=== PATIENT | female | born 1965 | race Caucasian/White ===

== ENCOUNTER 2021-06-28 13:21 | Emergency (ER) | payer OTHER, MEDICARE, MEDICAID, SELFPAY ==
[2021-06-28] VITALS (9 sets, daily range): BP systolic 107–141; BP diastolic 53–85; PULSE 65–89; RESP 18–28; TEMP 36.1; O2SAT 92–98; BMI 44.2
--- NOTE | 2021-06-28 13:36 | ED_ITS ---
HPI - Fall General Chief Complaint: Fall Stated Complaint: Fall Rt. knee & ankle pain Time Seen by Provider: 06/28/21 13:26 Source: patient and EMS Mode of arrival: EMS History of Present Illness HPI Narrative: Patient is a 56-year-old female who was brought in by EMS for injuries that she sustained to her right ankle and right knee and right hip and left elbow and left wrist. Injuries occurred prior to arrival where she was walking inside. She states she slipped on the steps and fell. She did not hit her head. She arrived not in a cervical collar not on a backboard but did not describe any back pain or neck pain. No headache. No loss of consciousness. She did have a air cast placed on her right leg and left arm. She did receive fentanyl IM prior to arrival. Related Data Allergies Allergy/AdvReac Type Severity Reaction Status Date / Time acetaminophen [From [facility]] Allergy Verified 06/28/21 13:33 codeine Allergy Verified 06/28/21 13:34 erythromycin base Allergy Verified 06/28/21 13:34 pamabrom [From [facility]] Allergy Verified 06/28/21 13:33 Review of Systems Constitutional Constitutional: Denies frequent falls and Denies headache(s) ENT Ears, Nose, Mouth, and Throat: Denies vertigo, Denies dizziness and Denies headache(s) Cardiovascular Cardiovascular: Denies chest pain and Denies dyspnea Respiratory Respiratory: Denies dyspnea Gastrointestinal Gastrointestinal: Denies abdominal pain Musculoskeletal Musculoskeletal: Reports system reviewed and no additional complaints, except as documented and Reports as per HPI Integumentary/Breasts Skin/Breast: Reports system reviewed and no additional complaints, except as documented Neurologic Neurologic: Denies confusion, Denies vertigo, Denies dizziness, Denies frequent falls and Denies headache(s) Psychiatric Psychiatric: Denies confusion Hematologic/Lymphatic On Anticoagulants: No Patient History Social History (Updated 06/28/21 @ 14:34 by Mynor Montano DO) lives independently: Yes Exam Initial Vital Signs Initial Vital Signs: Vital Signs Temperature 97.0 F L 06/28/21 13:20 Pulse Rate 79 06/28/21 13:20 Respiratory Rate 22 06/28/21 13:20 Blood Pressure 127/64 06/28/21 13:20 Pulse Oximetry 96 06/28/21 13:20 Const General: cooperative and healthy appearing [facility] Head: normal to inspection and normocephalic Resp Effort & Inspection: normal respiratory effort Auscultation: clear to auscultation bilaterally Cardio Rate: regular rate Rhythm: regular rhythm Pulses: radial pulses present on the left and dorsalis pedis present on the right GI Inspection: normal to inspection and non-distended Back/Spine/Pelvis Cervical Spine: No cervical spinal tenderness Skin General: no rashes or lesions noted Neuro General: patient alert, patient awake and patient oriented x3 Extrem Other: Left lower extremities unremarkable. Right upper extremity is unremarkable. Has tenderness to palpation around the left elbow and also the left wrist. Her left shoulder is unremarkable. Her right lower extremity is tender in the ankle knee and thigh and hip. Psych Appearance: grossly normal and well kempt Scores GCS Simon coma scale eye opening: Spontaneous Simon coma scale verbal response: Orientated Redbird coma scale motor response: Obey commands Redbird coma scale total score: 15 Nexus Score for C-Spine Focal Neurologic deficit present: No Midline spinal tenderness present: No Altered level of conciousness present: No Intoxication present: No Distracting Injury Present: No Nexus Criteria for C-spine: 0 Course Orders Ordered: ED Orders 06/28/21 13:50 XR ankle RT min 3V Stat XR elbow LT min 3V Stat XR hip w pel if done RT 2V Stat XR knee RT 1to2V Stat XR wrist LT min 3V Stat Discontinued Medications Hydromorphone HCl (Hydromorphone 1 Mg Inj) 1 mg IV NOW ONE Stop: 06/28/21 13:51 Last Admin: 06/28/21 14:12 Dose: 1 mg Documented by: NELSY Vital Signs Vital signs: Vital Signs - 8 hr 06/28/21 13:20 06/28/21 13:58 06/28/21 14:00 Temperature 97.0 F L Pulse Rate 79 75 88 Respiratory Rate 22 Blood Pressure 127/64 137/71 Pulse Oximetry 96 94 94 06/28/21 14:30 06/28/21 15:00 06/28/21 15:01 Temperature Pulse Rate 72 65 89 Respiratory Rate 18 18 Blood Pressure 133/63 141/85 H Pulse Oximetry 98 94 94 06/28/21 15:30 06/28/21 15:31 06/28/21 16:00 Temperature Pulse Rate 69 71 68 Respiratory Rate 28 H 26 H 20 Blood Pressure 107/53 L 107/53 L Pulse Oximetry 93 92 92 MDM - Fall Imaging Data Wrist x-ray: Radiologist's Impression: [address] [address] XRay Report Signed Patient: Bernarda Chong MR#: [id number] : 1965 Acct:[id number] Age/Sex: 56 / F Date of Service: 06/28/21 Loc: ED Accession Number: [id number] ?? Procedure: XR wrist LT min 3V Ordering Provider: Mynor Montano D.O. PROCEDURE:? XR WRIST LT MIN 3V ? INDICATIONS: pain after fall ? TECHNIQUE:? 3 views of the wrist were acquired.? ? COMPARISON:? None. ? FINDINGS:? ? Bones:? No acute fractures or dislocations.? No suspicious bony lesions.? Severe degenerative changes of the 1st carpometacarpal joint. ? Soft tissues:? No suspicious soft tissue calcifications.? ? IMPRESSION:? No acute osseous abnormality.? If clinical suspicion and/or symptoms persist, additional imaging with repeat plain films, or advanced imaging (e.g. CT, MRI) may be helpful for further assessment. ? ? Dictated by: Juan R Tee M.D. on 06/28/2021 at 14:57 ? ? Approved by: uJan R Tee M.D. on 06/28/2021 at 15:01 Knee x-ray: Radiologist's Impression: [address] [address] XRay Report Signed Patient: Bernarda Chong MR#: [id number] : 1965 Acct:[id number] Age/Sex: 56 / F Date of Service: 06/28/21 Loc: ED Accession Number: [id number] ?? Procedure: XR knee RT 1to2V Ordering Provider: Mynor Montano D.O. PROCEDURE:? XR KNEE RT 1TO2V ? INDICATIONS:? pain after fall ? TECHNIQUE:? 2 views of the knee were acquired.? ? COMPARISON:? None. ? FINDINGS:? ? Bones:? 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 Hardware appears intact.? No acute osseous abnormality. ? Soft tissues:? No joint effusion.? No suspicious soft tissue calcifications.? Medial varicose veins are noted. ? IMPRESSION:? 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 No acute osseous abnormality.? If clinical suspicion and/or symptoms persist, additional imaging with repeat plain films, or advanced imaging (e.g. CT, MRI) may be helpful for further assessment. ? ? Dictated by: Juan R Tee M.D. on 06/28/2021 at 15:03 ? ? Approved by: Juan R Tee M.D. on 06/28/2021 at 15:03? Ankle x-ray: Radiologist's Impression: [place] [address] XRay Report Signed Patient: Bernarda Chong MR#: [id number] : 1965 Acct:[id number] Age/Sex: 56 / F Date of Service: 06/28/21 Loc: ED Accession Number: [id number] ?? Procedure: XR ankle RT min 3V Ordering Provider: Mynor Montano D.O. PROCEDURE:? XR ANKLE RT MIN 3V ? INDICATIONS:? pain after fall ? TECHNIQUE:? 3 views of the ankle were acquired.? ? COMPARISON:? None. ? FINDINGS:? ? Bones:? No acute fractures or dislocations.? Ankle mortise is normally aligned.? No suspicious bony lesions.? Right knee arthroplasty is partially imaged.? Small posterior calcaneal enthesophyte. ? Soft tissues:? No suspicious soft tissue calcifications. ? ? IMPRESSION:? No acute osseous abnormality.? If clinical suspicion and/or symptoms persist, additional imaging with repeat plain films, or advanced imaging (e.g. CT, MRI) may be helpful for further assessment. ? ? Dictated by: Juan R Tee M.D. on 06/28/2021 at 15:04 ? ? Approved by: Juan R Tee M.D. on 06/28/2021 at 15:05 X-ray hip: Radiologist's Impression: [address] [address] XRay Report Signed Patient: Bernarda Chong MR#: [id number] : 1965 Acct:[id number] Age/Sex: 56 / F Date of Service: 06/28/21 Loc: ED Accession Number: [id number] ?? Procedure: XR hip w pel if done RT 2V Ordering Provider: Mynor Montano D.O. PROCEDURE:? XR HIP W PEL IF DONE RT 2V ? INDICATIONS:? pain after fall ? TECHNIQUE:? AP pelvis with lateral view of the right hip.? ? COMPARISON:? None. ? FINDINGS:? ? Bones:? No acute fractures or dislocations.? Pelvic ring appears intact.? No suspicious bony lesions.? Degenerative changes are noted in the spine. ? Soft tissues:? The visualized bowel gas pattern is normal.? No suspicious soft tissue calcifications.? Surgical clip is seen projecting over the pelvis. ? ? IMPRESSION:? No acute osseous abnormality.? If clinical suspicion and/or symptoms persist, additional imaging with repeat plain films, or advanced imaging (e.g. CT, MRI) may be helpful for further assessment. ? ? Dictated by: Juan R Tee M.D. on 06/28/2021 at 15:09 ? ? Approved by: Juan R Tee M.D. on 06/28/2021 at 15:10?? Elbow x-ray: Radiologist's Impression: [place] [address] XRay Report Signed Patient: Bernarda Chong MR#: [id number] : 1965 Acct:[id number] Age/Sex: 56 / F Date of Service: 06/28/21 Loc: ED Accession Number: [id number] ?? Procedure: XR elbow LT min 3V Ordering Provider: Mynor Montano D.O. PROCEDURE:? XR ELBOW LT MIN 3V ? INDICATIONS:? pain after fall ? TECHNIQUE:? 3 views of the elbow were acquired.? ? COMPARISON:? None. ? FINDINGS:? ? Bones:? No acute fractures or dislocations.? No suspicious bony lesions.? ? Soft tissues:? No elbow joint effusion.? No suspicious soft tissue calcifications.? ? ? IMPRESSION:? No acute osseous abnormality.? If clinical suspicion and/or symptoms persist, additional imaging with repeat plain films, or advanced imaging (e.g. CT, MRI) may be helpful for further assessment. ? ? Dictated by: Juan R Tee M.D. on 06/28/2021 at 15:05 ? ? Approved by: Juan R Tee M.D. on 06/28/2021 at 15:08 MDM Narrative Medical decision making narrative: No fractures noted on any of the x-rays. She did not hit her head. No neck pain. This did appear to be a mechanical fall per her report. Patient can take Tylenol ibuprofen for discomfort. Hold on further workup for now. Patient was given return precautions follow-up instructions. She expressed understanding and agreement. Discharge Plan Departure Patient Disposition: Home Clinical Impression: Arm pain, left, Pain in right leg Instructions: How to Prevent Falls Activity Restrictions/Additional Instructions: There were no fractures noted on the x-rays. You can walk-in use your left arm as tolerated. You can take Tylenol/ibuprofen for any discomfort. Continue the rest of your medications as directed. Contact your primary doctor for a follow- up. Referrals: Kristen Lopez MD [Family Provider] -
--- NOTE | 2021-06-28 13:50 | DI.RAD.S_ITS ---
PROCEDURE: XR ANKLE RT MIN 3V INDICATIONS: pain after fall TECHNIQUE: 3 views of the ankle were acquired. COMPARISON: None. FINDINGS: Bones: No acute fractures or dislocations. Ankle mortise is normally aligned. No suspicious bony lesions. Right knee arthroplasty is partially imaged. Small posterior calcaneal enthesophyte. Soft tissues: No suspicious soft tissue calcifications. IMPRESSION: No acute osseous abnormality. If clinical suspicion and/or symptoms persist, additional imaging with repeat plain films, or advanced imaging (e.g. CT, MRI) may be helpful for further assessment. Dictated by: Juan R Tee M.D. on 06/28/2021 at 15:04 Approved by: Juan R Tee M.D. on 06/28/2021 at 15:05
--- NOTE | 2021-06-28 13:50 | DI.RAD.S_ITS ---
PROCEDURE: XR HIP W PEL IF DONE RT 2V INDICATIONS: pain after fall TECHNIQUE: AP pelvis with lateral view of the right hip. COMPARISON: None. FINDINGS: Bones: No acute fractures or dislocations. Pelvic ring appears intact. No suspicious bony lesions. Degenerative changes are noted in the spine. Soft tissues: The visualized bowel gas pattern is normal. No suspicious soft tissue calcifications. Surgical clip is seen projecting over the pelvis. IMPRESSION: No acute osseous abnormality. If clinical suspicion and/or symptoms persist, additional imaging with repeat plain films, or advanced imaging (e.g. CT, MRI) may be helpful for further assessment. Dictated by: Juan R Tee M.D. on 06/28/2021 at 15:09 Approved by: Juan R Tee M.D. on 06/28/2021 at 15:10
--- NOTE | 2021-06-28 13:50 | DI.RAD.S_ITS ---
PROCEDURE: XR ELBOW LT MIN 3V INDICATIONS: pain after fall TECHNIQUE: 3 views of the elbow were acquired. COMPARISON: None. FINDINGS: Bones: No acute fractures or dislocations. No suspicious bony lesions. Soft tissues: No elbow joint effusion. No suspicious soft tissue calcifications. IMPRESSION: No acute osseous abnormality. If clinical suspicion and/or symptoms persist, additional imaging with repeat plain films, or advanced imaging (e.g. CT, MRI) may be helpful for further assessment. Dictated by: Juan R Tee M.D. on 06/28/2021 at 15:05 Approved by: Juan R Tee M.D. on 06/28/2021 at 15:08
--- NOTE | 2021-06-28 13:50 | DI.RAD.S_ITS ---
PROCEDURE: XR KNEE RT 1TO2V INDICATIONS: pain after fall TECHNIQUE: 2 views of the knee were acquired. COMPARISON: None. FINDINGS: Bones: Postsurgical changes are seen from a total knee arthroplasty. Hardware appears intact. No acute osseous abnormality. Soft tissues: No joint effusion. No suspicious soft tissue calcifications. Medial varicose veins are noted. 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 No acute osseous abnormality. If clinical suspicion and/or symptoms persist, additional imaging with repeat plain films, or advanced imaging (e.g. CT, MRI) may be helpful for further assessment. Dictated by: Juan R Tee M.D. on 06/28/2021 at 15:03 Approved by: Juan R Tee M.D. on 06/28/2021 at 15:03
--- NOTE | 2021-06-28 13:50 | DI.RAD.S_ITS ---
PROCEDURE: XR WRIST LT MIN 3V INDICATIONS: pain after fall TECHNIQUE: 3 views of the wrist were acquired. COMPARISON: None. FINDINGS: Bones: No acute fractures or dislocations. No suspicious bony lesions. Severe degenerative changes of the 1st carpometacarpal joint. Soft tissues: No suspicious soft tissue calcifications. IMPRESSION: No acute osseous abnormality. If clinical suspicion and/or symptoms persist, additional imaging with repeat plain films, or advanced imaging (e.g. CT, MRI) may be helpful for further assessment. Dictated by: Juan R Tee M.D. on 06/28/2021 at 14:57 Approved by: Juan R Tee M.D. on 06/28/2021 at 15:01
[2021-06-28] MEDS: HYDROMORPHONE 1 MG INJ IV (14:12)
== END 2021-06-28 16:01 | disposition home or self-care (01) ==
PROVIDERS: Emergency Provider Emergency Medicine; Family Provider Internal Medicine; PCP Physician Assistant Medical
DX: M25.571 Pain in right ankle and joints of right foot (principal); M25.561 Pain in right knee; M25.551 Pain in right hip; M25.522 Pain in left elbow; M25.532 Pain in left wrist; W10.9XXA Fall (on) (from) unspecified stairs and steps, initial encounter
CPT/HCPCS: 73080; 73110; 73502; 73560; 73610; 96374; 99283; 99284; J1170

== ENCOUNTER 2022-07-16 11:44 | Inpatient (IN) | payer MEDICARE, MEDICAID, SELFPAY ==
[2022-07-16] VITALS (37 sets, daily range): BP systolic 109–149; BP diastolic 48–78; PULSE 30–89; RESP 8–39; TEMP 32–36.8; O2SAT 78–95; BMI 74.4
--- NOTE | 2022-07-16 12:10 | ED_ITS ---
HPI - General Adult General Chief complaint: Shortness of Breath/Dyspnea Stated complaint: Sob, congestive heart failure per pt Time Seen by Provider: 07/16/22 12:04 Source: patient Mode of arrival: Family Vehicle Limitations: no limitations History of Present Illness HPI narrative: Patient is a 57-year-old female. She states she is a history of COPD. Is on home oxygen but only occasionally. Also reports a history of heart failure. [facility] after spending approximately 5 days in the hospital for what sounds like a COPD exacerbation/CHF. I am not 100% convinced this. We have called to request records however what the patient states was that she was receiving nebulizer treatments and was also on ?water restriction. She states that she was not getting any better. There was a conflict with the providers so she decided to leave Against Medical Advice. She came to this emergency department. Here she describes shortness of breath and chest discomfort. No abdominal pain. Generally just does not feel very well. No abdominal pain. No lower extremity swelling. Patient was hypoxic upon arrival. Apparently when she was discharged from the hospital her oxygen saturations were in the 70s. Related Data Allergies Allergy/AdvReac Type Severity Reaction Status Date / Time acetaminophen [From Midol] Allergy Verified 06/28/21 13:33 codeine Allergy Verified 06/28/21 13:34 erythromycin base Allergy Verified 06/28/21 13:34 pamabrom [From Midol] Allergy Verified 06/28/21 13:33 Review of Systems Review of Systems ROS Unobtainable: All systems reviewed & are unremarkable except as noted in HPI and below Patient History Medical History COPD (chronic obstructive pulmonary disease) Social History lives independently: Yes Smoking Status: Current every day smoker Exam Initial Vital Signs Initial Vital Signs: Vital Signs Temperature 98.1 F 07/16/22 11:50 Pulse Rate 73 07/16/22 11:50 Respiratory Rate 24 07/16/22 11:50 Blood Pressure 124/67 07/16/22 11:50 Pulse Oximetry 78 L 07/16/22 11:50 Oxygen Delivery Method Room Air 07/16/22 11:50 Const General: cooperative and ill appearing [facility] Head: normal to inspection and normocephalic Resp Effort & Inspection: labored, respiratory distress and tachypneic Auscultation: rhonchi and wheezes Cardio Rate: regular rate Rhythm: regular rhythm GI Inspection: normal to inspection and non-distended Skin General: no rashes or lesions noted Neuro General: patient alert, patient awake and moves all extremities Extrem General: No edema Psych Appearance: disheveled Course Orders Ordered: ED Orders 07/16/22 12:06 Complete Blood Count AUTO DIFF Stat Comprehensive Metabolic Panel Stat Lactate (Lactic Acid) Stat Lipase Stat NT-proBNP (BNP-Adult 18+) Stat Procalcitonin Stat Troponin & CK Cardiac Panel Stat 07/16/22 12:11 XR chest 1V Stat EKG-12 Lead Stat 07/16/22 13:05 EC echo doppler complete Stat 07/16/22 13:06 Respiratory Panel (Film Array) Stat 07/16/22 13:53 Consult to Cardio/Pulmonary Rehabilitation Routine Consult to Discharge Planning Routine Consult to Occupational Therapy Evaluate & Treat Consult to Physical Therapy Evaluate & Treat Education, smoking cessation ONGOING RT Consult Eval and Treat Now 07/17/22 05:00 Basic Metabolic Panel DAILY Complete Blood Count AUTO DIFF DAILY Magnesium DAILY 07/18/22 05:00 Basic Metabolic Panel DAILY Complete Blood Count AUTO DIFF DAILY 07/19/22 05:00 Basic Metabolic Panel DAILY Complete Blood Count AUTO DIFF DAILY Acetazolamide (Acetazolamide 250 Mg Tablet) 250 mg PO BID [facility] Last Admin: 07/16/22 15:19 Dose: Not Given Documented By: LAURIE Albuterol (Albuterol 2.5 Mg/3 Ml Neb (Adult)) 2.5 mg INH [id number] PRN PRN Reason: Shortness Of Breath Albuterol/Ipratropium (Albuterol/Ipratropium 3 Ml Ampul) 3 ml INH [id number] [facility] Last Admin: 07/16/22 15:05 Dose: 3 ml Documented By: BARBARA Budesonide (Budesonide 0.5 Mg/2 Ml Neb) 0.5 mg INH RTBID [facility] Dextrose (Dextrose 50 % In Water 25 Gm/50 Ml Syringe) 25 gm IV PRN PRN PRN Reason: Hypoglycemia Doxycycline Hyclate (Doxycycline Hyclate 100 Mg Tablet) 100 mg PO BID [facility] Enoxaparin Sodium (Enoxaparin 40 Mg/0.4 Ml Syringe) 40 mg SUBCUT BID [facility] Furosemide (Furosemide 40 Mg/4 Ml Vial) 40 mg IV Q12HR [facility] Insulin Human Lispro (Insulin Lispro 100 Unit/Ml 3ml Vial) 0 unit SUBCUT ACHS [facility]; Protocol Methylprednisolone (Methylprednisolone 125 Mg/2 Ml Vial) 80 mg IV Q12H [facility] Last Admin: 07/16/22 14:47 Dose: Not Given Documented By: LAURIE Naloxone HCl (Naloxone 0.4 Mg/Ml Vial) 0.2 mg IV Q2MIN PRN PRN Reason: Opiate Reversal Discontinued Medications Albuterol/Ipratropium (Albuterol/Ipratropium 3 Ml Ampul) 3 ml INH NOW ONE Stop: 07/16/22 12:11 Last Admin: 07/16/22 12:18 Dose: 3 ml Documented By: BARBARA(2) Albuterol/Ipratropium (Albuterol/Ipratropium 3 Ml Ampul) 3 ml INH [id number] [facility] Doxycycline Hyclate 100 mg/ (Sodium Chloride) 100 mls @ 100 mls/hr IV NOW ONE Stop: 07/16/22 12:56 Last Admin: 07/16/22 14:18 Dose: Not Given Documented By: GLORIA Methylprednisolone (Methylprednisolone 125 Mg/2 Ml Vial) 125 mg IV NOW ONE Stop: 07/16/22 12:35 Last Admin: 07/16/22 12:43 Dose: 125 mg Documented By: NR Vital Signs Vital signs: Vital Signs - 8 hr 07/16/22 11:50 07/16/22 12:18 07/16/22 12:00 Temperature 98.1 F Pulse Rate 73 89 73 Respiratory Rate 24 30 H Blood Pressure 124/67 Pulse Oximetry 78 L 89 L Oxygen Delivery Method Room Air Nasal Cannula Oxygen Flow Rate 4 Fraction of Inspired Oxygen 36 07/16/22 12:30 07/16/22 12:33 07/16/22 12:33 Temperature Pulse Rate 61 61 Respiratory Rate 38 H Blood Pressure 138/60 Pulse Oximetry 91 89 L Oxygen Delivery Method Oxygen Flow Rate Fraction of Inspired Oxygen 07/16/22 13:00 Temperature Pulse Rate 71 Respiratory Rate Blood Pressure Pulse Oximetry 90 L Oxygen Delivery Method Nasal Cannula Oxygen Flow Rate 5 Fraction of Inspired Oxygen Medical Decision Making Lab Data Lab results reviewed: Yes I reviewed the patient's lab results. 07/16/22 12:06 07/16/22 12:06 Labs: Lab Results 07/16/22 07/16/22 07/16/22 Range/Units 01:38 12:06 12:06 WBC 20.6 H (4.5-11.0) X10^3/uL RBC 5.11 (4.0-5.2) X10^6/uL Hgb 15.8 (12.0-16.0) g/dL Hct 48.5 H (36-46) % MCV 94.8 (80-100) fL MCH 30.9 (26-34) PG MCHC 32.6 (30-36) % RDW 14.0 (11.6-14.8) % Plt Count 320 (150-400) X10^3/uL Neut % (Auto) 87.9 H (50-75) % Lymph % (Auto) 5.0 L (25-40) % Riley % (Auto) 7.0 (3-14) % Eos % (Auto) 0.0 L (2-4) % Baso % (Auto) 0.1 (0-2) % Neut # (Auto) 47858 H (9551-7587) /uL Lymph # (Auto) 1000 L (2807-0884) /uL Riley # (Auto) 1400 H (0-900) /uL Eos # (Auto) 0 (0-450) /uL Baso # (Auto) 0 (0-100) /uL ABG pH 7.45 (7.35-7.45) ABG pCO2 69.4 H* (35-45) mmHg ABG pO2 50 L (80-100) mmHg ABG HCO3 48 H (23-27) mmol/L ABG Total CO2 50 H (23-27) mmol/L ABG O2 Saturation 84 L* (95-100) % ABG Base Excess 24.0 H (-2-3) mmol/L FiO2 40 Sodium 136 L (137-145) mmol/L Potassium 4.1 (3.4-5.1) mmol/L Chloride 90 L (98-107) mmol/L Carbon Dioxide 38 H (22-32) mmol/L BUN 41 H (7-17) mg/dL Creatinine 0.80 (0.52-1.04) mg/dL Estimated GFR > 60 (>60) mL/min BUN/Creatinine Ratio 51.3 H (6-22) Glucose 248 H (70-100) mg/dL Lactate (0.7-2.1) mmol/L Calcium 9.5 (8.4-10.2) mg/dL Total Bilirubin 0.7 (0.2-1.3) mg/dL AST 31 (14-36) IU/L ALT 74 H (<35) IU/L Alkaline Phosphatase 83 (38-126) U/L Total Creatine Kinase 36 (30-135) U/L CK-MB (CK-2) TNP CK-MB (CK-2) Rel Index TNP Troponin I < 0.012 (0.01-0.034) ng/mL NT-Pro-B Natriuret Pep 2860 H (<125) pg/mL Total Protein 7.0 (6.3-8.2) g/dL Albumin 3.8 (3.5-5.0) g/dL Globulin 3.2 (1.7-4.1) g/dL Albumin/Globulin Ratio 1.2 (1.0-2.8) Lipase 43 (23-300) U/L Procalcitonin 0.06 (<0.5) ng/mL Chlamy pneumoniae PCR (Not Detect) Adenovirus (PCR) (Not Detect) B. pertussis DNA (PCR) (Not Detecte) B.parapertussis DNA PCR (Not Detecte) Coronavirus OC43 (PCR) (Not Detect) Coronavirus HKU1 (PCR) (Not Detect) Coronavirus 229E (PCR) (Not Detect) SARS-CoV-2 (PCR) (Not Detecte) Coronavirus NL63 (PCR) (Not Detect) Human Metapneumovir PCR (Not Detect) Influenza Type A (PCR) (Not Detect) Influenza Type B (PCR) (Not Detect) M. pneumoniae (PCR) (Not Detect) Parainfluenza 1 (PCR) (Not Detect) Parainfluenza 2 (PCR) (Not Detect) Parainfluenza 3 (PCR) (Not Detect) Parainfluenza 4 (PCR) (Not Detect) RSV (PCR) (Not Detect) Entero/Rhino (PCR) (Not Detect) 07/16/22 07/16/22 Range/Units 12:06 13:06 WBC (4.5-11.0) X10^3/uL RBC (4.0-5.2) X10^6/uL Hgb (12.0-16.0) g/dL Hct (36-46) % MCV (80-100) fL MCH (26-34) PG MCHC (30-36) % RDW (11.6-14.8) % Plt Count (150-400) X10^3/uL Neut % (Auto) (50-75) % Lymph % (Auto) (25-40) % Riley % (Auto) (3-14) % Eos % (Auto) (2-4) % Baso % (Auto) (0-2) % Neut # (Auto) (7527-3286) /uL Lymph # (Auto) (0006-6103) /uL Riley # (Auto) (0-900) /uL Eos # (Auto) (0-450) /uL Baso # (Auto) (0-100) /uL ABG pH (7.35-7.45) ABG pCO2 (35-45) mmHg ABG pO2 (80-100) mmHg ABG HCO3 (23-27) mmol/L ABG Total CO2 (23-27) mmol/L ABG O2 Saturation (95-100) % ABG Base Excess (-2-3) mmol/L FiO2 Sodium (137-145) mmol/L Potassium (3.4-5.1) mmol/L Chloride (98-107) mmol/L Carbon Dioxide (22-32) mmol/L BUN (7-17) mg/dL Creatinine (0.52-1.04) mg/dL Estimated GFR (>60) mL/min BUN/Creatinine Ratio (6-22) Glucose (70-100) mg/dL Lactate 2.2 H (0.7-2.1) mmol/L Calcium (8.4-10.2) mg/dL Total Bilirubin (0.2-1.3) mg/dL AST (14-36) IU/L ALT (<35) IU/L Alkaline Phosphatase (38-126) U/L Total Creatine Kinase (30-135) U/L CK-MB (CK-2) CK-MB (CK-2) Rel Index Troponin I (0.01-0.034) ng/mL NT-Pro-B Natriuret Pep (<125) pg/mL Total Protein (6.3-8.2) g/dL Albumin (3.5-5.0) g/dL Globulin (1.7-4.1) g/dL Albumin/Globulin Ratio (1.0-2.8) Lipase (23-300) U/L Procalcitonin (<0.5) ng/mL Chlamy pneumoniae PCR Not detected (Not Detect) Adenovirus (PCR) Not detected (Not Detect) B. pertussis DNA (PCR) Not detected (Not Detecte) B.parapertussis DNA PCR Not detected (Not Detecte) Coronavirus OC43 (PCR) Not detected (Not Detect) Coronavirus HKU1 (PCR) Not detected (Not Detect) Coronavirus 229E (PCR) Not detected (Not Detect) SARS-CoV-2 (PCR) Not detected (Not Detecte) Coronavirus NL63 (PCR) Not detected (Not Detect) Human Metapneumovir PCR Detected H (Not Detect) Influenza Type A (PCR) Not detected (Not Detect) Influenza Type B (PCR) Not detected (Not Detect) M. pneumoniae (PCR) Not detected (Not Detect) Parainfluenza 1 (PCR) Not detected (Not Detect) Parainfluenza 2 (PCR) Not detected (Not Detect) Parainfluenza 3 (PCR) Not detected (Not Detect) Parainfluenza 4 (PCR) Not detected (Not Detect) RSV (PCR) Not detected (Not Detect) Entero/Rhino (PCR) Not detected (Not Detect) Imaging Data Chest x-ray: Radiologist's Impression: PROCEDURE:? XR CHEST 1V ? INDICATIONS:? SOB ? TECHNIQUE:? One view of the chest was acquired.? ? COMPARISON:? None. ? FINDINGS:? ? Surgical changes and devices:? Left chest wall pacer is seen with an intact lead. ? Lungs and pleura:? Lungs are clear.? No pleural effusions or pneumothorax.? Diff use pulmonary vascular congestion bilaterally. ? Mediastinum:? Mediastinal contours appear normal.? Heart size is enlarged.? ? Bones and chest wall:? No suspicious bony lesions.? Overlying soft tissues appear unremarkable.? ? IMPRESSION:? Cardiomegaly with pulmonary vascular congestion. ECG Data Attestation: I personally reviewed and interpreted this ECG as follows: Interpretation: Sinus rhythm Ventricular rate is 66 Left bundle branch block No ST T wave changes MDM Narrative Medical decision making narrative: Patient arrived hypoxic and in respiratory distress. Attempted to obtain records initially from the hospital where she left Against Medical Advice. Unsure whether not she was being treated for pneumonia, COPD, CHF were all of the above. Patient was placed on oxygen. I did discuss the case with Dr. Mcnair with Internal Medicine for admission who has access to the EMR of the facility where the patient was just discharged. She was able to look up the patient's record. It appears that she was admitted for both COPD and CHF. Given her presentation today patient does require admission to the hospital. She is hypoxic. Patient stated that she is willing to be admitted to the hospital. Medicine will admit for further evaluation and treatment. Discharge Plan Departure Patient Disposition: Admitted As Inpatient Clinical Impression: Acute exacerbation of chronic obstructive airways disease, Congestive heart f ailure, Hypoxia Admit Date/Time: 07/16/22 13:14 Admit Provider: Jadyn Mcnair
--- NOTE | 2022-07-16 12:11 | DI.RAD.S_ITS ---
PROCEDURE: XR CHEST 1V INDICATIONS: SOB TECHNIQUE: One view of the chest was acquired. COMPARISON: None. FINDINGS: Surgical changes and devices: Left chest wall pacer is seen with an intact lead. Lungs and pleura: Lungs are clear. No pleural effusions or pneumothorax. Diffuse pulmonary vascular congestion bilaterally. Mediastinum: Mediastinal contours appear normal. Heart size is enlarged. Bones and chest wall: No suspicious bony lesions. Overlying soft tissues appear unremarkable. IMPRESSION: Cardiomegaly with pulmonary vascular congestion. Dictated by: Agustin Foster M.D. on 07/16/2022 at 11:50 Approved by: Agustin Foster M.D. on 07/16/2022 at 11:50
[2022-07-16] MEDS: ALBUTEROL/IPRATROPIUM 3 ML AMPUL INH ×4 (12:18→22:15)
[2022-07-16 12:20] LABS: Add Manual Diff / Slide Review NO; Basophils Absolute Auto 0 /uL (0-100); Basophils Percent Auto 0.1 % (0-2); Eosinophils Absolute Auto 0 /uL (0-450); Hematocrit 48.5 % (36-46); Hemoglobin 15.8 g/dL (12.0-16.0); Lymphocytes Absolute Auto 1000 /uL (1100-4500); Mean Corpuscular HGB Conc 32.6 % (30-36); Mean Corpuscular Hemoglobin 30.9 PG (26-34); Mean Corpuscular Volume 94.8 fL (80-100); Monocytes Absolute Auto 1400 /uL (0-900); Neutrophils Absolute Auto 18100 /uL (1500-7000); Neutrophils Percent Auto 87.9 % (50-75); Platelet Count 320 X10^3/uL (150-400); Red Blood Cell Count 5.11 X10^6/uL (4.0-5.2); White Blood Cell Count 20.6 X10^3/uL (4.5-11.0)
--- NOTE | 2022-07-16 12:21 | PC.NURSE ---
Pt was at [facility], admitted as patient and left AMA because she felt like they were not listening to her, they would not give her anything to drink and they were giving her medications that would make her feel worse. they said she had bronchitis. has hx of COPD, CHF and states her lungs are filling with fluid she is struggling to breathe.
[2022-07-16 12:25] LABS: Lactate (Lactic Acid) 2.2 mmol/L (0.7-2.1)
[2022-07-16 12:26] LABS: Alanine Aminotransferase 74 IU/L (<35); Albumin 3.8 g/dL (3.5-5.0); Albumin Globulin Ratio 1.2 (1.0-2.8); Alkaline Phosphatase 83 U/L (38-126); Aspartate Aminotransferase 31 IU/L (14-36); BUN Creatinine Ratio 51.3 (6-22); Bilirubin Total 0.7 mg/dL (0.2-1.3); Blood Urea Nitrogen 41 mg/dL (7-17); Calcium 9.5 mg/dL (8.4-10.2); Chloride 90 mmol/L (98-107); Creatine Kinase 36 U/L (30-135); Estimated Glomerular Filt Rate > 60 mL/min (>60); Globulin 3.2 g/dL (1.7-4.1); Glucose 248 mg/dL (70-100); Lipase 43 U/L (23-300); Potassium 4.1 mmol/L (3.4-5.1); Sodium 136 mmol/L (137-145)
[2022-07-16 12:33] LABS: HEMOLYSIS 43 (0-50)
[2022-07-16 12:34] LABS: Carbon Dioxide 38 mmol/L (22-32)
[2022-07-16 12:38] LABS: NT-proBNP (BNP-Adult 18+) 2860 pg/mL (<125); Troponin I < 0.012 ng/mL (0.01-0.034)
[2022-07-16 12:42] LABS: Procalcitonin 0.06 ng/mL (<0.5)
[2022-07-16] MEDS: methylPREDNISolone 125 MG/2 ML VIAL IV (12:43)
--- NOTE | 2022-07-16 13:09 | PM.HP.1 ---
History of Present Illness History of Present Illness Chief complaint: Sob, congestive heart failure per pt Narrative: 57-year-old female with COPD, chronic hypoxic respiratory failure (prescribed 2-3 L of oxygen continuously), chronic systolic congestive heart failure, coronary artery disease with her 1st [place] at age 29 previous cardiac arrest status post pacemaker/AICD placement, diabetes mellitus type 2 on oral antidiabetic agents, class 3 obesity, who presented after leaving Against Medical Advice from [facility] today after a 5 day hospitalization. Patient was admitted to [facility] on July 11, 2022. She presented complaining of a 1 day history of severe shortness of breath. She reported using 2-3 L of oxygen continuously but her granddaughter reported over the month prior she had been increasing it to 4 L due to her shortness of breath. She was given steroids and found to have a combination of both congestive heart failure and COPD exacerbation. She was hypoxic in the emergency department and required supplemental O2. She was admitted with acute on chronic hypoxic respiratory failure felt to be secondary to acute on chronic systolic CHF and COPD exacerbation. She was placed on IV diuretics, fluid restriction of 2000 cc, IV Solu-Medrol, and her usual home medications. She did test positive for human metapneumovirus which was felt to be the etiology of her COPD exacerbation. On July 14, she was able to be weaned from 4 L of oxygen to 3 L of oxygen. However, patient was having her granddaughter bring in potato chips and extra fluids due to complaining of thirst well on the fluid restricted diet. This morning, patient requested to leave Against Medical Advice. She was noted to take her oxygen off and have sats down to 70% room air. She ultimately had her granddaughter take her from [facility] and brought her to [facility] Emergency Department. Her primary care provider referred her to hospice in June of this year. She had an informational visit with hospice but reported she continued to want aggressive interventions for her disease processes. With regard to her coronary artery disease, she reportedly has had multiple MIs as noted with the 1st 1 occurring at age 29. On arrival to the emergency department, patient was noted to be hypoxic at 78% in room air. She came up to 89% on 4 L. Respiratory rate increased over her time in the emergency department to a max of 38. She did require titration to 5 L via nasal cannula due to continuing low oxygen saturations. Labs revealed a white blood cell count of 20.6 (it was 16 at [facility] today), hemoglobin 15.8, hematocrit 40.5, platelets 320. Chemistry revealed a sodium of 136, potassium 4.1, chloride 90, bicarb 38, BUN 41, creatinine 0.8, glucose 248. Initial lactate was 2.2. ALT was elevated at 74. BNP was 2860. Troponin was less than 0.012. Again human metapneumovirus was positive. All other viral respiratory studies were negative. Chest x-ray revealed cardiomegaly with pulmonary vascular congestion. Due to worsening anemia and patient complaints of severe shortness of breath, an ABG was performed. PH was 7.45, pCO2 69, PO2 50, bicarb 48, O2 sat 84% on 40% FiO2. Due to her persistent respiratory distress and overall fatigue, BiPAP was placed upon transfer from the emergency department to the ICU. RT notes since BiPAP has been placed, her respiratory status is improved. She is presently on FiO2 of 35%. She does answer questions with a brief shake her head yes or no. She does outer head yes that she is feeling better with the BiPAP. She also reiterates her full code status. Patient History Medical History COPD (chronic obstructive pulmonary disease) Comment: Past medical history: Chronic hypoxic respiratory failure, prescribed home O2 at 2 L at rest, 3 L with activity Chronic systolic congestive heart failure ejection fraction not known History of cardiac arrest, status post pacemaker/AICD placement Atrial fibrillation on chronic anticoagulation with Eliquis Hypertension Hyperlipidemia Coronary artery disease with prior OH Alcohol dependence in remission History of longstanding tobacco abuse Diabetes mellitus type 2 Obesity with BMI of 74 CKD 3 Chronic pain syndrome Family & Social History Social History: lives independently Yes Safety & Behavioral: Feels Safe in Current Yes Environment Been Physically Hurt or No Threatened By a Person Tobacco & Substance use: Smoking Status Current every day smoker Substance Use Type does not use Comment: Family history: Mother has Alzheimer's disease, hyperlipidemia, and hypertension Father from cancer Social history: Patient quit smoking in 2020. Prior to that she had smoked 1 and half packs per day for nearly 50 years History of alcohol dependence in remission Meds Home Medications and Allergies Allergies Allergy/AdvReac Type Severity Reaction Status Date / Time acetaminophen [From [facility]] Allergy Verified 06/28/21 13:33 codeine Allergy Verified 06/28/21 13:34 erythromycin base Allergy Verified 06/28/21 13:34 pamabrom [From [facility]] Allergy Verified 06/28/21 13:33 Review of Systems Review of Systems Narrative: Unable to obtain review of systems secondary to patient's respiratory status Exam Vital Signs (past 8 hours): - 07/16/22 11:50 07/16/22 12:18 07/16/22 12:00 Temperature 98.1 F Pulse Rate 73 89 73 Respiratory Rate 24 30 H Blood Pressure 124/67 Pulse Oximetry 78 L 89 L Oxygen Delivery Method Room Air Nasal Cannula Oxygen Flow Rate 4 Fraction of Inspired Oxygen 36 07/16/22 12:30 07/16/22 12:33 07/16/22 12:33 Temperature Pulse Rate 61 61 Respiratory Rate 38 H Blood Pressure 138/60 Pulse Oximetry 91 89 L Oxygen Delivery Method Oxygen Flow Rate Fraction of Inspired Oxygen Fraction of Inspired Oxygen 36 SaO2/FiO2 Ratio 247 Oxygen Delivery Method Nasal Cannula Oxygen Flow Rate 4 Narrative Exam Narrative: GEN: Acutely and chronically ill-appearing middle-aged female, drowsy but responsive, appears to be oriented to self and situation, no acute distress HEENT: Normocephalic, face symmetric, pupils equal round reactive to light, extraocular movements intact, sclerae anicteric, conjunctiva clear, oropharyngeal exam can not be performed secondary to having BiPAP in place NECK: Supple, no lymphadenopathy, can not palpate any thyroid nodularity, carotid arteries can not be heard over the BiPAP and respiratory noises CHEST: Respiratory excursions symmetric, clear to auscultation bilaterally CV: Regular rate and rhythm, no murmurs, rubs, gallops, PMI can not be palpated ABD: Firm, obese, nontender, nondistended, bowel sounds present in all 4 quadrants, body habitus limits exam EXTR: Warm, well perfused, no clubbing/cyanosis/edema SKIN: Warm and dry, without rash NEURO: Drowsy, follows simple commands, ears grossly intact PSYCH: Mood, affect, judgment, and insight can not be assessed Objective Labs 07/16/22 12:06 07/16/22 12:06 Labs: Laboratory Results - last 24 hr 07/16/22 07/16/22 07/16/22 12:06 12:06 12:06 WBC 20.6 H RBC 5.11 Hgb 15.8 Hct 48.5 H MCV 94.8 MCH 30.9 MCHC 32.6 RDW 14.0 Plt Count 320 Neut % (Auto) 87.9 H Lymph % (Auto) 5.0 L Toole % (Auto) 7.0 Eos % (Auto) 0.0 L Baso % (Auto) 0.1 Neut # (Auto) 41256 H Lymph # (Auto) 1000 L Toole # (Auto) 1400 H Eos # (Auto) 0 Baso # (Auto) 0 Sodium 136 L Potassium 4.1 Chloride 90 L Carbon Dioxide 38 H BUN 41 H Creatinine 0.80 Estimated GFR > 60 BUN/Creatinine Ratio 51.3 H Glucose 248 H Lactate 2.2 H Calcium 9.5 Total Bilirubin 0.7 AST 31 ALT 74 H Alkaline Phosphatase 83 Total Creatine Kinase 36 CK-MB (CK-2) TNP CK-MB (CK-2) Rel Index TNP Troponin I < 0.012 NT-Pro-B Natriuret Pep 2860 H Total Protein 7.0 Albumin 3.8 Globulin 3.2 Albumin/Globulin Ratio 1.2 Lipase 43 Procalcitonin 0.06 Assessment & Plan Assessment & Plan narrative: 1. Acute on chronic hypoxic and hypercarbic respiratory failure Patient presents after leaving outside hospital Against Medical Advice after a 5 day hospital stay. While there, she received diuresis, fluid restriction, IV steroids, and respiratory treatments. Upon arriving to our emergency department, she was hypoxic with room air saturations of 70%, tachypneic, and noting severe respiratory distress. Chest x-ray reveals evidence of congestive heart failure. Exam also indicates a component of COPD exacerbation. Will restart furosemide 40 mg IV b.i.d.. Will also place on Solu-Medrol 80 mg IV q.12. She does have significant hypercarbia thus will also add Diamox. We will continue BiPAP for relief of her severe respiratory distress. Fortunately, she appears reasonably well compensated by her ABG. 2. Acute on chronic systolic congestive heart failure exacerbation Congestive heart failure noted on chest x-ray as well as on previous imaging done at the outside hospital. No echocardiogram available in records to denote the severity of her congestive heart failure. Will obtain an echocardiogram. Continue diuresis as noted above with IV Lasix and Diamox. She does have significant azotemia with a BUN of 41 today. This appears to be consistent with labs at the outside hospital. We will continue close monitoring. There is also report of CKD 3, but here her creatinine is normal at 0.8. We will monitor her renal function closely. Ashraf catheter will be placed. 3. COPD exacerbation, likely secondary to metapneumovirus infection Continue her outpatient respiratory medications. As noted, continue IV Solu-Medrol 80 mg q.12. Will start budesonide as well. Duo nebs 4 times daily scheduled 4. Metapneumovirus infection She tested positive both at the outside hospital and on today's labs. She is afebrile. She does have a leukocytosis but this is likely steroid induced rather than related to an infection as she was afebrile and not complaining of URI symptoms for the duration of her hospitalization at the outside hospital. 5. Coronary artery disease with prior OH Troponin here is negative. Await medication reconciliation. 6. History of cardiac arrest, status post pacemaker/AICD placement Per outside records, she reports receiving a shock a couple of times a year. I am uncertain when she last had her device interrogated. 7. Atrial fibrillation on chronic anticoagulation with Eliquis No RVR at this time. Regular on exam. Await medication reconciliation to confirm that she is indeed taking Eliquis at this time. 8. Diabetes mellitus type 2 On oral medications only per report. A1c at the outside facility was reported to be 8%. Will place on fingersticks and sliding scale. 9. Class 3 obesity with BMI of 42.2 Her obesity puts her at significant risk of morbidity and mortality. Would greatly benefit from weight reduction. 10. Reported CKD stage 3 As noted, outside documentation shows history of CKD 3. However here her GFR and creatinine are normal. Will monitor. 11. Chronic pain syndrome uncertain if she takes chronic opioid medication at baseline. She is not presently complaining of any pain. Would avoid opioids for now given her BiPAP dependence, as I suspect she also has a component of obesity hypoventilation syndrome. 12. Hypertension Blood pressures are normotensive here. Await medication reconciliation to confirm meds. 13. Hyperlipidemia Await medication reconciliation to confirm meds. Code status Full Prophylaxis Appears to be on Eliquis chronically. Await medication reconciliation Disposition Admit to ICU with eICU consult. I personally spoke with Dr. Baltazar. Time Spent With Patient Critical Care time: I spent a total of [] minutes of critical care time on this patient's care today; this time is exclusive of procedural time.
[2022-07-16 13:53] LABS: pH ABG 7.45 (7.35-7.45)
[2022-07-16 13:54] LABS: HCO3 ABG 48 mmol/L (23-27); PCO2 ABG 69.4 mmHg (35-45); PO2 ABG 50 mmHg (80-100); TCO2 ABG 50 mmol/L (23-27)
[2022-07-16 13:55] LABS: Fractionated Inspired Oxygen 40; Oxygen Saturation ABG 84 % (95-100)
[2022-07-16 14:03] LABS: Adenovirus Not Detected (Not Detect); B. parapertussis Not Detected (Not Detecte); Bordetella pertussis Not Detected (Not Detecte); Chlamydophila pneumoniae Not Detected (Not Detect); Coronavirus 229E Not Detected (Not Detect); Coronavirus HKU1 Not Detected (Not Detect); Coronavirus NL 63 Not Detected (Not Detect); Coronavirus OC43 Not Detected (Not Detect); Human Metapneumovirus Detected (Not Detect); Human Rhinovirus/Enterovirus Not Detected (Not Detect); Influenza A Not Detected (Not Detect); Influenza B Not Detected (Not Detect); Mycoplasma pneumoniae Not Detected (Not Detect); Parainfluenza Virus 1 Not Detected (Not Detect); Parainfluenza Virus 2 Not Detected (Not Detect); Parainfluenza Virus 3 Not Detected (Not Detect); Parainfluenza Virus 4 Not Detected (Not Detect); Respiratory Syncytial Virus Not Detected (Not Detect); SARS- CoV-2 Not Detected (Not Detecte)
[2022-07-16 14:16] LABS: Reflexed Lactate in 2 Hours Y
[2022-07-16 16:14] LABS: Lactate 2HR (Lactic Acid Rflx) 2.2 mmol/L (0.7-2.1)
[2022-07-16] MEDS: INSULIN LISPRO 100 UNIT/ML 3ML VIAL SUBCUT ×2 (17:08→22:02)
--- NOTE | 2022-07-16 17:20 | P.TELICUCN_ITS ---
History of Present Illness Consult details IF CAMERA ACTIVATED, patient seen via real-time interactive audiovisual communication: Camera activated Chief complaint: Sob, congestive heart failure per pt Consent obtained for tele-shipping specialist care: Yes Patient Location: ICU Provider location (State): [place] Other participants/roles: Dr. Mcnair, RN Narrative: 57-year-old female with COPD, chronic hypoxic respiratory failure (prescribed 2- 3 L of oxygen continuously), chronic systolic congestive heart failure, coronary artery disease with her 1st [place] at age 29 previous cardiac arrest status post pacemaker/AICD placement, diabetes mellitus type 2 on oral antidiabetic agents, class 3 obesity, admitted tohe ICU for furhter management of acute hypoxemic resp fialure which likely multifactorial from AECOPD, CHF exacerbation + human metapneumovirus. Pt was recently hospitalized and signed out AMA, however due to worsneing SOB she presented [facility], and required bipapa due worsneign hypoxemia. She has end stage COPD at baseline and in on 2-3l NC, but her requirements have increased lately. phenotype of her COPD is unknown due ot lack of CT imaging. On ym eval this afternoon ,she was somnolescent but synchrnous on bipap with adequate TV. ABG with hypercapnea which likely her ba seline, but she is not acidotic. XR chest with pulmonary vascular congestion, additionaly her left hemidiaphragm is elevated - however the film is very rotated. [facility] Medical History COPD (chronic obstructive pulmonary disease) Social History lives independently: Yes Smoking Status: Current every day smoker Current Medications Current Medications Medications: Visit Medications (administered) Generic Name Dose Route Start Last Admin Trade Name Freq PRN Reason Stop Dose Admin Acetazolamide 250 mg 07/16/22 14:15 07/16/22 15:19 Acetazolamide 250 Mg Tablet PO Not Given BID BRANDON Albuterol/Ipratropium 3 ml 07/16/22 15:00 07/16/22 15:05 Albuterol/Ipratropium 3 Ml Ampul INH 3 ml [id number] BRANDON Administration Insulin Human Lispro 0 unit 07/16/22 16:45 07/16/22 17:08 Insulin Lispro 100 Unit/Ml 3ml Vial SUBCUT 3 unit ACHS [facility] Administration Protocol Methylprednisolone 80 mg 07/16/22 13:53 07/16/22 14:47 Methylprednisolone 125 Mg/2 Ml Vial IV Not Given Q12H [facility] Review of Systems Review of Systems Narrative: unable to obtain Exam Vital Signs (past 8 hours): - 07/16/22 11:50 07/16/22 12:18 07/16/22 12:00 Temperature 98.1 F Pulse Rate 73 89 73 Respiratory Rate 24 30 H Blood Pressure 124/67 Pulse Oximetry 78 L 89 L Oxygen Delivery Method Room Air Nasal Cannula Oxygen Flow Rate 4 Fraction of Inspired Oxygen 36 07/16/22 12:30 07/16/22 12:33 07/16/22 12:33 Temperature Pulse Rate 61 61 Respiratory Rate 38 H Blood Pressure 138/60 Pulse Oximetry 91 89 L Oxygen Delivery Method Oxygen Flow Rate Fraction of Inspired Oxygen 07/16/22 13:00 07/16/22 14:18 07/16/22 13:30 Temperature Pulse Rate 71 Respiratory Rate Blood Pressure 129/60 120/54 L Pulse Oximetry 90 L Oxygen Delivery Method Nasal Cannula Oxygen Flow Rate 5 Fraction of Inspired Oxygen 35 07/16/22 13:30 07/16/22 14:00 07/16/22 14:19 Temperature Pulse Rate 30 L 59 L Respiratory Rate Blood Pressure 129/60 Pulse Oximetry 88 L 86 L Oxygen Delivery Method Nasal Cannula Oxygen Flow Rate 5 Fraction of Inspired Oxygen 07/16/22 14:19 07/16/22 14:30 07/16/22 15:05 Temperature Pulse Rate 60 60 Respiratory Rate Blood Pressure Pulse Oximetry 89 L 90 L Oxygen Delivery Method Oxygen Flow Rate Fraction of Inspired Oxygen 35 07/16/22 13:41 07/16/22 16:36 07/16/22 17:13 Temperature 97.5 F L Pulse Rate 60 66 Respiratory Rate 33 H 30 H Blood Pressure 112/56 L Pulse Oximetry 90 L 93 Oxygen Delivery Method BiPAP High Flow Nasal Cannula Oxygen Flow Rate 4 Fraction of Inspired Oxygen Fraction of Inspired Oxygen 35 SaO2/FiO2 Ratio 247 Oxygen Delivery Method High Flow Nasal Cannula Oxygen Flow Rate 4 Narrative Exam Narrative: surrogate for full exam is primary team Objective Labs 07/16/22 12:06 07/16/22 12:06 Labs: Laboratory Results - last 24 hr 07/16/22 07/16/22 07/16/22 01:38 12:06 12:06 WBC 20.6 H RBC 5.11 Hgb 15.8 Hct 48.5 H MCV 94.8 MCH 30.9 MCHC 32.6 RDW 14.0 Plt Count 320 Neut % (Auto) 87.9 H Lymph % (Auto) 5.0 L [place] % (Auto) 7.0 Eos % (Auto) 0.0 L Baso % (Auto) 0.1 Neut # (Auto) 89641 H Lymph # (Auto) 1000 L [place] # (Auto) 1400 H Eos # (Auto) 0 Baso # (Auto) 0 ABG pH 7.45 ABG pCO2 69.4 H* ABG pO2 50 L ABG HCO3 48 H ABG Total CO2 50 H ABG O2 Saturation 84 L* ABG Base Excess 24.0 H FiO2 40 Sodium 136 L Potassium 4.1 Chloride 90 L Carbon Dioxide 38 H BUN 41 H Creatinine 0.80 Estimated GFR > 60 BUN/Creatinine Ratio 51.3 H Glucose 248 H Lactate Calcium 9.5 Total Bilirubin 0.7 AST 31 ALT 74 H Alkaline Phosphatase 83 Total Creatine Kinase 36 CK-MB (CK-2) TNP CK-MB (CK-2) Rel Index TNP Troponin I < 0.012 NT-Pro-B Natriuret Pep 2860 H Total Protein 7.0 Albumin 3.8 Globulin 3.2 Albumin/Globulin Ratio 1.2 Lipase 43 Procalcitonin 0.06 Chlamy pneumoniae PCR Adenovirus (PCR) B. pertussis DNA (PCR) B.parapertussis DNA PCR Coronavirus OC43 (PCR) Coronavirus HKU1 (PCR) Coronavirus 229E (PCR) SARS-CoV-2 (PCR) Coronavirus NL63 (PCR) Human Metapneumovir PCR Influenza Type A (PCR) Influenza Type B (PCR) M. pneumoniae (PCR) Parainfluenza 1 (PCR) Parainfluenza 2 (PCR) Parainfluenza 3 (PCR) Parainfluenza 4 (PCR) RSV (PCR) Entero/Rhino (PCR) 07/16/22 07/16/22 07/16/22 12:06 13:06 13:30 WBC RBC Hgb Hct MCV MCH MCHC RDW Plt Count Neut % (Auto) Lymph % (Auto) [place] % (Auto) Eos % (Auto) Baso % (Auto) Neut # (Auto) Lymph # (Auto) [place] # (Auto) Eos # (Auto) Baso # (Auto) ABG pH ABG pCO2 ABG pO2 ABG HCO3 ABG Total CO2 ABG O2 Saturation ABG Base Excess FiO2 Sodium Potassium Chloride Carbon Dioxide BUN Creatinine Estimated GFR BUN/Creatinine Ratio Glucose Lactate 2.2 H 2.2 H Calcium Total Bilirubin AST ALT Alkaline Phosphatase Total Creatine Kinase CK-MB (CK-2) CK-MB (CK-2) Rel Index Troponin I NT-Pro-B Natriuret Pep Total Protein Albumin Globulin Albumin/Globulin Ratio Lipase Procalcitonin Chlamy pneumoniae PCR Not detected Adenovirus (PCR) Not detected B. pertussis DNA (PCR) Not detected B.parapertussis DNA PCR Not detected Coronavirus OC43 (PCR) Not detected Coronavirus HKU1 (PCR) Not detected Coronavirus 229E (PCR) Not detected SARS-CoV-2 (PCR) Not detected Coronavirus NL63 (PCR) Not detected Human Metapneumovir PCR Detected H Influenza Type A (PCR) Not detected Influenza Type B (PCR) Not detected M. pneumoniae (PCR) Not detected Parainfluenza 1 (PCR) Not detected Parainfluenza 2 (PCR) Not detected Parainfluenza 3 (PCR) Not detected Parainfluenza 4 (PCR) Not detected RSV (PCR) Not detected Entero/Rhino (PCR) Not detected Assessment & Plan Assessment and plan (1) Acute exacerbation of chronic obstructive airways disease: Status: Acute (2) Acute hypoxemic respiratory failure: Status: Acute (3) Acute metabolic encephalopathy: Status: Acute (4) CHF exacerbation: Status: Acute (5) Human metapneumovirus (hMPV) pneumonia: Status: Acute Assessment & Plan narrative: continue bipap for now if her respiratory function worsens oer GCS drops < 8, she will nee to be intubated trend ABG TTE map at goal NPO while on bipap trend bmp and montor UO goal negative balance empric abx - though I do think her eleavted wbc is also due to steroids from previous hospitalizaiton dvt ppx repeat XR chest f/u d esantiago cx duonebs steroid taper consider CT chest when imrpoved palliative care consult Time Spent With Patient Critical Care time: I spent a total of 35[] minutes of critical care time on this patient's care today; this time is exclusive of procedural time.
--- NOTE | 2022-07-16 17:27 | PC.NURSE ---
patient tolerated bipap from admission to roughly 1715. switched to 4L high-flow NC while eating.
[2022-07-16 18:58] LABS: MRSA (Nasal) PCR Not Detected (Not Detect)
[2022-07-16] MEDS: BUDESONIDE 0.5 MG/2 ML NEB INH (20:08)
[2022-07-16] MEDS: ALBUTEROL 2.5 MG/3 ML NEB (ADULT) INH (20:08)
[2022-07-16] MEDS: diphenhydrAMINE 25 MG TABLET 50 MG PO (20:14)
[2022-07-16] MEDS: ONDANSETRON 4 MG/2 ML INJ IV (20:14)
--- NOTE | 2022-07-16 20:38 | PM.ICURNDS ---
- :: This patient was seen via real time interactive two-way audiovisual telecommunication. Rakeleitradha seems to be improving, currently off bipap on NC and is not hypoxemic. will aim for a net negative balance, and contineu bipap overnight, cont nebs prn abd steroid taper.
[2022-07-16] MEDS: acetaZOLAMIDE 250 MG TABLET PO (21:22)
[2022-07-16] MEDS: DOXYCYCLINE HYCLATE 100 MG TABLET PO (21:22)
[2022-07-16 21:49] LABS: Glucose 502 mg/dL (70-100)
--- NOTE | 2022-07-16 21:58 | PC.NURSE ---
accucheck done with result of > 500, test repeated twice and lab work drawn. Agustín informed and awaiting lab results. Lab results 502 and Agustín notified. Sliding scale changed to medium dose and awaiting pharmacy approval.
[2022-07-16] MEDS: INSULIN REGULAR 100 UNIT/ML 3 ML VIAL SUBCUT (22:15)
[2022-07-16] MEDS: FUROSEMIDE 40 MG/4 ML VIAL IV (23:52)
[2022-07-17] VITALS (55 sets, daily range): BP systolic 96–168; BP diastolic 52–99; PULSE 59–81; RESP 14–47; TEMP 32–36.8; O2SAT 89–97
[2022-07-17] MEDS: methylPREDNISolone 125 MG/2 ML VIAL 80 MG IV ×2 (01:54→14:47)
[2022-07-17] MEDS: OXYCODONE IR 5 MG TABLET PO ×5 (01:59→21:02)
[2022-07-17] MEDS: ACETAMINOPHEN 325 MG TABLET 650 MG PO ×2 (02:00→21:03)
[2022-07-17 05:20] LABS: Add Manual Diff / Slide Review NO; Basophils Absolute Auto 0 /uL (0-100); Basophils Percent Auto 0.1 % (0-2); Eosinophils Absolute Auto 0 /uL (0-450); Hematocrit 46.5 % (36-46); Hemoglobin 15.2 g/dL (12.0-16.0); Lymphocytes Absolute Auto 600 /uL (1100-4500); Lymphocytes Percent Auto 3.7 % (25-40); Mean Corpuscular HGB Conc 32.7 % (30-36); Mean Corpuscular Hemoglobin 30.9 PG (26-34); Mean Corpuscular Volume 94.5 fL (80-100); Monocytes Absolute Auto 800 /uL (0-900); Monocytes Percent Auto 4.6 % (3-14); Neutrophils Absolute Auto 15700 /uL (1500-7000); Neutrophils Percent Auto 91.6 % (50-75); Platelet Count 264 X10^3/uL (150-400); Red Blood Cell Count 4.92 X10^6/uL (4.0-5.2); Red Cell Distribution Width 13.9 % (11.6-14.8); White Blood Cell Count 17.1 X10^3/uL (4.5-11.0)
[2022-07-17 05:30] LABS: BUN Creatinine Ratio 33.1 (6-22); Blood Urea Nitrogen 42 mg/dL (7-17); Calcium 8.7 mg/dL (8.4-10.2); Chloride 90 mmol/L (98-107); Estimated Glomerular Filt Rate 49 mL/min (>60); Glucose 290 mg/dL (70-100); HEMOLYSIS < 15 (0-50); Magnesium 2.3 mg/dL (1.6-2.3); Potassium 4.2 mmol/L (3.4-5.1); Sodium 137 mmol/L (137-145)
--- NOTE | 2022-07-17 05:32 | DI.ECHO.S_ITS ---
Interpretation Summary The ejection fraction is estimated to be 25-30%. There is moderate to severe global hypokinesis of the left ventricle. Severe hypokinesisi of the inferior wall and posterolateral wall. There is a catheter/pacemaker lead seen in the right atrium. There is mild mitral regurgitation. There is a trace or physiologic amount of tricuspid regurgitation. Procedure: A two-dimensional transthoracic echocardiogram with color flow and Doppler was performed. The study quality was technically difficult. Comparison is made with the echocardiogram of 01/21/2020. EKG artifact throughout exam. The heart rate ranged between 50-80 bpm during the study. Left Ventricle: The left ventricle is moderately dilated. There is mild concentric left ventricular hypertrophy. The ejection fraction is estimated to be 25-30%. There is moderate to severe global hypokinesis of the left ventricle. Right Ventricle: The right ventricle is normal size. There is a pacemaker lead in the right ventricle. Right ventricular systolic function is mildly reduced. Atria: The left atrial size is normal. Right atrial size is normal. There is a catheter/pacemaker lead seen in the right atrium. There is no Doppler evidence for an interatrial shunt. Mitral Valve: The mitral valve is normal in structure and function. There is mild mitral regurgitation. Aortic Valve: The aortic valve opens well. There is no aortic valve stenosis. No aortic regurgitation is present. Tricuspid Valve: The tricuspid valve is normal in structure and function. There is a trace or physiologic amount of tricuspid regurgitation. Pulmonary artery pressures cannot be estimated because of the lack of a measurable TR jet velocity. Pulmonic Valve: The pulmonic valve is not well visualized. There is no pulmonic valvular regurgitation. Great Vessels: The aortic root is normal size. The dimensions of the ascending aorta are normal. The IVC is of normal diameter and collapses greater than 50% with a sniff. This suggests a low right atrial pressure of 3 mm Hg. Pericardium/ Pleura There is no pericardial effusion. There is no pleural effusion. MMode/2D Measurements & Calculations LVIDd: 6.5 cm LVOT diam: 2.2 cm LVIDs: 5.5 cm Ao root diam: 2.9 cm FS: 15.9 % asc Aorta Diam: 3.4 cm EPSS: 2.2 cm Ao Arch Diam (Prox Trans): 3.0 cm IVSd: 1.1 cm LVPWd: 0.87 cm LV conner. diameter/BSA (cm/m^2): 3.1 LV sys. diameter/BSA (cm/m^2): 2.6 LA A2 area: 20.8 cm2 RA long axis: 5.6 cm LA A4 area: 21.1 cm2 RA area: 19.3 cm2 LA length (vol): 5.5 cm RA vol: 56.8 ml LA vol: 68.4 ml RA : 27.2 ml/m2 LA vol index: 32.8 ml/m2 IVC diam: 1.2 cm RVD1 (basal): 3.6 cm RVD2 (mid): 2.9 cm TAPSE: 1.6 cm Doppler Measurements & Calculations Ao V2 max: 166.3 cm/sec LVOT Max Vijay: 74.7 cm/sec Ao V2 mean: 128.3 cm/sec LV V1 max P.2 mmHg Ao max P.1 mmHg LV V1 VTI: 17.3 cm Ao mean P.0 mmHg SHELLI(I,D): 1.8 cm2 Ao V2 VTI: 37.1 cm SHELLI(V,D): 1.7 cm2 sev ratio: 0.47 SHELLI indexed to BSA (cm^2/m^2): 0.86 MV E max vijay: 74.7 cm/sec PA V2 max: 109.6 cm/sec MV A max vijay: 49.9 cm/sec PA V2 mean: 76.5 cm/sec MV E/A: 1.5 PA mean P.5 mmHg Med Peak E' Vijay: 3.8 cm/sec E/E' med: 19.5 Lat Peak E' Vijay: 7.2 cm/sec E/E' lat: 10.4 E/e' average: 15.0 MV dec time: 0.24 sec SV(LVOT): 66.8 ml Reading Physician:09:48 AM
[2022-07-17 05:37] LABS: Carbon Dioxide 39 mmol/L (22-32)
[2022-07-17] MEDS: ALBUTEROL/IPRATROPIUM 3 ML AMPUL INH ×5 (05:52→23:27)
--- NOTE | 2022-07-17 09:00 | P.PN_ITS ---
Subjective Subjective Interval history: Patient needed bipap briefly this morning but now off. Able to downgrade from ICU status. Echo pending. Exam Vital Signs (past 8 hours): - 07/17/22 01:01 07/17/22 01:01 07/17/22 01:25 Temperature Pulse Rate 60 60 Respiratory Rate 20 35 H Blood Pressure 120/57 L Pulse Oximetry 97 92 Oxygen Delivery Method Oxygen Flow Rate 4 4 4 07/17/22 01:30 07/17/22 01:30 07/17/22 02:01 Temperature Pulse Rate 60 60 Respiratory Rate 31 H 26 H Blood Pressure 142/72 H Pulse Oximetry 93 96 Oxygen Delivery Method Oxygen Flow Rate 4 4 4 07/17/22 02:01 07/17/22 02:13 07/17/22 02:31 Temperature Pulse Rate 60 62 Respiratory Rate 25 H 26 H Blood Pressure 132/58 L Pulse Oximetry 95 95 Oxygen Delivery Method Oxygen Flow Rate 4 4 4 07/17/22 02:31 07/17/22 03:00 07/17/22 03:00 Temperature Pulse Rate 60 Respiratory Rate 31 H Blood Pressure 121/77 125/60 Pulse Oximetry 90 L Oxygen Delivery Method Oxygen Flow Rate 4 4 4 07/17/22 03:05 07/17/22 04:00 07/17/22 03:30 Temperature Pulse Rate 60 60 Respiratory Rate 28 H 25 H Blood Pressure Pulse Oximetry 95 95 Oxygen Delivery Method High Flow Nasal Cannula Oxygen Flow Rate 4 4 07/17/22 03:30 07/17/22 04:00 07/17/22 04:00 Temperature 97.0 F L Pulse Rate 60 Respiratory Rate 24 Blood Pressure 136/63 145/67 H Pulse Oximetry 95 Oxygen Delivery Method Oxygen Flow Rate 4 4 4 07/17/22 04:28 07/17/22 04:30 07/17/22 04:30 Temperature Pulse Rate 60 60 Respiratory Rate 30 H 27 H Blood Pressure 151/66 H Pulse Oximetry 94 94 Oxygen Delivery Method Oxygen Flow Rate 4 4 4 07/17/22 05:01 07/17/22 05:01 07/17/22 05:03 Temperature Pulse Rate 60 60 Respiratory Rate 24 28 H Blood Pressure 135/62 Pulse Oximetry 96 96 Oxygen Delivery Method Oxygen Flow Rate 4 4 4 07/17/22 05:31 07/17/22 05:31 07/17/22 06:01 Temperature Pulse Rate 60 Respiratory Rate 26 H Blood Pressure 132/60 133/60 Pulse Oximetry 95 Oxygen Delivery Method Oxygen Flow Rate 4 4 4 07/17/22 06:01 07/17/22 06:31 07/17/22 06:31 Temperature Pulse Rate 60 60 Respiratory Rate 33 H 26 H Blood Pressure 123/56 L Pulse Oximetry 90 L 92 Oxygen Delivery Method Oxygen Flow Rate 4 4 4 07/17/22 06:54 07/17/22 07:00 07/17/22 07:00 Temperature Pulse Rate 60 60 Respiratory Rate 34 H 32 H Blood Pressure 110/54 L Pulse Oximetry 94 92 Oxygen Delivery Method Oxygen Flow Rate 4 07/17/22 07:30 07/17/22 07:31 07/17/22 07:31 Temperature Pulse Rate 60 60 Respiratory Rate 22 24 Blood Pressure 103/62 Pulse Oximetry 93 92 Oxygen Delivery Method Oxygen Flow Rate 07/17/22 08:00 07/17/22 08:01 07/17/22 08:01 Temperature 97.7 F Pulse Rate 60 60 Respiratory Rate 22 24 Blood Pressure 122/57 L Pulse Oximetry 92 92 Oxygen Delivery Method Oxygen Flow Rate 07/17/22 08:30 07/17/22 08:31 07/17/22 08:31 Temperature Pulse Rate 68 61 Respiratory Rate 26 H 27 H Blood Pressure 128/56 L Pulse Oximetry 90 L 91 Oxygen Delivery Method Oxygen Flow Rate Fraction of Inspired Oxygen 36 SaO2/FiO2 Ratio 250 Oxygen Delivery Method High Flow Nasal Cannula Oxygen Flow Rate 4 Narrative Exam Narrative: GEN: Acutely and chronically ill-appearing middle-aged female, drowsy but responsive, appears to be oriented to self and situation, no acute distress HEENT: Normocephalic, face symmetric, pupils equal round reactive to light, ex traocular movements intact, sclerae anicteric, conjunctiva clear, oropharyngeal exam can not be performed secondary to having BiPAP in place NECK: Supple, no lymphadenopathy, can not palpate any thyroid nodularity, carotid arteries can not be heard over the BiPAP and respiratory noises CHEST: Respiratory excursions symmetric, diffuse wheezes and coarse breath sounds CV: Regular rate and rhythm, no murmurs, rubs, gallops, PMI can not be palpated ABD: Firm, obese, nontender, nondistended, bowel sounds present in all 4 quadrants, body habitus limits exam EXTR: Warm, well perfused, no clubbing/cyanosis/edema SKIN: Warm and dry, without rash NEURO: Drowsy, follows simple commands, ears grossly intact PSYCH: Mood, affect, judgment, and insight can not be assessed Objective Labs 07/17/22 04:39 07/17/22 04:39 Labs: Laboratory Results - last 24 hr 07/16/22 07/16/22 07/16/22 01:38 12:06 12:06 WBC 20.6 H RBC 5.11 Hgb 15.8 Hct 48.5 H MCV 94.8 MCH 30.9 MCHC 32.6 RDW 14.0 Plt Count 320 Neut % (Auto) 87.9 H Lymph % (Auto) 5.0 L [place] % (Auto) 7.0 Eos % (Auto) 0.0 L Baso % (Auto) 0.1 Neut # (Auto) 01704 H Lymph # (Auto) 1000 L [place] # (Auto) 1400 H Eos # (Auto) 0 Baso # (Auto) 0 ABG pH 7.45 ABG pCO2 69.4 H* ABG pO2 50 L ABG HCO3 48 H ABG Total CO2 50 H ABG O2 Saturation 84 L* ABG Base Excess 24.0 H FiO2 40 Sodium 136 L Potassium 4.1 Chloride 90 L Carbon Dioxide 38 H BUN 41 H Creatinine 0.80 Estimated GFR > 60 BUN/Creatinine Ratio 51.3 H Glucose 248 H Lactate Calcium 9.5 Magnesium Total Bilirubin 0.7 AST 31 ALT 74 H Alkaline Phosphatase 83 Total Creatine Kinase 36 CK-MB (CK-2) TNP CK-MB (CK-2) Rel Index TNP Troponin I < 0.012 NT-Pro-B Natriuret Pep 2860 H Total Protein 7.0 Albumin 3.8 Globulin 3.2 Albumin/Globulin Ratio 1.2 Lipase 43 Procalcitonin 0.06 Nasal Screen MRSA (PCR) Chlamy pneumoniae PCR Adenovirus (PCR) B. pertussis DNA (PCR) B.parapertussis DNA PCR Coronavirus OC43 (PCR) Coronavirus HKU1 (PCR) Coronavirus 229E (PCR) SARS-CoV-2 (PCR) Coronavirus NL63 (PCR) Human Metapneumovir PCR Influenza Type A (PCR) Influenza Type B (PCR) M. pneumoniae (PCR) Parainfluenza 1 (PCR) Parainfluenza 2 (PCR) Parainfluenza 3 (PCR) Parainfluenza 4 (PCR) RSV (PCR) Entero/Rhino (PCR) 07/16/22 07/16/22 07/16/22 12:06 13:06 13:30 WBC RBC Hgb Hct MCV MCH MCHC RDW Plt Count Neut % (Auto) Lymph % (Auto) [place] % (Auto) Eos % (Auto) Baso % (Auto) Neut # (Auto) Lymph # (Auto) [place] # (Auto) Eos # (Auto) Baso # (Auto) ABG pH ABG pCO2 ABG pO2 ABG HCO3 ABG Total CO2 ABG O2 Saturation ABG Base Excess FiO2 Sodium Potassium Chloride Carbon Dioxide BUN Creatinine Estimated GFR BUN/Creatinine Ratio Glucose Lactate 2.2 H 2.2 H Calcium Magnesium Total Bilirubin AST ALT Alkaline Phosphatase Total Creatine Kinase CK-MB (CK-2) CK-MB (CK-2) Rel Index Troponin I NT-Pro-B Natriuret Pep Total Protein Albumin Globulin Albumin/Globulin Ratio Lipase Procalcitonin Nasal Screen MRSA (PCR) Chlamy pneumoniae PCR Not detected Adenovirus (PCR) Not detected B. pertussis DNA (PCR) Not detected B.parapertussis DNA PCR Not detected Coronavirus OC43 (PCR) Not detected Coronavirus HKU1 (PCR) Not detected Coronavirus 229E (PCR) Not detected SARS-CoV-2 (PCR) Not detected Coronavirus NL63 (PCR) Not detected Human Metapneumovir PCR Detected H Influenza Type A (PCR) Not detected Influenza Type B (PCR) Not detected M. pneumoniae (PCR) Not detected Parainfluenza 1 (PCR) Not detected Parainfluenza 2 (PCR) Not detected Parainfluenza 3 (PCR) Not detected Parainfluenza 4 (PCR) Not detected RSV (PCR) Not detected Entero/Rhino (PCR) Not detected 07/16/22 07/16/22 07/17/22 17:25 21:32 04:39 WBC 17.1 H RBC 4.92 Hgb 15.2 Hct 46.5 H MCV 94.5 MCH 30.9 MCHC 32.7 RDW 13.9 Plt Count 264 Neut % (Auto) 91.6 H Lymph % (Auto) 3.7 L [place] % (Auto) 4.6 Eos % (Auto) 0.0 L Baso % (Auto) 0.1 Neut # (Auto) 58424 H Lymph # (Auto) 600 L [place] # (Auto) 800 Eos # (Auto) 0 Baso # (Auto) 0 ABG pH ABG pCO2 ABG pO2 ABG HCO3 ABG Total CO2 ABG O2 Saturation ABG Base Excess FiO2 Sodium Potassium Chloride Carbon Dioxide BUN Creatinine Estimated GFR BUN/Creatinine Ratio Glucose 502 H* D Lactate Calcium Magnesium Total Bilirubin AST ALT Alkaline Phosphatase Total Creatine Kinase CK-MB (CK-2) CK-MB (CK-2) Rel Index Troponin I NT-Pro-B Natriuret Pep Total Protein Albumin Globulin Albumin/Globulin Ratio Lipase Procalcitonin Nasal Screen MRSA (PCR) Not detected Chlamy pneumoniae PCR Adenovirus (PCR) B. pertussis DNA (PCR) B.parapertussis DNA PCR Coronavirus OC43 (PCR) Coronavirus HKU1 (PCR) Coronavirus 229E (PCR) SARS-CoV-2 (PCR) Coronavirus NL63 (PCR) Human Metapneumovir PCR Influenza Type A (PCR) Influenza Type B (PCR) M. pneumoniae (PCR) Parainfluenza 1 (PCR) Parainfluenza 2 (PCR) Parainfluenza 3 (PCR) Parainfluenza 4 (PCR) RSV (PCR) Entero/Rhino (PCR) 07/17/22 04:39 WBC RBC Hgb Hct MCV MCH MCHC RDW Plt Count Neut % (Auto) Lymph % (Auto) [place] % (Auto) Eos % (Auto) Baso % (Auto) Neut # (Auto) Lymph # (Auto) [place] # (Auto) Eos # (Auto) Baso # (Auto) ABG pH ABG pCO2 ABG pO2 ABG HCO3 ABG Total CO2 ABG O2 Saturation ABG Base Excess FiO2 Sodium 137 Potassium 4.2 Chloride 90 L Carbon Dioxide 39 H BUN 42 H Creatinine 1.27 H Estimated GFR 49 L BUN/Creatinine Ratio 33.1 H Glucose 290 H D Lactate Calcium 8.7 Magnesium 2.3 Total Bilirubin AST ALT Alkaline Phosphatase Total Creatine Kinase CK-MB (CK-2) CK-MB (CK-2) Rel Index Troponin I NT-Pro-B Natriuret Pep Total Protein Albumin Globulin Albumin/Globulin Ratio Lipase Procalcitonin Nasal Screen MRSA (PCR) Chlamy pneumoniae PCR Adenovirus (PCR) B. pertussis DNA (PCR) B.parapertussis DNA PCR Coronavirus OC43 (PCR) Coronavirus HKU1 (PCR) Coronavirus 229E (PCR) SARS-CoV-2 (PCR) Coronavirus NL63 (PCR) Human Metapneumovir PCR Influenza Type A (PCR) Influenza Type B (PCR) M. pneumoniae (PCR) Parainfluenza 1 (PCR) Parainfluenza 2 (PCR) Parainfluenza 3 (PCR) Parainfluenza 4 (PCR) RSV (PCR) Entero/Rhino (PCR) [facility] Medical History COPD (chronic obstructive pulmonary disease) Social History household members: spouse lives independently: Yes Smoking Status: Current every day smoker Assessment & Plan Assessment & Plan narrative: 1. Acute on chronic hypoxic and hypercarbic respiratory failure, improving Patient presents after leaving outside hospital Against Medical Advice after a 5 day hospital stay. While there, she received diuresis, fluid restriction, IV steroids, and respiratory treatments. Upon arriving to our emergency department, she was hypoxic with room air saturations of 70%, tachypneic, and noting severe respiratory distress. Chest x-ray reveals evidence of congestive heart failure. Exam also indicates a component of COPD exacerbation likely exacerbated by metapneumovirus. Received furosemide 40 mg IV b.i.d. and Solu- Medrol 80 mg IV q.12. Initially required bipap but now on 3L NC. Lasix and diamox stopped on 06/19 due to uptrending Cr. 2. Acute on chronic systolic congestive heart failure exacerbation Congestive heart failure noted on chest x-ray as well as on previous imaging done at the outside hospital. No echocardiogram available in records to denote the severity of her congestive heart failure. Will obtain an echocardiogram. Diuresed to euvolemia. F/u echo read and hold more lasix for now. Restarted home metoprolol and aldactone. 3. COPD exacerbation, likely secondary to metapneumovirus infection Continue her outpatient respiratory medications. As noted, continue IV Solu- Medrol 80 mg q.12. Will start budesonide as well. Duo nebs 4 times daily scheduled 4. Metapneumovirus infection She tested positive both at the outside hospital and on today's labs. She is af ebrile. She does have a leukocytosis but this is likely steroid induced rather than related to an infection as she was afebrile and not complaining of URI symptoms for the duration of her hospitalization at the outside hospital. 5. Coronary artery disease with prior [place] Troponin here is negative. On eliquis. 6. History of cardiac arrest, status post pacemaker/AICD placement Per outside records, she reports receiving a shock a couple of times a year. I am uncertain when she last had her device interrogated. 7. Atrial fibrillation on chronic anticoagulation with Eliquis No RVR at this time. Regular on exam. Restarted home amio and eliquis. 8. Diabetes mellitus type 2 On oral medications only per report. A1c at the outside facility was reported to be 8%. Will place on fingersticks and sliding scale. Added lantus 25 units daily due to elevated sugars. 9. Class 3 obesity with BMI of 42.2 Her obesity puts her at significant risk of morbidity and mortality. Would greatly benefit from weight reduction. 10. Reported CKD stage 3 As noted, outside documentation shows history of CKD 3. However here her GFR and creatinine are normal. Will monitor. 11. Chronic pain syndrome uncertain if she takes chronic opioid medication at baseline. She is not presently complaining of any pain. Would avoid opioids for now given her BiPAP dependence, as I suspect she also has a component of obesity hypoventilation syndrome. 12. Hypertension Blood pressures are normotensive here. Holding home lisinopril due to uptrending Cr. 13. Hyperlipidemia Not on statin. Code status Full Prophylaxis Eliquis Disposition Downgraded from ICU 07/17. Likely 2-3 more days. Time Spent With Patient Critical Care time: I spent a total of [] minutes of critical care time on this patient's care today; this time is exclusive of procedural time.
[2022-07-17] MEDS: ENOXAPARIN 40 MG/0.4 ML SYRINGE SUBCUT (09:21)
[2022-07-17] MEDS: DOXYCYCLINE HYCLATE 100 MG TABLET PO ×2 (09:21→21:03)
[2022-07-17] MEDS: INSULIN GLARGINE 100 UNIT/ML 3ML PEN 25 UNIT SUBCUT (09:22)
--- NOTE | 2022-07-17 10:09 | PM.PN.EICU ---
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 Has since been on 4 L NC with sats between 88-94%. Has diuresed >1 L Cr bump this am Med rec in process: eliquis and amiodarone to be restarted Current Medications Current Medications Medications: Home Medications albuterol sulfate 90 mcg/actuation aerosol inhaler (Ventolin HFA) 2 puff inhalation QID PRN Shortness Of Breath 07/17/22 [History Confirmed 07/17/22] amiodarone 200 mg tablet 100 mg PO DAILY 07/17/22 [History Confirmed 07/17/22] apixaban 5 mg tablet (Eliquis) 5 mg PO BID 07/17/22 [History Confirmed 07/17/22] budesonide 90 mcg/actuation breath activated powder inhaler 2 inh inhalation BID 07/17/22 [History Confirmed 07/17/22] furosemide 40 mg tablet 40 mg PO BID 07/17/22 [History Confirmed 07/17/22] hydrocodone 5 mg-acetaminophen 325 mg tablet 1 tab PO Q6H PRN Pain (Scale Score 4-6) 07/17/22 [History Confirmed 07/17/22] lisinopril 5 mg tablet 5 mg PO DAILY 07/17/22 [History Confirmed 07/17/22] metoprolol succinate 100 mg tablet,extended release 24 hr 100 mg PO BID 07/17/22 [History Confirmed 07/17/22] montelukast 10 mg tablet 10 mg PO DAILY 07/17/22 [History Confirmed 07/17/22] prednisone 5 mg tablet 5 mg PO DAILY 07/17/22 [History Confirmed 07/17/22] spironolactone 25 mg tablet 25 mg PO DAILY 07/17/22 [History Confirmed 07/17/22] Visit Medications (administered) Generic Name Dose Route Start Last Admin Trade Name Freq PRN Reason Stop Dose Admin Acetaminophen 650 mg 07/17/22 01:53 07/17/22 02:00 Acetaminophen 325 Mg Tablet PO 650 mg Q6H PRN Administration Fever/Mild Pain (1-3) Albuterol 2.5 mg 07/16/22 14:57 07/16/22 20:08 Albuterol 2.5 Mg/3 Ml Neb (Adult) INH 2.5 mg [id number] PRN Administration Shortness Of Breath Albuterol/Ipratropium 3 ml 07/16/22 15:00 07/17/22 05:52 Albuterol/Ipratropium 3 Ml Ampul INH 3 ml [id number] BRANDON Administration Budesonide 0.5 mg 07/16/22 20:00 07/16/22 20:08 Budesonide 0.5 Mg/2 Ml Neb INH 0.5 mg RTBID BRANDON Administration Diphenhydramine HCl 50 mg 07/16/22 20:03 07/16/22 20:14 Diphenhydramine 25 Mg Tablet PO 50 mg Q6HR PRN Administration Itching Doxycycline Hyclate 100 mg 07/16/22 21:00 07/17/22 09:21 Doxycycline Hyclate 100 Mg Tablet PO 100 mg BID BRANDON Administration Enoxaparin Sodium 40 mg 07/17/22 09:00 07/17/22 09:21 Enoxaparin 40 Mg/0.4 Ml Syringe SUBCUT 40 mg BID BRANDON Administration Insulin Glargine 25 unit 07/17/22 09:15 07/17/22 09:22 Insulin Glargine 100 Unit/Ml 3ml Pen SUBCUT 25 unit DAILY BRANDON Administration Methylprednisolone 80 mg 07/16/22 13:53 07/17/22 01:54 Methylprednisolone 125 Mg/2 Ml Vial IV 80 mg Q12H BRANDON Administration Ondansetron HCl 4 mg 07/16/22 20:03 07/16/22 20:14 Ondansetron 4 Mg/2 Ml Inj IV 4 mg Q4HR PRN Administration Nausea And Vomiting Oxycodone HCl 5 mg 07/17/22 01:53 07/17/22 06:14 Oxycodone Ir 5 Mg Tablet PO 5 mg Q4HR PRN Administration Pain, Moderate (4-10) Objective Labs 07/17/22 04:39 07/17/22 04:39 Labs: Laboratory Results - last 24 hr 07/16/22 07/16/22 07/16/22 01:38 12:06 12:06 WBC 20.6 H RBC 5.11 Hgb 15.8 Hct 48.5 H MCV 94.8 MCH 30.9 MCHC 32.6 RDW 14.0 Plt Count 320 Neut % (Auto) 87.9 H Lymph % (Auto) 5.0 L [place] % (Auto) 7.0 Eos % (Auto) 0.0 L Baso % (Auto) 0.1 Neut # (Auto) 19139 H Lymph # (Auto) 1000 L [place] # (Auto) 1400 H Eos # (Auto) 0 Baso # (Auto) 0 ABG pH 7.45 ABG pCO2 69.4 H* ABG pO2 50 L ABG HCO3 48 H ABG Total CO2 50 H ABG O2 Saturation 84 L* ABG Base Excess 24.0 H FiO2 40 Sodium 136 L Potassium 4.1 Chloride 90 L Carbon Dioxide 38 H BUN 41 H Creatinine 0.80 Estimated GFR > 60 BUN/Creatinine Ratio 51.3 H Glucose 248 H Lactate Calcium 9.5 Magnesium Total Bilirubin 0.7 AST 31 ALT 74 H Alkaline Phosphatase 83 Total Creatine Kinase 36 CK-MB (CK-2) TNP CK-MB (CK-2) Rel Index TNP Troponin I < 0.012 NT-Pro-B Natriuret Pep 2860 H Total Protein 7.0 Albumin 3.8 Globulin 3.2 Albumin/Globulin Ratio 1.2 Lipase 43 Procalcitonin 0.06 Nasal Screen MRSA (PCR) Chlamy pneumoniae PCR Adenovirus (PCR) B. pertussis DNA (PCR) B.parapertussis DNA PCR Coronavirus OC43 (PCR) Coronavirus HKU1 (PCR) Coronavirus 229E (PCR) SARS-CoV-2 (PCR) Coronavirus NL63 (PCR) Human Metapneumovir PCR Influenza Type A (PCR) Influenza Type B (PCR) M. pneumoniae (PCR) Parainfluenza 1 (PCR) Parainfluenza 2 (PCR) Parainfluenza 3 (PCR) Parainfluenza 4 (PCR) RSV (PCR) Entero/Rhino (PCR) 07/16/22 07/16/22 07/16/22 12:06 13:06 13:30 WBC RBC Hgb Hct MCV MCH MCHC RDW Plt Count Neut % (Auto) Lymph % (Auto) [place] % (Auto) Eos % (Auto) Baso % (Auto) Neut # (Auto) Lymph # (Auto) [place] # (Auto) Eos # (Auto) Baso # (Auto) ABG pH ABG pCO2 ABG pO2 ABG HCO3 ABG Total CO2 ABG O2 Saturation ABG Base Excess FiO2 Sodium Potassium Chloride Carbon Dioxide BUN Creatinine Estimated GFR BUN/Creatinine Ratio Glucose Lactate 2.2 H 2.2 H Calcium Magnesium Total Bilirubin AST ALT Alkaline Phosphatase Total Creatine Kinase CK-MB (CK-2) CK-MB (CK-2) Rel Index Troponin I NT-Pro-B Natriuret Pep Total Protein Albumin Globulin Albumin/Globulin Ratio Lipase Procalcitonin Nasal Screen MRSA (PCR) Chlamy pneumoniae PCR Not detected Adenovirus (PCR) Not detected B. pertussis DNA (PCR) Not detected B.parapertussis DNA PCR Not detected Coronavirus OC43 (PCR) Not detected Coronavirus HKU1 (PCR) Not detected Coronavirus 229E (PCR) Not detected SARS-CoV-2 (PCR) Not detected Coronavirus NL63 (PCR) Not detected Human Metapneumovir PCR Detected H Influenza Type A (PCR) Not detected Influenza Type B (PCR) Not detected M. pneumoniae (PCR) Not detected Parainfluenza 1 (PCR) Not detected Parainfluenza 2 (PCR) Not detected Parainfluenza 3 (PCR) Not detected Parainfluenza 4 (PCR) Not detected RSV (PCR) Not detected Entero/Rhino (PCR) Not detected 07/16/22 07/16/22 07/17/22 17:25 21:32 04:39 WBC 17.1 H RBC 4.92 Hgb 15.2 Hct 46.5 H MCV 94.5 MCH 30.9 MCHC 32.7 RDW 13.9 Plt Count 264 Neut % (Auto) 91.6 H Lymph % (Auto) 3.7 L [place] % (Auto) 4.6 Eos % (Auto) 0.0 L Baso % (Auto) 0.1 Neut # (Auto) 62494 H Lymph # (Auto) 600 L [place] # (Auto) 800 Eos # (Auto) 0 Baso # (Auto) 0 ABG pH ABG pCO2 ABG pO2 ABG HCO3 ABG Total CO2 ABG O2 Saturation ABG Base Excess FiO2 Sodium Potassium Chloride Carbon Dioxide BUN Creatinine Estimated GFR BUN/Creatinine Ratio Glucose 502 H* D Lactate Calcium Magnesium Total Bilirubin AST ALT Alkaline Phosphatase Total Creatine Kinase CK-MB (CK-2) CK-MB (CK-2) Rel Index Troponin I NT-Pro-B Natriuret Pep Total Protein Albumin Globulin Albumin/Globulin Ratio Lipase Procalcitonin Nasal Screen MRSA (PCR) Not detected Chlamy pneumoniae PCR Adenovirus (PCR) B. pertussis DNA (PCR) B.parapertussis DNA PCR Coronavirus OC43 (PCR) Coronavirus HKU1 (PCR) Coronavirus 229E (PCR) SARS-CoV-2 (PCR) Coronavirus NL63 (PCR) Human Metapneumovir PCR Influenza Type A (PCR) Influenza Type B (PCR) M. pneumoniae (PCR) Parainfluenza 1 (PCR) Parainfluenza 2 (PCR) Parainfluenza 3 (PCR) Parainfluenza 4 (PCR) RSV (PCR) Entero/Rhino (PCR) 07/17/22 04:39 WBC RBC Hgb Hct MCV MCH MCHC RDW Plt Count Neut % (Auto) Lymph % (Auto) [place] % (Auto) Eos % (Auto) Baso % (Auto) Neut # (Auto) Lymph # (Auto) [place] # (Auto) Eos # (Auto) Baso # (Auto) ABG pH ABG pCO2 ABG pO2 ABG HCO3 ABG Total CO2 ABG O2 Saturation ABG Base Excess FiO2 Sodium 137 Potassium 4.2 Chloride 90 L Carbon Dioxide 39 H BUN 42 H Creatinine 1.27 H Estimated GFR 49 L BUN/Creatinine Ratio 33.1 H Glucose 290 H D Lactate Calcium 8.7 Magnesium 2.3 Total Bilirubin AST ALT Alkaline Phosphatase Total Creatine Kinase CK-MB (CK-2) CK-MB (CK-2) Rel Index Troponin I NT-Pro-B Natriuret Pep Total Protein Albumin Globulin Albumin/Globulin Ratio Lipase Procalcitonin Nasal Screen MRSA (PCR) Chlamy pneumoniae PCR Adenovirus (PCR) B. pertussis DNA (PCR) B.parapertussis DNA PCR Coronavirus OC43 (PCR) Coronavirus HKU1 (PCR) Coronavirus 229E (PCR) SARS-CoV-2 (PCR) Coronavirus NL63 (PCR) Human Metapneumovir PCR Influenza Type A (PCR) Influenza Type B (PCR) M. pneumoniae (PCR) Parainfluenza 1 (PCR) Parainfluenza 2 (PCR) Parainfluenza 3 (PCR) Parainfluenza 4 (PCR) RSV (PCR) Entero/Rhino (PCR) Exam Vital Signs (past 8 hours): - 07/17/22 02:13 07/17/22 02:31 07/17/22 02:31 Temperature Pulse Rate 60 62 Respiratory Rate 25 H 26 H Blood Pressure 121/77 Pulse Oximetry 95 95 Oxygen Delivery Method Oxygen Flow Rate 4 4 4 07/17/22 03:00 07/17/22 03:00 07/17/22 03:05 Temperature Pulse Rate 60 60 Respiratory Rate 31 H 28 H Blood Pressure 125/60 Pulse Oximetry 90 L 95 Oxygen Delivery Method Oxygen Flow Rate 4 4 4 07/17/22 04:00 07/17/22 03:30 07/17/22 03:30 Temperature Pulse Rate 60 Respiratory Rate 25 H Blood Pressure 136/63 Pulse Oximetry 95 Oxygen Delivery Method High Flow Nasal Cannula Oxygen Flow Rate 4 4 07/17/22 04:00 07/17/22 04:00 07/17/22 04:28 Temperature 97.0 F L Pulse Rate 60 60 Respiratory Rate 24 30 H Blood Pressure 145/67 H Pulse Oximetry 95 94 Oxygen Delivery Method Oxygen Flow Rate 4 4 4 07/17/22 04:30 07/17/22 04:30 07/17/22 05:01 Temperature Pulse Rate 60 60 Respiratory Rate 27 H 24 Blood Pressure 151/66 H Pulse Oximetry 94 96 Oxygen Delivery Method Oxygen Flow Rate 4 4 4 07/17/22 05:01 07/17/22 05:03 07/17/22 05:31 Temperature Pulse Rate 60 60 Respiratory Rate 28 H 26 H Blood Pressure 135/62 Pulse Oximetry 96 95 Oxygen Delivery Method Oxygen Flow Rate 4 4 4 07/17/22 05:31 07/17/22 06:01 07/17/22 06:01 Temperature Pulse Rate 60 Respiratory Rate 33 H Blood Pressure 132/60 133/60 Pulse Oximetry 90 L Oxygen Delivery Method Oxygen Flow Rate 4 4 4 07/17/22 06:31 07/17/22 06:31 07/17/22 06:54 Temperature Pulse Rate 60 60 Respiratory Rate 26 H 34 H Blood Pressure 123/56 L Pulse Oximetry 92 94 Oxygen Delivery Method Oxygen Flow Rate 4 4 4 07/17/22 07:00 07/17/22 07:00 07/17/22 07:30 Temperature Pulse Rate 60 60 Respiratory Rate 32 H 22 Blood Pressure 110/54 L Pulse Oximetry 92 93 Oxygen Delivery Method Oxygen Flow Rate 07/17/22 07:31 07/17/22 07:31 07/17/22 08:00 Temperature 97.7 F Pulse Rate 60 60 Respiratory Rate 24 22 Blood Pressure 103/62 Pulse Oximetry 92 92 Oxygen Delivery Method Oxygen Flow Rate 07/17/22 08:01 07/17/22 08:01 07/17/22 08:30 Temperature Pulse Rate 60 68 Respiratory Rate 24 26 H Blood Pressure 122/57 L Pulse Oximetry 92 90 L Oxygen Delivery Method Oxygen Flow Rate 07/17/22 08:31 07/17/22 08:31 07/17/22 09:00 Temperature Pulse Rate 61 64 Respiratory Rate 27 H 31 H Blood Pressure 128/56 L Pulse Oximetry 91 90 L Oxygen Delivery Method Oxygen Flow Rate 07/17/22 09:01 07/17/22 09:01 07/17/22 09:30 Temperature Pulse Rate 61 64 Respiratory Rate 32 H 33 H Blood Pressure 119/53 L Pulse Oximetry 90 L 90 L Oxygen Delivery Method Oxygen Flow Rate 07/17/22 09:31 07/17/22 09:31 Temperature Pulse Rate 68 Respiratory Rate 33 H Blood Pressure 96/53 L Pulse Oximetry 90 L Oxygen Delivery Method Oxygen Flow Rate Fraction of Inspired Oxygen 36 SaO2/FiO2 Ratio 250 Oxygen Delivery Method High Flow Nasal Cannula Oxygen Flow Rate 4 Narrative Exam Narrative: No acute distress Wearing NC Resp Effort & Inspection: normal respiratory effort Neuro General: patient alert and patient oriented x3 Assessment & Plan Assessment and plan (1) Human metapneumovirus (hMPV) pneumonia: Status: Acute (2) CHF exacerbation: Status: Acute (3) Acute metabolic encephalopathy: Status: Acute Plan: mental status improved (4) Acute hypoxemic respiratory failure: Status: Acute (5) Acute exacerbation of chronic obstructive airways disease: Status: Acute Assessment & Plan narrative: Acute respiratory failure, hypoxemia resolving: likely multifactorial, + human metapneumovirus PNA, plus CHF, underlying COPD Has been weaned off of bipap, on 4 L NC with last sat 95%. Home O2 requirement is 2-3 L O2 Cr elevated this am after diuresis. Would aim for even fluid balance today Echo pending Continue doxycycline, steroid taper, nebs Continue home medications for htn/chf Restarted home eliquis/amiodarone Can likely downgrade from ICU today Time Spent With Patient Critical Care time: I spent a total of [33] minutes of critical care time on this patient's care today; this time is exclusive of procedural time.
--- NOTE | 2022-07-17 11:45 | OT.IPNOTE ---
Per nursing pt on BiPap and to hold for therapy eval at this time.
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
[2022-07-17] MEDS: INSULIN LISPRO 100 UNIT/ML 3ML VIAL SUBCUT ×3 (12:45→21:03)
[2022-07-17] MEDS: AMIODARONE 200 MG TABLET 100 MG PO (12:45)
[2022-07-17] MEDS: SPIRONOLACTONE 25 MG TABLET PO (12:46)
[2022-07-17] MEDS: MONTELUKAST 10 MG TABLET PO (12:46)
--- NOTE | 2022-07-17 14:10 | PT-IP ANOTE ---
Discussed pt with nursing who advised to hold PT evaluation today due to respiratory status. Will follow up for appropriateness of therapy intervention.
[2022-07-17] MEDS: ONDANSETRON 4 MG/2 ML INJ IV (17:38)
[2022-07-17] MEDS: BUDESONIDE 0.5 MG/2 ML NEB INH (19:16)
[2022-07-17] MEDS: APIXABAN 5 MG TABLET PO (21:02)
[2022-07-17] MEDS: METOPROLOL ER 50 MG TABLET 100 MG PO (21:02)
--- NOTE | 2022-07-17 21:55 | PC.NURSE ---
Patient medicated for pain with 2100 medications awaiting results. Pain slowly improving, only hurting now when coughing.
[2022-07-18] VITALS (12 sets, daily range): BP systolic 104–129; BP diastolic 44–67; PULSE 56–69; RESP 18–24; TEMP 35.9–37; O2SAT 93–97
--- NOTE | 2022-07-18 00:01 | PC.NURSE ---
Patient moved to acute care stable remains on 4L high flow nasal cannula at present time. No respiratory distress noted.
[2022-07-18] MEDS: methylPREDNISolone 125 MG/2 ML VIAL 80 MG IV (01:26)
[2022-07-18] MEDS: ALBUTEROL 2.5 MG/3 ML NEB (ADULT) INH (02:41)
[2022-07-18] MEDS: OXYCODONE IR 5 MG TABLET PO ×2 (03:14→09:06)
[2022-07-18] MEDS: ACETAMINOPHEN 325 MG TABLET 650 MG PO (03:14)
[2022-07-18 06:18] LABS: Basophils Absolute Auto 100 /uL (0-100); Basophils Percent Auto 0.3 % (0-2); Eosinophils Absolute Auto 0 /uL (0-450); Hematocrit 47.3 % (36-46); Hemoglobin 15.6 g/dL (12.0-16.0); Lymphocytes Absolute Auto 500 /uL (1100-4500); Mean Corpuscular Hemoglobin 30.9 PG (26-34); Mean Corpuscular Volume 93.7 fL (80-100); Monocytes Absolute Auto 400 /uL (0-900); Monocytes Percent Auto 2.1 % (3-14); Neutrophils Absolute Auto 17600 /uL (1500-7000); Neutrophils Percent Auto 94.6 % (50-75); Platelet Count 244 X10^3/uL (150-400); Red Blood Cell Count 5.05 X10^6/uL (4.0-5.2); Red Cell Distribution Width 13.8 % (11.6-14.8); White Blood Cell Count 18.6 X10^3/uL (4.5-11.0)
[2022-07-18 06:24] LABS: Add Manual Diff / Slide Review SLIDE REVIEW; BUN Creatinine Ratio 34.2 (6-22); Blood Urea Nitrogen 39 mg/dL (7-17); Calcium 8.9 mg/dL (8.4-10.2); Carbon Dioxide 39 mmol/L (22-32); Chloride 92 mmol/L (98-107); Estimated Glomerular Filt Rate 55 mL/min (>60); Glucose 214 mg/dL (70-100); HEMOLYSIS < 15 (0-50); Potassium 4.8 mmol/L (3.4-5.1); Sodium 133 mmol/L (137-145)
[2022-07-18 06:50] LABS: RBC Morphology Normal Morphology
--- NOTE | 2022-07-18 07:52 | CM.DPC ---
DCP Cont: Received a voice mail from [facility], that patient is currently not on KARTIK. Patient would have to re apply with [facility]. P: DCP to continue to follow. Can bring this up with patient and see if she would like another application sent. Notes indicate that patient does not want senior living, but [facility] has been ordered. Mila Medel RN/Gas Turbine Mechanic
--- NOTE | 2022-07-18 08:06 | P.PN_ITS ---
Subjective Subjective Interval history: Patient's breathing somewhat better, but had a coughing fit this morning which scared her. She is now on 3L NC which is her baseline. Exam Vital Signs (past 8 hours): - 07/18/22 00:35 07/18/22 02:41 07/18/22 03:40 Temperature 98.6 F 97.0 F L Pulse Rate 56 L 60 64 Respiratory Rate 18 24 18 Blood Pressure 123/51 L 118/67 Pulse Oximetry 96 95 93 Oxygen Delivery Method Nasal Cannula Oxygen Flow Rate 4 4 Fraction of Inspired Oxygen 36 Fraction of Inspired Oxygen 36 SaO2/FiO2 Ratio 263 Oxygen Delivery Method Nasal Cannula Oxygen Flow Rate 4 Narrative Exam Narrative: GEN: Acutely and chronically ill-appearing middle-aged female, drowsy but responsive, appears to be oriented to self and situation, no acute distress HEENT: Normocephalic, face symmetric, pupils equal round reactive to light, extraocular movements intact, sclerae anicteric, conjunctiva clear, oropharyngeal exam can not be performed secondary to having BiPAP in place NECK: Supple, no lymphadenopathy, can not palpate any thyroid nodularity, carotid arteries can not be heard over the BiPAP and respiratory noises CHEST: Respiratory excursions symmetric, diffuse wheezes and coarse breath sounds CV: Regular rate and rhythm, no murmurs, rubs, gallops, PMI can not be palpated ABD: Firm, obese, nontender, nondistended, bowel sounds present in all 4 quadrants, body habitus limits exam EXTR: Warm, well perfused, no clubbing/cyanosis/edema SKIN: Warm and dry, without rash NEURO: Drowsy, follows simple commands, ears grossly intact PSYCH: Mood, affect, judgment, and insight can not be assessed Objective Labs 07/18/22 06:00 07/18/22 06:00 Labs: Laboratory Results - last 24 hr 07/18/22 07/18/22 06:00 06:00 WBC 18.6 H RBC 5.05 Hgb 15.6 Hct 47.3 H MCV 93.7 MCH 30.9 MCHC 33.0 RDW 13.8 Plt Count 244 Neut % (Auto) 94.6 H Lymph % (Auto) 3.0 L [place] % (Auto) 2.1 L Eos % (Auto) 0.0 L Baso % (Auto) 0.3 Neut # (Auto) 64453 H Lymph # (Auto) 500 L [place] # (Auto) 400 Eos # (Auto) 0 Baso # (Auto) 100 RBC Morphology Normal morphology Sodium 133 L Potassium 4.8 Chloride 92 L Carbon Dioxide 39 H BUN 39 H Creatinine 1.14 H Estimated GFR 55 L BUN/Creatinine Ratio 34.2 H Glucose 214 H Calcium 8.9 PFSH Medical History COPD (chronic obstructive pulmonary disease) Social History household members: spouse lives independently: Yes Smoking Status: Current every day smoker Assessment & Plan Assessment & Plan narrative: 1. Acute on chronic hypoxic and hypercarbic respiratory failure, improving Patient presents after leaving outside hospital Against Medical Advice after a 5 day hospital stay. While there, she received diuresis, fluid restriction, IV steroids, and respiratory treatments. Upon arriving to our emergency department, she was hypoxic with room air saturations of 70%, tachypneic, and noting severe respiratory distress. Chest x-ray reveals evidence of congestive heart failure. Exam also indicates a component of COPD exacerbation likely exacerbated by metapneumovirus. Received furosemide 40 mg IV b.i.d. and Solu- Medrol 80 mg IV q.12. Initially required bipap but now on 3L NC. Lasix and diamox stopped on 06/19 due to uptrending Cr. 2. Acute on chronic systolic congestive heart failure exacerbation Congestive heart failure noted on chest x-ray as well as on previous imaging done at the outside hospital. No echocardiogram available in records to denote the severity of her congestive heart failure. Will obtain an echocardiogram. Diuresed to euvolemia. Echo 07/17 with EF 25-30% withi severe global hypokinesis of LV and inferior, posterolateral wall. Restarted home metoprolol and aldactone. 3. COPD exacerbation, likely secondary to metapneumovirus infection Continue her outpatient respiratory medications. Received IV Solu-Medrol 80 mg q.12. Will start budesonide with Duo nebs 4 times daily scheduled. Now on po prednisone 40mg daily to finish 5 days. 4. Metapneumovirus infection She tested positive both at the outside hospital and on admission here. She is afebrile. She does have a leukocytosis but this is likely steroid induced rather than related to an infection as she was afebrile and not complaining of URI symptoms for the duration of her hospitalization at the outside hospital. Continue supportive care. Mucinex and tessalon perles ordered. 5. Coronary artery disease with prior [place] Troponin here is negative. On eliquis. 6. History of cardiac arrest, status post pacemaker/AICD placement Per outside records, she reports receiving a shock a couple of times a year. I am uncertain when she last had her device interrogated. 7. Atrial fibrillation on chronic anticoagulation with Eliquis No RVR at this time. Regular on exam. Restarted home amio and eliquis. 8. Diabetes mellitus type 2 On oral medications only per report. A1c at the outside facility was reported to be 8%. Will place on fingersticks and sliding scale. Added lantus 30 units daily due to elevated sugars. 9. Class 3 obesity with BMI of 42.2 Her obesity puts her at significant risk of morbidity and mortality. Would greatly benefit from weight reduction. 10. Reported CKD stage 3 As noted, outside documentation shows history of CKD 3. However here her GFR and creatinine are normal. Will monitor. 11. Chronic pain syndrome uncertain if she takes chronic opioid medication at baseline. She is not presently complaining of any pain. Would avoid opioids for now given her BiPAP dependence, as I suspect she also has a component of obesity hypoventilation syndrome. 12. Hypertension Blood pressures are normotensive here. Holding home lisinopril due to uptrending Cr. 13. Hyperlipidemia Not on statin. Code status Full Prophylaxis Eliquis Disposition Likely home with in 2-3 more days. Time Spent With Patient Critical Care time: I spent a total of [] minutes of critical care time on this patient's care today; this time is exclusive of procedural time.
--- NOTE | 2022-07-18 08:46 | PT-IP ANOTE ---
Pt vomiting this morning and not ready for physical therapy evaluation. Will check back later.
[2022-07-18] MEDS: predniSONE 20 MG TABLET 40 MG PO (09:07)
[2022-07-18] MEDS: MONTELUKAST 10 MG TABLET PO (09:07)
[2022-07-18] MEDS: AMIODARONE 200 MG TABLET 100 MG PO (09:07)
[2022-07-18] MEDS: ONDANSETRON 4 MG/2 ML INJ IV ×3 (09:07→20:40)
[2022-07-18] MEDS: DOXYCYCLINE HYCLATE 100 MG TABLET PO (09:07)
[2022-07-18] MEDS: SPIRONOLACTONE 25 MG TABLET PO (09:07)
[2022-07-18] MEDS: guaiFENesin ER 600 MG TAB PO ×2 (09:08→20:44)
[2022-07-18] MEDS: APIXABAN 5 MG TABLET PO ×2 (09:08→20:43)
[2022-07-18] MEDS: METOPROLOL ER 50 MG TABLET 100 MG PO ×2 (09:08→20:46)
[2022-07-18] MEDS: INSULIN GLARGINE 100 UNIT/ML 3ML PEN 30 UNIT SUBCUT (09:11)
[2022-07-18] MEDS: INSULIN LISPRO 100 UNIT/ML 3ML VIAL SUBCUT ×4 (09:13→21:32)
[2022-07-18] MEDS: ALBUTEROL/IPRATROPIUM 3 ML AMPUL INH ×4 (09:16→19:31)
[2022-07-18] MEDS: BUDESONIDE 0.5 MG/2 ML NEB INH ×2 (09:16→19:31)
[2022-07-18] MEDS: SODIUM CHLORIDE 0.9% FLUSH 10 ML IV ×2 (09:16→13:58)
--- NOTE | 2022-07-18 11:38 | OT.IPNOTE ---
Pt just completed RT and having coughing fits but agreed to try OT eval after lunch as wanting to shower. To check on pt after lunch.
[2022-07-18] MEDS: BENZONATATE 100 MG CAPSULE PO (12:50)
--- NOTE | 2022-07-18 14:02 | OT.IP.EVAL ---
Current Diagnoses Metabolic encephalopathy (07/16/22) Heart failure, unspecified (07/16/22) Human metapneumovirus pneumonia (07/16/22) Chronic obstructive pulmonary disease with (acute) exacerbation (07/16/22) Acute respiratory failure with hypoxia (07/16/22) Acute and chronic respiratory failure with hypoxia (07/16/22) Past Medical History (Last Reviewed 07/16/22 @ 12:31 by Mynor Montano DO) COPD (chronic obstructive pulmonary disease) Occupational Therapy Inpatient Evaluation/Re-Eval M1 PT/OT-IP Prior Functional Status Start: 07/17/22 08:56 Freq: NEEDED Status: Active Protocol: Document 07/18/22 12:57 [facility] (Rec: 07/18/22 16:27 [facility] [id number]) Medical Review Prior Functional Status Mobility and Gait Pt uses a cane or mainly holds onto surfaces in the RV. Pt uses a 4ww outside. Activities of Daily Living and IADL's Pt able to do most of her ADL' s and has her daughter present for showering needs. Social History Household Members spouse Living Arrangements RV Number of Stairs To Enter/Railing? Pt has 4 broken steps and left rail to go up and 3 steps with shower on right side and left side toilet cabinet to hold to in order to get to the bedroom. Pt has one step to the kitchen. Home Environment Standard Height Toilet,Walk in Shower Home Equipment Four Wheel Walker,Straight Cane,Shower Seat without Backrest,Hand Held Shower Additional Social History Comment suction grab bar M2 OT-IP Current Condition Start: 07/18/22 16:02 Freq: Status: Active Protocol: Document 07/18/22 12:57 [facility] (Rec: 07/18/22 16:27 [facility] [id number]) Occupational Therapy Current Condition Current Condition Evaluation Date 07/18/22 Treatment Diagnosis Human Metapneumovirus, COPD exacerbation Diagnosis Onset Date 07/16/22 M3 OT- IP Subjective and Pain Start: 07/18/22 16:02 Freq: Status: Active Protocol: Document 07/18/22 12:57 [facility] (Rec: 07/18/22 16:27 [facility] [id number]) OT- Subjective Occupational Therapy Visit Type Type Initial Evaluation Visit Start Time 12:57 Visit Stop Time 14:02 Total Visit Minutes 65 Occupational Therapy Visit Comments Patient Comments Pt agreed to get up. Pt very tearful and hospitalist was in for part of the session. Patient/Caregiver Goals To go home. OT Pain Assessment Pain When Pain Assessed At Rest Pain Present Pain Present Pain Reported M4 OT- IP ADL's Start: 07/18/22 16:02 Freq: Status: Active Protocol: Document 07/18/22 12:57 [facility] (Rec: 07/18/22 16:27 [facility] [id number]) OT [id number] Comments OT Self-Feeding Comments Not at meal time, pt able to drink independently for water bottle. OT ADL-Grooming Comments OT Grooming Comments Pt able to wash her face after set-up. OT ADL-Oral Care General Eval Oral Care Ability Independent OT ADL-Dressing General Eval Lower Body Dressing Ability Independent Comments OT Dressing Comments Pt able to long sit up in the bed independently to olivia/doff her socks. OT ADL-Toileting Comments OT Toileting Comments pt not having to go but able to get up and down form the toilet with SBA. OT ADL-Bathing Comments OT Bathing Comments Pt too tired to shower at this time. M5 OT- IP IADL's Start: 07/18/22 16:02 Freq: Status: Active Protocol: Document 07/18/22 12:57 [facility] (Rec: 07/18/22 16:27 [facility] [id number]) OT-Instrumental Activities of Daily Living Deficits IADL Deficits Identified Deficits Home Safety Awareness Awareness of Need for Assistance at Home Good Awareness Ability to Problem Solve Emergency Able to Problem Solve Situations Medication Management Medication Management Comments Pt's states her grand daughter fruit picker machine operator her meds. Money Management Money Management Caregiver Provides Assistance Meal Preparation Meal Preparation Caregiver Provides Assist Garment Form Assembler Garment Form Assembler Caregiver Provides Assist M6 OT- IP Functional Cognition Start: 07/18/22 16:02 Freq: Status: Active Protocol: Document 07/18/22 12:57 [facility] (Rec: 07/18/22 16:27 [facility] [id number]) Cognitive Factors Limiting Selfcare Function Cognitive Ability Level of Alertness Alert Patient Orientation Name,Place,Situation Attention Span Ability Capable of Focused Attention, Capable of Sustained Attention Ability to Follow Commands Able to Follow Multi-Step Commands Cognitive Comments Cognitive Assessment Comments Pt able to follow commands for ADL and mobility needs and appears at baseline for cognitive needs. Pt's grand daughter assist wit medications and bills. OT- Vision and Hearing OT- Hearing Assessment OT- Hearing Assessment WFL OT- Vision Assessment Vision Assessment Comments Pt states can not afford glasses but able to read the clock appropriately. M7 OT- IP Mobility and Balance Start: 07/18/22 16:02 Freq: Status: Active Protocol: Document 07/18/22 12:57 [facility] (Rec: 07/18/22 16:27 [facility] [id number]) OT- Bed Mobility Assessment Rolling Level of Assistance Independent Supine to Sit Supine to Sit Assist Independent Sit to Supine Sit to Supine Assist Independent Scooting Scooting to Edge of Bed Independent OT-Transfer Assessment Sit to and From Stand Sit to and from Stand Standby Assistance Transfers Transfer Ability Standby Assistance Technique Transfer Destination Bed,Toilet Transfer Technique Stand Step Pivot Devices Transfer Assistive Devices Gait Belt,Front Wheeled Walker Comments Mobility Comments O2 on 3l and dropped to 86% after waling to the bathroom with FWW and able to quickly recover after 30 seconds to 93 %. OT- Balance Assessment Sitting Balance and Reactions Static Sitting Balance Ability Normal Dynamic Sitting Balance Ability Normal Standing Balance and Reactions Static Standing Balance Ability Good Dynamic Standing Balance Ability Good Comments Other Balance Tests/Deviations/Treatment Pt able to safely manage O2 : line while up walking with the FWW. M8 OT- IP Objective Assessments Start: 07/18/22 16:02 Freq: Status: Active Protocol: Document 07/18/22 12:57 [facility] (Rec: 07/18/22 16:27 [facility] [id number]) OT Gross Range of Motion Upper Extremity Range of Motion ROM Impairments Decreased at end ROM. OT Strength Comments Strength Comments From elbow to distal 4/5. OT- Coordination Assessment Upper Extremity Finger to Nose Test Within Functional Limits OT-Muscle Tone Assessment Muscle Tone WNL Yes M9 OT- IP Assessment and Plan Start: 07/18/22 16:02 Freq: Status: Active Protocol: Document 07/18/22 12:57 [facility] (Rec: 07/18/22 16:27 [facility] [id number]) OT Summary Assessment and Plan Potential Rehabilitation Potential Good Analytic Complexity at Evaluation Moderate Summary OT Impairments Pain,Balance,Functional Mobility,Bathing,Activity Tolerance Progress Towards Goals Progressing Toward Goals Assessment Summary Pt MOD complexity and main barrier are pain and decreased activity tolerance. Pt when medically stable to go home with assist. Goals Grooming Goal Independent Dressing Goal Independent Toileting Goal Independent Toilet Transfer Goal Standby Assistance Shower Transfer Goal Standby Assistance Patient/Caregiver Education Goal Demonstrate Energy Conservation and Pacing Days to Meet Goals 2 Frequency of Treatment Frequency Of Treatment Once a Day Treatment Plan OT Treatment Plan ADL Training,Functional Mobility,Patient/Family Education,Discharge Planning Other Treatment Recommendations and Next shower Treatment Focus Discharge Recommendations OT Discharge Recommendations Home with Assistance, home health Home Equipment Needs shower chair Transportation Needs at Discharge Private Vehicle
--- NOTE | 2022-07-18 14:02 | OT.IP.EVAL ---
Current Diagnoses Metabolic encephalopathy (07/16/22) Heart failure, unspecified (07/16/22) Human metapneumovirus pneumonia (07/16/22) Chronic obstructive pulmonary disease with (acute) exacerbation (07/16/22) Acute respiratory failure with hypoxia (07/16/22) Acute and chronic respiratory failure with hypoxia (07/16/22) Past Medical History (Last Reviewed 07/16/22 @ 12:31 by Mynor Montano DO) COPD (chronic obstructive pulmonary disease) Occupational Therapy Inpatient Evaluation/Re-Eval M1 PT/OT-IP Prior Functional Status Start: 07/17/22 08:56 Freq: NEEDED Status: Active Protocol: Document 07/18/22 16:20 [facility] (Rec: 07/18/22 16:46 [facility] [id number]) Medical Review Prior Functional Status Medical History Reviewed Yes Diet/Fluid Consistency Regular Communication WNL Mobility and Gait Independent in her RV without device or uses cane, sometimes she holds to furniture/jay, uses 4WW outside the home she uses 3 LPM oxygen at home Activities of Daily Living and IADL's Independent, Granddaughter present for showering Social History Household Members spouse Living Arrangements House Number of Floors (Floors) One Floor Number of Stairs To Enter/Railing? 5 steps to enter with rail, 2- 3 steps to bathroom, one step into living room Home Environment Standard Height Toilet,Walk in Shower Home Equipment Four Wheel Walker,Straight Cane Additional Social History Comment she reports her Spouse does not help much home oxygen at 3 LPM Pt's grand daughter comes to assist for the showers, get medications, shopping and IADL needs as needed. Pt's grand daughter in [place] and grand daughter's friend now helping the pt as needed. M2 OT-IP Current Condition Start: 07/18/22 16:02 Freq: Status: Active Protocol: Document 07/18/22 12:57 [facility] (Rec: 07/18/22 16:27 [facility] [id number]) Occupational Therapy Current Condition Current Condition Evaluation Date 07/18/22 Treatment Diagnosis Human Metapneumovirus, COPD exacerbation Diagnosis Onset Date 07/16/22 M3 OT- IP Subjective and Pain Start: 07/18/22 16:02 Freq: Status: Active Protocol: Document 07/18/22 12:57 [facility] (Rec: 07/18/22 16:27 [facility] [id number]) OT- Subjective Occupational Therapy Visit Type Type Initial Evaluation Visit Start Time 12:57 Visit Stop Time 14:02 Total Visit Minutes 65 Occupational Therapy Visit Comments Patient Comments Pt agreed to get up. Pt very tearful and hospitalist was in for part of the session. Patient/Caregiver Goals To go home. OT Pain Assessment Pain When Pain Assessed At Rest Pain Present Pain Present Pain Reported M4 OT- IP ADL's Start: 07/18/22 16:02 Freq: Status: Active Protocol: Document 07/18/22 12:57 [facility] (Rec: 07/18/22 16:27 [facility] [id number]) OT [id number] Comments OT Self-Feeding Comments Not at meal time, pt able to drink independently for water bottle. OT ADL-Grooming Comments OT Grooming Comments Pt able to wash her face after set-up. OT ADL-Oral Care General Eval Oral Care Ability Independent OT ADL-Dressing General Eval Lower Body Dressing Ability Independent Comments OT Dressing Comments Pt able to long sit up in the bed independently to olivia/doff her socks. OT ADL-Toileting Comments OT Toileting Comments pt not having to go but able to get up and down from the toilet with SBA. OT ADL-Bathing Comments OT Bathing Comments Pt too tired to shower at this time and has assist for showers due to her SOB. M5 OT- IP IADL's Start: 07/18/22 16:02 Freq: Status: Active Protocol: Document 07/18/22 12:57 [facility] (Rec: 07/18/22 16:27 [facility] [id number]) OT-Instrumental Activities of Daily Living Deficits IADL Deficits Identified Deficits Home Safety Awareness Awareness of Need for Assistance at Home Good Awareness Ability to Problem Solve Emergency Able to Problem Solve Situations Medication Management Medication Management Comments Pt's states her grand daughter pickle maker her meds. Money Management Money Management Caregiver Provides Assistance Meal Preparation Meal Preparation Caregiver Provides Assist Cotton Picker Cotton Picker Caregiver Provides Assist M6 OT- IP Functional Cognition Start: 07/18/22 16:02 Freq: Status: Active Protocol: Document 07/18/22 12:57 [facility] (Rec: 07/18/22 16:27 [facility] [id number]) Cognitive Factors Limiting Selfcare Function Cognitive Ability Level of Alertness Alert Patient Orientation Name,Place,Situation Attention Span Ability Capable of Focused Attention, Capable of Sustained Attention Ability to Follow Commands Able to Follow Multi-Step Commands Cognitive Comments Cognitive Assessment Comments Pt able to follow commands for ADL and mobility needs and appears at baseline for cognitive needs. Pt's grand daughter assist wit medications and bills. OT- Vision and Hearing OT- Hearing Assessment OT- Hearing Assessment WFL OT- Vision Assessment Vision Assessment Comments Pt states can not afford glasses but able to read the clock appropriately. M7 OT- IP Mobility and Balance Start: 07/18/22 16:02 Freq: Status: Active Protocol: Document 07/18/22 12:57 [facility] (Rec: 07/18/22 16:27 [facility] [id number]) OT- Bed Mobility Assessment Rolling Level of Assistance Independent Supine to Sit Supine to Sit Assist Independent Sit to Supine Sit to Supine Assist Independent Scooting Scooting to Edge of Bed Independent OT-Transfer Assessment Sit to and From Stand Sit to and from Stand Standby Assistance Transfers Transfer Ability Standby Assistance Technique Transfer Destination Bed,Toilet Transfer Technique Stand Step Pivot Devices Transfer Assistive Devices Gait Belt,Front Wheeled Walker Comments Mobility Comments O2 on 3l and dropped to 86% after walking to the bathroom with FWW and able to quickly recover after 30 seconds to 93 %. OT- Balance Assessment Sitting Balance and Reactions Static Sitting Balance Ability Normal Dynamic Sitting Balance Ability Normal Standing Balance and Reactions Static Standing Balance Ability Good Dynamic Standing Balance Ability Good Comments Other Balance Tests/Deviations/Treatment Pt able to safely manage O2 : line while up walking with the FWW. M8 OT- IP Objective Assessments Start: 07/18/22 16:02 Freq: Status: Active Protocol: Document 07/18/22 12:57 [facility] (Rec: 07/18/22 16:27 [facility] [id number]) OT Gross Range of Motion Upper Extremity Range of Motion ROM Impairments Decreased at end ROM. OT Strength Comments Strength Comments From elbow to distal 4/5. OT- Coordination Assessment Upper Extremity Finger to Nose Test Within Functional Limits OT-Muscle Tone Assessment Muscle Tone WNL Yes M9 OT- IP Assessment and Plan Start: 07/18/22 16:02 Freq: Status: Active Protocol: Document 07/18/22 12:57 [facility] (Rec: 07/18/22 16:27 [facility] [id number]) OT Summary Assessment and Plan Potential Rehabilitation Potential Good Analytic Complexity at Evaluation Moderate Summary OT Impairments Pain,Balance,Functional Mobility,Bathing,Activity Tolerance Progress Towards Goals Progressing Toward Goals Assessment Summary Pt MOD complexity and main barrier are pain and decreased activity tolerance. Pt when medically stable to go home with assist. Goals Grooming Goal Independent Dressing Goal Independent Toileting Goal Independent Toilet Transfer Goal Standby Assistance Shower Transfer Goal Standby Assistance Patient/Caregiver Education Goal Demonstrate Energy Conservation and Pacing Days to Meet Goals 2 Frequency of Treatment Frequency Of Treatment Once a Day Treatment Plan OT Treatment Plan ADL Training,Functional Mobility,Patient/Family Education,Discharge Planning Other Treatment Recommendations and Next Standing ADl endurance Treatment Focus Discharge Recommendations OT Discharge Recommendations Home with Assistance Home Equipment Needs shower chair Transportation Needs at Discharge Private Vehicle
--- NOTE | 2022-07-18 14:02 | OT.IP.EVAL ---
Current Diagnoses Metabolic encephalopathy (07/16/22) Heart failure, unspecified (07/16/22) Human metapneumovirus pneumonia (07/16/22) Chronic obstructive pulmonary disease with (acute) exacerbation (07/16/22) Acute respiratory failure with hypoxia (07/16/22) Acute and chronic respiratory failure with hypoxia (07/16/22) Past Medical History (Last Reviewed 07/16/22 @ 12:31 by Mynor Montano DO) COPD (chronic obstructive pulmonary disease) Occupational Therapy Inpatient Evaluation/Re-Eval M1 PT/OT-IP Prior Functional Status Start: 07/17/22 08:56 Freq: NEEDED Status: Active Protocol: Document 07/18/22 12:57 [facility] (Rec: 07/18/22 16:27 [facility] [id number]) Medical Review Prior Functional Status Mobility and Gait Pt uses a cane or mainly holds onto surfaces in the RV. Pt uses a 4ww outside. Activities of Daily Living and IADL's Pt able to do most of her ADL' s and has her daughter present for showering needs. Social History Household Members spouse Living Arrangements RV Number of Stairs To Enter/Railing? Pt has 4 broken steps and left rail to go up and 3 steps with shower on right side and left side toilet cabinet to hold to in order to get to the bedroom. Pt has one step to the kitchen. Home Environment Standard Height Toilet,Walk in Shower Home Equipment Four Wheel Walker,Straight Cane,Shower Seat without Backrest,Hand Held Shower Additional Social History Comment suction grab bar M2 OT-IP Current Condition Start: 07/18/22 16:02 Freq: Status: Active Protocol: Document 07/18/22 12:57 [facility] (Rec: 07/18/22 16:27 [facility] [id number]) Occupational Therapy Current Condition Current Condition Evaluation Date 07/18/22 Treatment Diagnosis Human Metapneumovirus, COPD exacerbation Diagnosis Onset Date 07/16/22 M3 OT- IP Subjective and Pain Start: 07/18/22 16:02 Freq: Status: Active Protocol: Document 07/18/22 12:57 [facility] (Rec: 07/18/22 16:27 [facility] [id number]) OT- Subjective Occupational Therapy Visit Type Type Initial Evaluation Visit Start Time 12:57 Visit Stop Time 14:02 Total Visit Minutes 65 Occupational Therapy Visit Comments Patient Comments Pt agreed to get up. Pt very tearful and hospitalist was in for part of the session. Patient/Caregiver Goals To go home. OT Pain Assessment Pain When Pain Assessed At Rest Pain Present Pain Present Pain Reported M4 OT- IP ADL's Start: 07/18/22 16:02 Freq: Status: Active Protocol: Document 07/18/22 12:57 [facility] (Rec: 07/18/22 16:27 [facility] [id number]) OT UNL-Dmvj-Gzsoplf Comments OT Self-Feeding Comments Not at meal time, pt able to drink independently for water bottle. OT ADL-Grooming Comments OT Grooming Comments Pt able to wash her face after set-up. OT ADL-Oral Care General Eval Oral Care Ability Independent OT ADL-Dressing General Eval Lower Body Dressing Ability Independent Comments OT Dressing Comments Pt able to long sit up in the bed independently to olivia/doff her socks. OT ADL-Toileting Comments OT Toileting Comments pt not having to go but able to get up and down from the toilet with SBA. OT ADL-Bathing Comments OT Bathing Comments Pt too tired to shower at this time. M5 OT- IP IADL's Start: 07/18/22 16:02 Freq: Status: Active Protocol: Document 07/18/22 12:57 [facility] (Rec: 07/18/22 16:27 [facility] [id number]) OT-Instrumental Activities of Daily Living Deficits IADL Deficits Identified Deficits Home Safety Awareness Awareness of Need for Assistance at Home Good Awareness Ability to Problem Solve Emergency Able to Problem Solve Situations Medication Management Medication Management Comments Pt's states her grand daughter chicken picker her meds. Money Management Money Management Caregiver Provides Assistance Meal Preparation Meal Preparation Caregiver Provides Assist Forest Ecologist Forest Ecologist Caregiver Provides Assist M6 OT- IP Functional Cognition Start: 07/18/22 16:02 Freq: Status: Active Protocol: Document 07/18/22 12:57 [facility] (Rec: 07/18/22 16:27 [facility] [id number]) Cognitive Factors Limiting Selfcare Function Cognitive Ability Level of Alertness Alert Patient Orientation Name,Place,Situation Attention Span Ability Capable of Focused Attention, Capable of Sustained Attention Ability to Follow Commands Able to Follow Multi-Step Commands Cognitive Comments Cognitive Assessment Comments Pt able to follow commands for ADL and mobility needs and appears at baseline for cognitive needs. Pt's grand daughter assist with medications and bills. OT- Vision and Hearing OT- Hearing Assessment OT- Hearing Assessment WFL OT- Vision Assessment Vision Assessment Comments Pt states can not afford glasses but able to read the clock appropriately. M7 OT- IP Mobility and Balance Start: 07/18/22 16:02 Freq: Status: Active Protocol: Document 07/18/22 12:57 [facility] (Rec: 07/18/22 16:27 [facility] [id number]) OT- Bed Mobility Assessment Rolling Level of Assistance Independent Supine to Sit Supine to Sit Assist Independent Sit to Supine Sit to Supine Assist Independent Scooting Scooting to Edge of Bed Independent OT-Transfer Assessment Sit to and From Stand Sit to and from Stand Standby Assistance Transfers Transfer Ability Standby Assistance Technique Transfer Destination Bed,Toilet Transfer Technique Stand Step Pivot Devices Transfer Assistive Devices Gait Belt,Front Wheeled Walker Comments Mobility Comments O2 on 3l and dropped to 86% after walking to the bathroom with FWW and able to quickly recover after 30 seconds to 93 %. OT- Balance Assessment Sitting Balance and Reactions Static Sitting Balance Ability Normal Dynamic Sitting Balance Ability Normal Standing Balance and Reactions Static Standing Balance Ability Good Dynamic Standing Balance Ability Good Comments Other Balance Tests/Deviations/Treatment Pt able to safely manage O2 : line while up walking with the FWW. M8 OT- IP Objective Assessments Start: 07/18/22 16:02 Freq: Status: Active Protocol: Document 07/18/22 12:57 [facility] (Rec: 07/18/22 16:27 [facility] [id number]) OT Gross Range of Motion Upper Extremity Range of Motion ROM Impairments Decreased at end ROM. OT Strength Comments Strength Comments From elbow to distal 4/5. OT- Coordination Assessment Upper Extremity Finger to Nose Test Within Functional Limits OT-Muscle Tone Assessment Muscle Tone WNL Yes M9 OT- IP Assessment and Plan Start: 07/18/22 16:02 Freq: Status: Active Protocol: Document 07/18/22 12:57 [facility] (Rec: 07/18/22 16:27 [facility] [id number]) OT Summary Assessment and Plan Potential Rehabilitation Potential Good Analytic Complexity at Evaluation Moderate Summary OT Impairments Pain,Balance,Functional Mobility,Bathing,Activity Tolerance Progress Towards Goals Progressing Toward Goals Assessment Summary Pt MOD complexity and main barrier are pain and decreased activity tolerance. Pt when medically stable to go home with assist. Goals Grooming Goal Independent Dressing Goal Independent Toileting Goal Independent Toilet Transfer Goal Standby Assistance Shower Transfer Goal Standby Assistance Patient/Caregiver Education Goal Demonstrate Energy Conservation and Pacing Days to Meet Goals 2 Frequency of Treatment Frequency Of Treatment Once a Day Treatment Plan OT Treatment Plan ADL Training,Functional Mobility,Patient/Family Education,Discharge Planning Other Treatment Recommendations and Next shower Treatment Focus Discharge Recommendations OT Discharge Recommendations Home with Assistance Home Equipment Needs shower chair Transportation Needs at Discharge Private Vehicle
--- NOTE | 2022-07-18 16:20 | PT.IIE ---
Current Diagnoses Metabolic encephalopathy (07/16/22) Heart failure, unspecified (07/16/22) Human metapneumovirus pneumonia (07/16/22) Chronic obstructive pulmonary disease with (acute) exacerbation (07/16/22) Acute respiratory failure with hypoxia (07/16/22) Acute and chronic respiratory failure with hypoxia (07/16/22) Medical History (Last Reviewed 07/16/22 @ 12:31 by Mynor Montano DO) COPD (chronic obstructive pulmonary disease) Physical Therapy Inpatient Evaluation/Re-Eval M1 PT/OT-IP Prior Functional Status Start: 07/17/22 08:56 Freq: NEEDED Status: Active Protocol: Document 07/18/22 16:20 DLM (Rec: 07/18/22 16:46 DLM [id number]) Medical Review Prior Functional Status Medical History Reviewed Yes Diet/Fluid Consistency Regular Communication WNL Mobility and Gait Independent in her RV without device or uses cane, sometimes she holds to furniture/jay, uses 4WW outside the home she uses 3 LPM oxygen at home Activities of Daily Living and IADL's Independent, Granddaughter present for showering Social History Household Members spouse Living Arrangements House Number of Floors (Floors) One Floor Number of Stairs To Enter/Railing? 5 steps to enter with rail, 2- 3 steps to bathroom, one step into living room Home Environment Standard Height Toilet,Walk in Shower Home Equipment Four Wheel Walker,Straight Cane Additional Social History Comment she reports her Spouse does not help much home oxygen at 3 LPM M2 PT-IP Current Condition Start: 07/17/22 08:56 Freq: NEEDED Status: Active Protocol: Document 07/18/22 16:20 DLM (Rec: 07/18/22 16:46 DLM [id number]) Physical Therapy Current Condition Current Condition Evaluation Date 07/18/22 Treatment Diagnosis metapnumovirus, impaired gait Onset Date 07/16/22 M3 PT-IP Subjective Start: 07/17/22 08:56 Freq: NEEDED Status: Active Protocol: Document 07/18/22 16:20 DLM (Rec: 07/18/22 16:46 DLM [id number]) Subjective Physical Therapy Visit Type Type Initial Evaluation Visit Start Time 15:20 Visit Stop Time 16:20 Total Visit Minutes 60 Number of SECURITY DIRECTOR Visits 0 Physical Therapy Visit Comments Patient Comments She wants to be able to go home but understands she is not ready yet. Patient Goals Discharge home Therapy Pain Assessment Pain When Pain Assessed After Treatment Pain Present Pain Present Pain Reported Location Generalized Intensity 7 Scale Used Numeric (0 - 10) Description Aching,Tender M4 PT-IP Mobility and Gait Start: 07/17/22 08:56 Freq: NEEDED Status: Active Protocol: Document 07/18/22 16:20 DLM (Rec: 07/18/22 16:46 DLM [id number]) PT-Bed Mobility Assessment Rolling Level of Assist Independent Supine to Sit Supine to Sit Independent Sit to Supine Sit to Supine Independent Scooting Scooting to Edge of Bed Independent Scooting Up and Down in Bed Independent PT-Transfer Assessment Sit to and From Stand Sit to and from Stand Independent,Use of Upper Extremities Equipment Transfer Assistive Device None Transfers Transfer Destination Chair Transfer Technique Stand Step Pivot Transfer Ability Level of Assist Standby Assistance,Use of Upper Extremities Comments Mobility Comments mild unsteadiness taking steps during transfer without UE support but no loss of balance observed Gait Assessment Gait Gait Assistance Required: Standby Assistance Distance (Feet) 20 Assistive Devices Assistive Device Front Wheeled Walker Factors Limiting Gait Function Factors Limiting Gait Function Decreased Activity Tolerance, Respiratory Distress Comments Gait Comments she demonstrates safe use of FWW for gait, using 4 LPM oxygen, pt declined use of gait belt Stair Climbing Assessment Evaluation Level of Assist On Stairs Standby Assistance Devices Stair Climbing Assistive Devices Left Railing,Right Railing Technique/Endurance Stair Climbing Direction Ascend and Descend Stair Climbing Technique Step to Step Number of Steps Climbed 3 Query Text: Stair Climbing Set # Repetitions (reps) 2 Comments Stair Climbing Comments seated rest to manage respiratory status between stair trials, pt using 4 LPM of oxygen PT-Balance Assessment Sitting Balance and Reactions Static Sitting Balance Ability Normal Dynamic Sitting Balance Ability Normal Standing Balance and Reactions Static Standing Balance Ability Good Dynamic Standing Balance Ability Good Device Used FWW M5 PT-IP Objective Assessments Start: 07/17/22 08:56 Freq: NEEDED Status: Active Protocol: Document 07/18/22 16:20 DLM (Rec: 07/18/22 16:46 DLM [id number]) Orientation Orientation/Cognition Level of Alertness Alert Orientation Name,Age,Birthday,Month,Date, Year,Day of Week,Place, Situation Language Function Ability No Deficits Noted Safety Awareness Understands Safety Issues Memory Description No Deficits Noted Comments cooperative and following instructions Gross Range of Motion Upper Extremity ROM Assessment Within Functional Limits Lower Extremity ROM Assessment Within Functional Limits Strength Upper Extremity Strength Assessment Within Functional Limits Lower Extremity Strength Assessment Within Functional Limits Coordination Assessment Gross Coordination Gross Coordination WNL Sensation Assessment Sensation Gross Sensation Right LE Impaired,Left LE Impaired Light Touch Impaired Sensation Description Numbness,Tingling Comments Sensation Comments bilateral feet numbness, tingling to touch Muscle Tone Muscle Tone WNL Yes M6 PT-IP Treatment Start: 07/17/22 08:56 Freq: NEEDED Status: Active Protocol: Document 07/18/22 16:20 DLM (Rec: 07/18/22 16:46 DLM [id number]) Physical Therapy Treatment Education Education Provided Safety M7 PT-IP Assessment and Plan Start: 07/17/22 08:56 Freq: NEEDED Status: Active Protocol: Document 07/18/22 16:20 DLM (Rec: 07/18/22 16:46 DLM [id number]) PT Summary Assessment and Plan Potential Rehabilitation Potential Good Status of Condition at Evaluation Evolving Summary Impairments Pain,Balance,Sensation,Gait, Activity Tolerance Assessment Summary Bernarda is alert and resting in bed. She is motivated to discharge home when medically ready. She is eager to do training on the stairs today to get ready to discharge home . She demonstrates safe gait with the FWW but has decreased activity tolerance. She was able to go up/down steps but fatigues quickly. Pt using 3-4 LPM oxygen during this treatment with O2 sats 90% or greater. She used seated rest breaks to manage her shortness of breath with good recovery. She has an intermittent cough . Will plan for discharge home from the hospital with home health PT. Will work to increase her activity tolerance while she is hospitalized. Goals Transfer Goal Independent Gait Goal Independent,Front Wheel Walker Gait Distance 50 feet Other Goals up/down 5 steps SBA with rails Days to Meet Goals 3 Frequency of Treatment Frequency Of Treatment Once a Day Treatment Plan Physical Therapy Treatment Plan Transfer Training,Gait Training,Therapeutic Exercise, Discharge Planning Precautions Other Precautions oxygen use 3-4 LPM Recommendations To Nursing Amount of Assist Needed Standby Assistance Discharge Recommendations PT Discharge Recommendations Home with Assistance,Home Health Transportation Needs at Discharge Private Vehicle
--- NOTE | 2022-07-18 20:51 | PC.NURSE ---
Fan on high speed facing forehead
[2022-07-19] VITALS (13 sets, daily range): BP systolic 98–129; BP diastolic 47–75; PULSE 57–64; RESP 16–24; TEMP 35.8–36.6; O2SAT 90–93
[2022-07-19] MEDS: ALBUTEROL/IPRATROPIUM 3 ML AMPUL INH ×6 (00:14→22:23)
[2022-07-19] MEDS: OXYCODONE IR 5 MG TABLET PO ×4 (00:25→20:59)
[2022-07-19] MEDS: ACETAMINOPHEN 325 MG TABLET 650 MG PO ×2 (00:25→17:39)
[2022-07-19] MEDS: BENZONATATE 100 MG CAPSULE PO ×2 (00:26→17:39)
[2022-07-19 06:35] LABS: Hemoglobin 15.5 g/dL (12.0-16.0); Mean Corpuscular HGB Conc 32.2 % (30-36); Mean Corpuscular Hemoglobin 30.4 PG (26-34); Mean Corpuscular Volume 94.2 fL (80-100); Platelet Count 258 X10^3/uL (150-400); Red Blood Cell Count 5.09 X10^6/uL (4.0-5.2); Red Cell Distribution Width 13.6 % (11.6-14.8); White Blood Cell Count 16.8 X10^3/uL (4.5-11.0)
[2022-07-19 06:36] LABS: Add Manual Diff / Slide Review YES
[2022-07-19 06:54] LABS: BUN Creatinine Ratio 36.4 (6-22); Blood Urea Nitrogen 39 mg/dL (7-17); Calcium 9.1 mg/dL (8.4-10.2); Carbon Dioxide 36 mmol/L (22-32); Chloride 97 mmol/L (98-107); Estimated Glomerular Filt Rate 60 mL/min (>60); Glucose 77 mg/dL (70-100); HEMOLYSIS 18 (0-50); Potassium 4.8 mmol/L (3.4-5.1); Sodium 135 mmol/L (137-145)
[2022-07-19 07:15] LABS: Neutrophils Absolute Manual 12600 /uL (3000-5900); RBC Morphology Normal Morphology; Total Cells Counted 100
[2022-07-19] MEDS: guaiFENesin ER 600 MG TAB PO ×2 (08:33→20:52)
[2022-07-19] MEDS: METOPROLOL ER 50 MG TABLET 100 MG PO (08:33)
[2022-07-19] MEDS: predniSONE 20 MG TABLET 40 MG PO (08:34)
[2022-07-19] MEDS: SPIRONOLACTONE 25 MG TABLET PO (08:34)
[2022-07-19] MEDS: APIXABAN 5 MG TABLET PO ×2 (08:34→20:52)
[2022-07-19] MEDS: AMIODARONE 200 MG TABLET 100 MG PO (08:34)
[2022-07-19] MEDS: MONTELUKAST 10 MG TABLET PO (08:34)
[2022-07-19] MEDS: SODIUM CHLORIDE 0.9% FLUSH 10 ML IV ×3 (08:35→21:59)
[2022-07-19] MEDS: BUDESONIDE 0.5 MG/2 ML NEB INH ×2 (08:49→19:13)
--- NOTE | 2022-07-19 13:53 | CM.DPC ---
DCP Cont: Discussed patient during team rounds. Patient could possibly go home today, patient continues to state that she is not feeling well. [facility] has been ordered for patient. She resides in [place] with spouse, Scottie. She is on home oxygen at her baseline. She is [employer]/Medicaid, does not have [employer] benefits currently. P: DCP to continue to follow. Plan is home with [facility], face face is completed, will just need orders and DC Summary upon discharge. Mila Medel RN/Sales And Service Representative
--- NOTE | 2022-07-19 14:07 | P.PN_ITS ---
Subjective Subjective Date Patient Seen: 07/19/22 Interval history: Patient does note some improvement in the cough and breathing. States there is a lot of thick white or creamy phlegm. She is presently on 3 L NC. Exam Vital Signs (past 8 hours): - 07/19/22 08:33 07/19/22 07:00 07/19/22 08:50 Temperature 97.9 F Pulse Rate 62 60 Respiratory Rate 16 20 Blood Pressure 101/57 L 101/57 L Pulse Oximetry 91 92 Oxygen Delivery Method High Flow Nasal Cannula Oxygen Flow Rate 3 07/19/22 11:46 07/19/22 13:52 Temperature Pulse Rate 61 63 Respiratory Rate 18 18 Blood Pressure Pulse Oximetry 92 93 Oxygen Delivery Method High Flow Nasal Cannula High Flow Nasal Cannula Oxygen Flow Rate 3 Fraction of Inspired Oxygen 36 SaO2/FiO2 Ratio 263 Oxygen Delivery Method High Flow Nasal Cannula Oxygen Flow Rate 3 Narrative Exam Narrative: General: Alert and cooperative Lungs: Diffuse inspiratory and expiratory wheeze Extremities: No edema Neuro: Affect somewhat anxious, speech normal Objective Labs 07/19/22 06:17 07/19/22 06:17 Labs: Laboratory Results - last 24 hr 07/19/22 07/19/22 06:17 06:17 WBC 16.8 H RBC 5.09 Hgb 15.5 Hct 48.0 H MCV 94.2 MCH 30.4 MCHC 32.2 RDW 13.6 Plt Count 258 Neut % (Auto) Not Reportable Lymph % (Auto) Not Reportable [place] % (Auto) Not Reportable Eos % (Auto) Not Reportable Baso % (Auto) Not Reportable Lymph # (Auto) Not Reportable [place] # (Auto) Not Reportable Baso # (Auto) Not Reportable Total Counted 100 Seg Neutrophils % 75.0 H Lymphocytes % (Manual) 5.0 L Atypical Lymphs % 17.0 H Monocytes % (Manual) 3.0 Neutrophils # (Manual) 92130 H RBC Morphology Normal morphology Sodium 135 L Potassium 4.8 Chloride 97 L Carbon Dioxide 36 H BUN 39 H Creatinine 1.07 H Estimated GFR 60 BUN/Creatinine Ratio 36.4 H Glucose 77 D Calcium 9.1 PFSH Medical History COPD (chronic obstructive pulmonary disease) Social History household members: spouse lives independently: Yes Smoking Status: Current every day smoker Assessment & Plan Assessment & Plan narrative: 1. Acute on chronic hypoxic and hypercarbic respiratory failure, improving Patient presents after leaving outside hospital Against Medical Advice after a 5 day hospital stay.? While there, she received diuresis, fluid restriction, IV steroids, and respiratory treatments.? Upon arriving to our emergency department, she was hypoxic with room air saturations of 70%, tachypneic, and noting severe respiratory distress.? Chest x-ray reveals evidence of congestive heart failure.? Exam also indicates a component of COPD exacerbation likely exacerbated by metapneumovirus.? Received furosemide 40 mg IV b.i.d. and Solu- Medrol 80 mg IV q.12.? Initially required bipap but now on 3L NC. Lasix and diamox stopped on 06/19 due to uptrending Cr. -continue oral prednisone 40 mg daily started on 07/18 through 07/22, continue nebs with RT, continue guaifenesin -patient with improving course, back on baseline O2 requirements and hopefully can discharge home tomorrow, 2. Acute on chronic systolic congestive heart failure exacerbation Congestive heart failure noted on chest x-ray as well as on previous imaging done at the outside hospital.? No echocardiogram available in records to denote the severity of her congestive heart failure.? Will obtain an echocardiogram.? Diuresed to euvolemia. Echo 07/17 with EF 25-30% withi severe global hypokinesis of LV and inferior, posterolateral wall. Restarted home metoprolol and aldactone. 3. COPD exacerbation, likely secondary to metapneumovirus infection Continue her outpatient respiratory medications. Received IV Solu-Medrol 80 mg q.12.? Will start budesonide with Duo nebs 4 times daily scheduled. Now on po prednisone 40mg daily to finish 5 days. 4. Metapneumovirus infection She tested positive both at the outside hospital and on admission here.? She is afebrile.? She does have a leukocytosis but this is likely steroid induced rather than related to an infection as she was afebrile and not complaining of URI symptoms for the duration of her hospitalization at the outside hospital. Continue supportive care. Mucinex and tessalon perles ordered. 5. Coronary artery disease with prior CO Troponin here is negative. On eliquis. 6. History of cardiac arrest, status post pacemaker/AICD placement Per outside records, she reports receiving a shock a couple of times a year.? I am uncertain when she last had her device interrogated. 7. Atrial fibrillation on chronic anticoagulation with Eliquis No RVR at this time.? Regular on exam.? Restarted home amio and eliquis. 8. Diabetes mellitus type 2 On oral medications only per report.? A1c at the outside facility was reported to be 8%.? Will place on fingersticks and sliding scale. Added lantus 30 units daily due to elevated sugars. 9. Class 3 obesity with BMI of 42.2 Her obesity puts her at significant risk of morbidity and mortality.? Would greatly benefit from weight reduction. 10. Reported CKD stage 3 As noted, outside documentation shows history of CKD 3.? However here her GFR and creatinine are normal.? Will monitor. 11. Chronic pain syndrome uncertain if she takes chronic opioid medication at baseline.? She is not pr esently complaining of any pain.? Would avoid opioids for now given her BiPAP dependence, as I suspect she also has a component of obesity hypoventilation syndrome. 12. Hypertension Blood pressures are normotensive here.? Holding home lisinopril due to uptrending Cr. 13. Hyperlipidemia Not on statin. Time Spent With Patient Critical Care time: I spent a total of [] minutes of critical care time on this patient's care tod ay; this time is exclusive of procedural time.
--- NOTE | 2022-07-19 14:11 | PT-IP ANOTE ---
PT attempted to see pt at 14:10 this afternoon, respiratory leaving room. Pt is upset currently and refused to have PT at this time. Will try to attempt to see later in afternoon.
--- NOTE | 2022-07-19 15:05 | OT.IPNOTE ---
Pt's friend wanting to take her home today and clarified with the hospitalist that she will go home tomorrow. Pt's friend wanting pt to have a shower prior to going home. Pt has assist for showers at home and not a OT goal as pt gets too tired and has to have assist for all showering needs. NO charge. Nursing aware that pt would like to shower.
--- NOTE | 2022-07-19 15:20 | PT.IPTN ---
Current Diagnoses Metabolic encephalopathy (07/16/22) Heart failure, unspecified (07/16/22) Human metapneumovirus pneumonia (07/16/22) Chronic obstructive pulmonary disease with (acute) exacerbation (07/16/22) Acute respiratory failure with hypoxia (07/16/22) Acute and chronic respiratory failure with hypoxia (07/16/22) Physical Therapy Treatment Note M2 PT-IP Current Condition Start: 07/17/22 08:56 Freq: NEEDED Status: Active Protocol: Document 07/18/22 16:20 DLM (Rec: 07/18/22 16:46 DLM [id number]) Physical Therapy Current Condition Current Condition Evaluation Date 07/18/22 Treatment Diagnosis metapnumovirus, impaired gait Onset Date 07/16/22 M3 PT-IP Subjective Start: 07/17/22 08:56 Freq: NEEDED Status: Active Protocol: Document 07/19/22 15:35 TS (Rec: 07/19/22 16:06 TS [id number]) Subjective Physical Therapy Visit Type Type Treatment Note Visit Start Time 15:20 Visit Stop Time 15:29 Total Visit Minutes 9 Physical Therapy Visit Comments Patient Comments Pt found in bed, RN and MOLD CLAMPER in room discussing care, pt requesting shower. Patient Goals Discharge home. M4 PT-IP Mobility and Gait Start: 07/17/22 08:56 Freq: NEEDED Status: Active Protocol: Document 07/19/22 15:35 TS (Rec: 07/19/22 16:06 TS [id number]) PT-Bed Mobility Assessment Scooting Scooting to Edge of Bed Independent Scooting Up and Down in Bed Independent PT-Transfer Assessment Sit to and From Stand Sit to and from Stand Independent,Use of Upper Extremities Comments Mobility Comments Pt found in bed discussing care with RN and MOLD CLAMPER, taken off O2 for mobility per nursing approval. She scooted to EOB wth BUE support Ind and maintained good sitting balance on EOB. She performed sit to stand Ind with UE's on FWW. She ambulated to bathroom SBA for shower w/FWW, WBOS, no signs of buckling or loss of balance. She sat on shower chair Ind with use of BUE for eccentric control. Pt was left in bathroom with MOLD CLAMPER for shower. Gait Assessment Gait Gait Assistance Required: Standby Assistance Distance (Feet) 8 Assistive Devices Assistive Device Front Wheeled Walker Comments Gait Comments She continues to demonstrate safe use of FWW. She ambulates with a WBOS, step to gait and no signs of buckling of LE's. PT-Balance Assessment Sitting Balance and Reactions Static Sitting Balance Ability Normal Dynamic Sitting Balance Ability Normal Standing Balance and Reactions Static Standing Balance Ability Good Dynamic Standing Balance Ability Good Device Used FWW M5 PT-IP Objective Assessments Start: 07/17/22 08:56 Freq: NEEDED Status: Active Protocol: Document 07/18/22 16:20 DLM (Rec: 07/18/22 16:46 DLM [id number]) Orientation Orientation/Cognition Level of Alertness Alert Orientation Name,Age,Birthday,Month,Date, Year,Day of Week,Place, Situation Language Function Ability No Deficits Noted Safety Awareness Understands Safety Issues Memory Description No Deficits Noted Comments cooperative and following instructions Gross Range of Motion Upper Extremity ROM Assessment Within Functional Limits Lower Extremity ROM Assessment Within Functional Limits Strength Upper Extremity Strength Assessment Within Functional Limits Lower Extremity Strength Assessment Within Functional Limits Coordination Assessment Gross Coordination Gross Coordination WNL Sensation Assessment Sensation Gross Sensation Right LE Impaired,Left LE Impaired Light Touch Impaired Sensation Description Numbness,Tingling Comments Sensation Comments bilateral feet numbness, tingling to touch Muscle Tone Muscle Tone WNL Yes M6 PT-IP Treatment Start: 07/17/22 08:56 Freq: NEEDED Status: Active Protocol: Document 07/19/22 15:35 TS (Rec: 07/19/22 16:06 TS [id number]) Physical Therapy Treatment Education Education Provided Safety M7 PT-IP Assessment and Plan Start: 07/17/22 08:56 Freq: NEEDED Status: Active Protocol: Document 07/19/22 15:35 TS (Rec: 07/19/22 16:06 TS [id number]) PT Summary Assessment and Plan Potential Rehabilitation Potential Good Status of Condition at Evaluation Evolving Summary Impairments Pain,Balance,Sensation,Gait, Activity Tolerance Assessment Summary Bernarda continues to move independently scooting EOB and performing sit to stands. She ambulated SBA w/FWW demonstrating good management of FWW and safety awareness. PT is still recommending return to home with HHPT. Would like to see her increase her ambulation distance before discharge. Goals Transfer Goal Independent Gait Goal Independent,Front Wheel Walker Gait Distance 50 feet Other Goals up/down 5 steps SBA with rails Days to Meet Goals 3 Frequency of Treatment Frequency Of Treatment Once a Day Treatment Plan Physical Therapy Treatment Plan Transfer Training,Gait Training,Therapeutic Exercise, Discharge Planning Other Recommendations and Next Treatment Increase gait, balance testing Focus , continue stair training. Precautions Other Precautions Taken off O2 this session. Recommendations To Nursing Amount of Assist Needed Standby Assistance Discharge Recommendations PT Discharge Recommendations Home with Assistance,Home Health Transportation Needs at Discharge Private Vehicle
[2022-07-19] MEDS: ALBUTEROL 2.5 MG/3 ML NEB (ADULT) INH (16:52)
[2022-07-19] MEDS: INSULIN LISPRO 100 UNIT/ML 3ML VIAL SUBCUT ×2 (17:34→20:46)
[2022-07-19] MEDS: ONDANSETRON 4 MG/2 ML INJ IV (21:59)
[2022-07-20] VITALS: O2SAT 91
[2022-07-20 04:00] VITALS: BP 118/55; PULSE 60; RESP 24; TEMP 36.5; O2SAT 93
[2022-07-20] MEDS: OXYCODONE IR 5 MG TABLET PO (06:17)
[2022-07-20 08:00] VITALS: O2SAT 94
[2022-07-20] MEDS: BUDESONIDE 0.5 MG/2 ML NEB INH (08:25)
[2022-07-20 08:26] VITALS: PULSE 59; RESP 16; O2SAT 95
[2022-07-20] MEDS: ALBUTEROL/IPRATROPIUM 3 ML AMPUL INH (08:26)
[2022-07-20 08:36] VITALS: BP 118/59; PULSE 61; RESP 18; TEMP 36.1; O2SAT 96
[2022-07-20] MEDS: APIXABAN 5 MG TABLET PO (09:22)
[2022-07-20] MEDS: SPIRONOLACTONE 25 MG TABLET PO (09:22)
[2022-07-20] MEDS: predniSONE 20 MG TABLET 40 MG PO (09:22)
[2022-07-20] MEDS: guaiFENesin ER 600 MG TAB PO (09:23)
[2022-07-20] MEDS: MONTELUKAST 10 MG TABLET PO (09:23)
[2022-07-20 09:24] VITALS: BP 118/59
[2022-07-20] MEDS: SODIUM CHLORIDE 0.9% FLUSH 10 ML IV (09:40)
--- NOTE | 2022-07-20 10:25 | PT-IP ANOTE ---
Attempted to see pt at 10:25 AM, pt refused PT stating she has no further needs and would like to conserve energy for her d/c home.
--- NOTE | 2022-07-20 11:07 | PM.DS.1 ---
History of Present Illness History of Present Illness Chief complaint: Sob, congestive heart failure per pt Narrative: 57-year-old female with COPD, chronic hypoxic respiratory failure (prescribed 2-3 L of oxygen continuously), chronic systolic congestive heart failure, coronary artery disease with her 1st MS at age 29 previous cardiac arrest status post pacemaker/AICD placement, diabetes mellitus type 2 on oral antidiabetic agents, class 3 obesity, who presented after leaving Against Medical Advice from [facility] today after a 5 day hospitalization. Patient was admitted to [facility] on July 11, 2022. She presented complaining of a 1 day history of severe shortness of breath. She reported using 2-3 L of oxygen continuously but her granddaughter reported over the month prior she had been increasing it to 4 L due to her shortness of breath. She was given steroids and found to have a combination of both congestive heart failure and COPD exacerbation. She was hypoxic in the emergency department and required supplemental O2. She was admitted with acute on chronic hypoxic respiratory failure felt to be secondary to acute on chronic systolic CHF and COPD exacerbation. She was placed on IV diuretics, fluid restriction of 2000 cc, IV Solu-Medrol, and her usual home medications. She did test positive for human metapneumovirus which was felt to be the etiology of her COPD exacerbation. On July 14, she was able to be weaned from 4 L of oxygen to 3 L of oxygen. However, patient was having her granddaughter bring in potato chips and extra fluids due to complaining of thirst well on the fluid restricted diet. This morning, patient requested to leave Against Medical Advice. She was noted to take her oxygen off and have sats down to 70% room air. She ultimately had her granddaughter take her from [facility] and brought her to [facility] Emergency Department. Her primary care provider referred her to hospice in June of this year. She had an informational visit with hospice but reported she continued to want aggressive interventions for her disease processes. With regard to her coronary artery disease, she reportedly has had multiple MIs as noted with the 1st 1 occurring at age 29. On arrival to the emergency department, patient was noted to be hypoxic at 78% in room air. She came up to 89% on 4 L. Respiratory rate increased over her time in the emergency department to a max of 38. She did require titration to 5 L via nasal cannula due to continuing low oxygen saturations. Labs revealed a white blood cell count of 20.6 (it was 16 at [facility] today), hemoglobin 15.8, hematocrit 40.5, platelets 320. Chemistry revealed a sodium of 136, potassium 4.1, chloride 90, bicarb 38, BUN 41, creatinine 0.8, glucose 248. Initial lactate was 2.2. ALT was elevated at 74. BNP was 2860. Troponin was less than 0.012. Again human metapneumovirus was positive. All other viral respiratory studies were negative. Chest x-ray revealed cardiomegaly with pulmonary vascular congestion. Due to worsening anemia and patient complaints of severe shortness of breath, an ABG was performed. PH was 7.45, pCO2 69, PO2 50, bicarb 48, O2 sat 84% on 40% FiO2. Due to her persistent respiratory distress and overall fatigue, BiPAP was placed upon transfer from the emergency department to the ICU. RT notes since BiPAP has been placed, her respiratory status is improved. She is presently on FiO2 of 35%. She does answer questions with a brief shake her head yes or no. She does outer head yes that she is feeling better with the BiPAP. She also reiterates her full code status. Discharge Providers Provider Date of admission: 07/16/22 13:14 Discharge Date: 07/20/22 Primary care physician: Jolene Steen PA-C Consults: 07/16/22 13:53 Consult to Cardio/Pulmonary Rehabilitation Routine Comment: Physician Instructions: Evaluate and treat Consult to Discharge Planning Routine Comment: Consult to Occupational Therapy Evaluate & Treat Comment: Physician Instructions: Evaluate and treat Consult to Physical Therapy Evaluate & Treat Comment: Physician Instructions: Evaluate and Treat 07/16/22 13:59 Consult to Tele-drying frame operator Routine Comment: Consulting Provider: [employer] Reason for consultation: Dietary Services Director services 07/16/22 14:03 Consult to Tele-drying frame operator Routine Comment: Consulting Provider: [employer] Reason for consultation: Dietary Services Director services Discharge provider: Jai Thornton MD Summary Hospital Course Discharge Diagnosis: Acute on chronic hypoxic hypercarbic respiratory failure, present on admission and improved Acute on chronic systolic congestive heart failure, present on admission and improved. COPD exacerbation, present on admission and improved. Metapneumovirus infection, present on admission and improved. Coronary artery disease, present on admission and stable. Atrial Fibrillation, present on admission and stable. Class 3 obesity, present on admission and active Chronic kidney disease 3, present on admission and stable. Essential hypertension, present on admission and stable Hospital Course: The patient presented to the hospital with acute respiratory failure. In November she was found to have evidence of pulmonary edema and was diuresed. Echo reveals an EF of 25-30% with severe global hypokinesis. She also was treated for COPD exacerbation given her reactive. She was able to wean off from oxygen without difficulty, initially she did require BiPAP. The patient is on home oxygen at 3 L which is her baseline and the amount of oxygen she was on the day of discharge. The patient had no evidence of an acute coronary syndrome while in the hospital. She felt close to her baseline on the day of discharge was picked up by a family member. She was given a loaner oxygen tank to get home to her regular set up. Status at Discharge Cognitive/behavioral status at discharge: oriented Functional status at discharge: independent ambulation Overall status at discharge: patient is back to baseline Time Spent with Patient Time spent: Greater than 30 minutes Exam Vital Signs (past 8 hours): - 07/20/22 04:00 07/20/22 04:00 07/20/22 08:26 Temperature 97.7 F Pulse Rate 60 59 L Respiratory Rate 24 16 Blood Pressure 118/55 L Pulse Oximetry 93 93 95 Oxygen Delivery Method High Flow Nasal Cannula High Flow Nasal Cannula Oxygen Flow Rate 3 3 3 07/20/22 08:36 07/20/22 09:24 07/20/22 08:00 Temperature 97.0 F L Pulse Rate 61 Respiratory Rate 18 Blood Pressure 118/59 L 118/59 L Pulse Oximetry 96 94 Oxygen Delivery Method Nasal Cannula Oxygen Flow Rate 3 3 Fraction of Inspired Oxygen 32 SaO2/FiO2 Ratio 290 Oxygen Delivery Method High Flow Nasal Cannula Oxygen Flow Rate 3 Narrative Exam Narrative: General: Alert and cooperative MS speech and judgment are normal. Lungs: Lungs are mostly clear with normal rate and effort. Heart is irregular and tachycardic. Extremities: No edema Neuro: Affect somewhat anxious, speech normal Objective Imaging Echo: My impression: Not personally read. Radiologist's impression: LVEF of 55-30% with severe global hypokinesis. Chest x-ray: My impression: Cardiomegaly and pulmonary edema. Radiologist's impression: Cardiomegaly and pulmonary Edema. Labs 07/19/22 06:17 07/19/22 06:17 [facility] Medical History COPD (chronic obstructive pulmonary disease) Social History household members: spouse lives independently: Yes Smoking Status: Current every day smoker Discharge Assessment & Plan Assessment and Plan Assessment: 1. Acute on chronic hypoxic and hypercarbic respiratory failure, improving Patient presents after leaving outside hospital Against Medical Advice after a 5 day hospital stay.? While there, she received diuresis, fluid restriction, IV steroids, and respiratory treatments.? Upon arriving to our emergency department, she was hypoxic with room air saturations of 70%, tachypneic, and noting severe respiratory distress.? Chest x-ray reveals evidence of congestive heart failure.? Exam also indicates a component of COPD exacerbation likely exacerbated by metapneumovirus.? Received furosemide 40 mg IV b.i.d. and Solu-Medrol 80 mg IV q.12.? Initially required bipap but now on 3L NC. Lasix and diamox stopped on 06/19 due to uptrending Cr. -continue oral prednisone 40 mg daily started on 07/18 through 07/22, continue nebs with RT, continue guaifenesin -patient had oxygen baseline and feels well enough to go home on July 20. 2. Acute on chronic systolic congestive heart failure exacerbation, present on admission and improved. Congestive heart failure noted on chest x-ray as well as on previous imaging done at the outside hospital.? No echocardiogram available in records to denote the severity of her congestive heart failure.? Will obtain an echocardiogram.? Diuresed to euvolemia. Echo 07/17 with EF 25-30% withi severe global hypokinesis of LV and inferior, posterolateral wall. Restarted home metoprolol and aldactone. 3. COPD exacerbation, likely secondary to metapneumovirus infection. Present on admission and improved. Continue her outpatient respiratory medications. Received IV Solu-Medrol 80 mg q.12.? Will start budesonide with Duo nebs 4 times daily scheduled. Now on po prednisone 40mg daily to finish 5 days. 4. Metapneumovirus infection. Present on admission and improved. She tested positive both at the outside hospital and on admission here.? She is afebrile.? She does have a leukocytosis but this is likely steroid induced rather than related to an infection as she was afebrile and not complaining of URI symptoms for the duration of her hospitalization at the outside hospital. Continue supportive care. Mucinex and tessalon perles ordered. 5. Coronary artery disease with prior MS, present on admission and stable. Troponin here is negative. On eliquis. 6. History of cardiac arrest, status post pacemaker/AICD placement. Present on admission and stable. Per outside records, she reports receiving a shock a couple of times a year.? I am uncertain when she last had her device interrogated. 7. Atrial fibrillation on chronic anticoagulation with Eliquis. Present on admission and stable. No RVR at this time.? Regular on exam.? Restarted home amio and eliquis. 8. Diabetes mellitus type 2. Present on admission and stable. On oral medications only per report.? A1c at the outside facility was reported to be 8%.? Will place on fingersticks and sliding scale. Added lantus 30 units daily due to elevated sugars. 9. Class 3 obesity with BMI of 42.2. Present on admission and stable. Her obesity puts her at significant risk of morbidity and mortality.? Would greatly benefit from weight reduction. 10. Reported CKD stage 3, present on admission and stable. As noted, outside documentation shows history of CKD 3.? However here her GFR and creatinine are normal.? Will monitor. 11. Chronic pain syndrome, present on admission and stable. uncertain if she takes chronic opioid medication at baseline.? She is not presently complaining of any pain.? Would avoid opioids for now given her BiPAP dependence, as I suspect she also has a component of obesity hypoventilation syndrome. 12. Hypertension, present on admission and stable. Blood pressures are normotensive here.? Holding home lisinopril due to uptrending Cr. We will resume upon discharge. 13. Hyperlipidemia, present on admission and stable. Not on statin. Discharge Plan Discharge Plan Patient Disposition: Home Health Service Transfer to: [facility] Discharge orders & Medications Prescriptions: New prednisone 20 mg Tablet 40 mg PO DAILY Qty: 3 0RF oxycodone 5 mg Tablet 5 mg PO Q4HR PRN (Reason: pain) Qty: 20 0RF glipizide [Glucotrol XL] 5 mg tablet extended release 24hr 5 mg PO DAILY Qty: 30 3RF Continued furosemide 40 mg tablet 40 mg PO BID Patient Comments: TAKE 1 TABLET BY MOUTH TWICE DAILY amiodarone 200 mg tablet 100 mg PO DAILY Patient Comments: TAKE 1/2 (ONE-HALF) TABLET BY MOUTH ONCE DAILY hydrocodone-acetaminophen 5-325 mg tablet 1 tab PO Q6H PRN (Reason: Pain (Scale Score 4-6)) Patient Comments: TAKE 1 TABLET BY MOUTH EVERY 6 HOURS NEEDED FOR PAIN metoprolol succinate 100 mg Tablet Extended Release 24 Hr 100 mg PO BID spironolactone 25 mg tablet 25 mg PO DAILY Patient Comments: TAKE 1 TABLET BY MOUTH ONCE DAILY montelukast 10 mg Tablet 10 mg PO DAILY lisinopril 5 mg tablet 5 mg PO DAILY Patient Comments: TAKE 1 TABLET BY MOUTH ONCE DAILY albuterol sulfate [Ventolin HFA] 90 mcg/actuation HFA aerosol inhaler 2 puff INHALATION QID PRN (Reason: Shortness Of Breath) Patient Comments: INHALE 2 PUFFS BY MOUTH 4 TIMES DAILY NEEDED Eliquis 5 mg tablet 5 mg PO BID Patient Comments: TAKE 1 TABLET BY MOUTH TWICE DAILY budesonide 90 mcg/actuation Aerosol Powdr Breath Activated 2 inh INHALATION BID prednisone 5 mg tablet 5 mg PO DAILY Qty: 3 0RF Medication counseling provided by Pharmacist: No Follow up/Referrals: Jolene Steen PA-C [Primary Care Provider] - Diet/Activity/Treatments Diet: Carb-consistent/Diabetic Activity: As tolerated. Skin/Wound/Dressing Care Report to your healthcare provider any signs of infection, such as:: chills, fever, night sweats and increased pain Visit Report/Discharge Packet Instructions: DI for Prescription Opioid Use Stand Alone Forms: Congestive Heart Failure, Patient Portal/API Discharge Data Primary Care Provider: Jolene Steen
== END 2022-07-20 11:52 | disposition home health service (06) | DRG 291 ==
LOC: ED 13:14 → AC 13:15 → ICU 14:08 → AC 07-18 00:35
PROVIDERS: Admitting Provider Family Medicine; Emergency Provider Emergency Medicine; Family Provider Internal Medicine; PCP Physician Assistant Medical; Referring Provider Emergency Medicine; Visit Provider Family Medicine
DX: I13.0 Hypertensive heart and chronic kidney disease with heart failure and stage 1 through stage 4 chronic kidney disease, or unspecified chronic kidney disease (principal); I50.23 Acute on chronic systolic (congestive) heart failure; J96.21 Acute and chronic respiratory failure with hypoxia; J96.22 Acute and chronic respiratory failure with hypercapnia; J12.3 Human metapneumovirus pneumonia; J44.0 Chronic obstructive pulmonary disease with (acute) lower respiratory infection; Z68.41 Body mass index [BMI] 40.0-44.9, adult; N18.30 Chronic kidney disease, stage 3 unspecified; J22 Unspecified acute lower respiratory infection; F17.200 Nicotine dependence, unspecified, uncomplicated; I48.91 Unspecified atrial fibrillation; E11.22 Type 2 diabetes mellitus with diabetic chronic kidney disease; E66.01 Morbid (severe) obesity due to excess calories; G89.4 Chronic pain syndrome; I25.10 Atherosclerotic heart disease of native coronary artery without angina pectoris; Z99.81 Dependence on supplemental oxygen; Z20.822 Contact with and (suspected) exposure to COVID-19; Z79.01 Long term (current) use of anticoagulants; Z95.0 Presence of cardiac pacemaker; Z79.84 Long term (current) use of oral hypoglycemic drugs
CPT/HCPCS: 36415; 36600; 71045; 80048; 80053; 82550; 82805; 82947; 82962; 83605; 83690; 83735; 83880; 84145; 84484; 85007; 85025; 87633; 87797; 93005; 93010; 93306; 94640; 94660; 94760; 94762; 96374; 97116; 97162; 97166; 97530; 99285; 99291; J1650; J1815; J1940; J2405; J2930; J7613

== ENCOUNTER 2022-08-29 16:28 | Inpatient (IN) | payer MEDICARE, MEDICAID, SELFPAY ==
[2022-07-16 13:41] VITALS: BMI 74.4
[2022-07-17 10:41] VITALS: PULSE 61; RESP 24; O2SAT 94
[2022-08-29] VITALS (66 sets, daily range): BP systolic 71–191; BP diastolic 42–108; PULSE 44–96; RESP 24–41; TEMP 36.6; O2SAT 82–100; BMI 41.0
--- NOTE | 2022-08-29 16:36 | DI.RAD.S_ITS ---
PROCEDURE: XR CHEST 1V INDICATIONS: SOB TECHNIQUE: One view of the chest was acquired. COMPARISON: [facility], CR, XR CHEST 1V, 07/16/2022, 12:09. FINDINGS: Surgical changes and devices: Dual lead left-sided transvenous pacemaker. Monitoring wires. Lungs and pleura: Low lung volumes with hazy interstitial thickening bilaterally. No focal consolidations or effusions. Mediastinum: Mild cardiomegaly and indistinct central vessels. Normal aortic contour. Bones and chest wall: No suspicious bony lesions. Overlying soft tissues appear unremarkable. IMPRESSION: 1. Findings suggest central vascular and mild interstitial congestion. Correlate with BNP. 2. Interstitial thickening can also be seen in viral pneumonitis. 3. Stable cardiomegaly. Dictated by: Azalea Coleman M.D. on 08/29/2022 at 17:01 Approved by: Azalea Coleman M.D. on 08/29/2022 at 17:03
--- NOTE | 2022-08-29 16:39 | ED_ITS ---
HPI - General Adult General Chief complaint: Shortness of Breath/Dyspnea Stated complaint: SOB sunday/ [place] Time Seen by Provider: 08/29/22 16:31 History of Present Illness HPI narrative: 57-year-old female daily smoker with history of COPD on home oxygen at 3 L presents by EMS with worsening shortness of breath over the past 3-4 days. She denies any runny nose, sore throat and has had a harsh wet sounding cough she states for many years and it is no different than normal. She becomes more short of breath with exertion and lying flat and admits that she is been using her oxygen more often than normal. She denies nausea, vomiting or diarrhea. She is had no recent travel, change in medications, doses or diet. Related Data Home Medications Medication Instructions Recorded Confirmed albuterol sulfate 90 mcg/actuation 2 puff inhalation QID PRN 07/17/22 08/29/22 aerosol inhaler (Ventolin HFA) Shortness Of Breath amiodarone 200 mg tablet 100 mg PO DAILY 07/17/22 08/29/22 apixaban 5 mg tablet (Eliquis) 5 mg PO BID 07/17/22 08/29/22 furosemide 40 mg tablet 80 mg PO DAILY 07/17/22 08/29/22 lisinopril 5 mg tablet 5 mg PO DAILY 07/17/22 08/29/22 spironolactone 25 mg tablet 25 mg PO DAILY 07/17/22 08/29/22 albuterol sulfate 90 mcg/actuation 2 inh inhalation Q4H PRN Shortness 08/29/22 08/29/22 breath activated powder inhaler Of Breath (ProAir RespiClick) dextromethorphan-guaifenesin 30 1 tab PO BEDTIME 08/29/22 08/29/22 mg-600 mg tablet extended [id number] hr (Mucinex DM) methocarbamol 500 mg tablet 500 mg PO TID PRN Muscle Spasm 08/29/22 08/29/22 metoprolol succinate 25 mg 25 mg PO BID 08/29/22 08/29/22 tablet,extended release 24 hr multivitamin 1 tab PO DAILY 08/29/22 08/29/22 promethazine 25 mg tablet 25 mg PO Q6H PRN Nausea 08/29/22 08/29/22 Previous Rx's Medication Instructions Recorded glipizide 5 mg tablet, extended 5 mg PO DAILY #30 tabs 07/20/22 release 24 hr (Glucotrol XL) oxycodone 5 mg tablet 5 mg PO Q4HR PRN pain #20 tabs 07/20/22 Allergies Allergy/AdvReac Type Severity Reaction Status Date / Time bee pollen Allergy Severe Anaphylaxis Verified 07/20/22 10:43 Fish Containing Products Allergy Severe Anaphylaxis Verified 07/19/22 13:29 shellfish derived Allergy Severe Anaphylaxis Verified 07/20/22 10:43 acetaminophen [From Midol] Allergy Verified 06/28/21 13:33 codeine Allergy Verified 06/28/21 13:34 erythromycin base Allergy Verified 06/28/21 13:34 iodine Allergy Rash Verified 07/19/22 13:32 latex Allergy Rash Verified 07/19/22 13:29 pamabrom [From Midol] Allergy Verified 06/28/21 13:33 doxycycline AdvReac Vomiting Verified 07/20/22 10:43 Review of Systems Review of Systems Narrative: GENERAL: see HPI. HEENT: Denies sinus pain, ear pain, sore throat, difficulty swallowing, dizziness. RESPIRATORY: see HPI CARDIOVASCULAR: see HPI GASTROINTESTINAL: Denies nausea, vomiting, abdominal pain, diarrhea, constipation, melena. : Denies dysuria, frequency, incontinence, hematuria, urinary retention. MUSCULOSKELETAL: denies weakness, joint pain, or bony pain SKIN: Denies rash, skin lesions, or other NEUROLOGIC: Denies weakness, headache, numbness, change in speech, confusion, seizures, incoordination. PSYCHIATRIC: No concerning psychosocial issues. 12 point review of systems is negative except for those stated above Patient History Medical History COPD (chronic obstructive pulmonary disease) Social History household members: spouse lives independently: Yes Smoking Status: Current every day smoker alcohol intake: former Smoking Status: Current every day smoker Substance Use Type: does not use Exam Narrative Exam Narrative: GENERAL: [57] year old patient appears stated age. Well-developed patient, in mild distress. HEAD: Atraumatic. Normocephalic. EYES: Pupils equal round and reactive. Extraocular motions intact. No scleral icterus. No injection or drainage. ENT: Nose without bleeding, purulent drainage. Throat without erythema, tonsillar hypertrophy or exudate. Airway patent. NECK: Trachea midline. Non tender CARDIOVASCULAR: Irregular rhythm RESPIRATORY: prolonged expiratory phase with decreased breath sounds throughout, perhaps faint crackles in bilateral bases GASTROINTESTINAL: Abdomen soft, non-tender, nondistended. EXTREMITIES: No edema or joint tenderness. BACK: Nontender without deformity or crepitance. No flank tenderness. NEURO: AOx3. SKIN: No rash or erythema of visible areas Initial Vital Signs Initial Vital Signs: Vital Signs Pulse Rate 44 L 08/29/22 16:39 Pulse Oximetry 98 08/29/22 16:39 Course Orders Ordered: Acetaminophen (Acetaminophen 325 Mg Tablet) 650 mg PO Q6H PRN PRN Reason: Fever/Mild Pain (1-3) Albuterol (Albuterol 2.5 Mg/3 Ml Neb (Adult)) 2.5 mg INH [id number] PRN PRN Reason: Shortness Of Breath Last Admin: 08/30/22 01:55 Dose: 2.5 mg Documented By: RICHARD Albuterol/Ipratropium (Albuterol/Ipratropium 3 Ml Ampul) 3 ml INH [id number] [facility] Last Admin: 08/29/22 23:00 Dose: Not Given Documented By: RICHARD Amiodarone HCl (Amiodarone 200 Mg Tablet) 100 mg PO DAILY [facility] Apixaban (Apixaban 5 Mg Tablet) 5 mg PO BID [facility] Last Admin: 08/29/22 22:36 Dose: 5 mg Documented By: AM Budesonide (Budesonide 0.5 Mg/2 Ml Neb) 0.5 mg INH RTBID BR[place]ON Dextrose (Dextrose 50 % In Water 25 Gm/50 Ml Syringe) 25 gm IV PRN PRN PRN Reason: Hypoglycemia Furosemide (Furosemide 40 Mg/4 Ml Vial) 40 mg IV Q12HR [facility] Last Admin: 08/30/22 00:54 Dose: 40 mg Documented By: AM Azithromycin 500 mg/ Dextrose 250 mls @ 250 mls/hr IV Q24H [facility] Last Admin: 08/29/22 22:36 Dose: 250 mls/hr Documented By: AM Influenza Virus Vaccine (Influenza Vaccine Qiv 0.5 Ml Syringe) 0.5 ml IM .ONCE ONE Stop: 08/30/22 09:01 Insulin Glargine (Insulin Glargine 100 Unit/Ml 3ml Pen) 10 unit SUBCUT BEDTIME [facility] Last Admin: 08/29/22 22:44 Dose: 10 unit Documented By: AM Co-signed By: TRACI Insulin Human Lispro (Insulin Lispro 100 Unit/Ml 3ml Vial) 0 unit SUBCUT [facility]; Protocol Last Admin: 08/29/22 22:39 Dose: 7 unit Documented By: AM Co-signed By: TRACI Lisinopril (Lisinopril 5 Mg Tablet) 5 mg PO DAILY [facility] Metoprolol Succinate (Metoprolol Er 50 Mg Tablet) 25 mg PO BID [facility] Last Admin: 08/29/22 22:37 Dose: 25 mg Documented By: AM Montelukast Sodium (Montelukast 10 Mg Tablet) 10 mg PO DAILY [facility] Naloxone HCl (Naloxone 0.4 Mg/Ml Vial) 0.2 mg IV Q2MIN PRN PRN Reason: Opiate Reversal Ondansetron HCl (Ondansetron 4 Mg/2 Ml Inj) 4 mg IV Q8HR PRN PRN Reason: Nausea And Vomiting Prednisone (Prednisone 20 Mg Tablet) 40 mg PO DAILY [facility] Discontinued Medications Furosemide (Furosemide 40 Mg/4 Ml Vial) 40 mg IV NOW ONE Stop: 08/29/22 18:43 Last Admin: 08/29/22 18:55 Dose: 40 mg Documented By: GLORIA Methylprednisolone (Methylprednisolone 125 Mg/2 Ml Vial) 125 mg IV NOW ONE Stop: 08/29/22 16:36 Last Admin: 08/29/22 18:22 Dose: 125 mg Documented By: PILI Metoprolol Succinate (Metoprolol Er 50 Mg Tablet) 100 mg PO BID [facility] Last Admin: 08/29/22 23:03 Dose: Not Given Documented By: AM Consultations Consultation #1: discussed with Dr. Burkett. Recommends diuresis, admission here at [facility]. NO need for transfer Vital Signs Vital signs: Vital Signs - 8 hr 08/29/22 16:50 08/29/22 16:39 08/29/22 16:42 Pulse Rate 80 44 L 80 Respiratory Rate 28 H 28 H Blood Pressure 93/54 L Pulse Oximetry 99 98 98 Oxygen Delivery Method Nasal Cannula Oxygen Flow Rate 3 08/29/22 16:42 08/29/22 16:45 08/29/22 16:45 Pulse Rate 80 Respiratory Rate 27 H Blood Pressure 76/42 L 93/54 L Pulse Oximetry 96 Oxygen Delivery Method Oxygen Flow Rate 08/29/22 17:00 08/29/22 17:01 08/29/22 17:01 Pulse Rate 83 80 Respiratory Rate 29 H 33 H Blood Pressure 112/54 L Pulse Oximetry 93 94 Oxygen Delivery Method Oxygen Flow Rate 08/29/22 17:06 08/29/22 17:06 08/29/22 17:10 Pulse Rate 82 82 Respiratory Rate 28 H 29 H Blood Pressure 115/58 L Pulse Oximetry 93 96 Oxygen Delivery Method Oxygen Flow Rate 08/29/22 17:10 08/29/22 17:15 08/29/22 17:15 Pulse Rate 96 H Respiratory Rate 29 H Blood Pressure 110/53 L 96/54 L Pulse Oximetry 96 Oxygen Delivery Method Oxygen Flow Rate 08/29/22 17:21 08/29/22 17:21 08/29/22 17:26 Pulse Rate 86 Respiratory Rate 26 H Blood Pressure 100/49 L 104/52 L Pulse Oximetry 96 Oxygen Delivery Method Oxygen Flow Rate 08/29/22 17:26 08/29/22 17:30 08/29/22 17:30 Pulse Rate 81 78 Respiratory Rate 33 H 35 H Blood Pressure 104/48 L Pulse Oximetry 98 98 Oxygen Delivery Method Oxygen Flow Rate 08/29/22 17:36 08/29/22 17:36 08/29/22 17:38 Pulse Rate 81 80 Respiratory Rate 35 H 29 H Blood Pressure 72/43 L Pulse Oximetry 97 96 Oxygen Delivery Method Oxygen Flow Rate 08/29/22 17:38 08/29/22 17:40 08/29/22 17:40 Pulse Rate 84 Respiratory Rate 36 H Blood Pressure 83/51 L 71/46 L Pulse Oximetry 96 Oxygen Delivery Method Oxygen Flow Rate 08/29/22 17:42 08/29/22 17:42 08/29/22 17:45 Pulse Rate 93 H 82 Respiratory Rate 35 H 33 H Blood Pressure 72/43 L Pulse Oximetry 97 97 Oxygen Delivery Method Nasal Cannula Oxygen Flow Rate 08/29/22 17:46 08/29/22 17:46 08/29/22 17:48 Pulse Rate 86 Respiratory Rate 28 H Blood Pressure 102/71 150/71 H Pulse Oximetry 82 L Oxygen Delivery Method Oxygen Flow Rate 08/29/22 17:48 08/29/22 17:50 08/29/22 17:50 Pulse Rate 94 H 82 Respiratory Rate 24 29 H Blood Pressure 130/60 Pulse Oximetry 100 97 Oxygen Delivery Method Oxygen Flow Rate 08/29/22 17:55 08/29/22 17:55 08/29/22 18:00 Pulse Rate 84 Respiratory Rate 25 H Blood Pressure 109/53 L 116/66 Pulse Oximetry 94 Oxygen Delivery Method Oxygen Flow Rate 08/29/22 18:00 08/29/22 18:05 08/29/22 18:06 Pulse Rate 79 77 78 Respiratory Rate 29 H 35 H 39 H Blood Pressure Pulse Oximetry 96 98 Oxygen Delivery Method Oxygen Flow Rate 08/29/22 18:06 08/29/22 18:10 08/29/22 18:10 Pulse Rate 78 Respiratory Rate 41 H Blood Pressure 132/62 141/61 H Pulse Oximetry 95 Oxygen Delivery Method Oxygen Flow Rate 08/29/22 18:15 08/29/22 18:15 08/29/22 18:20 Pulse Rate 84 Respiratory Rate 30 H Blood Pressure 126/60 132/74 Pulse Oximetry 94 Oxygen Delivery Method Oxygen Flow Rate 08/29/22 18:20 08/29/22 18:25 08/29/22 18:26 Pulse Rate 82 73 Respiratory Rate 32 H 31 H Blood Pressure 165/108 H Pulse Oximetry 98 97 Oxygen Delivery Method Oxygen Flow Rate 08/29/22 18:26 08/29/22 18:30 08/29/22 18:30 Pulse Rate 85 83 Respiratory Rate 29 H 25 H Blood Pressure 158/85 H Pulse Oximetry 99 98 Oxygen Delivery Method Oxygen Flow Rate 08/29/22 18:35 08/29/22 18:35 08/29/22 18:40 Pulse Rate 79 Respiratory Rate 25 H Blood Pressure 140/67 137/70 Pulse Oximetry 98 Oxygen Delivery Method Oxygen Flow Rate 08/29/22 18:40 08/29/22 18:45 08/29/22 18:46 Pulse Rate 86 80 83 Respiratory Rate 24 28 H 36 H Blood Pressure Pulse Oximetry 99 98 95 Oxygen Delivery Method Oxygen Flow Rate 08/29/22 18:46 08/29/22 18:50 08/29/22 18:50 Pulse Rate 74 Respiratory Rate 25 H Blood Pressure 137/78 143/76 H Pulse Oximetry 99 Oxygen Delivery Method Oxygen Flow Rate 08/29/22 18:55 08/29/22 18:55 08/29/22 19:00 Pulse Rate 83 75 Respiratory Rate 40 H 24 Blood Pressure 137/68 Pulse Oximetry 97 97 Oxygen Delivery Method Oxygen Flow Rate 08/29/22 19:01 08/29/22 19:01 08/29/22 19:05 Pulse Rate 80 Respiratory Rate 26 H Blood Pressure 125/59 L 132/54 L Pulse Oximetry 98 Oxygen Delivery Method Oxygen Flow Rate 08/29/22 19:05 Pulse Rate 93 H Respiratory Rate 28 H Blood Pressure Pulse Oximetry 97 Oxygen Delivery Method Oxygen Flow Rate Medical Decision Making Lab Data 08/30/22 04:51 08/30/22 04:51 Labs: Lab Results 08/29/22 08/29/22 08/29/22 Range/Units 17:10 17:16 17:16 WBC 10.2 (4.5-11.0) X10^3/uL RBC 4.48 (4.0-5.2) X10^6/uL Hgb 14.5 (12.0-16.0) g/dL Hct 42.1 (36-46) % MCV 93.9 (80-100) fL MCH 32.5 (26-34) PG MCHC 34.6 (30-36) % RDW 14.8 (11.6-14.8) % Plt Count 232 (150-400) X10^3/uL Neut % (Auto) 62.0 (50-75) % Lymph % (Auto) 26.3 (25-40) % [place] % (Auto) 9.6 (3-14) % Eos % (Auto) 1.1 L (2-4) % Baso % (Auto) 1.0 (0-2) % Neut # (Auto) 6300 (7694-6755) /uL Lymph # (Auto) 2700 (4335-6950) /uL [place] # (Auto) 1000 H (0-900) /uL Eos # (Auto) 100 (0-450) /uL Baso # (Auto) 100 (0-100) /uL PT 15.5 H (10.1-12.7) SECONDS INR 1.3 (0.9-1.3) APTT 35 (26-36) SECONDS ABG pH 7.42 (7.35-7.45) ABG pCO2 46.9 H (35-45) mmHg ABG pO2 70 L (80-100) mmHg ABG HCO3 31 H (23-27) mmol/L ABG Total CO2 32 H (23-27) mmol/L ABG O2 Saturation 94 L (95-100) % ABG Base Excess 6.0 H (-2-3) mmol/L FiO2 32 Sodium (137-145) mmol/L Potassium (3.4-5.1) mmol/L Chloride (98-107) mmol/L Carbon Dioxide (22-32) mmol/L BUN (7-17) mg/dL Creatinine (0.52-1.04) mg/dL Estimated GFR (>60) mL/min BUN/Creatinine Ratio (6-22) Glucose (70-100) mg/dL Lactate (0.7-2.1) mmol/L Calcium (8.4-10.2) mg/dL Magnesium (1.6-2.3) mg/dL Total Bilirubin (0.2-1.3) mg/dL AST (14-36) IU/L ALT (<35) IU/L Alkaline Phosphatase (38-126) U/L Total Creatine Kinase (30-135) U/L CK-MB (CK-2) CK-MB (CK-2) Rel Index Troponin I (0.01-0.034) ng/mL NT-Pro-B Natriuret Pep (<125) pg/mL Total Protein (6.3-8.2) g/dL Albumin (3.5-5.0) g/dL Globulin (1.7-4.1) g/dL Albumin/Globulin Ratio (1.0-2.8) Lipase (23-300) U/L Procalcitonin (<0.5) ng/mL Chlamy pneumoniae PCR (Not Detect) Adenovirus (PCR) (Not Detect) B. pertussis DNA (PCR) (Not Detecte) B.parapertussis DNA PCR (Not Detecte) Coronavirus OC43 (PCR) (Not Detect) Coronavirus HKU1 (PCR) (Not Detect) Coronavirus 229E (PCR) (Not Detect) SARS-CoV-2 (PCR) (Not Detecte) Coronavirus NL63 (PCR) (Not Detect) Human Metapneumovir PCR (Not Detect) Influenza Type A (PCR) (Not Detect) Influenza Type B (PCR) (Not Detect) M. pneumoniae (PCR) (Not Detect) Parainfluenza 1 (PCR) (Not Detect) Parainfluenza 2 (PCR) (Not Detect) Parainfluenza 3 (PCR) (Not Detect) Parainfluenza 4 (PCR) (Not Detect) RSV (PCR) (Not Detect) Entero/Rhino (PCR) (Not Detect) 08/29/22 08/29/22 08/29/22 Range/Units 17:16 17:16 18:35 WBC (4.5-11.0) X10^3/uL RBC (4.0-5.2) X10^6/uL Hgb (12.0-16.0) g/dL Hct (36-46) % MCV (80-100) fL MCH (26-34) PG MCHC (30-36) % RDW (11.6-14.8) % Plt Count (150-400) X10^3/uL Neut % (Auto) (50-75) % Lymph % (Auto) (25-40) % [place] % (Auto) (3-14) % Eos % (Auto) (2-4) % Baso % (Auto) (0-2) % Neut # (Auto) (6316-1884) /uL Lymph # (Auto) (7480-6397) /uL [place] # (Auto) (0-900) /uL Eos # (Auto) (0-450) /uL Baso # (Auto) (0-100) /uL PT (10.1-12.7) SECONDS INR (0.9-1.3) APTT (26-36) SECONDS ABG pH (7.35-7.45) ABG pCO2 (35-45) mmHg ABG pO2 (80-100) mmHg ABG HCO3 (23-27) mmol/L ABG Total CO2 (23-27) mmol/L ABG O2 Saturation (95-100) % ABG Base Excess (-2-3) mmol/L FiO2 Sodium 140 (137-145) mmol/L Potassium 3.4 (3.4-5.1) mmol/L Chloride 100 (98-107) mmol/L Carbon Dioxide 35 H (22-32) mmol/L BUN 26 H (7-17) mg/dL Creatinine 1.29 H (0.52-1.04) mg/dL Estimated GFR 48 L (>60) mL/min BUN/Creatinine Ratio 20.2 (6-22) Glucose 89 (70-100) mg/dL Lactate 1.0 (0.7-2.1) mmol/L Calcium 9.0 (8.4-10.2) mg/dL Magnesium 1.9 (1.6-2.3) mg/dL Total Bilirubin 0.5 (0.2-1.3) mg/dL AST 20 (14-36) IU/L ALT 19 (<35) IU/L Alkaline Phosphatase 81 (38-126) U/L Total Creatine Kinase < 20 L (30-135) U/L CK-MB (CK-2) TNP CK-MB (CK-2) Rel Index TNP Troponin I 0.013 (0.01-0.034) ng/mL NT-Pro-B Natriuret Pep 1250 H (<125) pg/mL Total Protein 6.7 (6.3-8.2) g/dL Albumin 3.8 (3.5-5.0) g/dL Globulin 2.9 (1.7-4.1) g/dL Albumin/Globulin Ratio 1.3 (1.0-2.8) Lipase 80 (23-300) U/L Procalcitonin 0.06 (<0.5) ng/mL Chlamy pneumoniae PCR Not detected (Not Detect) Adenovirus (PCR) Not detected (Not Detect) B. pertussis DNA (PCR) Not detected (Not Detecte) B.parapertussis DNA PCR Not detected (Not Detecte) Coronavirus OC43 (PCR) Not detected (Not Detect) Coronavirus HKU1 (PCR) Not detected (Not Detect) Coronavirus 229E (PCR) Not detected (Not Detect) SARS-CoV-2 (PCR) Not detected (Not Detecte) Coronavirus NL63 (PCR) Not detected (Not Detect) Human Metapneumovir PCR Not detected (Not Detect) Influenza Type A (PCR) Not detected (Not Detect) Influenza Type B (PCR) Not detected (Not Detect) M. pneumoniae (PCR) Not detected (Not Detect) Parainfluenza 1 (PCR) Not detected (Not Detect) Parainfluenza 2 (PCR) Not detected (Not Detect) Parainfluenza 3 (PCR) Not detected (Not Detect) Parainfluenza 4 (PCR) Not detected (Not Detect) RSV (PCR) Not detected (Not Detect) Entero/Rhino (PCR) Not detected (Not Detect) Imaging Data Chest x-ray: Radiologist's Impression: IMPRESSION:? ? 1. Findings suggest central vascular and mild interstitial congestion.? Correlate with BNP. ? 2. Interstitial thickening can also be seen in viral pneumonitis. ? 3. Stable cardiomegaly.? ? ? Dictated by: Azalea Coleman M.D. on 08/29/2022 at 17:01 ? ? Approved by: Azalea Coleman M.D. on 08/29/2022 at 17:03 ? MDM Narrative Medical decision making narrative: Patient with increased work of breathing over the past few days, increased oxygen demand including flow rate and duration of use. Multiple diagnoses considered, infectious process, cardiac etiology, pacemaker dysfunction etc.. Pacemaker was interrogated without any events noted. Consultation with cardiology (Dr. Burkett) see details above. Patient requires hospitalization for further treatment and stabilization of condition, including echocardiogram. Discussed with both hospitalists (Dr. Chirinos and Leatha) who are happy to accept patient on their service. Patient understands and agrees with diagnosis and plan Discharge Plan Departure Patient Disposition: Admitted as Observation Clinical Impression: Acute CHF Admit Date/Time: 08/29/22 19:22 Admit Provider: Den Zhang
[2022-08-29 17:24] LABS: Add Manual Diff / Slide Review NO; Basophils Absolute Auto 100 /uL (0-100); Eosinophils Absolute Auto 100 /uL (0-450); Eosinophils Percent Auto 1.1 % (2-4); Hematocrit 42.1 % (36-46); Hemoglobin 14.5 g/dL (12.0-16.0); Lymphocytes Absolute Auto 2700 /uL (1100-4500); Lymphocytes Percent Auto 26.3 % (25-40); Mean Corpuscular HGB Conc 34.6 % (30-36); Mean Corpuscular Hemoglobin 32.5 PG (26-34); Mean Corpuscular Volume 93.9 fL (80-100); Monocytes Absolute Auto 1000 /uL (0-900); Monocytes Percent Auto 9.6 % (3-14); Neutrophils Absolute Auto 6300 /uL (1500-7000); Platelet Count 232 X10^3/uL (150-400); Red Blood Cell Count 4.48 X10^6/uL (4.0-5.2); Red Cell Distribution Width 14.8 % (11.6-14.8); White Blood Cell Count 10.2 X10^3/uL (4.5-11.0)
[2022-08-29 17:35] LABS: INR 1.3 (0.9-1.3); Prothrombin Time 15.5 SECONDS (10.1-12.7)
[2022-08-29 17:37] LABS: pH ABG 7.42 (7.35-7.45)
[2022-08-29 17:38] LABS: Fractionated Inspired Oxygen 32; HCO3 ABG 31 mmol/L (23-27); Oxygen Saturation ABG 94 % (95-100); PCO2 ABG 46.9 mmHg (35-45); PO2 ABG 70 mmHg (80-100); TCO2 ABG 32 mmol/L (23-27)
[2022-08-29 17:40] LABS: Alanine Aminotransferase 19 IU/L (<35); Albumin 3.8 g/dL (3.5-5.0); Albumin Globulin Ratio 1.3 (1.0-2.8); Alkaline Phosphatase 81 U/L (38-126); Aspartate Aminotransferase 20 IU/L (14-36); BUN Creatinine Ratio 20.2 (6-22); Bilirubin Total 0.5 mg/dL (0.2-1.3); Blood Urea Nitrogen 26 mg/dL (7-17); Carbon Dioxide 35 mmol/L (22-32); Chloride 100 mmol/L (98-107); Creatine Kinase < 20 U/L (30-135); Estimated Glomerular Filt Rate 48 mL/min (>60); Globulin 2.9 g/dL (1.7-4.1); Glucose 89 mg/dL (70-100); HEMOLYSIS < 15 (0-50); Lipase 80 U/L (23-300); Magnesium 1.9 mg/dL (1.6-2.3); Potassium 3.4 mmol/L (3.4-5.1); Sodium 140 mmol/L (137-145); Total Protein 6.7 g/dL (6.3-8.2)
[2022-08-29 17:51] LABS: NT-proBNP (BNP-Adult 18+) 1250 pg/mL (<125); Troponin I 0.013 ng/mL (0.01-0.034)
[2022-08-29 17:56] LABS: Procalcitonin 0.06 ng/mL (<0.5)
[2022-08-29] MEDS: methylPREDNISolone 125 MG/2 ML VIAL IV (18:22)
[2022-08-29] MEDS: FUROSEMIDE 40 MG/4 ML VIAL IV (18:55)
--- NOTE | 2022-08-29 19:48 | PM.HP.1 ---
History of Present Illness History of Present Illness Date Patient Seen: 08/29/22 Time Patient Seen: 20:00 Chief complaint: SOB tano/ Colt Narrative: ?Ms. Chong is a 57W with PMH COPD on 3L oxygen, smoker, CHFrEF, CAD s/p stents, s/p ppm/aicd, Type 2 DM, afib who presents to the hospital with shortness of breath. She has noted a chronic cough. It is not worse than her usual. She brings up clear phlegm. She has noted no chest pain. She thinks her weight has gone up, but she has no scale to measure this. She has difficulty with exertion and lying flat which worsen her shortness of breath. She is using her oxygen more frequently. She is not urinating very much. She was admitted to the hospital last month with a similar presentation and ordered for diuresis and for treatment of COPD, and she had ECHO with EF 25-30%. She has a history of poor adherence to CHF diet. She has been referred to hospice in the past by her PCP, but has remained full code. In the ED workup was done, vitals notable for afebrlie, heart rate in the 70s-80s, respiratory rate in 20s-30s, blood pressure 70-100s/40s-50s. Sats in the 90s on 3L. Labs reviewed by me and notable for WBC 10.2, hgb 14.5, plts 232. Na 140, k 3.4, creatinine 1.29. INR 1.3. ABG pH 7.42, pCO2 46.9. Lactate 1.0. Trop 0.013. BNP 1250. Procal 0.06. Chest xray reviewed by me and showed cardiomegaly and interstitial congestion. She was ordered for lasix and steroids and nebulizers and admitte for further treatment. [facility] Medical History COPD (chronic obstructive pulmonary disease) Social History household members: spouse lives independently: Yes Smoking Status: Current every day smoker alcohol intake: former Meds Home Medications and Allergies Home Medications Medication Instructions Recorded Confirmed Type albuterol sulfate 90 mcg/actuation 2 puff inhalation QID PRN 07/17/22 08/29/22 History aerosol inhaler (Ventolin HFA) Shortness Of Breath amiodarone 200 mg tablet 100 mg PO DAILY 07/17/22 08/29/22 History apixaban 5 mg tablet (Eliquis) 5 mg PO BID 07/17/22 08/29/22 History furosemide 40 mg tablet 80 mg PO DAILY 07/17/22 08/29/22 History lisinopril 5 mg tablet 5 mg PO DAILY 07/17/22 08/29/22 History spironolactone 25 mg tablet 25 mg PO DAILY 07/17/22 08/29/22 History glipizide 5 mg tablet, extended 5 mg PO DAILY #30 tabs 07/20/22 08/29/22 Rx release 24 hr (Glucotrol XL) oxycodone 5 mg tablet 5 mg PO Q4HR PRN pain #20 tabs 07/20/22 08/29/22 Rx albuterol sulfate 90 mcg/actuation 2 inh inhalation Q4H PRN Shortness 08/29/22 08/29/22 History breath activated powder inhaler Of Breath (ProAir RespiClick) dextromethorphan-guaifenesin 30 1 tab PO BEDTIME 08/29/22 08/29/22 History mg-600 mg tablet extended hr (Mucinex DM) methocarbamol 500 mg tablet 500 mg PO TID PRN Muscle Spasm 08/29/22 08/29/22 History metoprolol succinate 25 mg 25 mg PO BID 08/29/22 08/29/22 History tablet,extended release 24 hr multivitamin 1 tab PO DAILY 08/29/22 08/29/22 History promethazine 25 mg tablet 25 mg PO Q6H PRN Nausea 08/29/22 08/29/22 History Allergies Allergy/AdvReac Type Severity Reaction Status Date / Time bee pollen Allergy Severe Anaphylaxis Verified 07/20/22 10:43 Fish Containing Products Allergy Severe Anaphylaxis Verified 07/19/22 13:29 shellfish derived Allergy Severe Anaphylaxis Verified 07/20/22 10:43 acetaminophen [From Midol] Allergy Verified 06/28/21 13:33 codeine Allergy Verified 06/28/21 13:34 erythromycin base Allergy Verified 06/28/21 13:34 iodine Allergy Rash Verified 07/19/22 13:32 latex Allergy Rash Verified 07/19/22 13:29 pamabrom [From Midol] Allergy Verified 06/28/21 13:33 doxycycline AdvReac Vomiting Verified 07/20/22 10:43 Review of Systems Review of Systems Narrative: 14 systems reviewed and negative aside from what is noted in HPI Exam Vital Signs (past 8 hours): - 08/29/22 16:50 08/29/22 16:39 08/29/22 16:42 Pulse Rate 80 44 L 80 Respiratory Rate 28 H 28 H Blood Pressure 93/54 L Pulse Oximetry 99 98 98 Oxygen Delivery Method Nasal Cannula Oxygen Flow Rate 3 08/29/22 16:42 08/29/22 16:45 08/29/22 16:45 Pulse Rate 80 Respiratory Rate 27 H Blood Pressure 76/42 L 93/54 L Pulse Oximetry 96 Oxygen Delivery Method Oxygen Flow Rate 08/29/22 17:00 08/29/22 17:01 08/29/22 17:01 Pulse Rate 83 80 Respiratory Rate 29 H 33 H Blood Pressure 112/54 L Pulse Oximetry 93 94 Oxygen Delivery Method Oxygen Flow Rate 08/29/22 17:06 08/29/22 17:06 08/29/22 17:10 Pulse Rate 82 82 Respiratory Rate 28 H 29 H Blood Pressure 115/58 L Pulse Oximetry 93 96 Oxygen Delivery Method Oxygen Flow Rate 08/29/22 17:10 08/29/22 17:15 08/29/22 17:15 Pulse Rate 96 H Respiratory Rate 29 H Blood Pressure 110/53 L 96/54 L Pulse Oximetry 96 Oxygen Delivery Method Oxygen Flow Rate 08/29/22 17:21 08/29/22 17:21 08/29/22 17:26 Pulse Rate 86 Respiratory Rate 26 H Blood Pressure 100/49 L 104/52 L Pulse Oximetry 96 Oxygen Delivery Method Oxygen Flow Rate 08/29/22 17:26 08/29/22 17:30 08/29/22 17:30 Pulse Rate 81 78 Respiratory Rate 33 H 35 H Blood Pressure 104/48 L Pulse Oximetry 98 98 Oxygen Delivery Method Oxygen Flow Rate 08/29/22 17:36 08/29/22 17:36 08/29/22 17:38 Pulse Rate 81 80 Respiratory Rate 35 H 29 H Blood Pressure 72/43 L Pulse Oximetry 97 96 Oxygen Delivery Method Oxygen Flow Rate 08/29/22 17:38 08/29/22 17:40 08/29/22 17:40 Pulse Rate 84 Respiratory Rate 36 H Blood Pressure 83/51 L 71/46 L Pulse Oximetry 96 Oxygen Delivery Method Oxygen Flow Rate 08/29/22 17:42 08/29/22 17:42 08/29/22 17:45 Pulse Rate 93 H 82 Respiratory Rate 35 H 33 H Blood Pressure 72/43 L Pulse Oximetry 97 97 Oxygen Delivery Method Nasal Cannula Oxygen Flow Rate 08/29/22 17:46 08/29/22 17:46 08/29/22 17:48 Pulse Rate 86 Respiratory Rate 28 H Blood Pressure 102/71 150/71 H Pulse Oximetry 82 L Oxygen Delivery Method Oxygen Flow Rate 08/29/22 17:48 08/29/22 17:50 08/29/22 17:50 Pulse Rate 94 H 82 Respiratory Rate 24 29 H Blood Pressure 130/60 Pulse Oximetry 100 97 Oxygen Delivery Method Oxygen Flow Rate 08/29/22 17:55 08/29/22 17:55 08/29/22 18:00 Pulse Rate 84 Respiratory Rate 25 H Blood Pressure 109/53 L 116/66 Pulse Oximetry 94 Oxygen Delivery Method Oxygen Flow Rate 08/29/22 18:00 08/29/22 18:05 08/29/22 18:06 Pulse Rate 79 77 78 Respiratory Rate 29 H 35 H 39 H Blood Pressure Pulse Oximetry 96 98 Oxygen Delivery Method Oxygen Flow Rate 08/29/22 18:06 08/29/22 18:10 08/29/22 18:10 Pulse Rate 78 Respiratory Rate 41 H Blood Pressure 132/62 141/61 H Pulse Oximetry 95 Oxygen Delivery Method Oxygen Flow Rate 08/29/22 18:15 08/29/22 18:15 08/29/22 18:20 Pulse Rate 84 Respiratory Rate 30 H Blood Pressure 126/60 132/74 Pulse Oximetry 94 Oxygen Delivery Method Oxygen Flow Rate 08/29/22 18:20 08/29/22 18:25 08/29/22 18:26 Pulse Rate 82 73 Respiratory Rate 32 H 31 H Blood Pressure 165/108 H Pulse Oximetry 98 97 Oxygen Delivery Method Oxygen Flow Rate 08/29/22 18:26 08/29/22 18:30 08/29/22 18:30 Pulse Rate 85 83 Respiratory Rate 29 H 25 H Blood Pressure 158/85 H Pulse Oximetry 99 98 Oxygen Delivery Method Oxygen Flow Rate 08/29/22 18:35 08/29/22 18:35 08/29/22 18:40 Pulse Rate 79 Respiratory Rate 25 H Blood Pressure 140/67 137/70 Pulse Oximetry 98 Oxygen Delivery Method Oxygen Flow Rate 08/29/22 18:40 08/29/22 18:45 08/29/22 18:46 Pulse Rate 86 80 83 Respiratory Rate 24 28 H 36 H Blood Pressure Pulse Oximetry 99 98 95 Oxygen Delivery Method Oxygen Flow Rate 08/29/22 18:46 08/29/22 18:50 08/29/22 18:50 Pulse Rate 74 Respiratory Rate 25 H Blood Pressure 137/78 143/76 H Pulse Oximetry 99 Oxygen Delivery Method Oxygen Flow Rate 08/29/22 18:55 08/29/22 18:55 08/29/22 19:00 Pulse Rate 83 75 Respiratory Rate 40 H 24 Blood Pressure 137/68 Pulse Oximetry 97 97 Oxygen Delivery Method Oxygen Flow Rate 08/29/22 19:01 08/29/22 19:01 08/29/22 19:05 Pulse Rate 80 Respiratory Rate 26 H Blood Pressure 125/59 L 132/54 L Pulse Oximetry 98 Oxygen Delivery Method Oxygen Flow Rate 08/29/22 19:05 Pulse Rate 93 H Respiratory Rate 28 H Blood Pressure Pulse Oximetry 97 Oxygen Delivery Method Oxygen Flow Rate Oxygen Delivery Method Nasal Cannula Oxygen Flow Rate 3 Narrative Exam Narrative: GEN: in respiratory distress HEENT: moist mucous membranes, PERRL NECK: trachea midline, no JVD PULM: decreased air sound bilaterally, with bilateral crackles CV: irregular, no murmurs ABD: soft, nontender, nondistended, no organomegaly, normal bowel sounds EXT: warm and well perfused with no edema NEURO: awake, alert, oriented, no focal deficits Objective Labs 08/29/22 17:16 08/29/22 17:16 Labs: Laboratory Results - last 24 hr 08/29/22 08/29/22 08/29/22 17:10 17:16 17:16 WBC 10.2 RBC 4.48 Hgb 14.5 Hct 42.1 MCV 93.9 MCH 32.5 MCHC 34.6 RDW 14.8 Plt Count 232 Neut % (Auto) 62.0 Lymph % (Auto) 26.3 Major % (Auto) 9.6 Eos % (Auto) 1.1 L Baso % (Auto) 1.0 Neut # (Auto) 6300 Lymph # (Auto) 2700 Major # (Auto) 1000 H Eos # (Auto) 100 Baso # (Auto) 100 PT 15.5 H INR 1.3 APTT 23 L ABG pH 7.42 ABG pCO2 46.9 H ABG pO2 70 L ABG HCO3 31 H ABG Total CO2 32 H ABG O2 Saturation 94 L ABG Base Excess 6.0 H FiO2 32 Sodium Potassium Chloride Carbon Dioxide BUN Creatinine Estimated GFR BUN/Creatinine Ratio Glucose Lactate Calcium Magnesium Total Bilirubin AST ALT Alkaline Phosphatase Total Creatine Kinase CK-MB (CK-2) CK-MB (CK-2) Rel Index Troponin I NT-Pro-B Natriuret Pep Total Protein Albumin Globulin Albumin/Globulin Ratio Lipase Procalcitonin 08/29/22 08/29/22 17:16 17:16 WBC RBC Hgb Hct MCV MCH MCHC RDW Plt Count Neut % (Auto) Lymph % (Auto) Major % (Auto) Eos % (Auto) Baso % (Auto) Neut # (Auto) Lymph # (Auto) Major # (Auto) Eos # (Auto) Baso # (Auto) PT INR APTT ABG pH ABG pCO2 ABG pO2 ABG HCO3 ABG Total CO2 ABG O2 Saturation ABG Base Excess FiO2 Sodium 140 Potassium 3.4 Chloride 100 Carbon Dioxide 35 H BUN 26 H Creatinine 1.29 H Estimated GFR 48 L BUN/Creatinine Ratio 20.2 Glucose 89 Lactate 1.0 Calcium 9.0 Magnesium 1.9 Total Bilirubin 0.5 AST 20 ALT 19 Alkaline Phosphatase 81 Total Creatine Kinase < 20 L CK-MB (CK-2) TNP CK-MB (CK-2) Rel Index TNP Troponin I 0.013 NT-Pro-B Natriuret Pep 1250 H Total Protein 6.7 Albumin 3.8 Globulin 2.9 Albumin/Globulin Ratio 1.3 Lipase 80 Procalcitonin 0.06 Assessment & Plan Assessment & Plan narrative: 1. Acute on chronic respiratory failure secondary to: ---acute on chronic CHFrEF ---possible acute COPD exacerbation -patient has history of dietary nonadherence -symptoms are more consistent with acute CHF exacerbation with elevated BNP, fluid evidence on chest xray -ordered for IV lasix, low salt diet -continue metoprolol, lisinopril -for now hold spironolactone -echo done just one month ago showing severe global hypokinesis and EF 25-30%, no indication to repeat echo for now -for copd exacerbation will order steroids, azithromycin, and nebs 2. CAD s/p stents s/p ppm/aicd -continue lisinopril, eliquis, metoprolol 3. Chronic atrial fibrillation -continue eliquis, metoprolol, and amiodarone 4. CKD stage 2 -creatinine 1.29, near baseline -trend daily 5. Morbid obesity -BMI 41, will affect illness healing 6. Type 2 Diabetes -hold oral medications -ordered insulin sliding scale -start lantus as she is hyperglycemic likely secondary to steroids I have discussed plan and obtained history from the patient. I have discussed plan of care with ED physician and bedside nurse. I have reviewed labs, chest xray. CODE: Full Proxy: Scottie Lemonsfrederick,
[2022-08-29 19:49] LABS: Adenovirus Not Detected (Not Detect); B. parapertussis Not Detected (Not Detecte); Bordetella pertussis Not Detected (Not Detecte); Chlamydophila pneumoniae Not Detected (Not Detect); Coronavirus 229E Not Detected (Not Detect); Coronavirus HKU1 Not Detected (Not Detect); Coronavirus NL 63 Not Detected (Not Detect); Coronavirus OC43 Not Detected (Not Detect); Human Metapneumovirus Not Detected (Not Detect); Human Rhinovirus/Enterovirus Not Detected (Not Detect); Influenza A Not Detected (Not Detect); Influenza B Not Detected (Not Detect); Mycoplasma pneumoniae Not Detected (Not Detect); Parainfluenza Virus 1 Not Detected (Not Detect); Parainfluenza Virus 2 Not Detected (Not Detect); Parainfluenza Virus 3 Not Detected (Not Detect); Parainfluenza Virus 4 Not Detected (Not Detect); Respiratory Syncytial Virus Not Detected (Not Detect); SARS- CoV-2 Not Detected (Not Detecte)
[2022-08-29 20:09] LABS: PTT Partial Thromboplastin Tim 35 SECONDS (26-36)
[2022-08-29 20:12] LABS: Appearance Urine UA CLEAR; Bilirubin Urine UA NEGATIVE (NEGATIVE); Color Urine UA YELLOW; Glucose Urine UA NEGATIVE (Negative); Ketones Urine UA NEGATIVE (NEGATIVE); Leukocyte Esterase Urine UA NEGATIVE (NEGATIVE); Nitrite Urine UA NEGATIVE (Negative); Occult Blood Urine UA NEGATIVE (Negative); Protein Urine UA NEGATIVE (Negative); Urobilinogen Urine UA 0.2 E.U./dL (0.2)
[2022-08-29 20:46] LABS: Bacteria Urine Occasional (0-1); Culture Indicated Urine Cult Not Indicated; RBC Urine None Seen (0-5/HPF); Squamous Epithelial Cell Urine 0-1 /HPF (0-5/HPF); WBC Urine None Seen (0-5/HPF)
--- NOTE | 2022-08-29 21:10 | DI.ECHO.S_ITS ---
[facility] +---------+ [facility] +---------+ : : [address] : : : : [id number] : : : : Phone: [phone]+ Echocardiogram Report + + :Name: JOYA JOHNSON Study Date: 08/30/2022 Height: 64 in : :[facility] ReadingLocation: Weight: 239 lb : : Gender: Female BSA: 2.1 m2 : :: 1965 Age: 57 yrs BP: 111/57 mmHg: :Reason For Study: CHF EXACERBATION : :Ordering Physician: : :LORENA LAZCANO Performed By: Candie Myers : :Referring: LORENA LAZCANO : + + Interpretation Summary The ejection fraction is estimated to be 25-30%. There has been no significant change since the previous exam. Procedure: The study quality was technically limited. The study quality was technically adequate. Comparison is made with the echocardiogram of 07/17/2022. The patient had occasional PVCs during the exam. The heart rate ranged between 69-92 bpm during the study. Left Ventricle: The left ventricle is moderately dilated. Left ventricular wall thickness is at the upper limits of normal. The ejection fraction is estimated to be 25-30%. There has been no significant change since the previous exam. Right Ventricle: There is a pacemaker lead in the right ventricle. Atria: The left atrium is borderline dilated. There is a catheter/pacemaker lead seen in the right atrium. Right atrial size is normal. Pericardium/ Pleura There is no pericardial effusion. There is no pleural effusion. MMode/2D Measurements & Calculations LVIDd: 6.5 cm LA A2 area: 20.6 cm2 LVIDs: 5.5 cm LA A4 area: 21.1 cm2 FS: 14.4 % LA length (vol): 5.0 cm EPSS: 2.1 cm LA vol: 73.6 ml IVSd: 0.85 cm LA vol index: 34.9 ml/m2 LVPWd: 0.93 cm LV conner. diameter/BSA (cm/m^2): 3.1 LV sys. diameter/BSA (cm/m^2): 2.6 RA long axis: 4.5 cm RA area: 15.2 cm2 RA vol: 43.6 ml RA : 20.7 ml/m2 Reading Physician:01:28 PM
[2022-08-29] MEDS: AZITHROMYCIN 500 MG in DEXTROSE 5% IN WATER 250 ML 250 MG IV (22:36)
[2022-08-29] MEDS: APIXABAN 5 MG TABLET PO (22:36)
[2022-08-29] MEDS: METOPROLOL ER 50 MG TABLET 25 MG PO (22:37)
[2022-08-29] MEDS: INSULIN LISPRO 100 UNIT/ML 3ML VIAL SUBCUT (22:39)
[2022-08-29] MEDS: INSULIN GLARGINE 100 UNIT/ML 3ML PEN 10 UNIT SUBCUT (22:44)
[2022-08-30] VITALS (17 sets, daily range): BP systolic 111–125; BP diastolic 57–80; PULSE 52–80; RESP 16–24; TEMP 36–37.1; O2SAT 88–97
[2022-08-30] MEDS: FUROSEMIDE 40 MG/4 ML VIAL IV (00:54)
[2022-08-30] MEDS: ALBUTEROL 2.5 MG/3 ML NEB (ADULT) INH (01:55)
[2022-08-30 05:18] LABS: Add Manual Diff / Slide Review NO; Basophils Absolute Auto 0 /uL (0-100); Basophils Percent Auto 0.3 % (0-2); Eosinophils Absolute Auto 0 /uL (0-450); Hematocrit 42.8 % (36-46); Hemoglobin 14.5 g/dL (12.0-16.0); Lymphocytes Absolute Auto 500 /uL (1100-4500); Lymphocytes Percent Auto 6.3 % (25-40); Mean Corpuscular HGB Conc 33.8 % (30-36); Mean Corpuscular Hemoglobin 31.9 PG (26-34); Mean Corpuscular Volume 94.3 fL (80-100); Monocytes Absolute Auto 100 /uL (0-900); Monocytes Percent Auto 1.4 % (3-14); Neutrophils Absolute Auto 7900 /uL (1500-7000); Platelet Count 219 X10^3/uL (150-400); Red Blood Cell Count 4.54 X10^6/uL (4.0-5.2); Red Cell Distribution Width 14.5 % (11.6-14.8); White Blood Cell Count 8.6 X10^3/uL (4.5-11.0)
[2022-08-30 05:29] LABS: BUN Creatinine Ratio 22.6 (6-22); Blood Urea Nitrogen 28 mg/dL (7-17); Calcium 8.7 mg/dL (8.4-10.2); Carbon Dioxide 28 mmol/L (22-32); Chloride 98 mmol/L (98-107); Estimated Glomerular Filt Rate 50 mL/min (>60); Glucose 284 mg/dL (70-100); HEMOLYSIS < 15 (0-50); Magnesium 1.8 mg/dL (1.6-2.3); Potassium 3.6 mmol/L (3.4-5.1); Sodium 136 mmol/L (137-145)
[2022-08-30] MEDS: ALBUTEROL/IPRATROPIUM 3 ML AMPUL INH ×5 (07:11→22:57)
[2022-08-30] MEDS: BUDESONIDE 0.5 MG/2 ML NEB INH ×2 (07:11→19:20)
[2022-08-30] MEDS: AMIODARONE 200 MG TABLET 100 MG PO (08:18)
[2022-08-30] MEDS: APIXABAN 5 MG TABLET PO ×2 (08:20→21:12)
[2022-08-30] MEDS: MONTELUKAST 10 MG TABLET PO (08:20)
[2022-08-30] MEDS: predniSONE 20 MG TABLET 40 MG PO (08:21)
[2022-08-30] MEDS: METOPROLOL ER 50 MG TABLET 25 MG PO ×2 (08:21→21:12)
[2022-08-30] MEDS: INFLUENZA VACCINE QIV 0.5 ML SYRINGE IM (08:36)
[2022-08-30] MEDS: INSULIN LISPRO 100 UNIT/ML 3ML VIAL SUBCUT ×4 (08:41→21:27)
--- NOTE | 2022-08-30 09:43 | PC.NURSE ---
Addendum entered by Alexa Hayes R.N. 08/30/22 11:36: Soft BP, and c/o dizziness. provider aware. will give 1600 dose of lasix instead per orders. Addendum entered by Alexa Hayes R.N. 08/30/22 09:44: educated patient regarding low Na diet, pt strongly feels she needs to be on general diet. Original Note: changed diet to general diet. patient very upset when she gets her low Na diet and asked for lots of salt.
--- NOTE | 2022-08-30 10:16 | P.PN_ITS ---
Subjective Subjective Interval history: Patient says she is having alot of neck pain. Lungs still feel very tight and wheezy. BP soft today. Exam Vital Signs (past 8 hours): - 08/30/22 04:00 08/30/22 06:16 08/30/22 07:13 Temperature 96.8 F L Pulse Rate 52 L 78 Respiratory Rate 24 Blood Pressure 111/57 L 119/61 Pulse Oximetry 94 93 Oxygen Delivery Method Oximask Oxygen Flow Rate 3 3 08/30/22 07:58 Temperature 98 F Pulse Rate 80 Respiratory Rate 19 Blood Pressure 112/74 Pulse Oximetry 93 Oxygen Delivery Method Oxygen Flow Rate 3 Fraction of Inspired Oxygen 32 SaO2/FiO2 Ratio 290 Oxygen Delivery Method Oximask Oxygen Flow Rate 3 Narrative Exam Narrative: GEN: in mild resp distress HEENT: moist mucous membranes, PERRL NECK: trachea midline, no JVD PULM: diffuse wheezes CV: irregular, no murmurs ABD: soft, nontender, nondistended, no organomegaly, normal bowel sounds EXT: warm and well perfused with no edema NEURO: awake, alert, oriented, no focal deficits Objective Labs 08/30/22 04:51 08/30/22 04:51 Labs: Laboratory Results - last 24 hr 08/29/22 08/29/22 08/29/22 17:10 17:16 17:16 WBC 10.2 RBC 4.48 Hgb 14.5 Hct 42.1 MCV 93.9 MCH 32.5 MCHC 34.6 RDW 14.8 Plt Count 232 Neut % (Auto) 62.0 Lymph % (Auto) 26.3 [place] % (Auto) 9.6 Eos % (Auto) 1.1 L Baso % (Auto) 1.0 Neut # (Auto) 6300 Lymph # (Auto) 2700 [place] # (Auto) 1000 H Eos # (Auto) 100 Baso # (Auto) 100 PT 15.5 H INR 1.3 APTT 35 ABG pH 7.42 ABG pCO2 46.9 H ABG pO2 70 L ABG HCO3 31 H ABG Total CO2 32 H ABG O2 Saturation 94 L ABG Base Excess 6.0 H FiO2 32 Sodium Potassium Chloride Carbon Dioxide BUN Creatinine Estimated GFR BUN/Creatinine Ratio Glucose Lactate Calcium Magnesium Total Bilirubin AST ALT Alkaline Phosphatase Total Creatine Kinase CK-MB (CK-2) CK-MB (CK-2) Rel Index Troponin I NT-Pro-B Natriuret Pep Total Protein Albumin Globulin Albumin/Globulin Ratio Lipase Procalcitonin Urine Color Urine Appearance Urine pH Ur Specific Clements Urine Protein Urine Glucose (UA) Urine Ketones Urine Occult Blood Urine Nitrate Urine Bilirubin Urine Urobilinogen Ur Leukocyte Esterase Urine RBC Urine WBC Ur Squamous Epith Cells Urine Bacteria Ur Culture Indicated? Chlamy pneumoniae PCR Adenovirus (PCR) B. pertussis DNA (PCR) B.parapertussis DNA PCR Coronavirus OC43 (PCR) Coronavirus HKU1 (PCR) Coronavirus 229E (PCR) SARS-CoV-2 (PCR) Coronavirus NL63 (PCR) Human Metapneumovir PCR Influenza Type A (PCR) Influenza Type B (PCR) M. pneumoniae (PCR) Parainfluenza 1 (PCR) Parainfluenza 2 (PCR) Parainfluenza 3 (PCR) Parainfluenza 4 (PCR) RSV (PCR) Entero/Rhino (PCR) 08/29/22 08/29/22 08/29/22 17:16 17:16 18:35 WBC RBC Hgb Hct MCV MCH MCHC RDW Plt Count Neut % (Auto) Lymph % (Auto) [place] % (Auto) Eos % (Auto) Baso % (Auto) Neut # (Auto) Lymph # (Auto) [place] # (Auto) Eos # (Auto) Baso # (Auto) PT INR APTT ABG pH ABG pCO2 ABG pO2 ABG HCO3 ABG Total CO2 ABG O2 Saturation ABG Base Excess FiO2 Sodium 140 Potassium 3.4 Chloride 100 Carbon Dioxide 35 H BUN 26 H Creatinine 1.29 H Estimated GFR 48 L BUN/Creatinine Ratio 20.2 Glucose 89 Lactate 1.0 Calcium 9.0 Magnesium 1.9 Total Bilirubin 0.5 AST 20 ALT 19 Alkaline Phosphatase 81 Total Creatine Kinase < 20 L CK-MB (CK-2) TNP CK-MB (CK-2) Rel Index TNP Troponin I 0.013 NT-Pro-B Natriuret Pep 1250 H Total Protein 6.7 Albumin 3.8 Globulin 2.9 Albumin/Globulin Ratio 1.3 Lipase 80 Procalcitonin 0.06 Urine Color Urine Appearance Urine pH Ur Specific Clements Urine Protein Urine Glucose (UA) Urine Ketones Urine Occult Blood Urine Nitrate Urine Bilirubin Urine Urobilinogen Ur Leukocyte Esterase Urine RBC Urine WBC Ur Squamous Epith Cells Urine Bacteria Ur Culture Indicated? Chlamy pneumoniae PCR Not detected Adenovirus (PCR) Not detected B. pertussis DNA (PCR) Not detected B.parapertussis DNA PCR Not detected Coronavirus OC43 (PCR) Not detected Coronavirus HKU1 (PCR) Not detected Coronavirus 229E (PCR) Not detected SARS-CoV-2 (PCR) Not detected Coronavirus NL63 (PCR) Not detected Human Metapneumovir PCR Not detected Influenza Type A (PCR) Not detected Influenza Type B (PCR) Not detected M. pneumoniae (PCR) Not detected Parainfluenza 1 (PCR) Not detected Parainfluenza 2 (PCR) Not detected Parainfluenza 3 (PCR) Not detected Parainfluenza 4 (PCR) Not detected RSV (PCR) Not detected Entero/Rhino (PCR) Not detected 08/29/22 08/30/22 08/30/22 19:33 04:51 04:51 WBC 8.6 RBC 4.54 Hgb 14.5 Hct 42.8 MCV 94.3 MCH 31.9 MCHC 33.8 RDW 14.5 Plt Count 219 Neut % (Auto) 92.0 H D Lymph % (Auto) 6.[address] [place] % (Auto) 1.4 L Eos % (Auto) 0.0 L Baso % (Auto) 0.3 Neut # (Auto) 7900 H Lymph # (Auto) [address] # (Auto) 100 Eos # (Auto) 0 Baso # (Auto) 0 PT INR APTT ABG pH ABG pCO2 ABG pO2 ABG HCO3 ABG Total CO2 ABG O2 Saturation ABG Base Excess FiO2 Sodium 136 L Potassium 3.6 Chloride 98 Carbon Dioxide 28 BUN 28 H Creatinine 1.24 H Estimated GFR 50 L BUN/Creatinine Ratio 22.6 H Glucose 284 H D Lactate Calcium 8.7 Magnesium 1.8 Total Bilirubin AST ALT Alkaline Phosphatase Total Creatine Kinase CK-MB (CK-2) CK-MB (CK-2) Rel Index Troponin I NT-Pro-B Natriuret Pep Total Protein Albumin Globulin Albumin/Globulin Ratio Lipase Procalcitonin Urine Color Yellow Urine Appearance Clear Urine pH 6.0 Ur Specific Clements 1.010 Urine Protein Negative Urine Glucose (UA) Negative Urine Ketones Negative Urine Occult Blood Negative Urine Nitrate Negative Urine Bilirubin Negative Urine Urobilinogen 0.2 Ur Leukocyte Esterase Negative Urine RBC None seen Urine WBC None seen Ur Squamous Epith Cells 0-1 /hpf Urine Bacteria Occasional (0-1) Ur Culture Indicated? Cult not indicated Chlamy pneumoniae PCR Adenovirus (PCR) B. pertussis DNA (PCR) B.parapertussis DNA PCR Coronavirus OC43 (PCR) Coronavirus HKU1 (PCR) Coronavirus 229E (PCR) SARS-CoV-2 (PCR) Coronavirus NL63 (PCR) Human Metapneumovir PCR Influenza Type A (PCR) Influenza Type B (PCR) M. pneumoniae (PCR) Parainfluenza 1 (PCR) Parainfluenza 2 (PCR) Parainfluenza 3 (PCR) Parainfluenza 4 (PCR) RSV (PCR) Entero/Rhino (PCR) PFSH Medical History COPD (chronic obstructive pulmonary disease) Social History household members: spouse lives independently: Yes Smoking Status: Current every day smoker alcohol intake: former Assessment & Plan Assessment & Plan narrative: 1. Acute on chronic respiratory failure secondary to: ---acute on chronic CHFrEF ---acute COPD exacerbation -patient has history of dietary nonadherence -symptoms are more consistent with acute CHF exacerbation with elevated BNP, fluid evidence on chest xray -ordered for IV lasix, s/p -1.5L and BP soft -continue metoprolol and lisinopril -for now hold spironolactone -echo done just one month ago showing severe global hypokinesis and EF 25-30%, repeat limited on 08/30 unchanged -for copd exacerbation will order steroids, azithromycin, and nebs -changed po prednisone to IV solumedrol due to persistent wheezes 2. CAD s/p stents s/p ppm/aicd -continue eliquis, lisinopril, metoprolol 3. Chronic atrial fibrillation -continue eliquis, metoprolol, and amiodarone 4. CKD stage 2 -creatinine 1.29 on admission, near baseline -trend daily 5. Morbid obesity -BMI 41, will affect illness healing 6. Type 2 Diabetes -hold oral medications -ordered high dose insulin sliding scale -start lantus as she is hyperglycemic likely secondary to steroids 7. Neck pain -patient says she has pinched nerves in her neck causing severe pain -oxy PRN CODE: Full Proxy: Scottie Lemonsfrederick, Dispo: Home in 2-3 days pending improvement in oxygenation. Quality VTE Deep Vein Thrombosis/Pulmonary Embolism Present on Admission: No
[2022-08-30] MEDS: methylPREDNISolone 125 MG/2 ML VIAL 80 MG IV (14:59)
[2022-08-30] MEDS: ACETAMINOPHEN 325 MG TABLET 650 MG PO (17:56)
[2022-08-30] MEDS: OXYCODONE IR 5 MG TABLET PO (17:59)
[2022-08-30] MEDS: INSULIN GLARGINE 100 UNIT/ML 3ML PEN 15 UNIT SUBCUT (21:29)
[2022-08-31] VITALS (14 sets, daily range): BP systolic 114–135; BP diastolic 42–58; PULSE 61–82; RESP 17–22; TEMP 35.9–36.4; O2SAT 93–97
[2022-08-31] MEDS: methylPREDNISolone 125 MG/2 ML VIAL 80 MG IV ×2 (02:28→14:44)
[2022-08-31] MEDS: OXYCODONE IR 5 MG TABLET PO ×4 (02:43→21:26)
[2022-08-31] MEDS: ACETAMINOPHEN 325 MG TABLET 650 MG PO ×2 (02:43→13:52)
[2022-08-31] MEDS: BUDESONIDE 0.5 MG/2 ML NEB INH ×2 (07:25→19:09)
[2022-08-31] MEDS: ALBUTEROL/IPRATROPIUM 3 ML AMPUL INH ×5 (07:25→22:42)
[2022-08-31] MEDS: MONTELUKAST 10 MG TABLET PO (08:26)
[2022-08-31] MEDS: APIXABAN 5 MG TABLET PO ×2 (08:26→21:26)
[2022-08-31] MEDS: AMIODARONE 200 MG TABLET 100 MG PO (08:30)
[2022-08-31] MEDS: INSULIN LISPRO 100 UNIT/ML 3ML VIAL SUBCUT ×4 (09:10→21:22)
[2022-08-31] MEDS: METOPROLOL ER 50 MG TABLET 25 MG PO ×2 (09:10→21:29)
[2022-08-31] MEDS: FUROSEMIDE 40 MG/4 ML VIAL IV (10:37)
--- NOTE | 2022-08-31 12:22 | CM.DANOTE ---
Initial DCP Assessment Note Pt is a 57 yo female, states she lives alone in her trailer in [place], arrives with SOB and admitted OBS for management of acute on chronic resp failure and other co-morbidities PCP: Jolene Steen Payer: [facility] According to Dr Chirinos, patient may be ready for discharge today Met w/patient to review DCP; patient says she lives alone in her trailer, her ex spouse (still legally ?) visits daily. Patient says they are friends and that she feels a responsibility to look after her spouse Patient relies on her grand daughter Kris to help with transportation and assist w/errands, grocery shopping and some light house keeping. Patient and Kris are looking into she becoming patient's KARTIK caregiver. Patient is expecting a call from [facility] once she returns home Patient plans to return home upon discharge and requests referral to [facility] as she has had them in the past and benefited Placed call to Angelia at [facility], discussed referral and faxed completed and signed F2F w/demo sheet, HH order and H+P Plan: Anticipate discharge home w/family, [facility] (RN slots available next week) and close outpatient follow up GEORGE Tilley Discharge Planning/Care Management CM Discharge Assessment Start: 08/31/22 12:18 Freq: Status: Active Protocol: Document 08/31/22 12:18 TRACIE (Rec: 08/31/22 12:22 TRACIE [id number]) Discharge Planning Assessment 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 No Advance Directives on File No History Provided By Patient,Medical Record Prior Living Arrangements RV Type of transporation used prior to Relies on Others admit Independent with ADL's Yes: Poor activity tolerance Is patient alert and oriented? Yes Needs Assistance With Meal Prep,Home Chores / Shopping Patient/Family Preference Home with Home Health Comment Hx [facility], patient requests again Barriers to Discharge No Comment Home w/HH expected upon discharge. Family or friends to transport home Discharge Plan Home with Home Health Transportation Arrangement Likely spouse or family to provide transport Referrals Initiated Home Health Additional Comment Pt wants HH at d/c Medicare Choice List Provided No SNF/HH Preference Patient requests [facility] upon discharge
--- NOTE | 2022-08-31 14:06 | PM.PN.1 ---
Subjective Subjective Interval history: Patient says her breathing is still poor. She doesn't feel very well. Now on her baseline 3L O2. Exam Vital Signs (past 8 hours): - 08/31/22 07:25 08/31/22 08:00 08/31/22 08:26 Temperature 96.8 F L Pulse Rate 64 65 Respiratory Rate 18 20 Blood Pressure 126/58 L Pulse Oximetry 94 94 Oxygen Delivery Method Oximask Nasal Cannula Oxygen Flow Rate 3 3 Fraction of Inspired Oxygen 32 08/31/22 08:26 08/31/22 10:46 08/31/22 11:09 Temperature Pulse Rate 64 82 Respiratory Rate 18 20 Blood Pressure 128/54 L Pulse Oximetry 94 94 93 Oxygen Delivery Method Oximask Oximask Oxygen Flow Rate 3 3 Fraction of Inspired Oxygen 32 08/31/22 12:00 Temperature 96.7 F L Pulse Rate 63 Respiratory Rate 17 Blood Pressure 125/54 L Pulse Oximetry 93 Oxygen Delivery Method Oxygen Flow Rate 3 Fraction of Inspired Oxygen Fraction of Inspired Oxygen 32 SaO2/FiO2 Ratio 290 Oxygen Delivery Method Oximask Oxygen Flow Rate 3 Narrative Exam Narrative: GEN: NAD HEENT: moist mucous membranes, PERRL NECK: trachea midline, no JVD PULM: diffuse wheezes have improved today CV: irregular, no murmurs ABD: soft, nontender, nondistended, no organomegaly, normal bowel sounds EXT: warm and well perfused with no edema NEURO: awake, alert, oriented, no focal deficits Objective Labs 08/30/22 04:51 08/30/22 04:51 PFSH Medical History COPD (chronic obstructive pulmonary disease) Social History household members: spouse lives independently: Yes Smoking Status: Current every day smoker alcohol intake: former Assessment & Plan Assessment & Plan narrative: 1. Acute on chronic respiratory failure now improving secondary to: ---acute on chronic CHFrEF ---acute COPD exacerbation -patient has history of dietary nonadherence -symptoms are more consistent with acute CHF exacerbation with elevated BNP, fluid evidence on chest xray -ordered for IV lasix, s/p -2.5L since admission -continue metoprolol and lisinopril -for now hold spironolactone -echo done just one month ago showing severe global hypokinesis and EF 25-30%, repeat limited on 08/30 unchanged -for copd exacerbation will order steroids, azithromycin, and nebs -changed po prednisone to IV solumedrol due to persistent wheezes -now back on baseline 3L O2 and wheezes improving 2. CAD s/p stents s/p ppm/aicd -continue eliquis, lisinopril, metoprolol 3. Chronic atrial fibrillation -continue eliquis, metoprolol, and amiodarone 4. CKD stage 2 -creatinine 1.29 on admission, near baseline -trend daily 5. Morbid obesity -BMI 41, will affect illness healing 6. Type 2 Diabetes -hold oral medications -ordered high dose insulin sliding scale -start lantus as she is hyperglycemic likely secondary to steroids 7. Neck pain -patient says she has pinched nerves in her neck causing severe pain -oxy PRN CODE: Full Proxy: Scottie Chong, Dispo: Home in 1-2 days pending improvement in oxygenation. Quality VTE Deep Vein Thrombosis/Pulmonary Embolism Present on Admission: No
[2022-08-31] MEDS: INSULIN GLARGINE 100 UNIT/ML 3ML PEN 15 UNIT SUBCUT (21:20)
[2022-09-01] VITALS: BP 121/48; PULSE 61; RESP 16; TEMP 36.3; O2SAT 93
[2022-09-01] MEDS: methylPREDNISolone 125 MG/2 ML VIAL 80 MG IV (02:03)
[2022-09-01] MEDS: OXYCODONE IR 5 MG TABLET PO ×2 (02:06→09:20)
[2022-09-01 04:00] VITALS: BP 131/53; PULSE 64; RESP 18; TEMP 36.4; O2SAT 92
[2022-09-01] MEDS: ALBUTEROL/IPRATROPIUM 3 ML AMPUL INH (07:45)
[2022-09-01 07:46] VITALS: PULSE 60; RESP 22; O2SAT 94
[2022-09-01] MEDS: BUDESONIDE 0.5 MG/2 ML NEB INH (07:51)
[2022-09-01 07:53] VITALS: PULSE 68; RESP 24; O2SAT 96
[2022-09-01 08:00] VITALS: O2SAT 94
[2022-09-01 08:04] VITALS: BP 125/63; PULSE 80; RESP 16; TEMP 36.8; O2SAT 96
[2022-09-01] MEDS: INSULIN LISPRO 100 UNIT/ML 3ML VIAL SUBCUT (08:44)
[2022-09-01] MEDS: METOPROLOL ER 50 MG TABLET 25 MG PO (09:10)
[2022-09-01] MEDS: lisinopriL 5 MG TABLET PO (09:10)
[2022-09-01] MEDS: APIXABAN 5 MG TABLET PO (09:10)
[2022-09-01] MEDS: AMIODARONE 200 MG TABLET 100 MG PO (09:11)
[2022-09-01] MEDS: ACETAMINOPHEN 325 MG TABLET 650 MG PO (09:23)
--- NOTE | 2022-09-01 10:53 | PC.NURSE ---
Pt is dressed and ready for discharge home with Friend. IV has been removed. Went over d/c instructions with Pt discussed d/c meds, time of last dose, reviewed stroke education, chf guidelines sheet, reminded Pt to pace herself and rest as needed. Pt to follow up with her PCP. Pt denies further questions and will be taken out via w/c by [facility] to POV with Friend and all belongings.
--- NOTE | 2022-09-01 13:46 | PC.NURSE ---
Discharge: Pt feels ready to d/c to home. She has home O2 already. Understands how to use it. Dr. Chirinos here and gave d/c instructions. Reviewed d/c packet with Bekah BONILLA. Questions answered. Pt d/c to home via auto with family. Voiced no concerns.
--- NOTE | 2022-09-01 19:05 | P.DS_ITS ---
History of Present Illness History of Present Illness Date Patient Seen: 08/29/22 Time Patient Seen: 20:00 Chief complaint: SOB tano/ [place] Narrative: ?Ms. Chong is a 57W with PMH COPD on 3L oxygen, smoker, CHFrEF, CAD s/p stents, s/p ppm/aicd, Type 2 DM, afib who presents to the hospital with shortness of breath. She has noted a chronic cough. It is not worse than her usual. She brings up clear phlegm. She has noted no chest pain. She thinks her weight has g one up, but she has no scale to measure this. She has difficulty with exertion and lying flat which worsen her shortness of breath. She is using her oxygen more frequently. She is not urinating very much. She was admitted to the hospital last month with a similar presentation and ordered for diuresis and for treatment of COPD, and she had ECHO with EF 25-30%. She has a history of poor adherence to CHF diet. She has been referred to hospice in the past by her PCP, but has remained full code. In the ED workup was done, vitals notable for afebrlie, heart rate in the 70s- 80s, respiratory rate in 20s-30s, blood pressure 70-100s/40s-50s. Sats in the 90s on 3L. Labs reviewed by me and notable for WBC 10.2, hgb 14.5, plts 232. Na 140, k 3.4, creatinine 1.29. INR 1.3. ABG pH 7.42, pCO2 46.9. Lactate 1.0. Trop 0.013. BNP 1250. Procal 0.06. Chest xray reviewed by me and showed cardiomegaly and interstitial congestion. She was ordered for lasix and steroids and nebulizers and admitte for further treatment. Discharge Providers Provider Date of admission: 08/29/22 19:22 Discharge Date: 09/01/22 Primary care physician: Jolene Steen PA-C Consults: 08/29/22 21:02 Consult to Dietitian, Adult Routine Comment: Reason For Exam: weight loss >50# in a month 08/31/22 13:13 Consult to Home Health Routine Comment: Reason For Exam: Home health upon discharge Discharge provider: Miguel Chirinos DO Summary Hospital Course Discharge Diagnosis: 1. Acute on chronic respiratory failure now improving secondary to: ---acute on chronic CHFrEF ---acute COPD exacerbation -patient has history of dietary nonadherence -symptoms are more consistent with acute CHF exacerbation with elevated BNP, fluid evidence on chest xray -ordered for IV lasix, s/p -2.5L since admission -continue metoprolol and lisinopril -for now hold spironolactone -echo done just one month ago showing severe global hypokinesis and EF 25-30%, repeat limited on 08/30 unchanged -for copd exacerbation will order steroids, azithromycin, and nebs -changed po prednisone to IV solumedrol due to persistent wheezes -now back on baseline 3L O2 and wheezes improving -discharged on 40mg prednisone x3 more days 2. CAD s/p stents s/p ppm/aicd -continue eliquis, lisinopril, metoprolol 3. Chronic atrial fibrillation -continue eliquis, metoprolol, and amiodarone 4. CKD stage 2 -creatinine 1.29 on admission, near baseline -trend daily 5. Morbid obesity -BMI 41, will affect illness healing 6. Type 2 Diabetes -hold oral medications -ordered high dose insulin sliding scale -start lantus as she is hyperglycemic likely secondary to steroids 7. Neck pain -patient says she has pinched nerves in her neck causing severe pain -oxy PRN Hospital Course: Admitted for worsening SOB and wheezing. CXR showed interstitial edema so started on IV lasix. Repeat echo showed no changes from prior. Given IV steroids for wheezing which improved. Able to wean back to baseline 3L O2. Discharged home on po prednisone and home po lasix. Time Spent with Patient Time spent: Greater than 30 minutes Exam Vital Signs (past 8 hours): Fraction of Inspired Oxygen 32 SaO2/FiO2 Ratio 290 Oxygen Delivery Method Nasal Cannula Oxygen Flow Rate 3 Narrative Exam Narrative: GEN: NAD HEENT: moist mucous membranes, PERRL NECK: trachea midline, no JVD PULM: diffuse wheezes have improved today CV: irregular, no murmurs ABD: soft, nontender, nondistended, no organomegaly, normal bowel sounds EXT: warm and well perfused with no edema NEURO: awake, alert, oriented, no focal deficits Objective Labs 08/30/22 04:51 08/30/22 04:51 [facility] Medical History COPD (chronic obstructive pulmonary disease) Social History household members: spouse lives independently: Yes Smoking Status: Current every day smoker alcohol intake: former Discharge Plan Discharge Plan Patient Disposition: Home Health Service Provider Discharge Comment: You were admitted to the hospital for worsening shortness of breath. We gave you high dose lasix to get water off and steroids and your breathing improved. You will now finish a few days of steroids at home. Discharge orders & Medications Prescriptions: New prednisone 20 mg tablet 40 mg PO DAILY 3 Days Qty: 6 0RF Continued furosemide 40 mg tablet 80 mg PO DAILY Patient Comments: TAKE 1 TABLET BY MOUTH TWICE DAILY amiodarone 200 mg tablet 100 mg PO DAILY Patient Comments: TAKE 1/2 (ONE-HALF) TABLET BY MOUTH ONCE DAILY spironolactone 25 mg tablet 25 mg PO DAILY Patient Comments: TAKE 1 TABLET BY MOUTH ONCE DAILY lisinopril 5 mg tablet 5 mg PO DAILY Patient Comments: TAKE 1 TABLET BY MOUTH ONCE DAILY albuterol sulfate [Ventolin HFA] 90 mcg/actuation HFA aerosol inhaler 2 puff INHALATION QID PRN (Reason: Shortness Of Breath) Patient Comments: INHALE 2 PUFFS BY MOUTH 4 TIMES DAILY NEEDED Eliquis 5 mg tablet 5 mg PO BID Patient Comments: TAKE 1 TABLET BY MOUTH TWICE DAILY oxycodone 5 mg Tablet 5 mg PO Q4HR PRN (Reason: pain) Qty: 20 0RF glipizide [Glucotrol XL] 5 mg tablet extended release 24hr 5 mg PO DAILY Qty: 30 3RF metoprolol succinate 25 mg tablet extended release 24 hr 25 mg PO BID Patient Comments: TAKE 1 TABLET BY MOUTH TWICE DAILY FOR BLOOD PRESSURE ProAir RespiClick 90 mcg/actuation aerosol powdr breath activated 2 inh INHALATION Q4H PRN (Reason: Shortness Of Breath) Patient Comments: INHALE 2 PUFFS BY MOUTH EVERY 4 TO 6 HOURS NEEDED promethazine 25 mg tablet 25 mg PO Q6H PRN (Reason: Nausea) Patient Comments: TAKE 1 TABLET BY MOUTH EVERY 6 HOURS multivitamin Tablet 1 tab PO DAILY Mucinex DM 30-600 mg Tablet Extended Release 12 Hr 1 tab PO BEDTIME methocarbamol 500 mg tablet 500 mg PO TID PRN (Reason: Muscle Spasm) Patient Comments: TAKE 1 TABLET BY MOUTH THREE TIMES DAILY NEEDED FOR MUSCLE SPASM Follow up/Referrals: Jolene Steen PA-C [Primary Care Provider] - 2 Weeks (*Appt on September With at 10:00am. Please check-in at 09:45am. [phone]. ) Visit Report/Discharge Packet Instructions: DI for Heart Failure, DI for Pneumonia -- Adult, How to Prevent Falls, DI for Encephalopathy Stand Alone Forms: Congestive Heart Failure, Patient Portal/API, Stroke Signs & Symptoms Discharge Data Primary Care Provider: Jolene Steen Discharges patient from system. Discharge Date/Time: 09/01/22 11:00 Quality VTE Deep Vein Thrombosis/Pulmonary Embolism Present on Admission: No
--- NOTE | 2022-09-02 14:14 | CM.DPNOTE ---
DC Note Late Entry Discharge home 09.01.22, cleared by therapies for this plan. Patient agreeable to home health and requests [facility] Full referral with completed and signed F2F, HH order, demo sheet, H+P faxed to [facility]. DC Summary signed by Dr Chirinos today and so faxed today 09.02.22. 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
== END 2022-09-01 11:00 | disposition home health service (06) | DRG 291 ==
LOC: ED 18:45 → AC 08-30 07:21
PROVIDERS: Admitting Provider Internal Medicine; Emergency Provider Emergency Medicine; Family Provider Internal Medicine; PCP Physician Assistant Medical; Visit Provider Internal Medicine
DX: I50.23 Acute on chronic systolic (congestive) heart failure (principal); J96.21 Acute and chronic respiratory failure with hypoxia; Z68.41 Body mass index [BMI] 40.0-44.9, adult; I48.20 Chronic atrial fibrillation, unspecified; J44.1 Chronic obstructive pulmonary disease with (acute) exacerbation; E66.01 Morbid (severe) obesity due to excess calories; I25.10 Atherosclerotic heart disease of native coronary artery without angina pectoris; E11.22 Type 2 diabetes mellitus with diabetic chronic kidney disease; N18.2 Chronic kidney disease, stage 2 (mild); E11.65 Type 2 diabetes mellitus with hyperglycemia; M54.2 Cervicalgia; T38.0X5A Adverse effect of glucocorticoids and synthetic analogues, initial encounter; F17.200 Nicotine dependence, unspecified, uncomplicated; Z95.810 Presence of automatic (implantable) cardiac defibrillator; Z99.81 Dependence on supplemental oxygen; Z79.01 Long term (current) use of anticoagulants; Z20.822 Contact with and (suspected) exposure to COVID-19; Z95.5 Presence of coronary angioplasty implant and graft; Z79.84 Long term (current) use of oral hypoglycemic drugs; Z23 Encounter for immunization
CPT/HCPCS: 36415; 36600; 71045; 80048; 80053; 81001; 82550; 82805; 82962; 83605; 83690; 83735; 83880; 84145; 84484; 85025; 85610; 85730; 87633; 90471; 90656; 93307; 94640; 94760; 96374; 96375; 99285; J1815; J1940; J2930; J7613; Q2038

== ENCOUNTER 2022-11-07 09:27 | Inpatient (IN) | payer MEDICARE, MEDICAID, SELFPAY ==
[2022-07-17 10:41] VITALS: PULSE 61; RESP 24; O2SAT 94
[2022-08-29 20:52] VITALS: BMI 41.0
[2022-11-07] VITALS (42 sets, daily range): BP systolic 93–130; BP diastolic 42–86; PULSE 62–86; RESP 14–40; TEMP 35.6–37.7; O2SAT 90–97; BMI 40.0
--- NOTE | 2022-11-07 09:40 | DI.RAD.S_ITS ---
PROCEDURE: XR CHEST 1V INDICATIONS: Shortness of breath TECHNIQUE: One view of the chest was acquired. COMPARISON: [facility], , XR CHEST 1V, 08/29/2022, 16:42. FINDINGS: Surgical changes and devices: Left chest wall pacer. Lungs and pleura: Hazy interstitial thickening bilaterally similar to the prior study. No focal consolidation or mass. No pneumothorax or pleural effusion. Mediastinum: Mediastinal contours appear normal. Heart size is normal. Bones and chest wall: No suspicious bony lesions. Overlying soft tissues appear unremarkable. IMPRESSION: 1. Cardiomegaly with mild pulmonary vascular congestion. 2. Similar appearance compared to 08/29/2022, may be chronic. Dictated by: Agustin Foster M.D. on 11/07/2022 at 9:40 Approved by: Agustin Foster M.D. on 11/07/2022 at 9:42
[2022-11-07] MEDS: ALBUTEROL/IPRATROPIUM 3 ML AMPUL INH ×2 (09:49→18:30)
[2022-11-07] MEDS: methylPREDNISolone 125 MG/2 ML VIAL IV (10:02)
[2022-11-07 10:04] LABS: Add Manual Diff / Slide Review NO; Basophils Absolute Auto 100 /uL (0-100); Basophils Percent Auto 0.7 % (0-2); Eosinophils Absolute Auto 300 /uL (0-450); Eosinophils Percent Auto 3.8 % (2-4); Hematocrit 46.2 % (36-46); Hemoglobin 15.6 g/dL (12.0-16.0); Lymphocytes Absolute Auto 1900 /uL (1100-4500); Lymphocytes Percent Auto 24.3 % (25-40); Mean Corpuscular HGB Conc 33.8 % (30-36); Mean Corpuscular Hemoglobin 32.2 PG (26-34); Mean Corpuscular Volume 95.3 fL (80-100); Monocytes Absolute Auto 700 /uL (0-900); Monocytes Percent Auto 9.6 % (3-14); Neutrophils Absolute Auto 4700 /uL (1500-7000); Neutrophils Percent Auto 61.6 % (50-75); Platelet Count 221 X10^3/uL (150-400); Red Blood Cell Count 4.85 X10^6/uL (4.0-5.2); Red Cell Distribution Width 13.5 % (11.6-14.8); White Blood Cell Count 7.7 X10^3/uL (4.5-11.0)
--- NOTE | 2022-11-07 10:04 | ED_ITS ---
HPI - SOB/Dyspnea General Chief Complaint: Shortness of Breath/Dyspnea Stated Complaint: hard time breathing Time Seen by Provider: 11/07/22 09:37 Source: patient Mode of arrival: Ambulatory Limitations: no limitations History of Present Illness HPI Narrative: 57-year-old female daily smoker with history of diabetes, COPD on 3L home O2 (usually in low 90s), CHF presents with increased work of breathing for the past week or so. She is had cough and sputum production. She denies any obvious fever, but does have chills. She is more short of breath with exertion and more short of breath when lying flat. She states that this is because she becomes increasingly short of breath. She states she can normally move all through her house when on her 3 L of oxygen but for the past few days she can barely make it from her bed to the bathroom. She denies runny nose, sore throat. She denies any abdominal pain, constipation or urinary complaints. She denies any change in her medications. She denies any dietary change. She denies exposure to obviously ill persons Related Data Home Medications Medication Instructions Recorded Confirmed albuterol sulfate 90 mcg/actuation 2 puff inhalation QID PRN 07/17/22 08/29/22 aerosol inhaler (Ventolin HFA) Shortness Of Breath amiodarone 200 mg tablet 100 mg PO DAILY 07/17/22 08/29/22 apixaban 5 mg tablet (Eliquis) 5 mg PO BID 07/17/22 08/29/22 furosemide 40 mg tablet 80 mg PO DAILY 07/17/22 08/29/22 lisinopril 5 mg tablet 5 mg PO DAILY 07/17/22 08/29/22 spironolactone 25 mg tablet 25 mg PO DAILY 07/17/22 08/29/22 albuterol sulfate 90 mcg/actuation 2 inh inhalation Q4H PRN Shortness 08/29/22 08/29/22 breath activated powder inhaler Of Breath (ProAir RespiClick) dextromethorphan-guaifenesin 30 1 tab PO BEDTIME 08/29/22 08/29/22 mg-600 mg tablet extended [id number] hr (Mucinex DM) methocarbamol 500 mg tablet 500 mg PO TID PRN Muscle Spasm 08/29/22 08/29/22 metoprolol succinate 25 mg 25 mg PO BID 08/29/22 08/29/22 tablet,extended release 24 hr multivitamin 1 tab PO DAILY 08/29/22 08/29/22 promethazine 25 mg tablet 25 mg PO Q6H PRN Nausea 08/29/22 08/29/22 Previous Rx's Medication Instructions Recorded glipizide 5 mg tablet, extended 5 mg PO DAILY #30 tabs 07/20/22 release 24 hr (Glucotrol XL) oxycodone 5 mg tablet 5 mg PO Q4HR PRN pain #20 tabs 07/20/22 Allergies Allergy/AdvReac Type Severity Reaction Status Date / Time bee pollen Allergy Severe Anaphylaxis Verified 11/07/22 09:35 Fish Containing Products Allergy Severe Anaphylaxis Verified 11/07/22 09:35 shellfish derived Allergy Severe Anaphylaxis Verified 11/07/22 09:35 acetaminophen [From Midol] Allergy Verified 11/07/22 09:35 codeine Allergy Verified 11/07/22 09:35 erythromycin base Allergy Verified 11/07/22 09:35 iodine Allergy Rash Verified 11/07/22 09:35 latex Allergy Rash Verified 11/07/22 09:35 pamabrom [From Midol] Allergy Verified 11/07/22 09:35 doxycycline AdvReac Vomiting Verified 11/07/22 09:35 Review of Systems Review of Systems Narrative: GENERAL: See HPI HEENT: See HPI RESPIRATORY: See HPI CARDIOVASCULAR: See HPI GASTROINTESTINAL: Denies nausea, vomiting, abdominal pain, diarrhea, constipation, melena. : Denies dysuria, frequency, incontinence, hematuria, urinary retention. MUSCULOSKELETAL: denies weakness, joint pain, or bony pain SKIN: Denies rash, skin lesions, or other NEUROLOGIC: Denies weakness, headache, numbness, change in speech, confusion, seizures, incoordination. PSYCHIATRIC: No concerning psychosocial issues. 12 point review of systems is negative except for those stated above Patient History Medical History (Updated 11/07/22 @ 16:30 by Milo Jarrell DO) CAD (coronary artery disease) Congestive heart failure COPD (chronic obstructive pulmonary disease) Surgical History (Updated 11/07/22 @ 15:48 by Armin Echols DO) AICD (automatic cardioverter/defibrillator) present H/O heart artery stent Social History household members: spouse lives independently: Yes Smoking Status: Current every day smoker alcohol intake: former Smoking Status: Current every day smoker tobacco type: cigarettes alcohol intake frequency: holidays/special occasions only Substance Use Type: marijuana Exam Narrative Exam Narrative: GENERAL: [57] year old patient appears stated age. Well-developed patient, in m oderate distress. HEAD: Atraumatic. Normocephalic. EYES: Pupils equal round and reactive. Extraocular motions intact. No scleral icterus. No injection or drainage. ENT: Nose without bleeding, purulent drainage. Throat without erythema, tonsillar hypertrophy or exudate. Airway patent. NECK: Trachea midline. Non tender CARDIOVASCULAR: Regular rate and rhythm without murmurs, gallops, or rubs. RESPIRATORY: Some increased work of breathing, decreased lung sounds throughout with bibasilar crackles, satting mid 90s on 4 L, with tachypnea, use of accessory muscles. GASTROINTESTINAL: Abdomen soft, non-tender, nondistended. EXTREMITIES: No edema or joint tenderness. BACK: Nontender without deformity or crepitance. No flank tenderness. NEURO: AOx3. SKIN: No rash or erythema of visible areas Initial Vital Signs Initial Vital Signs: Vital Signs Temperature 99.9 F H 11/07/22 09:30 Pulse Rate 80 11/07/22 09:30 Respiratory Rate 40 H 11/07/22 09:30 Blood Pressure 125/79 11/07/22 09:30 Pulse Oximetry 90 L 11/07/22 09:30 Oxygen Delivery Method Room Air 11/07/22 09:30 Course Orders Ordered: ED Orders 11/07/22 09:33 Respiratory Panel (Film Array) Stat 11/07/22 09:40 XR chest 1V Stat 11/07/22 09:52 BNP [NT-proBNP (BNP-Adult 18+)] Stat Complete Blood Count AUTO DIFF Stat Comprehensive Metabolic Panel Stat Lactate (Lactic Acid) Stat Procalcitonin Stat Prothrombin Time INR Stat Troponin & CK Cardiac Panel Stat 11/07/22 10:30 Blood Culture Stat 11/07/22 12:34 CT chest wo con Stat Naloxone HCl (Naloxone 0.4 Mg/Ml Vial) 0.2 mg IV Q2MIN PRN PRN Reason: Opiate Reversal Ondansetron HCl (Ondansetron 4 Mg/2 Ml Inj) 4 mg IV Q8HR PRN PRN Reason: Nausea And Vomiting Discontinued Medications Albuterol/Ipratropium (Albuterol/Ipratropium 3 Ml Ampul) 3 ml INH NOW ONE Stop: 11/07/22 09:47 Last Admin: 11/07/22 09:49 Dose: 3 ml Documented By: FAUSTINA Furosemide (Furosemide 40 Mg/4 Ml Vial) 40 mg IV NOW ONE Stop: 11/07/22 10:37 Last Admin: 11/07/22 11:05 Dose: 40 mg Documented By: AT Ceftriaxone Sodium 2,000 mg/ (Sodium Chloride) 100 mls @ 200 mls/hr IV NOW ONE Stop: 11/07/22 10:23 Last Infusion: 11/07/22 12:59 Dose: 0 mls/hr Documented By: Admin: 11/07/22 11:05 Dose: 200 mls/hr Documented By: AT Methylprednisolone (Methylprednisolone 125 Mg/2 Ml Vial) 125 mg IV NOW ONE Stop: 11/07/22 09:42 Last Admin: 11/07/22 10:02 Dose: 125 mg Documented By: NR Reevaluation(s) Reevaluation #1: Minimal change after DuoNeb Vital Signs Vital signs: Vital Signs - 8 hr 11/07/22 09:30 11/07/22 09:49 11/07/22 09:42 Temperature 99.9 F H Pulse Rate 80 80 82 Respiratory Rate 40 H 26 H Blood Pressure 125/79 Pulse Oximetry 90 L 91 94 Oxygen Delivery Method Room Air Venturi Mask Simple Mask Oxygen Flow Rate 3 3 Fraction of Inspired Oxygen 32 11/07/22 09:43 11/07/22 09:43 11/07/22 09:50 Temperature Pulse Rate 83 Respiratory Rate 40 H Blood Pressure 94/50 L 102/57 L Pulse Oximetry 92 Oxygen Delivery Method Simple Mask Oxygen Flow Rate 3 Fraction of Inspired Oxygen 11/07/22 09:50 11/07/22 10:00 11/07/22 10:00 Temperature Pulse Rate 76 75 Respiratory Rate 30 H 29 H Blood Pressure 93/53 L Pulse Oximetry 91 94 Oxygen Delivery Method Simple Mask Oximask Oxygen Flow Rate 3 3 Fraction of Inspired Oxygen 11/07/22 10:10 11/07/22 10:10 11/07/22 10:20 Temperature Pulse Rate 78 73 Respiratory Rate 26 H 30 H Blood Pressure 100/45 L Pulse Oximetry 94 95 Oxygen Delivery Method Oxygen Flow Rate Fraction of Inspired Oxygen 11/07/22 10:30 11/07/22 10:31 11/07/22 10:31 Temperature Pulse Rate 71 74 Respiratory Rate 29 H 30 H Blood Pressure 98/55 L Pulse Oximetry 96 97 Oxygen Delivery Method Oximask Oxygen Flow Rate 3 Fraction of Inspired Oxygen 11/07/22 10:40 11/07/22 10:40 11/07/22 10:50 Temperature Pulse Rate 77 74 Respiratory Rate 28 H 33 H Blood Pressure 94/51 L Pulse Oximetry 93 92 Oxygen Delivery Method Oxygen Flow Rate Fraction of Inspired Oxygen 11/07/22 10:51 11/07/22 10:51 11/07/22 11:00 Temperature Pulse Rate 78 Respiratory Rate 32 H Blood Pressure 114/55 L 116/56 L Pulse Oximetry 93 Oxygen Delivery Method Oxygen Flow Rate Fraction of Inspired Oxygen 11/07/22 11:00 11/07/22 11:10 11/07/22 11:10 Temperature Pulse Rate 74 75 Respiratory Rate 33 H 30 H Blood Pressure 102/53 L Pulse Oximetry 94 93 Oxygen Delivery Method Oximask Oxygen Flow Rate 3 Fraction of Inspired Oxygen 11/07/22 11:20 11/07/22 11:20 11/07/22 11:30 Temperature Pulse Rate 73 77 Respiratory Rate 37 H 34 H Blood Pressure 108/49 L Pulse Oximetry 91 92 Oxygen Delivery Method Oximask Oxygen Flow Rate 3 Fraction of Inspired Oxygen 11/07/22 11:31 11/07/22 11:31 11/07/22 11:40 Temperature Pulse Rate 83 Respiratory Rate 36 H Blood Pressure 130/86 120/70 Pulse Oximetry 92 Oxygen Delivery Method Oxygen Flow Rate Fraction of Inspired Oxygen 11/07/22 11:40 11/07/22 11:50 11/07/22 11:51 Temperature Pulse Rate 82 74 79 Respiratory Rate 14 33 H 37 H Blood Pressure Pulse Oximetry 92 91 91 Oxygen Delivery Method Oxygen Flow Rate Fraction of Inspired Oxygen 11/07/22 11:51 11/07/22 12:00 11/07/22 12:00 Temperature Pulse Rate 69 Respiratory Rate 35 H Blood Pressure 102/56 L 103/59 L Pulse Oximetry 92 Oxygen Delivery Method Oximask Oxygen Flow Rate 3 Fraction of Inspired Oxygen 11/07/22 12:10 11/07/22 12:10 11/07/22 12:20 Temperature Pulse Rate 68 64 Respiratory Rate 34 H 33 H Blood Pressure 107/53 L Pulse Oximetry 93 94 Oxygen Delivery Method Oxygen Flow Rate Fraction of Inspired Oxygen 11/07/22 12:21 11/07/22 12:21 11/07/22 12:30 Temperature Pulse Rate 66 Respiratory Rate 29 H Blood Pressure 120/59 L 108/56 L Pulse Oximetry 94 Oxygen Delivery Method Oxygen Flow Rate Fraction of Inspired Oxygen 11/07/22 12:30 11/07/22 12:40 11/07/22 12:40 Temperature Pulse Rate 62 62 Respiratory Rate 24 24 Blood Pressure 112/56 L Pulse Oximetry 95 95 Oxygen Delivery Method Oximask Venturi Mask Oxygen Flow Rate 3 3 Fraction of Inspired Oxygen 11/07/22 12:50 11/07/22 12:50 11/07/22 13:06 Temperature Pulse Rate 65 68 Respiratory Rate 26 H 26 H Blood Pressure 114/58 L Pulse Oximetry 92 92 Oxygen Delivery Method Oxygen Flow Rate Fraction of Inspired Oxygen 11/07/22 13:35 11/07/22 13:40 11/07/22 13:40 Temperature Pulse Rate 70 Respiratory Rate 26 H Blood Pressure 112/58 L 107/55 L Pulse Oximetry 93 Oxygen Delivery Method Oxygen Flow Rate Fraction of Inspired Oxygen 11/07/22 13:50 11/07/22 13:50 11/07/22 14:00 Temperature Pulse Rate 69 Respiratory Rate 33 H Blood Pressure 99/50 L 93/52 L Pulse Oximetry 93 Oxygen Delivery Method Oxygen Flow Rate Fraction of Inspired Oxygen 11/07/22 14:00 11/07/22 14:10 11/07/22 14:10 Temperature Pulse Rate 67 68 Respiratory Rate 33 H 32 H Blood Pressure 108/53 L Pulse Oximetry 92 93 Oxygen Delivery Method Oxygen Flow Rate Fraction of Inspired Oxygen 11/07/22 14:20 11/07/22 14:20 Temperature Pulse Rate 69 Respiratory Rate 33 H Blood Pressure 115/59 L Pulse Oximetry 94 Oxygen Delivery Method Oxygen Flow Rate Fraction of Inspired Oxygen MDM - SOB/Dyspnea Lab Data 11/07/22 09:52 11/07/22 09:52 Labs: Lab Results 11/07/22 11/07/22 11/07/22 Range/Units 09:33 09:52 09:52 WBC 7.7 (4.5-11.0) X10^3/uL RBC 4.85 (4.0-5.2) X10^6/uL Hgb 15.6 (12.0-16.0) g/dL Hct 46.2 H (36-46) % MCV 95.3 (80-100) fL MCH 32.2 (26-34) PG MCHC 33.8 (30-36) % RDW 13.5 (11.6-14.8) % Plt Count 221 (150-400) X10^3/uL Neut % (Auto) 61.6 (50-75) % Lymph % (Auto) 24.3 L (25-40) % [place] % (Auto) 9.6 (3-14) % Eos % (Auto) 3.8 (2-4) % Baso % (Auto) 0.7 (0-2) % Neut # (Auto) 4700 (0508-9033) /uL Lymph # (Auto) 1900 (3138-1425) /uL [place] # (Auto) 700 (0-900) /uL Eos # (Auto) 300 (0-450) /uL Baso # (Auto) 100 (0-100) /uL PT 16.3 H (10.1-12.7) SECONDS INR 1.4 H (0.9-1.3) Sodium (137-145) mmol/L Potassium (3.4-5.1) mmol/L Chloride (98-107) mmol/L Carbon Dioxide (22-32) mmol/L BUN (7-17) mg/dL Creatinine (0.52-1.04) mg/dL Estimated GFR (>60) mL/min BUN/Creatinine Ratio (6-22) Glucose (70-100) mg/dL Lactate (0.7-2.1) mmol/L Calcium (8.4-10.2) mg/dL Total Bilirubin (0.2-1.3) mg/dL AST (14-36) IU/L ALT (<35) IU/L Alkaline Phosphatase (38-126) U/L Total Creatine Kinase (30-135) U/L Troponin I (0.01-0.034) ng/mL NT-Pro-B Natriuret Pep (<125) pg/mL Total Protein (6.3-8.2) g/dL Albumin (3.5-5.0) g/dL Globulin (1.7-4.1) g/dL Albumin/Globulin Ratio (1.0-2.8) Procalcitonin (<0.5) ng/mL Chlamy pneumoniae PCR Not detected (Not Detect) Adenovirus (PCR) Not detected (Not Detect) B. pertussis DNA (PCR) Not detected (Not Detecte) B.parapertussis DNA PCR Not detected (Not Detecte) Coronavirus OC43 (PCR) Not detected (Not Detect) Coronavirus HKU1 (PCR) Not detected (Not Detect) Coronavirus 229E (PCR) Not detected (Not Detect) SARS-CoV-2 (PCR) Not detected (Not Detecte) Coronavirus NL63 (PCR) Not detected (Not Detect) Human Metapneumovir PCR Not detected (Not Detect) Influenza Type A (PCR) Not detected (Not Detect) Influenza Type B (PCR) Not detected (Not Detect) M. pneumoniae (PCR) Not detected (Not Detect) Parainfluenza 1 (PCR) Not detected (Not Detect) Parainfluenza 2 (PCR) Not detected (Not Detect) Parainfluenza 3 (PCR) Not detected (Not Detect) Parainfluenza 4 (PCR) Detected H (Not Detect) RSV (PCR) Not detected (Not Detect) Entero/Rhino (PCR) Not detected (Not Detect) 11/07/22 11/07/22 11/07/22 Range/Units 09:52 09:52 09:52 WBC (4.5-11.0) X10^3/uL RBC (4.0-5.2) X10^6/uL Hgb (12.0-16.0) g/dL Hct (36-46) % MCV (80-100) fL MCH (26-34) PG MCHC (30-36) % RDW (11.6-14.8) % Plt Count (150-400) X10^3/uL Neut % (Auto) (50-75) % Lymph % (Auto) (25-40) % [place] % (Auto) (3-14) % Eos % (Auto) (2-4) % Baso % (Auto) (0-2) % Neut # (Auto) (3055-7466) /uL Lymph # (Auto) (2374-8639) /uL [place] # (Auto) (0-900) /uL Eos # (Auto) (0-450) /uL Baso # (Auto) (0-100) /uL PT (10.1-12.7) SECONDS INR (0.9-1.3) Sodium 138 (137-145) mmol/L Potassium 3.6 (3.4-5.1) mmol/L Chloride 98 (98-107) mmol/L Carbon Dioxide 30 (22-32) mmol/L BUN 14 (7-17) mg/dL Creatinine 0.84 (0.52-1.04) mg/dL Estimated GFR > 60 (>60) mL/min BUN/Creatinine Ratio 16.7 (6-22) Glucose 193 H (70-100) mg/dL Lactate 3.2 H (0.7-2.1) mmol/L Calcium 9.6 (8.4-10.2) mg/dL Total Bilirubin 0.5 (0.2-1.3) mg/dL AST 25 (14-36) IU/L ALT 24 (<35) IU/L Alkaline Phosphatase 92 (38-126) U/L Total Creatine Kinase 28 L (30-135) U/L Troponin I 0.017 (0.01-0.034) ng/mL NT-Pro-B Natriuret Pep 1420 H (<125) pg/mL Total Protein 7.5 (6.3-8.2) g/dL Albumin 4.1 (3.5-5.0) g/dL Globulin 3.4 (1.7-4.1) g/dL Albumin/Globulin Ratio 1.2 (1.0-2.8) Procalcitonin 0.12 (<0.5) ng/mL Chlamy pneumoniae PCR (Not Detect) Adenovirus (PCR) (Not Detect) B. pertussis DNA (PCR) (Not Detecte) B.parapertussis DNA PCR (Not Detecte) Coronavirus OC43 (PCR) (Not Detect) Coronavirus HKU1 (PCR) (Not Detect) Coronavirus 229E (PCR) (Not Detect) SARS-CoV-2 (PCR) (Not Detecte) Coronavirus NL63 (PCR) (Not Detect) Human Metapneumovir PCR (Not Detect) Influenza Type A (PCR) (Not Detect) Influenza Type B (PCR) (Not Detect) M. pneumoniae (PCR) (Not Detect) Parainfluenza 1 (PCR) (Not Detect) Parainfluenza 2 (PCR) (Not Detect) Parainfluenza 3 (PCR) (Not Detect) Parainfluenza 4 (PCR) (Not Detect) RSV (PCR) (Not Detect) Entero/Rhino (PCR) (Not Detect) 11/07/22 Range/Units 11:46 WBC (4.5-11.0) X10^3/uL RBC (4.0-5.2) X10^6/uL Hgb (12.0-16.0) g/dL Hct (36-46) % MCV (80-100) fL MCH (26-34) PG MCHC (30-36) % RDW (11.6-14.8) % Plt Count (150-400) X10^3/uL Neut % (Auto) (50-75) % Lymph % (Auto) (25-40) % [place] % (Auto) (3-14) % Eos % (Auto) (2-4) % Baso % (Auto) (0-2) % Neut # (Auto) (6943-2728) /uL Lymph # (Auto) (5929-0762) /uL [place] # (Auto) (0-900) /uL Eos # (Auto) (0-450) /uL Baso # (Auto) (0-100) /uL PT (10.1-12.7) SECONDS INR (0.9-1.3) Sodium (137-145) mmol/L Potassium (3.4-5.1) mmol/L Chloride (98-107) mmol/L Carbon Dioxide (22-32) mmol/L BUN (7-17) mg/dL Creatinine (0.52-1.04) mg/dL Estimated GFR (>60) mL/min BUN/Creatinine Ratio (6-22) Glucose (70-100) mg/dL Lactate 3.1 H (0.7-2.1) mmol/L Calcium (8.4-10.2) mg/dL Total Bilirubin (0.2-1.3) mg/dL AST (14-36) IU/L ALT (<35) IU/L Alkaline Phosphatase (38-126) U/L Total Creatine Kinase (30-135) U/L Troponin I (0.01-0.034) ng/mL NT-Pro-B Natriuret Pep (<125) pg/mL Total Protein (6.3-8.2) g/dL Albumin (3.5-5.0) g/dL Globulin (1.7-4.1) g/dL Albumin/Globulin Ratio (1.0-2.8) Procalcitonin (<0.5) ng/mL Chlamy pneumoniae PCR (Not Detect) Adenovirus (PCR) (Not Detect) B. pertussis DNA (PCR) (Not Detecte) B.parapertussis DNA PCR (Not Detecte) Coronavirus OC43 (PCR) (Not Detect) Coronavirus HKU1 (PCR) (Not Detect) Coronavirus 229E (PCR) (Not Detect) SARS-CoV-2 (PCR) (Not Detecte) Coronavirus NL63 (PCR) (Not Detect) Human Metapneumovir PCR (Not Detect) Influenza Type A (PCR) (Not Detect) Influenza Type B (PCR) (Not Detect) M. pneumoniae (PCR) (Not Detect) Parainfluenza 1 (PCR) (Not Detect) Parainfluenza 2 (PCR) (Not Detect) Parainfluenza 3 (PCR) (Not Detect) Parainfluenza 4 (PCR) (Not Detect) RSV (PCR) (Not Detect) Entero/Rhino (PCR) (Not Detect) MDM Narrative Medical decision making narrative: 57-year-old female with increased shortness of breath, decreased ability to ambulate while on her baseline oxygen, rapid drop in pulse ox. Respiratory panel noting parainfluenza. Imaging noting multifocal pneumonia. Lactate elevated. It is noted that she is been using her albuterol upwards of half a dozen if not more times per day compared to her baseline of every other day. She denies measured fever but has had chills. She is tachypneic and demonstrate s use of accessory muscles. Orthopnea, exertional dyspnea would suggest an element of CHF as well. Patient requires hospitalization for treatment and stabilization of her condition. Discussed with Dr. Echols hospitalist. He agrees to ring patient on his service. Discharge Plan Departure Patient Disposition: Admitted as Observation Clinical Impression: Acute dyspnea, Acute exacerbation of CHF (congestive heart failure), Parainfluenza, Acute exacerbation of chronic obstructive pulmonary disease Admit Date/Time: 11/07/22 15:25 Admit Provider: Armin Echols
[2022-11-07 10:08] LABS: INR 1.4 (0.9-1.3); Prothrombin Time 16.3 SECONDS (10.1-12.7)
[2022-11-07 10:13] LABS: Lactate (Lactic Acid) 3.2 mmol/L (0.7-2.1)
[2022-11-07 10:14] LABS: Alanine Aminotransferase 24 IU/L (<35); Albumin 4.1 g/dL (3.5-5.0); Albumin Globulin Ratio 1.2 (1.0-2.8); Alkaline Phosphatase 92 U/L (38-126); Aspartate Aminotransferase 25 IU/L (14-36); BUN Creatinine Ratio 16.7 (6-22); Bilirubin Total 0.5 mg/dL (0.2-1.3); Blood Urea Nitrogen 14 mg/dL (7-17); Calcium 9.6 mg/dL (8.4-10.2); Carbon Dioxide 30 mmol/L (22-32); Chloride 98 mmol/L (98-107); Creatine Kinase 28 U/L (30-135); Estimated Glomerular Filt Rate > 60 mL/min (>60); Globulin 3.4 g/dL (1.7-4.1); Glucose 193 mg/dL (70-100); HEMOLYSIS < 15 (0-50); Potassium 3.6 mmol/L (3.4-5.1); Sodium 138 mmol/L (137-145); Total Protein 7.5 g/dL (6.3-8.2)
[2022-11-07 10:26] LABS: NT-proBNP (BNP-Adult 18+) 1420 pg/mL (<125); Troponin I 0.017 ng/mL (0.01-0.034)
[2022-11-07 10:31] LABS: Procalcitonin 0.12 ng/mL (<0.5)
[2022-11-07 10:49] LABS: Adenovirus Not Detected (Not Detect); B. parapertussis Not Detected (Not Detecte); Bordetella pertussis Not Detected (Not Detecte); Chlamydophila pneumoniae Not Detected (Not Detect); Coronavirus 229E Not Detected (Not Detect); Coronavirus HKU1 Not Detected (Not Detect); Coronavirus NL 63 Not Detected (Not Detect); Coronavirus OC43 Not Detected (Not Detect); Human Metapneumovirus Not Detected (Not Detect); Human Rhinovirus/Enterovirus Not Detected (Not Detect); Influenza A Not Detected (Not Detect); Influenza B Not Detected (Not Detect); Mycoplasma pneumoniae Not Detected (Not Detect); Parainfluenza Virus 1 Not Detected (Not Detect); Parainfluenza Virus 2 Not Detected (Not Detect); Parainfluenza Virus 3 Not Detected (Not Detect); Parainfluenza Virus 4 Detected (Not Detect); Respiratory Syncytial Virus Not Detected (Not Detect); SARS- CoV-2 Not Detected (Not Detecte)
[2022-11-07] MEDS: FUROSEMIDE 40 MG/4 ML VIAL IV ×2 (11:05→17:30)
[2022-11-07] MEDS: cefTRIAXone 2,000 MG in SODIUM CHLORIDE 0.9% 100 ML 200 MG IV (11:05)
[2022-11-07 11:56] LABS: Reflexed Lactate in 2 Hours Y
[2022-11-07 12:11] LABS: Lactate 2HR (Lactic Acid Rflx) 3.1 mmol/L (0.7-2.1)
--- NOTE | 2022-11-07 12:34 | DI.CT.S_ITS ---
PROCEDURE: CT CHEST WO CON INDICATIONS: SOB, cough, CHF, resp failure TECHNIQUE: Noncontrast 5 mm thick sections acquired from the pulmonary apices to the posterior costophrenic angles. 1 mm lung window, 5 mm thick coronal and sagittal and 7 mm axial MIP reformats were then acquired. For radiation dose reduction, the following was used: automated exposure control, adjustment of mA and/or kV according to patient size. COMPARISON: [facility], CR, XR CHEST 1V, 11/07/2022, 9:54. FINDINGS: Image quality: Excellent. Lungs and pleura: Patchy reticular areas of airspace opacity in a tree-in-bud pattern are seen in the right middle lobe and right upper lobe. No focal consolidation or mass. No pneumothorax or pleural effusion. Mediastinum: Heart size is normal. No pericardial effusion. No mediastinal adenopathy by size criteria. Thoracic aorta and central pulmonary arteries are normal in size. Esophagus is normal in caliber. No hiatal hernia. Bones and chest wall: No suspicious bony lesions. No vertebral body compression fractures. No axillary or supraclavicular adenopathy by size criteria. Thyroid gland is normal . Abdomen: Visualized upper abdominal solid organs and bowel loops appear normal in the absence of contrast. IMPRESSION: Right middle lobe and right upper lobe reticular airspace opacities in a tree-in-bud pattern consistent with pneumonia, likely a atypical organism such as [id number]. Dictated by: Agustin Foster M.D. on 11/07/2022 at 13:18 Approved by: Agustin Foster M.D. on 11/07/2022 at 13:21
--- NOTE | 2022-11-07 15:47 | PM.HP.1 ---
History of Present Illness History of Present Illness Date Patient Seen: 11/07/22 Time Patient Seen: 15:47 Chief complaint: hard time breathing Narrative: 57-year-old female with COPD, chronic hypoxic respiratory failure (prescribed 2-3 L of oxygen continuously), chronic systolic congestive heart failure (EF 25%), coronary artery disease with her 1st VA at age 29 previous cardiac arrest status post pacemaker/AICD placement, diabetes mellitus type 2 on oral antidiabetic agents, class 3 obesity who left AMA from [facility] about 10 days ago after becoming frustrated with her care there (admitted for possible pneumonia but no further details known) who presents with worsening shortness of breath over the past few days. Patients states for the past few weeks she has been having increasing difficulties with orthopnea and at night has been gasping for air (PND). About three weeks ago she reportedly had a fracture in her R ankle as well that is being managed conservatively and she does take opiates at home for pain control, also for chronic neck pain. She reports inability to follow cardiac diet due to reported tony's ? disease though she is not on chronic steroid therapy and when the provider would not allow her to eat her usual diet in the hospital this is when she left [facility] most recently. She has no known sick contacts, and reports feeling chills but has no reported fever. Her cough has been productive of light green sputum, while normally she has none. She has had rhinorrhea the past couple of days as well. She has been wheezy and has increased inhaler and nebulizer use at home without success in control of her symptoms. She denies recent weight gain, but admits to LE edema, her appetite has been poor. In the emergency room, patient reportedly desaturated per the ER provider with minimal movement on her typical 3L of home O2, and she was tachypnic. She was given antibiotics, steroids, furosemide with improvement. By my evaluation she was saturating in the low 90s on 2L O2. She still complained of dyspnea with minimal movement. Respiratory panel was positive for parainfluenza 4. Procalcitonin was <0.25, probnp was 1420, troponin 0.017. WBC and remainder of CMP was unremarkable. She was admitted for further management of shortness of breath secondary to COPD exacerbation. [facility] Medical History CAD (coronary artery disease) Congestive heart failure COPD (chronic obstructive pulmonary disease) Surgical History AICD (automatic cardioverter/defibrillator) present H/O heart artery stent Social History household members: spouse lives independently: Yes Smoking Status: Current every day smoker alcohol intake: former Meds Home Medications and Allergies Home Medications Medication Instructions Recorded Confirmed Type albuterol sulfate 90 mcg/actuation 2 puff inhalation QID PRN 07/17/22 11/07/22 History aerosol inhaler (Ventolin HFA) Shortness Of Breath amiodarone 200 mg tablet 100 mg PO DAILY 07/17/22 11/07/22 History apixaban 5 mg tablet (Eliquis) 5 mg PO BID 07/17/22 11/07/22 History furosemide 40 mg tablet 80 mg PO DAILY 07/17/22 11/07/22 History lisinopril 5 mg tablet 5 mg PO DAILY 07/17/22 11/07/22 History spironolactone 25 mg tablet 25 mg PO DAILY 07/17/22 11/07/22 History glipizide 5 mg tablet, extended 5 mg PO DAILY #30 tabs 07/20/22 11/07/22 Rx release 24 hr (Glucotrol XL) oxycodone 5 mg tablet 5 mg PO Q4HR PRN pain #20 tabs 07/20/22 11/07/22 Rx albuterol sulfate 90 mcg/actuation 2 inh inhalation Q4H PRN Shortness 08/29/22 11/07/22 History breath activated powder inhaler Of Breath (ProAir RespiClick) dextromethorphan-guaifenesin 30 1 tab PO BEDTIME 08/29/22 11/07/22 History mg-600 mg tablet extended [id number] hr (Mucinex DM) methocarbamol 500 mg tablet 500 mg PO TID PRN Muscle Spasm 08/29/22 11/07/22 History metoprolol succinate 25 mg 25 mg PO BID 08/29/22 11/07/22 History tablet,extended release 24 hr multivitamin 1 tab PO DAILY 08/29/22 11/07/22 History promethazine 25 mg tablet 25 mg PO Q6H PRN Nausea 08/29/22 11/07/22 History fluticasone propionate 50 2 spray intranasal BID 11/07/22 11/07/22 History mcg/actuation nasal spray,suspension hydrocodone 5 mg-acetaminophen 325 1 tab PO Q6H PRN Pain (Scale Score 11/07/22 11/07/22 History mg tablet 1-3) ipratropium 20 mcg-albuterol 100 2 puff inhalation PRN PRN 11/07/22 11/07/22 History mcg/actuation mist for inhalation Shortness Of Breath (Combivent Respimat) Allergies Allergy/AdvReac Type Severity Reaction Status Date / Time bee pollen Allergy Severe Anaphylaxis Verified 11/07/22 09:35 Fish Containing Products Allergy Severe Anaphylaxis Verified 11/07/22 09:35 shellfish derived Allergy Severe Anaphylaxis Verified 11/07/22 09:35 acetaminophen [From Midol] Allergy Verified 11/07/22 09:35 codeine Allergy Verified 11/07/22 09:35 erythromycin base Allergy Verified 11/07/22 09:35 iodine Allergy Rash Verified 11/07/22 09:35 latex Allergy Rash Verified 11/07/22 09:35 pamabrom [From Midol] Allergy Verified 11/07/22 09:35 doxycycline AdvReac Vomiting Verified 11/07/22 09:35 Review of Systems Review of Systems Narrative: All other systems reviewed with the patient and are negative unless otherwise stated. Exam Vital Signs (past 8 hours): - 11/07/22 09:30 11/07/22 09:49 11/07/22 09:42 Temperature 99.9 F H Pulse Rate 80 80 82 Respiratory Rate 40 H 26 H Blood Pressure 125/79 Pulse Oximetry 90 L 91 94 Oxygen Delivery Method Room Air Venturi Mask Simple Mask Oxygen Flow Rate 3 3 Fraction of Inspired Oxygen 32 11/07/22 09:43 11/07/22 09:43 11/07/22 09:50 Temperature Pulse Rate 83 Respiratory Rate 40 H Blood Pressure 94/50 L 102/57 L Pulse Oximetry 92 Oxygen Delivery Method Simple Mask Oxygen Flow Rate 3 Fraction of Inspired Oxygen 11/07/22 09:50 11/07/22 10:00 11/07/22 10:00 Temperature Pulse Rate 76 75 Respiratory Rate 30 H 29 H Blood Pressure 93/53 L Pulse Oximetry 91 94 Oxygen Delivery Method Simple Mask Oximask Oxygen Flow Rate 3 3 Fraction of Inspired Oxygen 11/07/22 10:10 11/07/22 10:10 11/07/22 10:20 Temperature Pulse Rate 78 73 Respiratory Rate 26 H 30 H Blood Pressure 100/45 L Pulse Oximetry 94 95 Oxygen Delivery Method Oxygen Flow Rate Fraction of Inspired Oxygen 11/07/22 10:30 11/07/22 10:31 11/07/22 10:31 Temperature Pulse Rate 71 74 Respiratory Rate 29 H 30 H Blood Pressure 98/55 L Pulse Oximetry 96 97 Oxygen Delivery Method Oximask Oxygen Flow Rate 3 Fraction of Inspired Oxygen 11/07/22 10:40 11/07/22 10:40 11/07/22 10:50 Temperature Pulse Rate 77 74 Respiratory Rate 28 H 33 H Blood Pressure 94/51 L Pulse Oximetry 93 92 Oxygen Delivery Method Oxygen Flow Rate Fraction of Inspired Oxygen 11/07/22 10:51 11/07/22 10:51 11/07/22 11:00 Temperature Pulse Rate 78 Respiratory Rate 32 H Blood Pressure 114/55 L 116/56 L Pulse Oximetry 93 Oxygen Delivery Method Oxygen Flow Rate Fraction of Inspired Oxygen 11/07/22 11:00 11/07/22 11:10 11/07/22 11:10 Temperature Pulse Rate 74 75 Respiratory Rate 33 H 30 H Blood Pressure 102/53 L Pulse Oximetry 94 93 Oxygen Delivery Method Oximask Oxygen Flow Rate 3 Fraction of Inspired Oxygen 11/07/22 11:20 11/07/22 11:20 11/07/22 11:30 Temperature Pulse Rate 73 77 Respiratory Rate 37 H 34 H Blood Pressure 108/49 L Pulse Oximetry 91 92 Oxygen Delivery Method Oximask Oxygen Flow Rate 3 Fraction of Inspired Oxygen 11/07/22 11:31 11/07/22 11:31 11/07/22 11:40 Temperature Pulse Rate 83 Respiratory Rate 36 H Blood Pressure 130/86 120/70 Pulse Oximetry 92 Oxygen Delivery Method Oxygen Flow Rate Fraction of Inspired Oxygen 11/07/22 11:40 11/07/22 11:50 11/07/22 11:51 Temperature Pulse Rate 82 74 79 Respiratory Rate 14 33 H 37 H Blood Pressure Pulse Oximetry 92 91 91 Oxygen Delivery Method Oxygen Flow Rate Fraction of Inspired Oxygen 11/07/22 11:51 11/07/22 12:00 11/07/22 12:00 Temperature Pulse Rate 69 Respiratory Rate 35 H Blood Pressure 102/56 L 103/59 L Pulse Oximetry 92 Oxygen Delivery Method Oximask Oxygen Flow Rate 3 Fraction of Inspired Oxygen 11/07/22 12:10 11/07/22 12:10 11/07/22 12:20 Temperature Pulse Rate 68 64 Respiratory Rate 34 H 33 H Blood Pressure 107/53 L Pulse Oximetry 93 94 Oxygen Delivery Method Oxygen Flow Rate Fraction of Inspired Oxygen 11/07/22 12:21 11/07/22 12:21 11/07/22 12:30 Temperature Pulse Rate 66 Respiratory Rate 29 H Blood Pressure 120/59 L 108/56 L Pulse Oximetry 94 Oxygen Delivery Method Oxygen Flow Rate Fraction of Inspired Oxygen 11/07/22 12:30 11/07/22 12:40 11/07/22 12:40 Temperature Pulse Rate 62 62 Respiratory Rate 24 24 Blood Pressure 112/56 L Pulse Oximetry 95 95 Oxygen Delivery Method Oximask Venturi Mask Oxygen Flow Rate 3 3 Fraction of Inspired Oxygen 11/07/22 12:50 11/07/22 12:50 11/07/22 13:06 Temperature Pulse Rate 65 68 Respiratory Rate 26 H 26 H Blood Pressure 114/58 L Pulse Oximetry 92 92 Oxygen Delivery Method Oxygen Flow Rate Fraction of Inspired Oxygen 11/07/22 13:35 Temperature Pulse Rate Respiratory Rate Blood Pressure 112/58 L Pulse Oximetry Oxygen Delivery Method Oxygen Flow Rate Fraction of Inspired Oxygen Fraction of Inspired Oxygen 32 SaO2/FiO2 Ratio 284 Oxygen Delivery Method Venturi Mask Oxygen Flow Rate 3 Narrative Exam Narrative: GEN: no acute distress, well appearing sitting upright in hospital bed with full box of [place] at bedside. HEENT: moist mucous membranes, PERRL NECK: trachea midline, no JVD PULM: diffuse inspiratory and expriatory wheezing, with bilateral crackles CV: irregular, no murmurs ABD: soft, nontender, nondistended, no organomegaly, normal bowel sounds EXT: warm and well perfused with trace peripheral edema NEURO: awake, alert, oriented, no focal deficits Objective Labs 11/07/22 09:52 11/07/22 09:52 Labs: Laboratory Results - last 24 hr 11/07/22 11/07/22 11/07/22 09:33 09:52 09:52 WBC 7.7 RBC 4.85 Hgb 15.6 Hct 46.2 H MCV 95.3 MCH 32.2 MCHC 33.8 RDW 13.5 Plt Count 221 Neut % (Auto) 61.6 Lymph % (Auto) 24.3 L [place] % (Auto) 9.6 Eos % (Auto) 3.8 Baso % (Auto) 0.7 Neut # (Auto) 4700 Lymph # (Auto) 1900 [place] # (Auto) 700 Eos # (Auto) 300 Baso # (Auto) 100 PT 16.3 H INR 1.4 H Sodium Potassium Chloride Carbon Dioxide BUN Creatinine Estimated GFR BUN/Creatinine Ratio Glucose Lactate Calcium Total Bilirubin AST ALT Alkaline Phosphatase Total Creatine Kinase Troponin I NT-Pro-B Natriuret Pep Total Protein Albumin Globulin Albumin/Globulin Ratio Procalcitonin Chlamy pneumoniae PCR Not detected Adenovirus (PCR) Not detected B. pertussis DNA (PCR) Not detected B.parapertussis DNA PCR Not detected Coronavirus OC43 (PCR) Not detected Coronavirus HKU1 (PCR) Not detected Coronavirus 229E (PCR) Not detected SARS-CoV-2 (PCR) Not detected Coronavirus NL63 (PCR) Not detected Human Metapneumovir PCR Not detected Influenza Type A (PCR) Not detected Influenza Type B (PCR) Not detected M. pneumoniae (PCR) Not detected Parainfluenza 1 (PCR) Not detected Parainfluenza 2 (PCR) Not detected Parainfluenza 3 (PCR) Not detected Parainfluenza 4 (PCR) Detected H RSV (PCR) Not detected Entero/Rhino (PCR) Not detected 11/07/22 11/07/22 11/07/22 09:52 09:52 09:52 WBC RBC Hgb Hct MCV MCH MCHC RDW Plt Count Neut % (Auto) Lymph % (Auto) [place] % (Auto) Eos % (Auto) Baso % (Auto) Neut # (Auto) Lymph # (Auto) [place] # (Auto) Eos # (Auto) Baso # (Auto) PT INR Sodium 138 Potassium 3.6 Chloride 98 Carbon Dioxide 30 BUN 14 Creatinine 0.84 Estimated GFR > 60 BUN/Creatinine Ratio 16.7 Glucose 193 H Lactate 3.2 H Calcium 9.6 Total Bilirubin 0.5 AST 25 ALT 24 Alkaline Phosphatase 92 Total Creatine Kinase 28 L Troponin I 0.017 NT-Pro-B Natriuret Pep 1420 H Total Protein 7.5 Albumin 4.1 Globulin 3.4 Albumin/Globulin Ratio 1.2 Procalcitonin 0.12 Chlamy pneumoniae PCR Adenovirus (PCR) B. pertussis DNA (PCR) B.parapertussis DNA PCR Coronavirus OC43 (PCR) Coronavirus HKU1 (PCR) Coronavirus 229E (PCR) SARS-CoV-2 (PCR) Coronavirus NL63 (PCR) Human Metapneumovir PCR Influenza Type A (PCR) Influenza Type B (PCR) M. pneumoniae (PCR) Parainfluenza 1 (PCR) Parainfluenza 2 (PCR) Parainfluenza 3 (PCR) Parainfluenza 4 (PCR) RSV (PCR) Entero/Rhino (PCR) 11/07/22 11:46 WBC RBC Hgb Hct MCV MCH MCHC RDW Plt Count Neut % (Auto) Lymph % (Auto) [place] % (Auto) Eos % (Auto) Baso % (Auto) Neut # (Auto) Lymph # (Auto) [place] # (Auto) Eos # (Auto) Baso # (Auto) PT INR Sodium Potassium Chloride Carbon Dioxide BUN Creatinine Estimated GFR BUN/Creatinine Ratio Glucose Lactate 3.1 H Calcium Total Bilirubin AST ALT Alkaline Phosphatase Total Creatine Kinase Troponin I NT-Pro-B Natriuret Pep Total Protein Albumin Globulin Albumin/Globulin Ratio Procalcitonin Chlamy pneumoniae PCR Adenovirus (PCR) B. pertussis DNA (PCR) B.parapertussis DNA PCR Coronavirus OC43 (PCR) Coronavirus HKU1 (PCR) Coronavirus 229E (PCR) SARS-CoV-2 (PCR) Coronavirus NL63 (PCR) Human Metapneumovir PCR Influenza Type A (PCR) Influenza Type B (PCR) M. pneumoniae (PCR) Parainfluenza 1 (PCR) Parainfluenza 2 (PCR) Parainfluenza 3 (PCR) Parainfluenza 4 (PCR) RSV (PCR) Entero/Rhino (PCR) Assessment & Plan Assessment & Plan narrative: 1. COPD with exacerbation - exacerbation probably due to viral pneumonia - RT eval and treat, start nebulizer therapies and albuterol as needed - continue prednisone 40 mg for 5 day total course of steroids. 2. Parainfluenza pneumonia - symptomatic care will be provided. With negative procalcitonin, no leukocytosis will not treat for now with antibiotics. But should symptoms worsen may consider superimposed bacterial component. 3. Acute on chronic systolic heart failure - suspect in the setting of dietary issues for the patient ([employer] box at patient's bedside on admission). - consider dietary consult, though patient is resistant to this and has left AMA recently due to dietary discussions, may not be to the benefit of the patient at this time. 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 - rule out ACS with a 2nd troponin. Will order EKG. - CTA negative for PE - continue home lisinopril and metoprolol 4. Possible acute on chronic hypoxemic respiratory failure - patient desaturates on 3L on the ER, now on 2L at rest in her hospital bed. She is typically on 3L at home. Will see with above therapies if there is improvement. - CTA negative for PE. Did show tree and bud pattern consistent with possible viral pneumonia. 5. Coronary artery disease with prior [facility] Troponin here is negative. Will repeat given presentation to rule out an ACS component to her symptoms. 6. History of cardiac arrest, status post pacemaker/AICD placement Per outside records, she reports receiving a shock a couple of times a year.? I am uncertain when she last had her device interrogated. 7. Atrial fibrillation on chronic anticoagulation with Eliquis - continue eliquis 8. Diabetes mellitus type [address] fingersticks and sliding scale. 9. Class 3 obesity with BMI of 40 Her obesity puts her at significant risk of morbidity and mortality.? Would greatly benefit from weight reduction though she has lost weight recently. 10. Chronic pain syndrome continue home medications 12. Hypertension continue home medications 13. Hyperlipidemia Continue home medications 14. Recent ankle fracture - continue patient's brace when ambulating. No weight bearing restrictions are known at this time. 15. Elevated lactate, -suspect elevated due to hepatic congestion, do not suspect sepsis given patient's improvement thus far with interventions. Also possible elevation from her albuterol use recently. Code: Full surrogate is patient's daughter and granddaughter. DVT: on Apixaban Dispo: pending above evaluation and response to therapies, possible discharge home with home health tomorrow depending on patient's symptoms. I have utilized all available immediate resources to obtain, update, or review the patient's current medications. Additional history obtained via review of prior documentation and discussion with the ER provider. Discussed plan with patient. I have reviewed patient's imaging, doucmentation, and laboratory evaluations from this admission and previous encounters.
[2022-11-07] MEDS: ONDANSETRON 4 MG/2 ML INJ IV (17:30)
[2022-11-07 18:15] LABS: Lactate (Lactic Acid) 2.7 mmol/L (0.7-2.1)
[2022-11-07 18:16] LABS: Troponin I < 0.012 ng/mL (0.01-0.034)
[2022-11-07 20:08] LABS: Reflexed Lactate in 2 Hours Y
[2022-11-07] MEDS: BUDESONIDE 0.5 MG/2 ML NEB INH (20:10)
[2022-11-07] MEDS: ALBUTEROL 2.5 MG/3 ML NEB (ADULT) INH ×2 (20:10→22:41)
[2022-11-07 20:49] LABS: Lactate 2HR (Lactic Acid Rflx) 3.3 mmol/L (0.7-2.1)
[2022-11-07] MEDS: FLUTICASONE 120 SPRAY/16 GM SPRAY.SUSP NASAL (21:44)
[2022-11-07] MEDS: INSULIN LISPRO 100 UNIT/ML 3ML VIAL SUBCUT (21:52)
[2022-11-07] MEDS: LORazepam 2 MG/ML INJ 1 MG IV (22:50)
--- NOTE | 2022-11-07 22:51 | RT ---
At 2004 on 11/07/22, spoke to the pt at length regarding her increased WOB and dyspnea. Spoke to the pt regarding the possibility of HHFNC or BiPAP to help ease her WOB. Pt refused both interventions. Provider Alysha Randolph notified. Pt's RN Mohinder also aware. Will cont. to monitor the pt.
[2022-11-08] VITALS (16 sets, daily range): BP systolic 96–106; BP diastolic 45–55; PULSE 40–87; RESP 19–30; TEMP 35.9–36.2; O2SAT 93–97
[2022-11-08 05:38] LABS: Add Manual Diff / Slide Review NO; Basophils Absolute Auto 0 /uL (0-100); Basophils Percent Auto 0.3 % (0-2); Eosinophils Absolute Auto 0 /uL (0-450); Hematocrit 42.2 % (36-46); Hemoglobin 14.3 g/dL (12.0-16.0); Lymphocytes Absolute Auto 800 /uL (1100-4500); Lymphocytes Percent Auto 6.1 % (25-40); Mean Corpuscular HGB Conc 33.9 % (30-36); Mean Corpuscular Hemoglobin 31.8 PG (26-34); Mean Corpuscular Volume 93.8 fL (80-100); Monocytes Absolute Auto 500 /uL (0-900); Monocytes Percent Auto 3.7 % (3-14); Neutrophils Absolute Auto 11800 /uL (1500-7000); Neutrophils Percent Auto 89.9 % (50-75); Platelet Count 216 X10^3/uL (150-400); Red Cell Distribution Width 13.4 % (11.6-14.8); White Blood Cell Count 13.1 X10^3/uL (4.5-11.0)
[2022-11-08 05:48] LABS: Alanine Aminotransferase 23 IU/L (<35); Albumin 3.8 g/dL (3.5-5.0); Albumin Globulin Ratio 1.2 (1.0-2.8); Alkaline Phosphatase 84 U/L (38-126); Aspartate Aminotransferase 19 IU/L (14-36); BUN Creatinine Ratio 19.6 (6-22); Bilirubin Total 0.3 mg/dL (0.2-1.3); Blood Urea Nitrogen 28 mg/dL (7-17); Calcium 9.3 mg/dL (8.4-10.2); Carbon Dioxide 33 mmol/L (22-32); Chloride 95 mmol/L (98-107); Estimated Glomerular Filt Rate 42 mL/min (>60); Globulin 3.3 g/dL (1.7-4.1); Glucose 213 mg/dL (70-100); HEMOLYSIS < 15 (0-50); Magnesium 1.8 mg/dL (1.6-2.3); Potassium 3.9 mmol/L (3.4-5.1); Sodium 136 mmol/L (137-145); Total Protein 7.1 g/dL (6.3-8.2)
[2022-11-08] MEDS: ALBUTEROL/IPRATROPIUM 3 ML AMPUL INH ×4 (06:00→23:33)
[2022-11-08] MEDS: FUROSEMIDE 40 MG/4 ML VIAL IV (06:15)
[2022-11-08] MEDS: FLUTICASONE 120 SPRAY/16 GM SPRAY.SUSP NASAL ×2 (08:27→20:57)
[2022-11-08] MEDS: INSULIN LISPRO 100 UNIT/ML 3ML VIAL SUBCUT ×4 (08:31→20:58)
[2022-11-08] MEDS: MULTIVITAMIN 1 TABLET 1 TAB PO (08:34)
[2022-11-08] MEDS: AMIODARONE 200 MG TABLET 100 MG PO (08:41)
[2022-11-08] MEDS: APIXABAN 5 MG TABLET PO ×2 (08:42→20:57)
[2022-11-08] MEDS: BUDESONIDE 0.5 MG/2 ML NEB INH ×2 (09:14→19:15)
[2022-11-08] MEDS: LIDOCAINE PATCH 1 EACH ADH..PATCH TOP (09:41)
[2022-11-08] MEDS: HYDROCODONE/ACET 5/325 TABLET 1 TAB PO (11:44)
[2022-11-08] MEDS: methocarbamoL 500 MG TABLET PO (14:10)
--- NOTE | 2022-11-08 15:16 | P.PN_ITS ---
Subjective Subjective Interval history: Patient says her breathing is still poor. She doesn't feel very well with headache and neck pain. Her main focus seems to be on her neck pain. Exam Vital Signs (past 8 hours): - 11/08/22 07:56 11/08/22 08:31 11/08/22 09:18 Temperature 97.2 F L Pulse Rate 40 L 70 Respiratory Rate 20 Blood Pressure 106/51 L Pulse Oximetry 94 95 Oxygen Delivery Method Oximask Oxygen Flow Rate 5 11/08/22 09:30 11/08/22 13:31 Temperature Pulse Rate 40 L Respiratory Rate Blood Pressure 106/51 L Pulse Oximetry 95 Oxygen Delivery Method Nasal Cannula Oxygen Flow Rate 5 Fraction of Inspired Oxygen 32 SaO2/FiO2 Ratio 284 Oxygen Delivery Method Nasal Cannula Oxygen Flow Rate 5 Narrative Exam Narrative: GEN: no acute distress, well appearing sitting upright in hospital bed with full box of [place] at bedside. HEENT: moist mucous membranes, PERRL NECK: trachea midline, no JVD PULM: diffuse inspiratory and expriatory wheezing, with bilateral crackles CV: irregular, no murmurs ABD: soft, nontender, nondistended, no organomegaly, normal bowel sounds EXT: warm and well perfused with trace peripheral edema NEURO: awake, alert, oriented, no focal deficits Objective Labs 11/08/22 05:24 11/08/22 05:24 Labs: Laboratory Results - last 24 hr 11/07/22 11/07/22 11/07/22 17:45 17:45 20:20 WBC RBC Hgb Hct MCV MCH MCHC RDW Plt Count Neut % (Auto) Lymph % (Auto) [place] % (Auto) Eos % (Auto) Baso % (Auto) Neut # (Auto) Lymph # (Auto) [place] # (Auto) Eos # (Auto) Baso # (Auto) Sodium Potassium Chloride Carbon Dioxide BUN Creatinine Estimated GFR BUN/Creatinine Ratio Glucose Lactate 2.7 H 3.3 H Calcium Magnesium Total Bilirubin AST ALT Alkaline Phosphatase Troponin I < 0.012 Total Protein Albumin Globulin Albumin/Globulin Ratio 11/08/22 11/08/22 05:24 05:24 WBC 13.1 H D RBC 4.50 Hgb 14.3 Hct 42.2 MCV 93.8 MCH 31.8 MCHC 33.9 RDW 13.4 Plt Count 216 Neut % (Auto) 89.9 H D Lymph % (Auto) 6.1 L [place] % (Auto) 3.7 Eos % (Auto) 0.0 L Baso % (Auto) 0.3 Neut # (Auto) 55361 H Lymph # (Auto) 800 L [place] # (Auto) 500 Eos # (Auto) 0 Baso # (Auto) 0 Sodium 136 L Potassium 3.9 Chloride 95 L Carbon Dioxide 33 H BUN 28 H Creatinine 1.43 H Estimated GFR 42 L BUN/Creatinine Ratio 19.6 Glucose 213 H Lactate Calcium 9.3 Magnesium 1.8 Total Bilirubin 0.3 AST 19 ALT 23 Alkaline Phosphatase 84 Troponin I Total Protein 7.1 Albumin 3.8 Globulin 3.3 Albumin/Globulin Ratio 1.2 PFSH Medical History CAD (coronary artery disease) Congestive heart failure COPD (chronic obstructive pulmonary disease) Surgical History AICD (automatic cardioverter/defibrillator) present H/O heart artery stent Social History household members: spouse lives independently: Yes Smoking Status: Current every day smoker alcohol intake: former Assessment & Plan Assessment & Plan narrative: 1. COPD with exacerbation - exacerbation probably due to viral pneumonia - RT eval and treat, start nebulizer therapies and albuterol as needed - continue methylprednisolone IV BID for COPD exacerbation. 2. Parainfluenza pneumonia - symptomatic care will be provided. With negative procalcitonin, no leukocytosis will not treat for now with antibiotics. But should symptoms worsen or her symptoms linger may consider superimposed bacterial component. 3. chronic systolic heart failure, acute likely ruled out or overdiuresed. - Last TTE 08/27 with EF 25-30%, new echo will not currently change management lead unless troponin elevation on repeat. - CTA negative for PE - patient was presumed volume overloaded based on orthopnea, however developed ALISSA after 3 doses of 40 mg IV lasix. Lasix held for now, pending creatinine improvement. - continue home lisinopril and metoprolol 4. Possible acute on chronic hypoxemic respiratory failure - patient desaturates on 3L on the ER, She is typically on 3L at home. Will see with above therapies if there is improvement. Slight increase to 5L but significant waxing and waning over the day with oxygen needs. - CTA negative for PE. Did show tree and bud pattern consistent with possible viral pneumonia. 5. Coronary artery disease with prior [place] Troponin here is negative. Will repeat given presentation to rule out an ACS c omponent to her symptoms. 6. History of cardiac arrest, status post pacemaker/AICD placement Per outside records, she reports receiving a shock a couple of times a year.? I am uncertain when she last had her device interrogated. 7. Atrial fibrillation on chronic anticoagulation with Eliquis - continue eliquis 8. Diabetes mellitus type [address] fingersticks and sliding scale. 9. Class 3 obesity with BMI of 40 Her obesity puts her at significant risk of morbidity and mortality.? Would greatly benefit from weight reduction though she has lost weight recently. 10. Chronic pain syndrome continue home medications 12. Hypertension continue home medications 13. Hyperlipidemia Continue home medications 14. Recent ankle fracture - continue patient's brace when ambulating. No weight bearing restrictions are known at this time. 15. Elevated lactate, -suspect elevated due to hepatic congestion, do not suspect sepsis given patient's improvement thus far with interventions. Also possible elevation from her albuterol use recently. 16. ALISSA, not present on admission - suspect due to overdiuresis given presentation. will hold on furosemide until renal function improves. Code: Full surrogate is patient's daughter and granddaughter. DVT: on Apixaban Dispo: inaptient, probably discharge home in a couple of days time.
--- NOTE | 2022-11-08 15:23 | CM.DANOTE ---
Patient is a 57 yo female who was admitted on 11/07/22 for SOB. Pt has [facility] MCR for insurance and her PCP is Jolene Steen. EMR was reviewed. Per MD, pt with complex medically hx with her heart, lungs, and kidneys and admitted for COPD exacerbation, ALISSA, and possible CHF. PCP: Jolene Steen Payer: [facility] MCR Met w/patient to review DCP; patient says she lives alone in her 5th wheel in [place] and her ex spouse (still legally ) visits daily. Patient says they are friends and that she feels a responsibility to look after her spouse and they are supportive of each other but her SSI is deposited into a bank account that they still share and he still helps financially if she needs it as she lives mostly check to check. Patient relies on her grand daughter Kris to help with transportation and assist w/errands, grocery shopping and some light house keeping but Kris's vehicle is currently broken down and not working. Patient and Kris are looking into she becoming patient's KARTIK caregiver since her last admit in August 2022 this year but pt states she has been unable to complete the application and turn it in to see if she qualifies for KARTIK. Pt became tearful stating she has become progressively worse with her SOB and feels she has not been able to manage her ADLs but especially chores. Patient has a hx of [facility] but her insurance is now not accepted [facility] and they forwarded her referral to [facility] recently. SW called [facility] and confirmed pt is currently open with them and will just need Resume Orders at d/c. SW provided pt with the TSOA/KARTIK Medicaid application for [facility] to begin completed while admitted and SW can fax and call [facility] to follow up if pt completes. Pt appreciative and will begin working on the application. Plan: SW to follow closely for plan of return to home with Resume [facility] and will request [facility] have [facility] support pt with [facility]. GEORGE Mcclain Discharge Planning/Care Management CM Discharge Assessment Start: 11/08/22 15:19 Freq: Status: Active Protocol: Document 11/08/22 15:19 BF (Rec: 11/08/22 15:23 BF [id number]) Discharge Planning Assessment Assigned Biotechnologist Albertina, [employer] DPOA/Assigned Designee Name jrery Ponce Contact Information [phone] Advance Directives? No Advance Directives on File No History Provided By Patient,Medical Record Has Patient been admitted in last 30 No days? Comment Last admit in July 2022 and August 2022 Prior Living Arrangements RV Comment 5th wheel RV Household Members none Type of transporation used prior to Relies on Others admit Independent with ADL's No Is patient alert and oriented? Yes Needs Assistance With Meal Prep,Managing Medications ,Home Chores / Shopping Caregiver for Another No Community Services used prior to Physical Therapy,Home Health admission: Nurse Comment Open with [facility] Already Rented / Owned FWW / Walker,Cane Patient/Family Preference Home with Home Health Barriers to Discharge No Comment Home w/HH expected upon discharge. Family or friends to transport home Discharge Plan Home with Home Health Community Services Physical Therapy,Home Health Nurse Transportation Arrangement Likely spouse or family to provide transport Referrals Initiated Home Health Additional Comment Pt open with [facility] If patient plan is home with home health No: Resume HH, no F2F needed : Has signed face to face form been completed? Has Agency SNF been contacted Yes Whiteboard Updated in Patient Room with Yes name and ext. # of Biotechnologist Review Status In Process Please Provide Date Initial DC 11/08/22 Assessment Was Performed Next Review Type Continued Stay Review
[2022-11-08] MEDS: BUTALB/APAP/CAFFEINE 50/325/40 TABLET 1 EACH PO (18:22)
--- NOTE | 2022-11-08 18:47 | PC.NURSE ---
Addendum entered by Kristen Abernathy R.N. 11/08/22 18:53: notified patient up to BR and telemetry reading 13 beat run of vtach, she denies symptoms at this time and resolves after getting back to bed. Original Note: pt A&OX4. She c/o cluster headache and neck pain 6-9/10 pain today. DBP 40's and 50's antihypertensive medications held. HR 50's-80's upon sleeping HR 38-40's. She reports headache worse with ambulating and dizziness with ambulating. She is tearful at times and reports not much relief from PRN pain medications. notified and she is ordered fiorcet this evening. Noted wheezes on inspiration and expiration throughout and SOB at rest increased wtih activity. She maintained 02 sats 95-97 on 5 L oxymizer this shift. Continued monitoring.
[2022-11-08] MEDS: INSULIN GLARGINE 100 UNIT/ML 3ML PEN 10 UNIT SUBCUT (20:59)
[2022-11-08] MEDS: ONDANSETRON 4 MG/2 ML INJ IV (22:01)
[2022-11-08] MEDS: SODIUM CHLORIDE 0.9% FLUSH 10 ML IV (22:02)
[2022-11-09] VITALS (13 sets, daily range): BP systolic 109–131; BP diastolic 47–58; PULSE 40–79; RESP 20–26; TEMP 35.6–36.7; O2SAT 89–97
[2022-11-09] MEDS: HYDROCODONE/ACET 5/325 TABLET 1 TAB PO ×3 (00:24→23:20)
[2022-11-09 06:00] LABS: Add Manual Diff / Slide Review NO; Basophils Absolute Auto 100 /uL (0-100); Basophils Percent Auto 0.8 % (0-2); Eosinophils Absolute Auto 0 /uL (0-450); Hemoglobin 13.6 g/dL (12.0-16.0); Lymphocytes Absolute Auto 700 /uL (1100-4500); Lymphocytes Percent Auto 3.8 % (25-40); Mean Corpuscular HGB Conc 33.9 % (30-36); Mean Corpuscular Volume 94.2 fL (80-100); Monocytes Absolute Auto 400 /uL (0-900); Neutrophils Absolute Auto 17100 /uL (1500-7000); Neutrophils Percent Auto 93.4 % (50-75); Platelet Count 208 X10^3/uL (150-400); Red Blood Cell Count 4.25 X10^6/uL (4.0-5.2); White Blood Cell Count 18.3 X10^3/uL (4.5-11.0)
[2022-11-09 06:08] LABS: Alanine Aminotransferase 24 IU/L (<35); Albumin 3.7 g/dL (3.5-5.0); Albumin Globulin Ratio 1.2 (1.0-2.8); Alkaline Phosphatase 95 U/L (38-126); Aspartate Aminotransferase 26 IU/L (14-36); BUN Creatinine Ratio 36.1 (6-22); Bilirubin Total 0.4 mg/dL (0.2-1.3); Blood Urea Nitrogen 43 mg/dL (7-17); Carbon Dioxide 30 mmol/L (22-32); Chloride 91 mmol/L (98-107); Estimated Glomerular Filt Rate 53 mL/min (>60); Globulin 3.2 g/dL (1.7-4.1); Glucose 270 mg/dL (70-100); Magnesium 2.1 mg/dL (1.6-2.3); Sodium 128 mmol/L (137-145); Total Protein 6.9 g/dL (6.3-8.2)
[2022-11-09 06:15] LABS: HEMOLYSIS 66 (0-50)
[2022-11-09 06:16] LABS: Potassium 4.5 mmol/L (3.4-5.1)
[2022-11-09] MEDS: BUDESONIDE 0.5 MG/2 ML NEB INH ×2 (07:27→19:09)
[2022-11-09] MEDS: ALBUTEROL/IPRATROPIUM 3 ML AMPUL INH ×4 (07:27→19:09)
--- NOTE | 2022-11-09 07:44 | P.PN_ITS ---
Subjective Subjective Interval history: Patient complaining of headache, neck pain, and accessory muscle pain. She is still on 5L O2. Exam Vital Signs (past 8 hours): - 11/09/22 00:00 11/09/22 03:00 11/09/22 07:27 Temperature 96.6 F L 96.1 F L Pulse Rate 79 74 48 L Respiratory Rate 23 23 22 Blood Pressure 119/47 L 121/58 L Pulse Oximetry 97 92 96 Oxygen Delivery Method Oximask Oxygen Flow Rate 5 5 5 Fraction of Inspired Oxygen 40 Fraction of Inspired Oxygen 40 SaO2/FiO2 Ratio 240 Oxygen Delivery Method Oximask Oxygen Flow Rate 5 Narrative Exam Narrative: GEN: no acute distress, appears uncomfortable HEENT: moist mucous membranes, PERRL NECK: trachea midline, no JVD PULM: diffuse inspiratory and expiratory wheezing, with bilateral crackles CV: irregular, no murmurs ABD: soft, nontender, nondistended, no organomegaly, normal bowel sounds EXT: warm and well perfused with trace peripheral edema NEURO: awake, alert, oriented, no focal deficits Objective Labs 11/09/22 05:38 11/09/22 05:38 Labs: Laboratory Results - last 24 hr 11/09/22 11/09/22 05:38 05:38 WBC 18.3 H RBC 4.25 Hgb 13.6 Hct 40.0 MCV 94.2 MCH 32.0 MCHC 33.9 RDW 13.0 Plt Count 208 Neut % (Auto) 93.4 H Lymph % (Auto) 3.8 L [place] % (Auto) 2.0 L Eos % (Auto) 0.0 L Baso % (Auto) 0.8 Neut # (Auto) 36173 H Lymph # (Auto) 700 L [place] # (Auto) 400 Eos # (Auto) 0 Baso # (Auto) 100 Sodium 128 L Potassium 4.5 Chloride 91 L Carbon Dioxide 30 BUN 43 H Creatinine 1.19 H Estimated GFR 53 L BUN/Creatinine Ratio 36.1 H Glucose 270 H Calcium 9.0 Magnesium 2.1 Total Bilirubin 0.4 AST 26 ALT 24 Alkaline Phosphatase 95 Total Protein 6.9 Albumin 3.7 Globulin 3.2 Albumin/Globulin Ratio 1.2 PFSH Medical History CAD (coronary artery disease) Congestive heart failure COPD (chronic obstructive pulmonary disease) Surgical History AICD (automatic cardioverter/defibrillator) present H/O heart artery stent Social History household members: none lives independently: Yes Smoking Status: Current every day smoker alcohol intake: former Assessment & Plan Assessment & Plan narrative: 1. COPD with exacerbation - exacerbation probably due to viral pneumonia - RT eval and treat, start nebulizer therapies and albuterol as needed - continue methylprednisolone IV BID for COPD exacerbation. 2. Parainfluenza pneumonia with possible superimposed bacterial pneumonia - Resp PCR positive for parainflu - WBC increased during admission, which may be from IV steroids but cannot definitely rule out pneumonia given CT chest with R lobe tree-in-bud pattern - start rocephin and azithro 3. chronic systolic heart failure, acute likely ruled out or overdiuresed. - Last TTE 08/27 with EF 25-30%, new echo will not currently change coordinator unless troponin elevation on repeat. - CTA negative for PE - patient was presumed volume overloaded based on orthopnea, however developed ALISSA after 3 doses of 40 mg IV lasix. Lasix held for now, pending creatinine improvement. - continue home lisinopril and metoprolol 4. Acute on chronic hypoxemic respiratory failure - patient desaturates on 3L on the ER, She is typically on 3L at home. Will see with above therapies if there is improvement. Slight increase to 5L but significant waxing and waning over the day with oxygen needs. - CTA negative for PE. Did show tree and bud pattern consistent with possible pneumonia. - currently on 5L NC, wean as able 5. Coronary artery disease with prior [place] Troponin here is negative. Will repeat given presentation to rule out an ACS component to her symptoms. 6. History of cardiac arrest, status post pacemaker/AICD placement Per outside records, she reports receiving a shock a couple of times a year.? I am uncertain when she last had her device interrogated. 7. Atrial fibrillation on chronic anticoagulation with Eliquis - continue eliquis 8. Diabetes mellitus type 2 - lantus 25 units daily due to hyperglycemia with IV steroids - Will place on fingersticks and high dose sliding scale. 9. Class 3 obesity with BMI of 40 - Her obesity puts her at significant risk of morbidity and mortality.? Would greatly benefit from weight reduction though she has lost weight recently. 10. Chronic pain syndrome - continue home medications 12. Hypertension - continue home medications 13. Hyperlipidemia - Continue home medications 14. Recent ankle fracture - continue patient's brace when ambulating. No weight bearing restrictions are known at this time. 15. Elevated lactate -suspect elevated due to hepatic congestion, do not suspect sepsis given patient's improvement thus far with interventions. Also possible elevation from her albuterol use recently. 16. ALISSA, not present on admission, improving - suspect due to overdiuresis given presentation. will hold on furosemide until renal function improves. - Cr now downtrending 17. Hyponatremia, not present on admission - Na dropped to 128 from 138 with diuresis - start IVF Code: Full surrogate is patient's daughter and granddaughter. DVT prophylaxis: Apixaban Dispo: Home in 2-3 days.
[2022-11-09] MEDS: cefTRIAXone 1,000 MG in SODIUM CHLORIDE 0.9% 100 ML 200 MG IV (09:19)
[2022-11-09] MEDS: FLUTICASONE 120 SPRAY/16 GM SPRAY.SUSP NASAL ×2 (09:20→20:54)
[2022-11-09] MEDS: APIXABAN 5 MG TABLET PO ×2 (09:20→20:54)
[2022-11-09] MEDS: AMIODARONE 200 MG TABLET 100 MG PO (09:20)
[2022-11-09] MEDS: AZITHROMYCIN 250 MG TABLET 500 MG PO (09:21)
[2022-11-09] MEDS: LIDOCAINE PATCH 1 EACH ADH..PATCH TOP (09:21)
[2022-11-09] MEDS: SODIUM CHLORIDE 0.9% FLUSH 10 ML IV ×2 (09:22→21:18)
[2022-11-09] MEDS: MULTIVITAMIN 1 TABLET 1 TAB PO (09:22)
[2022-11-09] MEDS: INSULIN LISPRO 100 UNIT/ML 3ML VIAL SUBCUT ×4 (09:24→21:08)
[2022-11-09] MEDS: HYDROMORPHONE 0.5 MG INJ IV ×3 (09:30→17:52)
[2022-11-09] MEDS: CYCLOBENZAPRINE 10 MG TABLET PO (10:40)
--- NOTE | 2022-11-09 15:13 | CM.DPC ---
DCP Cont: Per MD, pt continues with a bad headache and need for increased oxygen and breathing tx and IV-Abx and steroids and not yet stable for d/c. SW met bedside briefly with pt and she confirms that she was able to complete the Medicaid application for KARTIK/TSOA and SW made a copy and faxed to [facility] along with the Expedited referral. Plan: SW to follow for pt progress to confirm safe d/c home with granddtr assist and any further identified discharge planning needs. GEORGE Mcclain
[2022-11-09] MEDS: SODIUM CHLORIDE 0.9% 1,000 ML 100 ML IV (16:04)
--- NOTE | 2022-11-09 18:13 | PC.NURSE ---
Pt A&Ox4. VSS, afebrile 02 remains stable on 5L oxymask. She has very little tolerance for activity walking to the BR, using FWW. She is tearful as she reports head pressure cluster headache pain and neck pain increase with ambulating to 9/10. She is medicated with PRN medication for complaints of pain and tightness. She reports pain improves to 7 or 8/10, she appears somewhat relaxed and is able to talk on the phone. She has a good appetite and drinking multiple pitchers of icewater this shift. IVF NS at 100ml/hr. Continous monitoring.
--- NOTE | 2022-11-09 20:01 | PC.NURSE ---
SPO2 when ambulating to the BR with 5 liters O2 dropped down to the 70-80's. After 1-2 minutes of rest her sat. up to the 93-95. Encouraged patient to use the BSC for tonight. Will cont. POC & monitor.
[2022-11-09] MEDS: METOPROLOL ER 25 MG TABLET PO (21:00)
[2022-11-09] MEDS: INSULIN GLARGINE 100 UNIT/ML 3ML PEN 25 UNIT SUBCUT (21:10)
[2022-11-09] MEDS: ALBUTEROL 2.5 MG/3 ML NEB (ADULT) INH (21:29)
[2022-11-10] VITALS (13 sets, daily range): BP systolic 110–127; BP diastolic 46–57; PULSE 60–72; RESP 20–28; TEMP 35.7–36.9; O2SAT 91–99
[2022-11-10] MEDS: ALBUTEROL 2.5 MG/3 ML NEB (ADULT) INH ×2 (04:23→09:25)
[2022-11-10 05:56] LABS: Add Manual Diff / Slide Review NO; Basophils Absolute Auto 0 /uL (0-100); Basophils Percent Auto 0.1 % (0-2); Eosinophils Absolute Auto 0 /uL (0-450); Hemoglobin 13.4 g/dL (12.0-16.0); Lymphocytes Absolute Auto 800 /uL (1100-4500); Lymphocytes Percent Auto 4.9 % (25-40); Mean Corpuscular HGB Conc 32.8 % (30-36); Mean Corpuscular Hemoglobin 31.3 PG (26-34); Mean Corpuscular Volume 95.6 fL (80-100); Monocytes Absolute Auto 400 /uL (0-900); Monocytes Percent Auto 2.6 % (3-14); Neutrophils Absolute Auto 15600 /uL (1500-7000); Neutrophils Percent Auto 92.4 % (50-75); Platelet Count 227 X10^3/uL (150-400); Red Blood Cell Count 4.29 X10^6/uL (4.0-5.2); Red Cell Distribution Width 13.7 % (11.6-14.8); White Blood Cell Count 16.9 X10^3/uL (4.5-11.0)
[2022-11-10 06:07] LABS: Alanine Aminotransferase 26 IU/L (<35); Albumin 3.9 g/dL (3.5-5.0); Albumin Globulin Ratio 1.3 (1.0-2.8); Alkaline Phosphatase 95 U/L (38-126); Aspartate Aminotransferase 22 IU/L (14-36); BUN Creatinine Ratio 38.9 (6-22); Bilirubin Total 0.2 mg/dL (0.2-1.3); Blood Urea Nitrogen 37 mg/dL (7-17); Calcium 9.4 mg/dL (8.4-10.2); Carbon Dioxide 32 mmol/L (22-32); Chloride 96 mmol/L (98-107); Estimated Glomerular Filt Rate > 60 mL/min (>60); Glucose 204 mg/dL (70-100); HEMOLYSIS < 15 (0-50); Potassium 5.1 mmol/L (3.4-5.1); Sodium 134 mmol/L (137-145); Total Protein 6.9 g/dL (6.3-8.2)
[2022-11-10] MEDS: HYDROCODONE/ACET 5/325 TABLET 1 TAB PO (06:33)
[2022-11-10] MEDS: INSULIN LISPRO 100 UNIT/ML 3ML VIAL SUBCUT ×4 (08:48→21:15)
[2022-11-10] MEDS: SODIUM CHLORIDE 0.9% FLUSH 10 ML IV ×2 (08:51→21:05)
[2022-11-10] MEDS: AZITHROMYCIN 250 MG TABLET 500 MG PO (08:51)
[2022-11-10] MEDS: cefTRIAXone 1,000 MG in SODIUM CHLORIDE 0.9% 100 ML 200 MG IV (08:54)
[2022-11-10] MEDS: APIXABAN 5 MG TABLET PO ×2 (08:55→21:01)
[2022-11-10] MEDS: FLUTICASONE 120 SPRAY/16 GM SPRAY.SUSP NASAL ×2 (08:55→21:02)
[2022-11-10] MEDS: AMIODARONE 200 MG TABLET 100 MG PO (08:55)
[2022-11-10] MEDS: MULTIVITAMIN 1 TABLET 1 TAB PO (08:55)
[2022-11-10] MEDS: LIDOCAINE PATCH 1 EACH ADH..PATCH TOP ×2 (08:56→09:34)
[2022-11-10] MEDS: HYDROMORPHONE 0.5 MG INJ IV (09:29)
[2022-11-10] MEDS: BUDESONIDE 0.5 MG/2 ML NEB INH ×2 (09:30→19:50)
[2022-11-10] MEDS: HYDROMORPHONE 1 MG INJ IV ×3 (11:41→20:59)
[2022-11-10] MEDS: INSULIN GLARGINE 100 UNIT/ML 3ML PEN 25 UNIT SUBCUT ×2 (11:44→21:02)
[2022-11-10] MEDS: ALBUTEROL/IPRATROPIUM 3 ML AMPUL INH ×2 (13:05→19:50)
--- NOTE | 2022-11-10 13:45 | PM.PN.1 ---
Subjective Subjective Interval history: Patient's neck pain and headaches continue. She says she has a h/o cluster headaches but this is the worst one in a while. Icing and lido patch helps some. Pain is so intense she wants to cry. Breathing is about the same. Exam Vital Signs (past 8 hours): - 11/10/22 07:45 11/10/22 09:21 11/10/22 09:25 Temperature 96.9 F L Pulse Rate 60 60 68 Respiratory Rate 20 24 Blood Pressure 110/50 L 110/50 L Pulse Oximetry 98 97 Oxygen Delivery Method Oximask Oxygen Flow Rate 5 5 11/10/22 09:33 11/10/22 11:27 11/10/22 13:05 Temperature 96.8 F L Pulse Rate 72 68 68 Respiratory Rate 22 20 20 Blood Pressure 110/46 L Pulse Oximetry 94 93 Oxygen Delivery Method Oximask Oxygen Flow Rate 5 4 Fraction of Inspired Oxygen 40 SaO2/FiO2 Ratio 232 Oxygen Delivery Method Oximask Oxygen Flow Rate 4 Narrative Exam Narrative: GEN: no acute distress, appears uncomfortable HEENT: moist mucous membranes, PERRL, neck muscles very hypertonic in suboccipital region extending to traps NECK: trachea midline, no JVD PULM: diffuse inspiratory and expiratory wheezing, with bilateral crackles CV: irregular, no murmurs ABD: soft, nontender, nondistended, no organomegaly, normal bowel sounds EXT: warm and well perfused with trace peripheral edema NEURO: awake, alert, oriented, no focal deficits Objective Labs 11/10/22 05:15 11/10/22 05:15 Labs: Laboratory Results - last 24 hr 11/10/22 11/10/22 05:15 05:15 WBC 16.9 H RBC 4.29 Hgb 13.4 Hct 41.0 MCV 95.6 MCH 31.3 MCHC 32.8 RDW 13.7 Plt Count 227 Neut % (Auto) 92.4 H Lymph % (Auto) 4.9 L [place] % (Auto) 2.6 L Eos % (Auto) 0.0 L Baso % (Auto) 0.1 Neut # (Auto) 70527 H Lymph # (Auto) 800 L [place] # (Auto) 400 Eos # (Auto) 0 Baso # (Auto) 0 Sodium 134 L Potassium 5.1 Chloride 96 L Carbon Dioxide 32 BUN 37 H Creatinine 0.95 Estimated GFR > 60 BUN/Creatinine Ratio 38.9 H Glucose 204 H Calcium 9.4 Total Bilirubin 0.2 AST 22 ALT 26 Alkaline Phosphatase 95 Total Protein 6.9 Albumin 3.9 Globulin 3.0 Albumin/Globulin Ratio 1.3 [facility] Medical History CAD (coronary artery disease) Congestive heart failure COPD (chronic obstructive pulmonary disease) Surgical History AICD (automatic cardioverter/defibrillator) present H/O heart artery stent Social History household members: none lives independently: Yes Smoking Status: Current every day smoker alcohol intake: former Assessment & Plan Assessment & Plan narrative: 1. COPD with exacerbation - exacerbation probably due to viral pneumonia - RT eval and treat, start nebulizer therapies and albuterol as needed - continue methylprednisolone IV BID for COPD exacerbation. 2. Parainfluenza pneumonia with possible superimposed bacterial pneumonia - Resp PCR positive for parainflu - WBC increased during admission, which may be from IV steroids but cannot definitely rule out pneumonia given CT chest with R lobe tree-in-bud pattern - start rocephin and azithro 3. chronic systolic heart failure, acute likely ruled out or overdiuresed. - Last TTE 08/27 with EF 25-30%, new echo will not currently change management consultant unless troponin elevation on repeat. - CTA negative for PE - patient was presumed volume overloaded based on orthopnea, however developed ALISSA after 3 doses of 40 mg IV lasix. Lasix held for now, pending creatinine improvement. - continue home lisinopril and metoprolol 4. Acute on chronic hypoxemic respiratory failure - patient desaturates on 3L on the ER, She is typically on 3L at home. Will see with above therapies if there is improvement. Slight increase to 5L but significant waxing and waning over the day with oxygen needs. - CTA negative for PE. Did show tree and bud pattern consistent with possible pneumonia. - currently on 5L NC, wean as able 5. Coronary artery disease with prior [place] Troponin here is negative. Will repeat given presentation to rule out an ACS component to her symptoms. 6. History of cardiac arrest, status post pacemaker/AICD placement Per outside records, she reports receiving a shock a couple of times a year.? I am uncertain when she last had her device interrogated. 7. Atrial fibrillation on chronic anticoagulation with Eliquis - continue eliquis 8. Diabetes mellitus type 2 - lantus 25 units BID due to hyperglycemia with IV steroids - Will place on fingersticks and high dose sliding scale. 9. Class 3 obesity with BMI of 40 - Her obesity puts her at significant risk of morbidity and mortality.? Would greatly benefit from weight reduction though she has lost weight recently. 10. Chronic pain syndrome - continue home medications 12. Hypertension - continue home medications 13. Hyperlipidemia - Continue home medications 14. Recent ankle fracture - continue patient's brace when ambulating. No weight bearing restrictions are known at this time. 15. Elevated lactate -suspect elevated due to hepatic congestion, do not suspect sepsis given patient's improvement thus far with interventions. Also possible elevation from her albuterol use recently. 16. ALISSA, not present on admission, resolved - suspect due to overdiuresis given presentation. will hold on furosemide until renal function improves. - Cr now normal with IVF 17. Hyponatremia, not present on admission. Improved. - Na dropped to 128 from 138 with diuresis - IVF improved Na to 134 - monitor 18. Cervicogenic headache - patient had spastic, hypertonic muscles on exam - performed bedside OMM with suboccipital release and muscle kneading with immediate improvement in pain - muscle relaxers and pain meds PRN Code: Full surrogate is patient's daughter and granddaughter. DVT prophylaxis: Apixaban Dispo: Home in 1-2 days.
--- NOTE | 2022-11-10 16:22 | CM.DPC ---
DCP Continued: LINE SERVICE TECHNICIAN reviewed EMR. From provider in rounds, likely d/c home tomorrow. Provider reported patient is currently on 5ltrs of 02 and her baseline is 2-3ltrs. LINE SERVICE TECHNICIAN entered room and introduced self and role. Patient was sitting up in phone and appeared A/Ox4. LINE SERVICE TECHNICIAN gave original KARTIK paperwork back to patient. Patient continues to be okay with [facility] d/c plan when medically stable. Plan: d/c home when medically stable with granddaughter to assist as well as the resumption of [facility], add LINE SERVICE TECHNICIAN for resources. CM team to continue to follow closely. GEORGE Porter
[2022-11-10] MEDS: METOPROLOL ER 25 MG TABLET PO (21:04)
[2022-11-10] MEDS: BENZOCAINE/MENTHOL 1 LOZ PKT 1 EACH PO (22:07)
[2022-11-10] MEDS: CYCLOBENZAPRINE 10 MG TABLET PO (22:21)
[2022-11-11] VITALS (15 sets, daily range): BP systolic 106–115; BP diastolic 47–78; PULSE 60–73; RESP 20–24; TEMP 35.8–36.2; O2SAT 92–96
[2022-11-11] MEDS: ONDANSETRON 4 MG/2 ML INJ IV ×2 (01:19→09:38)
[2022-11-11] MEDS: HYDROMORPHONE 1 MG INJ IV ×3 (01:19→17:11)
[2022-11-11] MEDS: SODIUM CHLORIDE 0.9% FLUSH 10 ML IV ×4 (01:20→21:06)
[2022-11-11] MEDS: methocarbamoL 500 MG TABLET PO (01:42)
[2022-11-11] MEDS: LORazepam 1 MG TABLET PO ×3 (02:24→18:36)
--- NOTE | 2022-11-11 03:54 | PC.NURSE ---
Addendum entered by Karissa Stockton R.N. 11/11/22 06:22: Now patient awake and O2 sat 93% so decreased oxygen back to 3.5L/min Original Note: Patient is alert and oriented although easily fatigued and anxious. Breath sounds coarse with both inspiratory and expiratory wheezing and rhonchi. Endorses cough but has been non productive. Complains of sore throat from coughing so obtained order for cepacol lozenge and was administered. Was on oxygen at 3.5L/min per oximask with sat of 93% but dropped down to 80% when getting up to bathroom. Is currently asleep (after having received ativan) with sat at 88% so titrated oxygen up to 7L/min with sat of 89%. HRR and telemetry reading at 2000 was SR w/BBB and at 0000 was a-paced. Did have an episode of nausea and was medicated with zofran at 0119 w/resolution. BT hypoactive and denies flatus; last BM was 7/4 but states she has sometimes gone 10 days without stool. Is voiding on toile and denies dysuria but does have some urgency so is wearing a brief. Is able to move by herself but is weak so requires walker with 1 assist when up to bathroom. Bilateral ankle puffiness. Complains of headache and neck pain and has been medicated with IV Dilaudid + Flexeril and Robaxin for pain but states her pain never gets better than a 7.5/10; has had ice pack to neck. Agustín GRAHAM, was contacted regarding patient's anxiety and continued pain and ativan order received and patient is currently asleep after receiving the ativan at 0224. Remains on droplet precautions because is + for parainfluenzae. Blood glucose levels remain high but had insulin dose adjustment today. Fall risk score is high but patient refuses to have alarm placed so verbalizes agreement to call and wait for assistance before attempting to get up. Is sleeping in recliner.
[2022-11-11 06:26] LABS: Add Manual Diff / Slide Review NO; Basophils Absolute Auto 0 /uL (0-100); Basophils Percent Auto 0.3 % (0-2); Eosinophils Absolute Auto 0 /uL (0-450); Hematocrit 41.4 % (36-46); Hemoglobin 13.9 g/dL (12.0-16.0); Lymphocytes Absolute Auto 600 /uL (1100-4500); Lymphocytes Percent Auto 4.3 % (25-40); Mean Corpuscular HGB Conc 33.5 % (30-36); Mean Corpuscular Hemoglobin 31.7 PG (26-34); Mean Corpuscular Volume 94.5 fL (80-100); Monocytes Absolute Auto 500 /uL (0-900); Monocytes Percent Auto 3.8 % (3-14); Neutrophils Absolute Auto 13100 /uL (1500-7000); Neutrophils Percent Auto 91.6 % (50-75); Platelet Count 227 X10^3/uL (150-400); Red Blood Cell Count 4.38 X10^6/uL (4.0-5.2); Red Cell Distribution Width 13.9 % (11.6-14.8); White Blood Cell Count 14.3 X10^3/uL (4.5-11.0)
[2022-11-11 06:27] LABS: Alanine Aminotransferase 33 IU/L (<35); Albumin 3.8 g/dL (3.5-5.0); Albumin Globulin Ratio 1.3 (1.0-2.8); Alkaline Phosphatase 95 U/L (38-126); Aspartate Aminotransferase 23 IU/L (14-36); BUN Creatinine Ratio 39.8 (6-22); Bilirubin Total 0.3 mg/dL (0.2-1.3); Blood Urea Nitrogen 37 mg/dL (7-17); Calcium 9.3 mg/dL (8.4-10.2); Carbon Dioxide 34 mmol/L (22-32); Chloride 97 mmol/L (98-107); Estimated Glomerular Filt Rate > 60 mL/min (>60); Globulin 2.9 g/dL (1.7-4.1); Glucose 227 mg/dL (70-100); HEMOLYSIS < 15 (0-50); Potassium 5.4 mmol/L (3.4-5.1); Sodium 134 mmol/L (137-145); Total Protein 6.7 g/dL (6.3-8.2)
[2022-11-11] MEDS: INSULIN LISPRO 100 UNIT/ML 3ML VIAL SUBCUT ×4 (08:27→21:01)
[2022-11-11] MEDS: INSULIN GLARGINE 100 UNIT/ML 3ML PEN 25 UNIT SUBCUT ×2 (08:28→20:59)
[2022-11-11] MEDS: cefTRIAXone 1,000 MG in SODIUM CHLORIDE 0.9% 100 ML 200 MG IV (08:29)
[2022-11-11] MEDS: SODIUM ZIRCONIUM CYCLOSILICATE 10 GM POWD.PACK PO (08:30)
[2022-11-11] MEDS: polyethylene glycoL 3350 17 GM POWD.PACK PO (08:30)
[2022-11-11] MEDS: AZITHROMYCIN 250 MG TABLET 500 MG PO (08:35)
[2022-11-11] MEDS: SENNOSIDES 8.6 MG TABLET PO ×2 (08:35→21:05)
[2022-11-11] MEDS: lisinopriL 5 MG TABLET PO (08:35)
[2022-11-11] MEDS: AMIODARONE 200 MG TABLET 100 MG PO (08:35)
[2022-11-11] MEDS: APIXABAN 5 MG TABLET PO ×2 (08:36→20:59)
[2022-11-11] MEDS: MULTIVITAMIN 1 TABLET 1 TAB PO (08:36)
[2022-11-11] MEDS: SPIRONOLACTONE 25 MG TABLET PO (08:36)
[2022-11-11] MEDS: OXYCODONE IR 5 MG TABLET PO (08:36)
[2022-11-11] MEDS: METOPROLOL ER 25 MG TABLET PO ×2 (08:36→21:05)
[2022-11-11] MEDS: FLUTICASONE 120 SPRAY/16 GM SPRAY.SUSP NASAL ×2 (08:43→20:59)
[2022-11-11] MEDS: ALBUTEROL/IPRATROPIUM 3 ML AMPUL INH ×3 (08:45→19:16)
[2022-11-11] MEDS: BUDESONIDE 0.5 MG/2 ML NEB INH ×2 (08:55→19:17)
--- NOTE | 2022-11-11 13:54 | P.PN_ITS ---
Subjective Subjective Interval history: Patient now down to her baseline 3L O2. She is still complaining of a headache and neck pain. Night nurses massaged her neck which helped some. Exam Vital Signs (past 8 hours): - 11/11/22 07:10 11/11/22 07:11 11/11/22 08:35 Temperature Pulse Rate 61 Respiratory Rate Blood Pressure 114/78 Pulse Oximetry 92 92 Oxygen Delivery Method Nasal Cannula Nasal Cannula Oxygen Flow Rate 5 5 11/11/22 08:36 11/11/22 07:50 11/11/22 08:45 Temperature 97.2 F L Pulse Rate 61 63 68 Respiratory Rate 22 22 Blood Pressure 114/78 114/78 Pulse Oximetry 94 96 Oxygen Delivery Method Oximask Oxygen Flow Rate 3.5 4 11/11/22 08:55 11/11/22 09:41 11/11/22 07:00 Temperature Pulse Rate 70 62 Respiratory Rate 20 Blood Pressure Pulse Oximetry Oxygen Delivery Method Nasal Cannula Oxygen Flow Rate 11/11/22 11:00 11/11/22 13:31 Temperature 96.7 F L Pulse Rate 73 60 Respiratory Rate 24 20 Blood Pressure 109/48 L Pulse Oximetry 96 94 Oxygen Delivery Method Oximask Oxygen Flow Rate 3.5 3.5 Fraction of Inspired Oxygen 40 SaO2/FiO2 Ratio 232 Oxygen Delivery Method Oximask Oxygen Flow Rate 3.5 Narrative Exam Narrative: GEN: no acute distress, appears uncomfortable HEENT: moist mucous membranes, PERRL NECK: trachea midline, no JVD PULM: diffuse inspiratory and expiratory wheezing, with bilateral crackles CV: irregular, no murmurs MSK: neck muscles very hypertonic in suboccipital region extending to traps ABD: soft, nontender, nondistended, no organomegaly, normal bowel sounds EXT: warm and well perfused with trace peripheral edema NEURO: awake, alert, oriented, no focal deficits Objective Labs 11/11/22 06:00 11/11/22 06:00 Labs: Laboratory Results - last 24 hr 11/11/22 11/11/22 06:00 06:00 WBC 14.3 H RBC 4.38 Hgb 13.9 Hct 41.4 MCV 94.5 MCH 31.7 MCHC 33.5 RDW 13.9 Plt Count 227 Neut % (Auto) 91.6 H Lymph % (Auto) 4.3 L Bacon % (Auto) 3.8 Eos % (Auto) 0.0 L Baso % (Auto) 0.3 Neut # (Auto) 38300 H Lymph # (Auto) 600 L Bacon # (Auto) 500 Eos # (Auto) 0 Baso # (Auto) 0 Sodium 134 L Potassium 5.4 H Chloride 97 L Carbon Dioxide 34 H BUN 37 H Creatinine 0.93 Estimated GFR > 60 BUN/Creatinine Ratio 39.8 H Glucose 227 H Calcium 9.3 Total Bilirubin 0.3 AST 23 ALT 33 Alkaline Phosphatase 95 Total Protein 6.7 Albumin 3.8 Globulin 2.9 Albumin/Globulin Ratio 1.3 PFSH Medical History CAD (coronary artery disease) Congestive heart failure COPD (chronic obstructive pulmonary disease) Surgical History AICD (automatic cardioverter/defibrillator) present H/O heart artery stent Social History household members: none lives independently: Yes Smoking Status: Current every day smoker alcohol intake: former Assessment & Plan Assessment & Plan narrative: 1. COPD with exacerbation, improving - exacerbation probably due to viral pneumonia - RT eval and treat, start nebulizer therapies and albuterol as needed - continue methylprednisolone IV BID for COPD exacerbation. 2. Parainfluenza pneumonia with possible superimposed bacterial pneumonia - Resp PCR positive for parainflu - WBC increased during admission, which may be from IV steroids but cannot definitely rule out pneumonia given CT chest with R lobe tree-in-bud pattern - start rocephin and azithro 3. chronic systolic heart failure, acute likely ruled out or overdiuresed. - Last TTE 08/27 with EF 25-30%, new echo will not currently change management specialist unless troponin elevation on repeat. - CTA negative for PE - patient was presumed volume overloaded based on orthopnea, however developed ALISSA after 3 doses of 40 mg IV lasix. Lasix held for now, pending creatinine improvement. - continue home lisinopril and metoprolol 4. Acute on chronic hypoxemic respiratory failure, acute now resolved - patient desaturates on 3L on the ER, She is typically on 3L at home. Will see with above therapies if there is improvement. Slight increase to 5L but significant waxing and waning over the day with oxygen needs. - CTA negative for PE. Did show tree and bud pattern consistent with possible pneumonia. - now back to baseline O2 at 3L 5. Coronary artery disease with prior [place] - Troponin here is negative. Will repeat given presentation to rule out an ACS component to her symptoms. 6. History of cardiac arrest, status post pacemaker/AICD placement - Per outside records, she reports receiving a shock a couple of times a year.? I am uncertain when she last had her device interrogated. 7. Atrial fibrillation on chronic anticoagulation with Eliquis - continue eliquis 8. Diabetes mellitus type 2 - lantus 25 units BID due to hyperglycemia with IV steroids - Will place on fingersticks and high dose sliding scale. 9. Class 3 obesity with BMI of 40 - Her obesity puts her at significant risk of morbidity and mortality.? Would greatly benefit from weight reduction though she has lost weight recently. 10. Chronic pain syndrome - continue home medications 12. Hypertension - continue home medications 13. Hyperlipidemia - Continue home medications 14. Recent ankle fracture - continue patient's brace when ambulating. No weight bearing restrictions are known at this time. 15. Elevated lactate -suspect elevated due to hepatic congestion, do not suspect sepsis given patient's improvement thus far with interventions. Also possible elevation from her albuterol use recently. 16. ALISSA, not present on admission, resolved - suspect due to overdiuresis given presentation. will hold on furosemide until renal function improves. - Cr now normal with IVF 17. Hyponatremia, not present on admission. Improved. - Na dropped to 128 from 138 with diuresis - IVF improved Na to 134 - monitor 18. Cervicogenic headache and severe neck pain - patient had spastic, hypertonic muscles on exam - performed bedside OMM with suboccipital release and muscle kneading with immediate improvement in pain - muscle relaxers and pain meds PRN - still not improving so will image with CT noncon head/cervical spine Code: Full surrogate is patient's daughter and granddaughter. DVT prophylaxis: Apixaban Dispo: Home in 1-2 days.
--- NOTE | 2022-11-11 14:09 | DI.CT.S_ITS ---
PROCEDURE: CT CERVICAL SPINE WO CON INDICATIONS: severe neck pain TECHNIQUE: Noncontrast 3 mm thick sections acquired from the skull base to the T4 level. Sagittal and coronal reformats were then constructed. For radiation dose reduction, the following was used: automated exposure control, adjustment of mA and/or kV according to patient size. COMPARISON: None. FINDINGS: Image quality: Excellent. Bones: No fractures or dislocations. Visualized superior ribs are intact. Multilevel degenerative changes. Degenerative disc disease. Soft tissues: Prevertebral soft tissues are normal in thickness. No paravertebral hematomas. No apical pneumothoraces. IMPRESSION: No acute abnormality of the neck. Dictated by: Agustin Foster M.D. on 11/11/2022 at 14:38 Approved by: Agustin Foster M.D. on 11/11/2022 at 14:39
--- NOTE | 2022-11-11 14:09 | DI.CT.S_ITS ---
PROCEDURE: CT HEAD/BRAIN WO CON INDICATIONS: severe headache TECHNIQUE: Noncontrast 4.5 mm thick angled axial sections acquired from the foramen magnum to the vertex, with coronal and sagittal reformats. For radiation dose reduction, the following was used: automated exposure control, adjustment of mA and/or kV according to patient size. COMPARISON: None. FINDINGS: Image quality: Excellent. CSF spaces: Basal cisterns are patent. No extra-axial fluid collections. Ventricles are normal in size and shape. Brain: No midline shift. No intracranial masses or hemorrhage. Sheldon-white matter interface is normal. Skull and face: Calvarium and visualized facial bones are intact, without suspicious lesions. Sinuses: Visualized sinuses and mastoids are clear. IMPRESSION: No acute intracranial abnormality. Dictated by: Agustin Foster M.D. on 11/11/2022 at 14:36 Approved by: Agustin Foster M.D. on 11/11/2022 at 14:37
[2022-11-11] MEDS: HYDROMORPHONE 0.5 MG INJ IV ×2 (14:29→18:36)
[2022-11-11] MEDS: CYCLOBENZAPRINE 10 MG TABLET PO (21:06)
--- NOTE | 2022-11-11 23:32 | PC.NURSE ---
Patient is alert and oriented; tearful at times. Breath sounds w/expiratory wheezes/rhonchi throughout and becomes SOB/dyspneic with exertion; on oxygen at 4L/min per oximask with sat of 92%. When asleep mouth breathes but sat at 93-94% so decreased oxygen back to 3L/min which is what she uses at home; is on continuous oximetry. HRR w/telemetry reading of a-paced. Denies nausea. BT present and had BM at shift change. Voiding frequently and has some urgency/stress incontinence. Due to SOB and weakness/fatigue, is using BSC tonight when up to void; also uses walker and needs 1 assist. Is able to move herself; sleeping in recliner at night. Bilateral LE non-pitting edema and noted to have cool/cyanotic toes tonight; blanchable. Agustín GRAHAM, was informed of toes cyanosis/cool temperature. Whenever asked patient states she is having 9/10 head/neck pain but is able to carry on conversation despite pain. Discussed with her the need to try to control pain with po pain meds to include muscle relaxants and she is agreeable to that. Discussed this with GLADYS and she stopped the IV pain medication and switched her to po pain meds. Was medicated with Flexeril with hs meds and has been mostly sleeping since. She does use ice packs for pain relief as well. CBG's continue to be elevated at least partially related to steroid use. Remains on droplet precautions due to parainfluenzae.
[2022-11-12] VITALS (12 sets, daily range): BP systolic 100–112; BP diastolic 41–63; PULSE 60–66; RESP 18–22; TEMP 35.9–36.2; O2SAT 90–94
[2022-11-12] MEDS: HYDROMORPHONE 2 MG TABLET PO ×3 (05:46→17:47)
--- NOTE | 2022-11-12 07:46 | P.PN_ITS ---
Subjective Subjective Date Patient Seen: 11/12/22 Time Patient Seen: 10:24 Interval history: She is seen today to follow-up her COPD, chronic neck pain and hypoxia. She has received several doses of Dilaudid and oxycodone already this morning. When I visit with her she is sound asleep, apparently sedated by the pain medicine but about 30 minutes later she tells the TELEGRAPH OFFICE TELEPHONE CLERK that she is having 9/10 neck pain and needs more pain medicine. She explains to me that she lives in a [address] in [place]. We will be stopping her telemetry today. She continues to wheeze heavily so the Solu-Medrol dose will be increased to 60 mg IV Q 8. Her white blood count is 14.3 platelets of 227. The sodium is 134 with a potassium of 5.4 and a glucose of 222. The creatinine is normal. She should be safe to have ibuprofen for a limited period in addition to the opioids. Exam Vital Signs (past 8 hours): - 11/12/22 00:30 11/12/22 00:30 11/12/22 04:30 Temperature 96.7 F L 97.0 F L Pulse Rate 60 60 Respiratory Rate 22 22 Blood Pressure 100/51 L 103/50 L Pulse Oximetry 94 91 Oxygen Flow Rate 3 3 3 Fraction of Inspired Oxygen 40 SaO2/FiO2 Ratio 232 Oxygen Delivery Method Oximask Oxygen Flow Rate 3 Narrative Exam Narrative: The patient is asleep but with some effort and examined Alejandro's she eventually wakes up and is fully oriented. No apparent distress. Heart is regular rate and rhythm without murmur Lungs have heavy wheezing bilaterally. Extremities have no ankle edema. Objective Labs 11/11/22 06:00 11/11/22 06:00 [facility] Medical History CAD (coronary artery disease) Congestive heart failure COPD (chronic obstructive pulmonary disease) Surgical History AICD (automatic cardioverter/defibrillator) present H/O heart artery stent Social History household members: none lives independently: Yes Smoking Status: Current every day smoker alcohol intake: former Assessment & Plan Assessment & Plan narrative: 1. COPD with exacerbation, improving ?- exacerbation probably due to viral pneumonia ?- RT eval and treat, start nebulizer therapies and albuterol as needed ?- continue methylprednisolone IV, increased on 11/12 up to 60 mg q.8 hours 2. Parainfluenza pneumonia with possible superimposed bacterial pneumonia ?- Resp PCR positive for parainflu ?- WBC increased during admission, which may be from IV steroids but cannot definitely rule out pneumonia given CT chest with R lobe tree-in-bud pattern ?-continue on rocephin and azithromycin 3. chronic systolic heart failure, acute likely ruled out or overdiuresed. 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 Lasix held for now. ?- continue home lisinopril and metoprolol 4. Acute on chronic hypoxemic respiratory failure, acute now resolved ?- patient desaturates on 3L on the ER, She is typically on 3L at home. Will see with above therapies if there is improvement. Slight increase to 5L but significant waxing and waning over the day with oxygen needs. ?- CTA negative for PE. Did show tree and bud pattern consistent with possible pneumonia. ?- now back to baseline O2 at 3L 5. Coronary artery disease with prior PR - Troponin was negative. 6. History of cardiac arrest, status post pacemaker/AICD placement - Per outside records, she reports receiving a shock a couple of times a year.? It is unclear when she last had her device interrogated. 7. Atrial fibrillation on chronic anticoagulation with Eliquis ?- continue eliquis 8. Diabetes mellitus type 2 - lantus 25 units BID due to hyperglycemia with IV steroids -continue high dose sliding scale. 9. Class 3 obesity with BMI of 40 - Her obesity puts her at significant risk of morbidity and mortality.? Would gr eatly benefit from weight reduction though she has lost weight recently. 10. Chronic pain syndrome - continue home medications 12. Hypertension - continue home medications 13. Hyperlipidemia - Continue home medications 14. Recent ankle fracture ?- continue patient's brace when ambulating. No weight bearing restrictions are known at this time. 15. Elevated lactate ?-suspect elevated due to hepatic congestion, do not suspect sepsis given patient's improvement thus far with interventions. Also possible elevation from her albuterol use recently. 16. ALISSA, not present on admission, resolved ?- suspect due to overdiuresis given presentation. Currently holding furosemide. ?- Cr now normal with IVF -cautious 2-3 day use of ibuprofen initiated on 11/12 17. Hyponatremia, not present on admission. Improved. ?- Na dropped to 128 from 138 with diuresis ?- IVF improved Na to 134 ?- monitor 18. Cervicogenic headache and severe neck pain ?- patient had spastic, hypertonic muscles on exam ?-received osteopathic manipulation. ?- muscle relaxers and pain meds PRN ?-no acute injury/infection on CT noncon head/cervical spine -2-3 day ibuprofen trial on 11/12 Code: Full surrogate is patient's daughter and granddaughter. DVT prophylaxis: Apixaban Dispo: Home in 1-2 days.
[2022-11-12] MEDS: INSULIN LISPRO 100 UNIT/ML 3ML VIAL SUBCUT ×4 (08:19→20:34)
[2022-11-12] MEDS: FLUTICASONE 120 SPRAY/16 GM SPRAY.SUSP NASAL ×2 (08:21→20:33)
[2022-11-12] MEDS: INSULIN GLARGINE 100 UNIT/ML 3ML PEN 25 UNIT SUBCUT ×2 (08:21→20:33)
[2022-11-12] MEDS: AMIODARONE 200 MG TABLET 100 MG PO (08:22)
[2022-11-12] MEDS: OXYCODONE IR 5 MG TABLET PO ×3 (08:24→17:02)
[2022-11-12] MEDS: LIDOCAINE PATCH 1 EACH ADH..PATCH TOP (08:24)
[2022-11-12] MEDS: METOPROLOL ER 25 MG TABLET PO (08:26)
[2022-11-12] MEDS: APIXABAN 5 MG TABLET PO ×2 (08:26→20:33)
[2022-11-12] MEDS: CYCLOBENZAPRINE 10 MG TABLET PO ×2 (08:29→17:03)
[2022-11-12] MEDS: SPIRONOLACTONE 25 MG TABLET PO (08:30)
[2022-11-12] MEDS: ACETAMINOPHEN 325 MG TABLET 650 MG PO ×3 (08:30→17:01)
[2022-11-12] MEDS: MULTIVITAMIN 1 TABLET 1 TAB PO (08:30)
[2022-11-12] MEDS: SENNOSIDES 8.6 MG TABLET PO ×2 (08:30→20:33)
[2022-11-12] MEDS: polyethylene glycoL 3350 17 GM POWD.PACK PO (08:32)
[2022-11-12] MEDS: SODIUM CHLORIDE 0.9% FLUSH 10 ML IV ×3 (08:34→20:35)
[2022-11-12] MEDS: cefTRIAXone 1,000 MG in SODIUM CHLORIDE 0.9% 100 ML 200 MG IV (08:35)
[2022-11-12] MEDS: ALBUTEROL/IPRATROPIUM 3 ML AMPUL INH ×3 (09:17→19:10)
[2022-11-12] MEDS: BUDESONIDE 0.5 MG/2 ML NEB INH ×2 (09:17→19:10)
[2022-11-12] MEDS: methocarbamoL 500 MG TABLET PO (10:48)
[2022-11-12] MEDS: IBUPROFEN 400 MG TABLET PO (10:48)
[2022-11-12] MEDS: LORazepam 1 MG TABLET PO ×2 (11:52→17:48)
--- NOTE | 2022-11-12 20:28 | PC.NURSE ---
2024: BP 95/40 and 99/49 HR 60 RR 22 90% 4L oximask. Pt states dizziness. freight caller hospitalist GLADYS Randolph made aware, discontinued dilaudid and hold metoprolol for tonight.
[2022-11-13] VITALS (12 sets, daily range): BP systolic 90–118; BP diastolic 38–56; PULSE 60–68; RESP 16–24; TEMP 35.4–36.8; O2SAT 92–98
[2022-11-13] MEDS: SODIUM CHLORIDE 0.9% 500 ML 1000 ML IV (00:32)
[2022-11-13] MEDS: SODIUM CHLORIDE 0.9% 1,000 ML 60 ML IV (01:55)
[2022-11-13] MEDS: IBUPROFEN 400 MG TABLET PO (06:14)
[2022-11-13] MEDS: ACETAMINOPHEN 325 MG TABLET 650 MG PO (06:15)
[2022-11-13 06:32] LABS: BUN Creatinine Ratio 41.8 (6-22); Blood Urea Nitrogen 38 mg/dL (7-17); Calcium 8.9 mg/dL (8.4-10.2); Carbon Dioxide 35 mmol/L (22-32); Chloride 97 mmol/L (98-107); Estimated Glomerular Filt Rate > 60 mL/min (>60); Glucose 310 mg/dL (70-100); HEMOLYSIS < 15 (0-50); Potassium 5.1 mmol/L (3.4-5.1); Sodium 134 mmol/L (137-145)
[2022-11-13 06:33] LABS: Add Manual Diff / Slide Review NO; Basophils Absolute Auto 0 /uL (0-100); Basophils Percent Auto 0.2 % (0-2); Eosinophils Absolute Auto 0 /uL (0-450); Hematocrit 42.5 % (36-46); Hemoglobin 14.3 g/dL (12.0-16.0); Lymphocytes Absolute Auto 600 /uL (1100-4500); Lymphocytes Percent Auto 4.1 % (25-40); Mean Corpuscular HGB Conc 33.6 % (30-36); Mean Corpuscular Hemoglobin 31.8 PG (26-34); Mean Corpuscular Volume 94.8 fL (80-100); Monocytes Absolute Auto 500 /uL (0-900); Monocytes Percent Auto 3.3 % (3-14); Neutrophils Absolute Auto 13500 /uL (1500-7000); Neutrophils Percent Auto 92.4 % (50-75); Platelet Count 245 X10^3/uL (150-400); Red Blood Cell Count 4.48 X10^6/uL (4.0-5.2); Red Cell Distribution Width 13.7 % (11.6-14.8); White Blood Cell Count 14.6 X10^3/uL (4.5-11.0)
[2022-11-13 06:38] LABS: Erythrocyte Sedimentation Rate 6 MM/HR (0-20)
[2022-11-13] MEDS: ALBUTEROL/IPRATROPIUM 3 ML AMPUL INH ×3 (07:17→19:20)
[2022-11-13] MEDS: BUDESONIDE 0.5 MG/2 ML NEB INH ×2 (07:17→19:20)
[2022-11-13] MEDS: OXYCODONE IR 5 MG TABLET PO ×2 (08:01→12:54)
[2022-11-13] MEDS: cefTRIAXone 1,000 MG in SODIUM CHLORIDE 0.9% 100 ML 200 MG IV (08:02)
[2022-11-13] MEDS: LIDOCAINE PATCH 1 EACH ADH..PATCH TOP (08:08)
[2022-11-13] MEDS: INSULIN GLARGINE 100 UNIT/ML 3ML PEN 25 UNIT SUBCUT ×2 (08:17→22:05)
[2022-11-13] MEDS: INSULIN LISPRO 100 UNIT/ML 3ML VIAL SUBCUT ×4 (08:17→22:06)
[2022-11-13] MEDS: FLUTICASONE 120 SPRAY/16 GM SPRAY.SUSP NASAL ×2 (08:31→22:05)
[2022-11-13] MEDS: SENNOSIDES 8.6 MG TABLET PO ×2 (08:38→22:05)
[2022-11-13] MEDS: APIXABAN 5 MG TABLET PO ×2 (08:38→22:05)
[2022-11-13] MEDS: MULTIVITAMIN 1 TABLET 1 TAB PO (08:38)
[2022-11-13] MEDS: METOPROLOL ER 25 MG TABLET PO (09:49)
[2022-11-13] MEDS: AMIODARONE 200 MG TABLET 100 MG PO (09:50)
[2022-11-13] MEDS: lisinopriL 5 MG TABLET PO (09:51)
[2022-11-13] MEDS: SODIUM CHLORIDE 0.9% FLUSH 10 ML IV ×2 (09:52→22:07)
[2022-11-13] MEDS: SPIRONOLACTONE 25 MG TABLET PO (09:52)
[2022-11-13] MEDS: ONDANSETRON 4 MG/2 ML INJ IV (12:54)
[2022-11-13] MEDS: CYCLOBENZAPRINE 10 MG TABLET PO (14:08)
--- NOTE | 2022-11-13 14:55 | P.PN_ITS ---
Subjective Subjective Date Patient Seen: 11/12/22 Time Patient Seen: 14:55 Interval history: She is seen today to follow-up her COPD, chronic neck pain and hypoxia. Her wheezing is finally starting to improve. She reports no improvement with oxycodone with regards to her neck pain. Neck pain feels like a muscle spasm. Overnight she was a bit hypotensive, IV pain medication was stopped, fluids started which can now be stopped. Exam Vital Signs (past 8 hours): - 11/13/22 07:20 11/13/22 08:09 11/13/22 09:49 Temperature 96.0 F L Pulse Rate 60 60 Respiratory Rate 20 Blood Pressure 118/48 L 117/54 L Pulse Oximetry 96 97 Oxygen Delivery Method Nasal Cannula Oxygen Flow Rate 3 3 Fraction of Inspired Oxygen 11/13/22 08:00 11/13/22 12:00 11/13/22 12:20 Temperature 97.2 F L Pulse Rate 62 65 Respiratory Rate 16 22 Blood Pressure 113/53 L Pulse Oximetry 98 96 Oxygen Delivery Method Simple Mask Nasal Cannula Oxygen Flow Rate 3 Fraction of Inspired Oxygen 32 Fraction of Inspired Oxygen 32 SaO2/FiO2 Ratio 300 Oxygen Delivery Method Nasal Cannula Oxygen Flow Rate 3 Narrative Exam Narrative: GEN: no acute distress, appears uncomfortable HEENT: moist mucous membranes, PERRL NECK: trachea midline, no JVD PULM: improved inspiratory and expiratory wheezing, now predominanttly on the R, with bilateral rhonchi CV: irregular, no murmurs MSK: neck muscles very hypertonic in suboccipital region extending to traps ABD: soft, nontender, nondistended, no organomegaly, normal bowel sounds EXT: warm and well perfused with trace peripheral edema NEURO: awake, alert, oriented, no focal deficits Objective Labs 11/13/22 05:50 11/13/22 05:50 Labs: Laboratory Results - last 24 hr 11/13/22 11/13/22 11/13/22 05:50 05:50 05:50 WBC 14.6 H RBC 4.48 Hgb 14.3 Hct 42.5 MCV 94.8 MCH 31.8 MCHC 33.6 RDW 13.7 Plt Count 245 Neut % (Auto) 92.4 H Lymph % (Auto) 4.1 L Kinney % (Auto) 3.3 Eos % (Auto) 0.0 L Baso % (Auto) 0.2 Neut # (Auto) 74679 H Lymph # (Auto) 600 L Kinney # (Auto) 500 Eos # (Auto) 0 Baso # (Auto) 0 ESR 6 Sodium 134 L Potassium 5.1 Chloride 97 L Carbon Dioxide 35 H BUN 38 H Creatinine 0.91 Estimated GFR > 60 BUN/Creatinine Ratio 41.8 H Glucose 310 H Calcium 8.9 PFSH Medical History CAD (coronary artery disease) Congestive heart failure COPD (chronic obstructive pulmonary disease) Surgical History AICD (automatic cardioverter/defibrillator) present H/O heart artery stent Social History household members: none lives independently: Yes Smoking Status: Current every day smoker alcohol intake: former Assessment & Plan Assessment & Plan narrative: 1. COPD with exacerbation, improving ?- exacerbation probably due to viral pneumonia ?- RT eval and treat, start nebulizer therapies and albuterol as needed ?- continue methylprednisolone IV, increased on 11/12 up to 60 mg q.8 hours. Can discontinue on prednisone once medically ready. 2. Parainfluenza pneumonia with possible superimposed bacterial pneumonia ?- Resp PCR positive for parainflu ?- WBC increased during admission, which may be from IV steroids but cannot definitely rule out pneumonia given CT chest with R lobe tree-in-bud pattern ?-continue on rocephin and azithromycin 3. chronic systolic heart failure, acute likely ruled out or overdiuresed. ?- Last TTE 08/27 with EF 25-30%, new echo will not currently microsoft exchange architect ?- CTA negative for PE ?- patient was presumed volume overloaded based on orthopnea, however developed ALISSA after 3 doses of 40 mg IV lasix. Lasix held for now. ?- continue home lisinopril and metoprolol 4. Acute on chronic hypoxemic respiratory failure, acute now resolved ?- patient desaturates on 3L on the ER, She is typically on 3L at home. Will see with above therapies if there is improvement. Slight increase to 5L but significant waxing and waning over the day with oxygen needs. ?- CTA negative for PE. Did show tree and bud pattern consistent with possible pneumonia. ?- now back to baseline O2 at 3L 5. Coronary artery disease with prior CT - Troponin was negative. 6. History of cardiac arrest, status post pacemaker/AICD placement - Per outside records, she reports receiving a shock a couple of times a year.? It is unclear when she last had her device interrogated. 7. Atrial fibrillation on chronic anticoagulation with Eliquis ?- continue eliquis 8. Diabetes mellitus type 2 - lantus 25 units BID due to hyperglycemia with IV steroids -continue high dose sliding scale. 9. Class 3 obesity with BMI of 40 - Her obesity puts her at significant risk of morbidity and mortality.? Would greatly benefit from weight reduction though she has lost weight recently. 10. Chronic pain syndrome - continue home medications 12. Hypertension - continue home medications 13. Hyperlipidemia - Continue home medications 14. Recent ankle fracture ?- continue patient's brace when ambulating. No weight bearing restrictions are known at this time. 15. Elevated lactate ?-suspect elevated due to hepatic congestion, do not suspect sepsis given patient's improvement thus far with interventions. Also possible elevation from her albuterol use recently. 16. ALISSA, not present on admission, resolved ?- suspect due to overdiuresis given presentation. Currently holding furosemide. ?- Cr now normal with IVF -cautious 2-3 day use of ibuprofen initiated on 11/12 17. Hyponatremia, not present on admission. Improved. ?- Na dropped to 128 from 138 with diuresis ?- IVF improved Na to 134 ?- monitor 18. Cervicogenic headache and severe neck pain ?- patient had spastic, hypertonic muscles on exam ?-received osteopathic manipulation. ?- muscle relaxers and pain meds PRN ?-no acute injury/infection on CT noncon head/cervical spine -2-3 day ibuprofen trial on 11/12 -trial pregabalin on 11/13 and discontinue oxycodone with PO dilaudid trial today to see if improvement. Code: Full surrogate is patient's daughter and granddaughter. DVT prophylaxis: Apixaban Dispo: Home in 1-2 days.
[2022-11-13] MEDS: PREGABALIN 50 MG CAPSULE PO (15:49)
[2022-11-13] MEDS: HYDROMORPHONE 2 MG TABLET PO ×2 (15:49→22:22)
[2022-11-14] VITALS (14 sets, daily range): BP systolic 101–123; BP diastolic 48–58; PULSE 60–66; RESP 16–22; TEMP 35.8–36.2; O2SAT 93–100
[2022-11-14] MEDS: HYDROMORPHONE 2 MG TABLET PO ×4 (04:35→19:25)
--- NOTE | 2022-11-14 05:53 | PC.NURSE ---
Late entry note 11/13 0600: Patient verbalized frustration with this RN, states that her inventory specialist and coach driver wants her on 3L NC 27/11 and you shouldn't have touched my oxygen This RN had previously turned down oxygen as patient was sating 99%. Pt tearful and visibly upset. This RN apologized, and offered for nursing home social worker to come speak with patient. Bertha RN spoke with patient.
[2022-11-14] MEDS: ALBUTEROL/IPRATROPIUM 3 ML AMPUL INH ×3 (06:16→19:45)
[2022-11-14] MEDS: BUDESONIDE 0.5 MG/2 ML NEB INH ×2 (08:37→19:45)
[2022-11-14] MEDS: FLUTICASONE 120 SPRAY/16 GM SPRAY.SUSP NASAL ×2 (08:46→21:33)
[2022-11-14] MEDS: lisinopriL 5 MG TABLET PO (08:46)
[2022-11-14] MEDS: SPIRONOLACTONE 25 MG TABLET PO (08:48)
[2022-11-14] MEDS: PREGABALIN 50 MG CAPSULE PO (08:48)
[2022-11-14] MEDS: SENNOSIDES 8.6 MG TABLET PO ×2 (08:48→21:37)
[2022-11-14] MEDS: APIXABAN 5 MG TABLET PO ×2 (08:48→21:33)
[2022-11-14] MEDS: AMIODARONE 200 MG TABLET 100 MG PO (08:48)
[2022-11-14] MEDS: MULTIVITAMIN 1 TABLET 1 TAB PO (08:48)
[2022-11-14] MEDS: METOPROLOL ER 25 MG TABLET PO ×2 (08:49→21:36)
[2022-11-14] MEDS: INSULIN LISPRO 100 UNIT/ML 3ML VIAL SUBCUT ×4 (08:50→21:36)
[2022-11-14] MEDS: LIDOCAINE PATCH 1 EACH ADH..PATCH TOP (08:50)
[2022-11-14] MEDS: INSULIN GLARGINE 100 UNIT/ML 3ML PEN 25 UNIT SUBCUT ×2 (08:52→21:33)
[2022-11-14] MEDS: SODIUM CHLORIDE 0.9% FLUSH 10 ML IV ×2 (10:08→21:37)
--- NOTE | 2022-11-14 13:24 | P.PN_ITS ---
Subjective Subjective Date Patient Seen: 11/12/22 Interval history: She is seen today to follow-up her COPD, chronic neck pain and hypoxia. Her wheezing is finally starting to improve. She now complains of straining her back in bed reaching. She is willing to work with therapies. Exam Vital Signs (past 8 hours): - 11/14/22 06:16 11/14/22 08:46 11/14/22 08:49 Temperature Pulse Rate 60 63 63 Respiratory Rate 22 Blood Pressure 123/58 L 123/58 L Pulse Oximetry 95 Oxygen Delivery Method Oximask Oxygen Flow Rate 3 11/14/22 08:43 11/14/22 08:00 11/14/22 11:48 Temperature 96.5 F L 96.4 F L Pulse Rate 64 63 64 Respiratory Rate 20 22 20 Blood Pressure 123/58 L 116/54 L Pulse Oximetry 96 94 93 Oxygen Delivery Method Oximask Oxygen Flow Rate 3 3 3 Fraction of Inspired Oxygen 32 SaO2/FiO2 Ratio 300 Oxygen Delivery Method Oximask Oxygen Flow Rate 3 Narrative Exam Narrative: GEN: no acute distress, appears uncomfortable HEENT: moist mucous membranes, PERRL NECK: trachea midline, no JVD PULM: improved inspiratory and expiratory wheezing, now predominanttly on the R, with bilateral rhonchi CV: irregular, no murmurs MSK: neck muscles very hypertonic in suboccipital region extending to traps ABD: soft, nontender, nondistended, no organomegaly, normal bowel sounds EXT: warm and well perfused with trace peripheral edema NEURO: awake, alert, oriented, no focal deficits Objective Labs 11/13/22 05:50 11/13/22 05:50 PFSH Medical History CAD (coronary artery disease) Congestive heart failure COPD (chronic obstructive pulmonary disease) Surgical History AICD (automatic cardioverter/defibrillator) present H/O heart artery stent Social History household members: none lives independently: Yes Smoking Status: Current every day smoker alcohol intake: former Assessment & Plan Assessment & Plan narrative: 1. COPD with exacerbation, improving ?- exacerbation probably due to viral pneumonia ?- RT eval and treat, start nebulizer therapies and albuterol as needed ?- continued methylprednisolone IV, increased on 11/12 up to 60 mg q.8 hours. Decrease to prednisone 60 mg PO tomorrow. 2. Parainfluenza pneumonia with possible superimposed bacterial pneumonia ?- Resp PCR positive for parainflu ?- WBC increased during admission, which may be from IV steroids but cannot definitely rule out pneumonia given CT chest with R lobe tree-in-bud pattern ?-continue on rocephin and azithromycin 3. chronic systolic heart failure, acute likely ruled out or overdiuresed. ?- Last TTE 08/27 with EF 25-30%, new echo will not currently change consultant ?- CTA negative for PE ?- patient was presumed volume overloaded based on orthopnea, however developed ALISSA after 3 doses of 40 mg IV lasix. Lasix held for now. Will resume with 20 mg PO furosemide tomorrow. ?- continue home lisinopril and metoprolol 4. Acute on chronic hypoxemic respiratory failure, acute now resolved ?- patient desaturated on 3L on the ER, She is typically on 3L at home. Now back to baseline. ?- CTA negative for PE. Did show tree and bud pattern consistent with possible pneumonia. 5. Coronary artery disease with prior HI - Troponin was negative. 6. History of cardiac arrest, status post pacemaker/AICD placement - Per outside records, she reports receiving a shock a couple of times a year.? It is unclear when she last had her device interrogated. 7. Atrial fibrillation on chronic anticoagulation with Eliquis ?- continue eliquis 8. Diabetes mellitus type 2 - lantus 25 units BID due to hyperglycemia with IV steroids -continue high dose sliding scale. 9. Class 3 obesity with BMI of 40 - Her obesity puts her at significant risk of morbidity and mortality.? Would greatly benefit from weight reduction though she has lost weight recently. 10. Chronic pain syndrome - continue home medications 12. Hypertension - continue home medications 13. Hyperlipidemia - Continue home medications 14. Recent ankle fracture ?- continue patient's brace when ambulating. No weight bearing restrictions are known at this time. 15. Elevated lactate ?-suspect elevated due to hepatic congestion, do not suspect sepsis given patie nt's improvement thus far with interventions. Also possible elevation from her albuterol use recently. 16. ALISSA, not present on admission, resolved ?- suspect due to overdiuresis given presentation. Currently holding furosemide. ?- Cr now normal with IVF -cautious 2-3 day use of ibuprofen initiated on 11/12 17. Hyponatremia, not present on admission. Improved. ?- Na dropped to 128 from 138 with diuresis ?- IVF improved Na to 134 ?- monitor 18. Cervicogenic headache and severe neck pain ?- patient had spastic, hypertonic muscles on exam ?-received osteopathic manipulation. ?- muscle relaxers and pain meds PRN ?-no acute injury/infection on CT noncon head/cervical spine -2-3 day ibuprofen trial on 11/12 -trial pregabalin on 11/13 and discontinue oxycodone with PO dilaudid trial to see if improvement. Code: Full surrogate is patient's daughter and granddaughter. DVT prophylaxis: Apixaban Dispo: Home in 1-2 days.
[2022-11-14] MEDS: ACETAMINOPHEN 325 MG TABLET 650 MG PO (14:49)
[2022-11-14] MEDS: methocarbamoL 500 MG TABLET PO (14:49)
[2022-11-14] MEDS: ALBUTEROL 2.5 MG/3 ML NEB (ADULT) INH (21:50)
[2022-11-15] VITALS (9 sets, daily range): BP systolic 94–112; BP diastolic 31–51; PULSE 60–66; RESP 16–20; TEMP 35.6–36.5; O2SAT 95–98
[2022-11-15] MEDS: LORazepam 1 MG TABLET PO (01:56)
[2022-11-15] MEDS: HYDROMORPHONE 2 MG TABLET PO ×2 (01:56→10:29)
[2022-11-15] MEDS: ACETAMINOPHEN 325 MG TABLET 650 MG PO ×2 (03:45→11:59)
[2022-11-15] MEDS: CYCLOBENZAPRINE 10 MG TABLET PO (03:45)
--- NOTE | 2022-11-15 03:57 | PC.NURSE ---
Patient is alert and oriented but anxious and crying at time of assessment. Breath sounds coarse on inspiration. Denies SOB at rest but reports SOB with exertion. Has moist sounding cough which she reports is productive of green/yellow sputum but none noted at time of assessment. Is currently on 3L/min of oxygen per oximask as per her home regimen. HRR. Complains of intermittent heartburn so contacted Agustín GRAHAM, and received order for Tums prn. Denies nausea. BT present and is passing flatus. Is voiding but states she has had some dysuria past couple days. Is able to move herself; declines lying in bed so is up in recliner. Gets up to the bathroom with walker and 1 assist. Is suppose to be wearing boot on right foot when up but does not have it with her so will check with PT when they are available in a.m. Complains of chronic head/neck pain and has been medicated with dilaudid, tylenol and flexeril as well as ativan for her anxiety; is alternating ice with heat for additional relief. States any activity, i.e coughing/walking, exacerbates her pain. States her usual level of pain at home is a 7-8/10. Fall risk assessment is high but refuses to use an alarm so has verbalized that she will not get out of chair without staff present with her. Remains on droplet precautions as was positive for parainfluenzae on admission.
[2022-11-15] MEDS: ALBUTEROL/IPRATROPIUM 3 ML AMPUL INH (07:41)
[2022-11-15] MEDS: BUDESONIDE 0.5 MG/2 ML NEB INH (07:41)
[2022-11-15] MEDS: predniSONE 20 MG TABLET 60 MG PO (09:07)
[2022-11-15] MEDS: MULTIVITAMIN 1 TABLET 1 TAB PO (09:07)
[2022-11-15] MEDS: lisinopriL 5 MG TABLET PO (09:07)
[2022-11-15] MEDS: SENNOSIDES 8.6 MG TABLET PO (09:07)
[2022-11-15] MEDS: PREGABALIN 50 MG CAPSULE PO (09:08)
[2022-11-15] MEDS: METOPROLOL ER 25 MG TABLET PO (09:08)
[2022-11-15] MEDS: AMIODARONE 200 MG TABLET 100 MG PO (09:08)
[2022-11-15] MEDS: APIXABAN 5 MG TABLET PO (09:08)
[2022-11-15] MEDS: FUROSEMIDE 20 MG TABLET PO (09:08)
[2022-11-15] MEDS: SPIRONOLACTONE 25 MG TABLET PO (09:08)
[2022-11-15] MEDS: SODIUM CHLORIDE 0.9% FLUSH 10 ML IV (09:09)
[2022-11-15] MEDS: LIDOCAINE PATCH 1 EACH ADH..PATCH TOP (09:09)
[2022-11-15] MEDS: INSULIN GLARGINE 100 UNIT/ML 3ML PEN 25 UNIT SUBCUT (09:14)
[2022-11-15] MEDS: FLUTICASONE 120 SPRAY/16 GM SPRAY.SUSP NASAL (09:15)
--- NOTE | 2022-11-15 11:24 | P.DS_ITS ---
History of Present Illness History of Present Illness Date Patient Seen: 11/15/22 Time Patient Seen: 11:24 Chief complaint: hard time breathing Narrative: 57-year-old female with COPD, chronic hypoxic respiratory failure (prescribed 2- 3 L of oxygen continuously), chronic systolic congestive heart failure (EF 25%), coronary artery disease with her 1st AK at age 29 previous cardiac arrest status post pacemaker/AICD placement, diabetes mellitus type 2 on oral antidiabetic agents, class 3 obesity who left [facility] about 10 days ago after becoming frustrated with her care there (admitted for possible pneumonia but no further details known) who presents with worsening shortness of breath over the past few days. Patients states for the past few weeks she has been having increasing difficulties with orthopnea and at night has been gasping for air (PND). About three weeks ago she reportedly had a fracture in her R ankle as well that is being managed conservatively and she does take opiates at home for pain control, also for chronic neck pain. She reports inability to follow cardiac diet due to reported tony's ? disease though she is not on chronic steroid therapy and when the provider would not allow her to eat her usual diet in the hospital this is when she left [facility] most recently. She has no known sick contacts, and reports feeling chills but has no reported fever. Her cough has been productive of light green sputum, while normally she has none. She has had rhinorrhea the past couple of days as well. She has been wheezy and has increased inhaler and nebulizer use at home without success in control of her symptoms. She denies recent weight gain, but admits to LE edema, her appetite has been poor. In the emergency room, patient reportedly desaturated per the ER provider with minimal movement on her typical 3L of home O2, and she was tachypnic. She was given antibiotics, steroids, furosemide with improvement. By my evaluation she was saturating in the low 90s on 2L O2. She still complained of dyspnea with mi nimal movement. Respiratory panel was positive for parainfluenza 4. Procalcitonin was <0.25, probnp was 1420, troponin 0.017. WBC and remainder of CMP was unremarkable. She was admitted for further management of shortness of breath secondary to COPD exacerbation. Discharge Providers Provider Date of admission: 11/07/22 15:25 Discharge Date: 11/15/22 Primary care physician: Jolene Steen PA-C Consults: 11/07/22 16:35 Consult to Dietitian, Adult Routine Comment: Reason For Exam: weight loss 11/14/22 13:25 Consult to Physical Therapy Evaluate & Treat Comment: Physician Instructions: Evaluate and Treat Discharge provider: Armin Echols DO Summary Hospital Course Discharge Diagnosis: 1. COPD with exacerbation, improving 2. Parainfluenza pneumonia with possible superimposed bacterial pneumonia 3. chronic systolic heart failure, acute likely ruled out or overdiuresed. 4. Acute on chronic hypoxemic respiratory failure, acute now resolved 5. Coronary artery disease with prior AK 6. History of cardiac arrest, status post pacemaker/AICD placement 7. Atrial fibrillation on chronic anticoagulation with Eliquis 8. Diabetes mellitus type 2 9. Class 3 obesity with BMI of 40 10. Chronic pain syndrome 12. Hypertension 13. Hyperlipidemia 14. Recent ankle fracture 15. Elevated lactate, resolved 16. ALISSA, not present on admission, resolved 17. Hyponatremia, not present on admission. Improved. 18. Cervicogenic headache and severe neck pain 19. Recent R ankle fracture. present prior to admission Hospital Course: This is a 57 year old female with PMH of COPD with chronic hypoxic respiratory failure who presented with shortness of breath and possible increased oxygen requirements that had improved by time she was admitted to the floor. She was initially admitted with concern for CHF exacerbation, COPD exacerbation in the setting of parainfluenza virus. She was started on steroids and diuresis. She developed an ALISSA with diuresis, so acute CHF was likely ruled out. She was already on beta majo and jade inhibition prior to admission which were continued. She was slow to improve. Steroids were increased to IV BID then TID, and she was started on antibiotics for possible superimposed bacterial component. A few days after those changes were made her wheezing started to improve and her breathing felt improved. Her stay was complicated by difficult to control musculoskeletal neck pain requiring multidisciplinary pain management. I do recommend outpatient consultation with pain management if no improvement with outpatient physical therapy. She was discharged with pain medications for her neck pain, steroids for COPD exacerbation, a decrease in her furosemide dosing based on dosing here at home, and oral antibiotics to complete treatment for her bacterial pneumonia. Time Spent with Patient Time spent: Greater than 30 minutes Exam Vital Signs (past 8 hours): - 11/15/22 04:44 11/15/22 04:44 11/15/22 07:43 Temperature 96.3 F L Pulse Rate 60 Respiratory Rate 20 Blood Pressure 112/51 L Pulse Oximetry 97 97 95 Oxygen Delivery Method Oximask Nasal Cannula Oxygen Flow Rate 3 3 3 11/15/22 08:17 11/15/22 08:00 11/15/22 09:07 Temperature 96.1 F L Pulse Rate 64 Respiratory Rate 16 Blood Pressure 94/36 L 100/31 L Pulse Oximetry 98 98 Oxygen Delivery Method Nasal Cannula Simple Mask Oxygen Flow Rate 3 3 11/15/22 09:08 Temperature Pulse Rate Respiratory Rate Blood Pressure 100/39 L Pulse Oximetry Oxygen Delivery Method Oxygen Flow Rate Fraction of Inspired Oxygen 32 SaO2/FiO2 Ratio 300 Oxygen Delivery Method Nasal Cannula,Simple Mask Oxygen Flow Rate 3 Narrative Exam Narrative: GEN: no acute distress, appears uncomfortable HEENT: moist mucous membranes, PERRL NECK: trachea midline, no JVD PULM: improved inspiratory and expiratory wheezing, now predominanttly on the R, with bilateral rhonchi CV: irregular, no murmurs MSK: neck muscles very hypertonic in suboccipital region extending to traps ABD: soft, nontender, nondistended, no organomegaly, normal bowel sounds EXT: warm and well perfused with trace peripheral edema NEURO: awake, alert, oriented, no focal deficits Objective Labs 11/13/22 05:50 11/13/22 05:50 PFSH Medical History CAD (coronary artery disease) Congestive heart failure COPD (chronic obstructive pulmonary disease) Surgical History AICD (automatic cardioverter/defibrillator) present H/O heart artery stent Social History household members: none lives independently: Yes Smoking Status: Current every day smoker alcohol intake: former Discharge Plan Discharge Plan Patient Disposition: Home Health Service Transfer to: [facility] Discharge orders & Medications Prescriptions: New prednisone 20 mg tablet See Rx Instructions .ROUTE .COMPLEX Qty: 18 0RF Rx Instructions: Take 60 mg for 3 days, 40 mg for 3 days, then 20 mg for 3 days then stop hydromorphone 2 mg Tablet 2 mg PO Q4HR PRN (Reason: Pain, Severe (7-10)) 7 Days Qty: 40 0RF amoxicillin-pot clavulanate 875-125 mg tablet 1 tab PO BID 4 Days Qty: 8 0RF Continued amiodarone 200 mg tablet 100 mg PO DAILY Patient Comments: TAKE 1/2 (ONE-HALF) TABLET BY MOUTH ONCE DAILY spironolactone 25 mg tablet 25 mg PO DAILY Patient Comments: TAKE 1 TABLET BY MOUTH ONCE DAILY lisinopril 5 mg tablet 5 mg PO DAILY Patient Comments: TAKE 1 TABLET BY MOUTH ONCE DAILY albuterol sulfate [Ventolin HFA] 90 mcg/actuation HFA aerosol inhaler 2 puff INHALATION QID PRN (Reason: Shortness Of Breath) Patient Comments: INHALE 2 PUFFS BY MOUTH 4 TIMES DAILY NEEDED Eliquis 5 mg tablet 5 mg PO BID Patient Comments: TAKE 1 TABLET BY MOUTH TWICE DAILY glipizide [Glucotrol XL] 5 mg tablet extended release 24hr 5 mg PO DAILY Qty: 30 3RF metoprolol succinate 25 mg tablet extended release 24 hr 25 mg PO BID Patient Comments: TAKE 1 TABLET BY MOUTH TWICE DAILY FOR BLOOD PRESSURE ProAir RespiClick 90 mcg/actuation aerosol powdr breath activated 2 inh INHALATION Q4H PRN (Reason: Shortness Of Breath) Patient Comments: INHALE 2 PUFFS BY MOUTH EVERY 4 TO 6 HOURS NEEDED promethazine 25 mg tablet 25 mg PO Q6H PRN (Reason: Nausea) Patient Comments: TAKE 1 TABLET BY MOUTH EVERY 6 HOURS multivitamin Tablet 1 tab PO DAILY Mucinex DM 30-600 mg Tablet Extended Release 12 Hr 1 tab PO BEDTIME methocarbamol 500 mg tablet 500 mg PO TID PRN (Reason: Muscle Spasm) Patient Comments: TAKE 1 TABLET BY MOUTH THREE TIMES DAILY NEEDED FOR MUSCLE SPASM hydrocodone-acetaminophen 5-325 mg tablet 1 tab PO Q6H PRN (Reason: Pain (Scale Score 1-3)) Patient Comments: TAKE 1 TABLET BY MOUTH EVERY 6 HOURS NEEDED FOR PAIN fluticasone propionate 50 mcg/actuation spray,suspension 2 spray INTRANASAL BID Combivent Respimat 20-100 mcg/actuation mist 2 puff INHALATION PRN PRN (Reason: Shortness Of Breath) Changed furosemide 40 mg tablet 40 mg PO DAILY Qty: 20 0RF Patient Comments: TAKE 1 TABLET BY MOUTH TWICE DAILY Discontinued oxycodone 5 mg Tablet 5 mg PO Q4HR PRN (Reason: pain) Qty: 20 0RF Follow up/Referrals: Jolene Steen PA-C [Primary Care Provider] - Visit Report/Discharge Packet Stand Alone Forms: Patient Portal/API, Stroke Signs & Symptoms Discharge Data Primary Care Provider: Jolene Steen Discharges patient from system. Discharge Date/Time: 11/15/22 13:55
--- NOTE | 2022-11-15 11:34 | CM.DPC ---
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 [facility] confirms they can transport pt home at 1400 outside ED entrance and RN and review scheduling coordinator aware. YESSI faxed d/c summary (still draft) and [facility] orders to [facility] to review. BF Original Note: DCP Home Planning: Per MD, pt likely medically stable to discharge home today. SW met bedside with pt who continues to have pain management issues from chronic pain and confirms that she is still waiting for referrals/scheduling to see the Pain Clinic and also Ortho as she has been dx with nerve pain. Pt remains fairly tearful and painful in her neck, shoulders, head. SW inquired if pt feels she can safely d/c back to her RV with [facility] and some granddtr assist or if she feels she needs SNF before discharge home. Pt confirms that she declines SNF at this time and really feels ready to just discharge home today. Pt is hopeful that her Medicaid LTC/Miguel A application is processed soon for additional support at home. Pt states her granddtr visited her bedside yesterday but used all her money on gas and pt provided granddtr with her last beatty to get gas money to get home and therefore pt has no money to pay for taxi and no family to provide transport. Pt's ex- does not have a vehicle and only uses a bicycle. Pt thinks she might have Medicaid transportation benefits. YESSI called Medicaid transportation and pt used to have transportation benefits but then switched from Medicaid to the dual Medicaid/Medicare plan and is QMB plan without transportation benefits. Pt is not safe for transport via bus due to her SOB with exertion and home oxygen and pain. YESSI confirmed with CM Director that pt would qualify for a taxi voucher with [employer] and signed the Taxi Voucher form and NELLY Wilson kindly getting a quote from [employer] for the cost and helping to coordinate a time with the RN. YESSI called [facility] and alerted them to the discharge home today and will fax the d/c summary along with orders. Plan: Patient to d/c home via Taxi Voucher with [employer] and [facility] and MIGUEL A application completed and faxed a few days ago for additional support at discharge. GEORGE Mcclain
--- NOTE | 2022-11-15 12:58 | PT-IP ANOTE ---
Per Dr. Echols, patient will d/c home today, no acute PT needed at this time.
[2022-11-15] MEDS: CALCIUM CARBONATE 500 MG TAB PO (13:31)
== END 2022-11-15 13:55 | disposition home health service (06) | DRG 193 ==
LOC: ED 10:50 → AC 15:45
PROVIDERS: Family Medicine; Admitting Provider Internal Medicine; Emergency Provider Emergency Medicine; Family Provider Internal Medicine; PCP Physician Assistant Medical; Visit Provider Internal Medicine
DX: J11.08 Influenza due to unidentified influenza virus with specified pneumonia (principal); J96.21 Acute and chronic respiratory failure with hypoxia; J44.1 Chronic obstructive pulmonary disease with (acute) exacerbation; Z68.41 Body mass index [BMI] 40.0-44.9, adult; E87.1 Hypo-osmolality and hyponatremia; N17.9 Acute kidney failure, unspecified; I50.22 Chronic systolic (congestive) heart failure; J16.8 Pneumonia due to other specified infectious organisms; F17.200 Nicotine dependence, unspecified, uncomplicated; I25.10 Atherosclerotic heart disease of native coronary artery without angina pectoris; I48.91 Unspecified atrial fibrillation; E11.9 Type 2 diabetes mellitus without complications; E66.01 Morbid (severe) obesity due to excess calories; G89.4 Chronic pain syndrome; E78.5 Hyperlipidemia, unspecified; I25.2 Old myocardial infarction; G44.86 Cervicogenic headache; M54.2 Cervicalgia; I11.0 Hypertensive heart disease with heart failure; Z79.84 Long term (current) use of oral hypoglycemic drugs; Z95.0 Presence of cardiac pacemaker; Z87.81 Personal history of (healed) traumatic fracture; Z86.74 Personal history of sudden cardiac arrest; Z79.01 Long term (current) use of anticoagulants; Z99.81 Dependence on supplemental oxygen
CPT/HCPCS: 36415; 70450; 71045; 71250; 72125; 80048; 80053; 82550; 82962; 83605; 83735; 83880; 84145; 84484; 85025; 85610; 85651; 87040; 87633; 93010; 94640; 94760; 94762; 96365; 96366; 96375; 99284; 99285; J0696; J1170; J1815; J1940; J2060; J2405; J2920; J2930; J7613

== ENCOUNTER 2023-08-01 11:09 | Inpatient (IN) | payer MEDICARE, MEDICAID, SELFPAY ==
[2022-07-17 10:41] VITALS: PULSE 61; RESP 24; O2SAT 94
[2022-11-07 16:25] VITALS: BMI 40.0
[2023-08-01] VITALS (69 sets, daily range): BP systolic 82–116; BP diastolic 40–72; PULSE 64–117; RESP 22–55; TEMP 36.4; O2SAT 88–98; BMI 42.5
--- NOTE | 2023-08-01 11:20 | DI.RAD.S_ITS ---
PROCEDURE: XR CHEST 1V INDICATIONS: Shortness of breath TECHNIQUE: One view of the chest was acquired. COMPARISON: [facility], CR, XR CHEST 1V, 11/07/2022, 9:54. FINDINGS: Surgical changes and devices: Left-sided pacer. Lungs and pleura: Mild patchy right perihilar and right basilar opacity. No pleural effusions or pneumothorax. Mediastinum: Mediastinal contours appear normal. Heart size is enlarged.. Bones and chest wall: No suspicious bony lesions. Overlying soft tissues appear unremarkable. IMPRESSION: 1. Cardiomegaly. 2. Right pneumonia. Continued plain film surveillance is recommended to ensure resolution, and to exclude underlying or central malignancy. Dictated by: Ralph Guzman M.D. on 08/01/2023 at 11:46 Approved by: Ralph Guzman M.D. on 08/01/2023 at 11:47
--- NOTE | 2023-08-01 11:23 | ED_ITS ---
HPI - SOB/Dyspnea General Chief Complaint: Shortness of Breath/Dyspnea Stated Complaint: coughing, green spetum, low O2 Time Seen by Provider: 08/01/23 11:17 History of Present Illness HPI Narrative: 58yoF with PMH COPD on 3L chronic O2, congestive heart failure presents by private vehicle for cough productive of green sputum and shortness of breath. Patient arrived tachypneic with obvious increased work of breathing in respiratory distress. Coarse breath sounds bilaterally. Related Data Home Medications Medication Instructions Recorded Confirmed albuterol sulfate 90 mcg/actuation 2 puff inhalation QID PRN 07/17/22 08/01/23 aerosol inhaler (Ventolin HFA) Shortness Of Breath amiodarone 200 mg tablet 100 mg PO DAILY 07/17/22 08/01/23 apixaban 5 mg tablet (Eliquis) 5 mg PO BID 07/17/22 08/01/23 albuterol sulfate 90 mcg/actuation 2 inh inhalation Q4H PRN Shortness 08/29/22 08/01/23 breath activated powder inhaler Of Breath (ProAir RespiClick) dextromethorphan-guaifenesin 30 1 tab PO BEDTIME 08/29/22 08/01/23 mg-600 mg tablet extended hr (Mucinex DM) methocarbamol 500 mg tablet 500 mg PO TID PRN Muscle Spasm 08/29/22 08/01/23 metoprolol succinate 25 mg 25 mg PO DAILY 08/29/22 08/01/23 tablet,extended release 24 hr multivitamin 1 tab PO DAILY 08/29/22 08/01/23 promethazine 25 mg tablet 25 mg PO Q6H PRN Nausea 08/29/22 08/01/23 fluticasone propionate 50 2 spray intranasal BID 11/07/22 08/01/23 mcg/actuation nasal spray,suspension hydrocodone 5 mg-acetaminophen 325 1 tab PO Q6H PRN Pain (Scale Score 11/07/22 08/01/23 mg tablet 1-3) albuterol sulfate 2.5 mg/3 mL 2.5 mg inhalation 4XD PRN wheezing 08/01/23 08/01/23 (0.083 %) solution for nebulization budesonide 0.5 mg/2 mL suspension 0.5 mg inhalation BID 08/01/23 08/01/23 for nebulization empagliflozin 10 mg tablet 10 mg PO DAILY 08/01/23 08/01/23 (Jardiance) furosemide 40 mg tablet 80 mg PO DAILY 08/01/23 08/01/23 mexiletine 150 mg capsule 150 mg PO BID 08/01/23 08/01/23 montelukast 10 mg tablet 10 mg PO BEDTIME 08/01/23 08/01/23 sacubitril 24 mg-valsartan 26 mg 1 tab PO BID 08/01/23 08/01/23 tablet (Entresto) Allergies Allergy/AdvReac Type Severity Reaction Status Date / Time bee pollen Allergy Severe Anaphylaxis Verified 08/01/23 11:23 Fish Containing Products Allergy Severe Anaphylaxis Verified 08/01/23 11:23 shellfish derived Allergy Severe Anaphylaxis Verified 08/01/23 11:23 codeine Allergy Verified 08/01/23 11:23 erythromycin base Allergy Verified 08/01/23 11:23 iodine Allergy Rash Verified 08/01/23 11:23 latex Allergy Rash Verified 08/01/23 11:23 pamabrom [From Midol] Allergy Verified 08/01/23 11:23 doxycycline AdvReac Vomiting Verified 08/01/23 11:23 Review of Systems Review of Systems Narrative: Negative except as noted above Patient History Medical History CAD (coronary artery disease) Congestive heart failure COPD (chronic obstructive pulmonary disease) Surgical History AICD (automatic cardioverter/defibrillator) present H/O heart artery stent Social History household members: none lives independently: Yes Smoking Status: Current every day smoker alcohol intake: never Smoking Status: Current every day smoker tobacco type: cigarettes alcohol intake frequency: holidays/special occasions only Substance Use Type: marijuana Exam Initial Vital Signs Initial Vital Signs: Vital Signs Temperature 97.5 F L 08/01/23 11:10 Pulse Rate 64 08/01/23 11:10 Respiratory Rate 54 H 08/01/23 11:10 Blood Pressure 104/72 08/01/23 11:10 Pulse Oximetry 93 08/01/23 11:10 Oxygen Delivery Method Room Air 08/01/23 11:10 Const: Awake, alert, ill-appearing, in moderate distress Cardiac: regular rate, regular rhythm RESP: Tachypnea, pursed lipped breathing, coarse breath sound bilaterally GI: Soft, nontender, nondistended, no rebound, no guarding MSK: Atraumatic, full range of motion, pulses equal Skin: Warm, Dry, intact, no rashes Neuro: AO x3, CN II-XII grossly intact, moves all extremities Course Orders Ordered: Acetaminophen (Acetaminophen 325 Mg Tablet) 650 mg PO Q6H PRN PRN Reason: Fever/Mild Pain (1-3) Hydrocodone Bitart/Acetaminophen (Hydrocodone/Acet 5/325 Tablet) 1 tab PO Q6H PRN PRN Reason: Pain (Scale Score 1-3) Last Admin: 08/02/23 09:41 Dose: 1 tab Documented By: Admin: 08/01/23 20:50 Dose: 1 tab Documented By: SINDY Albuterol (Albuterol 2.5 Mg/3 Ml Neb (Adult)) 2.5 mg INH [id number] PRN PRN Reason: Shortness Of Breath Last Admin: 08/01/23 19:31 Dose: 2.5 mg Documented By: RICHARD Albuterol/Ipratropium (Albuterol/Ipratropium 3 Ml Ampul) 3 ml INH [id number] [facility] Last Admin: 08/02/23 11:11 Dose: 3 ml Documented By: Admin: 08/02/23 06:24 Dose: 3 ml Documented By: Admin: 08/02/23 04:01 Dose: 3 ml Documented By: Admin: 08/01/23 23:40 Dose: 3 ml Documented By: Admin: 08/01/23 17:28 Dose: 3 ml Documented By: Admin: 08/01/23 13:42 Dose: 3 ml Documented By: TEA Amiodarone HCl (Amiodarone 200 Mg Tablet) 100 mg PO DAILY [facility] Last Admin: 08/02/23 08:07 Dose: 100 mg Documented By: DAX Apixaban (Apixaban 5 Mg Tablet) 5 mg PO BID [facility] Last Admin: 08/02/23 08:07 Dose: 5 mg Documented By: Admin: 08/01/23 20:47 Dose: 5 mg Documented By: SINDY Benzonatate (Benzonatate 100 Mg Capsule) 200 mg PO TID PRN PRN Reason: Cough Last Admin: 08/02/23 13:56 Dose: 200 mg Documented By: Admin: 08/02/23 07:51 Dose: 200 mg Documented By: DAX Budesonide (Budesonide 0.5 Mg/2 Ml Neb) 0.5 mg INH RTBID [facility] Last Admin: 08/02/23 06:24 Dose: 0.5 mg Documented By: Admin: 08/01/23 19:31 Dose: 0.5 mg Documented By: RICHARD Furosemide (Furosemide 40 Mg Tablet) 40 mg PO 0800,1700 [facility] Last Admin: 08/02/23 08:07 Dose: 40 mg Documented By: Admin: 08/01/23 17:14 Dose: 40 mg Documented By: COLT Guaifenesin (Guaifenesin Er 600 Mg Tab) 600 mg PO BID [facility] Guaifenesin/Codeine Phosphate (Codeine/Guaifenesin Liquid 5ml Udc) 10 ml PO Q6H PRN PRN Reason: Cough Last Admin: 08/02/23 10:45 Dose: 10 ml Documented By: DAX Ceftriaxone Sodium 1,000 mg/ (Sodium Chloride) 100 mls @ 200 mls/hr IV Q24H [facility] Last Infusion: 08/02/23 12:22 Dose: Infused Documented By: Admin: 08/02/23 11:50 Dose: 200 mls/hr Documented By: DAX Azithromycin 500 mg/ Dextrose 250 mls @ 250 mls/hr IV Q24H [facility] Last Infusion: 08/02/23 13:22 Dose: Infused Documented By: Admin: 08/02/23 12:21 Dose: 250 mls/hr Documented By: DAX Dextrose (D10w) 100 mls @ 1,200 mls/hr IV PRN PRN PRN Reason: Hypoglycemia Influenza Virus Vaccine (Influenza Vaccine Qiv 0.5 Ml Syringe) 0.5 ml IM .ONCE ONE Stop: 08/04/23 09:16 Insulin Human Lispro (Insulin Lispro 100 Unit/Ml 3ml Vial) 0 unit SUBCUT ACHS [facility]; Protocol Last Admin: 08/02/23 12:21 Dose: 1 unit Documented By: DAX Co-signed By: LAURIE Admin: 08/02/23 08:09 Dose: 1 unit Documented By: DAX Co-signed By: LAURIE Admin: 08/01/23 20:47 Dose: 2 unit Documented By: SINDY Co-signed By: Admin: 08/01/23 17:13 Dose: 5 unit Documented By: COLT Co-signed By: LAURIE Methocarbamol (Methocarbamol 500 Mg Tablet) 500 mg PO TID PRN PRN Reason: Muscle Spasm Metoprolol Succinate (Metoprolol Er 25 Mg Tablet) 25 mg PO DAILY [facility] Last Admin: 08/02/23 08:07 Dose: 25 mg Documented By: DAX Montelukast Sodium (Montelukast 10 Mg Tablet) 10 mg PO BEDTIME [facility] Last Admin: 08/01/23 20:47 Dose: 10 mg Documented By: SINDY Multivitamins (Multivitamin 1 Tablet) 1 tab PO DAILY [facility] Last Admin: 08/02/23 08:07 Dose: 1 tab Documented By: DAX Naloxone HCl (Naloxone 0.4 Mg/Ml Vial) 0.2 mg IV Q2MIN PRN PRN Reason: Opiate Reversal Nf - Mexiletine 150 (Mg Capsule) 150 mg PO BID [facility] Last Admin: 08/02/23 08:28 Dose: Not Given Documented By: Admin: 08/01/23 20:54 Dose: Not Given Documented By: SINDY Nf (Sacubitril- Valsartan [Entresto] 24-26 Mg Tablet) 1 tab PO BID [facility] Prednisone (Prednisone 20 Mg Tablet) 40 mg PO DAILY [facility] Last Admin: 08/02/23 08:08 Dose: 40 mg Documented By: DAX Discontinued Medications Hydrocodone Bitart/Acetaminophen (Hydrocodone/Acet 10/325 Tablet) 1 tab PO NOW ONE Stop: 08/02/23 01:06 Last Admin: 08/02/23 01:28 Dose: 1 tab Documented By: SINDY Albuterol/Ipratropium (Albuterol/Ipratropium 3 Ml Ampul) 3 ml INH NOW ONE Stop: 08/01/23 11:21 Last Admin: 08/01/23 13:22 Dose: Not Given Documented By: BERNICE Albuterol/Ipratropium (Albuterol/Ipratropium 3 Ml Ampul) 9 ml INH NOW ONE Stop: 08/01/23 11:24 Last Admin: 08/01/23 11:25 Dose: 9 ml Documented By: BARBARA Enoxaparin Sodium (Enoxaparin 40 Mg/0.4 Ml Syringe) 40 mg SUBCUT DAILY [facility] Last Admin: 08/02/23 08:07 Dose: 40 mg Documented By: DAX Ceftriaxone Sodium 2,000 mg/ (Sodium Chloride) 100 mls @ 200 mls/hr IV NOW ONE Stop: 08/01/23 11:23 Last Infusion: 08/01/23 13:05 Dose: Infused Documented By: Admin: 08/01/23 12:07 Dose: 200 mls/hr Documented By: BERNICE Azithromycin 500 mg/ Dextrose 250 mls @ 250 mls/hr IV NOW ONE Stop: 08/01/23 11:24 Last Admin: 08/01/23 13:05 Dose: 250 mls/hr Documented By: BERNICE Sodium Chloride (Normal Saline 0.9%) 1,000 mls @ 1,000 mls/hr IV BOLUS ONE Stop: 08/01/23 12:31 Last Infusion: 08/01/23 13:05 Dose: Infused Documented By: Admin: 08/01/23 12:08 Dose: 1,000 mls/hr Documented By: BERNICE Methylprednisolone (Methylprednisolone 125 Mg/2 Ml Vial) 125 mg IV NOW ONE Stop: 08/01/23 11:23 Last Admin: 08/01/23 12:07 Dose: 125 mg Documented By: BERNICE Potassium Chloride (Potassium Chloride 20 Meq Tab) 20 meq PO NOW ONE Stop: 08/02/23 12:31 Last Admin: 08/02/23 12:21 Dose: 20 meq Documented By: DAX Vital Signs Vital signs: Vital Signs - 8 hr 08/01/23 11:10 08/01/23 11:19 08/01/23 11:19 Temperature 97.5 F L Pulse Rate 64 84 Respiratory Rate 54 H 54 H Blood Pressure 104/72 102/59 L Pulse Oximetry 93 91 Oxygen Delivery Method Room Air Oxygen Flow Rate 08/01/23 11:20 08/01/23 11:22 08/01/23 11:22 Temperature Pulse Rate 83 80 Respiratory Rate Blood Pressure 101/47 L Pulse Oximetry 90 L 95 Oxygen Delivery Method Oxygen Flow Rate 08/01/23 11:25 08/01/23 11:25 08/01/23 11:30 Temperature Pulse Rate 79 82 80 Respiratory Rate 24 27 H 32 H Blood Pressure Pulse Oximetry 95 94 97 Oxygen Delivery Method Oximask Oxygen Flow Rate 3 08/01/23 11:32 08/01/23 11:32 08/01/23 11:35 Temperature Pulse Rate 80 83 Respiratory Rate 34 H 29 H Blood Pressure 101/53 L Pulse Oximetry 97 97 Oxygen Delivery Method Oxygen Flow Rate 08/01/23 11:39 08/01/23 11:39 08/01/23 11:40 Temperature Pulse Rate 81 80 Respiratory Rate 39 H 32 H Blood Pressure 99/49 L Pulse Oximetry 97 97 Oxygen Delivery Method Oxygen Flow Rate 08/01/23 11:45 08/01/23 11:45 08/01/23 11:50 Temperature Pulse Rate 82 80 Respiratory Rate 38 H 33 H Blood Pressure 86/47 L Pulse Oximetry 97 95 Oxygen Delivery Method Oxygen Flow Rate 08/01/23 11:50 08/01/23 11:55 08/01/23 11:55 Temperature Pulse Rate 80 Respiratory Rate 32 H Blood Pressure 98/54 L 99/48 L Pulse Oximetry 94 Oxygen Delivery Method Oxygen Flow Rate 08/01/23 12:00 08/01/23 12:00 08/01/23 12:05 Temperature Pulse Rate 82 79 Respiratory Rate 35 H 30 H Blood Pressure 96/50 L Pulse Oximetry 94 96 Oxygen Delivery Method Oxygen Flow Rate 08/01/23 12:05 08/01/23 12:10 08/01/23 12:11 Temperature Pulse Rate 82 Respiratory Rate 45 H Blood Pressure 94/48 L 97/44 L Pulse Oximetry 94 Oxygen Delivery Method Oxygen Flow Rate 08/01/23 12:11 08/01/23 12:15 08/01/23 12:16 Temperature Pulse Rate 82 69 Respiratory Rate 27 H 34 H Blood Pressure 95/51 L Pulse Oximetry 94 96 Oxygen Delivery Method Oxygen Flow Rate 08/01/23 12:16 08/01/23 12:20 08/01/23 12:21 Temperature Pulse Rate 76 79 Respiratory Rate 44 H 26 H Blood Pressure 100/49 L Pulse Oximetry 94 94 Oxygen Delivery Method Oxygen Flow Rate 08/01/23 12:21 08/01/23 12:25 08/01/23 12:25 Temperature Pulse Rate 80 82 Respiratory Rate 38 H 38 H Blood Pressure 103/46 L Pulse Oximetry 94 95 Oxygen Delivery Method Oxygen Flow Rate 08/01/23 12:30 08/01/23 12:30 08/01/23 12:35 Temperature Pulse Rate 82 Respiratory Rate 31 H Blood Pressure 95/50 L 97/41 L Pulse Oximetry 96 Oxygen Delivery Method Oxygen Flow Rate 08/01/23 12:35 08/01/23 12:40 08/01/23 12:44 Temperature Pulse Rate 79 77 76 Respiratory Rate 29 H 24 29 H Blood Pressure Pulse Oximetry 96 97 97 Oxygen Delivery Method Oxygen Flow Rate 08/01/23 12:44 08/01/23 12:45 08/01/23 12:45 Temperature Pulse Rate 77 Respiratory Rate 28 H Blood Pressure 87/48 L 100/50 L Pulse Oximetry 97 Oxygen Delivery Method Oxygen Flow Rate 08/01/23 12:50 08/01/23 12:51 08/01/23 12:51 Temperature Pulse Rate 77 78 Respiratory Rate 32 H 30 H Blood Pressure 112/48 L Pulse Oximetry 96 97 Oxygen Delivery Method Oxygen Flow Rate 08/01/23 12:55 08/01/23 13:00 08/01/23 13:05 Temperature Pulse Rate 76 80 76 Respiratory Rate 28 H 46 H 29 H Blood Pressure Pulse Oximetry 94 91 91 Oxygen Delivery Method Oxygen Flow Rate 08/01/23 13:05 08/01/23 13:10 08/01/23 13:10 Temperature Pulse Rate 75 Respiratory Rate 25 H Blood Pressure 92/44 L 96/46 L Pulse Oximetry 93 Oxygen Delivery Method Oxygen Flow Rate 08/01/23 13:15 08/01/23 13:20 08/01/23 13:21 Temperature Pulse Rate 68 84 Respiratory Rate 32 H 32 H Blood Pressure 82/41 L Pulse Oximetry 94 94 Oxygen Delivery Method Oxygen Flow Rate 08/01/23 13:21 08/01/23 13:25 08/01/23 13:30 Temperature Pulse Rate 85 78 85 Respiratory Rate 34 H 34 H 37 H Blood Pressure Pulse Oximetry 92 92 95 Oxygen Delivery Method Oxygen Flow Rate 08/01/23 13:35 08/01/23 13:40 08/01/23 13:41 Temperature Pulse Rate 84 81 79 Respiratory Rate 34 H 32 H 55 H Blood Pressure Pulse Oximetry 94 98 98 Oxygen Delivery Method Oxygen Flow Rate 08/01/23 13:41 08/01/23 13:43 08/01/23 13:45 Temperature Pulse Rate 78 Respiratory Rate 27 H Blood Pressure 92/53 L Pulse Oximetry 95 97 Oxygen Delivery Method Oximask Oxygen Flow Rate 3 08/01/23 13:50 08/01/23 13:51 08/01/23 13:51 Temperature Pulse Rate 78 79 Respiratory Rate 29 H 33 H Blood Pressure 95/44 L Pulse Oximetry 98 97 Oxygen Delivery Method Oxygen Flow Rate 08/01/23 13:55 08/01/23 14:00 08/01/23 14:01 Temperature Pulse Rate 79 76 75 Respiratory Rate 34 H 34 H 33 H Blood Pressure Pulse Oximetry 98 93 95 Oxygen Delivery Method Oxygen Flow Rate 08/01/23 14:01 Temperature Pulse Rate Respiratory Rate Blood Pressure 110/43 L Pulse Oximetry Oxygen Delivery Method Oxygen Flow Rate MDM - SOB/Dyspnea Differential Diagnosis Differential diagnosis: Likely acute exacerbation of chronic obstructive airways disease, congestive heart failure and community acquired pneumonia Lab Data 08/02/23 04:39 08/02/23 04:39 Labs: Lab Results 08/01/23 08/01/23 08/01/23 Range/Units 11:23 11:38 11:45 WBC 12.0 H (4.5-11.0) X10^3/uL RBC 4.81 (4.0-5.2) X10^6/uL Hgb 15.3 (12.0-16.0) g/dL Hct 46.1 H (36-46) % MCV 95.9 (80-100) fL MCH 31.7 (26-34) PG MCHC 33.1 (30-36) % RDW 13.3 (11.6-14.8) % Plt Count 235 (150-400) X10^3/uL Neut % (Auto) 77.7 H (50-75) % Lymph % (Auto) 9.3 L (25-40) % [place] % (Auto) 11.1 (3-14) % Eos % (Auto) 1.4 L (2-4) % Baso % (Auto) 0.5 (0-2) % Neut # (Auto) 9300 H (5202-2868) /uL Lymph # (Auto) 1100 (1146-1414) /uL [place] # (Auto) 1300 H (0-900) /uL Eos # (Auto) 200 (0-450) /uL Baso # (Auto) 100 (0-100) /uL PT 16.6 H (9.4-12.5) SECONDS INR 1.4 H (0.9-1.3) ABG Sample Site ABG pH 7.42 (7.35-7.45) ABG pCO2 42.3 (35-45) mmHg ABG pO2 75 L (80-100) mmHg ABG HCO3 28 H (23-27) mmol/L ABG Total CO2 29 H (23-27) mmol/L ABG O2 Saturation 95 (95-100) % ABG Base Excess 3.0 (-2-3) mmol/L FiO2 40 Sodium 138 (137-145) mmol/L Potassium 3.2 L (3.4-5.1) mmol/L Chloride 103 (98-107) mmol/L Carbon Dioxide 32 (22-32) mmol/L BUN 15 (7-17) mg/dL Creatinine 0.92 (0.52-1.04) mg/dL Estimated GFR > 60 (>60) mL/min BUN/Creatinine Ratio 16.3 (6-22) Glucose 116 H (80-110) mg/dL Lactate 1.2 (0.7-2.1) mmol/L Calcium 9.6 (8.4-10.2) mg/dL Total Bilirubin 0.6 (0.2-1.3) mg/dL AST 25 (14-36) IU/L ALT 18 (<35) IU/L Alkaline Phosphatase 111 (38-126) U/L Troponin I < 0.012 (0.01-0.034) ng/mL NT-Pro-B Natriuret Pep 1300 H (<125) pg/mL Total Protein 7.2 (6.3-8.2) g/dL Albumin 3.9 (3.5-5.0) g/dL Globulin 3.3 (1.7-4.1) g/dL Albumin/Globulin Ratio 1.2 (1.0-2.8) Chlamy pneumoniae PCR Not detected (Not Detect) Adenovirus (PCR) Not detected (Not Detect) B.parapertussis DNA PCR Not detected (Not Detecte) Coronavirus OC43 (PCR) Not detected (Not Detect) Coronavirus HKU1 (PCR) Not detected (Not Detect) Coronavirus 229E (PCR) Not detected (Not Detect) SARS-CoV-2 (PCR) Not detected (Not Detecte) Coronavirus NL63 (PCR) Not detected (Not Detect) Human Metapneumovir PCR Not detected (Not Detect) Influenza Type A (PCR) Not detected (Not Detect) Influenza Type B (PCR) Not detected (Not Detect) M. pneumoniae (PCR) Not detected (Not Detect) Parainfluenza 1 (PCR) Not detected (Not Detect) Parainfluenza 2 (PCR) Not detected (Not Detect) Parainfluenza 3 (PCR) Not detected (Not Detect) Parainfluenza 4 (PCR) Not detected (Not Detect) RSV (PCR) Not detected (Not Detect) Entero/Rhino (PCR) Detected H (Not Detect) Imaging Data Chest x-ray: Radiologist's Impression: PROCEDURE: XR CHEST 1V INDICATIONS: Shortness of breath TECHNIQUE: One view of the chest was acquired. COMPARISON: [facility], , XR CHEST 1V, 11/07/2022, 9:54. FINDINGS: Surgical changes and devices: Left-sided pacer. Lungs and pleura: Mild patchy right perihilar and right basilar opacity. No pleural effusions or pneumothorax. Mediastinum: Mediastinal contours appear normal. Heart size is enlarged.. Bones and chest wall: No suspicious bony lesions. Overlying soft tissues appear unremarkable. IMPRESSION: 1. Cardiomegaly. 2. Right pneumonia. Continued plain film surveillance is recommended to ensure resolution, and to exclude underlying or central malignancy. Dictated by: Ralph Guzman M.D. on 08/01/2023 at 11:46 Approved by: Ralph Guzman M.D. on 08/01/2023 at 11:47 MDM Narrative Medical decision making narrative: Acute on chronically ill-appearing patient with worsening work of breathing. She has obvious pursed lip breathing and coarse breath sounds bilaterally. She was saturating in the 90s on her usual 3 L nasal cannula, however her work of breathing is intense. Respiratory therapy paged out on arrival for assessment. Suspect component of COPD exacerbation. Multiple DuoNebs, steroids, IV antibiotics ordered for coverage. Laboratory work is reviewed, significant for leukocytosis with WBC count 11.9, hemoglobin 14.7, platelets 239. Sodium 138, potassium 3.2, creatinine 0.92, troponin undetectable, BNP 1300. Chest x-ray is significant for right-sided pneumonia. Patient breathing somewhat more comfortably after receiving nebulizers. PORT/PSI score elevated, plan to keep patient for IV antibiotics and further assessment. Prior to admission acceptance patient's blood pressure dropped. With her history of congestive heart failure and elevated BNP reluctant to add additional IV fluids. PICC team consulted for placement of IV line in case pressors are needed. Critical Care Time Critical Care Time Critical Care Time: Yes Total Critical Care Time: 41 Attestation: Acute hypoxemic respiratory failure requiring multiple nebulizers, frequent reassessments. Hypotension requiring PICC line placement for IV blood pressors Discharge Plan Departure Patient Disposition: Admitted As Inpatient Clinical Impression: Acute hypoxemic respiratory failure, Pneumonia Admit Date/Time: 08/01/23 14:02 Admit Provider: Armin Echols
[2023-08-01] MEDS: ALBUTEROL/IPRATROPIUM 3 ML AMPUL 9 ML INH (11:25)
[2023-08-01 12:01] LABS: Add Manual Diff / Slide Review NO; Basophils Absolute Auto 100 /uL (0-100); Basophils Percent Auto 0.5 % (0-2); Eosinophils Absolute Auto 200 /uL (0-450); Eosinophils Percent Auto 1.4 % (2-4); Hematocrit 46.1 % (36-46); Hemoglobin 15.3 g/dL (12.0-16.0); Lymphocytes Absolute Auto 1100 /uL (1100-4500); Lymphocytes Percent Auto 9.3 % (25-40); Mean Corpuscular HGB Conc 33.1 % (30-36); Mean Corpuscular Hemoglobin 31.7 PG (26-34); Mean Corpuscular Volume 95.9 fL (80-100); Monocytes Absolute Auto 1300 /uL (0-900); Monocytes Percent Auto 11.1 % (3-14); Neutrophils Absolute Auto 9300 /uL (1500-7000); Neutrophils Percent Auto 77.7 % (50-75); Platelet Count 235 X10^3/uL (150-400); Red Blood Cell Count 4.81 X10^6/uL (4.0-5.2); Red Cell Distribution Width 13.3 % (11.6-14.8)
[2023-08-01 12:07] LABS: INR 1.4 (0.9-1.3); Prothrombin Time 16.6 SECONDS (9.4-12.5)
[2023-08-01] MEDS: cefTRIAXone 2,000 MG in SODIUM CHLORIDE 0.9% 100 ML 200 MG IV (12:07)
[2023-08-01] MEDS: methylPREDNISolone 125 MG/2 ML VIAL IV (12:07)
[2023-08-01] MEDS: SODIUM CHLORIDE 0.9% 1,000 ML 1000 ML IV (12:08)
[2023-08-01 12:12] LABS: Alanine Aminotransferase 18 IU/L (<35); Albumin 3.9 g/dL (3.5-5.0); Albumin Globulin Ratio 1.2 (1.0-2.8); Alkaline Phosphatase 111 U/L (38-126); Aspartate Aminotransferase 25 IU/L (14-36); BUN Creatinine Ratio 16.3 (6-22); Bilirubin Total 0.6 mg/dL (0.2-1.3); Blood Urea Nitrogen 15 mg/dL (7-17); Calcium 9.6 mg/dL (8.4-10.2); Carbon Dioxide 32 mmol/L (22-32); Chloride 103 mmol/L (98-107); Estimated Glomerular Filt Rate > 60 mL/min (>60); Globulin 3.3 g/dL (1.7-4.1); Glucose 116 mg/dL (80-110); HEMOLYSIS < 15 (0-50); Potassium 3.2 mmol/L (3.4-5.1); Sodium 138 mmol/L (137-145); Total Protein 7.2 g/dL (6.3-8.2)
[2023-08-01 12:23] LABS: NT-proBNP (BNP-Adult 18+) 1300 pg/mL (<125); Troponin I < 0.012 ng/mL (0.01-0.034)
[2023-08-01 12:51] LABS: Lactate (Lactic Acid) 1.2 mmol/L (0.7-2.1)
[2023-08-01 12:55] LABS: Adenovirus Not Detected (Not Detect); B. parapertussis Not Detected (Not Detecte); Bordetella pertussis Not Detected (Not Detect); Chlamydophila pneumoniae Not Detected (Not Detect); Coronavirus 229E Not Detected (Not Detect); Coronavirus HKU1 Not Detected (Not Detect); Coronavirus NL 63 Not Detected (Not Detect); Coronavirus OC43 Not Detected (Not Detect); Human Metapneumovirus Not Detected (Not Detect); Human Rhinovirus/Enterovirus Detected (Not Detect); Influenza A Not Detected (Not Detect); Influenza B Not Detected (Not Detect); Mycoplasma pneumoniae Not Detected (Not Detect); Parainfluenza Virus 1 Not Detected (Not Detect); Parainfluenza Virus 2 Not Detected (Not Detect); Parainfluenza Virus 3 Not Detected (Not Detect); Parainfluenza Virus 4 Not Detected (Not Detect); Respiratory Syncytial Virus Not Detected (Not Detect); SARS- CoV-2 Not Detected (Not Detecte)
--- NOTE | 2023-08-01 12:55 | PC.NURSE ---
IV stopped upon complaint from pt that her arm is from the IV up to the shoulder is hurting. IV flushed and blood drawn back. new IV started below prior site and IV solution continued. left previous IV site intact to rest.
[2023-08-01] MEDS: AZITHROMYCIN 500 MG in DEXTROSE 5% IN WATER 250 ML 250 MG IV (13:05)
[2023-08-01] MEDS: ALBUTEROL/IPRATROPIUM 3 ML AMPUL INH ×3 (13:42→23:40)
[2023-08-01 13:48] LABS: PCO2 ABG 42.3 mmHg (35-45); pH ABG 7.42 (7.35-7.45)
[2023-08-01 13:49] LABS: Fractionated Inspired Oxygen 40; HCO3 ABG 28 mmol/L (23-27); Oxygen Saturation ABG 95 % (95-100); PO2 ABG 75 mmHg (80-100); TCO2 ABG 29 mmol/L (23-27)
--- NOTE | 2023-08-01 13:52 | PC.NURSE ---
provider updated frequently about patient's blood pressure. MAP right around 65. order for picc line placed after discussion about no more fluids.
--- NOTE | 2023-08-01 13:57 | DI.RAD.S_ITS ---
PROCEDURE: XR CHEST FOR PICC 1V INDICATIONS: line placement TECHNIQUE: One view of the chest was acquired. COMPARISON: [facility], , XR CHEST 1V, 08/01/2023, 11:27. . FINDINGS: Patient is rotated Surgical changes and devices: Right-sided catheter is present, tip of which projects over the region of the right brachiocephalic vein. Left-sided pacer is present. Lungs and pleura: Mild patchy bilateral perihilar and basilar reticulonodular pulmonary opacities No pleural effusions or pneumothorax. Mediastinum: Mediastinal contours appear normal. Heart size is enlarged. Bones and chest wall: No suspicious bony lesions. Overlying soft tissues appear unremarkable. IMPRESSION: 1. Limited evaluation secondary to rotation, which limits localization of the catheter, which projects over the region of the brachiocephalic vein. 2. Cardiomegaly. 3. Mild atypical pneumonia versus edema. Dictated by: Ralph Guzman M.D. on 08/01/2023 at 15:14 Approved by: Ralph Guzman M.D. on 08/01/2023 at 15:16
--- NOTE | 2023-08-01 16:26 | PM.HP.1 ---
History of Present Illness History of Present Illness Date Patient Seen: 08/01/23 Time Patient Seen: 13:30 Chief complaint: coughing, green spetum, low O2 Narrative: 57-year-old female with COPD, chronic hypoxic respiratory failure (prescribed 2-3 L of oxygen continuously), chronic systolic congestive heart failure (EF 25%), coronary artery disease with her 1st NC at age 29 previous cardiac arrest status post pacemaker/AICD placement, diabetes mellitus type 2 on oral antidiabetic agents, class 3 obesity who presents with shortness of breath for the past 4 days. Her grandson had a cold recently, denies any other sick contacts. She presented with wheezing, productive cough, shortness of breath. She is on her baseline 3L currently in the ER. She denies overt fever or chills. Blood pressure was a bit soft, PICC line was ordered by the ER as trend was looking as if she may need some pressure support medications. Admitted to the ICU for sepsis due to pneumonia with possible developing septic shock. [facility] Medical History CAD (coronary artery disease) Congestive heart failure COPD (chronic obstructive pulmonary disease) Surgical History AICD (automatic cardioverter/defibrillator) present H/O heart artery stent Social History household members: none lives independently: Yes Smoking Status: Current every day smoker alcohol intake: never Meds Home Medications and Allergies Home Medications Medication Instructions Recorded Confirmed Type albuterol sulfate 90 mcg/actuation 2 puff inhalation QID PRN 07/17/22 08/01/23 History aerosol inhaler (Ventolin HFA) Shortness Of Breath amiodarone 200 mg tablet 100 mg PO DAILY 07/17/22 08/01/23 History apixaban 5 mg tablet (Eliquis) 5 mg PO BID 07/17/22 08/01/23 History albuterol sulfate 90 mcg/actuation 2 inh inhalation Q4H PRN Shortness 08/29/22 08/01/23 History breath activated powder inhaler Of Breath (ProAir RespiClick) dextromethorphan-guaifenesin 30 1 tab PO BEDTIME 08/29/22 08/01/23 History mg-600 mg tablet extended [id number] hr (Mucinex DM) methocarbamol 500 mg tablet 500 mg PO TID PRN Muscle Spasm 08/29/22 08/01/23 History metoprolol succinate 25 mg 25 mg PO DAILY 08/29/22 08/01/23 History tablet,extended release 24 hr multivitamin 1 tab PO DAILY 08/29/22 08/01/23 History promethazine 25 mg tablet 25 mg PO Q6H PRN Nausea 08/29/22 08/01/23 History fluticasone propionate 50 2 spray intranasal BID 11/07/22 08/01/23 History mcg/actuation nasal spray,suspension hydrocodone 5 mg-acetaminophen 325 1 tab PO Q6H PRN Pain (Scale Score 11/07/22 08/01/23 History mg tablet 1-3) albuterol sulfate 2.5 mg/3 mL 2.5 mg inhalation 4XD PRN wheezing 08/01/23 08/01/23 History (0.083 %) solution for nebulization budesonide 0.5 mg/2 mL suspension 0.5 mg inhalation BID 08/01/23 08/01/23 History for nebulization empagliflozin 10 mg tablet 10 mg PO DAILY 08/01/23 08/01/23 History (Jardiance) furosemide 40 mg tablet 80 mg PO DAILY 08/01/23 08/01/23 History mexiletine 150 mg capsule 150 mg PO BID 08/01/23 08/01/23 History montelukast 10 mg tablet 10 mg PO BEDTIME 08/01/23 08/01/23 History sacubitril 24 mg-valsartan 26 mg 1 tab PO BID 08/01/23 08/01/23 History tablet (Entresto) Allergies Allergy/AdvReac Type Severity Reaction Status Date / Time bee pollen Allergy Severe Anaphylaxis Verified 08/01/23 11:23 Fish Containing Products Allergy Severe Anaphylaxis Verified 08/01/23 11:23 shellfish derived Allergy Severe Anaphylaxis Verified 08/01/23 11:23 codeine Allergy Verified 08/01/23 11:23 erythromycin base Allergy Verified 08/01/23 11:23 iodine Allergy Rash Verified 08/01/23 11:23 latex Allergy Rash Verified 08/01/23 11:23 pamabrom [From Midol] Allergy Verified 08/01/23 11:23 doxycycline AdvReac Vomiting Verified 08/01/23 11:23 Review of Systems Review of Systems Narrative: All other systems reviewed with the patient and are negative unless otherwise stated. Exam Vital Signs (past 8 hours): - 08/01/23 11:10 08/01/23 11:19 08/01/23 11:19 Temperature 97.5 F L Pulse Rate 64 84 Respiratory Rate 54 H 54 H Blood Pressure 104/72 102/59 L Pulse Oximetry 93 91 Oxygen Delivery Method Room Air Oxygen Flow Rate 08/01/23 11:20 08/01/23 11:22 08/01/23 11:22 Temperature Pulse Rate 83 80 Respiratory Rate Blood Pressure 101/47 L Pulse Oximetry 90 L 95 Oxygen Delivery Method Oxygen Flow Rate 08/01/23 11:25 08/01/23 11:25 08/01/23 11:30 Temperature Pulse Rate 79 82 80 Respiratory Rate 24 27 H 32 H Blood Pressure Pulse Oximetry 95 94 97 Oxygen Delivery Method Oximask Oxygen Flow Rate 3 08/01/23 11:32 08/01/23 11:32 08/01/23 11:35 Temperature Pulse Rate 80 83 Respiratory Rate 34 H 29 H Blood Pressure 101/53 L Pulse Oximetry 97 97 Oxygen Delivery Method Oxygen Flow Rate 08/01/23 11:39 08/01/23 11:39 08/01/23 11:40 Temperature Pulse Rate 81 80 Respiratory Rate 39 H 32 H Blood Pressure 99/49 L Pulse Oximetry 97 97 Oxygen Delivery Method Oxygen Flow Rate 08/01/23 11:45 08/01/23 11:45 08/01/23 11:50 Temperature Pulse Rate 82 80 Respiratory Rate 38 H 33 H Blood Pressure 86/47 L Pulse Oximetry 97 95 Oxygen Delivery Method Oxygen Flow Rate 08/01/23 11:50 08/01/23 11:55 08/01/23 11:55 Temperature Pulse Rate 80 Respiratory Rate 32 H Blood Pressure 98/54 L 99/48 L Pulse Oximetry 94 Oxygen Delivery Method Oxygen Flow Rate 08/01/23 12:00 08/01/23 12:00 08/01/23 12:05 Temperature Pulse Rate 82 79 Respiratory Rate 35 H 30 H Blood Pressure 96/50 L Pulse Oximetry 94 96 Oxygen Delivery Method Oxygen Flow Rate 08/01/23 12:05 08/01/23 12:10 08/01/23 12:11 Temperature Pulse Rate 82 Respiratory Rate 45 H Blood Pressure 94/48 L 97/44 L Pulse Oximetry 94 Oxygen Delivery Method Oxygen Flow Rate 08/01/23 12:11 08/01/23 12:15 08/01/23 12:16 Temperature Pulse Rate 82 69 Respiratory Rate 27 H 34 H Blood Pressure 95/51 L Pulse Oximetry 94 96 Oxygen Delivery Method Oxygen Flow Rate 08/01/23 12:16 08/01/23 12:20 08/01/23 12:21 Temperature Pulse Rate 76 79 Respiratory Rate 44 H 26 H Blood Pressure 100/49 L Pulse Oximetry 94 94 Oxygen Delivery Method Oxygen Flow Rate 08/01/23 12:21 08/01/23 12:25 08/01/23 12:25 Temperature Pulse Rate 80 82 Respiratory Rate 38 H 38 H Blood Pressure 103/46 L Pulse Oximetry 94 95 Oxygen Delivery Method Oxygen Flow Rate 08/01/23 12:30 08/01/23 12:30 08/01/23 12:35 Temperature Pulse Rate 82 Respiratory Rate 31 H Blood Pressure 95/50 L 97/41 L Pulse Oximetry 96 Oxygen Delivery Method Oxygen Flow Rate 08/01/23 12:35 08/01/23 12:40 08/01/23 12:44 Temperature Pulse Rate 79 77 76 Respiratory Rate 29 H 24 29 H Blood Pressure Pulse Oximetry 96 97 97 Oxygen Delivery Method Oxygen Flow Rate 08/01/23 12:44 08/01/23 12:45 08/01/23 12:45 Temperature Pulse Rate 77 Respiratory Rate 28 H Blood Pressure 87/48 L 100/50 L Pulse Oximetry 97 Oxygen Delivery Method Oxygen Flow Rate 08/01/23 12:50 08/01/23 12:51 08/01/23 12:51 Temperature Pulse Rate 77 78 Respiratory Rate 32 H 30 H Blood Pressure 112/48 L Pulse Oximetry 96 97 Oxygen Delivery Method Oxygen Flow Rate 08/01/23 12:55 08/01/23 13:00 08/01/23 13:05 Temperature Pulse Rate 76 80 76 Respiratory Rate 28 H 46 H 29 H Blood Pressure Pulse Oximetry 94 91 91 Oxygen Delivery Method Oxygen Flow Rate 08/01/23 13:05 08/01/23 13:10 08/01/23 13:10 Temperature Pulse Rate 75 Respiratory Rate 25 H Blood Pressure 92/44 L 96/46 L Pulse Oximetry 93 Oxygen Delivery Method Oxygen Flow Rate 08/01/23 13:15 08/01/23 13:20 08/01/23 13:21 Temperature Pulse Rate 68 84 Respiratory Rate 32 H 32 H Blood Pressure 82/41 L Pulse Oximetry 94 94 Oxygen Delivery Method Oxygen Flow Rate 08/01/23 13:21 08/01/23 13:25 08/01/23 13:30 Temperature Pulse Rate 85 78 85 Respiratory Rate 34 H 34 H 37 H Blood Pressure Pulse Oximetry 92 92 95 Oxygen Delivery Method Oxygen Flow Rate 08/01/23 13:35 08/01/23 13:40 08/01/23 13:41 Temperature Pulse Rate 84 81 79 Respiratory Rate 34 H 32 H 55 H Blood Pressure Pulse Oximetry 94 98 98 Oxygen Delivery Method Oxygen Flow Rate 08/01/23 13:41 08/01/23 13:43 08/01/23 13:45 Temperature Pulse Rate 78 Respiratory Rate 27 H Blood Pressure 92/53 L Pulse Oximetry 95 97 Oxygen Delivery Method Oximask Oxygen Flow Rate 3 08/01/23 13:50 08/01/23 13:51 08/01/23 13:51 Temperature Pulse Rate 78 79 Respiratory Rate 29 H 33 H Blood Pressure 95/44 L Pulse Oximetry 98 97 Oxygen Delivery Method Oxygen Flow Rate 08/01/23 13:55 08/01/23 14:00 08/01/23 14:01 Temperature Pulse Rate 79 76 75 Respiratory Rate 34 H 34 H 33 H Blood Pressure Pulse Oximetry 98 93 95 Oxygen Delivery Method Oxygen Flow Rate 08/01/23 14:01 08/01/23 14:05 08/01/23 14:10 Temperature Pulse Rate 80 80 Respiratory Rate 39 H 28 H Blood Pressure 110/43 L Pulse Oximetry 96 97 Oxygen Delivery Method Oxygen Flow Rate 08/01/23 14:11 08/01/23 14:11 08/01/23 14:15 Temperature Pulse Rate 80 81 Respiratory Rate 31 H 31 H Blood Pressure 91/40 L Pulse Oximetry 97 96 Oxygen Delivery Method Oxygen Flow Rate 08/01/23 14:20 08/01/23 14:21 08/01/23 14:21 Temperature Pulse Rate 69 72 Respiratory Rate 41 H 33 H Blood Pressure 83/42 L Pulse Oximetry 93 97 Oxygen Delivery Method Oxygen Flow Rate 08/01/23 14:31 08/01/23 14:34 08/01/23 14:34 Temperature Pulse Rate 75 79 Respiratory Rate 24 Blood Pressure 102/51 L Pulse Oximetry 95 Oxygen Delivery Method Oxygen Flow Rate 08/01/23 14:35 08/01/23 15:05 08/01/23 15:58 Temperature Pulse Rate 80 66 Respiratory Rate 28 H 28 H Blood Pressure 95/49 L Pulse Oximetry 95 94 Oxygen Delivery Method Oximask Oxygen Flow Rate 3 Oxygen Delivery Method Oximask Oxygen Flow Rate 3 Narrative Exam Narrative: GEN: sitting upright, audible wheezing on entering room, constant coughing to the point of dry heaving, slight tachypnea, appears uncomfortable. HEENT: moist mucous membranes, PERRL NECK: trachea midline, no JVD PULM: inspiratory and expiratory wheezing, with bilateral rhonchi at the bases. CV: irregular, no murmurs MSK: neck muscles very hypertonic in suboccipital region extending to traps ABD: soft, nontender, nondistended, no organomegaly, normal bowel sounds EXT: warm and well perfused with trace peripheral edema NEURO: awake, alert, oriented, no focal deficits Objective Labs 08/01/23 11:45 08/01/23 11:45 Labs: Laboratory Results - last 24 hr 08/01/23 08/01/23 08/01/23 11:23 11:38 11:45 WBC 12.0 H RBC 4.81 Hgb 15.3 Hct 46.1 H MCV 95.9 MCH 31.7 MCHC 33.1 RDW 13.3 Plt Count 235 Neut % (Auto) 77.7 H Lymph % (Auto) 9.3 L [place] % (Auto) 11.1 Eos % (Auto) 1.4 L Baso % (Auto) 0.5 Neut # (Auto) 9300 H Lymph # (Auto) 1100 [place] # (Auto) 1300 H Eos # (Auto) 200 Baso # (Auto) 100 PT 16.6 H INR 1.4 H ABG Sample Site ABG pH 7.42 ABG pCO2 42.3 ABG pO2 75 L ABG HCO3 28 H ABG Total CO2 29 H ABG O2 Saturation 95 ABG Base Excess 3.0 FiO2 40 Sodium 138 Potassium 3.2 L Chloride 103 Carbon Dioxide 32 BUN 15 Creatinine 0.92 Estimated GFR > 60 BUN/Creatinine Ratio 16.3 Glucose 116 H Lactate 1.2 Calcium 9.6 Total Bilirubin 0.6 AST 25 ALT 18 Alkaline Phosphatase 111 Troponin I < 0.012 NT-Pro-B Natriuret Pep 1300 H Total Protein 7.2 Albumin 3.9 Globulin 3.3 Albumin/Globulin Ratio 1.2 Chlamy pneumoniae PCR Not detected Adenovirus (PCR) Not detected B.parapertussis DNA PCR Not detected Coronavirus OC43 (PCR) Not detected Coronavirus HKU1 (PCR) Not detected Coronavirus 229E (PCR) Not detected SARS-CoV-2 (PCR) Not detected Coronavirus NL63 (PCR) Not detected Human Metapneumovir PCR Not detected Influenza Type A (PCR) Not detected Influenza Type B (PCR) Not detected M. pneumoniae (PCR) Not detected Parainfluenza 1 (PCR) Not detected Parainfluenza 2 (PCR) Not detected Parainfluenza 3 (PCR) Not detected Parainfluenza 4 (PCR) Not detected RSV (PCR) Not detected Entero/Rhino (PCR) Detected H Assessment & Plan Assessment & Plan narrative: 1. COPD with exacerbation ?- exacerbation probably due to rhinovirus with possible superimposed bacterial PNA ?- RT eval and treat, start nebulizer therapies and albuterol as needed ?- continue prednisone 40 mg daily 2. Rhinovirus infection with possible superimposed bacterial pneumonia and sepsis with acute on chronic respiratory failure with hypoxia and hypercapnea, and hypotension ?- Resp PCR positive for rhinovirus ?- WBC elevated, may be indicative of a bacterial pneumonia. - SOFA score of 4 with hypotension, PF ratio based on arterial blood gas is 218 but does have some chronic hypoxia due to COPD. - continue ceftriaxone and azithromycin for presumed bacterial PNA. - monitor blood pressure, keep in ICU for now in case shock develops over the coming hours. If pressors are needed, will consult tele-machinist brake. 3. chronic systolic heart failure, acute likely ruled out or overdiuresed. 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 ?- will hold home entresto for now with hypotension 4. Acute on chronic hypoxemic respiratory failure, acute now resolved ?- She is typically on 3L at home. At baseline O2 use but not symptom lane. ?- CTA negative for PE. Did show tree and bud pattern consistent with possible pneumonia. 5. Coronary artery disease with prior NC - Troponin was unremarkable. 6. History of cardiac arrest, status post pacemaker/AICD placement 7. Atrial fibrillation on chronic anticoagulation with Eliquis ?- continue eliquis 8. Diabetes mellitus type 2 -continue high dose sliding scale. -not on home lantus, previous needed lantus with steroids will monitor. 9. Class 3 obesity with BMI of 40 - Her obesity puts her at significant risk of morbidity and mortality.? Would greatly benefit from weight reduction though she has lost weight recently. 10. Chronic pain syndrome - continue home medications 12. Hypertension - continue home medications 13. Hyperlipidemia - Continue home medications Code: Full surrogate is patient's daughter and granddaughter. DVT prophylaxis: Apixaban Dispo: Admit ICU, inpatient. I spent 45 minutes providing critical care management this patient. This excludes time spent in performing separately billed procedures. Scores SOFA PaO2/FIO2: < 220 mmHg Platelets: >= 150 Bilirubin: < 1.2 mg/dL Hypotension: MAP < 70 mmHg Simon Coma Scale: 15 Renal: < 1.2 mg/dL SOFA Score: 4
[2023-08-01 16:31] LABS: MRSA (Nasal) PCR Not Detected (Not Detect)
[2023-08-01 17:02] LABS: Appearance Urine UA CLEAR; Bilirubin Urine UA NEGATIVE (NEGATIVE); Color Urine UA YELLOW; Glucose Urine UA 3+ g/dL (Negative); Ketones Urine UA NEGATIVE (NEGATIVE); Leukocyte Esterase Urine UA NEGATIVE (NEGATIVE); Nitrite Urine UA NEGATIVE (Negative); Occult Blood Urine UA NEGATIVE (Negative); Protein Urine UA NEGATIVE (Negative); Specific Gravity Urine UA <=1.005 (1.000-1.035); Urobilinogen Urine UA 0.2 E.U./dL (0.2)
[2023-08-01 17:12] LABS: Bacteria Urine None Seen; Culture Indicated Urine Cult Not Indicated; RBC Urine None Seen (0-5/HPF); Squamous Epithelial Cell Urine None Seen (0-5/HPF); Urine Volume 10mL (spun); WBC Urine None Seen (0-5/HPF)
[2023-08-01] MEDS: INSULIN LISPRO 100 UNIT/ML 3ML VIAL SUBCUT ×2 (17:13→20:47)
[2023-08-01] MEDS: FUROSEMIDE 40 MG TABLET PO (17:14)
--- NOTE | 2023-08-01 17:36 | PC.NURSE ---
Admit Note Patient arrived to room 231 from the ER at 1445, able to stand and pivot transfer to the bed. Alert and oriented x3. On 3L oxymask which is her home dose of oxygen. On tele V paced in the 60s. BP stable since arrival, see VS trends. Denies pain. RR in the 20-30s, appears labored, especially with exertion although pt reports breathing has overall improved since arrival to ER. Oriented to call light/tv/bed controls, call light within reach. Purse and cell phone at bedside. Own home oxygen in room along with shoes/clothing.
[2023-08-01] MEDS: ALBUTEROL 2.5 MG/3 ML NEB (ADULT) INH (19:31)
[2023-08-01] MEDS: BUDESONIDE 0.5 MG/2 ML NEB INH (19:31)
[2023-08-01] MEDS: APIXABAN 5 MG TABLET PO (20:47)
[2023-08-01] MEDS: MONTELUKAST 10 MG TABLET PO (20:47)
[2023-08-01] MEDS: HYDROCODONE/ACET 5/325 TABLET 1 TAB PO (20:50)
[2023-08-02] VITALS (269 sets, daily range): BP systolic 113–150; BP diastolic 53–68; PULSE 60–173; RESP 18–62; TEMP 35.8–36.6; O2SAT 84–99
[2023-08-02] MEDS: HYDROCODONE/ACET 10/325 TABLET 1 TAB PO (01:28)
[2023-08-02] MEDS: ALBUTEROL/IPRATROPIUM 3 ML AMPUL INH ×6 (04:01→22:53)
[2023-08-02 04:53] LABS: Add Manual Diff / Slide Review NO; Basophils Absolute Auto 0 /uL (0-100); Basophils Percent Auto 0.4 % (0-2); Eosinophils Absolute Auto 0 /uL (0-450); Hematocrit 43.5 % (36-46); Hemoglobin 14.7 g/dL (12.0-16.0); Lymphocytes Absolute Auto 900 /uL (1100-4500); Lymphocytes Percent Auto 7.8 % (25-40); Mean Corpuscular HGB Conc 33.7 % (30-36); Mean Corpuscular Hemoglobin 32.3 PG (26-34); Mean Corpuscular Volume 95.7 fL (80-100); Monocytes Absolute Auto 500 /uL (0-900); Monocytes Percent Auto 4.3 % (3-14); Neutrophils Absolute Auto 10400 /uL (1500-7000); Neutrophils Percent Auto 87.5 % (50-75); Platelet Count 239 X10^3/uL (150-400); Red Blood Cell Count 4.55 X10^6/uL (4.0-5.2); Red Cell Distribution Width 13.3 % (11.6-14.8); White Blood Cell Count 11.9 X10^3/uL (4.5-11.0)
[2023-08-02 06:02] LABS: Alanine Aminotransferase 18 IU/L (<35); Albumin 3.6 g/dL (3.5-5.0); Albumin Globulin Ratio 1.2 (1.0-2.8); Alkaline Phosphatase 104 U/L (38-126); Aspartate Aminotransferase 25 IU/L (14-36); BUN Creatinine Ratio 20.2 (6-22); Bilirubin Total 0.4 mg/dL (0.2-1.3); Blood Urea Nitrogen 21 mg/dL (7-17); Calcium 9.4 mg/dL (8.4-10.2); Carbon Dioxide 32 mmol/L (22-32); Chloride 104 mmol/L (98-107); Estimated Glomerular Filt Rate > 60 mL/min (>60); Globulin 3.1 g/dL (1.7-4.1); Glucose 154 mg/dL (80-110); HEMOLYSIS 16 (0-50); Magnesium 2.2 mg/dL (1.6-2.3); Potassium 3.5 mmol/L (3.4-5.1); Sodium 140 mmol/L (137-145); Total Protein 6.7 g/dL (6.3-8.2)
[2023-08-02] MEDS: BUDESONIDE 0.5 MG/2 ML NEB INH ×2 (06:24→19:41)
[2023-08-02] MEDS: BENZONATATE 100 MG CAPSULE 200 MG PO ×3 (07:51→20:25)
[2023-08-02] MEDS: ENOXAPARIN 40 MG/0.4 ML SYRINGE SUBCUT (08:07)
[2023-08-02] MEDS: FUROSEMIDE 40 MG TABLET PO ×2 (08:07→16:30)
[2023-08-02] MEDS: METOPROLOL ER 25 MG TABLET PO (08:07)
[2023-08-02] MEDS: MULTIVITAMIN 1 TABLET 1 TAB PO (08:07)
[2023-08-02] MEDS: APIXABAN 5 MG TABLET PO ×2 (08:07→20:17)
[2023-08-02] MEDS: AMIODARONE 200 MG TABLET 100 MG PO (08:07)
[2023-08-02] MEDS: predniSONE 20 MG TABLET 40 MG PO (08:08)
[2023-08-02] MEDS: INSULIN LISPRO 100 UNIT/ML 3ML VIAL SUBCUT ×4 (08:09→20:22)
[2023-08-02] MEDS: HYDROCODONE/ACET 5/325 TABLET 1 TAB PO (09:41)
[2023-08-02] MEDS: CODEINE/GUAIFENESIN LIQUID 5ML UDC 10 ML PO ×3 (10:45→21:53)
[2023-08-02] MEDS: cefTRIAXone 1,000 MG in SODIUM CHLORIDE 0.9% 100 ML 200 MG IV (11:50)
[2023-08-02] MEDS: POTASSIUM CHLORIDE 20 MEQ TAB PO (12:21)
[2023-08-02] MEDS: AZITHROMYCIN 500 MG in DEXTROSE 5% IN WATER 250 ML 250 MG IV (12:21)
--- NOTE | 2023-08-02 13:53 | PM.PN.1 ---
Subjective Subjective Interval history: Continues to have subjective dyspnea, severe cough. No fever or chills. Exam Vital Signs (past 8 hours): - 08/02/23 05:55 08/02/23 06:00 08/02/23 06:05 Temperature Pulse Rate 80 84 80 Respiratory Rate 29 H 34 H 28 H Blood Pressure Pulse Oximetry 93 90 L 89 L Oxygen Delivery Method Oxygen Flow Rate 08/02/23 06:10 08/02/23 06:15 08/02/23 06:20 Temperature Pulse Rate 104 H 70 77 Respiratory Rate 28 H 28 H 30 H Blood Pressure Pulse Oximetry 89 L 90 L 92 Oxygen Delivery Method Oxygen Flow Rate 08/02/23 06:24 08/02/23 06:25 08/02/23 06:30 Temperature Pulse Rate 77 81 73 Respiratory Rate 20 27 H 28 H Blood Pressure Pulse Oximetry 90 L 91 93 Oxygen Delivery Method Oximask Oxygen Flow Rate 3 08/02/23 06:35 08/02/23 06:40 08/02/23 06:45 Temperature Pulse Rate 83 96 H 99 H Respiratory Rate 27 H 47 H 53 H Blood Pressure Pulse Oximetry 90 L 86 L 91 Oxygen Delivery Method Oxygen Flow Rate 08/02/23 06:50 08/02/23 06:55 08/02/23 07:00 Temperature Pulse Rate 100 H 91 H 86 Respiratory Rate 62 H 50 H 33 H Blood Pressure Pulse Oximetry 90 L 91 90 L Oxygen Delivery Method Oxygen Flow Rate 08/02/23 07:00 08/02/23 07:05 08/02/23 07:10 Temperature Pulse Rate 88 91 H Respiratory Rate 42 H 34 H Blood Pressure Pulse Oximetry 87 L 91 Oxygen Delivery Method Oximask Oxygen Flow Rate 08/02/23 07:15 08/02/23 07:20 08/02/23 07:25 Temperature Pulse Rate 87 87 82 Respiratory Rate 46 H 42 H 33 H Blood Pressure Pulse Oximetry 91 92 91 Oxygen Delivery Method Oxygen Flow Rate 08/02/23 07:30 08/02/23 07:33 08/02/23 07:33 Temperature Pulse Rate 73 72 Respiratory Rate 28 H 31 H Blood Pressure 125/56 L Pulse Oximetry 92 89 L Oxygen Delivery Method Oxygen Flow Rate 08/02/23 07:35 08/02/23 07:40 08/02/23 07:45 Temperature Pulse Rate 76 81 84 Respiratory Rate 37 H 33 H 37 H Blood Pressure Pulse Oximetry 89 L 86 L 89 L Oxygen Delivery Method Oxygen Flow Rate 08/02/23 07:50 08/02/23 07:55 08/02/23 08:00 Temperature Pulse Rate 82 80 71 Respiratory Rate 37 H 35 H 36 H Blood Pressure Pulse Oximetry 89 L 89 L 90 L Oxygen Delivery Method Oxygen Flow Rate 08/02/23 08:05 08/02/23 08:07 08/02/23 08:10 Temperature Pulse Rate 84 83 81 Respiratory Rate 35 H 36 H Blood Pressure 125/56 L Pulse Oximetry 86 L 92 Oxygen Delivery Method Oxygen Flow Rate 08/02/23 08:15 08/02/23 08:20 08/02/23 08:25 Temperature 97.2 F L Pulse Rate 71 83 90 Respiratory Rate 30 H 49 H 36 H Blood Pressure 125/56 L Pulse Oximetry 92 92 88 L Oxygen Delivery Method Oxygen Flow Rate 3 08/02/23 08:30 08/02/23 08:35 08/02/23 08:40 Temperature Pulse Rate 94 H 85 77 Respiratory Rate 56 H 32 H 32 H Blood Pressure Pulse Oximetry 89 L 90 L 91 Oxygen Delivery Method Oxygen Flow Rate 08/02/23 08:45 08/02/23 08:50 08/02/23 08:55 Temperature Pulse Rate 76 73 70 Respiratory Rate 30 H 29 H 37 H Blood Pressure Pulse Oximetry 91 91 91 Oxygen Delivery Method Oxygen Flow Rate 08/02/23 09:00 08/02/23 09:04 08/02/23 09:05 Temperature Pulse Rate 76 81 78 Respiratory Rate 32 H 40 H Blood Pressure Pulse Oximetry 91 93 Oxygen Delivery Method Oxygen Flow Rate 08/02/23 09:10 08/02/23 09:15 08/02/23 09:20 Temperature Pulse Rate 73 72 88 Respiratory Rate 33 H 31 H 40 H Blood Pressure Pulse Oximetry 93 94 92 Oxygen Delivery Method Oxygen Flow Rate 08/02/23 09:25 08/02/23 09:30 08/02/23 09:35 Temperature Pulse Rate 77 71 74 Respiratory Rate 44 H 34 H 38 H Blood Pressure Pulse Oximetry 94 94 91 Oxygen Delivery Method Oxygen Flow Rate 08/02/23 09:40 08/02/23 09:45 08/02/23 09:50 Temperature Pulse Rate 73 79 77 Respiratory Rate 39 H 37 H 27 H Blood Pressure Pulse Oximetry 93 91 88 L Oxygen Delivery Method Oxygen Flow Rate 08/02/23 09:55 08/02/23 10:00 08/02/23 10:05 Temperature Pulse Rate 81 77 72 Respiratory Rate 41 H 29 H 30 H Blood Pressure Pulse Oximetry 88 L 92 91 Oxygen Delivery Method Oxygen Flow Rate 08/02/23 10:10 08/02/23 10:15 08/02/23 10:20 Temperature Pulse Rate 70 74 87 Respiratory Rate 29 H 34 H 42 H Blood Pressure Pulse Oximetry 92 94 93 Oxygen Delivery Method Oxygen Flow Rate 08/02/23 10:25 08/02/23 10:30 08/02/23 10:35 Temperature Pulse Rate 78 80 69 Respiratory Rate 36 H 35 H 41 H Blood Pressure Pulse Oximetry 95 94 93 Oxygen Delivery Method Oxygen Flow Rate 08/02/23 10:40 08/02/23 10:45 08/02/23 10:50 Temperature Pulse Rate 79 69 79 Respiratory Rate 32 H 42 H 33 H Blood Pressure Pulse Oximetry 93 92 91 Oxygen Delivery Method Oxygen Flow Rate 08/02/23 10:55 08/02/23 11:00 08/02/23 11:05 Temperature Pulse Rate 81 78 81 Respiratory Rate 42 H 34 H 38 H Blood Pressure Pulse Oximetry 93 91 90 L Oxygen Delivery Method Oxygen Flow Rate 08/02/23 11:10 08/02/23 11:12 08/02/23 11:15 Temperature Pulse Rate 68 89 79 Respiratory Rate 28 H 28 H 32 H Blood Pressure Pulse Oximetry 92 91 93 Oxygen Delivery Method Oximask Oxygen Flow Rate 08/02/23 11:20 08/02/23 11:25 08/02/23 11:29 Temperature Pulse Rate 73 77 79 Respiratory Rate 25 H 27 H 29 H Blood Pressure Pulse Oximetry 94 89 L 90 L Oxygen Delivery Method Oxygen Flow Rate 08/02/23 11:29 08/02/23 11:30 08/02/23 11:35 Temperature Pulse Rate 89 123 H Respiratory Rate 39 H 47 H Blood Pressure 119/60 Pulse Oximetry 90 L 87 L Oxygen Delivery Method Oxygen Flow Rate 08/02/23 11:40 08/02/23 11:45 08/02/23 11:50 Temperature Pulse Rate 86 77 99 H Respiratory Rate 35 H 31 H 41 H Blood Pressure Pulse Oximetry 91 92 86 L Oxygen Delivery Method Oxygen Flow Rate 08/02/23 11:55 08/02/23 12:00 Temperature Pulse Rate 80 82 Respiratory Rate 35 H 47 H Blood Pressure 119/60 Pulse Oximetry 91 93 Oxygen Delivery Method Oxygen Flow Rate Oxygen Delivery Method Oximask Oxygen Flow Rate 3 Narrative Exam Narrative: GEN: sitting upright, improved wheezing but present, constant coughing, appears uncomfortable. HEENT: moist mucous membranes, PERRL NECK: trachea midline, no JVD PULM: inspiratory and expiratory wheezing, with bilateral rhonchi at the bases. CV: irregular, no murmurs MSK: neck muscles very hypertonic in suboccipital region extending to traps ABD: soft, nontender, nondistended, no organomegaly, normal bowel sounds EXT: warm and well perfused with trace peripheral edema NEURO: awake, alert, oriented, no focal deficits Objective Labs 08/02/23 04:39 08/02/23 04:39 Labs: Laboratory Results - last 24 hr 08/01/23 08/01/23 08/02/23 14:43 15:50 04:39 WBC 11.9 H RBC 4.55 Hgb 14.7 Hct 43.5 MCV 95.7 MCH 32.3 MCHC 33.7 RDW 13.3 Plt Count 239 Neut % (Auto) 87.5 H Lymph % (Auto) 7.8 L [place] % (Auto) 4.3 Eos % (Auto) 0.0 L Baso % (Auto) 0.4 Neut # (Auto) 98086 H Lymph # (Auto) 900 L [place] # (Auto) 500 Eos # (Auto) 0 Baso # (Auto) 0 Sodium 140 Potassium 3.5 Chloride 104 Carbon Dioxide 32 BUN 21 H Creatinine 1.04 Estimated GFR > 60 BUN/Creatinine Ratio 20.2 Glucose 154 H Calcium 9.4 Magnesium 2.2 Total Bilirubin 0.4 AST 25 ALT 18 Alkaline Phosphatase 104 Total Protein 6.7 Albumin 3.6 Globulin 3.1 Albumin/Globulin Ratio 1.2 Urine Color Yellow Urine Appearance Clear Urine pH 6.0 Ur Specific [place] <=1.005 Urine Protein Negative Urine Glucose (UA) 3+ H Urine Ketones Negative Urine Occult Blood Negative Urine Nitrate Negative Urine Bilirubin Negative Urine Urobilinogen 0.2 Ur Leukocyte Esterase Negative Urine RBC None seen Urine WBC None seen Ur Squamous Epith Cells None seen Urine Bacteria None seen Ur Culture Indicated? Cult not indicated Vol Urine Centrifuged 10ml (spun) Nasal Screen MRSA (PCR) Not detected [facility] Medical History CAD (coronary artery disease) Congestive heart failure COPD (chronic obstructive pulmonary disease) Surgical History AICD (automatic cardioverter/defibrillator) present H/O heart artery stent Social History household members: none lives independently: Yes Smoking Status: Current every day smoker alcohol intake: never Assessment & Plan Assessment & Plan narrative: 1. COPD with exacerbation ?- exacerbation probably due to rhinovirus with possible superimposed bacterial PNA ?- RT eval and treat, start nebulizer therapies and albuterol as needed ?- continue prednisone 40 mg daily, may need to convert to IV steroids if no significant improvement today with cough syrups, supportive meds. 2. Rhinovirus infection with possible superimposed bacterial pneumonia and sepsis with acute on chronic respiratory failure with hypoxia and hypercapnea, and hypotension ?- Resp PCR positive for rhinovirus ?- WBC elevated, may be indicative of a bacterial pneumonia. - SOFA score of 4 with hypotension, PF ratio based on arterial blood gas is 218 but does have some chronic hypoxia due to COPD. - continue ceftriaxone and azithromycin for presumed bacterial PNA. - monitor blood pressure, keep in ICU for now in case shock develops over the coming hours. If pressors are needed, will consult tele-manager telemarketing. 3. chronic systolic heart failure, acute likely ruled out or overdiuresed. ?- Last TTE 08/27 with EF 25-30%, new echo will not currently change number operator ?- resume home furosemide as patient was over diuresed last admission with a few doses of IV furosemide. ?- will hold home entresto for now with hypotension 4. Acute on chronic hypoxemic respiratory failure, acute now resolved ?- She is typically on 3L at home. At baseline O2 use but not symptom lane. ?- CTA negative for PE. Did show tree and bud pattern consistent with possible pneumonia. 5. Coronary artery disease with prior PR - Troponin was unremarkable. 6. History of cardiac arrest, status post pacemaker/AICD placement 7. Atrial fibrillation on chronic anticoagulation with Eliquis ?- continue eliquis 8. Diabetes mellitus type 2 -continue high dose sliding scale. -not on home lantus, previous needed lantus with steroids will monitor. 9. Class 3 obesity with BMI of 40 - Her obesity puts her at significant risk of morbidity and mortality.? Would greatly benefit from weight reduction though she has lost weight recently. 10. Chronic pain syndrome - continue home medications 12. Hypertension - continue home medications 13. Hyperlipidemia - Continue home medications Code: Full surrogate is patient's daughter and granddaughter. DVT prophylaxis: Apixaban Dispo: Downgrade to floor care, improved BP. Likely discharge home, maybe in 2-3 days based on current symptoms.
--- NOTE | 2023-08-02 14:10 | CM.DANOTE ---
Initial DCP Assessment Visit Note Reviewed EMR and team rounds for status updates. Met with pt at bedside only briefly due to her going into an acute respiratory distress fit, RN was present and intervening with medications. Pt lives modified-independently in her own home with spouse. Spouse will be available to transport her once she is medically cleared for d/c home, will likely need to resume Home Health services for continued recovery and conditioning. Payor: [facility] PCP: Jolene Steen Pt is a 58 year-old F with a PMH of COPD, CHF, on 3LO2 at baseline. She presents to the ED last evening with worsening cough, shortness of breath, and green sputum. She was tachypneic and in respiratory distress upon ED arrival, spouse was present at bedside. Chest x-ray was consistent with mild atypical pneumonia, symptoms also secondary to COPD/CHF, exacerbation and confirmed Rhinovirus infection. PICC line was placed and pt was started on IV ABO's, nebulizer treatments, steroids, and O2. Breathing reportedly improved after nebulizer treatments. Pt continues to have intense respiratory issues today, has a difficult time talking without going into extreme coughing fits. She was able to express to this APARTMENT HOUSE MANAGER that she was very worried about her food stamp benefits, and that she had received a letter from [facility] earlier this month stating if she didn't contact them by the end of this month that her benefits would be stopped. This APARTMENT HOUSE MANAGER called [facility] and left a detailed message for her financial worker to return call to discuss pt's hospitalization status and request for an extension. Pt was set-up with [facility] at time of d/c from her last admission, APARTMENT HOUSE MANAGER will notify them and assist with new orders to resume services once pt is more medically stable and d/c date is clarified. DCP will continue to follow and assist with evolving DCP support/needs/resources. Discharge Planning/Care Management CM Discharge Assessment Start: 08/02/23 14:06 Freq: Status: Active Protocol: Document 08/02/23 14:06 DPL (Rec: 08/02/23 14:10 DPL [id number]) Discharge Planning Assessment Assigned Market Development Executive GEORGE Tellez Advance Directives? No Advance Directives on File No History Provided By Patient,Medical Record Has Patient been admitted in last 30 No days? Prior Living Arrangements House Household Members none Type of transporation used prior to Relies on Others admit Independent with ADL's No: modified independent with spouse assistance Is patient alert and oriented? Yes: Pt is in respiratory distress but alert/oriented. Needs Assistance With Home Chores / Shopping Caregiver for Another No Community Services used prior to Oxygen Therapy admission: Comment Pt is on 3LO2 at baseline at home. DME Already Rented / Owned Oxygen Patient/Family Preference Home with Home Health Comment Home w/HH expected upon discharge. Family or friends to transport home Discharge Plan Home with Home Health Transportation Arrangement Likely spouse or family to provide transport Referrals Initiated Home Health Additional Comment Pt open with [facility] If patient plan is home with home health No: Resume HH : Has signed face to face form been completed? Medicare choice list reviewed on patient electronic tablet with SNF/HH Preference [facility], already established. Whiteboard Updated in Patient Room with Yes name and ext. # of Market Development Executive Review Status In Process Please Provide Date Initial DC 08/02/23 Assessment Was Performed
[2023-08-02] MEDS: PROMETHAZINE 25 MG TABLET PO (17:40)
--- NOTE | 2023-08-02 18:13 | PC.NURSE ---
pt continues to have a persistent, aggressive cough; she is receiving both tessalon perles and guaifenesin and codeine cough syrup, which help somewhat; she had 1 episode of emesis and was given po phenergan per request; her granddaughter brought her home meds and they were sent to pharmacy
[2023-08-02] MEDS: MONTELUKAST 10 MG TABLET PO (20:17)
[2023-08-02] MEDS: MEXILETINE 150 MG 150 EACH PO (20:17)
[2023-08-02] MEDS: SACUBITRIL VALSARTAN 1 EACH PO (20:17)
[2023-08-02] MEDS: guaiFENesin ER 600 MG TAB PO (20:18)
[2023-08-03] VITALS (205 sets, daily range): BP systolic 103–141; BP diastolic 57–62; PULSE 60–123; RESP 18–48; TEMP 36.1–36.4; O2SAT 82–99
[2023-08-03] MEDS: ALBUTEROL/IPRATROPIUM 3 ML AMPUL INH ×6 (03:07→23:28)
[2023-08-03] MEDS: CODEINE/GUAIFENESIN LIQUID 5ML UDC 10 ML PO ×2 (04:08→19:37)
[2023-08-03] MEDS: HYDROCODONE/ACET 5/325 TABLET 1 TAB PO (04:09)
[2023-08-03 04:22] LABS: Add Manual Diff / Slide Review NO; Basophils Absolute Auto 100 /uL (0-100); Basophils Percent Auto 0.6 % (0-2); Eosinophils Absolute Auto 0 /uL (0-450); Eosinophils Percent Auto 0.3 % (2-4); Hematocrit 41.9 % (36-46); Hemoglobin 13.7 g/dL (12.0-16.0); Lymphocytes Absolute Auto 1900 /uL (1100-4500); Lymphocytes Percent Auto 13.3 % (25-40); Mean Corpuscular HGB Conc 32.7 % (30-36); Mean Corpuscular Hemoglobin 31.5 PG (26-34); Mean Corpuscular Volume 96.3 fL (80-100); Monocytes Absolute Auto 1700 /uL (0-900); Monocytes Percent Auto 12.1 % (3-14); Neutrophils Absolute Auto 10500 /uL (1500-7000); Neutrophils Percent Auto 73.7 % (50-75); Platelet Count 245 X10^3/uL (150-400); Red Blood Cell Count 4.35 X10^6/uL (4.0-5.2); Red Cell Distribution Width 13.4 % (11.6-14.8); White Blood Cell Count 14.3 X10^3/uL (4.5-11.0)
[2023-08-03 04:28] LABS: Alanine Aminotransferase 18 IU/L (<35); Albumin 3.2 g/dL (3.5-5.0); Albumin Globulin Ratio 1.1 (1.0-2.8); Alkaline Phosphatase 96 U/L (38-126); Aspartate Aminotransferase 29 IU/L (14-36); BUN Creatinine Ratio 24.4 (6-22); Bilirubin Total 0.3 mg/dL (0.2-1.3); Blood Urea Nitrogen 30 mg/dL (7-17); Calcium 8.9 mg/dL (8.4-10.2); Carbon Dioxide 33 mmol/L (22-32); Chloride 105 mmol/L (98-107); Estimated Glomerular Filt Rate 50 mL/min (>60); Globulin 2.9 g/dL (1.7-4.1); Glucose 137 mg/dL (80-110); HEMOLYSIS < 15 (0-50); Magnesium 2.3 mg/dL (1.6-2.3); Potassium 3.6 mmol/L (3.4-5.1); Sodium 140 mmol/L (137-145); Total Protein 6.1 g/dL (6.3-8.2)
[2023-08-03] MEDS: methocarbamoL 500 MG TABLET PO (05:11)
[2023-08-03] MEDS: BENZONATATE 100 MG CAPSULE 200 MG PO ×2 (05:11→19:38)
[2023-08-03] MEDS: BUDESONIDE 0.5 MG/2 ML NEB INH ×2 (05:25→18:14)
[2023-08-03] MEDS: ALBUTEROL 2.5 MG/3 ML NEB (ADULT) INH (05:25)
[2023-08-03] MEDS: FUROSEMIDE 40 MG TABLET PO ×2 (08:10→17:20)
[2023-08-03] MEDS: MULTIVITAMIN 1 TABLET 1 TAB PO (08:10)
[2023-08-03] MEDS: AMIODARONE 200 MG TABLET 100 MG PO (08:10)
[2023-08-03] MEDS: guaiFENesin ER 600 MG TAB PO ×2 (08:11→20:55)
[2023-08-03] MEDS: predniSONE 20 MG TABLET 40 MG PO (08:11)
[2023-08-03] MEDS: METOPROLOL ER 25 MG TABLET PO (08:11)
[2023-08-03] MEDS: APIXABAN 5 MG TABLET PO ×2 (08:11→20:55)
[2023-08-03] MEDS: MEXILETINE 150 MG 150 EACH PO ×2 (08:12→20:56)
[2023-08-03] MEDS: SACUBITRIL VALSARTAN 1 EACH PO ×2 (08:12→20:56)
[2023-08-03] MEDS: HYDROCODONE/ACET 5/325 TABLET 2 TAB PO ×2 (10:43→19:38)
[2023-08-03] MEDS: diazePAM 5 MG TABLET PO ×2 (10:44→23:53)
[2023-08-03] MEDS: INSULIN LISPRO 100 UNIT/ML 3ML VIAL SUBCUT ×3 (12:02→20:58)
[2023-08-03] MEDS: cefTRIAXone 1,000 MG in SODIUM CHLORIDE 0.9% 100 ML 200 MG IV (12:02)
[2023-08-03] MEDS: AZITHROMYCIN 500 MG in DEXTROSE 5% IN WATER 250 ML 250 MG IV (13:50)
--- NOTE | 2023-08-03 15:09 | CM.DPC ---
DCP Cont. Reviewed EMR and team rounds for status updates. Pt is beginning to improve. Per Hospitalist, she will likely need a few more days before she will be ready for d/c. No anticipated home d/c needs identified at this time, may need Home Health, cont. to monitor for final recs.
--- NOTE | 2023-08-03 16:04 | P.PN_ITS ---
Subjective Subjective Interval history: Continues to have subjective dyspnea, severe cough. No fever or chills. Exam Vital Signs (past 8 hours): - 08/03/23 08:05 08/03/23 08:10 08/03/23 08:11 Pulse Rate 69 70 68 Respiratory Rate 29 H 28 H Blood Pressure 112/57 L Pulse Oximetry 90 L 91 Oxygen Delivery Method Oxygen Flow Rate 08/03/23 08:15 08/03/23 08:20 08/03/23 08:25 Pulse Rate 86 119 H 92 H Respiratory Rate 32 H 33 H 31 H Blood Pressure 112/57 L Pulse Oximetry 95 86 L 87 L Oxygen Delivery Method Oxygen Flow Rate 3 08/03/23 08:30 08/03/23 08:35 08/03/23 08:40 Pulse Rate 80 83 74 Respiratory Rate 32 H 29 H 24 Blood Pressure Pulse Oximetry 93 91 90 L Oxygen Delivery Method Oxygen Flow Rate 08/03/23 08:45 08/03/23 08:50 08/03/23 08:55 Pulse Rate 73 72 67 Respiratory Rate 25 H 32 H 40 H Blood Pressure Pulse Oximetry 95 90 L 94 Oxygen Delivery Method Oxygen Flow Rate 08/03/23 09:00 08/03/23 09:05 08/03/23 09:10 Pulse Rate 66 61 62 Respiratory Rate 28 H 27 H 33 H Blood Pressure Pulse Oximetry 91 92 92 Oxygen Delivery Method Oxygen Flow Rate 08/03/23 09:15 08/03/23 09:20 08/03/23 09:25 Pulse Rate 69 69 79 Respiratory Rate 36 H 44 H 30 H Blood Pressure Pulse Oximetry 92 92 87 L Oxygen Delivery Method Oxygen Flow Rate 08/03/23 09:30 08/03/23 09:35 08/03/23 09:40 Pulse Rate 68 61 61 Respiratory Rate 28 H 28 H 37 H Blood Pressure Pulse Oximetry 91 92 91 Oxygen Delivery Method Oxygen Flow Rate 08/03/23 09:45 08/03/23 09:50 08/03/23 09:55 Pulse Rate 62 65 62 Respiratory Rate 30 H 42 H 31 H Blood Pressure Pulse Oximetry 92 91 90 L Oxygen Delivery Method Oxygen Flow Rate 08/03/23 10:00 08/03/23 10:05 08/03/23 10:10 Pulse Rate 63 70 64 Respiratory Rate 32 H 45 H 32 H Blood Pressure Pulse Oximetry 90 L 89 L 90 L Oxygen Delivery Method Oxygen Flow Rate 08/03/23 10:15 08/03/23 10:20 08/03/23 10:25 Pulse Rate 72 70 66 Respiratory Rate 37 H 36 H 36 H Blood Pressure Pulse Oximetry 91 89 L 89 L Oxygen Delivery Method Oxygen Flow Rate 08/03/23 10:30 08/03/23 10:35 08/03/23 10:40 Pulse Rate 67 84 82 Respiratory Rate 42 H 36 H 33 H Blood Pressure Pulse Oximetry 89 L 93 91 Oxygen Delivery Method Oxygen Flow Rate 08/03/23 10:45 08/03/23 10:50 08/03/23 10:55 Pulse Rate 62 66 65 Respiratory Rate 30 H 39 H 36 H Blood Pressure Pulse Oximetry 88 L 90 L 88 L Oxygen Delivery Method Oxygen Flow Rate 08/03/23 11:00 08/03/23 11:05 08/03/23 11:08 Pulse Rate 61 60 62 Respiratory Rate 46 H 38 H 24 Blood Pressure Pulse Oximetry 89 L 84 L 90 L Oxygen Delivery Method Oximask Oxygen Flow Rate 3 08/03/23 11:10 08/03/23 11:15 08/03/23 11:20 Pulse Rate 67 69 69 Respiratory Rate 35 H 45 H 41 H Blood Pressure Pulse Oximetry 86 L 85 L 86 L Oxygen Delivery Method Oxygen Flow Rate 08/03/23 11:25 08/03/23 11:30 08/03/23 11:35 Pulse Rate 68 64 69 Respiratory Rate 37 H 23 35 H Blood Pressure Pulse Oximetry 86 L 85 L 88 L Oxygen Delivery Method Oxygen Flow Rate 08/03/23 11:40 08/03/23 11:45 08/03/23 11:50 Pulse Rate 64 66 68 Respiratory Rate 35 H 37 H 40 H Blood Pressure Pulse Oximetry 86 L 89 L 90 L Oxygen Delivery Method Oxygen Flow Rate 08/03/23 11:55 08/03/23 11:57 08/03/23 11:57 Pulse Rate 109 H 67 Respiratory Rate 36 H 34 H Blood Pressure 121/57 L 121/57 L Pulse Oximetry 91 93 Oxygen Delivery Method Oxygen Flow Rate 3 08/03/23 12:00 08/03/23 12:05 08/03/23 15:02 Pulse Rate 71 64 98 H Respiratory Rate 34 H 31 H 20 Blood Pressure Pulse Oximetry 91 90 L 90 L Oxygen Delivery Method Oximask Oxygen Flow Rate 3 Oxygen Delivery Method Oximask Oxygen Flow Rate 3 Narrative Exam Narrative: GEN: sitting upright, improved wheezing but present, constant coughing, appears uncomfortable still but better. Anxious. HEENT: moist mucous membranes, PERRL NECK: trachea midline, no JVD PULM: inspiratory and expiratory wheezing, with bilateral rhonchi at the bases. CV: irregular, no murmurs MSK: neck muscles very hypertonic in suboccipital region extending to traps ABD: soft, nontender, nondistended, no organomegaly, normal bowel sounds EXT: warm and well perfused with trace peripheral edema NEURO: awake, alert, oriented, no focal deficits Objective Labs 08/03/23 04:00 08/03/23 04:00 Labs: Laboratory Results - last 24 hr 08/03/23 04:00 WBC 14.3 H RBC 4.35 Hgb 13.7 Hct 41.9 MCV 96.3 MCH 31.5 MCHC 32.7 RDW 13.4 Plt Count 245 Neut % (Auto) 73.7 Lymph % (Auto) 13.3 L [place] % (Auto) 12.1 Eos % (Auto) 0.3 L Baso % (Auto) 0.6 Neut # (Auto) 25371 H Lymph # (Auto) 1900 [place] # (Auto) 1700 H Eos # (Auto) 0 Baso # (Auto) 100 Sodium 140 Potassium 3.6 Chloride 105 Carbon Dioxide 33 H BUN 30 H Creatinine 1.23 H Estimated GFR 50 L BUN/Creatinine Ratio 24.4 H Glucose 137 H Calcium 8.9 Magnesium 2.3 Total Bilirubin 0.3 AST 29 ALT 18 Alkaline Phosphatase 96 Total Protein 6.1 L Albumin 3.2 L Globulin 2.9 Albumin/Globulin Ratio 1.1 PFSH Medical History CAD (coronary artery disease) Congestive heart failure COPD (chronic obstructive pulmonary disease) Surgical History AICD (automatic cardioverter/defibrillator) present H/O heart artery stent Social History household members: none lives independently: Yes Smoking Status: Current every day smoker alcohol intake: never Assessment & Plan Assessment & Plan narrative: 1. COPD with exacerbation ?- exacerbation probably due to rhinovirus with possible superimposed bacterial PNA ?- RT eval and treat, start nebulizer therapies and albuterol as needed ?- continued prednisone 40 mg daily but with minimal improvement changed to IV solumedrol BID 60 mg. 2. Rhinovirus infection with possible superimposed bacterial pneumonia and sepsis with acute on chronic respiratory failure with hypoxia and hypercapnea, and hypotension ?- Resp PCR positive for rhinovirus ?- WBC elevated, may be indicative of a bacterial pneumonia. - SOFA score of 4 with hypotension, PF ratio based on arterial blood gas is 218 but does have some chronic hypoxia due to COPD. - continue ceftriaxone and azithromycin for presumed bacterial PNA. - monitor blood pressure, kept in ICU in case shock but stabilized quickly. Now regular floor care. 3. chronic systolic heart failure, acute likely ruled out or overdiuresed. ?- Last TTE 08/27 with EF 25-30%, new echo will not currently exchange administrator ?- resume home furosemide as patient was over diuresed last admission with a few doses of IV furosemide. ?- will hold home entresto for now with hypotension 4. Acute on chronic hypoxemic respiratory failure, acute now resolved ?- She is typically on 3L at home. At baseline O2 use but not symptom lane. ?- CTA negative for PE. Did show tree and bud pattern consistent with possible pneumonia. - consider diuresis as well if no continued improvement with above measures as noted in problem 1. 5. Coronary artery disease with prior NH - Troponin was unremarkable. 6. History of cardiac arrest, status post pacemaker/AICD placement 7. Atrial fibrillation on chronic anticoagulation with Eliquis ?- continue eliquis 8. Diabetes mellitus type 2 -continue high dose sliding scale. -not on home lantus, previous needed lantus with steroids will monitor. 9. Class 3 obesity with BMI of 40 - Her obesity puts her at significant risk of morbidity and mortality.? Would greatly benefit from weight reduction though she has lost weight recently. 10. Chronic pain syndrome - continue home medications 12. Hypertension - continue home medications 13. Hyperlipidemia - Continue home medications Code: Full surrogate is patient's daughter and granddaughter. DVT prophylaxis: Apixaban Dispo: floor care, improved BP. Likely discharge home, maybe in 2-3 days based on current symptoms.
[2023-08-03] MEDS: SODIUM CHLORIDE 0.9% FLUSH 10 ML IV ×2 (20:56→23:53)
[2023-08-03] MEDS: MONTELUKAST 10 MG TABLET PO (20:57)
[2023-08-04] VITALS (94 sets, daily range): BP systolic 104–154; BP diastolic 63–72; PULSE 60–87; RESP 18–58; TEMP 35.9–36.6; O2SAT 85–96
--- NOTE | 2023-08-04 00:01 | PC.NURSE ---
Patient is alert and oriented. Breath sounds coarse and with expiratory rhonchi throughout. SOB both with/without exertion. Sitting upright in bed to enable breathing and noted to use purse-lip breathing. Tachypneic with RR of 30. Moist sounding persistent cough which she states is productive of scant amounts of green sputum but none noted by nursing. On oximask at 3L/min with sat of 91%; on continuous oximetry. HRR with telemetry reading of a-paced and occasional PVC's. Denied nausea. Has not had documented BM since 07/29 but does report spurts of stool incontinently when she coughs. Voiding frequently and receives SBA to BS as unable to tolerate being up to the bathroom. Is able to move herself in bed. Is on droplet precautions for rhinovirus and added contact precautions as sputum is growing gm + cocci. Complains of 7-8/10 chronic pain in neck and back and acute rib/chest pain from coughing; was medicated earlier with Vicodin and now given Diazepam. Fall risk score is moderate but calls appropriately for assist so bed alarm not activated at this time.
[2023-08-04] MEDS: methocarbamoL 500 MG TABLET PO (01:39)
[2023-08-04] MEDS: HYDROCODONE/ACET 5/325 TABLET 2 TAB PO ×4 (01:39→21:22)
[2023-08-04] MEDS: ALBUTEROL 2.5 MG/3 ML NEB (ADULT) INH (03:26)
[2023-08-04] MEDS: ALBUTEROL/IPRATROPIUM 3 ML AMPUL INH ×5 (03:36→23:05)
[2023-08-04] MEDS: SODIUM CHLORIDE 0.9% FLUSH 10 ML IV ×3 (05:33→21:18)
[2023-08-04 05:42] LABS: Hematocrit 45.4 % (36-46); Hemoglobin 14.9 g/dL (12.0-16.0); Mean Corpuscular HGB Conc 32.7 % (30-36); Mean Corpuscular Hemoglobin 31.6 PG (26-34); Mean Corpuscular Volume 96.6 fL (80-100); Platelet Count 245 X10^3/uL (150-400); Red Blood Cell Count 4.69 X10^6/uL (4.0-5.2); Red Cell Distribution Width 13.5 % (11.6-14.8)
[2023-08-04 05:49] LABS: Add Manual Diff / Slide Review YES
[2023-08-04 05:52] LABS: Alanine Aminotransferase 25 IU/L (<35); Albumin 3.6 g/dL (3.5-5.0); Albumin Globulin Ratio 1.2 (1.0-2.8); Alkaline Phosphatase 118 U/L (38-126); Aspartate Aminotransferase 37 IU/L (14-36); BUN Creatinine Ratio 30.9 (6-22); Bilirubin Total 0.4 mg/dL (0.2-1.3); Blood Urea Nitrogen 29 mg/dL (7-17); Calcium 9.4 mg/dL (8.4-10.2); Carbon Dioxide 32 mmol/L (22-32); Chloride 102 mmol/L (98-107); Estimated Glomerular Filt Rate > 60 mL/min (>60); Globulin 3.1 g/dL (1.7-4.1); Glucose 287 mg/dL (80-110); HEMOLYSIS < 15 (0-50); Magnesium 2.5 mg/dL (1.6-2.3); Sodium 138 mmol/L (137-145); Total Protein 6.7 g/dL (6.3-8.2)
[2023-08-04 06:14] LABS: Neutrophils Absolute Manual 11830 /uL (3000-5900); Total Cells Counted 100
[2023-08-04 06:15] LABS: RBC Morphology Normal Morphology
--- NOTE | 2023-08-04 07:52 | P.PN_ITS ---
Subjective Subjective Interval history: She is seen in her room here today to follow-up her severe COPD exacerbation. Her blood sugars have risen considerably with the additional IV Solu-Medrol. Lantus will be resumed for that. She remains on ceftriaxone for possible bacterial pneumonia. Her work of breathing continues to be quite impressive. She is on a non-rebreather mask for oxygen. She tells me that she lives on [address] in a travel trailer with her ex-. 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 Her primary care physician is Dr. Tang bentley in [place]. Exam Vital Signs (past 8 hours): - 08/04/23 00:00 08/04/23 04:00 Temperature 97.0 F L 97.0 F L Pulse Rate 61 74 Respiratory Rate 30 H 30 H Blood Pressure 146/71 H 142/63 H Pulse Oximetry 92 93 Oxygen Flow Rate 3 3 Oxygen Delivery Method Oximask Oxygen Flow Rate 3 Narrative Exam Narrative: Sitting upright in bed for best breathing while conversing. No apparent distress. Heart is regular rate and rhythm no murmur. Heavy wheezing bilaterally Extremities have no ankle Edema. Objective Labs 08/04/23 05:33 08/04/23 05:33 Labs: Laboratory Results - last 24 hr 08/04/23 05:33 WBC 13.0 H RBC 4.69 Hgb 14.9 Hct 45.4 MCV 96.6 MCH 31.6 MCHC 32.7 RDW 13.5 Plt Count 245 Neut % (Auto) Not Reportable Lymph % (Auto) Not Reportable Norman % (Auto) Not Reportable Eos % (Auto) Not Reportable Baso % (Auto) Not Reportable Lymph # (Auto) Not Reportable Norman # (Auto) Not Reportable Baso # (Auto) Not Reportable Total Counted 100 Seg Neutrophils % 89.0 H Band Neutrophils % 2.0 L Lymphocytes % (Manual) 7.0 L Monocytes % (Manual) 2.0 Neutrophils # (Manual) 84376 H RBC Morphology Normal morphology Sodium 138 Potassium 4.0 Chloride 102 Carbon Dioxide 32 BUN 29 H Creatinine 0.94 Estimated GFR > 60 BUN/Creatinine Ratio 30.9 H Glucose 287 H D Calcium 9.4 Magnesium 2.5 H Total Bilirubin 0.4 AST 37 H ALT 25 Alkaline Phosphatase 118 Total Protein 6.7 Albumin 3.6 Globulin 3.1 Albumin/Globulin Ratio 1.2 [facility] Medical History CAD (coronary artery disease) Congestive heart failure COPD (chronic obstructive pulmonary disease) Surgical History AICD (automatic cardioverter/defibrillator) present H/O heart artery stent Social History household members: spouse and none lives independently: Yes Smoking Status: Current every day smoker alcohol intake: never Assessment & Plan Assessment & Plan narrative: 1. COPD with exacerbation ?- exacerbation probably due to rhinovirus with possible superimposed bacterial PNA ?- RT eval and treat, start nebulizer therapies and albuterol as needed ?- after initially using prednisone 40 mg daily with minimal improvement changed to IV solumedrol BID 60 mg. 2. Rhinovirus infection with possible superimposed bacterial pneumonia and sepsis with acute on chronic respiratory failure with hypoxia and hypercapnea, and hypotension ?- Resp PCR positive for rhinovirus ?- WBC elevated, may be indicative of a bacterial pneumonia. - SOFA score of 4 with hypotension, PF ratio based on arterial blood gas is 218 but does have some chronic hypoxia due to COPD. - continue ceftriaxone and azithromycin for presumed bacterial PNA. - monitor blood pressure, kept in ICU in case shock but stabilized quickly. Now regular floor care. 3. chronic systolic heart failure, acute likely ruled out or overdiuresed. ?- Last TTE 08/27 with EF 25-30%, new echo will not currently post exchange manager ?- resume home furosemide as patient was over diuresed last admission with a few doses of IV furosemide. ?- will hold home entresto for now with hypotension 4. Acute on chronic hypoxemic respiratory failure, acute now resolved ?- She is typically on 3L at home. At baseline O2 use but not symptom lane. ?- CTA negative for PE. Did show tree and bud pattern consistent with possible pneumonia. - consider diuresis as well if no continued improvement with above measures as noted in problem 1. 5. Coronary artery disease with prior [place] - Troponin was unremarkable. 6. History of cardiac arrest, status post pacemaker/AICD placement 7. Atrial fibrillation on chronic anticoagulation with Eliquis ?- continue eliquis 8. Diabetes mellitus type 2 -continue high dose sliding scale. -Begun on Lantus on 08/03 - 25 units BID. This was the dose that she needed the last time she was on Solumedrol. 9. Class 3 obesity with BMI of 40 - Her obesity puts her at significant risk of morbidity and mortality.? Would greatly benefit from weight reduction though she has lost weight recently. 10. Chronic pain syndrome - continue home medications 12. Hypertension - continue home medications 13. Hyperlipidemia - Continue home medications Code: Full surrogate is patient's daughter and granddaughter. DVT prophylaxis: Apixaban Dispo: floor care, improved BP. Likely discharge home, maybe in 2-3 days based on current symptoms.
[2023-08-04] MEDS: MEXILETINE 150 MG 150 EACH PO ×2 (08:32→21:18)
[2023-08-04] MEDS: SACUBITRIL VALSARTAN 1 EACH PO ×2 (08:32→21:17)
[2023-08-04] MEDS: APIXABAN 5 MG TABLET PO ×2 (08:33→21:16)
[2023-08-04] MEDS: METOPROLOL ER 25 MG TABLET PO (08:33)
[2023-08-04] MEDS: AMIODARONE 200 MG TABLET 100 MG PO (08:33)
[2023-08-04] MEDS: MULTIVITAMIN 1 TABLET 1 TAB PO (08:33)
[2023-08-04] MEDS: guaiFENesin ER 600 MG TAB PO ×2 (08:33→21:16)
[2023-08-04] MEDS: diazePAM 5 MG TABLET PO (08:33)
[2023-08-04] MEDS: INSULIN LISPRO 100 UNIT/ML 3ML VIAL SUBCUT ×4 (08:34→21:17)
[2023-08-04] MEDS: FUROSEMIDE 40 MG TABLET PO ×2 (08:38→17:09)
[2023-08-04] MEDS: BUDESONIDE 0.5 MG/2 ML NEB INH ×2 (09:44→18:36)
--- NOTE | 2023-08-04 11:10 | PT.IIE ---
Current Diagnoses Chronic obstructive pulmonary disease with (acute) exacerbation (08/01/23) Surgical History (Last Reviewed 08/01/23 @ 16:30 by Armin Echols DO) AICD (automatic cardioverter/defibrillator) present H/O heart artery stent Medical History (Last Reviewed 08/01/23 @ 16:30 by Armin Echols DO) CAD (coronary artery disease) Congestive heart failure COPD (chronic obstructive pulmonary disease) Physical Therapy Inpatient Evaluation/Re-Eval M1 PT/OT-IP Prior Functional Status Start: 08/04/23 13:57 Freq: NEEDED Status: Active Protocol: Document 08/04/23 11:10 AB (Rec: 08/04/23 14:09 AB [id number]) Medical Review Prior Functional Status Medical History Reviewed Yes Communication able to make needs known Mobility and Gait pt stated that she was modified independent with all mobilities and ambulation using FWW for outdoor mobility but uses a SPC for indoor mobility Prior Functional Level (Other details) uses home O2 @ 3L/min Social History Household Members spouse,none Living Arrangements RV Number of Floors (Floors) One Floor Number of Stairs To Enter/Railing? 5 steps R rail ascending to enter 3 steps to bathroom without rails but has jay on each side to hold on to has 1 step to living room Home Environment Standard Height Toilet,Walk in Shower Home Equipment Front Wheel Walker,Power Wheelchair/Scooter Additional Social History Comment stated that spouse will not be able to assist her M2 PT-IP Current Condition Start: 08/04/23 13:57 Freq: NEEDED Status: Active Protocol: Document 08/04/23 11:10 AB (Rec: 08/04/23 14:09 AB [id number]) Physical Therapy Current Condition Current Condition Evaluation Date 08/04/23 Treatment Diagnosis PNA; COPD exacerbation; difficulty in walking Onset Date 08/01/23 M3 PT-IP Subjective Start: 08/04/23 13:57 Freq: NEEDED Status: Active Protocol: Document 08/04/23 11:10 AB (Rec: 08/04/23 14:09 AB [id number]) Subjective Physical Therapy Visit Type Type Initial Evaluation Visit Start Time 11:10 Visit Stop Time 11:45 Number of NETSUITE DEVELOPER Visits 0 Physical Therapy Visit Comments Patient Comments agreeable to do PT M4 PT-IP Mobility and Gait Start: 08/04/23 13:57 Freq: NEEDED Status: Active Protocol: Document 08/04/23 11:10 AB (Rec: 08/04/23 14:09 AB [id number]) PT-Bed Mobility Assessment Supine to Sit Supine to Sit Standby Assistance,Head of Bed Elevated,Bedrails Sit to Supine Sit to Supine Standby Assistance,Head of Bed Elevated,Bedrails PT-Transfer Assessment Sit to and From Stand Sit to and from Stand Standby Assistance Equipment Transfer Assistive Device Gait Belt,4 Wheeled Walker Orthotic/Prosthetic Devices or Brace: No Comments Mobility Comments pt supine in bed and agreeable to do PT. obtained PLOF and home set up from pt. O2 sat with 3L/min O2: 96%. pt completed supine to sit SBa with HOB elevated. completed sit to stand SBA and ambulated in room u sing 4WW SBA. pt initially stated that she has 4WW at home thus, 4WW was used during PT session but at end of PT session, pt stated that she has a FWW. pt requested to go back to bed . pt climbs on to the bed bring her knee up to bed first and rolling to her back and completed SBA. positioned pt in bed. call light and table placed within reach. c/o SOB after mobility but O2 sat at 95%. cued for PLB. Gait Assessment Gait Gait Assistance Required: Standby Assistance Distance (Feet) 30 Able to Maintain Weight Bearing Status Yes During Gait Assistive Devices Assistive Device Gait Belt,4 Wheeled Walker Orthotic/Prosthetic Devices or Brace: No Gait Deviations General Gait Pattern Decreased Stride Length, Decreased Feet Clearance,Step- to Gait Factors Limiting Gait Function Factors Limiting Gait Function Decreased Activity Tolerance, Decreased Strength,Limited Range of Motion,Poor Balance, Poor Safety Awareness, Respiratory Distress PT-Balance Assessment Sitting Balance and Reactions Static Sitting Balance Ability Good Dynamic Sitting Balance Ability Good Standing Balance and Reactions Static Standing Balance Ability Good Dynamic Standing Balance Ability Fair Device Used 4WW M5 PT-IP Objective Assessments Start: 08/04/23 13:57 Freq: NEEDED Status: Active Protocol: Document 08/04/23 11:10 AB (Rec: 08/04/23 14:09 AB [id number]) Orientation Orientation/Cognition Level of Alertness Alert Orientation Name,Place,Situation Safety Awareness Decreased Safety Awareness Memory Description Short Term Impaired,Detention Impaired Gross Range of Motion Lower Extremity ROM Assessment Within Functional Limits Strength Lower Extremity Strength Assessment Within Functional Limits Muscle Tone Muscle Tone WNL Yes M6 PT-IP Treatment Start: 08/04/23 13:57 Freq: NEEDED Status: Active Protocol: Document 08/04/23 11:10 AB (Rec: 08/04/23 14:09 AB [id number]) Physical Therapy Treatment Education Education Provided Safety M7 PT-IP Assessment and Plan Start: 08/04/23 13:57 Freq: NEEDED Status: Active Protocol: Document 08/04/23 11:10 AB (Rec: 08/04/23 14:09 AB [id number]) PT Summary Assessment and Plan Potential Rehabilitation Potential Fair Status of Condition at Evaluation Evolving Summary Impairments Pain,ROM,Strength,Balance, Coordination,Sensation,Tone, Cognition,Bed Mobility, Transfers,Gait,Activity Tolerance Assessment Summary pt is a 58 y/o F who was admitted for PNA and COPD exacerbation. pt requiring SBA with mobility but with decrease activity tolerance affecting independent. pt plans to go back home and will benefit from HHPT. will continue to assess progress. Goals Bed Mobility Goal Independent Transfer Goal Independent,Front Wheeled Walker Gait Goal Independent,Front Wheel Walker Gait Distance 200 Other Goals improve transfers and ambulation using SPC/LRAD 250 ft SBA up/down 5 steps R rail ascending SBA up/down 3 steps using SPC SBA Days to Meet Goals 10 Frequency of Treatment Frequency Of Treatment Once a Day Treatment Plan Physical Therapy Treatment Plan Bed Mobility Training,Transfer Training,Gait Training, Therapeutic Exercise,Balance Retraining,Discharge Planning, Hot or Cold Pack,Neuromuscular Re-ed,Coordination Retraining ,Manual Therapy Precautions Other Precautions contact precautions (sputum); droplet precautions ( Rhinovirus); Recommendations To Nursing Amount of Assist Needed 1 Person Assist Discharge Recommendations PT Discharge Recommendations Home with Assistance,Home Health Transportation Needs at Discharge Private Vehicle
[2023-08-04] MEDS: cefTRIAXone 1,000 MG in SODIUM CHLORIDE 0.9% 100 ML 200 MG IV (12:13)
[2023-08-04] MEDS: CODEINE/GUAIFENESIN LIQUID 5ML UDC 10 ML PO ×2 (12:13→21:21)
[2023-08-04] MEDS: INSULIN GLARGINE 100 UNIT/ML 3ML PEN 25 UNIT SUBCUT ×2 (12:14→21:19)
--- NOTE | 2023-08-04 14:29 | CM.DPC ---
DCP Cont: Per MD in [facility] this AM, pt making a little progress but remains on oximask 3LO2 and per RN pt SOB with exertion or just at rest but has been SBA for ambulation in the room. No PT orders needed at this time. F2F completed for continuing [facility] at discharge as they need new orders due to new admission dx. Plan: SW to follow closely for plan of discharge home with spouse and continuing [facility] when medically stable. SW to fax new F2F, HH orders, and d/c summ to [facility] at discharge. GEORGE Mcclain
[2023-08-04] MEDS: BENZONATATE 100 MG CAPSULE 200 MG PO (14:49)
[2023-08-04] MEDS: MONTELUKAST 10 MG TABLET PO (21:16)
[2023-08-04] MEDS: DOCUSATE 100 MG CAPSULE PO (21:16)
[2023-08-04] MEDS: SENNOSIDES 8.6 MG TABLET 17.2 MG PO (21:18)
[2023-08-05] VITALS (13 sets, daily range): BP systolic 127–148; BP diastolic 60–71; PULSE 57–70; RESP 20–22; TEMP 35.8–36.4; O2SAT 92–97
[2023-08-05] MEDS: SODIUM CHLORIDE 0.9% FLUSH 10 ML IV ×3 (00:05→20:52)
[2023-08-05] MEDS: ALBUTEROL 2.5 MG/3 ML NEB (ADULT) INH (01:30)
[2023-08-05] MEDS: HYDROCODONE/ACET 5/325 TABLET 2 TAB PO ×3 (03:42→16:35)
[2023-08-05] MEDS: ALBUTEROL/IPRATROPIUM 3 ML AMPUL INH ×6 (03:43→23:30)
--- NOTE | 2023-08-05 04:05 | PC.NURSE ---
Patient is alert and oriented. Breath sounds improved but still has expiratory rhonchi throughout and some inspiratory wheezes intermittently. Continues on oxygen at 3L/min per oximask as per home regimen. Still SOB but improved from last noc and able to speak in complete sentences. Still with intermittent cough but not as frequently but has specks of blood in clear sputum. States she is unable to bring anything up from deep in lungs but then contradicts and states she is bringing up green/yellow sputum. RR at time of assessment was 22. HRR and no longer on telemetry. Denied nausea. BT present and had BM on previous shift. Is voiding on toilet now and is ambulating to bathroom with walker independently and appears steady on feet. Complained of chronic pain in neck and back, and chest and rib pain related to coughing and has been medicated x2 with Vicodin but pain never gets better than 7/10. Fall risk score is high but declines use of bed alarm and verbalizes risks and need to call for assist if too weak, lightheaded or dizzy when getting out of bed. Remains on contact/droplet precautions.
--- NOTE | 2023-08-05 07:28 | P.PN_ITS ---
Subjective Subjective Interval history: She is complaining of not sleeping well, largely due to the steroids. She is currently on Lantus 25 units b.i.d. with blood sugars in the high 100s. She is asking for Tums for heartburn. She remains hypoxic and bronchospastic. Exam Vital Signs (past 8 hours): - 08/05/23 00:00 08/05/23 00:30 08/05/23 01:30 Temperature 96.7 F L Pulse Rate 70 Respiratory Rate 20 Blood Pressure 127/60 Pulse Oximetry 96 93 Oxygen Delivery Method Oximask Oximask Oxygen Flow Rate 3 3 08/05/23 03:44 08/05/23 04:00 Temperature 96.4 F L Pulse Rate 70 Respiratory Rate 21 Blood Pressure 142/71 H Pulse Oximetry 93 92 Oxygen Delivery Method Oximask Oxygen Flow Rate 3 3 Oxygen Delivery Method Oximask Oxygen Flow Rate 3 Narrative Exam Narrative: Alert and oriented x3. Appears tired out, no apparent distress. Heart is regular rate and rhythm without murmur Lungs have left-sided wheezes improved since yesterday. Extremities have no ankle edema. Objective Labs 08/04/23 05:33 08/04/23 05:33 [facility] Medical History CAD (coronary artery disease) Congestive heart failure COPD (chronic obstructive pulmonary disease) Surgical History AICD (automatic cardioverter/defibrillator) present H/O heart artery stent Social History household members: spouse and none lives independently: Yes Smoking Status: Current every day smoker alcohol intake: never Assessment & Plan Assessment & Plan narrative: 1. COPD with exacerbation ?- exacerbation probably due to rhinovirus with possible superimposed bacterial PNA ?- RT eval and treat, start nebulizer therapies and albuterol as needed ?- after initially using prednisone 40 mg daily with minimal improvement changed to IV solumedrol BID 60 mg. 2. Rhinovirus infection with possible superimposed bacterial pneumonia and sepsis with acute on chronic respiratory failure with hypoxia and hypercapnea, and hypotension ?- Resp PCR positive for rhinovirus ?- WBC elevated, may be indicative of a bacterial pneumonia. - SOFA score of 4 with hypotension, PF ratio based on arterial blood gas is 218 but does have some chronic hypoxia due to COPD. - continue ceftriaxone and azithromycin for presumed bacterial PNA. - monitor blood pressure, kept in ICU in case shock but stabilized quickly. Now regular floor care. 3. chronic systolic heart failure, acute likely ruled out or overdiuresed. ?- Last TTE 08/27 with EF 25-30%, new echo will not currently private branch exchange repairer ?- resume home furosemide as patient was over diuresed last admission with a few doses of IV furosemide. ?- will hold home entresto for now with hypotension 4. Acute on chronic hypoxemic respiratory failure, acute now resolved ?- She is typically on 3L at home. At baseline O2 use but not symptom lane. ?- CTA negative for PE. Did show tree and bud pattern consistent with possible pneumonia. - consider diuresis as well if no continued improvement with above measures as noted in problem 1. 5. Coronary artery disease with prior [place] - Troponin was unremarkable. 6. History of cardiac arrest, status post pacemaker/AICD placement 7. Atrial fibrillation on chronic anticoagulation with Eliquis ?- continue eliquis 8. Diabetes mellitus type 2 -continue high dose sliding scale. -Begun on Lantus on 08/03 - 25 units BID. This was the dose that she needed the last time she was on Solumedrol. 9. Class 3 obesity with BMI of 40 - Her obesity puts her at significant risk of morbidity and mortality.? Would greatly benefit from weight reduction though she has lost weight recently. 10. Chronic pain syndrome - continue home medications 12. Hypertension - continue home medications 13. Hyperlipidemia - Continue home medications Code: Full surrogate is patient's daughter and granddaughter. DVT prophylaxis: Apixaban Dispo: floor care, improved BP. Likely discharge home, maybe in 2-3 days based on current symptoms.
[2023-08-05] MEDS: INSULIN LISPRO 100 UNIT/ML 3ML VIAL SUBCUT ×4 (08:00→20:58)
[2023-08-05] MEDS: INSULIN GLARGINE 100 UNIT/ML 3ML PEN 25 UNIT SUBCUT ×2 (08:27→20:57)
[2023-08-05] MEDS: DOCUSATE 100 MG CAPSULE PO ×2 (08:28→20:48)
[2023-08-05] MEDS: MULTIVITAMIN 1 TABLET 1 TAB PO (08:28)
[2023-08-05] MEDS: APIXABAN 5 MG TABLET PO ×2 (08:28→20:48)
[2023-08-05] MEDS: guaiFENesin ER 600 MG TAB PO ×2 (08:28→20:48)
[2023-08-05] MEDS: AMIODARONE 200 MG TABLET 100 MG PO (08:29)
[2023-08-05] MEDS: METOPROLOL ER 25 MG TABLET PO (08:30)
[2023-08-05] MEDS: SENNOSIDES 8.6 MG TABLET 17.2 MG PO ×2 (08:32→20:51)
[2023-08-05] MEDS: FUROSEMIDE 40 MG TABLET PO ×2 (08:35→16:35)
[2023-08-05] MEDS: MEXILETINE 150 MG 150 EACH PO ×2 (08:35→20:56)
[2023-08-05] MEDS: SACUBITRIL VALSARTAN 1 EACH PO ×2 (08:35→20:56)
[2023-08-05] MEDS: BUDESONIDE 0.5 MG/2 ML NEB INH ×2 (08:35→19:34)
[2023-08-05] MEDS: CALCIUM CARBONATE 500 MG TAB 1000 MG PO (09:15)
[2023-08-05] MEDS: diazePAM 5 MG TABLET PO ×2 (10:47→20:50)
[2023-08-05] MEDS: cefTRIAXone 1,000 MG in SODIUM CHLORIDE 0.9% 100 ML 200 MG IV (11:58)
--- NOTE | 2023-08-05 15:08 | CM.DPC ---
DCP Cont. Reviewed EMR and team rounds for status updates. Per Hospitalist, pt will need 3-more days IV steroids. She is quite emotional today, has not been able to sleep due to the steroids, and was feeling depressed. She requested OP mental health therapist referral info, which this SCIENTIST ENGINEER did provide for her. Will continue to monitor for further d/c and support needs.
--- NOTE | 2023-08-05 16:08 | PT.IPTN ---
Current Diagnoses Chronic obstructive pulmonary disease with (acute) exacerbation (08/01/23) Physical Therapy Treatment Note M2 PT-IP Current Condition Start: 08/04/23 13:57 Freq: NEEDED Status: Active Protocol: Document 08/04/23 11:10 AB (Rec: 08/04/23 14:09 AB [id number]) Physical Therapy Current Condition Current Condition Evaluation Date 08/04/23 Treatment Diagnosis PNA; COPD exacerbation; difficulty in walking Onset Date 08/01/23 M3 PT-IP Subjective Start: 08/04/23 13:57 Freq: NEEDED Status: Active Protocol: Document 08/05/23 15:15 MB (Rec: 08/05/23 16:08 MB [id number]) Subjective Physical Therapy Visit Type Type Treatment Note Visit Start Time 15:15 Visit Stop Time 16:00 Number of BINDING PRINTER Visits 0 Physical Therapy Visit Comments Patient Comments Pt is agreeable to PT. M4 PT-IP Mobility and Gait Start: 08/04/23 13:57 Freq: NEEDED Status: Active Protocol: Document 08/05/23 15:15 MB (Rec: 08/05/23 16:08 MB [id number]) PT-Bed Mobility Assessment Supine to Sit Supine to Sit Standby Assistance,1 Person Assistance,Head of Bed Elevated,Bedrails Sit to Supine Sit to Supine Standby Assistance,1 Person Assistance,Head of Bed Elevated,Bedrails PT-Transfer Assessment Sit to and From Stand Sit to and from Stand Standby Assistance,1 Person Assistance,Use of Upper Extremities Equipment Transfer Assistive Device Gait Belt,Front Wheeled Walker Comments Mobility Comments Pt on 3L O2 with face mask. O2 sats remain in the low 90s throughout conversation and when re-checked after gait. Pt with 3/4 Dyspnea Scale. Gait Assessment Gait Gait Assistance Required: Standby Assistance,1 Person Assist Distance (Feet) 50 Assistive Devices Assistive Device Gait Belt,Front Wheeled Walker Gait Deviations General Gait Pattern Decreased Stride Length, Decreased Feet Clearance, Flexed Trunk,Wide Based Gait Factors Limiting Gait Function Factors Limiting Gait Function Decreased Activity Tolerance, Decreased Strength,Poor Balance,Poor Safety Awareness, Respiratory Distress PT-Balance Assessment Sitting Balance and Reactions Static Sitting Balance Ability Good Dynamic Sitting Balance Ability Good Standing Balance and Reactions Static Standing Balance Ability Good Dynamic Standing Balance Ability Fair Device Used 2WW M5 PT-IP Objective Assessments Start: 08/04/23 13:57 Freq: NEEDED Status: Active Protocol: Document 08/04/23 11:10 AB (Rec: 08/04/23 14:09 AB [id number]) Orientation Orientation/Cognition Level of Alertness Alert Orientation Name,Place,Situation Safety Awareness Decreased Safety Awareness Memory Description Short Term Impaired,Rail Layer Impaired Gross Range of Motion Lower Extremity ROM Assessment Within Functional Limits Strength Lower Extremity Strength Assessment Within Functional Limits Muscle Tone Muscle Tone WNL Yes M6 PT-IP Treatment Start: 08/04/23 13:57 Freq: NEEDED Status: Active Protocol: Document 08/04/23 11:10 AB (Rec: 08/04/23 14:09 AB [id number]) Physical Therapy Treatment Education Education Provided Safety M7 PT-IP Assessment and Plan Start: 08/04/23 13:57 Freq: NEEDED Status: Active Protocol: Document 08/05/23 15:15 MB (Rec: 08/05/23 16:08 MB [id number]) PT Summary Assessment and Plan Potential Rehabilitation Potential Fair Status of Condition at Evaluation Evolving Summary Impairments Pain,ROM,Strength,Balance, Cognition,Transfers,Gait, Activity Tolerance Assessment Summary Pt has JAUREGUI and O2 sats remain in the low 90s when checked as she wears 3L O2 with face mask. Pt reports 3/4 Dyspnea Scale with exertion. Try steps as able next treatment date. Goals Bed Mobility Goal Independent Transfer Goal Independent,Front Wheeled Walker Gait Goal Independent,Front Wheel Walker Gait Distance 200 Other Goals improve transfers and ambulation using SPC/LRAD 250 ft SBA up/down 5 steps R rail ascending SBA up/down 3 steps using SPC SBA Days to Meet Goals 10 Frequency of Treatment Frequency Of Treatment Once a Day Treatment Plan Physical Therapy Treatment Plan Bed Mobility Training,Transfer Training,Gait Training, Therapeutic Exercise,Balance Retraining,Discharge Planning, Hot or Cold Pack,Neuromuscular Re-ed,Coordination Retraining ,Manual Therapy Precautions Other Precautions contact precautions (sputum); droplet precautions ( Rhinovirus); Recommendations To Nursing Amount of Assist Needed 1 Person Assist Discharge Recommendations PT Discharge Recommendations Home with Assistance,Home Health Transportation Needs at Discharge Private Vehicle
[2023-08-05] MEDS: MONTELUKAST 10 MG TABLET PO (20:49)
[2023-08-05] MEDS: MELATONIN 3 MG TABLET 6 MG PO (20:49)
[2023-08-05] MEDS: CODEINE/GUAIFENESIN LIQUID 5ML UDC 10 ML PO (20:50)
[2023-08-05] MEDS: methocarbamoL 500 MG TABLET PO (20:50)
[2023-08-06] VITALS (11 sets, daily range): BP systolic 115–154; BP diastolic 57–82; PULSE 59–80; RESP 16–24; TEMP 35.6–36.7; O2SAT 90–97
[2023-08-06] MEDS: BUDESONIDE 0.5 MG/2 ML NEB INH ×2 (07:30→20:23)
[2023-08-06] MEDS: ALBUTEROL/IPRATROPIUM 3 ML AMPUL INH ×4 (07:30→18:14)
[2023-08-06] MEDS: CODEINE/GUAIFENESIN LIQUID 5ML UDC 10 ML PO ×2 (08:18→17:04)
[2023-08-06] MEDS: INSULIN GLARGINE 100 UNIT/ML 3ML PEN 25 UNIT SUBCUT ×2 (08:18→20:42)
[2023-08-06] MEDS: AMIODARONE 200 MG TABLET 100 MG PO (08:19)
[2023-08-06] MEDS: guaiFENesin ER 600 MG TAB PO ×2 (08:19→20:26)
[2023-08-06] MEDS: METOPROLOL ER 25 MG TABLET PO (08:19)
[2023-08-06] MEDS: MULTIVITAMIN 1 TABLET 1 TAB PO (08:19)
[2023-08-06] MEDS: FUROSEMIDE 40 MG TABLET PO ×2 (08:19→17:03)
[2023-08-06] MEDS: HYDROCODONE/ACET 5/325 TABLET 2 TAB PO ×3 (08:20→22:06)
[2023-08-06] MEDS: APIXABAN 5 MG TABLET PO ×2 (08:20→20:26)
[2023-08-06] MEDS: DOCUSATE 100 MG CAPSULE PO ×2 (08:20→20:26)
[2023-08-06] MEDS: INSULIN LISPRO 100 UNIT/ML 3ML VIAL SUBCUT ×4 (08:21→20:41)
[2023-08-06] MEDS: SACUBITRIL VALSARTAN 1 EACH PO ×2 (08:23→20:26)
[2023-08-06] MEDS: SENNOSIDES 8.6 MG TABLET 17.2 MG PO ×2 (08:23→20:26)
[2023-08-06] MEDS: MEXILETINE 150 MG 150 EACH PO ×2 (08:23→20:26)
[2023-08-06] MEDS: SODIUM CHLORIDE 0.9% FLUSH 10 ML IV ×2 (08:24→20:25)
[2023-08-06] MEDS: CALCIUM CARBONATE 500 MG TAB 1000 MG PO ×2 (09:11→20:39)
[2023-08-06] MEDS: PROMETHAZINE 25 MG TABLET PO ×2 (09:11→18:10)
[2023-08-06] MEDS: diazePAM 5 MG TABLET PO ×2 (11:52→20:26)
[2023-08-06] MEDS: BENZONATATE 100 MG CAPSULE 200 MG PO (11:52)
--- NOTE | 2023-08-06 13:34 | DIET.CONS2 ---
Dietary Inpatient Consultation Note Admission Date: 08/01/2023 14:02 58 y F admitted presents with respiratory distress. PMH of CHF, COPD, DM2, CAD w/ prior [place]. Nutrition screened for LOS. Reviewed chart. Pt is nutritionally adequate. Noted in healthcare team rounds pt left AMA at [facility] due to the provider not letting her eat her usual diet with pt reporting she is unable to follow cardiac diet. Diet educ postponed at this time. Diet: 08/01/23 Dinner General (Regular) Diet Diet Modifications: Nutrition Percent Meal Consumed 100% 08/05/23 19:00 Percent Meal Consumed 100% 08/05/23 17:37 Percent Meal Consumed 75% 08/05/23 07:00 Percent Meal Consumed 100% 08/04/23 18:28 Percent Meal Consumed 100% 08/04/23 16:00 Electronically Signed by: Kya Gordon 08/06/23 13:34 Clinical Dietitian [address] [address]
--- NOTE | 2023-08-06 13:59 | PT.IPTN ---
Current Diagnoses Chronic obstructive pulmonary disease with (acute) exacerbation (08/01/23) Physical Therapy Treatment Note M2 PT-IP Current Condition Start: 08/04/23 13:57 Freq: NEEDED Status: Active Protocol: Document 08/04/23 11:10 AB (Rec: 08/04/23 14:09 AB [id number]) Physical Therapy Current Condition Current Condition Evaluation Date 08/04/23 Treatment Diagnosis PNA; COPD exacerbation; difficulty in walking Onset Date 08/01/23 M3 PT-IP Subjective Start: 08/04/23 13:57 Freq: NEEDED Status: Active Protocol: Document 08/06/23 11:04 MB (Rec: 08/06/23 13:59 MB [id number]) Subjective Physical Therapy Visit Type Type Treatment Note Visit Start Time 11:04 Visit Stop Time 11:27 Number of SUPERVISOR COLD ROLLING Visits 0 Physical Therapy Visit Comments Patient Comments Pt is agreeable to try steps. Cleared with nsg to take pt out of room to steps with mask donned, 3L nasal canula donned under mask M4 PT-IP Mobility and Gait Start: 08/04/23 13:57 Freq: NEEDED Status: Active Protocol: Document 08/06/23 11:04 MB (Rec: 08/06/23 13:59 MB [id number]) PT-Bed Mobility Assessment Supine to Sit Supine to Sit Standby Assistance,1 Person Assistance,Head of Bed Elevated,Bedrails Scooting Scooting to Edge of Bed Standby Assistance PT-Transfer Assessment Sit to and From Stand Sit to and from Stand Standby Assistance,1 Person Assistance,Use of Upper Extremities Equipment Transfer Assistive Device Front Wheeled Walker Comments Mobility Comments Pt O2 sats on 3L face mask remain in the 90s at rest and with bed mobility. Pt requires SBA to CGA for several transfers from bed to w/c to steps and back to w/c and bed without AD. Superv to gait to BR 10' with RW Gait Assessment Gait Gait Assistance Required: Standby Assistance,1 Person Assist Distance (Feet) 10 Assistive Devices Assistive Device Front Wheeled Walker Gait Deviations General Gait Pattern Decreased Stride Length, Decreased Feet Clearance, Flexed Trunk,Wide Based Gait Factors Limiting Gait Function Factors Limiting Gait Function Decreased Activity Tolerance, Decreased Strength,Poor Balance,Poor Safety Awareness, Respiratory Distress Stair Climbing Assessment Evaluation Level of Assist On Stairs Standby Assistance,1 Person Assistance Devices Stair Climbing Assistive Devices Left Railing Technique/Endurance Stair Climbing Direction Ascend and Descend Stair Climbing Technique Step to Step Number of Steps Climbed 3 Stair Climbing Set # Repetitions (reps) 1 Comments Stair Climbing Comments Both hands on left rail ascend and same rail descend PT-Balance Assessment Sitting Balance and Reactions Static Sitting Balance Ability Good Dynamic Sitting Balance Ability Good Standing Balance and Reactions Static Standing Balance Ability Good Dynamic Standing Balance Ability Fair Device Used 2WW M5 PT-IP Objective Assessments Start: 08/04/23 13:57 Freq: NEEDED Status: Active Protocol: Document 08/04/23 11:10 AB (Rec: 08/04/23 14:09 AB [id number]) Orientation Orientation/Cognition Level of Alertness Alert Orientation Name,Place,Situation Safety Awareness Decreased Safety Awareness Memory Description Short Term Impaired,Law Office Manager Impaired Gross Range of Motion Lower Extremity ROM Assessment Within Functional Limits Strength Lower Extremity Strength Assessment Within Functional Limits Muscle Tone Muscle Tone WNL Yes M6 PT-IP Treatment Start: 08/04/23 13:57 Freq: NEEDED Status: Active Protocol: Document 08/04/23 11:10 AB (Rec: 08/04/23 14:09 AB [id number]) Physical Therapy Treatment Education Education Provided Safety M7 PT-IP Assessment and Plan Start: 08/04/23 13:57 Freq: NEEDED Status: Active Protocol: Document 08/06/23 11:04 MB (Rec: 08/06/23 13:59 MB [id number]) PT Summary Assessment and Plan Potential Rehabilitation Potential Fair Status of Condition at Evaluation Evolving Summary Impairments Pain,ROM,Strength,Balance, Cognition,Transfers,Gait, Activity Tolerance Assessment Summary Pt con't with SOB at rest that is worse with mobility and her sats decrease to 82-84% on 3L nasal canula with stair training today and she reaches 3/3 Dyspnea Scale. Goals Bed Mobility Goal Independent Transfer Goal Independent,Front Wheeled Walker Gait Goal Independent,Front Wheel Walker Gait Distance 200 Other Goals improve transfers and ambulation using SPC/LRAD 250 ft SBA up/down 5 steps R rail ascending SBA up/down 3 steps using SPC SBA Days to Meet Goals 10 Frequency of Treatment Frequency Of Treatment Once a Day Treatment Plan Physical Therapy Treatment Plan Bed Mobility Training,Transfer Training,Gait Training, Therapeutic Exercise,Balance Retraining,Discharge Planning, Hot or Cold Pack,Neuromuscular Re-ed,Coordination Retraining ,Manual Therapy Precautions Other Precautions contact precautions (sputum); droplet precautions ( Rhinovirus); Recommendations To Nursing Amount of Assist Needed 1 Person Assist Discharge Recommendations PT Discharge Recommendations Home with Assistance,Home Health Transportation Needs at Discharge Private Vehicle
[2023-08-06] MEDS: methocarbamoL 500 MG TABLET PO ×2 (15:29→23:54)
--- NOTE | 2023-08-06 16:23 | PM.PN.1 ---
Subjective Subjective Interval history: She remains hypoxic and wheezing. Still feels bad but does feel like she is slowly starting to get better symptomatically. Exam Vital Signs (past 8 hours): - 08/06/23 09:00 08/06/23 10:14 08/06/23 12:00 Pulse Rate 74 65 Respiratory Rate 18 Blood Pressure 132/58 L Pulse Oximetry 95 95 Oxygen Delivery Method Oximask Oximask Oxygen Flow Rate 3 3 08/06/23 15:36 Pulse Rate 67 Respiratory Rate 24 Blood Pressure Pulse Oximetry 95 Oxygen Delivery Method Oximask Oxygen Flow Rate 3 Oxygen Delivery Method Oximask Oxygen Flow Rate 3 Narrative Exam Narrative: Alert and oriented x3. Appears tired out, no apparent distress. Heart is regular rate and rhythm without murmur Lungs have left-sided wheezes improved since yesterday. Extremities have no ankle edema. Objective Labs 08/04/23 05:33 08/04/23 05:33 [facility] Medical History CAD (coronary artery disease) Congestive heart failure COPD (chronic obstructive pulmonary disease) Surgical History AICD (automatic cardioverter/defibrillator) present H/O heart artery stent Social History household members: spouse and none lives independently: Yes Smoking Status: Current every day smoker alcohol intake: never Assessment & Plan Assessment & Plan narrative: 1. COPD with exacerbation ?- exacerbation probably due to rhinovirus with possible superimposed bacterial PNA ?- RT eval and treat, start nebulizer therapies and albuterol as needed ?- after initially using prednisone 40 mg daily with minimal improvement changed to IV solumedrol BID 60 mg. 2. Rhinovirus infection with possible superimposed bacterial pneumonia and sepsis with acute on chronic respiratory failure with hypoxia and hypercapnea, and hypotension ?- Resp PCR positive for rhinovirus ?- WBC elevated, may be indicative of a bacterial pneumonia. - SOFA score of 4 with hypotension, PF ratio based on arterial blood gas is 218 but does have some chronic hypoxia due to COPD. - continue ceftriaxone and azithromycin for presumed bacterial PNA. - monitor blood pressure, kept in ICU in case shock but stabilized quickly. Now regular floor care. 3. chronic systolic heart failure, acute likely ruled out or overdiuresed. ?- Last TTE 08/27 with EF 25-30%, new echo will not currently change control coordinator ?- resume home furosemide as patient was over diuresed last admission with a few doses of IV furosemide. ?- will hold home entresto for now with hypotension 4. Acute on chronic hypoxemic respiratory failure, acute now resolved ?- She is typically on 3L at home. At baseline O2 use but not symptom lane. ?- CTA negative for PE. Did show tree and bud pattern consistent with possible pneumonia. - consider diuresis as well if no continued improvement with above measures as noted in problem 1. 5. Coronary artery disease with prior [place] - Troponin was unremarkable. 6. History of cardiac arrest, status post pacemaker/AICD placement 7. Atrial fibrillation on chronic anticoagulation with Eliquis ?- continue eliquis 8. Diabetes mellitus type 2 -continue high dose sliding scale. -Begun on Lantus on 08/03 - 25 units BID. This was the dose that she needed the last time she was on Solumedrol. 9. Class 3 obesity with BMI of 40 - Her obesity puts her at significant risk of morbidity and mortality.? Would greatly benefit from weight reduction though she has lost weight recently. 10. Chronic pain syndrome - continue home medications 12. Hypertension - continue home medications 13. Hyperlipidemia - Continue home medications Code: Full surrogate is patient's daughter and granddaughter. DVT prophylaxis: Apixaban Dispo: floor care, improved BP. Likely discharge home, maybe in 1-3 days based on current symptoms.
[2023-08-06] MEDS: MELATONIN 3 MG TABLET 6 MG PO (20:26)
[2023-08-06] MEDS: MONTELUKAST 10 MG TABLET PO (20:26)
[2023-08-07] VITALS (56 sets, daily range): BP systolic 95–150; BP diastolic 56–67; PULSE 59–74; RESP 22–24; TEMP 36–36.9; O2SAT 89–99
[2023-08-07] MEDS: HYDROCODONE/ACET 5/325 TABLET 2 TAB PO ×3 (04:14→15:02)
[2023-08-07 04:41] LABS: Hemoglobin 14.7 g/dL (12.0-16.0); Mean Corpuscular HGB Conc 32.7 % (30-36); Mean Corpuscular Hemoglobin 31.6 PG (26-34); Mean Corpuscular Volume 96.7 fL (80-100); Platelet Count 247 X10^3/uL (150-400); Red Blood Cell Count 4.66 X10^6/uL (4.0-5.2); Red Cell Distribution Width 13.5 % (11.6-14.8); White Blood Cell Count 23.4 X10^3/uL (4.5-11.0)
[2023-08-07 04:49] LABS: Add Manual Diff / Slide Review YES
[2023-08-07 04:53] LABS: BUN Creatinine Ratio 38.3 (6-22); Blood Urea Nitrogen 41 mg/dL (7-17); Calcium 9.4 mg/dL (8.4-10.2); Carbon Dioxide 38 mmol/L (22-32); Chloride 101 mmol/L (98-107); Estimated Glomerular Filt Rate 59 mL/min (>60); Glucose 220 mg/dL (80-110); HEMOLYSIS < 15 (0-50); Potassium 4.8 mmol/L (3.4-5.1); Sodium 137 mmol/L (137-145)
[2023-08-07 04:58] LABS: Neutrophils Absolute Manual 21294 /uL (3000-5900); RBC Morphology Normal Morphology; Total Cells Counted 100
[2023-08-07] MEDS: ALBUTEROL/IPRATROPIUM 3 ML AMPUL INH ×4 (06:17→19:21)
[2023-08-07] MEDS: BUDESONIDE 0.5 MG/2 ML NEB INH ×2 (06:17→19:21)
[2023-08-07] MEDS: INSULIN LISPRO 100 UNIT/ML 3ML VIAL SUBCUT ×3 (08:16→16:38)
[2023-08-07] MEDS: INSULIN GLARGINE 100 UNIT/ML 3ML PEN 25 UNIT SUBCUT ×2 (08:16→20:46)
[2023-08-07] MEDS: SACUBITRIL VALSARTAN 1 EACH PO ×2 (08:18→20:38)
[2023-08-07] MEDS: MEXILETINE 150 MG 150 EACH PO ×2 (08:18→20:38)
[2023-08-07] MEDS: MULTIVITAMIN 1 TABLET 1 TAB PO (08:19)
[2023-08-07] MEDS: guaiFENesin ER 600 MG TAB PO ×2 (08:19→20:38)
[2023-08-07] MEDS: diazePAM 5 MG TABLET PO ×2 (08:19→16:52)
[2023-08-07] MEDS: APIXABAN 5 MG TABLET PO ×2 (08:19→20:38)
[2023-08-07] MEDS: AMIODARONE 200 MG TABLET 100 MG PO (08:19)
[2023-08-07] MEDS: DOCUSATE 100 MG CAPSULE PO ×2 (08:19→20:38)
[2023-08-07] MEDS: METOPROLOL ER 25 MG TABLET PO (08:19)
[2023-08-07] MEDS: FUROSEMIDE 40 MG TABLET PO (08:22)
[2023-08-07] MEDS: SENNOSIDES 8.6 MG TABLET 17.2 MG PO ×2 (09:11→20:45)
[2023-08-07] MEDS: SODIUM CHLORIDE 0.9% FLUSH 10 ML IV ×2 (09:12→20:38)
--- NOTE | 2023-08-07 09:23 | CM.DPC ---
Addendum entered by GEORGE Mcclain 08/07/23 09:31: ADD: Call from pt's PCP office Jolene Steen at [facility] requesting update on pt and for SW to fax d/c summary at discharge to their office for PCP to review and to get pt scheduled for f/u appointment after discharge. Fax for PCP is [phone]. BF Original Note: DCP Cont: Per MD, pt getting IV-steroids and slowly improving and continuing to work with PT and was on 3L oximask overnight. SW spoke to [facility] intake and they confirm that pt is not currently open to HH services with them but was discharged after improvement a couple months ago and willing to review and accept back. SW faxed new referral to [facility] to review. F2F and HH orders complete but not faxed yet. Plan: SW to follow closely for plan of discharge home with spouse and new [facility] referral. SW to fax d/c summ, F2F, and HH orders to [facility] at discharge. GEORGE Mcclain
--- NOTE | 2023-08-07 12:15 | PT.IPTN ---
Current Diagnoses Chronic obstructive pulmonary disease with (acute) exacerbation (08/01/23) Physical Therapy Treatment Note M2 PT-IP Current Condition Start: 08/04/23 13:57 Freq: NEEDED Status: Active Protocol: Document 08/04/23 11:10 AB (Rec: 08/04/23 14:09 AB [id number]) Physical Therapy Current Condition Current Condition Evaluation Date 08/04/23 Treatment Diagnosis PNA; COPD exacerbation; difficulty in walking Onset Date 08/01/23 M3 PT-IP Subjective Start: 08/04/23 13:57 Freq: NEEDED Status: Active Protocol: Document 08/07/23 13:47 TS (Rec: 08/07/23 13:58 TS [id number]) Subjective Physical Therapy Visit Type Type Treatment Note Visit Start Time 12:15 Visit Stop Time 12:40 Number of CONCRETE VIBRATOR OPERATOR Visits 1 Physical Therapy Visit Comments Patient Comments Pt found resting in bed on 3L of o2 at 95%, pt is agreeable to PT. M4 PT-IP Mobility and Gait Start: 08/04/23 13:57 Freq: NEEDED Status: Active Protocol: Document 08/07/23 13:47 TS (Rec: 08/07/23 13:58 TS [id number]) PT-Bed Mobility Assessment Supine to Sit Supine to Sit Standby Assistance,1 Person Assistance,Head of Bed Elevated,Bedrails Sit to Supine Sit to Supine Standby Assistance,1 Person Assistance,Head of Bed Elevated,Bedrails Scooting Scooting to Edge of Bed Standby Assistance Scooting Up and Down in Bed Independent PT-Transfer Assessment Sit to and From Stand Sit to and from Stand Standby Assistance,1 Person Assistance,Use of Upper Extremities Comments Mobility Comments Supine to sit SBA with HOB elevated. STS from bed SBA with FWW. She ambulated in room ~50' SBA with FWW and managing her o2 line. She has some SOB required sitting rest break to recover, Spo2 94% on 3L's. She performed steps x15 SBA with use of FWW, pt again became SOB and required to sit, Spo2 96%. Pt was left in bed, all needs met. Gait Assessment Gait Gait Assistance Required: Standby Assistance,1 Person Assist Distance (Feet) 50 Able to Maintain Weight Bearing Status Yes During Gait Assistive Devices Assistive Device Front Wheeled Walker Orthotic/Prosthetic Devices or Brace: No Gait Deviations General Gait Pattern Decreased Stride Length, Decreased Feet Clearance, Flexed Trunk,Wide Based Gait Factors Limiting Gait Function Factors Limiting Gait Function Decreased Activity Tolerance, Decreased Strength,Poor Balance,Poor Safety Awareness, Respiratory Distress Stair Climbing Assessment Evaluation Level of Assist On Stairs Standby Assistance,1 Person Assistance Devices Stair Climbing Assistive Devices Front Wheel Walker Technique/Endurance Stair Climbing Direction Ascend and Descend Stair Climbing Technique Step to Step Number of Steps Climbed 15 PT-Balance Assessment Sitting Balance and Reactions Static Sitting Balance Ability Good Dynamic Sitting Balance Ability Good Standing Balance and Reactions Static Standing Balance Ability Good Dynamic Standing Balance Ability Fair Device Used 2WW M5 PT-IP Objective Assessments Start: 08/04/23 13:57 Freq: NEEDED Status: Active Protocol: Document 08/04/23 11:10 AB (Rec: 08/04/23 14:09 AB [id number]) Orientation Orientation/Cognition Level of Alertness Alert Orientation Name,Place,Situation Safety Awareness Decreased Safety Awareness Memory Description Short Term Impaired,Partner Alliance Manager Impaired Gross Range of Motion Lower Extremity ROM Assessment Within Functional Limits Strength Lower Extremity Strength Assessment Within Functional Limits Muscle Tone Muscle Tone WNL Yes M6 PT-IP Treatment Start: 08/04/23 13:57 Freq: NEEDED Status: Active Protocol: Document 08/04/23 11:10 AB (Rec: 08/04/23 14:09 AB [id number]) Physical Therapy Treatment Education Education Provided Safety M7 PT-IP Assessment and Plan Start: 08/04/23 13:57 Freq: NEEDED Status: Active Protocol: Document 08/07/23 13:47 TS (Rec: 08/07/23 13:58 TS [id number]) PT Summary Assessment and Plan Potential Rehabilitation Potential Fair Summary Impairments Pain,ROM,Strength,Balance, Cognition,Transfers,Gait, Activity Tolerance Progress Towards Goals Progressing Toward Goals Assessment Summary Bern[place]ada is making some progress with her mobility. She ambulated ~50'SBA with FWW, had some SOB, spo2 reamined in mid 90's. She performed steps x15 SBA with FWW, again became SOB, Spo2 remained unremarkable. PT is recommending home with assist and HHPT. Goals Bed Mobility Goal Independent Transfer Goal Independent,Front Wheeled Walker Gait Goal Independent,Front Wheel Walker Gait Distance 200 Other Goals improve transfers and ambulation using SPC/LRAD 250 ft SBA up/down 5 steps R rail ascending SBA up/down 3 steps using SPC SBA Days to Meet Goals 10 Frequency of Treatment Frequency Of Treatment Once a Day Treatment Plan Physical Therapy Treatment Plan Bed Mobility Training,Transfer Training,Gait Training, Therapeutic Exercise,Balance Retraining,Discharge Planning, Hot or Cold Pack,Neuromuscular Re-ed,Coordination Retraining ,Manual Therapy Precautions Other Precautions contact precautions (sputum); droplet precautions ( Rhinovirus); Recommendations To Nursing Amount of Assist Needed 1 Person Assist Discharge Recommendations PT Discharge Recommendations Home with Assistance,Home Health Transportation Needs at Discharge Private Vehicle
--- NOTE | 2023-08-07 13:44 | PM.PN.1 ---
Subjective Subjective Interval history: She remains hypoxic and wheezing. Improved breathing, feels shaky. Exam Vital Signs (past 8 hours): - 08/07/23 06:17 08/07/23 07:00 08/07/23 08:00 Temperature 96.9 F L Pulse Rate 70 Respiratory Rate Blood Pressure 95/56 L Pulse Oximetry 93 99 Oxygen Delivery Method Oximask Oximask Oxygen Flow Rate 3 3 08/07/23 08:02 08/07/23 08:03 08/07/23 08:03 Temperature Pulse Rate 73 Respiratory Rate Blood Pressure 95/56 L Pulse Oximetry 97 98 Oxygen Delivery Method Oxygen Flow Rate 08/07/23 11:19 08/07/23 12:00 Temperature 96.8 F L Pulse Rate 74 63 Respiratory Rate 24 24 Blood Pressure 141/63 H Pulse Oximetry 95 95 Oxygen Delivery Method Oximask Oxygen Flow Rate 3 3 Oxygen Delivery Method Oximask Oxygen Flow Rate 3 Narrative Exam Narrative: Alert and oriented x3. Appears tired out, no apparent distress. Heart is regular rate and rhythm without murmur Lungs have left-sided wheezes improved since yesterday. Extremities have no ankle edema. Objective Labs 08/07/23 04:21 08/07/23 04:21 Labs: Laboratory Results - last 24 hr 08/07/23 04:21 WBC 23.4 H RBC 4.66 Hgb 14.7 Hct 45.0 MCV 96.7 MCH 31.6 MCHC 32.7 RDW 13.5 Plt Count 247 Neut % (Auto) Not Reportable Lymph % (Auto) Not Reportable Loving % (Auto) Not Reportable Eos % (Auto) Not Reportable Baso % (Auto) Not Reportable Lymph # (Auto) Not Reportable Loving # (Auto) Not Reportable Baso # (Auto) Not Reportable Total Counted 100 Seg Neutrophils % 86.0 H Band Neutrophils % 5.0 Lymphocytes % (Manual) 6.0 L Monocytes % (Manual) 2.0 Metamyelocytes % 1.0 H Neutrophils # (Manual) 08759 H RBC Morphology Normal morphology Sodium 137 Potassium 4.8 Chloride 101 Carbon Dioxide 38 H BUN 41 H Creatinine 1.07 H Estimated GFR 59 L BUN/Creatinine Ratio 38.3 H Glucose 220 H Calcium 9.4 PFSH Medical History CAD (coronary artery disease) Congestive heart failure COPD (chronic obstructive pulmonary disease) Surgical History AICD (automatic cardioverter/defibrillator) present H/O heart artery stent Social History household members: spouse and none lives independently: Yes Smoking Status: Current every day smoker alcohol intake: never Assessment & Plan Assessment & Plan narrative: 1. COPD with exacerbation ?- exacerbation probably due to rhinovirus with possible superimposed bacterial PNA ?- RT eval and treat, start nebulizer therapies and albuterol as needed ?- after initially using prednisone 40 mg daily with minimal improvement changed to IV solumedrol BID 60 mg. With shakiness and breathing improvement transition back to PO prednisone tomorrow. 2. Rhinovirus infection with possible superimposed bacterial pneumonia and sepsis with acute on chronic respiratory failure with hypoxia and hypercapnea, and hypotension ?- Resp PCR positive for rhinovirus ?- WBC elevated, may be indicative of a bacterial pneumonia. - SOFA score of 4 with hypotension, PF ratio based on arterial blood gas is 218 but does have some chronic hypoxia due to COPD. - continue ceftriaxone and azithromycin for presumed bacterial PNA. - monitor blood pressure, kept in ICU in case shock but stabilized quickly. Now regular floor care. 3. chronic systolic heart failure, acute likely ruled out or overdiuresed. ?- Last TTE 08/27 with EF 25-30%, new echo will not currently belt changer ?- resume home furosemide as patient was over diuresed last admission with a few doses of IV furosemide. ?- will hold home entresto for now with hypotension 4. Acute on chronic hypoxemic respiratory failure, acute now resolved ?- She is typically on 3L at home. At baseline O2 use but not symptom lane. ?- CTA negative for PE. Did show tree and bud pattern consistent with possible pneumonia. - consider diuresis as well if no continued improvement with above measures as noted in problem 1. 5. Coronary artery disease with prior [place] - Troponin was unremarkable. 6. History of cardiac arrest, status post pacemaker/AICD placement 7. Atrial fibrillation on chronic anticoagulation with Eliquis ?- continue eliquis 8. Diabetes mellitus type 2 -continue high dose sliding scale. -Begun on Lantus on 08/03 - 25 units BID. This was the dose that she needed the last time she was on Solumedrol. 9. Class 3 obesity with BMI of 40 - Her obesity puts her at significant risk of morbidity and mortality.? Would greatly benefit from weight reduction though she has lost weight recently. 10. Chronic pain syndrome - continue home medications 12. Hypertension - continue home medications 13. Hyperlipidemia - Continue home medications Code: Full surrogate is patient's daughter and granddaughter. DVT prophylaxis: Apixaban Dispo: floor care, improved BP. Likely discharge home, maybe in 1-3 days based on current symptoms.
[2023-08-07] MEDS: CALCIUM CARBONATE 500 MG TAB 1000 MG PO (19:47)
[2023-08-07] MEDS: MONTELUKAST 10 MG TABLET PO (20:38)
[2023-08-07] MEDS: methocarbamoL 500 MG TABLET PO (20:38)
[2023-08-07] MEDS: MELATONIN 3 MG TABLET 6 MG PO (20:38)
[2023-08-07] MEDS: CODEINE/GUAIFENESIN LIQUID 5ML UDC 10 ML PO (20:45)
[2023-08-08] VITALS (21 sets, daily range): BP systolic 91–119; BP diastolic 53–70; PULSE 59–71; RESP 18–22; TEMP 36.2–36.9; O2SAT 90–98
[2023-08-08 05:16] LABS: Hematocrit 44.2 % (36-46); Hemoglobin 14.6 g/dL (12.0-16.0); Mean Corpuscular HGB Conc 33.1 % (30-36); Mean Corpuscular Hemoglobin 31.7 PG (26-34); Mean Corpuscular Volume 95.6 fL (80-100); Platelet Count 217 X10^3/uL (150-400); Red Blood Cell Count 4.62 X10^6/uL (4.0-5.2); Red Cell Distribution Width 13.5 % (11.6-14.8); White Blood Cell Count 20.9 X10^3/uL (4.5-11.0)
[2023-08-08 05:34] LABS: Add Manual Diff / Slide Review YES; BUN Creatinine Ratio 34.9 (6-22); Blood Urea Nitrogen 38 mg/dL (7-17); Calcium 9.2 mg/dL (8.4-10.2); Carbon Dioxide 39 mmol/L (22-32); Chloride 101 mmol/L (98-107); Estimated Glomerular Filt Rate 58 mL/min (>60); Glucose 89 mg/dL (80-110); HEMOLYSIS 18 (0-50); Potassium 4.4 mmol/L (3.4-5.1); Sodium 138 mmol/L (137-145)
[2023-08-08 05:52] LABS: Neutrophils Absolute Manual 15884 /uL (3000-5900); RBC Morphology Normal Morphology; Total Cells Counted 100
[2023-08-08] MEDS: BUDESONIDE 0.5 MG/2 ML NEB INH ×2 (08:29→19:57)
[2023-08-08] MEDS: ALBUTEROL/IPRATROPIUM 3 ML AMPUL INH ×4 (08:29→19:57)
[2023-08-08] MEDS: MULTIVITAMIN 1 TABLET 1 TAB PO (08:38)
[2023-08-08] MEDS: DOCUSATE 100 MG CAPSULE PO ×2 (08:38→20:23)
[2023-08-08] MEDS: guaiFENesin ER 600 MG TAB PO ×2 (08:38→20:23)
[2023-08-08] MEDS: diazePAM 5 MG TABLET PO ×2 (08:39→15:47)
[2023-08-08] MEDS: METOPROLOL ER 25 MG TABLET PO (08:39)
[2023-08-08] MEDS: FUROSEMIDE 40 MG TABLET 80 MG PO (08:39)
[2023-08-08] MEDS: AMIODARONE 200 MG TABLET 100 MG PO (08:39)
[2023-08-08] MEDS: APIXABAN 5 MG TABLET PO ×2 (08:39→20:23)
[2023-08-08] MEDS: MEXILETINE 150 MG 150 EACH PO ×2 (08:40→20:23)
[2023-08-08] MEDS: HYDROCODONE/ACET 5/325 TABLET 2 TAB PO ×2 (08:40→15:47)
[2023-08-08] MEDS: SACUBITRIL VALSARTAN 1 EACH PO ×2 (08:40→20:23)
[2023-08-08] MEDS: predniSONE 20 MG TABLET 40 MG PO (08:57)
[2023-08-08] MEDS: SENNOSIDES 8.6 MG TABLET 17.2 MG PO ×2 (08:57→20:24)
[2023-08-08] MEDS: SODIUM CHLORIDE 0.9% FLUSH 10 ML IV ×2 (08:58→20:24)
--- NOTE | 2023-08-08 10:25 | CM.DPC ---
DCP Cont. Reviewed EMR and team rounds for status updates. Per Hospitalist, pt may need an additional 1-2 days due to continued steroid treatments. SENIOR FIREWALL ENGINEER will assist with any d/c needs she will need, pending on PT/OT recommendations.
--- NOTE | 2023-08-08 10:45 | PT.IPTN ---
Current Diagnoses Chronic obstructive pulmonary disease with (acute) exacerbation (08/01/23) Physical Therapy Treatment Note M2 PT-IP Current Condition Start: 08/04/23 13:57 Freq: NEEDED Status: Active Protocol: Document 08/04/23 11:10 AB (Rec: 08/04/23 14:09 AB [id number]) Physical Therapy Current Condition Current Condition Evaluation Date 08/04/23 Treatment Diagnosis PNA; COPD exacerbation; difficulty in walking Onset Date 08/01/23 M3 PT-IP Subjective Start: 08/04/23 13:57 Freq: NEEDED Status: Active Protocol: Document 08/08/23 11:10 TS (Rec: 08/08/23 11:21 TS [id number]) Subjective Physical Therapy Visit Type Type Treatment Note Visit Start Time 10:45 Visit Stop Time 11:09 Number of SQL SSRS SSIS DEVELOPER Visits 2 Physical Therapy Visit Comments Patient Comments Pt found resting in bed, reports feeling fatigued and having no energy today, is agreeable to PT. M4 PT-IP Mobility and Gait Start: 08/04/23 13:57 Freq: NEEDED Status: Active Protocol: Document 08/08/23 11:10 TS (Rec: 08/08/23 11:21 TS [id number]) PT-Bed Mobility Assessment Supine to Sit Supine to Sit Independent Sit to Supine Sit to Supine Independent Scooting Scooting to Edge of Bed Independent Scooting Up and Down in Bed Independent PT-Transfer Assessment Sit to and From Stand Sit to and from Stand Standby Assistance,1 Person Assistance,Use of Upper Extremities Comments Mobility Comments Pt performed bed mobility Ind with HOB elevated and BUE support. STS from bed SBA with FWW, pt has good standing balance. She ambulated in room ~50'SBA with FWW, pt became fatigued and sat in chair, Spo2 90% on 3L. She performed steps x12 with FWW SBA. pt requested back to bed due to fatigue and SOB, Spo2 remained in low 90's, recovered to mid 90's after ~30secs. Gait Assessment Gait Gait Assistance Required: Standby Assistance,1 Person Assist Distance (Feet) 50 Able to Maintain Weight Bearing Status Yes During Gait Assistive Devices Assistive Device Front Wheeled Walker Orthotic/Prosthetic Devices or Brace: No Gait Deviations General Gait Pattern Decreased Stride Length, Decreased Feet Clearance, Flexed Trunk,Wide Based Gait Factors Limiting Gait Function Factors Limiting Gait Function Decreased Activity Tolerance, Decreased Strength,Poor Balance,Poor Safety Awareness, Respiratory Distress Stair Climbing Assessment Evaluation Level of Assist On Stairs Standby Assistance,1 Person Assistance Devices Stair Climbing Assistive Devices Front Wheel Walker Technique/Endurance Stair Climbing Direction Ascend and Descend Stair Climbing Technique Step to Step Number of Steps Climbed 12 Stair Climbing Set # Repetitions (reps) 1 PT-Balance Assessment Sitting Balance and Reactions Static Sitting Balance Ability Good Dynamic Sitting Balance Ability Good Standing Balance and Reactions Static Standing Balance Ability Good Dynamic Standing Balance Ability Fair Device Used 2WW M5 PT-IP Objective Assessments Start: 08/04/23 13:57 Freq: NEEDED Status: Active Protocol: Document 08/04/23 11:10 AB (Rec: 08/04/23 14:09 AB [id number]) Orientation Orientation/Cognition Level of Alertness Alert Orientation Name,Place,Situation Safety Awareness Decreased Safety Awareness Memory Description Short Term Impaired,Shelter Impaired Gross Range of Motion Lower Extremity ROM Assessment Within Functional Limits Strength Lower Extremity Strength Assessment Within Functional Limits Muscle Tone Muscle Tone WNL Yes M6 PT-IP Treatment Start: 08/04/23 13:57 Freq: NEEDED Status: Active Protocol: Document 08/04/23 11:10 AB (Rec: 08/04/23 14:09 AB [id number]) Physical Therapy Treatment Education Education Provided Safety M7 PT-IP Assessment and Plan Start: 08/04/23 13:57 Freq: NEEDED Status: Active Protocol: Document 08/08/23 11:10 TS (Rec: 08/08/23 11:21 TS [id number]) PT Summary Assessment and Plan Potential Rehabilitation Potential Fair Summary Impairments Pain,ROM,Strength,Balance, Cognition,Transfers,Gait, Activity Tolerance Progress Towards Goals Progressing Toward Goals Assessment Summary Bernarda continues to ambulate short distances in her room on 3L of o2 before getting fatigue and SOB. She performed steps x12 SBA with FWW, Spo2 remained in low 90's. She does report feeling more fatigue than yesterday and she has poor tolerance to activity. PT continues to recommend home with assist and HHPT. Goals Bed Mobility Goal Independent Transfer Goal Independent,Front Wheeled Walker Gait Goal Independent,Front Wheel Walker Gait Distance 200 Other Goals improve transfers and ambulation using SPC/LRAD 250 ft SBA up/down 5 steps R rail ascending SBA up/down 3 steps using SPC SBA Days to Meet Goals 10 Frequency of Treatment Frequency Of Treatment Once a Day Treatment Plan Physical Therapy Treatment Plan Bed Mobility Training,Transfer Training,Gait Training, Therapeutic Exercise,Balance Retraining,Discharge Planning, Hot or Cold Pack,Neuromuscular Re-ed,Coordination Retraining ,Manual Therapy Precautions Other Precautions contact precautions (sputum); droplet precautions ( Rhinovirus); Recommendations To Nursing Amount of Assist Needed Standby Assistance Discharge Recommendations PT Discharge Recommendations Home with Assistance,Home Health Transportation Needs at Discharge Private Vehicle
[2023-08-08] MEDS: INSULIN LISPRO 100 UNIT/ML 3ML VIAL SUBCUT ×3 (12:10→20:32)
--- NOTE | 2023-08-08 17:30 | P.PN_ITS ---
Subjective Subjective Interval history: Improved breathing, finally starting to feel better. Ate a large meal with hyperglycemia before dinner. She is very anxious about going home. Exam Vital Signs (past 8 hours): - 08/08/23 12:00 08/08/23 12:01 08/08/23 15:26 Temperature 97.1 F L Pulse Rate 59 L Respiratory Rate 18 Blood Pressure 116/62 Pulse Oximetry 93 91 Oxygen Delivery Method Oximask Oximask Oxygen Flow Rate 3 3 3 08/08/23 16:00 Temperature 97.5 F L Pulse Rate 62 Respiratory Rate 18 Blood Pressure 117/59 L Pulse Oximetry 94 Oxygen Delivery Method Oxygen Flow Rate 3 Oxygen Delivery Method Oximask Oxygen Flow Rate 3 Narrative Exam Narrative: Alert and oriented x3. Appears improved, no apparent distress. Heart is regular rate and rhythm without murmur Lungs have left-sided wheezes improved since yesterday. Extremities have no ankle edema. Objective Labs 08/08/23 05:00 08/08/23 05:00 Labs: Laboratory Results - last 24 hr 08/08/23 05:00 WBC 20.9 H RBC 4.62 Hgb 14.6 Hct 44.2 MCV 95.6 MCH 31.7 MCHC 33.1 RDW 13.5 Plt Count 217 Neut % (Auto) Not Reportable Lymph % (Auto) Not Reportable [place] % (Auto) Not Reportable Eos % (Auto) Not Reportable Baso % (Auto) Not Reportable Lymph # (Auto) Not Reportable [place] # (Auto) Not Reportable Baso # (Auto) Not Reportable Total Counted 100 Seg Neutrophils % 70.0 Band Neutrophils % 6.0 Lymphocytes % (Manual) 18.0 L Monocytes % (Manual) 4.0 Metamyelocytes % 2.0 H Neutrophils # (Manual) 74901 H RBC Morphology Normal morphology Sodium 138 Potassium 4.4 Chloride 101 Carbon Dioxide 39 H BUN 38 H Creatinine 1.09 H Estimated GFR 58 L BUN/Creatinine Ratio 34.9 H Glucose 89 D Calcium 9.2 PFSH Medical History CAD (coronary artery disease) Congestive heart failure COPD (chronic obstructive pulmonary disease) Surgical History AICD (automatic cardioverter/defibrillator) present H/O heart artery stent Social History household members: spouse and none lives independently: Yes Smoking Status: Current every day smoker alcohol intake: never Assessment & Plan Assessment & Plan narrative: 1. COPD with exacerbation ?- exacerbation probably due to rhinovirus with possible superimposed bacterial PNA ?- RT eval and treat, start nebulizer therapies and albuterol as needed ?- after initially using prednisone 40 mg daily with minimal improvement changed to IV solumedrol BID 60 mg. With shakiness and breathing improvement transition back to PO prednisone now. 2. Rhinovirus infection with possible superimposed bacterial pneumonia and sepsis with acute on chronic respiratory failure with hypoxia and hypercapnea, and hypotension ?- Resp PCR positive for rhinovirus ?- WBC elevated, may be indicative of a bacterial pneumonia. - SOFA score of 4 with hypotension, PF ratio based on arterial blood gas is 218 but does have some chronic hypoxia due to COPD. - continue ceftriaxone and azithromycin for presumed bacterial PNA. - monitor blood pressure, kept in ICU in case shock but stabilized quickly. Now regular floor care. 3. chronic systolic heart failure, acute likely ruled out or overdiuresed. ?- Last TTE 08/27 with EF 25-30%, new echo will not currently change management director ?- resume home furosemide as patient was over diuresed last admission with a few doses of IV furosemide. ?- Now back on entresto after holding for hypotension 4. Acute on chronic hypoxemic respiratory failure, acute now resolved ?- She is typically on 3L at home. At baseline O2 use but not symptom lane. ?- CTA negative for PE. Did show tree and bud pattern consistent with possible pneumonia. - consider diuresis as well if no continued improvement with above measures as noted in problem 1. 5. Coronary artery disease with prior NC - Troponin was unremarkable. 6. History of cardiac arrest, status post pacemaker/AICD placement 7. Atrial fibrillation on chronic anticoagulation with Eliquis ?- continue eliquis 8. Diabetes mellitus type 2 -continue high dose sliding scale. -Begun on Lantus on 08/03 - 25 units BID. This was the dose that she needed the last time she was on Solumedrol. Some hypoglycemia this morning. Have now stopped lantus. 9. Class 3 obesity with BMI of 40 - Her obesity puts her at significant risk of morbidity and mortality.? Would greatly benefit from weight reduction though she has lost weight recently. 10. Chronic pain syndrome - continue home medications 12. Hypertension - continue home medications 13. Hyperlipidemia - Continue home medications Code: Full surrogate is patient's daughter and granddaughter. DVT prophylaxis: Apixaban Dispo: floor care. Planned for and extensive discussion with patient for discharge tomorrow.
[2023-08-08] MEDS: MONTELUKAST 10 MG TABLET PO (20:23)
[2023-08-08] MEDS: CODEINE/GUAIFENESIN LIQUID 5ML UDC 10 ML PO (20:23)
[2023-08-08] MEDS: methocarbamoL 500 MG TABLET PO (20:23)
[2023-08-08] MEDS: MELATONIN 3 MG TABLET 6 MG PO (20:23)
[2023-08-08] MEDS: CALCIUM CARBONATE 500 MG TAB 1000 MG PO (22:27)
[2023-08-09 00:19] VITALS: BP 124/56; PULSE 57; TEMP 36.4; O2SAT 90
[2023-08-09 00:20] VITALS: O2SAT 90
[2023-08-09] MEDS: HYDROCODONE/ACET 5/325 TABLET 2 TAB PO ×2 (01:38→08:46)
[2023-08-09] MEDS: diazePAM 5 MG TABLET PO ×2 (01:38→08:44)
[2023-08-09 02:11] LABS: Hemoglobin 14.9 g/dL (12.0-16.0); Mean Corpuscular HGB Conc 33.2 % (30-36); Mean Corpuscular Hemoglobin 31.8 PG (26-34); Mean Corpuscular Volume 95.9 fL (80-100); Platelet Count 205 X10^3/uL (150-400); Red Cell Distribution Width 13.6 % (11.6-14.8); White Blood Cell Count 20.5 X10^3/uL (4.5-11.0)
[2023-08-09 02:13] LABS: Add Manual Diff / Slide Review YES
[2023-08-09 02:16] LABS: BUN Creatinine Ratio 37.6 (6-22); Blood Urea Nitrogen 38 mg/dL (7-17); Calcium 9.6 mg/dL (8.4-10.2); Chloride 96 mmol/L (98-107); Estimated Glomerular Filt Rate > 60 mL/min (>60); Glucose 156 mg/dL (80-110); HEMOLYSIS 27 (0-50); Potassium 4.4 mmol/L (3.4-5.1); Sodium 135 mmol/L (137-145)
[2023-08-09 02:22] LABS: Carbon Dioxide 38 mmol/L (22-32)
[2023-08-09 02:45] LABS: Neutrophils Absolute Manual 15785 /uL (3000-5900); RBC Morphology Normal Morphology; Total Cells Counted 100
[2023-08-09 03:40] VITALS: BP 145/73; TEMP 36.2; O2SAT 97
[2023-08-09] MEDS: CALCIUM CARBONATE 500 MG TAB 1000 MG PO (05:56)
[2023-08-09 08:00] VITALS: BP 121/62; PULSE 60; RESP 19; TEMP 36.1; O2SAT 96
--- NOTE | 2023-08-09 08:06 | PM.DS.1 ---
History of Present Illness History of Present Illness Date Patient Seen: 08/09/23 Time Patient Seen: 08:07 Chief complaint: coughing, green spetum, low O2 Narrative: 57-year-old female with COPD, chronic hypoxic respiratory failure (prescribed 2-3 L of oxygen continuously), chronic systolic congestive heart failure (EF 25%), coronary artery disease with her 1st AK at age 29 previous cardiac arrest status post pacemaker/AICD placement, diabetes mellitus type 2 on oral antidiabetic agents, class 3 obesity who presents with shortness of breath for the past 4 days. Her grandson had a cold recently, denies any other sick contacts. She presented with wheezing, productive cough, shortness of breath. She is on her baseline 3L currently in the ER. She denies overt fever or chills. Blood pressure was a bit soft, PICC line was ordered by the ER as trend was looking as if she may need some pressure support medications. Admitted to the ICU for sepsis due to pneumonia with possible developing septic shock. Discharge Providers Provider Date of admission: 08/01/23 14:02 Discharge Date: 08/09/23 Primary care physician: Jolene Steen PA-C Consults: 08/04/23 11:08 Consult to Physical Therapy Evaluate & Treat Comment: Physician Instructions: Evaluate and Treat 08/07/23 09:21 Consult to Home Health Routine Comment: Rhinovirus, hypoxia, weakness, SOB Reason For Exam: Set up RN/PT/OT for discharge to home Discharge provider: Armin Echols DO Summary Hospital Course Discharge Diagnosis: 1. COPD with exacerbation 2. Rhinovirus infection with possible superimposed bacterial pneumonia and sepsis with acute on chronic respiratory failure with hypoxia and hypercapnea, and hypotension 3. chronic systolic heart failure, acute likely ruled out 4. Acute on chronic hypoxemic respiratory failure, acute now resolved 5. Coronary artery disease with prior [place] 6. History of cardiac arrest, status post pacemaker/AICD placement 7. Atrial fibrillation on chronic anticoagulation with Eliquis 8. Diabetes mellitus type 2 9. Class 3 obesity with BMI of 40 10. Chronic pain syndrome 12. Hypertension 13. Hyperlipidemia Hospital Course: This is a 57 year old female with PMH of COPD with chronic hypoxic respiratory failure who presented with shortness of breath and possible increased oxygen requirements that had improved by time she was admitted to the floor. She was initially admitted with concern for CHF exacerbation, COPD exacerbation in the setting of rhinovirus with possible superimposed bacterial pneumonia and sepsis. She was started on steroids, antibiotics but diuresis was held given similarity to previous admission with development of ALISSA. She was already on beta majo and entresto prior to admission which were initially held due to hypotension but restarted prior to discharge. She was slow to improve. Steroids were increased to solumedrol twice daily. With this she required lantus to control elevated blood sugar levels. A few days after those changes were made her wheezing started to improve and her breathing felt improved. Her stay was complicated by difficult to control musculoskeletal neck pain improved with norco. I do recommend outpatient consultation with pain management if no improvement with outpatient physical therapy. She was discharged with pain medications for her neck pain, steroids for COPD exacerbation, and oral antibiotics to complete treatment for her bacterial pneumonia. Time Spent with Patient Time spent: Greater than 30 minutes Exam Vital Signs (past 8 hours): - 08/09/23 00:19 08/09/23 00:19 08/09/23 00:20 Temperature 97.6 F Pulse Rate 57 L Blood Pressure 124/56 L Pulse Oximetry 90 L 90 L Oxygen Flow Rate 2 08/09/23 03:40 08/09/23 03:40 Temperature 97.1 F L Pulse Rate Blood Pressure 145/73 H Pulse Oximetry 97 Oxygen Flow Rate 3 Oxygen Delivery Method Oximask Oxygen Flow Rate 3 Narrative Exam Narrative: Alert and oriented x3. Appears improved, no apparent distress. Heart is regular rate and rhythm without murmur Lungs have left-sided wheezes improved since yesterday. Extremities have no ankle edema. Objective Labs 08/09/23 01:48 08/09/23 01:48 Labs: Laboratory Results - last 24 hr 08/09/23 01:48 WBC 20.5 H RBC 4.70 Hgb 14.9 Hct 45.0 MCV 95.9 MCH 31.8 MCHC 33.2 RDW 13.6 Plt Count 205 Neut % (Auto) Not Reportable Lymph % (Auto) Not Reportable [place] % (Auto) Not Reportable Eos % (Auto) Not Reportable Baso % (Auto) Not Reportable Lymph # (Auto) Not Reportable [place] # (Auto) Not Reportable Baso # (Auto) Not Reportable Total Counted 100 Seg Neutrophils % 75.0 H Band Neutrophils % 2.0 L Lymphocytes % (Manual) 19.0 L Monocytes % (Manual) 4.0 Neutrophils # (Manual) 57061 H RBC Morphology Normal morphology Sodium 135 L Potassium 4.4 Chloride 96 L Carbon Dioxide 38 H BUN 38 H Creatinine 1.01 Estimated GFR > 60 BUN/Creatinine Ratio 37.6 H Glucose 156 H Calcium 9.6 PFSH Medical History CAD (coronary artery disease) Congestive heart failure COPD (chronic obstructive pulmonary disease) Surgical History AICD (automatic cardioverter/defibrillator) present H/O heart artery stent Social History household members: spouse and none lives independently: Yes Smoking Status: Current every day smoker alcohol intake: never Discharge Plan Discharge Plan Patient Disposition: Home Provider Discharge Comment: You were admitted to the hospital with trouble breathing. Improved with steroids, antibiotics, fluid removal. You can resume prior home medications. Continue steroid taper over this week then stop. Antibiotics sent for another couple of days at home. Discharge orders & Medications Prescriptions: New prednisone 20 mg Tablet See Rx Instructions .ROUTE .COMPLEX Qty: 10 0RF Rx Instructions: Take 40 mg daily for 3 days, 20 mg daily for 3 days, 10 mg daily for 2 days, then stop. amoxicillin-pot clavulanate 875-125 mg tablet 1 tab PO BID 4 Days Qty: 8 0RF Continued amiodarone 200 mg tablet 100 mg PO DAILY Patient Comments: TAKE 1/2 (ONE-HALF) TABLET BY MOUTH ONCE DAILY albuterol sulfate [Ventolin HFA] 90 mcg/actuation HFA aerosol inhaler 2 puff INHALATION QID PRN (Reason: Shortness Of Breath) Patient Comments: INHALE 2 PUFFS BY MOUTH 4 TIMES DAILY NEEDED Eliquis 5 mg tablet 5 mg PO BID Patient Comments: TAKE 1 TABLET BY MOUTH TWICE DAILY metoprolol succinate 25 mg tablet extended release 24 hr 25 mg PO DAILY Patient Comments: TAKE 1 TABLET BY MOUTH TWICE DAILY FOR BLOOD PRESSURE ProAir RespiClick 90 mcg/actuation aerosol powdr breath activated 2 inh INHALATION Q4H PRN (Reason: Shortness Of Breath) Patient Comments: INHALE 2 PUFFS BY MOUTH EVERY 4 TO 6 HOURS NEEDED promethazine 25 mg tablet 25 mg PO Q6H PRN (Reason: Nausea) Patient Comments: TAKE 1 TABLET BY MOUTH EVERY 6 HOURS multivitamin Tablet 1 tab PO DAILY Mucinex DM 30-600 mg Tablet Extended Release 12 Hr 1 tab PO BEDTIME methocarbamol 500 mg tablet 500 mg PO TID PRN (Reason: Muscle Spasm) Patient Comments: TAKE 1 TABLET BY MOUTH THREE TIMES DAILY NEEDED FOR MUSCLE SPASM albuterol sulfate 2.5 mg /3 mL (0.083 %) solution for nebulization 2.5 mg inhalation 4XD PRN (Reason: wheezing) mexiletine 150 mg capsule 150 mg PO BID budesonide 0.5 mg/2 mL suspension for nebulization 0.5 mg inhalation BID montelukast 10 mg tablet 10 mg PO BEDTIME Jardiance 10 mg tablet 10 mg PO DAILY Entresto 24-26 mg tablet 1 tab PO BID furosemide 40 mg tablet 80 mg PO DAILY Patient Comments: TAKE 1 TABLET BY MOUTH TWICE DAILY hydrocodone-acetaminophen 5-325 mg tablet 1 tab PO Q6H PRN (Reason: Pain (Scale Score 1-3)) 7 Days Qty: 20 0RF fluticasone propionate 50 mcg/actuation spray,suspension 2 spray INTRANASAL BID Follow up/Referrals: Jolene Steen PA-C [Primary Care Provider] - Diet/Activity/Treatments Diet: Diet as Tolerated Activity: As tolerated, no restrictions Visit Report/Discharge Packet Instructions: DI for Heart Failure, DI for Prescription Opioid Use Stand Alone Forms: Congestive Heart Failure, Patient Portal/API, Stroke Signs & Symptoms Discharge Data Primary Care Provider: Jolene Steen
[2023-08-09] MEDS: guaiFENesin ER 600 MG TAB PO (08:44)
[2023-08-09] MEDS: predniSONE 20 MG TABLET 40 MG PO (08:45)
[2023-08-09] MEDS: FUROSEMIDE 40 MG TABLET 80 MG PO (08:45)
[2023-08-09] MEDS: SENNOSIDES 8.6 MG TABLET 17.2 MG PO (08:45)
[2023-08-09] MEDS: METOPROLOL ER 25 MG TABLET PO (08:46)
[2023-08-09] MEDS: DOCUSATE 100 MG CAPSULE PO (08:46)
[2023-08-09] MEDS: APIXABAN 5 MG TABLET PO (08:46)
[2023-08-09] MEDS: MEXILETINE 150 MG 150 EACH PO (08:47)
[2023-08-09] MEDS: SACUBITRIL VALSARTAN 1 EACH PO (08:47)
[2023-08-09] MEDS: MULTIVITAMIN 1 TABLET 1 TAB PO (08:47)
[2023-08-09] MEDS: AMIODARONE 200 MG TABLET 100 MG PO (08:47)
[2023-08-09] MEDS: SODIUM CHLORIDE 0.9% FLUSH 10 ML IV (08:48)
--- NOTE | 2023-08-09 08:59 | CM.DPC ---
DCP Cont. Reviewed EMR for status updates. Pt is now medically cleared for discharge. Pt has called family and they are discussing plan for transport. No further DCP needs indicated at this time.
== END 2023-08-09 11:10 | disposition home or self-care (01) | DRG 871 ==
LOC: ED 11:20 → AC 14:03 → ICU 14:12
PROVIDERS: Admitting Provider Internal Medicine; Emergency Provider Emergency Medicine; Family Provider Internal Medicine; PCP Physician Assistant Medical; Referring Provider Emergency Medicine; Visit Provider Internal Medicine
DX: A41.9 Sepsis, unspecified organism (principal); J18.9 Pneumonia, unspecified organism; J96.21 Acute and chronic respiratory failure with hypoxia; J96.22 Acute and chronic respiratory failure with hypercapnia; J44.1 Chronic obstructive pulmonary disease with (acute) exacerbation; Z68.41 Body mass index [BMI] 40.0-44.9, adult; F17.200 Nicotine dependence, unspecified, uncomplicated; B97.89 Other viral agents as the cause of diseases classified elsewhere; I25.10 Atherosclerotic heart disease of native coronary artery without angina pectoris; I48.91 Unspecified atrial fibrillation; I25.2 Old myocardial infarction; E66.01 Morbid (severe) obesity due to excess calories; G89.4 Chronic pain syndrome; I10 Essential (primary) hypertension; E78.5 Hyperlipidemia, unspecified; R65.20 Severe sepsis without septic shock; E11.65 Type 2 diabetes mellitus with hyperglycemia; Z79.84 Long term (current) use of oral hypoglycemic drugs; Z95.0 Presence of cardiac pacemaker; Z79.01 Long term (current) use of anticoagulants; Z99.81 Dependence on supplemental oxygen
CPT/HCPCS: 36415; 36569; 36592; 36600; 71045; 80048; 80053; 81001; 82805; 82962; 83605; 83735; 83880; 84484; 85007; 85025; 85610; 87040; 87070; 87205; 87633; 87797; 93005; 94640; 94760; 94762; 96365; 96375; 97116; 97162; 97530; 99284; 99291; J0696; J1642; J1650; J1815; J2919; J2920; J7613

== ENCOUNTER 2023-10-04 12:10 | Inpatient (IN) | payer MEDICARE, MEDICAID, SELFPAY ==
[2022-07-17 10:41] VITALS: PULSE 61; RESP 24; O2SAT 94
[2023-08-01 15:15] VITALS: BMI 42.5
[2023-10-04] VITALS (102 sets, daily range): BP systolic 62–119; BP diastolic 32–72; PULSE 60–109; RESP 10–38; TEMP 32–37.9; O2SAT 86–100; BMI 48.8; BMI 45.7
[2023-10-04] MEDS: fentaNYL 100 MCG/2 ML INJ 50 MCG IV (12:20)
--- NOTE | 2023-10-04 12:21 | ED.CHESTPAIN ---
HPI - Chest Pain General Chief Complaint: Chest Pain Stated Complaint: SOB/Chest Pain Time Seen by Provider: 10/04/23 12:19 Source: patient, EMS, RN notes reviewed and old records reviewed Mode of arrival: EMS Limitations: no limitations History of Present Illness HPI narrative: 58-year-old female history of COPD on 3 L home O2, congestive heart failure with an EF of 25% in August of 2022 left ventricular wall thickness was upper limits of normal has a pacemaker in the right ventricle there was no pericardial effusion or pleural effusion. Patient presents with complaint of recent upper respiratory infection with sudden increase in shortness of breath, chest pain. Patient per EMS we will often get pneumonia when she gets sick. No reported fevers, patient has quite a bit of pain in her left lower extremity where they placed an IO in transport in has difficulty focusing to give answers. Per EMS patient was 95% on her usual 3 L upon arrival, they noted increased work of breathing and transport so they placed her on CPAP because of this they were attempting to obtain access in her blood pressure had a diastolic in the 90s they wish to start fluids and could not find any IV placement and placed an IO for hypotension. They note that her MAP was never below 65. Patient's allergies include shellfish, iodine and doxycycline. Related Data Home Medications Medication Instructions Recorded Confirmed albuterol sulfate 90 mcg/actuation 2 puff inhalation QID PRN 07/17/22 08/01/23 aerosol inhaler (Ventolin HFA) Shortness Of Breath amiodarone 200 mg tablet 100 mg PO DAILY 07/17/22 08/01/23 apixaban 5 mg tablet (Eliquis) 5 mg PO BID 07/17/22 08/01/23 albuterol sulfate 90 mcg/actuation 2 inh inhalation Q4H PRN Shortness 08/29/22 08/01/23 breath activated powder inhaler Of Breath (ProAir RespiClick) dextromethorphan-guaifenesin 30 1 tab PO BEDTIME 08/29/22 08/01/23 mg-600 mg tablet extended [id number] hr (Mucinex DM) methocarbamol 500 mg tablet 500 mg PO TID PRN Muscle Spasm 08/29/22 08/01/23 metoprolol succinate 25 mg 25 mg PO DAILY 08/29/22 08/01/23 tablet,extended release 24 hr multivitamin 1 tab PO DAILY 08/29/22 08/01/23 promethazine 25 mg tablet 25 mg PO Q6H PRN Nausea 08/29/22 08/01/23 fluticasone propionate 50 2 spray intranasal BID 11/07/22 08/01/23 mcg/actuation nasal spray,suspension albuterol sulfate 2.5 mg/3 mL 2.5 mg inhalation 4XD PRN wheezing 08/01/23 08/01/23 (0.083 %) solution for nebulization budesonide 0.5 mg/2 mL suspension 0.5 mg inhalation BID 08/01/23 08/01/23 for nebulization empagliflozin 10 mg tablet 10 mg PO DAILY 08/01/23 08/01/23 (Jardiance) furosemide 40 mg tablet 80 mg PO DAILY 08/01/23 08/01/23 mexiletine 150 mg capsule 150 mg PO BID 08/01/23 08/01/23 montelukast 10 mg tablet 10 mg PO BEDTIME 08/01/23 08/01/23 sacubitril 24 mg-valsartan 26 mg 1 tab PO BID 08/01/23 08/01/23 tablet (Entresto) Previous Rx's Medication Instructions Recorded hydrocodone 5 mg-acetaminophen 325 1 tab PO Q6H PRN Pain (Scale Score 08/09/23 mg tablet 1-3) 7 days #20 tabs prednisone 20 mg tablet See Rx Instructions .Route 08/09/23 .COMPLEX #10 tabs Allergies Allergy/AdvReac Type Severity Reaction Status Date / Time bee pollen Allergy Severe Anaphylaxis Verified 08/01/23 11:23 Fish Containing Products Allergy Severe Anaphylaxis Verified 08/01/23 11:23 shellfish derived Allergy Severe Anaphylaxis Verified 08/01/23 11:23 codeine Allergy Verified 08/01/23 11:23 erythromycin base Allergy Verified 08/01/23 11:23 iodine Allergy Rash Verified 08/01/23 11:23 latex Allergy Rash Verified 08/01/23 11:23 pamabrom [From Midol] Allergy Verified 08/01/23 11:23 doxycycline AdvReac Vomiting Verified 08/01/23 11:23 Review of Systems Review of Systems ROS Unobtainable: All systems reviewed & are unremarkable except as noted in HPI and below Patient History Medical History CAD (coronary artery disease) Congestive heart failure COPD (chronic obstructive pulmonary disease) Surgical History AICD (automatic cardioverter/defibrillator) present H/O heart artery stent Social History household members: spouse and none lives independently: Yes Smoking Status: Current every day smoker alcohol intake: never Smoking Status: Current every day smoker tobacco type: cigarettes alcohol intake frequency: holidays/special occasions only Substance Use Type: does not use Exam Narrative Exam Narrative: GEN: Obese female, alert and oriented, patient appears to be in moderate distress. HEENT: Atraumatic, pupils are equal round reactive to light, extraocular movements are intact, nares are clear, there is no conjunctival pallor. Throat is clear without any exudates, erythema, tonsillar enlargement or uvular deviation HEART: Regular rate and rhythm without murmur, clicks, rubs. Pulses are equal in upper and lower extremities LUNGS:Lungs slightly decreased bilaterally but patient is moaning during examination, no wheezes, rales, crackles, chest moves symmetrically, positive for tachypnea. ABD:bowel sounds normal, soft, non-tender, no guarding, rebound, rigidity, no masses noted, no hepatosplenomegaly :No CVA tenderness MSCL: Non-tender, no muscle atrophy, muscles strength 5/5 upper and lower extremities, full range of motion, patient has a yellow IO in her left tibia, it is flowing well, there has no swelling in the surrounding site there is no fluctuance it appears to be intact. Patient has 2+ pulses bilateral lower extremities. NEURO:CN 2-12 intact, sensation normal Initial Vital Signs Initial Vital Signs: Vital Signs Temperature 98.2 F 10/04/23 12:13 Pulse Rate 109 H 10/04/23 12:13 Respiratory Rate 24 10/04/23 12:13 Blood Pressure 119/57 L 10/04/23 12:13 Pulse Oximetry 91 10/04/23 12:13 Oxygen Delivery Method CPAP 10/04/23 12:13 Course Orders Ordered: ED Orders 10/04/23 12:20 EKG-12 Lead Stat 10/04/23 12:25 Complete Blood Count AUTO DIFF Stat Comprehensive Metabolic Panel Stat Lactate (Lactic Acid) Stat Lipase Stat NT-proBNP (BNP-Adult 18+) Stat Procalcitonin Stat Troponin & CK Cardiac Panel Stat 10/04/23 12:35 BiPAP Ventilatory Support RT PROTOCOL 10/04/23 12:55 Hemoglobin and Hematocrit Stat PRBC [Packed Cells] Stat Type and Screen Stat 10/04/23 13:04 ABG [Arterial Blood Gas] Stat 10/04/23 13:08 CT chest abd pel w con Stat 10/04/23 14:32 XR chest for PICC 1V Stat 10/04/23 14:35 Trop I [Troponin I] Stat 10/04/23 17:18 Consult to General Surgery Stat Sodium Chloride (Normal Saline 0.9%) 1,000 mls @ 100 mls/hr IV CONT BRANDON Morphine Sulfate (Morphine 4 Mg/Ml Inj) 2 mg IV Q2HR PRN PRN Reason: Pain, Moderate (4-6) Naloxone HCl (Naloxone 0.4 Mg/Ml Vial) 0.2 mg IV Q2MIN PRN PRN Reason: Opiate Reversal Pantoprazole Sodium (Pantoprazole 40 Mg Vial) 40 mg IV Q12HR BRANDON Discontinued Medications Albuterol/Ipratropium (Albuterol/Ipratropium 3 Ml Ampul) 3 ml INH NOW ONE Stop: 10/04/23 12:39 Last Admin: 10/04/23 12:46 Dose: 3 ml Documented By: BARBARA Fentanyl (Fentanyl 100 Mcg/2 Ml Inj) 50 mcg IV NOW ONE Stop: 10/04/23 12:20 Last Admin: 10/04/23 12:20 Dose: 50 mcg Documented By: TRIXIE Acetaminophen (Ofirmev) 1,000 mg in 100 mls @ 400 mls/hr IV NOW ONE Stop: 10/04/23 17:42 Last Admin: 10/04/23 17:33 Dose: 400 mls/hr Documented By: MPO Lidocaine HCl (Lidocaine 2% Inj Sdv 5ml) 1 ml INJ NOW ONE Stop: 10/04/23 12:46 Last Admin: 10/04/23 14:59 Dose: Not Given Documented By: MPO Lorazepam (Lorazepam 2 Mg/Ml Inj) 0.5 mg IV NOW ONE Stop: 10/04/23 12:22 Last Admin: 10/04/23 12:24 Dose: 0.5 mg Documented By: MPO Methylprednisolone (Methylprednisolone 125 Mg/2 Ml Vial) 125 mg IV NOW ONE Stop: 10/04/23 12:20 Last Admin: 10/04/23 12:34 Dose: 125 mg Documented By: ARI Pantoprazole Sodium (Pantoprazole 40 Mg Vial) 80 mg IV NOW ONE Stop: 10/04/23 13:16 Last Admin: 10/04/23 15:14 Dose: 80 mg Documented By: ARI Vital Signs Vital signs: Vital Signs - 8 hr 10/04/23 12:13 10/04/23 12:16 10/04/23 13:10 Temperature 98.2 F Pulse Rate 109 H 68 Respiratory Rate 24 Blood Pressure 119/57 L 106/72 Pulse Oximetry 91 100 Oxygen Delivery Method CPAP BiPAP Oxygen Flow Rate Fraction of Inspired Oxygen 40 10/04/23 13:15 10/04/23 13:15 10/04/23 13:20 Temperature Pulse Rate 65 63 Respiratory Rate 23 18 Blood Pressure 79/40 L Pulse Oximetry 100 99 Oxygen Delivery Method Oxygen Flow Rate Fraction of Inspired Oxygen 10/04/23 13:20 10/04/23 13:26 10/04/23 13:26 Temperature 99.5 F Pulse Rate 64 67 Respiratory Rate 25 H 25 H Blood Pressure 81/43 L 69/44 L Pulse Oximetry 93 Oxygen Delivery Method Oxygen Flow Rate Fraction of Inspired Oxygen 10/04/23 13:26 10/04/23 13:27 10/04/23 13:27 Temperature Pulse Rate 74 Respiratory Rate 29 H Blood Pressure 69/44 L 88/41 L Pulse Oximetry 98 Oxygen Delivery Method Oxygen Flow Rate Fraction of Inspired Oxygen 10/04/23 13:30 10/04/23 13:30 10/04/23 13:35 Temperature Pulse Rate 66 67 Respiratory Rate 23 22 Blood Pressure 84/47 L Pulse Oximetry 95 100 Oxygen Delivery Method Oxygen Flow Rate Fraction of Inspired Oxygen 10/04/23 13:35 10/04/23 13:36 10/04/23 13:36 Temperature Pulse Rate 72 Respiratory Rate 21 Blood Pressure 75/39 L 85/42 L Pulse Oximetry 99 Oxygen Delivery Method Oxygen Flow Rate Fraction of Inspired Oxygen 10/04/23 13:40 10/04/23 13:40 10/04/23 13:46 Temperature 99.5 F Pulse Rate 66 70 Respiratory Rate 26 H Blood Pressure 107/51 L 76/40 L Pulse Oximetry 99 Oxygen Delivery Method Oxygen Flow Rate Fraction of Inspired Oxygen 10/04/23 13:46 10/04/23 13:46 10/04/23 13:47 Temperature Pulse Rate 73 67 Respiratory Rate 38 H 33 H Blood Pressure 62/38 L Pulse Oximetry 89 L 99 Oxygen Delivery Method Oxygen Flow Rate Fraction of Inspired Oxygen 10/04/23 13:47 10/04/23 13:48 10/04/23 13:48 Temperature Pulse Rate 67 Respiratory Rate 20 Blood Pressure 66/43 L 77/38 L Pulse Oximetry 99 Oxygen Delivery Method Oxygen Flow Rate Fraction of Inspired Oxygen 10/04/23 13:51 10/04/23 13:51 10/04/23 13:55 Temperature Pulse Rate 71 74 Respiratory Rate 28 H 32 H Blood Pressure 81/37 L Pulse Oximetry 100 Oxygen Delivery Method Oxygen Flow Rate Fraction of Inspired Oxygen 10/04/23 13:55 10/04/23 14:00 10/04/23 14:06 Temperature Pulse Rate 67 70 Respiratory Rate 21 19 Blood Pressure 76/40 L Pulse Oximetry 100 100 Oxygen Delivery Method Oxygen Flow Rate Fraction of Inspired Oxygen 10/04/23 14:06 10/04/23 14:10 10/04/23 14:10 Temperature Pulse Rate 68 Respiratory Rate 22 Blood Pressure 87/39 L 95/46 L Pulse Oximetry 99 Oxygen Delivery Method Oxygen Flow Rate Fraction of Inspired Oxygen 10/04/23 14:11 10/04/23 14:15 10/04/23 14:15 Temperature 100.2 F H Pulse Rate 68 68 Respiratory Rate 17 Blood Pressure 95/46 L 94/47 L Pulse Oximetry 100 Oxygen Delivery Method Oxygen Flow Rate Fraction of Inspired Oxygen 10/04/23 14:16 10/04/23 14:20 10/04/23 14:20 Temperature Pulse Rate 67 Respiratory Rate 28 H Blood Pressure 94/47 L 90/44 L Pulse Oximetry 100 Oxygen Delivery Method Oxygen Flow Rate Fraction of Inspired Oxygen 10/04/23 14:25 10/04/23 14:25 10/04/23 14:25 Temperature 100.3 F H Pulse Rate 70 70 Respiratory Rate 19 21 Blood Pressure 90/44 L 90/42 L Pulse Oximetry 98 Oxygen Delivery Method Oxygen Flow Rate Fraction of Inspired Oxygen 10/04/23 14:30 10/04/23 14:30 10/04/23 14:35 Temperature Pulse Rate 68 68 Respiratory Rate 22 20 Blood Pressure 96/46 L Pulse Oximetry 99 98 Oxygen Delivery Method Oxygen Flow Rate Fraction of Inspired Oxygen 10/04/23 14:35 10/04/23 14:40 10/04/23 14:40 Temperature Pulse Rate 67 Respiratory Rate 18 Blood Pressure 91/42 L 87/39 L Pulse Oximetry 99 Oxygen Delivery Method Oxygen Flow Rate Fraction of Inspired Oxygen 10/04/23 14:44 10/04/23 14:45 10/04/23 14:45 Temperature 97.2 F L Pulse Rate 68 67 Respiratory Rate 20 24 Blood Pressure 86/39 L 86/39 L Pulse Oximetry 100 Oxygen Delivery Method Oxygen Flow Rate Fraction of Inspired Oxygen 10/04/23 14:50 10/04/23 14:50 10/04/23 14:55 Temperature Pulse Rate 67 67 Respiratory Rate 20 18 Blood Pressure 84/39 L Pulse Oximetry 100 98 Oxygen Delivery Method Oxygen Flow Rate Fraction of Inspired Oxygen 10/04/23 14:55 10/04/23 15:00 10/04/23 15:00 Temperature Pulse Rate 67 Respiratory Rate 19 Blood Pressure 78/42 L 81/39 L Pulse Oximetry 99 Oxygen Delivery Method Oxygen Flow Rate Fraction of Inspired Oxygen 10/04/23 15:05 10/04/23 15:05 10/04/23 15:10 Temperature Pulse Rate 68 70 Respiratory Rate 16 23 Blood Pressure 83/41 L Pulse Oximetry 100 100 Oxygen Delivery Method Oxygen Flow Rate Fraction of Inspired Oxygen 10/04/23 15:10 10/04/23 15:15 10/04/23 15:15 Temperature Pulse Rate 70 Respiratory Rate 19 Blood Pressure 82/55 L 91/43 L Pulse Oximetry 100 Oxygen Delivery Method Oxygen Flow Rate Fraction of Inspired Oxygen 10/04/23 15:20 10/04/23 15:20 10/04/23 15:23 Temperature Pulse Rate 70 Respiratory Rate 31 H Blood Pressure 91/42 L 92/43 L Pulse Oximetry 99 Oxygen Delivery Method Oxygen Flow Rate Fraction of Inspired Oxygen 10/04/23 15:23 10/04/23 15:25 10/04/23 15:25 Temperature Pulse Rate 68 66 Respiratory Rate 23 22 Blood Pressure 90/44 L Pulse Oximetry 100 100 Oxygen Delivery Method Oxygen Flow Rate Fraction of Inspired Oxygen 10/04/23 15:30 10/04/23 15:30 10/04/23 15:33 Temperature Pulse Rate 66 67 Respiratory Rate 27 H 16 Blood Pressure 85/42 L Pulse Oximetry 100 100 Oxygen Delivery Method Oxygen Flow Rate Fraction of Inspired Oxygen 10/04/23 15:33 10/04/23 15:35 10/04/23 15:35 Temperature Pulse Rate 66 Respiratory Rate 17 Blood Pressure 82/36 L 79/37 L Pulse Oximetry 100 Oxygen Delivery Method Oxygen Flow Rate Fraction of Inspired Oxygen 10/04/23 15:37 10/04/23 15:37 10/04/23 15:40 Temperature Pulse Rate 70 68 Respiratory Rate 24 Blood Pressure 81/37 L Pulse Oximetry 100 98 Oxygen Delivery Method Oxygen Flow Rate Fraction of Inspired Oxygen 10/04/23 15:40 10/04/23 15:45 10/04/23 15:45 Temperature Pulse Rate 66 Respiratory Rate 20 Blood Pressure 77/32 L 76/36 L Pulse Oximetry 98 Oxygen Delivery Method Oxygen Flow Rate Fraction of Inspired Oxygen 10/04/23 15:50 10/04/23 15:50 10/04/23 15:51 Temperature Pulse Rate 66 64 Respiratory Rate 25 H 19 Blood Pressure 77/35 L Pulse Oximetry 99 100 Oxygen Delivery Method Oxygen Flow Rate Fraction of Inspired Oxygen 10/04/23 15:51 10/04/23 15:55 10/04/23 15:55 Temperature Pulse Rate 67 Respiratory Rate 18 Blood Pressure 84/39 L 83/37 L Pulse Oximetry 100 Oxygen Delivery Method Oxygen Flow Rate Fraction of Inspired Oxygen 10/04/23 16:00 10/04/23 16:00 10/04/23 16:05 Temperature Pulse Rate 68 69 Respiratory Rate 18 26 H Blood Pressure 84/37 L Pulse Oximetry 100 97 Oxygen Delivery Method Oxygen Flow Rate Fraction of Inspired Oxygen 10/04/23 16:05 10/04/23 16:10 10/04/23 16:10 Temperature Pulse Rate 66 Respiratory Rate 28 H Blood Pressure 80/44 L 88/40 L Pulse Oximetry 99 Oxygen Delivery Method Oxygen Flow Rate Fraction of Inspired Oxygen 10/04/23 16:14 10/04/23 16:14 10/04/23 16:15 Temperature Pulse Rate 69 68 Respiratory Rate 31 H 16 Blood Pressure 81/39 L Pulse Oximetry 100 100 Oxygen Delivery Method Oxygen Flow Rate Fraction of Inspired Oxygen 10/04/23 16:15 10/04/23 16:20 10/04/23 16:20 Temperature Pulse Rate 67 Respiratory Rate 20 Blood Pressure 83/42 L 76/35 L Pulse Oximetry 100 Oxygen Delivery Method Oxygen Flow Rate Fraction of Inspired Oxygen 10/04/23 16:25 10/04/23 16:25 10/04/23 16:28 Temperature Pulse Rate 69 66 Respiratory Rate 24 25 H Blood Pressure 74/36 L Pulse Oximetry 100 100 Oxygen Delivery Method Oxygen Flow Rate Fraction of Inspired Oxygen 10/04/23 16:28 10/04/23 16:30 10/04/23 16:30 Temperature Pulse Rate 68 Respiratory Rate 36 H Blood Pressure 80/40 L 77/39 L 77/38 L Pulse Oximetry 99 Oxygen Delivery Method Room Air Oxygen Flow Rate Fraction of Inspired Oxygen 10/04/23 16:31 10/04/23 16:31 10/04/23 16:32 Temperature Pulse Rate 66 67 Respiratory Rate 36 H 22 Blood Pressure 77/39 L Pulse Oximetry 97 97 Oxygen Delivery Method Room Air Oxygen Flow Rate Fraction of Inspired Oxygen 10/04/23 16:35 10/04/23 16:35 10/04/23 16:39 Temperature Pulse Rate 69 64 Respiratory Rate 20 34 H Blood Pressure 77/35 L Pulse Oximetry 97 97 Oxygen Delivery Method Oxygen Flow Rate Fraction of Inspired Oxygen 10/04/23 16:39 10/04/23 16:40 10/04/23 16:40 Temperature Pulse Rate 66 Respiratory Rate 36 H Blood Pressure 79/38 L 82/39 L Pulse Oximetry 97 Oxygen Delivery Method Oxygen Flow Rate Fraction of Inspired Oxygen 10/04/23 16:46 10/04/23 16:46 10/04/23 16:55 Temperature Pulse Rate 65 80 Respiratory Rate 19 38 H Blood Pressure 85/38 L Pulse Oximetry 97 90 L Oxygen Delivery Method Oxygen Flow Rate Fraction of Inspired Oxygen 10/04/23 16:55 10/04/23 17:00 10/04/23 17:01 Temperature Pulse Rate 65 67 Respiratory Rate 37 H 30 H Blood Pressure 95/54 L 118/37 L Pulse Oximetry 98 95 Oxygen Delivery Method Nasal Cannula Oxygen Flow Rate 3 Fraction of Inspired Oxygen 10/04/23 17:01 10/04/23 17:01 10/04/23 17:03 Temperature 100.3 F H Pulse Rate 66 65 Respiratory Rate 33 H 33 H Blood Pressure 118/37 L 118/37 L Pulse Oximetry 98 Oxygen Delivery Method Oxygen Flow Rate Fraction of Inspired Oxygen 10/04/23 17:05 10/04/23 17:05 10/04/23 17:11 Temperature Pulse Rate 65 68 Respiratory Rate 27 H 31 H Blood Pressure 90/42 L Pulse Oximetry 97 86 L Oxygen Delivery Method Oxygen Flow Rate Fraction of Inspired Oxygen 10/04/23 17:11 10/04/23 17:15 10/04/23 17:15 Temperature Pulse Rate 68 Respiratory Rate 23 Blood Pressure 90/37 L 88/44 L Pulse Oximetry 97 Oxygen Delivery Method Oxygen Flow Rate Fraction of Inspired Oxygen MDM - Chest Pain Lab Data 10/04/23 12:55 10/04/23 12:25 Labs: Lab Results 10/04/23 10/04/23 10/04/23 Range/Units 12:25 12:55 13:04 WBC 14.3 H (4.5-11.0) X10^3/uL RBC 1.95 L (4.0-5.2) X10^6/uL Hgb 6.5 L* 5.9 L* (12.0-16.0) g/dL Hct 19.2 L* 17.8 L* (36-46) % MCV 98.1 (80-100) fL MCH 33.2 (26-34) PG MCHC 33.8 (30-36) % RDW 14.3 (11.6-14.8) % Plt Count 208 (150-400) X10^3/uL Neut % (Auto) 69.8 (50-75) % Lymph % (Auto) 20.4 L (25-40) % [place] % (Auto) 7.7 (3-14) % Eos % (Auto) 1.2 L (2-4) % Baso % (Auto) 0.9 (0-2) % Neut # (Auto) 76115 H (0228-0527) /uL Lymph # (Auto) 2900 (7920-2776) /uL [place] # (Auto) 1100 H (0-900) /uL Eos # (Auto) 200 (0-450) /uL Baso # (Auto) 100 (0-100) /uL ABG Sample Site Right brachial ABG pH 7.37 (7.35-7.45) ABG pCO2 44.4 (35-45) mmHg ABG pO2 183 H (80-100) mmHg ABG HCO3 25 (23-27) mmol/L ABG Total CO2 27 (23-27) mmol/L ABG O2 Saturation 100 (95-100) % ABG Base Excess 0.0 (-2-3) mmol/L FiO2 40 Sodium 137 (137-145) mmol/L Potassium 4.0 (3.4-5.1) mmol/L Chloride 108 H (98-107) mmol/L Carbon Dioxide 27 (22-32) mmol/L BUN 28 H (7-17) mg/dL Creatinine 0.93 (0.52-1.04) mg/dL Estimated GFR > 60 (>60) mL/min BUN/Creatinine Ratio 30.1 H (6-22) Glucose 106 (80-110) mg/dL Lactate 3.7 H (0.7-2.1) mmol/L Calcium 7.8 L (8.4-10.2) mg/dL Total Bilirubin 0.3 (0.2-1.3) mg/dL AST 22 (14-36) IU/L ALT 15 (<35) IU/L Alkaline Phosphatase 71 (38-126) U/L Total Creatine Kinase 35 (30-135) U/L Troponin I < 0.012 (0.01-0.034) ng/mL NT-Pro-B Natriuret Pep 1320 H (<125) pg/mL Total Protein 4.8 L (6.3-8.2) g/dL Albumin 3.0 L (3.5-5.0) g/dL Globulin 1.8 (1.7-4.1) g/dL Albumin/Globulin Ratio 1.7 (1.0-2.8) Lipase 128 (23-300) U/L Procalcitonin 0.128 (<0.5) ng/mL Blood Type O Positive Antibody Screen Negative Crossmatch See Detail 10/04/23 Range/Units 14:35 WBC (4.5-11.0) X10^3/uL RBC (4.0-5.2) X10^6/uL Hgb (12.0-16.0) g/dL Hct (36-46) % MCV (80-100) fL MCH (26-34) PG MCHC (30-36) % RDW (11.6-14.8) % Plt Count (150-400) X10^3/uL Neut % (Auto) (50-75) % Lymph % (Auto) (25-40) % [place] % (Auto) (3-14) % Eos % (Auto) (2-4) % Baso % (Auto) (0-2) % Neut # (Auto) (6869-2744) /uL Lymph # (Auto) (7932-5540) /uL [place] # (Auto) (0-900) /uL Eos # (Auto) (0-450) /uL Baso # (Auto) (0-100) /uL ABG Sample Site ABG pH (7.35-7.45) ABG pCO2 (35-45) mmHg ABG pO2 (80-100) mmHg ABG HCO3 (23-27) mmol/L ABG Total CO2 (23-27) mmol/L ABG O2 Saturation (95-100) % ABG Base Excess (-2-3) mmol/L FiO2 Sodium (137-145) mmol/L Potassium (3.4-5.1) mmol/L Chloride (98-107) mmol/L Carbon Dioxide (22-32) mmol/L BUN (7-17) mg/dL Creatinine (0.52-1.04) mg/dL Estimated GFR (>60) mL/min BUN/Creatinine Ratio (6-22) Glucose (80-110) mg/dL Lactate 1.1 (0.7-2.1) mmol/L Calcium (8.4-10.2) mg/dL Total Bilirubin (0.2-1.3) mg/dL AST (14-36) IU/L ALT (<35) IU/L Alkaline Phosphatase (38-126) U/L Total Creatine Kinase (30-135) U/L Troponin I < 0.012 (0.01-0.034) ng/mL NT-Pro-B Natriuret Pep (<125) pg/mL Total Protein (6.3-8.2) g/dL Albumin (3.5-5.0) g/dL Globulin (1.7-4.1) g/dL Albumin/Globulin Ratio (1.0-2.8) Lipase (23-300) U/L Procalcitonin (<0.5) ng/mL Blood Type Antibody Screen Crossmatch Imaging Data Chest x-ray: Radiologist's Impression: [address] [address] XRay Report Signed Patient: Bernarda Chong MR#: [id number] : 1965 Acct:[id number] Age/Sex: 58 / F Date of Service: 08/01/23 Loc: ICU 231-1 Accession Number: [id number] Procedure: XR chest for PICC 1V Ordering Provider: Harper Jamil MD PROCEDURE: XR CHEST FOR PICC 1V INDICATIONS: line placement TECHNIQUE: One view of the chest was acquired. COMPARISON: [facility], CR, XR CHEST 1V, 08/01/2023, 11:27. . FINDINGS: Patient is rotated Surgical changes and devices: Right-sided catheter is present, tip of which projects over the region of the right brachiocephalic vein. Left-sided pacer is present. Lungs and pleura: Mild patchy bilateral perihilar and basilar reticulonodular pulmonary opacities No pleural effusions or pneumothorax. Mediastinum: Mediastinal contours appear normal. Heart size is enlarged. Bones and chest wall: No suspicious bony lesions. Overlying soft tissues appear unremarkable. IMPRESSION: 1. Limited evaluation secondary to rotation, which limits localization of the catheter, which projects over the region of the brachiocephalic vein. 2. Cardiomegaly. 3. Mild atypical pneumonia versus edema. Dictated by: Ralph Guzman M.D. on 08/01/2023 at 15:14 Approved by: Ralph Guzman M.D. on 08/01/2023 at 15:16 ECG Data Attestation: I personally reviewed and interpreted this ECG as follows: Interpretation: Ventricularly paced rhythm rate of 68 QRS 158 QTC 529. Patient's tele did show some frequent PVCs appear to have a run of about 3 beats and EMS noted frequent PVCs EN route as well. [facility] Narrative Medical decision making narrative: 58-year-old female with history of COPD on 3 L home O2 who presents with complaint of sudden onset shortness of breath and chest pain at home. Per EMS was feeling increasing worse with increasing work of breathing and route was changed to their CPAP and they had concern for hypotension were unable to get access so placed an IO. Patient had about 500 mL EN route with the additional 500 mL upon arrival. She has been persistently somewhat hypotensive, her work of breathing has not been increasing over time. Patient's was afebrile initially, she has not been tachycardic. She was initially quite uncomfortable where the IO has been placed received a dose of fentanyl for this, the minimal improvement. Patient did receive steroids and nebs did have some improvement in her breathing. Patient is in the white count is 14 hemoglobin of 6.5, patient's prior was 14.9 on 08/09/2023, was repeated shortly thereafter confirmed to be at 5.9, platelets are 208. Patient's chemistry shows sodium 137 potassium of 4 chloride of 108 CO2 of 27 BUN 20 with creatinine 0.3, glucose is 1 6 initial lactate was 3.7 did improve to 1.1, calcium 7.8 LFTs were appropriate with a bilirubin of 0.3 AST is are negative, lipase was normal. Troponins less than 0.12 was repeated at 2 hours in his again less than 0.12. BNP was 1320. Procalcitonin 0.128. ABG was 7.37 with pCO2 of 44 PO2 of 183 bicarb 25 40% FiO2 this is after patient was transitioned from [facility] bipap to [facility] bipap. Initially patient had not shared that she had black tarry stools for the past [address] chest abdomen pelvis obtained showed no acute abnormality, mild cardiomegaly. Patient has been persistently hypotensive, she has paced rhythm in the [address]. Patient's received 2 units packed red blood cells have some hypotensive with a pretty significant change in her hemoglobin over the past 2 months any 3rd unit was started. Patient had given verbal consent prior to transfusion. Patient was transitioned off of BiPAP here in the department. Patient also received Protonix [address] Thornton who accepts for admission. Spoke with Dr. Fuentes, general surgery for consult for GI bleed. Critical Care Time Critical Care Time Critical Care Time: Yes Total Critical Care Time: 45 Attestation: The high probability of a clinically significant, sudden or life threatening deterioration of the cardiac system(s) required my full and direct attention, intervention and personal management. The aggregate critical care time was 45 minutes. This time is in addition to time spent performing reported procedures but includes the following: [x] Data Review and interpretation [x] Patient assessment and monitoring of vital signs [x] Documentation [x] Medication orders and management Discharge Plan Departure Patient Disposition: Admitted As Inpatient Clinical Impression: Symptomatic anemia, GI bleed, Dyspnea, Hypotension Admit Date/Time: 10/04/23 17:19 Admit Provider: Jai Thornton
[2023-10-04] MEDS: LORazepam 2 MG/ML INJ 0.5 MG IV ×2 (12:24→18:26)
[2023-10-04] MEDS: methylPREDNISolone 125 MG/2 ML VIAL IV (12:34)
[2023-10-04] MEDS: ALBUTEROL/IPRATROPIUM 3 ML AMPUL INH (12:46)
[2023-10-04 12:48] LABS: Add Manual Diff / Slide Review NO; Basophils Absolute Auto 100 /uL (0-100); Basophils Percent Auto 0.9 % (0-2); Eosinophils Absolute Auto 200 /uL (0-450); Eosinophils Percent Auto 1.2 % (2-4); Lymphocytes Absolute Auto 2900 /uL (1100-4500); Lymphocytes Percent Auto 20.4 % (25-40); Mean Corpuscular HGB Conc 33.8 % (30-36); Mean Corpuscular Hemoglobin 33.2 PG (26-34); Mean Corpuscular Volume 98.1 fL (80-100); Monocytes Absolute Auto 1100 /uL (0-900); Monocytes Percent Auto 7.7 % (3-14); Neutrophils Absolute Auto 10000 /uL (1500-7000); Neutrophils Percent Auto 69.8 % (50-75); Platelet Count 208 X10^3/uL (150-400); Red Blood Cell Count 1.95 X10^6/uL (4.0-5.2); Red Cell Distribution Width 14.3 % (11.6-14.8); White Blood Cell Count 14.3 X10^3/uL (4.5-11.0)
[2023-10-04 12:50] LABS: Hemoglobin 6.5 g/dL (12.0-16.0)
[2023-10-04 12:51] LABS: Hematocrit 19.2 % (36-46)
[2023-10-04 12:58] LABS: Lactate (Lactic Acid) 3.7 mmol/L (0.7-2.1)
[2023-10-04 12:59] LABS: Alanine Aminotransferase 15 IU/L (<35); Albumin Globulin Ratio 1.7 (1.0-2.8); Alkaline Phosphatase 71 U/L (38-126); Aspartate Aminotransferase 22 IU/L (14-36); BUN Creatinine Ratio 30.1 (6-22); Bilirubin Total 0.3 mg/dL (0.2-1.3); Blood Urea Nitrogen 28 mg/dL (7-17); Calcium 7.8 mg/dL (8.4-10.2); Carbon Dioxide 27 mmol/L (22-32); Chloride 108 mmol/L (98-107); Creatine Kinase 35 U/L (30-135); Estimated Glomerular Filt Rate > 60 mL/min (>60); Globulin 1.8 g/dL (1.7-4.1); Glucose 106 mg/dL (80-110); HEMOLYSIS < 15 (0-50); Lipase 128 U/L (23-300); Sodium 137 mmol/L (137-145); Total Protein 4.8 g/dL (6.3-8.2)
[2023-10-04 13:07] LABS: Hematocrit 17.8 % (36-46); Hemoglobin 5.9 g/dL (12.0-16.0)
--- NOTE | 2023-10-04 13:08 | DI.CT.S_ITS ---
PROCEDURE: CT CHEST ABD PEL W CON INDICATIONS: anemia, sob, ? source TECHNIQUE: After the administration of intravenous contrast, 5 mm thick sections acquired from the lung apices to the symphysis. 5 mm coronal and sagittal reformats were performed, with additional 7 mm MIP reformats through the lungs. For radiation dose reduction, the following was used: automated exposure control, adjustment of mA and/or kV according to patient size. COMPARISON: [facility], CT, CT ABDOMEN WITHOUT CONTRAST, 04/13/2023, 14:34. [facility], CT, CT CHEST WO CON, 11/07/2022, 13:05. [facility], CR, XR CHEST FOR PICC 1V, 10/04/2023, 14:33. FINDINGS: Image quality: Excellent. CHEST: Lower Neck: No enlarged lymph nodes. Thyroid: No thyroid nodules which require sonographic follow up, per consensus guidelines. Axillae: No enlarged lymph nodes. Chest Wall: Cardiac pacemaker is seen with pulse generator in the left chest. Right PICC is seen with catheter tip terminating in the superior vena cava. Probable small sebaceous cyst at the midline posterior back at the lower thoracic level (43/2), stable. Lungs and Pleura: No pneumothorax or pleural effusions. No consolidation or suspicious nodules. stable benign calcified nodule in the lateral right upper lobe. Previously seen clustered nodular opacities have resolved. Heart: Heart size is mildly enlarged. No pericardial effusion. Thoracic Vessels: The aorta and pulmonary arteries demonstrate normal size. Mediastinum and Litzy: No enlarged lymph nodes. Esophagus: No wall thickening. No hiatal hernia. ABDOMEN: Liver: Stable circumscribed hypoattenuating lesion in the right hepatic lobe near the dome measuring 2.5 x 1.7 cm, better seen on the current contrast enhanced exam.. Gallbladder: Status postcholecystectomy. Biliary ducts: No biliary dilation. Pancreas: No ductal dilation. Spleen: Size is within normal limits. Adrenal Glands: No adrenal nodules. Kidneys and Ureters: No hydronephrosis. No solid mass. No complex renal cystic lesion which requires follow up. Stomach and Bowel: Normal colonic caliber, without significant wall thickening. Normal appendix. Small bowel loops and stomach are unremarkable. Peritoneum: No abnormal intraperitoneal fluid. No free air. Ventral Wall: No significant ventral hernia. Abdominal Nodes: No retroperitoneal or mesenteric adenopathy by size criteria. Vessels: Aorta and inferior vena cava are normal in size. PELVIS: Pelvic Organs: Status post hysterectomy. Bladder: No bladder wall thickening, accounting for underdistention. Pelvic Nodes: No enlarged lymph nodes. Miscellaneous: No inguinal hernias are seen. Bones: No aggressive osseous abnormality. Degenerative changes are seen in the spine. Old healed right lateral rib fractures. IMPRESSION: 1. No acute abnormality identified in the chest, abdomen, or pelvis. No source for anemia identified. 2. Mild cardiomegaly. Approved by: Juan R Tee M.D. on 10/04/2023 at 17:05
[2023-10-04 13:11] LABS: NT-proBNP (BNP-Adult 18+) 1320 pg/mL (<125); Troponin I < 0.012 ng/mL (0.01-0.034)
[2023-10-04 13:16] LABS: Procalcitonin 0.128 ng/mL (<0.5)
[2023-10-04 13:18] LABS: HCO3 ABG 25 mmol/L (23-27); Oxygen Saturation ABG 100 % (95-100); PCO2 ABG 44.4 mmHg (35-45); PO2 ABG 183 mmHg (80-100); TCO2 ABG 27 mmol/L (23-27); pH ABG 7.37 (7.35-7.45)
[2023-10-04 13:19] LABS: Blood Gas Collection Site Right Brachial; Fractionated Inspired Oxygen 40
--- NOTE | 2023-10-04 13:38 | PC.NURSE ---
Pt arrived to ed via [facility] for increased work of breathing and cp. Granddaughter went to check on pt today and reports that pt's bp was low and pt was having difficulty breathing and has been increasing her home o2 to 5L [place]. EMS called at that time. At the time of arrival, EMS reported that pt's cp began to worse and pt demonstrated significant work of breathing. Pt placed on c-pap and IO placed in left tibia by ems. Pt yelling and crying and c/o 10/10 cp. Granddaughter reports that she and pt had recent trip to [place] where they flew and pt got sick with cold while traveling. Pt used home o2 while traveling and has been not feeling well every since. Pt skin cool and clammy. Pt hypotensive upon arrival. Placed on BiPap in ED. Dr Dacosta at bedside at pt arrival.
[2023-10-04 14:17] LABS: Reflexed Lactate in 2 Hours Y
--- NOTE | 2023-10-04 14:32 | DI.RAD.S_ITS ---
PROCEDURE: XR CHEST FOR PICC 1V INDICATIONS: picc placement COMPARISON: [facility], , XR CHEST FOR PICC 1V, 08/01/2023, 13:57. FINDINGS: PICC was placed by the intravenous therapy team from the right side. Fluoroscopic spot film demonstrates the tip of PICC projecting to the area of proximal SVC. IMPRESSION: Tip of PICC projects to the area of proximal SVC. Dictated by: Marla Dennis M.D. on 10/04/2023 at 15:34 Approved by: Marla Dennis M.D. on 10/04/2023 at 15:34
[2023-10-04 14:56] LABS: Lactate 2HR (Lactic Acid Rflx) 1.1 mmol/L (0.7-2.1)
[2023-10-04] MEDS: PANTOPRAZOLE 40 MG VIAL 80 MG IV (15:14)
[2023-10-04 15:30] LABS: Troponin I < 0.012 ng/mL (0.01-0.034)
--- NOTE | 2023-10-04 16:18 | PC.NURSE ---
[address] with RN & RT. Pt became hypotensive after ct. Dr Dacosta notified of pt status. Pt a&ox4. Remains on bipap.
--- NOTE | 2023-10-04 16:43 | PC.NURSE ---
Rt removed bipap. Pt o2 sat remains 94-95% on RA. RR 25. Bilateral crackles on auscultation.
--- NOTE | 2023-10-04 17:13 | PC.NURSE ---
At 1444 in [facility], temp of 97.3f is not correct, Unable to edit in [facility]. Pts correct Temp is 100.3f at 1444.
[2023-10-04] MEDS: ACETAMINOPHEN IV 1,000 MG/100 ML VIAL 400 MG IV (17:33)
--- NOTE | 2023-10-04 17:36 | P.HP_ITS ---
History of Present Illness History of Present Illness Date Patient Seen: 10/04/23 Time Patient Seen: 17:36 Chief complaint: SOB/Chest Pain Narrative: From ED doctor: 58-year-old female history of COPD on 3 L home O2, congestive heart failure with an EF of 25% in August of 2022 left ventricular wall thickness was upper limits of normal has a pacemaker in the right ventricle there was no pericardial effusion or pleural effusion. Patient presents with complaint of recent upper respiratory infection with sudden increase in shortness of breath, chest pain. Patient per EMS we will often get pneumonia when she gets sick. No reported fevers, patient has quite a bit of pain in her left lower extremity where they placed an IO in transport in has difficulty focusing to give answers. Per EMS patient was 95% on her usual 3 L upon arrival, they noted increased work of breathing and transport so they placed her on CPAP because of this they were attempting to obtain access in her blood pressure had a diastolic in the 90s they wish to start fluids and could not find any IV placement and placed an IO for hypotension. They note that her MAP was never below 65. Patient's allergies include shellfish, iodine and doxycycline. Updates: She adds that she has had epigastric abdominal pain for several days which is quite severe and increases with deep breathing. She denies any substernal sustained chest pain. She also denies nausea or hematemesis. She was quite anxious and notes that this is typical when she was in the hospital. She was recently in [place] and has had some URI symptoms including rhinorrhea and a dry cough. She denies taking aspirin, Plavix, or nonsteroidals. She has no history of melena, GI bleeding, or ulcers. She received 2 units of blood in the emergency department in his receiving a 3rd upon arrival to the CCU. Her blood pressure is improved. She is 1+ leg edema. [facility] Medical History CAD (coronary artery disease) Congestive heart failure COPD (chronic obstructive pulmonary disease) Surgical History AICD (automatic cardioverter/defibrillator) present H/O heart artery stent Social History household members: spouse and none lives independently: Yes Smoking Status: Current every day smoker alcohol intake: current Meds Home Medications and Allergies Home Medications Medication Instructions Recorded Confirmed Type albuterol sulfate 90 mcg/actuation 2 puff inhalation QID PRN 07/17/22 08/01/23 History aerosol inhaler (Ventolin HFA) Shortness Of Breath amiodarone 200 mg tablet 100 mg PO DAILY 07/17/22 08/01/23 History apixaban 5 mg tablet (Eliquis) 5 mg PO BID 07/17/22 08/01/23 History albuterol sulfate 90 mcg/actuation 2 inh inhalation Q4H PRN Shortness 08/29/22 08/01/23 History breath activated powder inhaler Of Breath (ProAir RespiClick) dextromethorphan-guaifenesin 30 1 tab PO BEDTIME 08/29/22 08/01/23 History mg-600 mg tablet extended oefdiuv70 hr (Mucinex DM) methocarbamol 500 mg tablet 500 mg PO TID PRN Muscle Spasm 08/29/22 08/01/23 History metoprolol succinate 25 mg 25 mg PO DAILY 08/29/22 08/01/23 History tablet,extended release 24 hr multivitamin 1 tab PO DAILY 08/29/22 08/01/23 History promethazine 25 mg tablet 25 mg PO Q6H PRN Nausea 08/29/22 08/01/23 History fluticasone propionate 50 2 spray intranasal BID 11/07/22 08/01/23 History mcg/actuation nasal spray,suspension albuterol sulfate 2.5 mg/3 mL 2.5 mg inhalation 4XD PRN wheezing 08/01/23 08/01/23 History (0.083 %) solution for nebulization budesonide 0.5 mg/2 mL suspension 0.5 mg inhalation BID 08/01/23 08/01/23 History for nebulization empagliflozin 10 mg tablet 10 mg PO DAILY 08/01/23 08/01/23 History (Jardiance) furosemide 40 mg tablet 80 mg PO DAILY 08/01/23 08/01/23 History mexiletine 150 mg capsule 150 mg PO BID 08/01/23 08/01/23 History montelukast 10 mg tablet 10 mg PO BEDTIME 08/01/23 08/01/23 History sacubitril 24 mg-valsartan 26 mg 1 tab PO BID 08/01/23 08/01/23 History tablet (Entresto) hydrocodone 5 mg-acetaminophen 325 1 tab PO Q6H PRN Pain (Scale Score 08/09/23 Rx mg tablet 1-3) 7 days #20 tabs prednisone 20 mg tablet See Rx Instructions .Route 08/09/23 Rx .COMPLEX #10 tabs Allergies Allergy/AdvReac Type Severity Reaction Status Date / Time bee pollen Allergy Severe Anaphylaxis Verified 08/01/23 11:23 Fish Containing Products Allergy Severe Anaphylaxis Verified 08/01/23 11:23 shellfish derived Allergy Severe Anaphylaxis Verified 08/01/23 11:23 codeine Allergy Verified 08/01/23 11:23 erythromycin base Allergy Verified 08/01/23 11:23 iodine Allergy Rash Verified 08/01/23 11:23 latex Allergy Rash Verified 08/01/23 11:23 pamabrom [From Midol] Allergy Verified 08/01/23 11:23 doxycycline AdvReac Vomiting Verified 08/01/23 11:23 Review of Systems Review of Systems Narrative: All else reviewed and otherwise unremarkable except as noted in the history and physical. Exam Vital Signs (past 8 hours): - 10/04/23 12:13 10/04/23 12:16 10/04/23 13:10 Temperature 98.2 F Pulse Rate 109 H 68 Respiratory Rate 24 Blood Pressure 119/57 L 106/72 Pulse Oximetry 91 100 Oxygen Delivery Method CPAP BiPAP Oxygen Flow Rate Fraction of Inspired Oxygen 40 10/04/23 13:15 10/04/23 13:15 10/04/23 13:20 Temperature Pulse Rate 65 63 Respiratory Rate 23 18 Blood Pressure 79/40 L Pulse Oximetry 100 99 Oxygen Delivery Method Oxygen Flow Rate Fraction of Inspired Oxygen 10/04/23 13:20 10/04/23 13:10/04/23 13:26 Temperature 99.5 F Pulse Rate 64 67 Respiratory Rate 25 H 25 H Blood Pressure 81/43 L 69/44 L Pulse Oximetry 93 Oxygen Delivery Method Oxygen Flow Rate Fraction of Inspired Oxygen 10/04/23 13:10/04/23 13:27 10/04/23 13:27 Temperature Pulse Rate 74 Respiratory Rate 29 H Blood Pressure 69/44 L 88/41 L Pulse Oximetry 98 Oxygen Delivery Method Oxygen Flow Rate Fraction of Inspired Oxygen 10/04/23 13:10/04/23 13:30 10/04/23 13:35 Temperature Pulse Rate 66 67 Respiratory Rate 23 22 Blood Pressure 84/47 L Pulse Oximetry 95 100 Oxygen Delivery Method Oxygen Flow Rate Fraction of Inspired Oxygen 10/04/23 13:35 10/04/23 13:36 10/04/23 13:36 Temperature Pulse Rate 72 Respiratory Rate 21 Blood Pressure 75/39 L 85/42 L Pulse Oximetry 99 Oxygen Delivery Method Oxygen Flow Rate Fraction of Inspired Oxygen 10/04/23 13:40 10/04/23 13:40 10/04/23 13:46 Temperature 99.5 F Pulse Rate 66 70 Respiratory Rate 26 H Blood Pressure 107/51 L 76/40 L Pulse Oximetry 99 Oxygen Delivery Method Oxygen Flow Rate Fraction of Inspired Oxygen 10/04/23 13:46 10/04/23 13:46 10/04/23 13:47 Temperature Pulse Rate 73 67 Respiratory Rate 38 H 33 H Blood Pressure 62/38 L Pulse Oximetry 89 L 99 Oxygen Delivery Method Oxygen Flow Rate Fraction of Inspired Oxygen 10/04/23 13:47 10/04/23 13:48 10/04/23 13:48 Temperature Pulse Rate 67 Respiratory Rate 20 Blood Pressure 66/43 L 77/38 L Pulse Oximetry 99 Oxygen Delivery Method Oxygen Flow Rate Fraction of Inspired Oxygen 10/04/23 13:51 10/04/23 13:51 10/04/23 13:55 Temperature Pulse Rate 71 74 Respiratory Rate 28 H 32 H Blood Pressure 81/37 L Pulse Oximetry 100 Oxygen Delivery Method Oxygen Flow Rate Fraction of Inspired Oxygen 10/04/23 13:55 10/04/23 14:00 10/04/23 14:06 Temperature Pulse Rate 67 70 Respiratory Rate 21 19 Blood Pressure 76/40 L Pulse Oximetry 100 100 Oxygen Delivery Method Oxygen Flow Rate Fraction of Inspired Oxygen 10/04/23 14:06 10/04/23 14:10 10/04/23 14:10 Temperature Pulse Rate 68 Respiratory Rate 22 Blood Pressure 87/39 L 95/46 L Pulse Oximetry 99 Oxygen Delivery Method Oxygen Flow Rate Fraction of Inspired Oxygen 10/04/23 14:11 10/04/23 14:15 10/04/23 14:15 Temperature 100.2 F H Pulse Rate 68 68 Respiratory Rate 17 Blood Pressure 95/46 L 94/47 L Pulse Oximetry 100 Oxygen Delivery Method Oxygen Flow Rate Fraction of Inspired Oxygen 10/04/23 14:16 10/04/23 14:20 10/04/23 14:20 Temperature Pulse Rate 67 Respiratory Rate 28 H Blood Pressure 94/47 L 90/44 L Pulse Oximetry 100 Oxygen Delivery Method Oxygen Flow Rate Fraction of Inspired Oxygen 10/04/23 14:25 10/04/23 14:25 10/04/23 14:25 Temperature 100.3 F H Pulse Rate 70 70 Respiratory Rate 19 21 Blood Pressure 90/44 L 90/42 L Pulse Oximetry 98 Oxygen Delivery Method Oxygen Flow Rate Fraction of Inspired Oxygen 10/04/23 14:30 10/04/23 14:30 10/04/23 14:35 Temperature Pulse Rate 68 68 Respiratory Rate 22 20 Blood Pressure 96/46 L Pulse Oximetry 99 98 Oxygen Delivery Method Oxygen Flow Rate Fraction of Inspired Oxygen 10/04/23 14:35 10/04/23 14:40 10/04/23 14:40 Temperature Pulse Rate 67 Respiratory Rate 18 Blood Pressure 91/42 L 87/39 L Pulse Oximetry 99 Oxygen Delivery Method Oxygen Flow Rate Fraction of Inspired Oxygen 10/04/23 14:44 10/04/23 14:45 10/04/23 14:45 Temperature 97.2 F L Pulse Rate 68 67 Respiratory Rate 20 24 Blood Pressure 86/39 L 86/39 L Pulse Oximetry 100 Oxygen Delivery Method Oxygen Flow Rate Fraction of Inspired Oxygen 10/04/23 14:50 10/04/23 14:50 10/04/23 14:55 Temperature Pulse Rate 67 67 Respiratory Rate 20 18 Blood Pressure 84/39 L Pulse Oximetry 100 98 Oxygen Delivery Method Oxygen Flow Rate Fraction of Inspired Oxygen 10/04/23 14:55 10/04/23 15:00 10/04/23 15:00 Temperature Pulse Rate 67 Respiratory Rate 19 Blood Pressure 78/42 L 81/39 L Pulse Oximetry 99 Oxygen Delivery Method Oxygen Flow Rate Fraction of Inspired Oxygen 10/04/23 15:05 10/04/23 15:05 10/04/23 15:10 Temperature Pulse Rate 68 70 Respiratory Rate 16 23 Blood Pressure 83/41 L Pulse Oximetry 100 100 Oxygen Delivery Method Oxygen Flow Rate Fraction of Inspired Oxygen 10/04/23 15:10 10/04/23 15:15 10/04/23 15:15 Temperature Pulse Rate 70 Respiratory Rate 19 Blood Pressure 82/55 L 91/43 L Pulse Oximetry 100 Oxygen Delivery Method Oxygen Flow Rate Fraction of Inspired Oxygen 10/04/23 15:20 10/04/23 15:20 10/04/23 15:23 Temperature Pulse Rate 70 Respiratory Rate 31 H Blood Pressure 91/42 L 92/43 L Pulse Oximetry 99 Oxygen Delivery Method Oxygen Flow Rate Fraction of Inspired Oxygen 10/04/23 15:23 10/04/23 15:25 10/04/23 15:25 Temperature Pulse Rate 68 66 Respiratory Rate 23 22 Blood Pressure 90/44 L Pulse Oximetry 100 100 Oxygen Delivery Method Oxygen Flow Rate Fraction of Inspired Oxygen 10/04/23 15:30 10/04/23 15:30 10/04/23 15:33 Temperature Pulse Rate 66 67 Respiratory Rate 27 H 16 Blood Pressure 85/42 L Pulse Oximetry 100 100 Oxygen Delivery Method Oxygen Flow Rate Fraction of Inspired Oxygen 10/04/23 15:33 10/04/23 15:35 10/04/23 15:35 Temperature Pulse Rate 66 Respiratory Rate 17 Blood Pressure 82/36 L 79/37 L Pulse Oximetry 100 Oxygen Delivery Method Oxygen Flow Rate Fraction of Inspired Oxygen 10/04/23 15:37 10/04/23 15:37 10/04/23 15:40 Temperature Pulse Rate 70 68 Respiratory Rate 24 Blood Pressure 81/37 L Pulse Oximetry 100 98 Oxygen Delivery Method Oxygen Flow Rate Fraction of Inspired Oxygen 10/04/23 15:40 10/04/23 15:45 10/04/23 15:45 Temperature Pulse Rate 66 Respiratory Rate 20 Blood Pressure 77/32 L 76/36 L Pulse Oximetry 98 Oxygen Delivery Method Oxygen Flow Rate Fraction of Inspired Oxygen 10/04/23 15:50 10/04/23 15:50 10/04/23 15:51 Temperature Pulse Rate 66 64 Respiratory Rate 25 H 19 Blood Pressure 77/35 L Pulse Oximetry 99 100 Oxygen Delivery Method Oxygen Flow Rate Fraction of Inspired Oxygen 10/04/23 15:51 10/04/23 15:55 10/04/23 15:55 Temperature Pulse Rate 67 Respiratory Rate 18 Blood Pressure 84/39 L 83/37 L Pulse Oximetry 100 Oxygen Delivery Method Oxygen Flow Rate Fraction of Inspired Oxygen 10/04/23 16:00 10/04/23 16:00 10/04/23 16:05 Temperature Pulse Rate 68 69 Respiratory Rate 18 26 H Blood Pressure 84/37 L Pulse Oximetry 100 97 Oxygen Delivery Method Oxygen Flow Rate Fraction of Inspired Oxygen 10/04/23 16:05 10/04/23 16:10 10/04/23 16:10 Temperature Pulse Rate 66 Respiratory Rate 28 H Blood Pressure 80/44 L 88/40 L Pulse Oximetry 99 Oxygen Delivery Method Oxygen Flow Rate Fraction of Inspired Oxygen 10/04/23 16:14 10/04/23 16:14 10/04/23 16:15 Temperature Pulse Rate 69 68 Respiratory Rate 31 H 16 Blood Pressure 81/39 L Pulse Oximetry 100 100 Oxygen Delivery Method Oxygen Flow Rate Fraction of Inspired Oxygen 10/04/23 16:15 10/04/23 16:20 10/04/23 16:20 Temperature Pulse Rate 67 Respiratory Rate 20 Blood Pressure 83/42 L 76/35 L Pulse Oximetry 100 Oxygen Delivery Method Oxygen Flow Rate Fraction of Inspired Oxygen 10/04/23 16:25 10/04/23 16:25 10/04/23 16:28 Temperature Pulse Rate 69 66 Respiratory Rate 24 25 H Blood Pressure 74/36 L Pulse Oximetry 100 100 Oxygen Delivery Method Oxygen Flow Rate Fraction of Inspired Oxygen 10/04/23 16:28 10/04/23 16:30 10/04/23 16:30 Temperature Pulse Rate 68 Respiratory Rate 36 H Blood Pressure 80/40 L 77/39 L 77/38 L Pulse Oximetry 99 Oxygen Delivery Method Room Air Oxygen Flow Rate Fraction of Inspired Oxygen 10/04/23 16:31 10/04/23 16:31 10/04/23 16:32 Temperature Pulse Rate 66 67 Respiratory Rate 36 H 22 Blood Pressure 77/39 L Pulse Oximetry 97 97 Oxygen Delivery Method Room Air Oxygen Flow Rate Fraction of Inspired Oxygen 10/04/23 16:35 10/04/23 16:35 10/04/23 16:39 Temperature Pulse Rate 69 64 Respiratory Rate 20 34 H Blood Pressure 77/35 L Pulse Oximetry 97 97 Oxygen Delivery Method Oxygen Flow Rate Fraction of Inspired Oxygen 10/04/23 16:39 10/04/23 16:40 10/04/23 16:40 Temperature Pulse Rate 66 Respiratory Rate 36 H Blood Pressure 79/38 L 82/39 L Pulse Oximetry 97 Oxygen Delivery Method Oxygen Flow Rate Fraction of Inspired Oxygen 10/04/23 16:46 10/04/23 16:46 10/04/23 16:55 Temperature Pulse Rate 65 80 Respiratory Rate 19 38 H Blood Pressure 85/38 L Pulse Oximetry 97 90 L Oxygen Delivery Method Oxygen Flow Rate Fraction of Inspired Oxygen 10/04/23 16:55 05/30/24 17:01 10/04/23 17:03 Temperature 100.3 F H Pulse Rate 67 65 Respiratory Rate 30 H 33 H Blood Pressure 95/54 L 118/37 L 118/37 L Pulse Oximetry 95 Oxygen Delivery Method Nasal Cannula Oxygen Flow Rate 3 Fraction of Inspired Oxygen 10/04/23 17:22 Temperature 100 F H Pulse Rate 79 Respiratory Rate 24 Blood Pressure 86/49 L Pulse Oximetry Oxygen Delivery Method Oxygen Flow Rate Fraction of Inspired Oxygen Fraction of Inspired Oxygen 30 Oxygen Delivery Method Nasal Cannula Oxygen Flow Rate 3 Narrative Exam Narrative: NAD, alert and oriented, fluent speech, very anxious and tearful. Obese. Normocephalic skull, EOMI, anicteric sclera, symmetric pupils. Oropharynx unremarkable, no droop. Neck supple, midline trachea, no adenopathy. Lungs clear, normal rate and effort. Heart regular, no murmur gallop or rub. Abdomen is soft, non distended and non tender when she was distracted. Extremities are free of edema. Skin is free of rash or lesions. Joints are not swollen or deformed. Judgment appears to be normal. Objective ECG Impression: Ventricularly paced rhythm rate of 68 QRS 158 QTC 529. Imaging Chest x-ray: Radiologist's impression: 1. Limited evaluation secondary to rotation, which limits localization of the catheter, which projects over the region of the brachiocephalic vein. 2. Cardiomegaly. 3. Mild atypical pneumonia versus edema. CT scan - abdomen: Radiologist's impression: 1. No acute abnormality identified in the chest, abdomen, or pelvis. No source for anemia identified. 2. Mild cardiomegaly. Labs 10/04/23 12:55 10/04/23 12:25 Labs: Laboratory Results - last 24 hr 10/04/23 10/04/23 10/04/23 12:25 12:55 13:04 WBC 14.3 H RBC 1.95 L Hgb 6.5 L* 5.9 L* Hct 19.2 L* 17.8 L* MCV 98.1 MCH 33.2 MCHC 33.8 RDW 14.3 Plt Count 208 Neut % (Auto) 69.8 Lymph % (Auto) 20.[address] % (Auto) 7.7 Eos % (Auto) 1.2 L Baso % (Auto) 0.9 Neut # (Auto) 81734 H Lymph # (Auto) 2900 [facility] # (Auto) 1100 H Eos # (Auto) 200 Baso # (Auto) 100 ABG Sample Site Right brachial ABG pH 7.37 ABG pCO2 44.4 ABG pO2 183 H ABG HCO3 25 ABG Total CO2 27 ABG O2 Saturation 100 ABG Base Excess 0.0 FiO2 40 Sodium 137 Potassium 4.0 Chloride 108 H Carbon Dioxide 27 BUN 28 H Creatinine 0.93 Estimated GFR > 60 BUN/Creatinine Ratio 30.1 H Glucose 106 Lactate 3.7 H Calcium 7.8 L Total Bilirubin 0.3 AST 22 ALT 15 Alkaline Phosphatase 71 Total Creatine Kinase 35 Troponin I < 0.012 NT-Pro-B Natriuret Pep 1320 H Total Protein 4.8 L Albumin 3.0 L Globulin 1.8 Albumin/Globulin Ratio 1.7 Lipase 128 Procalcitonin 0.128 Blood Type O Positive Antibody Screen Negative Crossmatch See Detail 10/04/23 14:35 WBC RBC Hgb Hct MCV MCH MCHC RDW Plt Count Neut % (Auto) Lymph % (Auto) [facility] % (Auto) Eos % (Auto) Baso % (Auto) Neut # (Auto) Lymph # (Auto) [facility] # (Auto) Eos # (Auto) Baso # (Auto) ABG Sample Site ABG pH ABG pCO2 ABG pO2 ABG HCO3 ABG Total CO2 ABG O2 Saturation ABG Base Excess FiO2 Sodium Potassium Chloride Carbon Dioxide BUN Creatinine Estimated GFR BUN/Creatinine Ratio Glucose Lactate 1.1 Calcium Total Bilirubin AST ALT Alkaline Phosphatase Total Creatine Kinase Troponin I < 0.012 NT-Pro-B Natriuret Pep Total Protein Albumin Globulin Albumin/Globulin Ratio Lipase Procalcitonin Blood Type Antibody Screen Crossmatch Assessment & Plan Assessment & Plan narrative: 1. Acute blood loss anemia, present on admission and active. 2. Hemorrhagic shock, present on admission and improved. 3. GI bleed with melena, present on admission and active. 4. COPD, present on admission and active. 5. Chronic hypoxic respiratory failure, present on admission and active. 6. CAD and remote [place], stable. Chronic systolic heart failure (LVEF 25%), stable. PPM, stable. DM 2 (oral meds), stable. Calss 3 Obesity, stable. PLAN: -Protonix infusion -acute 4 hour H and H with blood support as needed. She received 2 units in the emergency department. -trend troponins. -telemetry. -GI was consulted by the emergency physician for upper endoscopy. -she was at risk for fluid overload with chronic systolic heart failure. Low threshold for diuresis with her blood products. She is full resuscitation. There is a 2 midnight expectation for medical necessity of hospital services. Inpatient status. Time Spent With Patient Time with patient: 30 to 49 minutes with 50% spent counseling/coordinating care Quality MIPS - Admit I confirm the patient?s Advance Care Plan is present, Code status is documented, Surrogate decision maker is in patient?s record [If Yes, STOP here]: Yes MIPS - Meds 'Current medications' to include all prescriptions, [id number] products, herbals, cannabis/cannabidiol products, and vitamin/mineral/dietary (nutritional) supplements. I have utilized all available resources to obtain, update, or review the patient?s current medications. [If Yes, STOP here]: Yes
[2023-10-04] MEDS: HYDROMORPHONE 0.5 MG INJ IV (18:25)
[2023-10-04 20:35] LABS: Lactate (Lactic Acid) 2.7 mmol/L (0.7-2.1)
[2023-10-04 20:46] LABS: Troponin I < 0.012 ng/mL (0.01-0.034)
[2023-10-04 21:47] LABS: Adenovirus Not Detected (Not Detect); B. parapertussis Not Detected (Not Detecte); Bordetella pertussis Not Detected (Not Detect); Chlamydophila pneumoniae Not Detected (Not Detect); Coronavirus 229E Not Detected (Not Detect); Coronavirus HKU1 Not Detected (Not Detect); Coronavirus NL 63 Not Detected (Not Detect); Coronavirus OC43 Not Detected (Not Detect); Human Metapneumovirus Not Detected (Not Detect); Human Rhinovirus/Enterovirus Not Detected (Not Detect); Influenza A Not Detected (Not Detect); Influenza B Not Detected (Not Detect); Mycoplasma pneumoniae Not Detected (Not Detect); Parainfluenza Virus 1 Not Detected (Not Detect); Parainfluenza Virus 2 Not Detected (Not Detect); Parainfluenza Virus 3 Not Detected (Not Detect); Parainfluenza Virus 4 Not Detected (Not Detect); Respiratory Syncytial Virus Not Detected (Not Detect); SARS- CoV-2 Not Detected (Not Detecte)
[2023-10-04 21:55] LABS: Reflexed Lactate in 2 Hours Y
[2023-10-04 22:12] LABS: Hematocrit 24.7 % (36-46); Hemoglobin 8.2 g/dL (12.0-16.0)
[2023-10-04 22:17] LABS: MRSA (Nasal) PCR NOT DETECTED (Not Detect)
[2023-10-04 22:22] LABS: Lactate 2HR (Lactic Acid Rflx) 2.6 mmol/L (0.7-2.1)
[2023-10-05] VITALS (34 sets, daily range): BP systolic 82–119; BP diastolic 41–66; PULSE 61–80; RESP 15–35; TEMP 36.1–37.4; O2SAT 93–100
[2023-10-05] MEDS: PANTOPRAZOLE 40 MG VIAL IV ×3 (00:18→23:57)
[2023-10-05 02:24] LABS: Hematocrit 24.9 % (36-46); Hemoglobin 8.4 g/dL (12.0-16.0)
[2023-10-05 05:15] LABS: Add Manual Diff / Slide Review NO; Basophils Absolute Auto 100 /uL (0-100); Basophils Percent Auto 0.7 % (0-2); Eosinophils Absolute Auto 300 /uL (0-450); Eosinophils Percent Auto 3.3 % (2-4); Hematocrit 24.1 % (36-46); Hemoglobin 8.3 g/dL (12.0-16.0); Lymphocytes Absolute Auto 1600 /uL (1100-4500); Lymphocytes Percent Auto 15.9 % (25-40); Mean Corpuscular HGB Conc 34.3 % (30-36); Mean Corpuscular Hemoglobin 32.2 PG (26-34); Mean Corpuscular Volume 93.7 fL (80-100); Monocytes Absolute Auto 800 /uL (0-900); Neutrophils Absolute Auto 7200 /uL (1500-7000); Neutrophils Percent Auto 72.1 % (50-75); Platelet Count 165 X10^3/uL (150-400); Red Blood Cell Count 2.57 X10^6/uL (4.0-5.2); Red Cell Distribution Width 16.7 % (11.6-14.8)
[2023-10-05 06:01] LABS: BUN Creatinine Ratio 18.4 (6-22); Blood Urea Nitrogen 18 mg/dL (7-17); Carbon Dioxide 30 mmol/L (22-32); Chloride 108 mmol/L (98-107); Estimated Glomerular Filt Rate > 60 mL/min (>60); Glucose 95 mg/dL (80-110); HEMOLYSIS < 15 (0-50); Potassium 4.2 mmol/L (3.4-5.1); Sodium 137 mmol/L (137-145)
--- NOTE | 2023-10-05 08:06 | PM.PN.1 ---
Subjective Subjective Interval history: Hemoglobin improved, no bowel movements overnight. She slept well. She was a little short of breath. Dr. Sandhu, of surgery, felt that the risks of EGD were greater than the benefits given her clinical stability and wants to defer for the time being and monitor. Exam Vital Signs (past 8 hours): - 10/05/23 00:21 10/05/23 00:21 10/05/23 00:30 Temperature Pulse Rate 62 68 Respiratory Rate 23 28 H Blood Pressure 94/49 L Pulse Oximetry 99 98 Oxygen Delivery Method Oxygen Flow Rate 10/05/23 00:44 10/05/23 00:44 10/05/23 00:52 Temperature Pulse Rate 71 66 Respiratory Rate 24 20 Blood Pressure 101/62 Pulse Oximetry 100 97 Oxygen Delivery Method Oxygen Flow Rate 10/05/23 00:52 10/05/23 01:00 10/05/23 01:00 Temperature Pulse Rate 61 Respiratory Rate 19 Blood Pressure 107/53 L 89/50 L Pulse Oximetry 100 Oxygen Delivery Method Oxygen Flow Rate 2 10/05/23 01:30 10/05/23 02:00 10/05/23 02:00 Temperature Pulse Rate 67 66 Respiratory Rate 18 20 Blood Pressure 89/49 L Pulse Oximetry 94 96 Oxygen Delivery Method Oxygen Flow Rate 2 10/05/23 03:00 10/05/23 04:00 10/05/23 04:00 Temperature Pulse Rate 66 Respiratory Rate 19 Blood Pressure 109/52 L 94/52 L Pulse Oximetry 99 Oxygen Delivery Method Oximask Oxygen Flow Rate 2 10/05/23 04:00 10/05/23 05:00 10/05/23 05:00 Temperature 97.3 F L Pulse Rate 66 67 Respiratory Rate 21 20 Blood Pressure 92/45 L Pulse Oximetry 98 95 Oxygen Delivery Method Oxygen Flow Rate 2 2 10/05/23 06:00 10/05/23 06:00 Temperature Pulse Rate 64 Respiratory Rate 20 Blood Pressure 91/46 L Pulse Oximetry 93 Oxygen Delivery Method Oxygen Flow Rate 2 Fraction of Inspired Oxygen 30 Oxygen Delivery Method Oximask Oxygen Flow Rate 2 Narrative Exam Narrative: NAD, alert and oriented. Fluent speech. Lungs are clear, normal rate and effort. On O2, mask. Crackles anterior. Heart is regular, no murmur gallop or rub. Abdomen is soft, non distended. Extremities are free of edema. Objective Labs 10/05/23 05:03 10/05/23 05:03 Labs: Laboratory Results - last 24 hr 10/04/23 10/04/23 10/04/23 12:25 12:55 13:04 WBC 14.3 H RBC 1.95 L Hgb 6.5 L* 5.9 L* Hct 19.2 L* 17.8 L* MCV 98.1 MCH 33.2 MCHC 33.8 RDW 14.3 Plt Count 208 Neut % (Auto) 69.8 Lymph % (Auto) 20.4 L [place] % (Auto) 7.7 Eos % (Auto) 1.2 L Baso % (Auto) 0.9 Neut # (Auto) 29209 H Lymph # (Auto) 2900 [place] # (Auto) 1100 H Eos # (Auto) 200 Baso # (Auto) 100 ABG Sample Site Right brachial ABG pH 7.37 ABG pCO2 44.4 ABG pO2 183 H ABG HCO3 25 ABG Total CO2 27 ABG O2 Saturation 100 ABG Base Excess 0.0 FiO2 40 Sodium 137 Potassium 4.0 Chloride 108 H Carbon Dioxide 27 BUN 28 H Creatinine 0.93 Estimated GFR > 60 BUN/Creatinine Ratio 30.1 H Glucose 106 Lactate 3.7 H Calcium 7.8 L Total Bilirubin 0.3 AST 22 ALT 15 Alkaline Phosphatase 71 Total Creatine Kinase 35 Troponin I < 0.012 NT-Pro-B Natriuret Pep 1320 H Total Protein 4.8 L Albumin 3.0 L Globulin 1.8 Albumin/Globulin Ratio 1.7 Lipase 128 Procalcitonin 0.128 Nasal Screen MRSA (PCR) Chlamy pneumoniae PCR Adenovirus (PCR) B.parapertussis DNA PCR Coronavirus OC43 (PCR) Coronavirus HKU1 (PCR) Coronavirus 229E (PCR) SARS-CoV-2 (PCR) Coronavirus NL63 (PCR) Human Metapneumovir PCR Influenza Type A (PCR) Influenza Type B (PCR) M. pneumoniae (PCR) Parainfluenza 1 (PCR) Parainfluenza 2 (PCR) Parainfluenza 3 (PCR) Parainfluenza 4 (PCR) RSV (PCR) Entero/Rhino (PCR) Blood Type O Positive Antibody Screen Negative Crossmatch See Detail 10/04/23 10/04/23 10/04/23 14:35 18:15 20:12 WBC RBC Hgb Hct MCV MCH MCHC RDW Plt Count Neut % (Auto) Lymph % (Auto) [place] % (Auto) Eos % (Auto) Baso % (Auto) Neut # (Auto) Lymph # (Auto) [place] # (Auto) Eos # (Auto) Baso # (Auto) ABG Sample Site ABG pH ABG pCO2 ABG pO2 ABG HCO3 ABG Total CO2 ABG O2 Saturation ABG Base Excess FiO2 Sodium Potassium Chloride Carbon Dioxide BUN Creatinine Estimated GFR BUN/Creatinine Ratio Glucose Lactate 1.1 2.7 H Calcium Total Bilirubin AST ALT Alkaline Phosphatase Total Creatine Kinase Troponin I < 0.012 < 0.012 NT-Pro-B Natriuret Pep Total Protein Albumin Globulin Albumin/Globulin Ratio Lipase Procalcitonin Nasal Screen MRSA (PCR) Not detected Chlamy pneumoniae PCR Not detected Adenovirus (PCR) Not detected B.parapertussis DNA PCR Not detected Coronavirus OC43 (PCR) Not detected Coronavirus HKU1 (PCR) Not detected Coronavirus 229E (PCR) Not detected SARS-CoV-2 (PCR) Not detected Coronavirus NL63 (PCR) Not detected Human Metapneumovir PCR Not detected Influenza Type A (PCR) Not detected Influenza Type B (PCR) Not detected M. pneumoniae (PCR) Not detected Parainfluenza 1 (PCR) Not detected Parainfluenza 2 (PCR) Not detected Parainfluenza 3 (PCR) Not detected Parainfluenza 4 (PCR) Not detected RSV (PCR) Not detected Entero/Rhino (PCR) Not detected Blood Type Antibody Screen Crossmatch 10/04/23 10/05/23 10/05/23 22:00 02:10 05:03 WBC 10.0 RBC 2.57 L Hgb 8.2 L 8.4 L 8.3 L Hct 24.7 L 24.9 L 24.1 L MCV 93.7 D MCH 32.2 MCHC 34.3 RDW 16.7 H Plt Count 165 Neut % (Auto) 72.1 Lymph % (Auto) 15.9 L [place] % (Auto) 8.0 Eos % (Auto) 3.3 Baso % (Auto) 0.7 Neut # (Auto) 7200 H Lymph # (Auto) 1600 [place] # (Auto) 800 Eos # (Auto) 300 Baso # (Auto) 100 ABG Sample Site ABG pH ABG pCO2 ABG pO2 ABG HCO3 ABG Total CO2 ABG O2 Saturation ABG Base Excess FiO2 Sodium 137 Potassium 4.2 Chloride 108 H Carbon Dioxide 30 BUN 18 H Creatinine 0.98 Estimated GFR > 60 BUN/Creatinine Ratio 18.4 Glucose 95 Lactate 2.6 H Calcium 8.0 L Total Bilirubin AST ALT Alkaline Phosphatase Total Creatine Kinase Troponin I NT-Pro-B Natriuret Pep Total Protein Albumin Globulin Albumin/Globulin Ratio Lipase Procalcitonin Nasal Screen MRSA (PCR) Chlamy pneumoniae PCR Adenovirus (PCR) B.parapertussis DNA PCR Coronavirus OC43 (PCR) Coronavirus HKU1 (PCR) Coronavirus 229E (PCR) SARS-CoV-2 (PCR) Coronavirus NL63 (PCR) Human Metapneumovir PCR Influenza Type A (PCR) Influenza Type B (PCR) M. pneumoniae (PCR) Parainfluenza 1 (PCR) Parainfluenza 2 (PCR) Parainfluenza 3 (PCR) Parainfluenza 4 (PCR) RSV (PCR) Entero/Rhino (PCR) Blood Type Antibody Screen Crossmatch [facility] Medical History CAD (coronary artery disease) Congestive heart failure COPD (chronic obstructive pulmonary disease) Surgical History AICD (automatic cardioverter/defibrillator) present H/O heart artery stent Social History household members: spouse and none lives independently: Yes Smoking Status: Current every day smoker alcohol intake: current Assessment & Plan Assessment & Plan narrative: 1. Acute blood loss anemia, present on admission and active. 2. Hemorrhagic shock, present on admission and improved. 3. GI bleed with melena, present on admission and active. 4. COPD, present on admission and active. 5. Chronic hypoxic respiratory failure, present on admission and active. 6. CAD and remote [place], stable. 7. Chronic systolic heart failure (LVEF 25%), stable. 8. PPM, stable. 9. DM 2 (oral meds), stable. 10. Class 3 Obesity, stable. PLAN: -EGD deferred as noted above. Clear liquids. -continue Protonix -Monitor H/H -blood as needed. -Lasix 40 IV x1. -monitor breathing. She requires another midnight of hospital care to monitor bleeding and rate of blood loss. She still may end up requiring EGD. Quality VTE Deep Vein Thrombosis/Pulmonary Embolism Present on Admission: No
[2023-10-05] MEDS: BUDESONIDE 0.5 MG/2 ML NEB INH ×2 (09:32→20:40)
[2023-10-05 10:17] LABS: Hematocrit 24.1 % (36-46)
[2023-10-05 10:20] LABS: Hemoglobin 8.2 g/dL (12.0-16.0)
[2023-10-05] MEDS: LORazepam 2 MG/ML INJ 0.5 MG IV ×2 (10:22→20:19)
[2023-10-05] MEDS: HYDROMORPHONE 0.5 MG INJ IV ×3 (11:34→23:57)
--- NOTE | 2023-10-05 11:49 | CM.DANOTE ---
Initial DCP Assessment Note Pt is a 58 yo female, resident of [place], presents with SOB and chest pain. Patient admitted for management of suspected GI bleed with anemia and other chronic medical issues to include COPD, chronic reps failure (on 3L home o2), CAD, heart failure, and DM2 PCP: Jolene Steen and Kristen Lopez Payer: [facility] Reviewed chart, pt discussed in multidisciplinary rounds this morning. General surgery is following patient; no scope scheduled at this time, H+H being closely monitored. Met w/patient to introduce role and review discharge plan; patient lives with spouse, reports being indp in all aspects, spouse drives. Patient's daughter Libby lives in [place], patient/spouse see daughter occasionally. Patient has home oxygen through [facility] and would like [facility] upon discharge. According to [facility]; new HH order and F2F needed which has completed and given to Katie Oro CMA, who kindly agreed to send along to [facility]. Plan: Discharge home w/spouse via pov, resumption of Home O2 through [facility], and new [facility] referral for RN/PT/OT (patient declines [employer]). CM team will plan to follow clinical course closely. 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 Yes Advance Directives on File No History Provided By Patient,Medical Record Has Patient been admitted in last 30 No days? Comment Here July 2023 Prior Living Arrangements House Household Members spouse,none Type of transporation used prior to Drives own vehicle admit Independent with ADL's Yes Is patient alert and oriented? Yes Patient/Family Preference Home with Home Health Barriers to Discharge No Discharge Plan Home with Home Health Transportation Arrangement Likely spouse or family to provide transport Referrals Initiated Home Health Additional Comment Patient requests referral to [facility] If patient plan is home with home health Yes : Has signed face to face form been completed? SNF/HH Preference [facility] Comment According to [facility], need new HH order and F2F
[2023-10-05] MEDS: LACTATED RINGERS 1,000 ML 42 ML IV (12:03)
[2023-10-05] MEDS: FUROSEMIDE 40 MG/4 ML VIAL IV (12:04)
--- NOTE | 2023-10-05 13:20 | PM.CN ---
History of Present Illness Consult details Chief complaint: SOB/Chest Pain Meds Home Medications and Allergies Home Medications Medication Instructions Recorded Confirmed Type albuterol sulfate 90 mcg/actuation 2 puff inhalation QID PRN 07/17/22 10/04/23 History aerosol inhaler (Ventolin HFA) Shortness Of Breath amiodarone 200 mg tablet 100 mg PO DAILY 07/17/22 10/04/23 History apixaban 5 mg tablet (Eliquis) 5 mg PO BID 07/17/22 10/04/23 History albuterol sulfate 90 mcg/actuation 2 inh inhalation Q4H PRN Shortness 08/29/22 10/04/23 History breath activated powder inhaler Of Breath (ProAir RespiClick) dextromethorphan-guaifenesin 30 1 tab PO BEDTIME 08/29/22 10/04/23 History mg-600 mg tablet extended [id number] hr (Mucinex DM) methocarbamol 500 mg tablet 500 mg PO TID PRN Muscle Spasm 08/29/22 10/04/23 History metoprolol succinate 25 mg 25 mg PO DAILY 08/29/22 10/04/23 History tablet,extended release 24 hr multivitamin 1 tab PO DAILY 08/29/22 10/04/23 History promethazine 25 mg tablet 25 mg PO Q6H PRN Nausea 08/29/22 10/04/23 History fluticasone propionate 50 2 spray intranasal BID 11/07/22 10/04/23 History mcg/actuation nasal spray,suspension albuterol sulfate 2.5 mg/3 mL 2.5 mg inhalation 4XD PRN wheezing 08/01/23 10/04/23 History (0.083 %) solution for nebulization budesonide 0.5 mg/2 mL suspension 0.5 mg inhalation BID 08/01/23 10/04/23 History for nebulization empagliflozin 10 mg tablet 10 mg PO DAILY 08/01/23 10/04/23 History (Jardiance) furosemide 40 mg tablet 80 mg PO DAILY 08/01/23 10/04/23 History mexiletine 150 mg capsule 150 mg PO BID 08/01/23 10/04/23 History montelukast 10 mg tablet 10 mg PO BEDTIME 08/01/23 10/04/23 History sacubitril 24 mg-valsartan 26 mg 1 tab PO BID 08/01/23 10/04/23 History tablet (Entresto) hydrocodone 5 mg-acetaminophen 325 1 tab PO Q6H PRN Pain (Scale Score 08/09/23 10/04/23 Rx mg tablet 1-3) 7 days #20 tabs prednisone 20 mg tablet See Rx Instructions .Route 08/09/23 10/04/23 Rx .COMPLEX #10 tabs Allergies Allergy/AdvReac Type Severity Reaction Status Date / Time bee pollen Allergy Severe Anaphylaxis Verified 08/01/23 11:23 Fish Containing Products Allergy Severe Anaphylaxis Verified 08/01/23 11:23 shellfish derived Allergy Severe Anaphylaxis Verified 08/01/23 11:23 codeine Allergy Verified 08/01/23 11:23 erythromycin base Allergy Verified 08/01/23 11:23 iodine Allergy Rash Verified 08/01/23 11:23 latex Allergy Rash Verified 08/01/23 11:23 pamabrom [From Midol] Allergy Verified 08/01/23 11:23 doxycycline AdvReac Vomiting Verified 08/01/23 11:23 Exam Vital Signs (past 8 hours): - 10/05/23 06:00 10/05/23 06:00 10/05/23 07:00 Temperature Pulse Rate 64 67 Respiratory Rate 20 16 Blood Pressure 91/46 L Pulse Oximetry 93 93 Oxygen Delivery Method Oxygen Flow Rate 2 10/05/23 07:00 10/05/23 08:00 10/05/23 08:00 Temperature Pulse Rate 75 Respiratory Rate 21 Blood Pressure 88/45 L 93/46 L Pulse Oximetry 96 Oxygen Delivery Method Oxygen Flow Rate 10/05/23 08:00 10/05/23 08:14 10/05/23 08:14 Temperature Pulse Rate 74 Respiratory Rate 24 Blood Pressure 91/43 L Pulse Oximetry 97 Oxygen Delivery Method Oximask Oxygen Flow Rate 10/05/23 09:00 10/05/23 09:00 10/05/23 09:00 Temperature 99.3 F Pulse Rate 63 67 Respiratory Rate 15 21 Blood Pressure 98/53 L 98/53 L Pulse Oximetry 98 98 Oxygen Delivery Method Oxygen Flow Rate 2 10/05/23 09:32 10/05/23 10:00 10/05/23 10:00 Temperature Pulse Rate 69 69 Respiratory Rate 22 20 Blood Pressure 103/50 L Pulse Oximetry 95 98 Oxygen Delivery Method Oximask Oxygen Flow Rate 2 10/05/23 11:00 10/05/23 11:00 10/05/23 11:27 Temperature Pulse Rate 70 76 Respiratory Rate 24 34 H Blood Pressure 108/55 L Pulse Oximetry 98 99 Oxygen Delivery Method Oxygen Flow Rate 10/05/23 11:27 10/05/23 12:00 10/05/23 12:00 Temperature Pulse Rate 71 Respiratory Rate 28 H Blood Pressure 115/66 106/56 L Pulse Oximetry 97 Oxygen Delivery Method Oxygen Flow Rate 10/05/23 12:00 10/05/23 13:00 10/05/23 13:00 Temperature Pulse Rate 72 Respiratory Rate 26 H Blood Pressure 107/51 L Pulse Oximetry 98 Oxygen Delivery Method Oximask Oxygen Flow Rate Fraction of Inspired Oxygen 30 Oxygen Delivery Method Oximask Oxygen Flow Rate 2 Objective Labs 10/05/23 10:00 10/05/23 05:03 Labs: Laboratory Results - last 24 hr 10/04/23 10/04/23 10/04/23 12:55 14:35 18:15 WBC RBC Hgb Hct MCV MCH MCHC RDW Plt Count Neut % (Auto) Lymph % (Auto) [place] % (Auto) Eos % (Auto) Baso % (Auto) Neut # (Auto) Lymph # (Auto) [place] # (Auto) Eos # (Auto) Baso # (Auto) Sodium Potassium Chloride Carbon Dioxide BUN Creatinine Estimated GFR BUN/Creatinine Ratio Glucose Lactate 1.1 Calcium Troponin I < 0.012 Nasal Screen MRSA (PCR) Not detected Chlamy pneumoniae PCR Not detected Adenovirus (PCR) Not detected B.parapertussis DNA PCR Not detected Coronavirus OC43 (PCR) Not detected Coronavirus HKU1 (PCR) Not detected Coronavirus 229E (PCR) Not detected SARS-CoV-2 (PCR) Not detected Coronavirus NL63 (PCR) Not detected Human Metapneumovir PCR Not detected Influenza Type A (PCR) Not detected Influenza Type B (PCR) Not detected M. pneumoniae (PCR) Not detected Parainfluenza 1 (PCR) Not detected Parainfluenza 2 (PCR) Not detected Parainfluenza 3 (PCR) Not detected Parainfluenza 4 (PCR) Not detected RSV (PCR) Not detected Entero/Rhino (PCR) Not detected Blood Type O Positive Antibody Screen Negative Crossmatch See Detail 05/30/24 05/30/24 05/31/24 20:12 22:00 02:10 WBC RBC Hgb 8.2 L 8.4 L Hct 24.7 L 24.9 L MCV MCH MCHC RDW Plt Count Neut % (Auto) Lymph % (Auto) [place] % (Auto) Eos % (Auto) Baso % (Auto) Neut # (Auto) Lymph # (Auto) [place] # (Auto) Eos # (Auto) Baso # (Auto) Sodium Potassium Chloride Carbon Dioxide BUN Creatinine Estimated GFR BUN/Creatinine Ratio Glucose Lactate 2.7 H 2.6 H Calcium Troponin I < 0.012 Nasal Screen MRSA (PCR) Chlamy pneumoniae PCR Adenovirus (PCR) B.parapertussis DNA PCR Coronavirus OC43 (PCR) Coronavirus HKU1 (PCR) Coronavirus 229E (PCR) SARS-CoV-2 (PCR) Coronavirus NL63 (PCR) Human Metapneumovir PCR Influenza Type A (PCR) Influenza Type B (PCR) M. pneumoniae (PCR) Parainfluenza 1 (PCR) Parainfluenza 2 (PCR) Parainfluenza 3 (PCR) Parainfluenza 4 (PCR) RSV (PCR) Entero/Rhino (PCR) Blood Type Antibody Screen Crossmatch 10/05/23 10/05/23 05:03 10:00 WBC 10.0 RBC 2.57 L Hgb 8.3 L 8.2 L Hct 24.1 L 24.1 L MCV 93.7 D MCH 32.2 MCHC 34.3 RDW 16.7 H Plt Count 165 Neut % (Auto) 72.1 Lymph % (Auto) 15.9 L [place] % (Auto) 8.0 Eos % (Auto) 3.3 Baso % (Auto) 0.7 Neut # (Auto) 7200 H Lymph # (Auto) 1600 [place] # (Auto) 800 Eos # (Auto) 300 Baso # (Auto) 100 Sodium 137 Potassium 4.2 Chloride 108 H Carbon Dioxide 30 BUN 18 H Creatinine 0.98 Estimated GFR > 60 BUN/Creatinine Ratio 18.4 Glucose 95 Lactate Calcium 8.0 L Troponin I Nasal Screen MRSA (PCR) Chlamy pneumoniae PCR Adenovirus (PCR) B.parapertussis DNA PCR Coronavirus OC43 (PCR) Coronavirus HKU1 (PCR) Coronavirus 229E (PCR) SARS-CoV-2 (PCR) Coronavirus NL63 (PCR) Human Metapneumovir PCR Influenza Type A (PCR) Influenza Type B (PCR) M. pneumoniae (PCR) Parainfluenza 1 (PCR) Parainfluenza 2 (PCR) Parainfluenza 3 (PCR) Parainfluenza 4 (PCR) RSV (PCR) Entero/Rhino (PCR) Blood Type Antibody Screen Crossmatch [facility] Medical History CAD (coronary artery disease) Congestive heart failure COPD (chronic obstructive pulmonary disease) Surgical History AICD (automatic cardioverter/defibrillator) present H/O heart artery stent Social History household members: spouse and none lives independently: Yes Tobacco & Substance Use Smoking Status: Current every day smoker alcohol intake: current
[2023-10-05] MEDS: ONDANSETRON 4 MG/2 ML INJ IV (13:33)
--- NOTE | 2023-10-05 15:13 | PM.CALLCOV.1 ---
Call Coverage Note Note Date of Patient Contact: 10/05/23 Narrative of Care Provided: EGD rescheduled for tomorrow 899
[2023-10-05 16:33] LABS: Hematocrit 24.6 % (36-46); Hemoglobin 8.4 g/dL (12.0-16.0)
[2023-10-05] MEDS: MONTELUKAST 10 MG TABLET PO (21:37)
[2023-10-05 23:48] LABS: Hematocrit 24.1 % (36-46); Hemoglobin 8.2 g/dL (12.0-16.0)
[2023-10-06] VITALS (57 sets, daily range): BP systolic 65–133; BP diastolic 34–73; PULSE 60–87; RESP 10–32; TEMP 36–37.2; O2SAT 90–99
[2023-10-06] MEDS: LORazepam 2 MG/ML INJ 0.5 MG IV ×3 (00:22→22:33)
[2023-10-06] MEDS: HYDROMORPHONE 0.5 MG INJ IV ×4 (01:59→22:33)
--- NOTE | 2023-10-06 02:08 | PC.NURSE ---
Pt. c/o chest pressure rate 8/10. I gave pt Dilaudid 0.5mg then contacted Dr. Aguillon informing him of pt's complaints. Her cardiac rhythm is A & AV Paced. Asked MD if he wants anything done, and his answer is just to monitor for now.
[2023-10-06 04:57] LABS: Add Manual Diff / Slide Review NO; Basophils Absolute Auto 0 /uL (0-100); Basophils Percent Auto 0.5 % (0-2); Eosinophils Absolute Auto 400 /uL (0-450); Eosinophils Percent Auto 4.7 % (2-4); Hematocrit 24.4 % (36-46); Hemoglobin 8.2 g/dL (12.0-16.0); Lymphocytes Absolute Auto 1700 /uL (1100-4500); Lymphocytes Percent Auto 17.7 % (25-40); Mean Corpuscular HGB Conc 33.8 % (30-36); Mean Corpuscular Hemoglobin 32.1 PG (26-34); Mean Corpuscular Volume 94.9 fL (80-100); Monocytes Absolute Auto 800 /uL (0-900); Monocytes Percent Auto 8.6 % (3-14); Neutrophils Absolute Auto 6500 /uL (1500-7000); Neutrophils Percent Auto 68.5 % (50-75); Platelet Count 164 X10^3/uL (150-400); Red Blood Cell Count 2.57 X10^6/uL (4.0-5.2); Red Cell Distribution Width 16.6 % (11.6-14.8); White Blood Cell Count 9.5 X10^3/uL (4.5-11.0)
[2023-10-06 05:24] LABS: BUN Creatinine Ratio 13.1 (6-22); Blood Urea Nitrogen 11 mg/dL (7-17); Carbon Dioxide 33 mmol/L (22-32); Chloride 105 mmol/L (98-107); Estimated Glomerular Filt Rate > 60 mL/min (>60); Glucose 102 mg/dL (80-110); HEMOLYSIS < 15 (0-50); Potassium 3.8 mmol/L (3.4-5.1); Sodium 135 mmol/L (137-145)
[2023-10-06] MEDS: BUDESONIDE 0.5 MG/2 ML NEB INH ×2 (07:24→19:53)
[2023-10-06] MEDS: AMIODARONE 200 MG TABLET 100 MG PO (08:05)
[2023-10-06] MEDS: PANTOPRAZOLE 40 MG VIAL IV ×2 (08:05→20:48)
[2023-10-06] MEDS: METOPROLOL ER 25 MG TABLET PO (08:06)
[2023-10-06] MEDS: FUROSEMIDE 40 MG TABLET 80 MG PO (08:07)
--- NOTE | 2023-10-06 08:35 | P.PN_ITS ---
Subjective Subjective Interval history: Had EGD today, revealed only duodenitis. No ulcer or active bleeding. Her epigastric abdominal pain is improved. She is going to advance her diet today and get out of bed. Hemoglobin is stable. Her breathing feels normal. Exam Vital Signs (past 8 hours): - 10/06/23 01:00 10/06/23 01:01 10/06/23 01:01 Temperature Pulse Rate 73 72 Respiratory Rate 20 20 Blood Pressure 89/49 L Pulse Oximetry 95 93 Oxygen Delivery Method Oxygen Flow Rate Fraction of Inspired Oxygen 10/06/23 01:03 10/06/23 01:03 10/06/23 01:05 Temperature Pulse Rate 69 Respiratory Rate 19 Blood Pressure 90/44 L 84/44 L Pulse Oximetry 95 Oxygen Delivery Method Oxygen Flow Rate Fraction of Inspired Oxygen 10/06/23 01:05 10/06/23 01:07 10/06/23 01:07 Temperature Pulse Rate 72 71 Respiratory Rate 21 18 Blood Pressure 93/48 L Pulse Oximetry 96 97 Oxygen Delivery Method Oxygen Flow Rate 2 Fraction of Inspired Oxygen 10/06/23 02:00 10/06/23 02:00 10/06/23 03:00 Temperature Pulse Rate 69 68 Respiratory Rate 19 15 Blood Pressure 98/50 L Pulse Oximetry 97 99 Oxygen Delivery Method Oxygen Flow Rate 2 Fraction of Inspired Oxygen 10/06/23 03:00 10/06/23 04:00 10/06/23 04:00 Temperature 96.8 F L Pulse Rate 71 Respiratory Rate 19 Blood Pressure 116/57 L 101/53 L Pulse Oximetry 95 Oxygen Delivery Method Oxygen Flow Rate 2 2 Fraction of Inspired Oxygen 10/06/23 04:00 10/06/23 05:00 10/06/23 05:00 Temperature Pulse Rate 67 Respiratory Rate 16 Blood Pressure 103/52 L Pulse Oximetry 96 Oxygen Delivery Method Oximask Oxygen Flow Rate 2 Fraction of Inspired Oxygen 10/06/23 06:00 10/06/23 06:00 10/06/23 07:24 Temperature Pulse Rate 66 87 Respiratory Rate 17 20 Blood Pressure 110/59 L Pulse Oximetry 97 99 Oxygen Delivery Method Oximask Oxygen Flow Rate 2 2 Fraction of Inspired Oxygen 28 10/06/23 08:06 Temperature Pulse Rate 71 Respiratory Rate Blood Pressure 108/55 L Pulse Oximetry Oxygen Delivery Method Oxygen Flow Rate Fraction of Inspired Oxygen Fraction of Inspired Oxygen 28 SaO2/FiO2 Ratio 353 Oxygen Delivery Method Oximask Oxygen Flow Rate 2 Narrative Exam Narrative: NAD, alert and oriented. Fluent speech. Lungs are clear (except for some scattered expiratory wheezing), normal rate and effort. Heart is regular, no murmur gallop or rub. Abdomen is soft, non distended. Extremities are free of edema. Objective Labs 10/06/23 04:48 10/06/23 04:48 Labs: Laboratory Results - last 24 hr 10/05/23 10/05/23 10/05/23 10:00 16:00 23:40 WBC RBC Hgb 8.2 L 8.4 L 8.2 L Hct 24.1 L 24.6 L 24.1 L MCV MCH MCHC RDW Plt Count Neut % (Auto) Lymph % (Auto) [place] % (Auto) Eos % (Auto) Baso % (Auto) Neut # (Auto) Lymph # (Auto) [place] # (Auto) Eos # (Auto) Baso # (Auto) Sodium Potassium Chloride Carbon Dioxide BUN Creatinine Estimated GFR BUN/Creatinine Ratio Glucose Calcium 10/06/23 04:48 WBC 9.5 RBC 2.57 L Hgb 8.2 L Hct 24.4 L MCV 94.9 MCH 32.1 MCHC 33.8 RDW 16.6 H Plt Count 164 Neut % (Auto) 68.5 Lymph % (Auto) 17.7 L [place] % (Auto) 8.6 Eos % (Auto) 4.7 H Baso % (Auto) 0.5 Neut # (Auto) 6500 Lymph # (Auto) 1700 [place] # (Auto) 800 Eos # (Auto) 400 Baso # (Auto) 0 Sodium 135 L Potassium 3.8 Chloride 105 Carbon Dioxide 33 H BUN 11 Creatinine 0.84 Estimated GFR > 60 BUN/Creatinine Ratio 13.1 Glucose 102 Calcium 8.0 L [facility] Medical History CAD (coronary artery disease) Congestive heart failure COPD (chronic obstructive pulmonary disease) Surgical History AICD (automatic cardioverter/defibrillator) present H/O heart artery stent Social History household members: spouse and none lives independently: Yes Smoking Status: Current every day smoker alcohol intake: current Assessment & Plan Assessment & Plan narrative: 1. Acute blood loss anemia, present on admission and active. 2. Hemorrhagic shock, present on admission and improved. 3. GI bleed with melena, present on admission and active. 4. COPD, present on admission and active. 5. Chronic hypoxic respiratory failure, present on admission and active. 6. CAD and remote [place], stable. 7. Chronic systolic heart failure (LVEF 25%), stable. 8. PPM, stable. 9. DM 2 (oral meds), stable. 10. Class 3 Obesity, stable. PLAN: EGD revealed duodenitis, continue Protonix IV b.i.d.. -hemoglobin is stable, monitor q.12 hours. -continue usual medications. -out of bed, advance activity. Possible discharge on October 06 pending stability of hemoglobin, breathing, and ability to ambulate. Quality VTE Deep Vein Thrombosis/Pulmonary Embolism Present on Admission: No
--- NOTE | 2023-10-06 08:47 | P.CONS_ITS ---
History of Present Illness Consult details Date Patient Seen: 10/06/23 Time Patient Seen: 08:47 Chief complaint: SOB/Chest Pain Reason for consult: GI bleed Requesting provider: Jai Thornton Narrative: Presented with fatigue and severe a anemia with recent dark stools. Cardiac and pulmonary issues place her in high risk group for anesthesia. Meds Home Medications and Allergies Home Medications Medication Instructions Recorded Confirmed Type albuterol sulfate 90 mcg/actuation 2 puff inhalation QID PRN 07/17/22 10/04/23 History aerosol inhaler (Ventolin HFA) Shortness Of Breath amiodarone 200 mg tablet 100 mg PO DAILY 07/17/22 10/04/23 History apixaban 5 mg tablet (Eliquis) 5 mg PO BID 07/17/22 10/04/23 History albuterol sulfate 90 mcg/actuation 2 inh inhalation Q4H PRN Shortness 08/29/22 10/04/23 History breath activated powder inhaler Of Breath (ProAir RespiClick) dextromethorphan-guaifenesin 30 1 tab PO BEDTIME 08/29/22 10/04/23 History mg-600 mg tablet extended [id number] hr (Mucinex DM) methocarbamol 500 mg tablet 500 mg PO TID PRN Muscle Spasm 08/29/22 10/04/23 History metoprolol succinate 25 mg 25 mg PO DAILY 08/29/22 10/04/23 History tablet,extended release 24 hr multivitamin 1 tab PO DAILY 08/29/22 10/04/23 History promethazine 25 mg tablet 25 mg PO Q6H PRN Nausea 08/29/22 10/04/23 History fluticasone propionate 50 2 spray intranasal BID 11/07/22 10/04/23 History mcg/actuation nasal spray,suspension albuterol sulfate 2.5 mg/3 mL 2.5 mg inhalation 4XD PRN wheezing 08/01/23 10/04/23 History (0.083 %) solution for nebulization budesonide 0.5 mg/2 mL suspension 0.5 mg inhalation BID 08/01/23 10/04/23 History for nebulization empagliflozin 10 mg tablet 10 mg PO DAILY 08/01/23 10/04/23 History (Jardiance) furosemide 40 mg tablet 80 mg PO DAILY 08/01/23 10/04/23 History mexiletine 150 mg capsule 150 mg PO BID 08/01/23 10/04/23 History montelukast 10 mg tablet 10 mg PO BEDTIME 08/01/23 10/04/23 History sacubitril 24 mg-valsartan 26 mg 1 tab PO BID 08/01/23 10/04/23 History tablet (Entresto) hydrocodone 5 mg-acetaminophen 325 1 tab PO Q6H PRN Pain (Scale Score 08/09/23 10/04/23 Rx mg tablet 1-3) 7 days #20 tabs prednisone 20 mg tablet See Rx Instructions .Route 08/09/23 10/04/23 Rx .COMPLEX #10 tabs Allergies Allergy/AdvReac Type Severity Reaction Status Date / Time bee pollen Allergy Severe Anaphylaxis Verified 08/01/23 11:23 Fish Containing Products Allergy Severe Anaphylaxis Verified 08/01/23 11:23 shellfish derived Allergy Severe Anaphylaxis Verified 08/01/23 11:23 codeine Allergy Verified 08/01/23 11:23 erythromycin base Allergy Verified 08/01/23 11:23 iodine Allergy Rash Verified 08/01/23 11:23 latex Allergy Rash Verified 08/01/23 11:23 pamabrom [From Midol] Allergy Verified 08/01/23 11:23 doxycycline AdvReac Vomiting Verified 08/01/23 11:23 Review of Systems Review of Systems ROS: Yes All systems reviewed with the patient and are negative except as otherwise documented Exam Vital Signs (past 8 hours): - 10/06/23 01:00 10/06/23 01:01 10/06/23 01:01 Temperature Pulse Rate 73 72 Respiratory Rate 20 20 Blood Pressure 89/49 L Pulse Oximetry 95 93 Oxygen Delivery Method Oxygen Flow Rate Fraction of Inspired Oxygen 10/06/23 01:03 10/06/23 01:03 10/06/23 01:05 Temperature Pulse Rate 69 Respiratory Rate 19 Blood Pressure 90/44 L 84/44 L Pulse Oximetry 95 Oxygen Delivery Method Oxygen Flow Rate Fraction of Inspired Oxygen 10/06/23 01:05 10/06/23 01:07 10/06/23 01:07 Temperature Pulse Rate 72 71 Respiratory Rate 21 18 Blood Pressure 93/48 L Pulse Oximetry 96 97 Oxygen Delivery Method Oxygen Flow Rate 2 Fraction of Inspired Oxygen 10/06/23 02:00 10/06/23 02:00 10/06/23 03:00 Temperature Pulse Rate 69 68 Respiratory Rate 19 15 Blood Pressure 98/50 L Pulse Oximetry 97 99 Oxygen Delivery Method Oxygen Flow Rate 2 Fraction of Inspired Oxygen 10/06/23 03:00 10/06/23 04:00 10/06/23 04:00 Temperature 96.8 F L Pulse Rate 71 Respiratory Rate 19 Blood Pressure 116/57 L 101/53 L Pulse Oximetry 95 Oxygen Delivery Method Oxygen Flow Rate 2 2 Fraction of Inspired Oxygen 10/06/23 04:00 10/06/23 05:00 10/06/23 05:00 Temperature Pulse Rate 67 Respiratory Rate 16 Blood Pressure 103/52 L Pulse Oximetry 96 Oxygen Delivery Method Oximask Oxygen Flow Rate 2 Fraction of Inspired Oxygen 10/06/23 06:00 10/06/23 06:00 10/06/23 07:24 Temperature Pulse Rate 66 87 Respiratory Rate 17 20 Blood Pressure 110/59 L Pulse Oximetry 97 99 Oxygen Delivery Method Oximask Oxygen Flow Rate 2 2 Fraction of Inspired Oxygen 28 10/06/23 08:06 10/06/23 08:42 Temperature Pulse Rate 71 71 Respiratory Rate Blood Pressure 108/55 L 116/58 L Pulse Oximetry Oxygen Delivery Method Oxygen Flow Rate Fraction of Inspired Oxygen Fraction of Inspired Oxygen 28 SaO2/FiO2 Ratio 353 Oxygen Delivery Method Oximask Oxygen Flow Rate 2 Const General: cooperative and comfortable Nutritional Appearance: obese (BMI 45.5) [facility] Head: normocephalic and atraumatic Ears: hearing grossly normal bilaterally Eyes Conjunctivae: conjunctivae normal Sclera: sclerae normal Neck Neck: trachea midline Resp Effort & Inspection: able to speak in complete sentences, abnormal respiratory pattern, cough and no respiratory distress Cardio Palpation: abnormal PMI Rate: regular rate GI Inspection: obesity Palpation: soft Skin General: atrophy and dry skin Neuro General: patient alert, patient awake and patient oriented x3 Psych Judgment: judgment good Objective Labs 10/06/23 04:48 10/06/23 04:48 Labs: Laboratory Results - last 24 hr 10/05/23 10/05/23 10/05/23 10:00 16:00 23:40 WBC RBC Hgb 8.2 L 8.4 L 8.2 L Hct 24.1 L 24.6 L 24.1 L MCV MCH MCHC RDW Plt Count Neut % (Auto) Lymph % (Auto) [place] % (Auto) Eos % (Auto) Baso % (Auto) Neut # (Auto) Lymph # (Auto) [place] # (Auto) Eos # (Auto) Baso # (Auto) Sodium Potassium Chloride Carbon Dioxide BUN Creatinine Estimated GFR BUN/Creatinine Ratio Glucose Calcium 10/06/23 04:48 WBC 9.5 RBC 2.57 L Hgb 8.2 L Hct 24.4 L MCV 94.9 MCH 32.1 MCHC 33.8 RDW 16.6 H Plt Count 164 Neut % (Auto) 68.5 Lymph % (Auto) 17.7 L [place] % (Auto) 8.6 Eos % (Auto) 4.7 H Baso % (Auto) 0.5 Neut # (Auto) 6500 Lymph # (Auto) 1700 [place] # (Auto) 800 Eos # (Auto) 400 Baso # (Auto) 0 Sodium 135 L Potassium 3.8 Chloride 105 Carbon Dioxide 33 H BUN 11 Creatinine 0.84 Estimated GFR > 60 BUN/Creatinine Ratio 13.1 Glucose 102 Calcium 8.0 L PFSH Medical History CAD (coronary artery disease) Congestive heart failure COPD (chronic obstructive pulmonary disease) Surgical History AICD (automatic cardioverter/defibrillator) present H/O heart artery stent Social History household members: spouse and none lives independently: Yes Tobacco & Substance Use Smoking Status: Current every day smoker alcohol intake: current Assessment & Plan Assessment & Plan narrative: upper GI bleed Plan: EGD with MAC. already on PPI Time Spent With Patient Time with patient: less than 30 minutes
--- NOTE | 2023-10-06 09:27 | PM.OP.EGD ---
Operative Date/Time/Diagnoses Date of procedure: 10/06/23 Time of procedure: 09:28 Pre-op diagnosis: Upper GI bleed Post-op diagnosis: same Procedure & Clinicians Study performed: EGD under MAC Same procedure as scheduled: Yes Indications: Upper GI bleed Surgeon: Marilou Fuentes Procedure Notes Procedure in detail: Preop diagnosis: Upper GI bleed Postop diagnosis: Same Operative procedure: EGD with anesthesia Surgeon: Rakel Fuentes MD Findings: Small gastric erosions, moderate duodenitis without ulceration Procedure: Patient placed in supine position. Anesthetic was provided. Endoscope was placed into the esophagus advanced into the stomach with insufflation identified the pylorus and intubated into the duodenal. Insufflation extraction of the scope including retroflex in the fundus had the above findings. Esophagus was then normal limits as well Impression: Duodenitis and small scattered gastric erosions no overt ulcer. Plan: Continue on PPI b.i.d. for 8 weeks then consider staying on once a day Findings: other findings (Small scattered gastric erosions, duodenitis) Specimen(s): none sent Complications: none Post-procedure Recommendations: No ASA/NSAIDs Follow up: as needed Disposition: PACU
--- NOTE | 2023-10-06 11:45 | CM.DPC ---
DCP Cont. Reviewed EMR and team rounds for status updates. Per Hospitalist, pt will need another 1-2 more days before she is stable enough for home d/c. [facility] setup to start post-hospital d/c.
[2023-10-06] MEDS: ONDANSETRON 4 MG/2 ML INJ IV (12:49)
[2023-10-06] MEDS: MONTELUKAST 10 MG TABLET PO (20:48)
[2023-10-06] MEDS: guaiFENesin ER 600 MG TAB PO (21:02)
[2023-10-06] MEDS: ALBUTEROL 2.5 MG/3 ML NEB (ADULT) INH (22:12)
[2023-10-07] VITALS (11 sets, daily range): BP systolic 119–194; BP diastolic 55–94; PULSE 63–77; RESP 20–22; TEMP 36.2–36.5; O2SAT 96–100
[2023-10-07 05:09] LABS: Add Manual Diff / Slide Review NO; Basophils Absolute Auto 100 /uL (0-100); Basophils Percent Auto 0.6 % (0-2); Eosinophils Absolute Auto 500 /uL (0-450); Eosinophils Percent Auto 5.3 % (2-4); Hematocrit 24.7 % (36-46); Hemoglobin 8.4 g/dL (12.0-16.0); Lymphocytes Absolute Auto 1300 /uL (1100-4500); Lymphocytes Percent Auto 12.7 % (25-40); Mean Corpuscular HGB Conc 33.8 % (30-36); Mean Corpuscular Hemoglobin 32.1 PG (26-34); Mean Corpuscular Volume 94.9 fL (80-100); Monocytes Absolute Auto 800 /uL (0-900); Monocytes Percent Auto 7.7 % (3-14); Neutrophils Absolute Auto 7500 /uL (1500-7000); Neutrophils Percent Auto 73.7 % (50-75); Platelet Count 184 X10^3/uL (150-400); Red Cell Distribution Width 16.4 % (11.6-14.8); White Blood Cell Count 10.2 X10^3/uL (4.5-11.0)
[2023-10-07 06:01] LABS: BUN Creatinine Ratio 12.5 (6-22); Blood Urea Nitrogen 12 mg/dL (7-17); Calcium 8.5 mg/dL (8.4-10.2); Carbon Dioxide 34 mmol/L (22-32); Chloride 101 mmol/L (98-107); Estimated Glomerular Filt Rate > 60 mL/min (>60); Glucose 154 mg/dL (80-110); HEMOLYSIS < 15 (0-50); Potassium 3.4 mmol/L (3.4-5.1); Sodium 134 mmol/L (137-145)
[2023-10-07] MEDS: BUDESONIDE 0.5 MG/2 ML NEB INH (07:29)
[2023-10-07] MEDS: ALBUTEROL 2.5 MG/3 ML NEB (ADULT) INH (07:29)
[2023-10-07] MEDS: FUROSEMIDE 40 MG TABLET 80 MG PO (08:39)
[2023-10-07] MEDS: POTASSIUM CHLORIDE 20 MEQ TAB 40 MEQ PO (08:39)
[2023-10-07] MEDS: METOPROLOL ER 25 MG TABLET PO (08:40)
[2023-10-07] MEDS: AMIODARONE 200 MG TABLET 100 MG PO (08:40)
[2023-10-07] MEDS: PANTOPRAZOLE 40 MG VIAL IV (08:41)
--- NOTE | 2023-10-07 10:50 | PM.DS.1 ---
History of Present Illness History of Present Illness Chief complaint: SOB/Chest Pain Narrative: From ED doctor: 58-year-old female history of COPD on 3 L home O2, congestive heart failure with an EF of 25% in August of 2022 left ventricular wall thickness was upper limits of normal has a pacemaker in the right ventricle there was no pericardial effusion or pleural effusion. Patient presents with complaint of recent upper respiratory infection with sudden increase in shortness of breath, chest pain. Patient per EMS we will often get pneumonia when she gets sick. No reported fevers, patient has quite a bit of pain in her left lower extremity where they placed an IO in transport in has difficulty focusing to give answers. Per EMS patient was 95% on her usual 3 L upon arrival, they noted increased work of breathing and transport so they placed her on CPAP because of this they were attempting to obtain access in her blood pressure had a diastolic in the 90s they wish to start fluids and could not find any IV placement and placed an IO for hypotension. They note that her MAP was never below 65. Patient's allergies include shellfish, iodine and doxycycline. Updates: She adds that she has had epigastric abdominal pain for several days which is quite severe and increases with deep breathing. She denies any substernal sustained chest pain. She also denies nausea or hematemesis. She was quite anxious and notes that this is typical when she was in the hospital. She was recently in [place] and has had some URI symptoms including rhinorrhea and a dry cough. She denies taking aspirin, Plavix, or nonsteroidals. She has no history of melena, GI bleeding, or ulcers. She received 2 units of blood in the emergency department in his receiving a 3rd upon arrival to the CCU. Her blood pressure is improved. She is 1+ leg edema. Discharge Providers Provider Date of admission: 10/04/23 17:19 Discharge Date: 10/07/23 Primary care physician: Jolene Steen PA-C Consults: 10/04/23 17:18 Consult to General Surgery Stat Comment: Consulting Provider: Marilou Fuentes Reason for consultation: gi bleed Has provider been notified: Yes 10/05/23 12:09 Consult to Home Health Routine Comment: Reason For Exam: Home health upon discharge Discharge provider: Jai Thornton MD Summary Hospital Course Discharge Diagnosis: 1. Acute blood loss anemia, present on admission and improved. 2. Hemorrhagic shock, present on admission and resolved. 3. GI bleed with melena, present on admission and resolved. 4. COPD, present on admission and stable. 5. Chronic hypoxic respiratory failure, present on admission and stable. 6. CAD and remote [place], stable. 7. Chronic systolic heart failure (LVEF 25%), stable. 8. PPM, stable. 9. DM 2 (oral meds), stable. 10. Class 3 Obesity, stable. Status at Discharge Cognitive/behavioral status at discharge: oriented Functional status at discharge: uses cane/walker Overall status at discharge: patient is back to baseline Time Spent with Patient Time spent: Greater than 30 minutes Exam Vital Signs (past 8 hours): - 10/07/23 04:00 10/07/23 07:00 10/07/23 07:29 Temperature 97.7 F Pulse Rate 69 67 Respiratory Rate 20 20 Blood Pressure 141/66 H Pulse Oximetry 100 98 Oxygen Delivery Method Oximask Oximask Oxygen Flow Rate 2 2 Fraction of Inspired Oxygen 28 10/07/23 07:40 10/07/23 08:40 10/07/23 09:15 Temperature 97.1 F L Pulse Rate 66 71 70 Respiratory Rate 22 Blood Pressure 121/55 L 121/55 L 121/55 L Pulse Oximetry 97 Oxygen Delivery Method Oxygen Flow Rate 2 Fraction of Inspired Oxygen Fraction of Inspired Oxygen 28 SaO2/FiO2 Ratio 350 Oxygen Delivery Method Oximask Oxygen Flow Rate 2 Narrative Exam Narrative: NAD, alert and oriented. Fluent speech. Lungs are clear, normal rate and effort. Heart is regular, no murmur gallop or rub. Abdomen is soft, non distended. Extremities are free of edema. On 2 L of oxygen. Objective Imaging Chest x-ray: Radiologist's impression: IMPRESSION: Tip of PICC projects to the area of proximal SVC. Chest/Abdomen/Pelvis CT:: Radiologist's impression: 1. No acute abnormality identified in the chest, abdomen, or pelvis. No source for anemia identified. 2. Mild cardiomegaly. Labs 10/07/23 04:55 10/07/23 04:55 Labs: Laboratory Results - last 24 hr 10/07/23 04:55 WBC 10.2 RBC 2.60 L Hgb 8.4 L Hct 24.7 L MCV 94.9 MCH 32.1 MCHC 33.8 RDW 16.4 H Plt Count 184 Neut % (Auto) 73.7 Lymph % (Auto) 12.7 L [place] % (Auto) 7.7 Eos % (Auto) 5.3 H Baso % (Auto) 0.6 Neut # (Auto) 7500 H Lymph # (Auto) 1300 [place] # (Auto) 800 Eos # (Auto) 500 H Baso # (Auto) 100 Sodium 134 L Potassium 3.4 Chloride 101 Carbon Dioxide 34 H BUN 12 Creatinine 0.96 Estimated GFR > 60 BUN/Creatinine Ratio 12.5 Glucose 154 H Calcium 8.5 PFSH Medical History CAD (coronary artery disease) Congestive heart failure COPD (chronic obstructive pulmonary disease) Surgical History AICD (automatic cardioverter/defibrillator) present H/O heart artery stent Social History household members: spouse and none lives independently: Yes Smoking Status: Current every day smoker alcohol intake: current Discharge Assessment & Plan Assessment and Plan Assessment: 1. Acute blood loss anemia, present on admission and improved. 2. Hemorrhagic shock, present on admission and resolved. 3. GI bleed with melena, present on admission and resolved. 4. COPD, present on admission and stable. 5. Chronic hypoxic respiratory failure, present on admission and stable. 6. CAD and remote [place], stable. 7. Chronic systolic heart failure (LVEF 25%), stable. 8. PPM, stable. 9. DM 2 (oral meds), stable. 10. Class 3 Obesity, stable. Plan of Treatment: She was admitted with evidence of GI bleed, hemorrhagic shock, acute blood loss anemia. She was transfused and improved. She was started on Protonix IV. The patient underwent endoscopy revealing duodenitis but no evidence of ongoing blood loss and her hemoglobin remained stable after transfusion. She was continued on Protonix and had a baseline O2 requirement of 2 L. She did have a fair amount of epigastric pain originally which did improve with her proton pump inhibitor. On the day of discharge she appeared to be at baseline was comfortable with the idea of going home. She will continue with PPI b.i.d. for at least a month and potentially up to 3 months. She was given 30 day supply with 1 refill and asked to see your PCP within a week. Her PICC line was removed at the time of discharge. This was placed for access. Discharge Plan Discharge Plan Patient Disposition: Home Provider Discharge Comment: Stable for discharge home on Protonix twice a day. Hemoglobin stable. Close follow up is recommended. Discharge orders & Medications Prescriptions: New pantoprazole [Protonix] 40 mg tablet,delayed release (DR/EC) 40 mg PO BID Qty: 60 2RF hydrocodone-acetaminophen 5-325 mg tablet 1 tab PO BID PRN (Reason: pain) Qty: 20 0RF Continued amiodarone 200 mg tablet 100 mg PO DAILY Patient Comments: TAKE 1/2 (ONE-HALF) TABLET BY MOUTH ONCE DAILY albuterol sulfate [Ventolin HFA] 90 mcg/actuation HFA aerosol inhaler 2 puff INHALATION QID PRN (Reason: Shortness Of Breath) Patient Comments: INHALE 2 PUFFS BY MOUTH 4 TIMES DAILY NEEDED Eliquis 5 mg tablet 5 mg PO BID Patient Comments: TAKE 1 TABLET BY MOUTH TWICE DAILY metoprolol succinate 25 mg tablet extended release 24 hr 25 mg PO DAILY Patient Comments: TAKE 1 TABLET BY MOUTH TWICE DAILY FOR BLOOD PRESSURE ProAir RespiClick 90 mcg/actuation aerosol powdr breath activated 2 inh INHALATION Q4H PRN (Reason: Shortness Of Breath) Patient Comments: INHALE 2 PUFFS BY MOUTH EVERY 4 TO 6 HOURS NEEDED promethazine 25 mg tablet 25 mg PO Q6H PRN (Reason: Nausea) Patient Comments: TAKE 1 TABLET BY MOUTH EVERY 6 HOURS multivitamin Tablet 1 tab PO DAILY Mucinex DM 30-600 mg Tablet Extended Release 12 Hr 1 tab PO BEDTIME methocarbamol 500 mg tablet 500 mg PO TID PRN (Reason: Muscle Spasm) Patient Comments: TAKE 1 TABLET BY MOUTH THREE TIMES DAILY NEEDED FOR MUSCLE SPASM albuterol sulfate 2.5 mg /3 mL (0.083 %) solution for nebulization 2.5 mg inhalation 4XD PRN (Reason: wheezing) mexiletine 150 mg capsule 150 mg PO BID budesonide 0.5 mg/2 mL suspension for nebulization 0.5 mg inhalation BID montelukast 10 mg tablet 10 mg PO BEDTIME Jardiance 10 mg tablet 10 mg PO DAILY Entresto 24-26 mg tablet 1 tab PO BID furosemide 40 mg tablet 80 mg PO DAILY Patient Comments: TAKE 1 TABLET BY MOUTH TWICE DAILY prednisone 20 mg Tablet See Rx Instructions .ROUTE .COMPLEX Qty: 10 0RF Rx Instructions: Take 40 mg daily for 3 days, 20 mg daily for 3 days, 10 mg daily for 2 days, then stop. hydrocodone-acetaminophen 5-325 mg tablet 1 tab PO Q6H PRN (Reason: Pain (Scale Score 1-3)) 7 Days Qty: 20 0RF fluticasone propionate 50 mcg/actuation spray,suspension 2 spray INTRANASAL BID Follow up/Referrals: Jolene Steen PA-C [Primary Care Provider] - Discharge Health Status Multidrug resistant organism: No MDRO Diet/Activity/Treatments Diet: Carb-consistent/Diabetic Activity: As tolerated. Skin/Wound/Dressing Care Report to your healthcare provider any signs of infection, such as:: increased pain Visit Report/Discharge Packet Instructions: DI for Heart Failure, DI for Gastritis, DI for Prescription Opioid Use Stand Alone Forms: Patient Portal/API Discharge Data Primary Care Provider: Jolene Steen Quality VTE Deep Vein Thrombosis/Pulmonary Embolism Present on Admission: No MIPS - DC The patient has a history of heart transplant or Left Ventricular Assist Device (LVAD). If yes, STOP here.: No B. The patient was prescribed or already taking a beta-majo. [If Yes to Both A & B, STOP here]: Yes
--- NOTE | 2023-10-07 13:13 | CM.DPC ---
DCP Discharge Home Per MD, pt on her baseline oxygen and medically stable to discharge home today with HH and no identified barriers to discharge. Per Rn, discharge instructions provided and no concerns noted. SW contacted [facility] and faxed discharge summary (done but not yet signed) to [facility] to review for getting pt on their schedule for this week. F2F and HH orders previously faxed prior to discharge. Plan: Patient to discharge home today via spouse POV and new [facility] set up to start this week and no further SW needs at this time. Albertina Ulloa MSW
== END 2023-10-07 13:15 | disposition home health service (06) | DRG 377 ==
LOC: ED 13:52 → AC 17:19 → ICU 17:30
PROVIDERS: Surgery; Admitting Provider Hospitalist; Emergency Provider Emergency Medicine; Family Provider Internal Medicine; PCP Physician Assistant Medical; Referring Provider Emergency Medicine; Visit Provider Hospitalist
PROC: 0DJ08ZZ Inspection of Upper Intestinal Tract, Via Natural or Artificial Opening Endoscopic (ICD-10-PCS; CPT 43235; principal; 2023-10-06 09:00)
DX: K92.2 Gastrointestinal hemorrhage, unspecified (principal); R57.8 Other shock; D62 Acute posthemorrhagic anemia; J96.11 Chronic respiratory failure with hypoxia; I50.22 Chronic systolic (congestive) heart failure; J44.9 Chronic obstructive pulmonary disease, unspecified; I25.10 Atherosclerotic heart disease of native coronary artery without angina pectoris; E11.9 Type 2 diabetes mellitus without complications; F17.200 Nicotine dependence, unspecified, uncomplicated; I25.2 Old myocardial infarction; Z79.84 Long term (current) use of oral hypoglycemic drugs; Z95.0 Presence of cardiac pacemaker; Z95.5 Presence of coronary angioplasty implant and graft; Z99.81 Dependence on supplemental oxygen
CPT/HCPCS: 36430; 36569; 36592; 36600; 43235; 71260; 74177; 80048; 80053; 82550; 82805; 83605; 83690; 83880; 84145; 84484; 85014; 85018; 85025; 86850; 86900; 86901; 87633; 87797; 93005; 94640; 94762; 96374; 96375; 99232; 99285; 99291; P9016; C9113; J0136; J1170; J1642; J1940; J2060; J2250; J2405; J2919; J3010; J7613; Q9967

== ENCOUNTER 2024-02-21 18:27 | Observation (INO) | payer MEDICARE, MEDICAID, SELFPAY ==
[2023-10-04 14:16] VITALS: PULSE 70; RESP 18; O2SAT 100
[2023-10-04 18:08] VITALS: BMI 45.7
[2024-02-21] VITALS (18 sets, daily range): BP systolic 111–140; BP diastolic 51–84; PULSE 79–102; RESP 15–40; TEMP 36.4; O2SAT 87–98; BMI 43.9
--- NOTE | 2024-02-21 18:45 | PC.NURSE ---
Pt uses 3L oxygen at baseline. Arrived to ED without portable machine and in distress. Placed on 4L via oxymask as pt does not tolerate nasal cannula.
[2024-02-21] MEDS: ALBUTEROL/IPRATROPIUM 3 ML AMPUL INH (18:55)
--- NOTE | 2024-02-21 18:57 | DI.RAD.S_ITS ---
PROCEDURE: XR CHEST 1V INDICATIONS: Shortness of breath TECHNIQUE: One view of the chest was acquired. COMPARISON: [facility], CT, CT CHEST ABD PEL W CON, 10/04/2023, 15:16. [facility], CR, XR CHEST FOR PICC 1V, 10/04/2023, 14:33. [facility], CR, XR CHEST FOR PICC 1V, 08/01/2023, 13:57. [facility], CR, XR CHEST 1V, 08/01/2023, 11:27. [facility], CR, XR CHEST 1V, 07/16/2022, 12:09. FINDINGS: Surgical changes and devices: Left pacemaker leads projecting over the right atrium, right ventricle, and coronary sinus Lungs and pleura: Mild central hilar opacification extending to the lung bases. No pleural effusions or pneumothorax. Mediastinum: Aortic arch calcifications. Cardiomegaly. Bones and chest wall: No suspicious bony lesions. Multiple chronic, healed, anterior rib fractures. Overlying soft tissues appear unremarkable. IMPRESSION: Mild CHF exacerbation versus findings that can be seen in the setting of aspiration. Dictated by: Nabeel Olivera M.D. on 02/21/2024 at 21:00 Approved by: Nabeel Olivera M.D. on 02/21/2024 at 21:04
[2024-02-21 19:06] LABS: INR 0.9 (0.9-1.3); Prothrombin Time 10.8 SECONDS (9.4-12.5)
[2024-02-21 19:09] LABS: Add Manual Diff / Slide Review NO; Basophils Absolute Auto 100 /uL (0-100); Basophils Percent Auto 0.8 % (0-2); Eosinophils Absolute Auto 300 /uL (0-450); Hematocrit 39.7 % (36-46); Hemoglobin 12.9 g/dL (12.0-16.0); Lactate (Lactic Acid) 1.9 mmol/L (0.7-2.1); Lymphocytes Absolute Auto 2500 /uL (1100-4500); Lymphocytes Percent Auto 24.6 % (25-40); Mean Corpuscular HGB Conc 32.6 % (30-36); Mean Corpuscular Hemoglobin 26.3 PG (26-34); Mean Corpuscular Volume 80.9 fL (80-100); Monocytes Absolute Auto 900 /uL (0-900); Monocytes Percent Auto 8.9 % (3-14); Neutrophils Absolute Auto 6400 /uL (1500-7000); Neutrophils Percent Auto 62.7 % (50-75); Platelet Count 304 X10^3/uL (150-400); Red Blood Cell Count 4.91 X10^6/uL (4.0-5.2); Red Cell Distribution Width 22.2 % (11.6-14.8); White Blood Cell Count 10.3 X10^3/uL (4.5-11.0)
[2024-02-21 19:10] LABS: Alanine Aminotransferase 17 IU/L (<35); Albumin 3.8 g/dL (3.5-5.0); Albumin Globulin Ratio 1.2 (1.0-2.8); Alkaline Phosphatase 138 U/L (38-126); Aspartate Aminotransferase 23 IU/L (14-36); BUN Creatinine Ratio 15.4 (6-22); Bilirubin Total 0.2 mg/dL (0.2-1.3); Blood Urea Nitrogen 16 mg/dL (7-17); Calcium 9.8 mg/dL (8.4-10.2); Carbon Dioxide 29 mmol/L (22-32); Chloride 101 mmol/L (98-107); Estimated Glomerular Filt Rate > 60 mL/min (>60); Globulin 3.1 g/dL (1.7-4.1); Glucose 138 mg/dL (80-110); HEMOLYSIS < 15 (0-50); Potassium 3.2 mmol/L (3.4-5.1); Sodium 137 mmol/L (137-145); Total Protein 6.9 g/dL (6.3-8.2)
--- NOTE | 2024-02-21 19:14 | EKG_ITS ---
[place] [id number] [address] [place] [id number] Test Date: 2024-02-21 Pat Name: Bernarda Chong Department: [facility] Room: Gender: Female Surgical Lead: VALENTIN : 1965 Requested By: Order Number: [id number] Reading MD: Jai Thornton Measurements Intervals [place] Rate: 83 P: -17 [place]: QRS: -83 QRSD: 176 T: 90 QT: 486 QTc: 571 Interpretive Statements Ventricular-paced rhythm with frequent premature ventricular complexes Electronically Signed On 02-25-2024 15:25:38 PDT by Jai Thornton
--- NOTE | 2024-02-21 19:15 | ED.SOB ---
HPI - SOB/Dyspnea General Chief Complaint: Shortness of Breath/Dyspnea Stated Complaint: SOB Time Seen by Provider: 02/21/24 19:00 Source: patient, RN notes reviewed and old records reviewed Mode of arrival: Family Vehicle Limitations: no limitations History of Present Illness HPI Narrative: [age] old female history of COPD on 3 L home O2, congestive heart failure with the EF of 25% in August of 2022, has a pacemaker on Eliquis. Patient presents with of increased shortness of breath. States she has been sick for the past 3 weeks, states it has been worse over the past week. Had a cardiology appointment today had outpatient labs was told her potassium was quite low but that she should come be evaluated. Patient states no fevers but states she does not normally mount a fever. States she is felt congested like she has pneumonia she has had cough but has been nonproductive. States has had chest tightness and increased shortness of breath. States he has had some swelling in her hand but otherwise no swelling of extremities. Patient states she has been using 4 L nasal cannula for the past several days. Was intubated a month ago for anaphylaxis after a bee sting. But states she has required continuous nebs in the past as well as high-flow. Allergies include shellfish, iodine doxycycline. Patient does use her inhalers regularly. Has not been on any recent steroids. States no other new medication changes besides potassium that was added today. Does use tobacco daily about a half pack daily, no regular alcohol, no recreational drugs. 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 MAYRA Steen as her primary care provider. Related Data Home Medications Medication Instructions Recorded Confirmed albuterol sulfate 90 mcg/actuation 2 puff inhalation QID PRN 07/17/22 10/15/23 aerosol inhaler (Ventolin HFA) Shortness Of Breath amiodarone 200 mg tablet 100 mg PO DAILY 07/17/22 10/15/23 apixaban 5 mg tablet (Eliquis) 5 mg PO BID 07/17/22 10/15/23 albuterol sulfate 90 mcg/actuation 2 inh inhalation Q4H PRN Shortness 08/29/22 10/15/23 breath activated powder inhaler Of Breath (ProAir RespiClick) dextromethorphan-guaifenesin 30 1 tab PO BEDTIME 08/29/22 10/15/23 mg-600 mg tablet extended gyernqb10 hr (Mucinex DM) methocarbamol 500 mg tablet 500 mg PO TID PRN Muscle Spasm 08/29/22 10/15/23 metoprolol succinate 25 mg 25 mg PO DAILY 08/29/22 10/15/23 tablet,extended release 24 hr multivitamin 1 tab PO DAILY 08/29/22 10/15/23 promethazine 25 mg tablet 25 mg PO Q6H PRN Nausea 08/29/22 10/15/23 fluticasone propionate 50 2 spray intranasal BID 11/07/22 10/15/23 mcg/actuation nasal spray,suspension albuterol sulfate 2.5 mg/3 mL 2.5 mg inhalation 4XD PRN wheezing 08/01/23 10/15/23 (0.083 %) solution for nebulization budesonide 0.5 mg/2 mL suspension 0.5 mg inhalation BID 08/01/23 10/15/23 for nebulization empagliflozin 10 mg tablet 10 mg PO DAILY 08/01/23 10/15/23 (Jardiance) mexiletine 150 mg capsule 150 mg PO BID 08/01/23 10/15/23 montelukast 10 mg tablet 10 mg PO BEDTIME 08/01/23 10/15/23 sacubitril 24 mg-valsartan 26 mg 1 tab PO BID 08/01/23 10/15/23 tablet (Entresto) furosemide 80 mg tablet 80 mg PO BID 10/15/23 10/15/23 Previous Rx's Medication Instructions Recorded prednisone 20 mg tablet See Rx Instructions .Route 08/09/23 .COMPLEX #10 tabs pantoprazole 40 mg tablet,delayed 40 mg PO BID #60 tabs 10/07/23 release (Protonix) Allergies Allergy/AdvReac Type Severity Reaction Status Date / Time bee pollen Allergy Severe Anaphylaxis Verified 10/15/23 14:22 Fish Containing Products Allergy Severe Anaphylaxis Verified 10/15/23 14:22 shellfish derived Allergy Severe Anaphylaxis Verified 10/15/23 14:22 codeine Allergy Verified 10/15/23 14:22 erythromycin base Allergy Verified 10/15/23 14:22 iodine Allergy Rash Verified 10/15/23 14:22 latex Allergy Rash Verified 10/15/23 14:22 pamabrom [From Midol] Allergy Verified 10/15/23 14:22 doxycycline AdvReac Vomiting Verified 10/15/23 14:22 Review of Systems Review of Systems ROS Unobtainable: All systems reviewed & are unremarkable except as noted in HPI and below Patient History Medical History Cervical spondylosis Neck pain Cervical radiculopathy CAD (coronary artery disease) Congestive heart failure COPD (chronic obstructive pulmonary disease) Surgical History AICD (automatic cardioverter/defibrillator) present H/O heart artery stent Social History household members: spouse and none lives independently: Yes Smoking Status: Current every day smoker alcohol intake: current Smoking Status: Current every day smoker tobacco type: cigarettes alcohol intake frequency: holidays/special occasions only Substance Use Type: does not use Exam Narrative Exam Narrative: GENERAL: Alert and oriented x three, obese female in mild distress HEENT: Head normocephalic, atraumatic, EOMI, pupils reactive, face symmetric, moist mucous membranes NECK: Supple, full range of motion CARDIOVASCULAR: Regular rate and rhythm without murmurs, rubs or gallops. RESPIRATORY: Breath sounds equal bilaterally, slightly diminished, patient has expiratory wheezes bilaterally in upper and lower lobes. Mild tachypnea, no accessory muscle use. Patient is on 3-4 L in the room on OxyMask. ABDOMEN: Soft, nontender. Normoactive bowel sounds all 4 quadrants. No guarding or rebound, rigidity, no mass : No CVA tenderness EXTREMITIES: Normal range of motion, no clubbing or edema appreciated. Neurovascularly intact NEUROLOGICAL: Cranial nerves II through XII grossly intact. Moving all extremities SKIN: Warm, dry, no petechiae, no rashes or lesions. Initial Vital Signs Initial Vital Signs: Vital Signs Temperature 97.6 F 02/21/24 18:32 Pulse Rate 86 02/21/24 18:32 Respiratory Rate 15 02/21/24 18:32 Blood Pressure 123/84 02/21/24 18:32 Pulse Oximetry 97 02/21/24 18:32 Oxygen Delivery Method Room Air 02/21/24 18:32 Course Orders Ordered: ED Orders 02/21/24 21:05 Blood Culture Stat 02/21/24 21:27 ABG [Arterial Blood Gas] STAT 02/21/24 21:55 Education, smoking cessation ONGOING 02/21/24 21:59 Consult to Occupational Therapy Evaluate & Treat Consult to Physical Therapy Evaluate & Treat Acetaminophen (Acetaminophen 325 Mg Tablet) 650 mg PO Q6H PRN PRN Reason: Fever/Mild Pain (1-3) Albuterol/Ipratropium (Albuterol/Ipratropium 3 Ml Ampul) 3 ml INH RTQ4HR PRN PRN Reason: Shortness Of Breath Amiodarone HCl (Amiodarone 200 Mg Tablet) 100 mg PO DAILY [facility] Apixaban (Apixaban 5 Mg Tablet) 5 mg PO BID [facility] Budesonide (Budesonide 0.5 Mg/2 Ml Neb) 0.5 mg INH BID [facility] Fluticasone Propionate (Fluticasone 120 Roscoe/16 Gm Roscoe.Susp) 2 spray NASAL BID [facility] Azithromycin 500 mg/ Dextrose 250 mls @ 250 mls/hr IV Q24H [facility] Last Infusion: 02/21/24 23:49 Dose: Infused Documented By: Admin: 02/21/24 22:44 Dose: 250 mls/hr Documented By: TON Methylprednisolone (Methylprednisolone 125 Mg/2 Ml Vial) 60 mg IV Q6H [facility] Last Admin: 02/22/24 01:30 Dose: 60 mg Documented By: TON Metoprolol Succinate (Metoprolol Er 25 Mg Tablet) 25 mg PO DAILY [facility] Morphine Sulfate (Morphine 2 Mg/Ml Inj) 2 mg IV Q4HR PRN PRN Reason: Pain, Moderate (4-6) Last Admin: 02/22/24 03:48 Dose: 2 mg Documented By: TON Naloxone HCl (Naloxone 0.4 Mg/Ml Vial) 0.2 mg IV Q2MIN PRN PRN Reason: Opiate Reversal Nitroglycerin (Nitroglycerin 0.4 Mg Sl Tab) 0.4 mg SL [id number] PRN PRN Reason: Chest Pain Pantoprazole Sodium (Pantoprazole Dr 40 Mg Tablet) 40 mg PO BID [facility] Discontinued Medications Albuterol (Albuterol 2.5 Mg/3 Ml Neb (Adult)) 20 mg INH NOW ONE Stop: 02/21/24 19:01 Last Admin: 02/21/24 19:27 Dose: 20 mg Documented By: RAYMOND Albuterol/Ipratropium (Albuterol/Ipratropium 3 Ml Ampul) 3 ml INH NOW ONE Stop: 02/21/24 18:52 Last Admin: 02/21/24 18:55 Dose: 3 ml Documented By: RAYMOND Azithromycin 500 mg/ Dextrose 250 mls @ 250 mls/hr IV NOW ONE Stop: 02/21/24 21:57 Last Admin: 02/21/24 22:17 Dose: Not Given Documented By: TON Furosemide 60 mg/ Sodium (Chloride) 56 mls @ 112 mls/hr IV NOW ONE Stop: 02/21/24 21:58 Last Infusion: 02/21/24 22:41 Dose: Infused Documented By: Admin: 02/21/24 22:10 Dose: 112 mls/hr Documented By: TON Methylprednisolone (Methylprednisolone 125 Mg/2 Ml Vial) 125 mg IV NOW ONE Stop: 02/21/24 19:01 Last Admin: 02/21/24 19:23 Dose: 125 mg Documented By: ANISHA Methylprednisolone (Methylprednisolone 125 Mg/2 Ml Vial) 60 mg IV Q6H [facility] Last Admin: 02/21/24 22:18 Dose: Not Given Documented By: TON Potassium Chloride (Potassium Chloride 20 Meq Tab) 40 meq PO NOW ONE Stop: 02/21/24 21:22 Last Admin: 02/21/24 21:28 Dose: 40 meq Documented By: TON Potassium Chloride (Potassium Chloride 20 Meq/15 Ml Udc) 40 meq PO NOW ONE Stop: 02/22/24 03:41 Last Admin: 02/22/24 03:56 Dose: 40 meq Documented By: TON Vital Signs Vital signs: Vital Signs - 8 hr 02/21/24 21:30 02/21/24 21:30 02/21/24 22:00 Pulse Rate 93 H 93 H Respiratory Rate 27 H 22 Blood Pressure 133/71 Pulse Oximetry 96 96 Oxygen Delivery Method Oximask Oxygen Flow Rate 4 02/21/24 22:00 Pulse Rate Respiratory Rate Blood Pressure 131/60 Pulse Oximetry Oxygen Delivery Method Oxygen Flow Rate MDM - SOB/Dyspnea Lab Data 02/21/24 18:40 02/21/24 18:40 Labs: Lab Results 02/21/24 02/21/24 02/21/24 Range/Units 18:36 18:40 21:55 WBC 10.3 (4.5-11.0) X10^3/uL RBC 4.91 (4.0-5.2) X10^6/uL Hgb 12.9 (12.0-16.0) g/dL Hct 39.7 (36-46) % MCV 80.9 (80-100) fL MCH 26.3 (26-34) PG MCHC 32.6 (30-36) % RDW 22.2 H (11.6-14.8) % Plt Count 304 (150-400) X10^3/uL Neut % (Auto) 62.7 (50-75) % Lymph % (Auto) 24.6 L (25-40) % [place] % (Auto) 8.9 (3-14) % Eos % (Auto) 3.0 (2-4) % Baso % (Auto) 0.8 (0-2) % Neut # (Auto) 6400 (2322-6539) /uL Lymph # (Auto) 2500 (6938-9667) /uL [place] # (Auto) 900 (0-900) /uL Eos # (Auto) 300 (0-450) /uL Baso # (Auto) 100 (0-100) /uL RBC Morphology See below Anisocytosis 3+ H PT 10.8 (9.4-12.5) SECONDS INR 0.9 (0.9-1.3) ABG Sample Site Right radial ABG pH 7.34 L (7.35-7.45) ABG pCO2 56.3 H (35-45) mmHg ABG pO2 80 (80-100) mmHg ABG HCO3 30 H (23-27) mmol/L ABG Total CO2 31 H (23-27) mmol/L ABG O2 Saturation 95 (95-100) % ABG Base Excess 3.2 H (-2-3) mmol/L Jai Test Positive O2 Delivery Device Cannula FiO2 % 36 % % Sodium 137 (137-145) mmol/L Potassium 3.2 L (3.4-5.1) mmol/L Chloride 101 (98-107) mmol/L Carbon Dioxide 29 (22-32) mmol/L BUN 16 (7-17) mg/dL Creatinine 1.04 (0.52-1.04) mg/dL Estimated GFR > 60 (>60) mL/min BUN/Creatinine Ratio 15.4 (6-22) Glucose 138 H (80-110) mg/dL Lactate 1.9 (0.7-2.1) mmol/L Calcium 9.8 (8.4-10.2) mg/dL Total Bilirubin 0.2 (0.2-1.3) mg/dL AST 23 (14-36) IU/L ALT 17 (<35) IU/L Alkaline Phosphatase 138 H (38-126) U/L Troponin I < 0.012 (0.01-0.034) ng/mL NT-Pro-B Natriuret Pep 785 H (<125) pg/mL Total Protein 6.9 (6.3-8.2) g/dL Albumin 3.8 (3.5-5.0) g/dL Globulin 3.1 (1.7-4.1) g/dL Albumin/Globulin Ratio 1.2 (1.0-2.8) Procalcitonin 0.093 (<0.5) ng/mL Chlamy pneumoniae PCR Not detected (Not Detect) Adenovirus (PCR) Not detected (Not Detect) B. pertussis DNA (PCR) Not detected (Not Detect) B.parapertussis DNA PCR Not detected (Not Detecte) Coronavirus OC43 (PCR) Not detected (Not Detect) Coronavirus HKU1 (PCR) Not detected (Not Detect) Coronavirus 229E (PCR) Not detected (Not Detect) SARS-CoV-2 (PCR) Not detected (Not Detecte) Coronavirus NL63 (PCR) Not detected (Not Detect) Human Metapneumovir PCR Not detected (Not Detect) Influenza Type A (PCR) Not detected (Not Detect) Influenza Type B (PCR) Not detected (Not Detect) M. pneumoniae (PCR) Not detected (Not Detect) Parainfluenza 1 (PCR) Not detected (Not Detect) Parainfluenza 2 (PCR) Not detected (Not Detect) Parainfluenza 3 (PCR) Not detected (Not Detect) Parainfluenza 4 (PCR) Not detected (Not Detect) RSV (PCR) Not detected (Not Detect) Entero/Rhino (PCR) Not detected (Not Detect) Imaging Data Chest x-ray: Radiologist's Impression: Bernarda Chong??58??F??1965 ? Allergy/Adv: bee pollen, Fish Containing Products, shellfish derived, codeine, erythromycin base, iodine, latex, pamabrom, doxycycline (More??) Close Chest X-Ray (Signed) Nabeel Olivera - 02/21/24 Telemetry Strips 10/04/23 Chest X-Ray (Signed) Marla Dennis - 10/04/23 Chest/Abdomen/Pelvis CT (Signed) Juan R Tee - 10/04/23 Telemetry Strips 08/01/23 Chest X-Ray (Signed) Ralph Guzman - 08/01/23 Chest X-Ray (Signed) Ralph Guzman - 08/01/[address] (Signed) Agustin Foster - 11/11/[address] (Signed) Agustin Foster - 11/11/22 Telemetry Strips 11/07/22 Telemetry Strips 11/07/[address] (Signed) Agustin Foster - 11/07/22 Chest X-Ray (Signed) Agustin Foster - 11/07/22 Telemetry Strips 08/29/22 Chest X-Ray (Signed) Azalea Coleman - 08/29/22 Echocardiogram Ultrasound (Signed) Pablo Graham - 07/17/22 Telemetry Strips 07/16/22 Telemetry Strips 07/16/22 Chest X-Ray (Signed) Agustin Foster - 07/16/22 Wrist X-Ray (Signed) Juan R Tee - 06/28/21 Knee X-Ray (Signed) Juan R Tee - 06/28/21 Hip X-Ray (Signed) Juan R Tee - 06/28/21 Elbow X-Ray (Signed) Juan R Tee - 06/28/21 Ankle X-Ray (Signed) Juan R Tee - 06/28/21 Telemetry Strips 06/28/21 Launch?[address] [address] XRay Report Signed Patient: Bernarda Chong MR#: [id number] : 1965 Acct:[id number] Age/Sex: 58 / F Date of Service: 02/21/24 Loc: ED Accession Number: [id number] Procedure: XR chest 1V Ordering Provider: Harper Dacosta D.O. PROCEDURE: XR CHEST 1V INDICATIONS: Shortness of breath TECHNIQUE: One view of the chest was acquired. COMPARISON: [facility], CT, CT CHEST ABD PEL W CON, 10/04/2023, 15:16. [facility], CR, XR CHEST FOR PICC 1V, 10/04/2023, 14:33. [facility], CR, XR CHEST FOR PICC 1V, 08/01/2023, 13:57. [facility], CR, XR CHEST 1V, 08/01/2023, 11:27. [facility], CR, XR CHEST 1V, 07/16/2022, 12:09. FINDINGS: Surgical changes and devices: Left pacemaker leads projecting over the right atrium, right ventricle, and coronary sinus Lungs and pleura: Mild central hilar opacification extending to the lung bases. No pleural effusions or pneumothorax. Mediastinum: Aortic arch calcifications. Cardiomegaly. Bones and chest wall: No suspicious bony lesions. Multiple chronic, healed, anterior rib fractures. Overlying soft tissues appear unremarkable. IMPRESSION: Mild CHF exacerbation versus findings that can be seen in the setting of aspiration. Dictated by: Nabeel Olivera M.D. on 02/21/2024 at 21:00 Approved by: Nabeel Olivera M.D. on 02/21/2024 at 21:04 ECG Data Attestation: I personally reviewed and interpreted this ECG as follows: Interpretation: Ventricularly paced rhythm rate 83, QRS of 176 QTC 571, no acute ST elevation. MDM Narrative Medical decision making narrative: 58-year-old female known history of COPD almost CHF complaint of increased difficulty breathing patient does have wheeze on exam improvement but still quite tachypneic after treatment. Show white count of 10 hemoglobin 12.9 platelets of 304, INR 0.9, potassium 3.2 sodium is 137 chloride 101 CO2 is 29 BUN 16 creatinine is 1.04 glucose is 139 lactate 1.9 troponins less than 0.012 with a BNP of 785. 2000: Rechecked patient's wheeze has not improved still sounds rhonchorous. Chest x-ray mild CHF exacerbation findings seen in the setting of aspiration EKG shows paced rhythm. Patient received DuoNeb, 20 mg albuterol, Solu-Medrol, potassium. On recheck patient is wheeze has not improved she still feels quite short of breath, she was still tachypneic 4 L which is slightly more than her usual of 3 L. patient has rhonchorous on exam. ABG is ordered but not resulted. Patient felt appropriate for admission, wheezes improved but patient is still quite tachypneic and has not had recurrent admissions for respiratory failure in the past and felt likely to be high for decompensation. Spoke with tele hospitalist Dr Valerio, accepts plan for inpatient for acute exacerbation COPD and likely CHF does ask that we give Lasix here in the department as well as azithromycin. ABG is currently pending. Nursing also asked to update Dr. Valerio, patient had stated that she does not use any form of CPAP or machines at home but does have a trilogy. Sounds like she has not using it regularly and has refused BiPAP here in the past. Discharge Plan Departure Patient Disposition: Admitted As Inpatient Clinical Impression: Acute exacerbation of chronic obstructive pulmonary disease Admit Date/Time: 02/21/24 22:07 Admit Provider: Bossman Valerio
[2024-02-21 19:21] LABS: NT-proBNP (BNP-Adult 18+) 785 pg/mL (<125); Troponin I < 0.012 ng/mL (0.01-0.034)
[2024-02-21 19:22] LABS: Anisocytosis 3+
[2024-02-21] MEDS: methylPREDNISolone 125 MG/2 ML VIAL IV (19:23)
[2024-02-21] MEDS: ALBUTEROL 2.5 MG/3 ML NEB (ADULT) 20 MG INH (19:27)
[2024-02-21 20:36] LABS: Procalcitonin 0.093 ng/mL (<0.5)
[2024-02-21 21:13] LABS: Adenovirus Not Detected (Not Detect); B. parapertussis Not Detected (Not Detecte); Bordetella pertussis Not Detected (Not Detect); Chlamydophila pneumoniae Not Detected (Not Detect); Coronavirus 229E Not Detected (Not Detect); Coronavirus HKU1 Not Detected (Not Detect); Coronavirus NL 63 Not Detected (Not Detect); Coronavirus OC43 Not Detected (Not Detect); Human Metapneumovirus Not Detected (Not Detect); Human Rhinovirus/Enterovirus Not Detected (Not Detect); Influenza A Not Detected (Not Detect); Influenza B Not Detected (Not Detect); Mycoplasma pneumoniae Not Detected (Not Detect); Parainfluenza Virus 1 Not Detected (Not Detect); Parainfluenza Virus 2 Not Detected (Not Detect); Parainfluenza Virus 3 Not Detected (Not Detect); Parainfluenza Virus 4 Not Detected (Not Detect); Respiratory Syncytial Virus Not Detected (Not Detect); SARS- CoV-2 Not Detected (Not Detecte)
--- NOTE | 2024-02-21 21:19 | PC.NURSE ---
Addendum entered by Yara Tang R.N. 02/21/24 21:22: blood culture set 2 drawn Original Note: left wrist PIV attempt with labs obtained by syringe - no kurin used, unable to flush PIV past valve and PIV removed.
--- NOTE | 2024-02-21 21:21 | PC.NURSE ---
blood culture set 1 drawn from Left FA PIV with syringe
[2024-02-21] MEDS: POTASSIUM CHLORIDE 20 MEQ TAB 40 MEQ PO (21:28)
[2024-02-21 21:59] LABS: Allen Test for ABG Passed? Positive; Base Excess ABG 3.2 mmol/L (-2-3); Blood Gas Collection Site Right Radial; Delivery System Cannula; HCO3 ABG 30 mmol/L (23-27); Oxygen Saturation ABG 95 % (95-100); PCO2 ABG 56.3 mmHg (35-45); PO2 ABG 80 mmHg (80-100); TCO2 ABG 31 mmol/L (23-27); pH ABG 7.34 (7.35-7.45)
[2024-02-21] MEDS: FUROSEMIDE 60 MG in SODIUM CHLORIDE 0.9% 50 ML 112 MG IV (22:10)
[2024-02-21] MEDS: AZITHROMYCIN 500 MG in DEXTROSE 5% IN WATER 250 ML 250 MG IV (22:44)
[2024-02-22] VITALS (44 sets, daily range): BP systolic 92–129; BP diastolic 44–72; PULSE 54–92; RESP 13–36; TEMP 36.3; O2SAT 95–100; BMI 43.9
[2024-02-22] MEDS: methylPREDNISolone 125 MG/2 ML VIAL 60 MG IV ×4 (01:30→21:06)
--- NOTE | 2024-02-22 03:31 | PC.NURSE ---
Patient used call light to inform this nurse she is having sudden inset chest pain 10/14. Dr. Valerio notified immediately. Verbal order for EKG and troponin.
--- NOTE | 2024-02-22 03:32 | EKG_ITS ---
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
--- NOTE | 2024-02-22 03:38 | P.HP_ITS ---
History of Present Illness History of Present Illness Chief complaint: SOB Narrative: 58 year old female with past medical history of COPD on 3 L of O2 at baseline, chronic systolic heart failure with EF 25% with pacemaker and afib on Eliquis presents with complaint of increase shortness of breath. Per the patient report, the patient has had worsening shortness of breath over the last three weeks. The patient Was seen in her surgical [facility] clinic today and was told that she had low potassium and need to come into our ER for further evaluation. The patient states that she has been having shortness of breath, but denies any chest pain. The patient does have a worsening nonproductive cough and has required her to increase her O2 up to 4 L over the last few days. Otherwise the patient denies any nausea, vomiting, diarrhea, or syncope. In our emergency room, the patient was hemodynamically stable but require 4L of O2 per NC. Lab was only abnormal for potassium of 3.2 and a BMP of 785. Chest x- ray shows possible volume overload. The patient was treated with duonebs, solumedrol and 60 IV Lasix. [facility] Medical History Cervical spondylosis Neck pain Cervical radiculopathy CAD (coronary artery disease) Congestive heart failure COPD (chronic obstructive pulmonary disease) Surgical History AICD (automatic cardioverter/defibrillator) present H/O heart artery stent Social History household members: spouse and none lives independently: Yes Smoking Status: Current every day smoker alcohol intake: current Meds Home Medications and Allergies Home Medications Medication Instructions Recorded Confirmed Type albuterol sulfate 90 mcg/actuation 2 puff inhalation QID PRN 07/17/22 10/15/23 History aerosol inhaler (Ventolin HFA) Shortness Of Breath amiodarone 200 mg tablet 100 mg PO DAILY 07/17/22 10/15/23 History apixaban 5 mg tablet (Eliquis) 5 mg PO BID 07/17/22 10/15/23 History albuterol sulfate 90 mcg/actuation 2 inh inhalation Q4H PRN Shortness 08/29/22 10/15/23 History breath activated powder inhaler Of Breath (ProAir RespiClick) dextromethorphan-guaifenesin 30 1 tab PO BEDTIME 08/29/22 10/15/23 History mg-600 mg tablet extended hr (Mucinex DM) methocarbamol 500 mg tablet 500 mg PO TID PRN Muscle Spasm 08/29/22 10/15/23 History metoprolol succinate 25 mg 25 mg PO DAILY 08/29/22 10/15/23 History tablet,extended release 24 hr multivitamin 1 tab PO DAILY 08/29/22 10/15/23 History promethazine 25 mg tablet 25 mg PO Q6H PRN Nausea 08/29/22 10/15/23 History fluticasone propionate 50 2 spray intranasal BID 11/07/22 10/15/23 History mcg/actuation nasal spray,suspension albuterol sulfate 2.5 mg/3 mL 2.5 mg inhalation 4XD PRN wheezing 08/01/23 10/15/23 History (0.083 %) solution for nebulization budesonide 0.5 mg/2 mL suspension 0.5 mg inhalation BID 08/01/23 10/15/23 History for nebulization empagliflozin 10 mg tablet 10 mg PO DAILY 08/01/23 10/15/23 History (Jardiance) mexiletine 150 mg capsule 150 mg PO BID 08/01/23 10/15/23 History montelukast 10 mg tablet 10 mg PO BEDTIME 08/01/23 10/15/23 History sacubitril 24 mg-valsartan 26 mg 1 tab PO BID 08/01/23 10/15/23 History tablet (Entresto) prednisone 20 mg tablet See Rx Instructions .Route 08/09/23 10/15/23 Rx .COMPLEX #10 tabs pantoprazole 40 mg tablet,delayed 40 mg PO BID #60 tabs 10/07/23 10/15/23 Rx release (Protonix) furosemide 80 mg tablet 80 mg PO BID 10/15/23 10/15/23 History Allergies Allergy/AdvReac Type Severity Reaction Status Date / Time bee pollen Allergy Severe Anaphylaxis Verified 10/15/23 14:22 Fish Containing Products Allergy Severe Anaphylaxis Verified 10/15/23 14:22 shellfish derived Allergy Severe Anaphylaxis Verified 10/15/23 14:22 codeine Allergy Verified 10/15/23 14:22 erythromycin base Allergy Verified 10/15/23 14:22 iodine Allergy Rash Verified 10/15/23 14:22 latex Allergy Rash Verified 10/15/23 14:22 pamabrom [From Midol] Allergy Verified 10/15/23 14:22 doxycycline AdvReac Vomiting Verified 10/15/23 14:22 Review of Systems Review of Systems ROS: Yes All systems reviewed with the patient and are negative except as otherwise documented Exam Vital Signs (past 8 hours): - 02/21/24 20:00 02/21/24 20:00 02/21/24 20:11 Pulse Rate 87 79 Respiratory Rate 30 H 26 H Blood Pressure 140/56 L 140/56 L Pulse Oximetry 87 L 96 Oxygen Delivery Method Room Air Aerosol Mask Oxygen Flow Rate 9 02/21/24 20:30 02/21/24 20:31 02/21/24 20:31 Pulse Rate 83 81 Respiratory Rate 18 20 Blood Pressure 120/51 L Pulse Oximetry 97 98 Oxygen Delivery Method Oxygen Flow Rate 02/21/24 21:00 02/21/24 21:00 02/21/24 21:30 Pulse Rate 88 93 H Respiratory Rate 37 H 27 H Blood Pressure 130/59 L Pulse Oximetry 94 96 Oxygen Delivery Method Oximask Oximask Oxygen Flow Rate 4 4 02/21/24 21:30 02/21/24 22:00 02/21/24 22:00 Pulse Rate 93 H Respiratory Rate 22 Blood Pressure 133/71 131/60 Pulse Oximetry 96 Oxygen Delivery Method Oxygen Flow Rate 02/21/24 22:31 02/21/24 22:31 02/21/24 23:00 Pulse Rate 90 90 Respiratory Rate 25 H 23 Blood Pressure 114/57 L Pulse Oximetry 96 94 Oxygen Delivery Method Oxygen Flow Rate 02/21/24 23:00 02/21/24 23:23 02/21/24 23:23 Pulse Rate 99 H Respiratory Rate 28 H Blood Pressure 128/60 116/56 L Pulse Oximetry 97 Oxygen Delivery Method Oximask Oxygen Flow Rate 4 02/21/24 23:30 02/21/24 23:30 02/22/24 00:00 Pulse Rate 90 87 Respiratory Rate 24 24 Blood Pressure 111/55 L Pulse Oximetry 96 96 Oxygen Delivery Method Oximask Oxygen Flow Rate 4 02/22/24 00:00 02/22/24 00:30 02/22/24 00:30 Pulse Rate 83 Respiratory Rate 21 Blood Pressure 105/56 L 126/57 L Pulse Oximetry 96 Oxygen Delivery Method Oximask Oxygen Flow Rate 4 02/22/24 01:00 02/22/24 01:01 02/22/24 01:01 Pulse Rate 85 84 Respiratory Rate 23 26 H Blood Pressure 108/52 L Pulse Oximetry 96 96 Oxygen Delivery Method Oximask Oxygen Flow Rate 4 02/22/24 01:30 02/22/24 01:30 02/22/24 02:00 Pulse Rate 85 87 Respiratory Rate 24 22 Blood Pressure 120/67 Pulse Oximetry 98 96 Oxygen Delivery Method Oximask Oximask Oxygen Flow Rate 4 4 02/22/24 02:00 02/22/24 02:30 02/22/24 02:30 Pulse Rate 86 Respiratory Rate 25 H Blood Pressure 123/72 116/55 L Pulse Oximetry 96 Oxygen Delivery Method Oximask Oxygen Flow Rate 4 02/22/24 03:00 02/22/24 03:00 Pulse Rate 82 Respiratory Rate 26 H Blood Pressure 92/53 L Pulse Oximetry 95 Oxygen Delivery Method Nasal Cannula Oxygen Flow Rate 4 Oxygen Delivery Method Nasal Cannula Oxygen Flow Rate 4 Narrative Exam Narrative: GENERAL: The patient is not in any acute distressed. Awake and alert. HEENT: Nonicteric sclerae, PERRLA, EOMI. Oropharynx clear. Moist mucous membranes. Conjunctivae appear well perfused. HEART: Regular rate and rhythm without murmurs. No lower extremities edema. LUNGS: Clear to auscultation bilaterally. No wheezing, crackles or rhonchi ABDOMEN: Soft, positive bowel sounds, nontender. SKIN: No rash, no excessive bruising, petechiae, or purpura. NEUROLOGIC: AxO x 3. Cranial nerves II-XII intact without motor/sensory deficit. Objective Labs 02/21/24 18:40 02/21/24 18:40 Labs: Laboratory Results - last 24 hr 02/21/24 02/21/24 02/21/24 18:36 18:40 21:55 WBC 10.3 RBC 4.91 Hgb 12.9 Hct 39.7 MCV 80.9 MCH 26.3 MCHC 32.6 RDW 22.2 H Plt Count 304 Neut % (Auto) 62.7 Lymph % (Auto) 24.6 L [place] % (Auto) 8.9 Eos % (Auto) 3.0 Baso % (Auto) 0.8 Neut # (Auto) 6400 Lymph # (Auto) 2500 [place] # (Auto) 900 Eos # (Auto) 300 Baso # (Auto) 100 RBC Morphology See below Anisocytosis 3+ H PT 10.8 INR 0.9 ABG Sample Site Right radial ABG pH 7.34 L ABG pCO2 56.3 H ABG pO2 80 ABG HCO3 30 H ABG Total CO2 31 H ABG O2 Saturation 95 ABG Base Excess 3.2 H Jai Test Positive O2 Delivery Device Cannula FiO2 % 36 % Sodium 137 Potassium 3.2 L Chloride 101 Carbon Dioxide 29 BUN 16 Creatinine 1.04 Estimated GFR > 60 BUN/Creatinine Ratio 15.4 Glucose 138 H Lactate 1.9 Calcium 9.8 Total Bilirubin 0.2 AST 23 ALT 17 Alkaline Phosphatase 138 H Troponin I < 0.012 NT-Pro-B Natriuret Pep 785 H Total Protein 6.9 Albumin 3.8 Globulin 3.1 Albumin/Globulin Ratio 1.2 Procalcitonin 0.093 Chlamy pneumoniae PCR Not detected Adenovirus (PCR) Not detected B. pertussis DNA (PCR) Not detected B.parapertussis DNA PCR Not detected Coronavirus OC43 (PCR) Not detected Coronavirus HKU1 (PCR) Not detected Coronavirus 229E (PCR) Not detected SARS-CoV-2 (PCR) Not detected Coronavirus NL63 (PCR) Not detected Human Metapneumovir PCR Not detected Influenza Type A (PCR) Not detected Influenza Type B (PCR) Not detected M. pneumoniae (PCR) Not detected Parainfluenza 1 (PCR) Not detected Parainfluenza 2 (PCR) Not detected Parainfluenza 3 (PCR) Not detected Parainfluenza 4 (PCR) Not detected RSV (PCR) Not detected Entero/Rhino (PCR) Not detected Assessment & Plan Assessment & Plan narrative: COPD exacerbation. Admit the patient to medical telemetry as inpatient. Continue Solumedrol, duonebs and empiric Azhthromycin for possible acute bronchitis. Mild acute on chronic systolic heart failure with EF 25%. S/p IV Lasix 60 mg x 1in the ER. Monitor volume status with strict I/Os, daily weight. Will hold any further IV lasix and reevaluate in the morning. Hold Home oral Lasix. Resume home eliquis. Acute and chronic respiratory failure with hypoxemia. Patient baseline is 3 L now on 4 L. Likely from above. Treat as above and wean down oxygen. Afib. Resume home Amiodarone, Metoprolol and Eliquis. Hypokalemia. Replace and monitor. DVT prophylaxis Eliquis. Code status full code Disposition likely in 2 days Time-Based Coding :: [TOTAL MINUTES] spent with patient and on the chart (including review of chart, obtaining history, exam, reviewing outside data, placing orders, documenting exam and treatment plan, and counseling patient) on [DATE].
[2024-02-22] MEDS: MORPHINE 2 MG/ML INJ IV ×2 (03:48→21:53)
[2024-02-22] MEDS: POTASSIUM CHLORIDE 20 MEQ/15 ML UDC 40 MEQ PO (03:56)
--- NOTE | 2024-02-22 04:02 | PC.NURSE ---
Reassessed CP after 2mg morphine given.Patient reports relief, CP 07/[address] Valerio notified. Troponin pending results. No new orders at this time.
[2024-02-22 04:20] LABS: Troponin I < 0.012 ng/mL (0.01-0.034)
[2024-02-22 07:20] LABS: Add Manual Diff / Slide Review NO; Basophils Absolute Auto 0 /uL (0-100); Basophils Percent Auto 0.3 % (0-2); Eosinophils Absolute Auto 0 /uL (0-450); Hematocrit 38.6 % (36-46); Hemoglobin 12.1 g/dL (12.0-16.0); Lymphocytes Absolute Auto 500 /uL (1100-4500); Lymphocytes Percent Auto 4.1 % (25-40); Mean Corpuscular HGB Conc 31.5 % (30-36); Mean Corpuscular Hemoglobin 25.7 PG (26-34); Mean Corpuscular Volume 81.8 fL (80-100); Monocytes Absolute Auto 100 /uL (0-900); Monocytes Percent Auto 0.8 % (3-14); Neutrophils Absolute Auto 11700 /uL (1500-7000); Neutrophils Percent Auto 94.8 % (50-75); Platelet Count 276 X10^3/uL (150-400); Red Blood Cell Count 4.72 X10^6/uL (4.0-5.2); White Blood Cell Count 12.3 X10^3/uL (4.5-11.0)
[2024-02-22 07:51] LABS: Alanine Aminotransferase 55 IU/L (<35); Albumin 3.9 g/dL (3.5-5.0); Albumin Globulin Ratio 1.6 (1.0-2.8); Alkaline Phosphatase 121 U/L (38-126); Aspartate Aminotransferase 21 IU/L (14-36); BUN Creatinine Ratio 18.8 (6-22); Bilirubin Total 0.3 mg/dL (0.2-1.3); Blood Urea Nitrogen 21 mg/dL (7-17); Calcium 9.8 mg/dL (8.4-10.2); Carbon Dioxide 20 mmol/L (22-32); Chloride 102 mmol/L (98-107); Estimated Glomerular Filt Rate 56 mL/min (>60); Globulin 2.5 g/dL (1.7-4.1); Glucose 263 mg/dL (80-110); HEMOLYSIS < 15 (0-50); Sodium 137 mmol/L (137-145); Total Protein 6.4 g/dL (6.3-8.2)
[2024-02-22] MEDS: BUDESONIDE 0.5 MG/2 ML NEB INH ×2 (08:24→18:39)
[2024-02-22] MEDS: ALBUTEROL/IPRATROPIUM 3 ML AMPUL INH ×4 (08:24→23:42)
[2024-02-22 08:39] LABS: Anisocytosis 2+
[2024-02-22] MEDS: PANTOPRAZOLE DR 40 MG TABLET PO ×2 (09:48→20:57)
[2024-02-22] MEDS: METOPROLOL ER 25 MG TABLET PO (09:49)
[2024-02-22] MEDS: APIXABAN 5 MG TABLET PO ×2 (09:50→20:57)
[2024-02-22] MEDS: AMIODARONE 200 MG TABLET 100 MG PO (09:50)
[2024-02-22] MEDS: FLUTICASONE 120 SPRAY/16 GM SPRAY.SUSP NASAL ×2 (09:53→21:14)
--- NOTE | 2024-02-22 10:03 | PC.NURSE ---
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 She cannot tolerate the mask on her face. She stated that she has tried various types and they call cause the same issue. NC have to be turn upside down due to her nose having issues bleeding if not.
--- NOTE | 2024-02-22 10:22 | PT.IIE ---
Current Diagnoses Acute on chronic systolic (congestive) heart failure (02/21/24) Surgical History (Last Reviewed 02/21/24 @ 21:23 by Harper Dacosta DO) AICD (automatic cardioverter/defibrillator) present H/O heart artery stent Medical History (Last Reviewed 02/21/24 @ 21:23 by Harper Dacosta DO) CAD (coronary artery disease) Cervical radiculopathy Cervical spondylosis Congestive heart failure COPD (chronic obstructive pulmonary disease) Neck pain Physical Therapy Inpatient Evaluation/Re-Eval M1 PT/OT-IP Prior Functional Status Start: 02/22/24 11:42 Freq: NEEDED Status: Active Protocol: Document 02/22/24 10:22 AB (Rec: 02/22/24 11:56 AB [id number]) Medical Review Prior Functional Status Medical History Reviewed Yes Communication able to make needs known Mobility and Gait pt stated that she was modified independent with all mobilities and ambulation using a SPC for short distance ambulation; uses her power w/ c for outdoor/long distance mobility Social History Household Members spouse,none Living Arrangements RV Number of Floors (Floors) One Floor Number of Stairs To Enter/Railing? 5 steps R rail to enter 3 steps without rails but B jay to get to the bathroom 1 step from kitchen to the living room Home Environment Standard Height Toilet,Walk in Shower Home Equipment Straight Cane,Power Wheelchair /Scooter,Shower Seat without Backrest,Hand Held Shower,Grab Bars In Shower Additional Social History Comment pt stated that her spouse can assist her some when needed but not a whole lot; stated that her grand daughter checks on her 3-4x/week to assist M2 PT-IP Current Condition Start: 02/22/24 11:42 Freq: NEEDED Status: Active Protocol: Document 02/22/24 10:22 AB (Rec: 02/22/24 11:56 AB [id number]) Physical Therapy Current Condition Current Condition Evaluation Date 02/22/24 Treatment Diagnosis COPD exacerbation; difficulty in walking Onset Date 02/22/24 M3 PT-IP Subjective Start: 02/22/24 11:42 Freq: NEEDED Status: Active Protocol: Document 02/22/24 10:22 AB (Rec: 02/22/24 11:56 AB [id number]) Subjective Physical Therapy Visit Type Type Initial Evaluation Visit Start Time 10:22 Visit Stop Time 10:50 Number of POULTRY BONER Visits 0 Physical Therapy Visit Comments Patient Comments agreeable to do PT M4 PT-IP Mobility and Gait Start: 02/22/24 11:42 Freq: NEEDED Status: Active Protocol: Document 02/22/24 10:22 AB (Rec: 02/22/24 11:56 AB [id number]) PT-Bed Mobility Assessment Supine to Sit Supine to Sit Independent,Head of Bed Elevated Sit to Supine Sit to Supine Independent,Head of Bed Elevated PT-Transfer Assessment Sit to and From Stand Sit to and from Stand Standby Assistance,1 Person Assistance,Use of Upper Extremities Equipment Transfer Assistive Device Gait Belt,Front Wheeled Walker Orthotic/Prosthetic Devices or Brace: No Comments Mobility Comments pt in bed and agreed to do PT. obtained PLOF and home set up from pt. O2 sat with 3L/min: 96-97% but with SOB pt completed supine to sit mod I with HOB elevated. pt is impulsive. sit to stand SBA and pt took O2 off. stated that it is too much for walking. assisted pt to put O2 back on. pt ambulated in room ~ 20 ft SBA to CGA using FWW. CGA midway with ambulation due to SOB with increase unsteadiness with standing. pt needed standing rest breaks in between ambulation. pt ambulated back to bed and lay back in bed SBA . O2 sat: 97%. c/o a headache and stated that she feels this when her BP is low. BP: 112/ 55. positioned pt in bed. informed nurse regarding c/o headache and BP. Gait Assessment Gait Gait Assistance Required: Standby Assistance,Contact Guard Assist Distance (Feet) 20 Able to Maintain Weight Bearing Status Yes During Gait Assistive Devices Assistive Device Gait Belt,Front Wheeled Walker Orthotic/Prosthetic Devices or Brace: No Gait Deviations General Gait Pattern Decreased Stride Length, Decreased Feet Clearance Factors Limiting Gait Function Factors Limiting Gait Function Decreased Activity Tolerance, Decreased Strength,Limited Range of Motion,Poor Balance, Poor Safety Awareness PT-Balance Assessment Sitting Balance and Reactions Static Sitting Balance Ability Normal Dynamic Sitting Balance Ability Good Standing Balance and Reactions Static Standing Balance Ability Fair Dynamic Standing Balance Ability Fair Device Used FWW M5 PT-IP Objective Assessments Start: 02/22/24 11:42 Freq: NEEDED Status: Active Protocol: Document 02/22/24 10:22 AB (Rec: 02/22/24 11:56 AB [id number]) Orientation Orientation/Cognition Level of Alertness Alert Orientation Name,Situation Safety Awareness Decreased Safety Awareness Memory Description No Deficits Noted Gross Range of Motion Lower Extremity ROM Assessment Within Functional Limits Strength Lower Extremity Strength Hip 3+/5 Knee 4-/5 Coordination Assessment Gross Coordination Gross Coordination WNL Sensation Assessment Sensation Gross Sensation WNL Muscle Tone Muscle Tone WNL Yes M6 PT-IP Treatment Start: 02/22/24 11:42 Freq: NEEDED Status: Active Protocol: Document 02/22/24 10:22 AB (Rec: 02/22/24 11:56 AB [id number]) Physical Therapy Treatment Education Education Provided Safety M7 PT-IP Assessment and Plan Start: 02/22/24 11:42 Freq: NEEDED Status: Active Protocol: Document 02/22/24 10:22 AB (Rec: 02/22/24 11:56 AB [id number]) PT Summary Assessment and Plan Potential Rehabilitation Potential Fair Status of Condition at Evaluation Evolving Summary Impairments Pain,ROM,Strength,Balance, Coordination,Sensation,Tone, Cognition,Bed Mobility, Transfers,Gait,Activity Tolerance Assessment Summary pt is a 58 y/o F who presented with SOB and admitted for COPD exacerbation. pt is mod I with bed mobility, SBA with transfers but required SBA to [facility] with ambulation using FWW. presents with decrease activity tolerance with (+) SOB during ambulation limiting mobility. pt will continue PT in hospital to improve overall strength and activity tolerance to safely go home. pt will benefit from HHPT. Goals Transfer Goal Independent,Front Wheeled Walker Gait Goal Independent,Front Wheel Walker Gait Distance 100 Other Goals improve transfers and ambulation using SPC ~ 100 ft mod I up/down 5 steps R rail SBA; up /down 3 steps without rails using SPC SBA Days to Meet Goals 10 Frequency of Treatment Frequency Of Treatment Once a Day Treatment Plan Physical Therapy Treatment Plan Bed Mobility Training,Transfer Training,Gait Training, Therapeutic Exercise,Balance Retraining,Discharge Planning, Hot or Cold Pack,Neuromuscular Re-ed,Coordination Retraining ,Manual Therapy Precautions Other Precautions O2 sat; falls Recommendations To Nursing Amount of Assist Needed 1 Person Assist Discharge Recommendations PT Discharge Recommendations Home with Assistance,Home Health Equipment Needed for Home Before FWW if not safe with SPC Discharge Transportation Needs at Discharge Private Vehicle,Wheelchair/ Cabulance
[2024-02-22] MEDS: ACETAMINOPHEN 325 MG TABLET 650 MG PO (11:14)
--- NOTE | 2024-02-22 11:17 | PC.NURSE ---
Patient stood up for PT and then she started having headache pain. she was given tylenol. will continue to monitor
[2024-02-22] MEDS: HYDROCODONE/ACET 5/325 TABLET 1 TAB PO ×2 (13:14→19:57)
--- NOTE | 2024-02-22 13:40 | OT.IP.EVAL ---
Current Diagnoses Acute on chronic systolic (congestive) heart failure (02/21/24) Past Medical History (Last Reviewed 02/21/24 @ 21:23 by Harper Dacosta DO) CAD (coronary artery disease) Cervical radiculopathy Cervical spondylosis Congestive heart failure COPD (chronic obstructive pulmonary disease) Neck pain Surgical History (Last Reviewed 02/21/24 @ 21:23 by Harper Dacosta DO) AICD (automatic cardioverter/defibrillator) present H/O heart artery stent Occupational Therapy Inpatient Evaluation/Re-Eval M1 PT/OT-IP Prior Functional Status Start: 02/22/24 11:42 Freq: NEEDED Status: Active Protocol: Document 02/22/24 13:42 [facility] (Rec: 02/22/24 13:56 [facility] [id number]) Medical Review Prior Functional Status Medical History Reviewed Yes Communication able to make needs known Mobility and Gait pt stated that she was modified independent with all mobilities and ambulation using a SPC for short distance ambulation; uses her power w/ c for outdoor/long distance mobility Activities of Daily Living and IADL's Pt states able to do ADL and IADL needs but at times needing increased time or assist especially to braid her hair due to shoulder pain- pt states has rotator cuff issues and degenerative discs in her neck. Social History Household Members spouse,none Living Arrangements RV Number of Floors (Floors) One Floor Number of Stairs To Enter/Railing? 5 steps R rail to enter 3 steps without rails but B jay to get to the bathroom 1 step from kitchen to the living room Home Environment Standard Height Toilet,Walk in Shower Home Equipment Straight Cane,Power Wheelchair /Scooter,Shower Seat without Backrest,Hand Held Shower,Grab Bars In Shower Additional Social History Comment pt stated that her spouse can assist her some when needed but not a whole lot; stated that her grand daughter checks on her 3-4x/week to assist M2 OT-IP Current Condition Start: 02/22/24 13:42 Freq: Status: Active Protocol: Document 02/22/24 13:42 [facility] (Rec: 02/22/24 13:56 [facility] [id number]) Occupational Therapy Current Condition Current Condition Evaluation Date 02/22/24 Treatment Diagnosis COPD exacerbation Diagnosis Onset Date 02/21/24 M3 OT- IP Subjective and Pain Start: 02/22/24 13:42 Freq: Status: Active Protocol: Document 02/22/24 13:42 [facility] (Rec: 02/22/24 13:56 [facility] [id number]) OT- Subjective Occupational Therapy Visit Type Type Initial Evaluation Visit Start Time 13:05 Visit Stop Time 13:40 Occupational Therapy Visit Comments Patient Comments Pt agreed to get up and work with OT. OT Pain Assessment Pain When Pain Assessed At Rest Pain Present Pain Present Pain Reported Location Neck Pain Behaviors Holding Area,[place] M4 OT- IP ADL's Start: 02/22/24 13:42 Freq: Status: Active Protocol: Document 02/22/24 13:42 [facility] (Rec: 02/22/24 13:56 [facility] [id number]) OT [id number] Comments OT Self-Feeding Comments Not at meal time. OT ADL-Grooming Comments OT Grooming Comments Not performed. Pt states at home needing assist for her hair as her arms cause her pain when holding them up for long periods of time. Suggested pt support her arms on the table when doing her hair, get a enlongated hair brush/ comb, or get assist. OT ADL-Oral Care Comments Oral Care Comments Not performed. OT ADL-Dressing General Eval Lower Body Dressing Ability Standby Assistance,Minimal Assistance Comments OT Dressing Comments Pt states when her legs swell that it is difficult to do her socks. Able to have pt practice use of sock aid and commercial lines account executive. In addition that it is hard for her to bend over to do LB dressing needs as she gets SOB at times. OT ADL-Toileting Comments OT Toileting Comments Pt not having to go. Pt states has no difficulty to wipe and able to show her toilet paper aid. OT ADL-Bathing Comments OT Bathing Comments Pt will benefit from assist at this time - mainly to assist with her hair. M5 OT- IP IADL's Start: 02/22/24 13:42 Freq: Status: Active Protocol: Document 02/22/24 13:42 [facility] (Rec: 02/22/24 13:56 [facility] [id number]) OT-Instrumental Activities of Daily Living Home Safety Awareness Awareness of Need for Assistance at Home Good Awareness Ability to Problem Solve Emergency Able to Problem Solve Situations Medication Management Medication Management No Deficits Identified Money Management Money Management No Deficits Identified Meal Preparation Meal Preparation Comments Pt will benefit from assist. Staple Side Laster Staple Side Laster Comments Pt will benefit from assist. M6 OT- IP Functional Cognition Start: 02/22/24 13:42 Freq: Status: Active Protocol: Document 02/22/24 13:42 [facility] (Rec: 02/22/24 13:56 [facility] [id number]) Cognitive Factors Limiting Selfcare Function Cognitive Ability Level of Alertness Alert Patient Orientation Name,Age,Birthday,Month,Date, Year,Day of Week,Place, Situation Attention Span Ability Capable of Focused Attention, Capable of Sustained Attention Cognitive Comments Cognitive Assessment Comments Pt able to follow commands for ADL and mobility needs. ABle to go over engery conservation techniques with pt. OT- Vision and Hearing OT- Hearing Assessment OT- Hearing Assessment WFL OT- Vision Assessment Visual Acuity WFL Visual Attentiveness WFL Occular Pursuits WFL M7 OT- IP Mobility and Balance Start: 02/22/24 13:42 Freq: Status: Active Protocol: Document 02/22/24 13:42 [facility] (Rec: 02/22/24 13:56 [facility] [id number]) OT- Bed Mobility Assessment Supine to Sit Supine to Sit Assist Independent Sit to Supine Sit to Supine Assist Independent OT- Balance Assessment Sitting Balance and Reactions Static Sitting Balance Ability Normal Dynamic Sitting Balance Ability Good M8 OT- IP Objective Assessments Start: 02/22/24 13:42 Freq: Status: Active Protocol: Document 02/22/24 13:42 [facility] (Rec: 02/22/24 13:56 [facility] [id number]) OT Gross Range of Motion Upper Extremity Range of Motion ROM Impairments Decreased at end ROM due to pain and weakness. OT Strength Upper Extremity Strength Assessment Bilaterally Impaired Comments Strength Comments BUE 3-/5 at shoulders to 4-/5 M9 OT- IP Assessment and Plan Start: 02/22/24 13:42 Freq: Status: Active Protocol: Document 02/22/24 13:42 [facility] (Rec: 02/22/24 13:56 [facility] [id number]) OT Summary Assessment and Plan Potential Rehabilitation Potential Good Analytic Complexity at Evaluation Low Summary OT Impairments Pain,Range of Motion,Strength, Balance,Functional Mobility, Dressing,Toileting,Bathing, Toilet Transfers,Shower Transfers,Activity Tolerance Progress Towards Goals Slow Progress due to Activity Tolerance Assessment Summary Pt low complexity and here due to COPD exacerbation and main barriers are steps, pain, and decreased activity tolerance. Able to go over ADL equipment needs and energy conservation techniques. Pt to go home with assist when medically stable. Goals Dressing Goal Independent Toileting Goal Independent Bathing Goal Standby Assistance Toilet Transfer Goal Independent Shower Transfer Goal Independent Days to Meet Goals 7 Frequency of Treatment Other frequency 5x/week Discharge Recommendations OT Discharge Recommendations Home with 27/11 Assist Available,Home Health Home Equipment Needs LB dressing equipment Transportation Needs at Discharge Private Vehicle
--- NOTE | 2024-02-22 16:25 | P.PN_ITS ---
Subjective Subjective Date Patient Seen: 02/22/24 Time Patient Seen: 08:55 Interval history: 58 year old female with past medical history of COPD on 3 L of O2 at baseline, chronic systolic heart failure with EF 25% with pacemaker and afib on Eliquis presents with complaint of increase shortness of breath. Per the patient report, the patient has had worsening shortness of breath over the last three weeks. The patient Was seen in her last inserter clinic today and was told that she had low potassium and need to come into our ER for further evaluation. The patient states that she has been having shortness of breath, but denies any chest pain. The patient does have a worsening nonproductive cough and has required her to increase her O2 up to 4 L over the last few days. Otherwise the patient denies any nausea, vomiting, diarrhea, or syncope. In our emergency room, the patient was hemodynamically stable but require 4L of O2 per NC. Lab was only abnormal for potassium of 3.2 and a BMP of 785. Chest x- ray shows possible volume overload. The patient was treated with duonebs, solumedrol and 60 IV Lasix. Interval history: Patient was feeling significantly improved with frequently miss her bronchodilators. Exam Vital Signs (past 8 hours): - 02/22/24 08:30 02/22/24 08:31 02/22/24 08:31 Temperature Pulse Rate 77 78 Respiratory Rate 24 23 Blood Pressure 123/57 L Pulse Oximetry 99 99 Oxygen Delivery Method Nasal Cannula Nasal Cannula Oxygen Flow Rate 4 4 02/22/24 09:15 02/22/24 09:15 02/22/24 09:30 Temperature Pulse Rate 86 89 Respiratory Rate 32 H 27 H Blood Pressure 101/55 L Pulse Oximetry 98 96 Oxygen Delivery Method Nasal Cannula Oxygen Flow Rate 4 02/22/24 09:30 02/22/24 09:49 02/22/24 09:53 Temperature Pulse Rate 87 Respiratory Rate Blood Pressure 115/68 121/55 L 121/55 L Pulse Oximetry Oxygen Delivery Method Oxygen Flow Rate 02/22/24 09:53 02/22/24 10:00 02/22/24 10:00 Temperature Pulse Rate 86 87 Respiratory Rate 27 H 35 H Blood Pressure 117/55 L Pulse Oximetry 98 97 Oxygen Delivery Method Nasal Cannula Nasal Cannula Oxygen Flow Rate 4 4 02/22/24 10:30 02/22/24 10:30 02/22/24 10:47 Temperature Pulse Rate 85 90 Respiratory Rate 19 13 Blood Pressure 115/60 Pulse Oximetry 98 97 Oxygen Delivery Method Nasal Cannula Nasal Cannula Oxygen Flow Rate 4 4 02/22/24 10:47 02/22/24 10:55 02/22/24 11:00 Temperature Pulse Rate 82 88 Respiratory Rate 14 36 H Blood Pressure 112/55 L 112/55 L Pulse Oximetry 99 96 Oxygen Delivery Method Room Air Nasal Cannula Oxygen Flow Rate 4 02/22/24 11:01 02/22/24 11:01 02/22/24 11:03 Temperature Pulse Rate 87 84 Respiratory Rate 28 H Blood Pressure 102/44 L Pulse Oximetry 97 97 Oxygen Delivery Method Nasal Cannula Nasal Cannula Oxygen Flow Rate 4 4 02/22/24 11:03 02/22/24 11:04 02/22/24 11:30 Temperature Pulse Rate 83 79 Respiratory Rate 27 H Blood Pressure 107/53 L 107/53 L Pulse Oximetry 98 Oxygen Delivery Method Nasal Cannula Oxygen Flow Rate 4 02/22/24 11:30 02/22/24 11:34 02/22/24 11:34 Temperature Pulse Rate 83 Respiratory Rate 15 Blood Pressure 97/50 L 110/58 L Pulse Oximetry 97 Oxygen Delivery Method Nasal Cannula Oxygen Flow Rate 4 02/22/24 12:13 02/22/24 15:49 Temperature 97.3 F L Pulse Rate 83 56 L Respiratory Rate 24 20 Blood Pressure 118/65 Pulse Oximetry 96 95 Oxygen Delivery Method Oximask Oxygen Flow Rate 3 3 Oxygen Delivery Method Oximask Oxygen Flow Rate 3 Narrative Exam Narrative: GENERAL: This is a well-nourished, well-developed patient, in [id number] respiratory distress initially, improving as the morning progressed. EYES: Pupils equal round and reactive. Extraocular motions intact. No scleral icterus. No injection or drainage. ENT: Mucous membranes pink and moist. NECK: Trachea midline. No JVD, bruits or lymphadenopathy. Supple, nontender, no meningeal signs. CARDIOVASCULAR: Regular rate and rhythm without murmurs, gallops, or rubs. RESPIRATORY: Diminished breath sounds throughout, scattered rhonchi, mid and expiratory wheeze. GASTROINTESTINAL: Abdomen soft, non-tender, nondistended. EXTREMITIES: Trace edema. NEUROLOGIC: Alert, oriented, speech fluent, full upper and lower motor strength, no focal deficits evident. DERMATOLOGIC: No rashes or skin lesions. Objective Labs 02/22/24 06:35 02/22/24 06:35 Labs: Laboratory Results - last 24 hr 02/21/24 02/21/24 02/21/24 18:36 18:40 21:55 WBC 10.3 RBC 4.91 Hgb 12.9 Hct 39.7 MCV 80.9 MCH 26.3 MCHC 32.6 RDW 22.2 H Plt Count 304 Neut % (Auto) 62.7 Lymph % (Auto) 24.6 L [place] % (Auto) 8.9 Eos % (Auto) 3.0 Baso % (Auto) 0.8 Neut # (Auto) 6400 Lymph # (Auto) 2500 [place] # (Auto) 900 Eos # (Auto) 300 Baso # (Auto) 100 RBC Morphology See below Anisocytosis 3+ H PT 10.8 INR 0.9 ABG Sample Site Right radial ABG pH 7.34 L ABG pCO2 56.3 H ABG pO2 80 ABG HCO3 30 H ABG Total CO2 31 H ABG O2 Saturation 95 ABG Base Excess 3.2 H Jai Test Positive O2 Delivery Device Cannula FiO2 % 36 % Sodium 137 Potassium 3.2 L Chloride 101 Carbon Dioxide 29 BUN 16 Creatinine 1.04 Estimated GFR > 60 BUN/Creatinine Ratio 15.4 Glucose 138 H Lactate 1.9 Calcium 9.8 Total Bilirubin 0.2 AST 23 ALT 17 Alkaline Phosphatase 138 H Troponin I < 0.012 NT-Pro-B Natriuret Pep 785 H Total Protein 6.9 Albumin 3.8 Globulin 3.1 Albumin/Globulin Ratio 1.2 Procalcitonin 0.093 Chlamy pneumoniae PCR Not detected Adenovirus (PCR) Not detected B. pertussis DNA (PCR) Not detected B.parapertussis DNA PCR Not detected Coronavirus OC43 (PCR) Not detected Coronavirus HKU1 (PCR) Not detected Coronavirus 229E (PCR) Not detected SARS-CoV-2 (PCR) Not detected Coronavirus NL63 (PCR) Not detected Human Metapneumovir PCR Not detected Influenza Type A (PCR) Not detected Influenza Type B (PCR) Not detected M. pneumoniae (PCR) Not detected Parainfluenza 1 (PCR) Not detected Parainfluenza 2 (PCR) Not detected Parainfluenza 3 (PCR) Not detected Parainfluenza 4 (PCR) Not detected RSV (PCR) Not detected Entero/Rhino (PCR) Not detected 02/22/24 02/22/24 03:39 06:35 WBC 12.3 H RBC 4.72 Hgb 12.1 Hct 38.6 MCV 81.8 MCH 25.7 L MCHC 31.5 RDW 22.0 H Plt Count 276 Neut % (Auto) 94.8 H D Lymph % (Auto) 4.1 L D [place] % (Auto) 0.8 L Eos % (Auto) 0.0 L Baso % (Auto) 0.3 Neut # (Auto) 44326 H Lymph # (Auto) 500 L [place] # (Auto) 100 Eos # (Auto) 0 Baso # (Auto) 0 RBC Morphology See below Anisocytosis 2+ H PT INR ABG Sample Site ABG pH ABG pCO2 ABG pO2 ABG HCO3 ABG Total CO2 ABG O2 Saturation ABG Base Excess Jai Test O2 Delivery Device FiO2 % Sodium 137 Potassium 4.0 Chloride 102 Carbon Dioxide 20 L BUN 21 H Creatinine 1.12 H Estimated GFR 56 L BUN/Creatinine Ratio 18.8 Glucose 263 H D Lactate Calcium 9.8 Total Bilirubin 0.3 AST 21 ALT 55 H Alkaline Phosphatase 121 Troponin I < 0.012 NT-Pro-B Natriuret Pep Total Protein 6.4 Albumin 3.9 Globulin 2.5 Albumin/Globulin Ratio 1.6 Procalcitonin Chlamy pneumoniae PCR Adenovirus (PCR) B. pertussis DNA (PCR) B.parapertussis DNA PCR Coronavirus OC43 (PCR) Coronavirus HKU1 (PCR) Coronavirus 229E (PCR) SARS-CoV-2 (PCR) Coronavirus NL63 (PCR) Human Metapneumovir PCR Influenza Type A (PCR) Influenza Type B (PCR) M. pneumoniae (PCR) Parainfluenza 1 (PCR) Parainfluenza 2 (PCR) Parainfluenza 3 (PCR) Parainfluenza 4 (PCR) RSV (PCR) Entero/Rhino (PCR) [facility] Medical History Cervical spondylosis Neck pain Cervical radiculopathy CAD (coronary artery disease) Congestive heart failure COPD (chronic obstructive pulmonary disease) Surgical History AICD (automatic cardioverter/defibrillator) present H/O heart artery stent Social History household members: spouse and none lives independently: Yes Smoking Status: Current every day smoker alcohol intake: current Assessment & Plan Assessment & Plan narrative: 1. COPD exacerbation. Admitted to medical telemetry as inpatient. Continue Solumedrol, duonebs and empiric azithromycin for possible acute bronchitis. 2. Mild acute on chronic systolic heart failure with EF 25%. S/p IV Lasix 60 mg x 1in the ER. Monitor volume status with strict I/Os, daily weight. Will hold any further IV lasix and reevaluate in the morning. Hold Home oral Lasix. Continue home eliquis. 3. Acute and chronic respiratory failure with hypoxemia. Patient baseline is 3 L now on 4 L. Likely from above. Treat as above and wean down oxygen. 4. Atrial fibrillation. Continue Amiodarone, Metoprolol and Eliquis. 5. Hypokalemia. Replace and monitor. 6. DVT prophylaxis Eliquis. 7. Code status full code Disposition likely in 2 days Time-Based Coding :: [TOTAL MINUTES] spent with patient and on the chart (including review of chart, obtaining history, exam, reviewing outside data, placing orders, documenting exam and treatment plan, and counseling patient) on [DATE]. PROFEE Charge codes Subsequent inpatient/observation care: 64151
--- NOTE | 2024-02-22 18:41 | PC.NURSE ---
Patient arrived from ED with oxymask on 3 LNC. She has course Lung Sounds throughout and productive strong cough. RT at bedside this afternoon giving her duonebs. She c/o headache and neck ache, seems to improve with prn hydrocodone. She c/o itching under folds, although no rash seen. Nystatin powder applied. She feels like feet are swollen and noted +1 pitting edema. PT/OT at bedside this afternoon.She states that home meds will be arriving this evening for medication verification/reconciliation. Friend brought in meds and sent to pharmacy this evening. Continuous monitoring.
[2024-02-22] MEDS: ONDANSETRON 4 MG/2 ML INJ IV (20:47)
[2024-02-22] MEDS: AZITHROMYCIN 500 MG in DEXTROSE 5% IN WATER 250 ML 250 MG IV (20:47)
[2024-02-22] MEDS: MEXILETINE 150 MG 1 EACH PO (21:10)
[2024-02-23] VITALS (13 sets, daily range): BP systolic 103–138; BP diastolic 39–77; PULSE 55–74; RESP 16–24; TEMP 36.1–36.6; O2SAT 93–100
[2024-02-23] MEDS: methylPREDNISolone 125 MG/2 ML VIAL 60 MG IV ×4 (01:39→20:04)
[2024-02-23] MEDS: ALBUTEROL/IPRATROPIUM 3 ML AMPUL INH ×5 (03:38→19:15)
[2024-02-23 05:07] LABS: Add Manual Diff / Slide Review NO; Basophils Absolute Auto 0 /uL (0-100); Eosinophils Absolute Auto 0 /uL (0-450); Hematocrit 35.7 % (36-46); Hemoglobin 11.4 g/dL (12.0-16.0); Lymphocytes Absolute Auto 600 /uL (1100-4500); Lymphocytes Percent Auto 2.9 % (25-40); Mean Corpuscular HGB Conc 31.9 % (30-36); Mean Corpuscular Hemoglobin 25.9 PG (26-34); Mean Corpuscular Volume 81.3 fL (80-100); Monocytes Absolute Auto 400 /uL (0-900); Monocytes Percent Auto 1.9 % (3-14); Neutrophils Absolute Auto 19500 /uL (1500-7000); Neutrophils Percent Auto 95.2 % (50-75); Platelet Count 286 X10^3/uL (150-400); White Blood Cell Count 20.5 X10^3/uL (4.5-11.0)
[2024-02-23 05:13] LABS: BUN Creatinine Ratio 26.3 (6-22); Blood Urea Nitrogen 30 mg/dL (7-17); Calcium 9.7 mg/dL (8.4-10.2); Carbon Dioxide 23 mmol/L (22-32); Chloride 96 mmol/L (98-107); Estimated Glomerular Filt Rate 55 mL/min (>60); Glucose 338 mg/dL (80-110); HEMOLYSIS < 15 (0-50); Magnesium 2.1 mg/dL (1.6-2.3); Potassium 4.2 mmol/L (3.4-5.1); Sodium 130 mmol/L (137-145)
[2024-02-23 05:53] LABS: Anisocytosis 2+; Macrocytosis 1+; Platelet Estimate Adequate on smear
[2024-02-23] MEDS: HYDROCODONE/ACET 5/325 TABLET 1 TAB PO (06:02)
[2024-02-23] MEDS: INSULIN GLARGINE 100 UNIT/ML 3ML PEN 20 UNIT SUBCUT ×2 (06:09→21:32)
[2024-02-23] MEDS: FLUTICASONE 120 SPRAY/16 GM SPRAY.SUSP NASAL ×2 (08:17→21:38)
[2024-02-23] MEDS: AMIODARONE 200 MG TABLET 100 MG PO (08:17)
[2024-02-23] MEDS: ACETAMINOPHEN 325 MG TABLET 650 MG PO (08:18)
[2024-02-23] MEDS: MEXILETINE 150 MG 1 EACH PO ×2 (08:19→21:31)
[2024-02-23] MEDS: PANTOPRAZOLE DR 40 MG TABLET PO ×2 (08:19→21:31)
[2024-02-23] MEDS: APIXABAN 5 MG TABLET PO ×2 (08:19→21:31)
[2024-02-23] MEDS: METOPROLOL ER 25 MG TABLET PO (08:19)
[2024-02-23] MEDS: INSULIN LISPRO 100 UNIT/ML 3ML VIAL SUBCUT ×4 (08:24→21:33)
[2024-02-23] MEDS: BUDESONIDE 0.5 MG/2 ML NEB INH ×2 (08:51→19:15)
[2024-02-23] MEDS: OXYCODONE/ACETAMINOPHEN 5/325 TABLET 1 TAB PO ×2 (10:04→21:45)
[2024-02-23] MEDS: FUROSEMIDE 40 MG TABLET 80 MG PO ×2 (13:47→18:40)
[2024-02-23] MEDS: MORPHINE 2 MG/ML INJ IV ×2 (13:48→19:10)
--- NOTE | 2024-02-23 14:30 | PT.IPTN ---
Current Diagnoses Acute on chronic systolic (congestive) heart failure (02/21/24) Physical Therapy Treatment Note M2 PT-IP Current Condition Start: 02/22/24 11:42 Freq: NEEDED Status: Active Protocol: Document 02/22/24 10:22 AB (Rec: 02/22/24 11:56 AB [id number]) Physical Therapy Current Condition Current Condition Evaluation Date 02/22/24 Treatment Diagnosis COPD exacerbation; difficulty in walking Onset Date 02/22/24 M3 PT-IP Subjective Start: 02/22/24 11:42 Freq: NEEDED Status: Active Protocol: Document 02/23/24 14:30 AB (Rec: 02/23/24 16:28 AB [id number]) Subjective Physical Therapy Visit Type Type Treatment Note Visit Start Time 14:30 Visit Stop Time 14:50 Number of PATIENT SUPPORT SPECIALIST Visits 0 Physical Therapy Visit Comments Patient Comments agreeable to do PT M4 PT-IP Mobility and Gait Start: 02/22/24 11:42 Freq: NEEDED Status: Active Protocol: Document 02/23/24 14:30 AB (Rec: 02/23/24 16:28 AB [id number]) PT-Bed Mobility Assessment Supine to Sit Supine to Sit Standby Assistance,Head of Bed Elevated Sit to Supine Sit to Supine Standby Assistance,Head of Bed Elevated PT-Transfer Assessment Sit to and From Stand Sit to and from Stand Standby Assistance,1 Person Assistance,Use of Upper Extremities Equipment Transfer Assistive Device Gait Belt,Straight Cane Orthotic/Prosthetic Devices or Brace: No Comments Mobility Comments pt in bed and agreed to do PT. stated that she does not use a FWW inside her house due to the tight space and mostly furniture cruises. pt agreed to use a SPC since she occaionally use one at home. completed supine to sit SBA. sit to stand from EOB SBA. ambulated using SPC SBA to CGA but still tends to reach for the wall/rail for support. completed ~ 20 ft. standing rest breaks in between. pt requested to go back in bed. O2 sat 95% with 3L/min O2. pt refused to do stairs today. completed sit to supine SBA. positioned pt in bed. call light and table placed within reach. informed pt regarding safety and agreed to use a FWW vs SPC for long distance mobility. pt also has a power w/c to use at home. Gait Assessment Gait Gait Assistance Required: Standby Assistance,Contact Guard Assist Distance (Feet) 20 Able to Maintain Weight Bearing Status Yes During Gait Assistive Devices Assistive Device Gait Belt,Straight Cane Orthotic/Prosthetic Devices or Brace: No Gait Deviations General Gait Pattern Decreased Stride Length, Decreased Feet Clearance Factors Limiting Gait Function Factors Limiting Gait Function Decreased Activity Tolerance, Decreased Strength,Limited Range of Motion,Pain,Poor Balance,Poor Safety Awareness, Respiratory Distress M5 PT-IP Objective Assessments Start: 02/22/24 11:42 Freq: NEEDED Status: Active Protocol: Document 02/22/24 10:22 AB (Rec: 02/22/24 11:56 AB [id number]) Orientation Orientation/Cognition Level of Alertness Alert Orientation Name,Situation Safety Awareness Decreased Safety Awareness Memory Description No Deficits Noted Gross Range of Motion Lower Extremity ROM Assessment Within Functional Limits Strength Lower Extremity Strength Hip 3+/5 Knee 4-/5 Coordination Assessment Gross Coordination Gross Coordination WNL Sensation Assessment Sensation Gross Sensation WNL Muscle Tone Muscle Tone WNL Yes M6 PT-IP Treatment Start: 02/22/24 11:42 Freq: NEEDED Status: Active Protocol: Document 02/23/24 14:30 AB (Rec: 02/23/24 16:28 AB [id number]) Physical Therapy Treatment Education Education Provided Safety M7 PT-IP Assessment and Plan Start: 02/22/24 11:42 Freq: NEEDED Status: Active Protocol: Document 02/23/24 14:30 AB (Rec: 02/23/24 16:28 AB [id number]) PT Summary Assessment and Plan Potential Rehabilitation Potential Fair Summary Impairments Pain,ROM,Strength,Balance, Coordination,Sensation,Tone, Cognition,Bed Mobility, Transfers,Gait,Activity Tolerance Assessment Summary pt improving slowly with mobility but continues to have decrease activity tolerance affecting mobility independence. pt able to ambulate in room using SPC SBA to CGA ~ 20 ft. pt will have her family to assist her at home. will attempt stair climbing next session when appropriate. Goals Transfer Goal Independent,Front Wheeled Walker Gait Goal Independent,Front Wheel Walker Gait Distance 100 Other Goals improve transfers and ambulation using SPC ~ 100 ft mod I up/down 5 steps R rail SBA; up /down 3 steps without rails using SPC SBA Days to Meet Goals 10 Frequency of Treatment Frequency Of Treatment Once a Day Treatment Plan Physical Therapy Treatment Plan Bed Mobility Training,Transfer Training,Gait Training, Therapeutic Exercise,Balance Retraining,Discharge Planning, Hot or Cold Pack,Neuromuscular Re-ed,Coordination Retraining ,Manual Therapy Other Recommendations and Next Treatment stair climbing if/when Focus appropriate Precautions Other Precautions O2 sat; falls Recommendations To Nursing Amount of Assist Needed 1 Person Assist Discharge Recommendations PT Discharge Recommendations Home with Assistance,Home Health Transportation Needs at Discharge Private Vehicle,Wheelchair/ Cabulance
--- NOTE | 2024-02-23 15:32 | PM.PN.1 ---
Subjective Subjective Date Patient Seen: 02/23/24 Time Patient Seen: 09:20 Interval history: 58 year old female with past medical history of COPD on 3 L of O2 at baseline, chronic systolic heart failure with EF 25% with pacemaker and afib on Eliquis presents with complaint of increase shortness of breath. Per the patient report, the patient has had worsening shortness of breath over the last three weeks. The patient Was seen in her account service associate clinic today and was told that she had low potassium and need to come into our ER for further evaluation. The patient states that she has been having shortness of breath, but denies any chest pain. The patient does have a worsening nonproductive cough and has required her to increase her O2 up to 4 L over the last few days. Otherwise the patient denies any nausea, vomiting, diarrhea, or syncope. In our emergency room, the patient was hemodynamically stable but require 4L of O2 per NC. Lab was only abnormal for potassium of 3.2 and a BMP of 785. Chest x-ray shows possible volume overload. The patient was treated with duonebs, solumedrol and 60 IV Lasix. Interval history: The patient states she is feeling better in terms of breathing but significantly depressed and anxious. Exam Vital Signs (past 8 hours): - 02/23/24 08:00 02/23/24 08:19 02/23/24 08:51 Temperature 97.0 F L Pulse Rate 59 L 59 L 55 L Respiratory Rate 24 22 Blood Pressure 112/60 112/60 Pulse Oximetry 100 96 Oxygen Delivery Method Oximask Oxygen Flow Rate 4 3 02/23/24 11:48 02/23/24 12:00 02/23/24 15:08 Temperature 97.3 F L Pulse Rate 56 L 67 59 L Respiratory Rate 20 19 16 Blood Pressure 112/46 L Pulse Oximetry 94 96 96 Oxygen Delivery Method Oximask Oximask Oxygen Flow Rate 3 3 3 Fraction of Inspired Oxygen 32 SaO2/FiO2 Ratio 290 Oxygen Delivery Method Oximask Oxygen Flow Rate 3 Narrative Exam Narrative: GENERAL: This is a well-nourished, well-developed patient, in no apparent respiratory distress. appears upset and anxious though calms with talking. EYES: Pupils equal round and reactive. Extraocular motions intact. No scleral icterus. No injection or drainage. ENT: Mucous membranes pink and moist. NECK: Trachea midline. No JVD, bruits or lymphadenopathy. Supple, nontender, no meningeal signs. CARDIOVASCULAR: Regular rate and rhythm without murmurs, gallops, or rubs. RESPIRATORY: Diminished breath sounds throughout, scattered rhonchi, mid and expiratory wheeze. GASTROINTESTINAL: Abdomen soft, non-tender, nondistended. EXTREMITIES: Trace edema. NEUROLOGIC: Alert, oriented, speech fluent, full upper and lower motor strength, no focal deficits evident. DERMATOLOGIC: No rashes or skin lesions. Objective Labs 02/23/24 04:05 02/23/24 04:05 Labs: Laboratory Results - last 24 hr 02/23/24 04:05 WBC 20.5 H D RBC 4.40 Hgb 11.4 L Hct 35.7 L MCV 81.3 MCH 25.9 L MCHC 31.9 RDW 22.0 H Plt Count 286 Neut % (Auto) 95.2 H Lymph % (Auto) 2.9 L [place] % (Auto) 1.9 L Eos % (Auto) 0.0 L Baso % (Auto) 0.0 Neut # (Auto) 88503 H Lymph # (Auto) 600 L [place] # (Auto) 400 Eos # (Auto) 0 Baso # (Auto) 0 Platelet Estimate Adequate on smear RBC Morphology See below Anisocytosis 2+ H Macrocytosis 1+ H Sodium 130 L Potassium 4.2 Chloride 96 L Carbon Dioxide 23 BUN 30 H Creatinine 1.14 H Estimated GFR 55 L BUN/Creatinine Ratio 26.3 H Glucose 338 H Calcium 9.7 Magnesium 2.1 PFSH Medical History Cervical spondylosis Neck pain Cervical radiculopathy CAD (coronary artery disease) Congestive heart failure COPD (chronic obstructive pulmonary disease) Surgical History AICD (automatic cardioverter/defibrillator) present H/O heart artery stent Social History household members: spouse and none lives independently: Yes Smoking Status: Current every day smoker alcohol intake: current Assessment & Plan Assessment & Plan narrative: 1. COPD exacerbation. Admitted to medical floor as inpatient. Continue Solumedrol, duonebs and empiric azithromycin for possible acute bronchitis. Leukocytosis noted due to steroids. 2. Mild acute on chronic systolic heart failure with EF 25%. S/p IV Lasix 60 mg x 1in the ER. Monitor volume status with strict I/Os, daily weight. Will hold any further IV lasix and reevaluate in the morning. Hold Home oral Lasix. Continue home eliquis. 3. Acute and chronic respiratory failure with hypoxemia. Patient is back to baseline 3 L oxygen per minute. 4. Atrial fibrillation. Continue Amiodarone, Metoprolol and Eliquis. 5. Hypokalemia. Corrected 6. Depression/anxiety. Inadequately controlled. Start mirtazapine 15 mg nightly. 7. DVT prophylaxis Eliquis. 8. Code status full code Disposition likely tomorrow if doing well. Time-Based Coding :: [TOTAL MINUTES] spent with patient and on the chart (including review of chart, obtaining history, exam, reviewing outside data, placing orders, documenting exam and treatment plan, and counseling patient) on [DATE]. Quality VTE Deep Vein Thrombosis/Pulmonary Embolism Present on Admission: No PROFEE Charge codes Subsequent inpatient/observation care: 25422
--- NOTE | 2024-02-23 16:21 | CM.DANOTE ---
DCP Assessment Note pt is a 58yo F here with COPD exacerbation. PCP Jolene Steen Payer [facility] and Medicaid GENERAL MANAGER FOOD reviewed EMR. Per chart, lives in [place] with spouse and other local family. on 3L O2 at home. on 3-4Ltrs throughout admission so far. PT=HH. GENERAL MANAGER FOOD briefly met with pt and granddaughter/DPOA in room. In agreement with [facility] resumption. bad hx with [facility]. interested in different walker, granddaughter reports she will get something different. reports granddaughter could transport her home at dc. denies other CM needs. Referral to [facility] needed. f2f/order needed, P: home with family support and close OP f/u when medically stable, with [facility] for RN/PT/OT (consider GENERAL MANAGER FOOD for MH?) CM team will continue to follow closely GEORGE Porter Discharge Planning/Care Management Advanced directive, confirm from FAMILY Start: 02/22/24 16:38 Freq: Q24H Status: Active Protocol: Document 02/22/24 16:38 (Rec: 02/23/24 00:36 [id number]) Advance Directive, confirm on record Time 21:30 Person contacted pt Copy received No CM Discharge Assessment Start: 02/23/24 16:18 Freq: Status: Active Protocol: Document 02/23/24 16:18 (Rec: 02/23/24 16:21 [id number]) Discharge Planning Assessment Assigned Edm Operator GEORGE Lowe DPSHANELL/Assigned Designee Name Kris grand faraz Contact Information [phone] Advance Directives? Yes Advance Directives on File No History Provided By Patient,Medical Record Prior Living Arrangements RV Household Members spouse,none Type of transporation used prior to Relies on Others admit Needs Assistance With Meal Prep,Managing Medications ,Home Chores / Shopping DME Already Rented / Owned FWW / Walker Patient/Family Preference Home with Home Health Comment Home w/HH expected upon discharge. Family or friends to transport home Discharge Plan Home with Home Health Transportation Arrangement Likely spouse or family to provide transport Referrals Initiated Home Health Additional Comment requests referral to [facility]F/HH Preference [facility] Whiteboard Updated in Patient Room with Yes name and ext. # of Edm Operator Review Status In Process Please Provide Date Initial DC 02/23/24 Assessment Was Performed Next Review Type Continued Stay Review
--- NOTE | 2024-02-23 18:45 | PC.NURSE ---
Pt condition remains essentially unchanged. Med for headache T/O shift Lungs w/ expiratory wheeze T/O CBG covered w/ S/S as per orderts. Call light w/in reach, pt calls appropriately for needs. Continue w/plan of care.
[2024-02-23] MEDS: ONDANSETRON 4 MG/2 ML INJ IV (19:10)
[2024-02-23] MEDS: AZITHROMYCIN 500 MG in DEXTROSE 5% IN WATER 250 ML 250 MG IV (21:31)
[2024-02-23] MEDS: MIRTAZAPINE 15 MG TABLET PO (21:31)
[2024-02-24] VITALS (11 sets, daily range): BP systolic 108–149; BP diastolic 45–67; PULSE 56–65; RESP 16–24; TEMP 36.1–36.4; O2SAT 93–98
[2024-02-24] MEDS: methylPREDNISolone 125 MG/2 ML VIAL 60 MG IV ×2 (01:55→06:40)
[2024-02-24] MEDS: ALBUTEROL/IPRATROPIUM 3 ML AMPUL INH ×5 (07:43→22:41)
[2024-02-24] MEDS: BUDESONIDE 0.5 MG/2 ML NEB INH ×2 (07:43→19:09)
[2024-02-24] MEDS: MORPHINE 2 MG/ML INJ IV ×4 (08:12→20:51)
[2024-02-24] MEDS: APIXABAN 5 MG TABLET PO ×2 (08:17→20:54)
[2024-02-24] MEDS: AMIODARONE 200 MG TABLET 100 MG PO (08:17)
[2024-02-24] MEDS: MEXILETINE 150 MG 1 EACH PO ×2 (08:17→20:54)
[2024-02-24] MEDS: PANTOPRAZOLE DR 40 MG TABLET PO ×2 (08:17→20:55)
[2024-02-24] MEDS: METOPROLOL ER 25 MG TABLET PO (08:17)
[2024-02-24] MEDS: predniSONE 20 MG TABLET 40 MG PO (08:17)
[2024-02-24] MEDS: FUROSEMIDE 40 MG TABLET 80 MG PO ×2 (08:21→17:18)
[2024-02-24] MEDS: INSULIN LISPRO 100 UNIT/ML 3ML VIAL SUBCUT ×4 (08:24→21:05)
[2024-02-24] MEDS: FLUTICASONE 120 SPRAY/16 GM SPRAY.SUSP NASAL ×2 (08:27→20:56)
[2024-02-24] MEDS: ONDANSETRON 4 MG/2 ML INJ IV ×2 (10:00→18:16)
--- NOTE | 2024-02-24 11:02 | DIET.CONS2 ---
Addendum entered by Karina Corona 02/24/24 11:05: BGs were acceptable at 138 when pt assigned Carb Consistent/Heart Healthy diet. Hyperglycemia noted consistently >200 once therapeutic diet changed. Pt is Full Code. Original Note: Dietary Inpatient Consultation Note Admission Date: 02/21/2024 22:07 58yo F screened by RD for hyperglycemia. Pt assigned regular diet, requesting 3 sugar packets for each cup of tea x3 at each meal. BGs 221-341 Recc pt be assigned therapeutic carbohydrate consistent diet due to hyperglycemia and frequent admissions. Diet: 02/22/24 Dinner General (Regular) Diet Diet Modifications: Food Texture: Level 7 - Regular Liquid Consistency: Level 0 - Thin Nutrition Percent Meal Consumed 90 02/24/24 09:10 Percent Meal Consumed 100% 02/23/24 18:00 Percent Meal Consumed 100% 02/23/24 13:00 Percent Meal Consumed 100% 02/23/24 10:00 Percent Meal Consumed 100% 02/22/24 18:00 Percent Meal Consumed 100% 02/22/24 12:13 Electronically Signed by: Karina Corona 02/24/24 11:02 Clinical Dietitian [address] [address]
--- NOTE | 2024-02-24 12:44 | PT-IP ANOTE ---
Pt refused PT today due to high level of fatigue and still feeling SOB. Will attempt to work w/ pt tomorrow.
--- NOTE | 2024-02-24 14:36 | PM.PN.1 ---
Subjective Subjective Date Patient Seen: 02/24/24 Time Patient Seen: 08:04 Interval history: 58 year old female with past medical history of COPD on 3 L of O2 at baseline, chronic systolic heart failure with EF 25% with pacemaker and afib on Eliquis presents with complaint of increase shortness of breath. Per the patient report, the patient has had worsening shortness of breath over the last three weeks. The patient Was seen in her photostat operator helper clinic today and was told that she had low potassium and need to come into our ER for further evaluation. The patient states that she has been having shortness of breath, but denies any chest pain. The patient does have a worsening nonproductive cough and has required her to increase her O2 up to 4 L over the last few days. Otherwise the patient denies any nausea, vomiting, diarrhea, or syncope. In our emergency room, the patient was hemodynamically stable but require 4L of O2 per NC. Lab was only abnormal for potassium of 3.2 and a BMP of 785. Chest x-ray shows possible volume overload. The patient was treated with duonebs, solumedrol and 60 IV Lasix. Interval history: The patient states she is feeling better in terms of breathing with significant headache and malaise. She is feeling very weak. Exam Vital Signs (past 8 hours): - 02/24/24 07:00 02/24/24 07:43 02/24/24 08:00 Temperature 97.6 F Pulse Rate 62 65 Respiratory Rate 20 16 Blood Pressure 139/67 Pulse Oximetry 95 98 Oxygen Delivery Method Oximask Oximask Oxygen Flow Rate 3 3 Fraction of Inspired Oxygen 32 02/24/24 08:17 02/24/24 09:38 02/24/24 11:48 Temperature Pulse Rate 62 60 61 Respiratory Rate 20 Blood Pressure 139/67 Pulse Oximetry 94 Oxygen Delivery Method Oximask Oxygen Flow Rate 3 Fraction of Inspired Oxygen 32 02/24/24 12:00 Temperature Pulse Rate 60 Respiratory Rate Blood Pressure 108/53 L Pulse Oximetry 96 Oxygen Delivery Method Oxygen Flow Rate 3 Fraction of Inspired Oxygen Fraction of Inspired Oxygen 32 SaO2/FiO2 Ratio 293 Oxygen Delivery Method Oximask Oxygen Flow Rate 3 Narrative Exam Narrative: GENERAL: This is a well-nourished, well-developed patient, in no apparent respiratory distress. appears upset and anxious though calms with talking. EYES: Pupils equal round and reactive. Extraocular motions intact. No scleral icterus. No injection or drainage. ENT: Mucous membranes pink and moist. NECK: Supple, nontender, no meningeal signs. CARDIOVASCULAR: Regular rate and rhythm without murmurs, gallops, or rubs. RESPIRATORY: Diminished breath sounds throughout, no rhonchi or wheezing. GASTROINTESTINAL: Abdomen soft, non-tender, nondistended. EXTREMITIES: Trace edema. NEUROLOGIC: Alert, oriented, speech fluent, full upper and lower motor strength, no focal deficits evident. DERMATOLOGIC: No rashes or skin lesions. Objective Labs 02/23/24 04:05 02/23/24 04:05 [facility] Medical History Cervical spondylosis Neck pain Cervical radiculopathy CAD (coronary artery disease) Congestive heart failure COPD (chronic obstructive pulmonary disease) Surgical History AICD (automatic cardioverter/defibrillator) present H/O heart artery stent Social History household members: spouse and none lives independently: Yes Smoking Status: Current every day smoker alcohol intake: current Assessment & Plan Assessment & Plan narrative: 1. COPD exacerbation. Admitted to medical floor as inpatient. Continue prednisone 40 mg daily, duonebs and empiric azithromycin for possible acute bronchitis. Leukocytosis noted due to steroids. 2. Mild acute on chronic systolic heart failure with EF 25%. S/p IV Lasix 60 mg x 1in the ER. Continue furosemide 40 mg twice daily.. 3. Acute and chronic respiratory failure with hypoxemia. Patient is back to baseline 3 L oxygen per minute. 4. Atrial fibrillation. Continue Amiodarone, Metoprolol and Eliquis. 5. Hypokalemia. Corrected 6. Depression/anxiety. She found her 1st dose last night very helpful for sleep.. Continue mirtazapine 15 mg nightly started 02/23/2024. 7. DVT prophylaxis Eliquis. 8. Code status full code Disposition likely tomorrow if doing well. Quality VTE Deep Vein Thrombosis/Pulmonary Embolism Present on Admission: No IH PROFEE Charge codes Subsequent inpatient/observation care: 60306
--- NOTE | 2024-02-24 15:02 | CM.DPNOTE ---
DCP note DIAL EQUIPMENT ENGINEER reviewed EMR. Per hospitalist in morning rounds, dc today vs tomorrow. DIAL EQUIPMENT ENGINEER emailed Chaya/Elly at [facility] referral information, Elly will review and see if any issues accepting her back on services. P: anticipate home with family support and [facility] for RN/PT/OT/DIAL EQUIPMENT ENGINEER(?) Sunday/when medically stable. f2f and HH order needed. CM team will continue to follow closely GEORGE Porter
[2024-02-24] MEDS: MIRTAZAPINE 15 MG TABLET PO (20:55)
[2024-02-24] MEDS: INSULIN GLARGINE 100 UNIT/ML 3ML PEN 20 UNIT SUBCUT (21:07)
[2024-02-25 02:00] VITALS: BP 128/60; PULSE 60; RESP 16; TEMP 36.3; O2SAT 93
[2024-02-25] MEDS: BUDESONIDE 0.5 MG/2 ML NEB INH (07:33)
[2024-02-25] MEDS: ALBUTEROL/IPRATROPIUM 3 ML AMPUL INH ×2 (07:33→11:01)
[2024-02-25 07:34] VITALS: PULSE 56; RESP 20; O2SAT 96
[2024-02-25 08:18] VITALS: BP 128/60
[2024-02-25] MEDS: AMIODARONE 200 MG TABLET 100 MG PO (08:18)
[2024-02-25] MEDS: METOPROLOL ER 25 MG TABLET PO (08:18)
[2024-02-25] MEDS: APIXABAN 5 MG TABLET PO (08:18)
[2024-02-25] MEDS: FUROSEMIDE 40 MG TABLET 80 MG PO (08:18)
[2024-02-25] MEDS: MEXILETINE 150 MG 1 EACH PO (08:19)
[2024-02-25] MEDS: predniSONE 20 MG TABLET 40 MG PO (08:19)
[2024-02-25] MEDS: PANTOPRAZOLE DR 40 MG TABLET PO (08:19)
[2024-02-25] MEDS: FLUTICASONE 120 SPRAY/16 GM SPRAY.SUSP NASAL (08:20)
[2024-02-25] MEDS: INSULIN LISPRO 100 UNIT/ML 3ML VIAL SUBCUT (08:20)
[2024-02-25 08:48] VITALS: PULSE 68
[2024-02-25] MEDS: OXYCODONE/ACETAMINOPHEN 5/325 TABLET 1 TAB PO (09:50)
[2024-02-25 10:12] VITALS: BP 129/62; PULSE 69; RESP 26; TEMP 35.9; O2SAT 96
[2024-02-25 11:02] VITALS: PULSE 56; RESP 20; O2SAT 96
[2024-02-25] MEDS: MORPHINE 2 MG/ML INJ IV (11:30)
--- NOTE | 2024-02-25 11:40 | CM.DPNOTE ---
DCP Note ASPHALT PAVING MACHINE OPERATOR reviewed EMR Per hospitalist in morning rounds, dc home with HH today. ASPHALT PAVING MACHINE OPERATOR met with pt in room. In agreement with plan, preference to resume with [facility]. denies other questions. Granddaughter on way to transport. Per Chaya at [facility], can accept pt back. ASPHALT PAVING MACHINE OPERATOR completed f2f and HH order, emailed to Chaya ross pending. P: Dc home today with [facility] and family support. CM team will continue to follow as needed GEORGE Porter
--- NOTE | 2024-02-25 13:40 | PC.NURSE ---
Discharge Note Patient A&O, VSS, RA, no complaints of pain/discomfort. Patient agreeable to discharge plan. Discharge packet reviewed with patient, all questions/concerns addressed. PIV discontinued. Patient able to dress self and pack all belongings. Patient taken down via wheelchair to POV.
--- NOTE | 2024-02-27 13:43 | PM.DS.1 ---
History of Present Illness History of Present Illness Chief complaint: SOB Narrative: From H&P: 58 year old female with past medical history of COPD on 3 L of O2 at baseline, chronic systolic heart failure with EF 25% with pacemaker and afib on Eliquis presents with complaint of increase shortness of breath. Per the patient report, the patient has had worsening shortness of breath over the last three weeks. The patient Was seen in her wrap yarn sorter clinic today and was told that she had low potassium and need to come into our ER for further evaluation. The patient states that she has been having shortness of breath, but denies any chest pain. The patient does have a worsening nonproductive cough and has required her to increase her O2 up to 4 L over the last few days. Otherwise the patient denies any nausea, vomiting, diarrhea, or syncope. In our emergency room, the patient was hemodynamically stable but require 4L of O2 per NC. Lab was only abnormal for potassium of 3.2 and a BMP of 785. Chest x-ray shows possible volume overload. The patient was treated with duonebs, solumedrol and 60 IV Lasix. Discharge Providers Provider Date of admission: 02/21/24 22:07 Discharge Date: 02/25/24 Primary care physician: Jolene Steen PA-C Consults: 02/21/24 21:59 Consult to Occupational Therapy Evaluate & Treat Comment: Physician Instructions: Evaluate and treat Consult to Physical Therapy Evaluate & Treat Comment: Physician Instructions: Evaluate and Treat 02/25/24 11:38 Consult to Home Health Routine Comment: Reason For Exam: RN/PT/OT Discharge provider: Jai Thornton MD Summary Hospital Course Discharge Diagnosis: 1. COPD exacerbation. Present on admission and improved. 2. Mild acute on chronic systolic heart failure with EF 25%.Present on admission and improved. 3. Acute and chronic respiratory failure with hypoxemia. Patient is back to baseline 3 L oxygen per minute. Present on admission and improved. 4. Atrial fibrillation. Continue Amiodarone, Metoprolol and Eliquis. Present on admission and stable. 5. Hypokalemia. Present on admission and improved. 6. Depression/anxiety. Continue mirtazapine 15 mg nightly started 02/23/2024. Improved. Hospital Course: She was admitted to the hospital for COPD exacerbation and possible heart failure. She was diuresed and treated with steroids and bronchodilators. She had a leukocytosis relating to her steroids. She did improve each day and was converted from IV Lasix to oral Lasix. On the day of discharge she felt near her baseline did request discharge home. Her white count had improved. Status at Discharge Cognitive/behavioral status at discharge: oriented Functional status at discharge: uses cane/walker Overall status at discharge: patient is progressing back to baseline Time Spent with Patient Time spent: Greater than 30 minutes Exam Vital Signs (past 8 hours): Fraction of Inspired Oxygen 32 SaO2/FiO2 Ratio 300 Oxygen Delivery Method Nasal Cannula Oxygen Flow Rate 3 Narrative Exam Narrative: NAD, alert and oriented. Fluent speech. Lungs are clear, normal rate and effort. Diminished sounds, good air movement. Heart is regular, no murmur gallop or rub. Abdomen is soft, non distended. Extremities are free of edema. Objective Imaging Chest x-ray: Radiologist's impression: Mild CHF exacerbation versus findings that can be seen in the setting of aspiration. Labs 02/23/24 04:05 02/23/24 04:05 [facility] Medical History Cervical spondylosis Neck pain Cervical radiculopathy CAD (coronary artery disease) Congestive heart failure COPD (chronic obstructive pulmonary disease) Surgical History AICD (automatic cardioverter/defibrillator) present H/O heart artery stent Social History household members: spouse and none lives independently: Yes Smoking Status: Current every day smoker alcohol intake: current Discharge Assessment & Plan Assessment and Plan Assessment: 1. COPD exacerbation. Present on admission and improved. 2. Mild acute on chronic systolic heart failure with EF 25%.Present on admission and improved. 3. Acute and chronic respiratory failure with hypoxemia. Patient is back to baseline 3 L oxygen per minute. Present on admission and improved. Plan of Treatment: Discharge home on oral steroids with close follow up. PCP is recommended within 6 days. Home health has also been arranged. Anxiety message is also provided. She does have a significant component of anxiety. Discharge Plan Discharge Plan Patient Disposition: Home Health Service Provider Discharge Comment: Stable for discharge Discharge orders & Medications Prescriptions: New prednisone 20 mg Tablet 40 mg PO DAILY Qty: 6 0RF hydrocodone-acetaminophen 5-325 mg Tablet 1 tab PO Q4HR PRN (Reason: Pain, Moderate (4-6)) Qty: 14 0RF diazepam [Valium] 5 mg tablet 5 mg PO BID PRN (Reason: anxiety) Qty: 14 0RF Continued amiodarone 200 mg tablet 100 mg PO DAILY Patient Comments: TAKE 1/2 (ONE-HALF) TABLET BY MOUTH ONCE DAILY albuterol sulfate [Ventolin HFA] 90 mcg/actuation HFA aerosol inhaler 2 puff INHALATION QID PRN (Reason: Shortness Of Breath) Patient Comments: INHALE 2 PUFFS BY MOUTH 4 TIMES DAILY NEEDED Eliquis 5 mg tablet 5 mg PO BID Patient Comments: TAKE 1 TABLET BY MOUTH TWICE DAILY metoprolol succinate 25 mg tablet extended release 24 hr 25 mg PO DAILY Patient Comments: TAKE 1 TABLET BY MOUTH TWICE DAILY FOR BLOOD PRESSURE ProAir RespiClick 90 mcg/actuation aerosol powdr breath activated 2 inh INHALATION Q4H PRN (Reason: Shortness Of Breath) Patient Comments: INHALE 2 PUFFS BY MOUTH EVERY 4 TO 6 HOURS NEEDED promethazine 25 mg tablet 25 mg PO Q6H PRN (Reason: Nausea) Patient Comments: TAKE 1 TABLET BY MOUTH EVERY 6 HOURS multivitamin Tablet 1 tab PO DAILY Mucinex DM 30-600 mg Tablet Extended Release 12 Hr 1 tab PO BEDTIME methocarbamol 500 mg tablet 500 mg PO TID PRN (Reason: Muscle Spasm) Patient Comments: TAKE 1 TABLET BY MOUTH THREE TIMES DAILY NEEDED FOR MUSCLE SPASM albuterol sulfate 2.5 mg /3 mL (0.083 %) solution for nebulization 2.5 mg inhalation 4XD PRN (Reason: wheezing) mexiletine 150 mg capsule 150 mg PO BID budesonide 0.5 mg/2 mL suspension for nebulization 0.5 mg inhalation BID montelukast 10 mg tablet 10 mg PO BEDTIME Jardiance 10 mg tablet 10 mg PO DAILY Entresto 24-26 mg tablet 1 tab PO BID prednisone 20 mg Tablet See Rx Instructions .ROUTE .COMPLEX Qty: 10 0RF Rx Instructions: Take 40 mg daily for 3 days, 20 mg daily for 3 days, 10 mg daily for 2 days, then stop. pantoprazole [Protonix] 40 mg tablet,delayed release (DR/EC) 40 mg PO BID Qty: 60 2RF furosemide 40 mg tablet 40 mg PO BID fluticasone propionate 50 mcg/actuation spray,suspension 2 spray INTRANASAL BID furosemide 80 mg tablet 80 mg PO BID Follow up/Referrals: Jolene Steen PA-C [Primary Care Provider] - Diet/Activity/Treatments Diet: Diet as Tolerated Activity: As tolerated Skin/Wound/Dressing Care Report to your healthcare provider any signs of infection, such as:: chills, fever, night sweats and increased pain Visit Report/Discharge Packet Instructions: DI for Chronic Obstructive Pulmonary Disease Stand Alone Forms: Patient Portal/API Discharge Data Primary Care Provider: Jolene Steen Attending Provider: Bossman Valerio Admit Date/Time: 02/21/24 22:07 Quality VTE Deep Vein Thrombosis/Pulmonary Embolism Present on Admission: No
== END 2024-02-25 13:15 | disposition home health service (06) | DRG 190 ==
LOC: ED 22:07 → AC 02-22 00:51
PROVIDERS: Internal Medicine; Admitting Provider Internal Medicine; Emergency Provider Internal Medicine; Family Provider Internal Medicine; PCP Physician Assistant Medical; Referring Provider Emergency Medicine; Visit Provider Internal Medicine
DX: J44.1 Chronic obstructive pulmonary disease with (acute) exacerbation (principal); I50.23 Acute on chronic systolic (congestive) heart failure; J96.21 Acute and chronic respiratory failure with hypoxia; J44.0 Chronic obstructive pulmonary disease with (acute) lower respiratory infection; E87.6 Hypokalemia; I48.91 Unspecified atrial fibrillation; F32.A Depression, unspecified; F41.9 Anxiety disorder, unspecified; J20.9 Acute bronchitis, unspecified; I25.10 Atherosclerotic heart disease of native coronary artery without angina pectoris; F17.210 Nicotine dependence, cigarettes, uncomplicated; Z95.0 Presence of cardiac pacemaker; Z99.81 Dependence on supplemental oxygen; Z79.01 Long term (current) use of anticoagulants; Z95.5 Presence of coronary angioplasty implant and graft
CPT/HCPCS: 36415; 36600; 71045; 80048; 80053; 82805; 82962; 83605; 83735; 83880; 84145; 84484; 85025; 85610; 87040; 87633; 93005; 94640; 94762; 96365; 96366; 96367; 96372; 96375; 96376; 97162; 97165; 97530; 99285; 99406; G0378; J1815; J1940; J2270; J2405; J2919; J7613

== ENCOUNTER 2024-05-09 17:13 | Inpatient (IN) | payer MEDICARE, MEDICAID, SELFPAY ==
[2023-10-04 14:16] VITALS: PULSE 70; RESP 18; O2SAT 100
[2024-02-22 16:25] VITALS: BMI 43.9
[2024-05-09] VITALS (38 sets, daily range): BP systolic 94–118; BP diastolic 49–75; PULSE 35–99; RESP 14–42; TEMP 36.7; O2SAT 89–96; BMI 43.5
--- NOTE | 2024-05-09 17:46 | DI.RAD.S_ITS ---
PROCEDURE: XR CHEST 1V INDICATIONS: chest pain TECHNIQUE: One view of the chest was acquired. COMPARISON: [facility], CT, CT CHEST ABD PEL W CON, 10/04/2023, 15:16. [facility], CR, XR CHEST 1V, 02/21/2024, 19:08. [facility], CR, XR CHEST FOR PICC 1V, 10/04/2023, 14:33. FINDINGS: Surgical changes and devices: Left pacemaker/AICD. Lungs and pleura: No consolidation. Right upper lobe calcified granuloma. No pleural effusions or pneumothorax. Mediastinum: Mediastinal contours appear normal. Heart size is prominent. Bones and chest wall: No suspicious bony lesions. Overlying soft tissues appear unremarkable. IMPRESSION: No acute cardiopulmonary abnormality is seen. Dictated by: Pedro Luis Nunes M.D. on 05/09/2024 at 19:17 Approved by: Pedro Luis Nunes M.D. on 05/09/2024 at 19:21
--- NOTE | 2024-05-09 17:55 | EKG_ITS ---
[place] [id number] [place] [id number] Test Date: 2024-05-09 Pat Name: Bernarda Chong Department: [facility] Room: Gender: Female Mink Slicer: AIEM : [id number] Requested By: Order Number: [id number] Reading MD: Jai Thornton Measurements Intervals [place] Rate: 91 P: -21 MT: QRS: -77 QRSD: 176 T: 101 QT: 464 QTc: 570 Interpretive Statements Ventricular-paced rhythm with occasional premature ventricular complexes Electronically Signed On 05-09-2024 18:23:04 PST by Jai Thornton
[2024-05-09] MEDS: ALBUTEROL/IPRATROPIUM 3 ML AMPUL 6 ML INH (18:08)
[2024-05-09] MEDS: methylPREDNISolone 125 MG/2 ML VIAL IV (18:29)
[2024-05-09 18:34] LABS: Add Manual Diff / Slide Review NO; Basophils Absolute Auto 100 /uL (0-100); Basophils Percent Auto 0.6 % (0-2); Eosinophils Absolute Auto 100 /uL (0-450); Eosinophils Percent Auto 1.1 % (2-4); Hematocrit 40.4 % (36-46); Hemoglobin 12.7 g/dL (12.0-16.0); Lymphocytes Absolute Auto 1700 /uL (1100-4500); Lymphocytes Percent Auto 12.4 % (25-40); Mean Corpuscular HGB Conc 31.4 % (30-36); Monocytes Absolute Auto 1300 /uL (0-900); Monocytes Percent Auto 9.5 % (3-14); Neutrophils Absolute Auto 10300 /uL (1500-7000); Neutrophils Percent Auto 76.4 % (50-75); Platelet Count 321 X10^3/uL (150-400); Red Blood Cell Count 4.87 X10^6/uL (4.0-5.2); Red Cell Distribution Width 18.4 % (11.6-14.8); White Blood Cell Count 13.4 X10^3/uL (4.5-11.0)
[2024-05-09] MEDS: ALBUTEROL 2.5 MG/3 ML NEB (ADULT) INH (18:42)
[2024-05-09 18:45] LABS: Alanine Aminotransferase 20 IU/L (<35); Albumin 3.8 g/dL (3.5-5.0); Albumin Globulin Ratio 1.2 (1.0-2.8); Alkaline Phosphatase 112 U/L (38-126); Aspartate Aminotransferase 22 IU/L (14-36); BUN Creatinine Ratio 14.8 (6-22); Bilirubin Total 0.4 mg/dL (0.2-1.3); Blood Urea Nitrogen 19 mg/dL (7-17); Carbon Dioxide 30 mmol/L (22-32); Chloride 101 mmol/L (98-107); Creatine Kinase 26 U/L (30-135); Estimated Glomerular Filt Rate 48 mL/min (>60); Globulin 3.3 g/dL (1.7-4.1); Glucose 174 mg/dL (80-110); HEMOLYSIS < 15 (0-50); Lipase 89 U/L (23-300); Potassium 3.4 mmol/L (3.4-5.1); Sodium 135 mmol/L (137-145); Total Protein 7.1 g/dL (6.3-8.2)
[2024-05-09 18:47] LABS: Influenza A - CEPHEID Flu A NEGATIVE (NEGATIVE); Influenza B - CEPHEID Flu B NEGATIVE (NEGATIVE); Respiratory Syncytial Virus Negative (Negative)
[2024-05-09 18:52] LABS: COVID-19 CEPHEID 4-PLEX PCR Negative (Negative)
[2024-05-09 18:57] LABS: Troponin I < 0.012 ng/mL (0.01-0.034)
--- NOTE | 2024-05-09 18:58 | EKG_ITS ---
[address] [address] Test Date: 2024-05-09 Pat Name: Bernarda Chong Department: Room: 229 Gender: Female Sales Executive Insurance: JASEN URIBE : 1965 Requested By: Order Number: [id number] Reading MD: Jai Thornton Measurements Intervals [place] Rate: 92 P: -37 RI: QRS: -68 QRSD: 164 T: 97 QT: 438 QTc: 541 Interpretive Statements Ventricular-paced rhythm Electronically Signed On 05-10-2024 17:04:17 PST by Jai Thornton
--- NOTE | 2024-05-09 19:00 | ED_ITS ---
HPI - SOB/Dyspnea General Chief Complaint: Shortness of Breath/Dyspnea Stated Complaint: Wheezing, COPD Time Seen by Provider: 05/09/24 17:46 Source: patient and family Mode of arrival: Wheelchair Limitations: no limitations History of Present Illness HPI Narrative: 59-year-old female with history of congestive heart failure and COPD, uses 3 L oxygen daily at home, takes Lasix, on Eliquis chronic anticoagulation, on amiodarone, has 5 days duration of cough and increasing shortness of breath, she has a pacer [employer] device placed a couple of years ago at [facility], no shocking sensation from the device area tonight or recent, no fevers. No change in medications. She uses home breathing treatments at home, also takes Lasix. Related Data Home Medications Medication Instructions Recorded Confirmed albuterol sulfate 90 mcg/actuation 2 puff inhalation QID PRN 07/17/22 05/09/24 aerosol inhaler (Ventolin HFA) Shortness Of Breath amiodarone 200 mg tablet 100 mg PO DAILY 07/17/22 05/09/24 apixaban 5 mg tablet (Eliquis) 5 mg PO BID 07/17/22 05/09/24 metoprolol succinate 25 mg 25 mg PO DAILY 08/29/22 05/09/24 tablet,extended release 24 hr multivitamin 1 tab PO DAILY 08/29/22 05/09/24 promethazine 25 mg tablet 25 mg PO Q6H PRN Nausea 08/29/22 05/09/24 fluticasone propionate 50 2 spray intranasal BID 11/07/22 05/09/24 mcg/actuation nasal spray,suspension albuterol sulfate 2.5 mg/3 mL 2.5 mg inhalation 4XD PRN wheezing 08/01/23 05/09/24 (0.083 %) solution for nebulization budesonide 0.5 mg/2 mL suspension 0.5 mg inhalation BID 08/01/23 05/09/24 for nebulization empagliflozin 10 mg tablet 10 mg PO DAILY 08/01/23 05/09/24 (Jardiance) mexiletine 150 mg capsule 150 mg PO BID 08/01/23 05/09/24 montelukast 10 mg tablet 10 mg PO BEDTIME 08/01/23 05/09/24 sacubitril 24 mg-valsartan 26 mg 1 tab PO BID 08/01/23 05/09/24 tablet (Entresto) furosemide 80 mg tablet 80 mg PO DAILY 10/15/23 05/09/24 Saccharomyces boulardii 250 mg 250 mg PO BID 05/09/24 05/09/24 capsule (Florastor) aspirin 81 mg tablet 81 mg PO DAILY 05/09/24 05/09/24 cetirizine 10 mg tablet (All Day 10 mg PO DAILY 05/09/24 05/09/24 Allergy (cetirizine)) glipizide 5 mg tablet 5 mg PO DAILY 05/09/24 05/09/24 Previous Rx's Medication Instructions Recorded pantoprazole 40 mg tablet,delayed 40 mg PO BID #60 tabs 10/07/23 release (Protonix) diazepam 5 mg tablet (Valium) 5 mg PO BID PRN anxiety #14 tabs 02/25/24 hydrocodone 5 mg-acetaminophen 325 1 tab PO Q4HR PRN Pain, Moderate 02/25/24 mg tablet (4-6) #14 tabs Allergies Allergy/AdvReac Type Severity Reaction Status Date / Time bee pollen Allergy Severe Anaphylaxis Verified 10/15/23 14:22 Fish Containing Products Allergy Severe Anaphylaxis Verified 10/15/23 14:22 shellfish derived Allergy Severe Anaphylaxis Verified 10/15/23 14:22 codeine Allergy Verified 10/15/23 14:22 erythromycin base Allergy Verified 10/15/23 14:22 iodine Allergy Rash Verified 10/15/23 14:22 latex Allergy Rash Verified 10/15/23 14:22 pamabrom [From Midol] Allergy Verified 10/15/23 14:22 doxycycline AdvReac Vomiting Verified 10/15/23 14:22 Patient History Medical History Cervical spondylosis Neck pain Cervical radiculopathy CAD (coronary artery disease) Congestive heart failure COPD (chronic obstructive pulmonary disease) Surgical History AICD (automatic cardioverter/defibrillator) present H/O heart artery stent Social History household members: spouse and none lives independently: Yes Smoking Status: Former smoker alcohol intake: current Smoking Status: Current every day smoker tobacco type: cigarettes alcohol intake frequency: holidays/special occasions only Exam Narrative Exam Narrative: GENERAL: Well-developed patient, in mild distress. HEAD: Atraumatic. Normocephalic. EYES: Pupils equal round and reactive. Extraocular motions intact. No scleral icterus. No injection or drainage. ENT: Nose without bleeding, purulent drainage. Throat without erythema, tonsillar hypertrophy or exudate. Airway patent. NECK: Trachea midline. Non tender CARDIOVASCULAR: Regular rate and rhythm without murmurs, gallops, or rubs. RESPIRATORY: Some respiratory distress, intercostal and suprasternal retractions, speaks just short of full sentences. Wheeze diffuse bilateral lung holt. Left upper anterior chest pacer site scar, no tenderness or crepitance or redness GASTROINTESTINAL: Abdomen soft, non-tender, nondistended. EXTREMITIES: No edema or joint tenderness. BACK: Nontender without deformity or crepitance. No flank tenderness. NEURO: AOx3. Motor functions grossly nonfocal SKIN: No rash or erythema of visible areas Initial Vital Signs Initial Vital Signs: Vital Signs Temperature 98.1 F 05/09/24 17:25 Pulse Rate 81 05/09/24 17:25 Respiratory Rate 36 H 05/09/24 17:25 Blood Pressure 99/49 L 05/09/24 17:25 Pulse Oximetry 95 05/09/24 17:25 Oxygen Delivery Method Nasal Cannula 05/09/24 17:25 Oxygen Flow Rate 3 05/09/24 17:25 Course Orders Ordered: Acetaminophen (Acetaminophen 325 Mg Tablet) 650 mg PO Q6H PRN PRN Reason: Fever/Mild Pain (1-3) Hydrocodone Bitart/Acetaminophen (Hydrocodone/Acet 5/325 Tablet) 1 tab PO Q4HR PRN PRN Reason: Pain, Moderate (4-6) Albuterol/Ipratropium (Albuterol/Ipratropium 3 Ml Ampul) 3 ml INH RTQ4HR PRN PRN Reason: Shortness Of Breath Last Admin: 05/09/24 23:38 Dose: 3 ml Documented By: PV Albuterol/Ipratropium (Albuterol/Ipratropium 3 Ml Ampul) 3 ml INH [id number] BRANDON Last Admin: 05/10/24 06:28 Dose: 3 ml Documented By: WB Amiodarone HCl (Amiodarone 200 Mg Tablet) 100 mg PO DAILY [facility] Apixaban (Apixaban 5 Mg Tablet) 5 mg PO BID [facility] Aspirin (Aspirin 81 Mg Chew Tab) 81 mg PO DAILY [facility] Budesonide (Budesonide 0.5 Mg/2 Ml Neb) 0.5 mg INH RTBID [facility] Diazepam (Diazepam 5 Mg Tablet) 5 mg PO BID PRN PRN Reason: anxiety Fluticasone Propionate (Fluticasone 120 [place]/16 Gm [place].Susp) 2 spray NASAL BID [facility] Furosemide (Furosemide 40 Mg Tablet) 80 mg PO DAILY [facility] Glipizide (Glipizide 5 Mg Tablet) 5 mg PO DAILY [facility] Ceftriaxone Sodium 1,000 mg/ (Sodium Chloride) 100 mls @ 200 mls/hr IV DAILY [facility] Loratadine (Loratadine 10 Mg Tablet) 10 mg PO DAILY [facility] Methylprednisolone (Methylprednisolone 125 Mg/2 Ml Vial) 60 mg IV Q8H [facility] Last Admin: 05/10/24 04:42 Dose: 60 mg Documented By: Admin: 05/09/24 21:53 Dose: Not Given Documented By: WB Metoprolol Succinate (Metoprolol Er 25 Mg Tablet) 25 mg PO DAILY [facility] Montelukast Sodium (Montelukast 10 Mg Tablet) 10 mg PO BEDTIME [facility] Multivitamins (Multivitamin 1 Tablet) 1 tab PO DAILY [facility] Naloxone HCl (Naloxone 0.4 Mg/Ml Vial) 0.2 mg IV Q2MIN PRN PRN Reason: Opiate Reversal (Empagliflozin [ Jardiance] 10 Mg Tablet) 10 mg PO DAILY [facility] (Mexiletine 150 Mg (Capsule)) 150 mg PO BID [facility] (Saccharomyces Boulardii [Florastor ] 250 Mg Capsule) 250 mg PO BID [facility] (Sacubitril- Valsartan [Entresto] 24-26 Mg Tablet) 1 tab PO BID [facility] Ondansetron HCl (Ondansetron 4 Mg Odt) 4 mg PO Q8HR PRN PRN Reason: Nausea And Vomiting Pantoprazole Sodium (Pantoprazole Dr 40 Mg Tablet) 40 mg PO BID [facility] Promethazine HCl (Promethazine 25 Mg Tablet) 25 mg PO Q6H PRN PRN Reason: Nausea Discontinued Medications Albuterol (Albuterol 2.5 Mg/3 Ml Neb (Adult)) 2.5 mg INH NOW ONE Stop: 05/09/24 17:48 Last Admin: 05/10/24 00:57 Dose: Not Given Documented By: WB Albuterol (Albuterol 2.5 Mg/3 Ml Neb (Adult)) 2.5 mg INH NOW ONE Stop: 05/09/24 18:36 Last Admin: 05/09/24 18:42 Dose: 2.5 mg Documented By: DS Albuterol/Ipratropium (Albuterol/Ipratropium 3 Ml Ampul) 6 ml INH NOW ONE Stop: 05/09/24 18:08 Last Admin: 05/09/24 18:08 Dose: 6 ml Documented By: DS Furosemide (Furosemide 40 Mg/4 Ml Vial) 40 mg IV NOW ONE Stop: 05/09/24 19:06 Last Admin: 05/09/24 19:33 Dose: 40 mg Documented By: TRIXIE Heparin Sodium (Porcine) (Heparin 5,000 Unit/Ml Vial) 5,000 unit SUBCUT BID BRANDON Last Admin: 05/10/24 00:57 Dose: Not Given Documented By: JOJO Ceftriaxone Sodium 1,000 mg/ (Sodium Chloride) 100 mls @ 200 mls/hr IV NOW ONE Stop: 05/09/24 20:03 Last Admin: 05/09/24 21:54 Dose: Not Given Documented By: JOJO Methylprednisolone (Methylprednisolone 125 Mg/2 Ml Vial) 125 mg IV NOW ONE Stop: 05/09/24 17:47 Last Admin: 05/09/24 18:29 Dose: 125 mg Documented By: TRIXIE Vital Signs Vital signs: Vital Signs - 8 hr 05/09/24 17:25 05/09/24 17:34 05/09/24 17:42 Temperature 98.1 F Pulse Rate 81 35 L Respiratory Rate 36 H Blood Pressure 99/49 L 105/51 L Pulse Oximetry 95 91 Oxygen Delivery Method Nasal Cannula Heated High Flow Oxygen Flow Rate 3 Fraction of Inspired Oxygen 05/09/24 17:42 05/09/24 17:45 05/09/24 17:50 Temperature Pulse Rate 91 H 92 H 79 Respiratory Rate 42 H 38 H 35 H Blood Pressure 105/51 L Pulse Oximetry 95 94 96 Oxygen Delivery Method Oxygen Flow Rate Fraction of Inspired Oxygen 05/09/24 17:56 05/09/24 18:00 05/09/24 18:00 Temperature Pulse Rate 79 91 H Respiratory Rate 35 H 40 H Blood Pressure 105/51 L 99/54 L Pulse Oximetry 94 Oxygen Delivery Method Heated High Flow Oxygen Flow Rate 40 Fraction of Inspired Oxygen 05/09/24 18:10 05/09/24 18:15 05/09/24 18:30 Temperature Pulse Rate 89 92 H 91 H Respiratory Rate 35 H 28 H 23 Blood Pressure Pulse Oximetry 95 95 95 Oxygen Delivery Method Heated High Flow Oxygen Flow Rate 40 Fraction of Inspired Oxygen 0.40 05/09/24 18:32 05/09/24 18:32 05/09/24 18:40 Temperature Pulse Rate 87 Respiratory Rate 26 H Blood Pressure 104/54 L 97/53 L Pulse Oximetry 95 Oxygen Delivery Method Oxygen Flow Rate Fraction of Inspired Oxygen 05/09/24 18:40 05/09/24 18:42 05/09/24 18:45 Temperature Pulse Rate 91 H 91 H 89 Respiratory Rate 25 H 35 H 16 Blood Pressure Pulse Oximetry 94 94 94 Oxygen Delivery Method Heated High Flow Oxygen Flow Rate 40 Fraction of Inspired Oxygen 0.40 05/09/24 18:56 05/09/24 18:56 05/09/24 19:00 Temperature Pulse Rate 91 H Respiratory Rate 32 H Blood Pressure 108/59 L 116/55 L Pulse Oximetry 94 Oxygen Delivery Method Oxygen Flow Rate Fraction of Inspired Oxygen 05/09/24 19:00 05/09/24 19:15 Temperature Pulse Rate 92 H 90 Respiratory Rate 37 H 36 H Blood Pressure Pulse Oximetry 96 95 Oxygen Delivery Method Oxygen Flow Rate Fraction of Inspired Oxygen MDM - SOB/Dyspnea Lab Data Attestation: I reviewed the patient's lab results. Lab results narrative: White blood cell count 79897, hemoglobin 12.7, platelets adequate. BUN 19 with creatinine 1.28 noted. Glucose 174, sodium 135, potassium 3.4, serum CO2 30. Liver functions normal, lipase normal. Flu/COVID/RSV negative. 05/10/24 04:15 05/10/24 04:15 Labs: Lab Results 05/09/24 05/09/24 05/09/24 Range/Units 18:00 18:25 19:19 WBC 13.4 H (4.5-11.0) X10^3/uL RBC 4.87 (4.0-5.2) X10^6/uL Hgb 12.7 (12.0-16.0) g/dL Hct 40.4 (36-46) % MCV 83.0 (80-100) fL MCH 26.0 (26-34) PG MCHC 31.4 (30-36) % RDW 18.4 H (11.6-14.8) % Plt Count 321 (150-400) X10^3/uL Neut % (Auto) 76.4 H (50-75) % Lymph % (Auto) 12.4 L (25-40) % [place] % (Auto) 9.5 (3-14) % Eos % (Auto) 1.1 L (2-4) % Baso % (Auto) 0.6 (0-2) % Neut # (Auto) 63571 H (3795-8779) /uL Lymph # (Auto) 1700 (9103-5983) /uL [place] # (Auto) 1300 H (0-900) /uL Eos # (Auto) 100 (0-450) /uL Baso # (Auto) 100 (0-100) /uL ABG Sample Site ABG pH (7.35-7.45) ABG pCO2 (35-45) mmHg ABG pO2 (80-100) mmHg ABG HCO3 (23-27) mmol/L ABG Total CO2 (23-27) mmol/L ABG O2 Saturation (95-100) % ABG Base Excess (-2-3) mmol/L Jai Test Sodium 135 L (137-145) mmol/L Potassium 3.4 (3.4-5.1) mmol/L Chloride 101 (98-107) mmol/L Carbon Dioxide 30 (22-32) mmol/L BUN 19 H (7-17) mg/dL Creatinine 1.28 H (0.52-1.04) mg/dL Estimated GFR 48 L (>60) mL/min BUN/Creatinine Ratio 14.8 (6-22) Glucose 174 H (80-110) mg/dL Calcium 9.0 (8.4-10.2) mg/dL Total Bilirubin 0.4 (0.2-1.3) mg/dL AST 22 (14-36) IU/L ALT 20 (<35) IU/L Alkaline Phosphatase 112 (38-126) U/L Total Creatine Kinase 26 L (30-135) U/L Troponin I < 0.012 (0.01-0.034) ng/mL NT-Pro-B Natriuret Pep 698 H (<125) pg/mL Total Protein 7.1 (6.3-8.2) g/dL Albumin 3.8 (3.5-5.0) g/dL Globulin 3.3 (1.7-4.1) g/dL Albumin/Globulin Ratio 1.2 (1.0-2.8) Lipase 89 (23-300) U/L Urine Color Yellow Urine Appearance Clear Urine pH 5.5 (4.5-8.0) Ur Specific [place] 1.010 (1.000-1.035) Urine Protein Negative (Negative) Urine Glucose (UA) 3+ H (Negative) g/dL Urine Ketones Negative (NEGATIVE) Urine Occult Blood Negative (Negative) Urine Nitrate Positive H (Negative) Urine Bilirubin Negative (NEGATIVE) Urine Urobilinogen 0.2 (0.2) E.U./dL Ur Leukocyte Esterase Negative (NEGATIVE) Urine RBC 0-1/hpf (0-5/HPF) Urine WBC 0-1/hpf (0-5/HPF) Ur Squamous Epith Cells 0-1 /hpf (0-5/HPF) Urine Bacteria Many (>30) H (None) Ur Culture Indicated? Specimen cultured Vol Urine Centrifuged 10ml (spun) SARS-CoV-2 (PCR) Negative (Negative) Influenza A (RT-PCR) Flu a negative (NEGATIVE) Influenza B (RT-PCR) Flu b negative (NEGATIVE) RSV (PCR) Negative (Negative) 05/09/24 Range/Units 19:34 WBC (4.5-11.0) X10^3/uL RBC (4.0-5.2) X10^6/uL Hgb (12.0-16.0) g/dL Hct (36-46) % MCV (80-100) fL MCH (26-34) PG MCHC (30-36) % RDW (11.6-14.8) % Plt Count (150-400) X10^3/uL Neut % (Auto) (50-75) % Lymph % (Auto) (25-40) % [place] % (Auto) (3-14) % Eos % (Auto) (2-4) % Baso % (Auto) (0-2) % Neut # (Auto) (1543-7669) /uL Lymph # (Auto) (7181-7610) /uL [place] # (Auto) (0-900) /uL Eos # (Auto) (0-450) /uL Baso # (Auto) (0-100) /uL ABG Sample Site Left radial ABG pH 7.38 (7.35-7.45) ABG pCO2 53.3 H (35-45) mmHg ABG pO2 61 L (80-100) mmHg ABG HCO3 32 H (23-27) mmol/L ABG Total CO2 31 H (23-27) mmol/L ABG O2 Saturation 90 L (95-100) % ABG Base Excess 5.1 H (-2-3) mmol/L Jai Test Positive Sodium (137-145) mmol/L Potassium (3.4-5.1) mmol/L Chloride (98-107) mmol/L Carbon Dioxide (22-32) mmol/L BUN (7-17) mg/dL Creatinine (0.52-1.04) mg/dL Estimated GFR (>60) mL/min BUN/Creatinine Ratio (6-22) Glucose (80-110) mg/dL Calcium (8.4-10.2) mg/dL Total Bilirubin (0.2-1.3) mg/dL AST (14-36) IU/L ALT (<35) IU/L Alkaline Phosphatase (38-126) U/L Total Creatine Kinase (30-135) U/L Troponin I (0.01-0.034) ng/mL NT-Pro-B Natriuret Pep (<125) pg/mL Total Protein (6.3-8.2) g/dL Albumin (3.5-5.0) g/dL Globulin (1.7-4.1) g/dL Albumin/Globulin Ratio (1.0-2.8) Lipase (23-300) U/L Urine Color Urine Appearance Urine pH (4.5-8.0) Ur Specific [place] (1.000-1.035) Urine Protein (Negative) Urine Glucose (UA) (Negative) g/dL Urine Ketones (NEGATIVE) Urine Occult Blood (Negative) Urine Nitrate (Negative) Urine Bilirubin (NEGATIVE) Urine Urobilinogen (0.2) E.U./dL Ur Leukocyte Esterase (NEGATIVE) Urine RBC (0-5/HPF) Urine WBC (0-5/HPF) Ur Squamous Epith Cells (0-5/HPF) Urine Bacteria (None) Ur Culture Indicated? Vol Urine Centrifuged SARS-CoV-2 (PCR) (Negative) Influenza A (RT-PCR) (NEGATIVE) Influenza B (RT-PCR) (NEGATIVE) RSV (PCR) (Negative) Imaging Data Chest x-ray: Radiologist's Impression: [address] [address] XRay Report Signed Patient: Bernarda Chong MR#: [id number] : 1965 Acct:[id number] Age/Sex: 59 / F Date of Service: 05/09/24 Loc: ED Accession Number: [id number] Procedure: XR chest 1V Ordering Provider: Pipe Salinas MD PROCEDURE: XR CHEST 1V INDICATIONS: chest pain TECHNIQUE: One view of the chest was acquired. COMPARISON: [facility], CT, CT CHEST ABD PEL W CON, 10/04/2023, 15:16. [facility], CR, XR CHEST 1V, 02/21/2024, 19:08. [facility], CR, XR CHEST FOR PICC 1V, 10/04/2023, 14:33. FINDINGS: Surgical changes and devices: Left pacemaker/AICD. Lungs and pleura: No consolidation. Right upper lobe calcified granuloma. No pleural effusions or pneumothorax. Mediastinum: Mediastinal contours appear normal. Heart size is prominent. Bones and chest wall: No suspicious bony lesions. Overlying soft tissues appear unremarkable. IMPRESSION: No acute cardiopulmonary abnormality is seen. Dictated by: Pedro Luis Nunes M.D. on 05/09/2024 at 19:17 Approved by: Pedro Luis Nunes M.D. on 05/09/2024 at 19:21 ECG Data Attestation: I personally reviewed and interpreted this ECG as follows: Interpretation: 1755, ventricular paced rhythm with rate 91, QRS 176, QTC 570. 1858, ventricular paced rhythm with rate 92. QRS 164, QTC 541. MDM Narrative Medical decision making narrative: 59-year-old female with history of congestive heart failure, COPD, chronic oxygen at 3 L home, AICD/pacer, amiodarone, Eliquis chronic anticoagulation, home SVN, has 3 days duration of increasing shortness of breath, wheezing on examination, just short of full sentences speech. IV Solu-Medrol, serial nebulized albuterol treatments. Chest x-ray without obvious lobar infiltrate, pacer noted left upper chest, ED wet read, official radiology report still pending. BNP pending. Electrolytes unremarkable. Renal function okay, potassium level okay, IV Lasix dose added. ABG pending. COVID/RSV/flu negative. Pacer interrogation requested Pacer interrogation study, avid faxed report. Diagnostic summary since 11/22/2023, no VT/VF episodes, no shocks delivered, no SVT episodes, no nonsustained episodes. Chest x-ray no acute changes, see radiology report. BNP 698 not very elevated. Urinalysis shows urine infection, urine culture requested. Blood cultures. IV ceftriaxone for UTI coverage. We will contact hospitalist regarding admission for COPD exacerbation, also has UTI, PCP mc, we will contact hospitalist. 2029, case discussed with hospitalist Dr. Valerio who accepts patient for admission Critical Care Time Critical Care Time Critical Care Time: Yes Total Critical Care Time: 35 Attestation: The high probability of a clinically significant, sudden or life threatening deterioration of the [cardiopulmonary] system(s) required my full and direct attention, intervention and personal management. The aggregate critical care time was [35] minutes. This time is in addition to time spent performing reported procedures but includes the following: [x] Data Review and interpretation [x] Patient assessment and monitoring of vital signs [x] Documentation [x] Medication orders and management Discharge Plan Departure Patient Disposition: Admitted As Inpatient Clinical Impression: Dyspnea, COPD exacerbation, Congestive heart failure, Urinary tract infection Admit Date/Time: 05/09/24 20:21 Admit Provider: Bossman Valerio
--- NOTE | 2024-05-09 19:04 | PC.NURSE ---
pt implantable defibrillator ,mercedes
[2024-05-09] MEDS: FUROSEMIDE 40 MG/4 ML VIAL IV (19:33)
--- NOTE | 2024-05-09 19:35 | PC.NURSE ---
pre catheter insertion
[2024-05-09 19:38] LABS: NT-proBNP (BNP-Adult 18+) 698 pg/mL (<125)
[2024-05-09 19:38] LABS: Allen Test for ABG Passed? Positive; Base Excess ABG 5.1 mmol/L (-2-3); Blood Gas Collection Site Left Radial; HCO3 ABG 32 mmol/L (23-27); Oxygen Saturation ABG 90 % (95-100); PCO2 ABG 53.3 mmHg (35-45); PO2 ABG 61 mmHg (80-100); TCO2 ABG 31 mmol/L (23-27); pH ABG 7.38 (7.35-7.45)
[2024-05-09 19:40] LABS: Appearance Urine UA CLEAR; Bilirubin Urine UA NEGATIVE (NEGATIVE); Color Urine UA YELLOW; Glucose Urine UA 3+ g/dL (Negative); Ketones Urine UA NEGATIVE (NEGATIVE); Leukocyte Esterase Urine UA NEGATIVE (NEGATIVE); Nitrite Urine UA POSITIVE (Negative); Occult Blood Urine UA NEGATIVE (Negative); Protein Urine UA NEGATIVE (Negative); Urobilinogen Urine UA 0.2 E.U./dL (0.2)
[2024-05-09 19:44] LABS: pH Urine UA 5.5 (4.5-8.0)
[2024-05-09 19:46] LABS: Bacteria Urine Many (>30); Culture Indicated Urine Specimen Cultured; RBC Urine 0-1/HPF (0-5/HPF); Squamous Epithelial Cell Urine 0-1 /HPF (0-5/HPF); Urine Volume 10mL (spun); WBC Urine 0-1/HPF (0-5/HPF)
[2024-05-09 23:02] LABS: MRSA (Nasal) PCR NOT DETECTED (Not Detect)
[2024-05-09] MEDS: ALBUTEROL/IPRATROPIUM 3 ML AMPUL INH (23:38)
[2024-05-10] VITALS (34 sets, daily range): BP systolic 82–139; BP diastolic 53–58; PULSE 66–110; RESP 20–39; TEMP 36.2–36.5; O2SAT 89–99
--- NOTE | 2024-05-10 02:56 | PM.HP.1 ---
History of Present Illness History of Present Illness Chief complaint: Wheezing, COPD Narrative: 59 year-old female with past medical history of CHF, COPD on 3 L of oxygen at baseline, non-dependent diabetes and atrial fibrillation on Eliquis and amiodarone s/p pacemaker presents with coughing and shortness of breath. The patient reports that about five days ago, she has noticed increasing shortness of breath with coughing. The patient however denies any chest pain or palpitation. The patient also denies any fever, chills, nausea, vomiting or diarrhea. Despite taking her home inhalers the patient's symptoms did not improve and the patient decide to come in. In our emergency room, the patient was in respiratory stress but was hemodynamically stable. The patient respiratory rate was in the 30s. The patient oxygen saturation however was still above 90% on her 3 L of oxygen. ABG shows a pH of 7.37, PCO2 in the 50s and PO2 61. Chest x-ray shows no clear signs of pneumonia or volume overload. UA suggested UTI. WBC was 13,000. BMP was 600s. The patient was given IV Lasix, Solumedrol and duonebs as well as Ceftriaxone. [facility] Medical History Cervical spondylosis Neck pain Cervical radiculopathy CAD (coronary artery disease) Congestive heart failure COPD (chronic obstructive pulmonary disease) Surgical History AICD (automatic cardioverter/defibrillator) present H/O heart artery stent Social History household members: spouse and none lives independently: Yes Smoking Status: Former smoker alcohol intake: current Meds Home Medications and Allergies Home Medications Medication Instructions Recorded Confirmed Type albuterol sulfate 90 mcg/actuation 2 puff inhalation QID PRN 07/17/22 05/09/24 History aerosol inhaler (Ventolin HFA) Shortness Of Breath amiodarone 200 mg tablet 100 mg PO DAILY 07/17/22 05/09/24 History apixaban 5 mg tablet (Eliquis) 5 mg PO BID 07/17/22 05/09/24 History metoprolol succinate 25 mg 25 mg PO DAILY 08/29/22 05/09/24 History tablet,extended release 24 hr multivitamin 1 tab PO DAILY 08/29/22 05/09/24 History promethazine 25 mg tablet 25 mg PO Q6H PRN Nausea 08/29/22 05/09/24 History fluticasone propionate 50 2 spray intranasal BID 11/07/22 05/09/24 History mcg/actuation nasal spray,suspension albuterol sulfate 2.5 mg/3 mL 2.5 mg inhalation 4XD PRN wheezing 08/01/23 05/09/24 History (0.083 %) solution for nebulization budesonide 0.5 mg/2 mL suspension 0.5 mg inhalation BID 08/01/23 05/09/24 History for nebulization empagliflozin 10 mg tablet 10 mg PO DAILY 08/01/23 05/09/24 History (Jardiance) mexiletine 150 mg capsule 150 mg PO BID 08/01/23 05/09/24 History montelukast 10 mg tablet 10 mg PO BEDTIME 08/01/23 05/09/24 History sacubitril 24 mg-valsartan 26 mg 1 tab PO BID 08/01/23 05/09/24 History tablet (Entresto) pantoprazole 40 mg tablet,delayed 40 mg PO BID #60 tabs 10/07/23 05/09/24 Rx release (Protonix) furosemide 80 mg tablet 80 mg PO DAILY 10/15/23 05/09/24 History diazepam 5 mg tablet (Valium) 5 mg PO BID PRN anxiety #14 tabs 02/25/24 05/09/24 Rx hydrocodone 5 mg-acetaminophen 325 1 tab PO Q4HR PRN Pain, Moderate 02/25/24 05/09/24 Rx mg tablet (4-6) #14 tabs Saccharomyces boulardii 250 mg 250 mg PO BID 05/09/24 05/09/24 History capsule (Florastor) aspirin 81 mg tablet 81 mg PO DAILY 05/09/24 05/09/24 History cetirizine 10 mg tablet (All Day 10 mg PO DAILY 05/09/24 05/09/24 History Allergy (cetirizine)) glipizide 5 mg tablet 5 mg PO DAILY 05/09/24 05/09/24 History Allergies Allergy/AdvReac Type Severity Reaction Status Date / Time bee pollen Allergy Severe Anaphylaxis Verified 10/15/23 14:22 Fish Containing Products Allergy Severe Anaphylaxis Verified 10/15/23 14:22 shellfish derived Allergy Severe Anaphylaxis Verified 10/15/23 14:22 codeine Allergy Verified 10/15/23 14:22 erythromycin base Allergy Verified 10/15/23 14:22 iodine Allergy Rash Verified 10/15/23 14:22 latex Allergy Rash Verified 10/15/23 14:22 pamabrom [From Midol] Allergy Verified 10/15/23 14:22 doxycycline AdvReac Vomiting Verified 10/15/23 14:22 Review of Systems Review of Systems ROS: Yes All systems reviewed with the patient and are negative except as otherwise documented Exam Vital Signs (past 8 hours): - 05/09/24 19:00 05/09/24 19:00 05/09/24 19:15 Pulse Rate 92 H 90 Respiratory Rate 37 H 36 H Blood Pressure 116/55 L Pulse Oximetry 96 95 Oxygen Delivery Method Oxygen Flow Rate Fraction of Inspired Oxygen 05/09/24 19:30 05/09/24 19:37 05/09/24 19:37 Pulse Rate 92 H 91 H Respiratory Rate 40 H 26 H Blood Pressure 109/54 L Pulse Oximetry 93 93 Oxygen Delivery Method Oxygen Flow Rate Fraction of Inspired Oxygen 05/09/24 19:45 05/09/24 20:00 05/09/24 20:00 Pulse Rate 93 H 95 H Respiratory Rate 35 H 33 H Blood Pressure 98/54 L Pulse Oximetry 94 92 Oxygen Delivery Method Oxygen Flow Rate Fraction of Inspired Oxygen 05/09/24 20:15 05/09/24 20:30 05/09/24 20:30 Pulse Rate 95 H 99 H Respiratory Rate 39 H 21 Blood Pressure 118/75 Pulse Oximetry 90 L 92 Oxygen Delivery Method Oxygen Flow Rate Fraction of Inspired Oxygen 05/09/24 20:45 05/09/24 20:46 05/09/24 21:00 Pulse Rate 92 H 89 Respiratory Rate 37 H 29 H Blood Pressure Pulse Oximetry 92 92 Oxygen Delivery Method High Flow Nasal Cannula Heated High Flow Room Air Oxygen Flow Rate Fraction of Inspired Oxygen 05/09/24 21:30 05/09/24 21:37 05/09/24 21:37 Pulse Rate 95 H 96 H Respiratory Rate 14 18 Blood Pressure 94/55 L Pulse Oximetry 95 94 Oxygen Delivery Method Oxygen Flow Rate Fraction of Inspired Oxygen 05/09/24 21:45 05/09/24 22:00 05/09/24 22:15 Pulse Rate 96 H 95 H 93 H Respiratory Rate 24 19 34 H Blood Pressure Pulse Oximetry 93 94 91 Oxygen Delivery Method Oxygen Flow Rate Fraction of Inspired Oxygen 05/09/24 22:30 05/09/24 22:45 05/09/24 23:00 Pulse Rate 92 H 92 H 92 H Respiratory Rate 36 H 34 H 36 H Blood Pressure Pulse Oximetry 91 90 L 89 L Oxygen Delivery Method Oxygen Flow Rate Fraction of Inspired Oxygen 05/09/24 23:15 05/09/24 23:30 05/09/24 23:42 Pulse Rate 92 H 91 H 86 Respiratory Rate 34 H 36 H 20 Blood Pressure Pulse Oximetry 92 91 92 Oxygen Delivery Method High Flow Nasal Cannula Oxygen Flow Rate 40 Fraction of Inspired Oxygen 40 05/09/24 23:44 05/09/24 23:45 05/10/24 00:00 Pulse Rate 83 84 84 Respiratory Rate 22 33 H 34 H Blood Pressure 94/55 L Pulse Oximetry 93 92 91 Oxygen Delivery Method Oxygen Flow Rate Fraction of Inspired Oxygen 05/10/24 00:15 05/10/24 00:30 05/10/24 00:45 Pulse Rate 84 89 86 Respiratory Rate 30 H 34 H 30 H Blood Pressure Pulse Oximetry 92 91 89 L Oxygen Delivery Method Oxygen Flow Rate Fraction of Inspired Oxygen 05/10/24 01:00 05/10/24 01:15 05/10/24 01:30 Pulse Rate 81 84 86 Respiratory Rate 31 H 32 H 30 H Blood Pressure Pulse Oximetry 90 L 90 L 92 Oxygen Delivery Method Oxygen Flow Rate Fraction of Inspired Oxygen 05/10/24 01:45 05/10/24 02:00 05/10/24 02:15 Pulse Rate 83 89 86 Respiratory Rate 35 H 33 H 39 H Blood Pressure Pulse Oximetry 92 90 L 90 L Oxygen Delivery Method Oxygen Flow Rate Fraction of Inspired Oxygen 05/10/24 02:30 Pulse Rate 104 H Respiratory Rate 34 H Blood Pressure Pulse Oximetry 90 L Oxygen Delivery Method Oxygen Flow Rate Fraction of Inspired Oxygen Fraction of Inspired Oxygen 40 SaO2/FiO2 Ratio 230 Oxygen Delivery Method High Flow Nasal Cannula Oxygen Flow Rate 40 Narrative Exam Narrative: Physical Exam: GENERAL: The patient is not in any acute distressed. Awake and alert. HEENT: Nonicteric sclerae, PERRLA, EOMI. Oropharynx clear. Moist mucous membranes. Conjunctivae appear well perfused. HEART: Regular rate and rhythm without murmurs. No lower extremities edema. LUNGS: Clear to auscultation bilaterally. No wheezing, crackles or rhonchi ABDOMEN: Soft, positive bowel sounds, nontender. SKIN: No rash, no excessive bruising, petechiae, or purpura. NEUROLOGIC: AxO x 3. Cranial nerves II-XII intact without motor/sensory deficit. Objective Labs 05/09/24 18:25 05/09/24 18:25 Labs: Laboratory Results - last 24 hr 05/09/24 05/09/24 05/09/24 18:00 18:25 19:19 WBC 13.4 H RBC 4.87 Hgb 12.7 Hct 40.4 MCV 83.0 MCH 26.0 MCHC 31.4 RDW 18.4 H Plt Count 321 Neut % (Auto) 76.4 H Lymph % (Auto) 12.4 L [place] % (Auto) 9.5 Eos % (Auto) 1.1 L Baso % (Auto) 0.6 Neut # (Auto) 42633 H Lymph # (Auto) 1700 [place] # (Auto) 1300 H Eos # (Auto) 100 Baso # (Auto) 100 ABG Sample Site ABG pH ABG pCO2 ABG pO2 ABG HCO3 ABG Total CO2 ABG O2 Saturation ABG Base Excess Jai Test Sodium 135 L Potassium 3.4 Chloride 101 Carbon Dioxide 30 BUN 19 H Creatinine 1.28 H Estimated GFR 48 L BUN/Creatinine Ratio 14.8 Glucose 174 H Calcium 9.0 Total Bilirubin 0.4 AST 22 ALT 20 Alkaline Phosphatase 112 Total Creatine Kinase 26 L Troponin I < 0.012 NT-Pro-B Natriuret Pep 698 H Total Protein 7.1 Albumin 3.8 Globulin 3.3 Albumin/Globulin Ratio 1.2 Lipase 89 Urine Color Yellow Urine Appearance Clear Urine pH 5.5 Ur Specific [place] 1.010 Urine Protein Negative Urine Glucose (UA) 3+ H Urine Ketones Negative Urine Occult Blood Negative Urine Nitrate Positive H Urine Bilirubin Negative Urine Urobilinogen 0.2 Ur Leukocyte Esterase Negative Urine RBC 0-1/hpf Urine WBC 0-1/hpf Ur Squamous Epith Cells 0-1 /hpf Urine Bacteria Many (>30) H Ur Culture Indicated? Specimen cultured Vol Urine Centrifuged 10ml (spun) Nasal Screen MRSA (PCR) SARS-CoV-2 (PCR) Negative Influenza A (RT-PCR) Flu a negative Influenza B (RT-PCR) Flu b negative RSV (PCR) Negative 05/09/24 05/09/24 19:34 21:28 WBC RBC Hgb Hct MCV MCH MCHC RDW Plt Count Neut % (Auto) Lymph % (Auto) [place] % (Auto) Eos % (Auto) Baso % (Auto) Neut # (Auto) Lymph # (Auto) [place] # (Auto) Eos # (Auto) Baso # (Auto) ABG Sample Site Left radial ABG pH 7.38 ABG pCO2 53.3 H ABG pO2 61 L ABG HCO3 32 H ABG Total CO2 31 H ABG O2 Saturation 90 L ABG Base Excess 5.1 H Jai Test Positive Sodium Potassium Chloride Carbon Dioxide BUN Creatinine Estimated GFR BUN/Creatinine Ratio Glucose Calcium Total Bilirubin AST ALT Alkaline Phosphatase Total Creatine Kinase Troponin I NT-Pro-B Natriuret Pep Total Protein Albumin Globulin Albumin/Globulin Ratio Lipase Urine Color Urine Appearance Urine pH Ur Specific [place] Urine Protein Urine Glucose (UA) Urine Ketones Urine Occult Blood Urine Nitrate Urine Bilirubin Urine Urobilinogen Ur Leukocyte Esterase Urine RBC Urine WBC Ur Squamous Epith Cells Urine Bacteria Ur Culture Indicated? Vol Urine Centrifuged Nasal Screen MRSA (PCR) Not detected SARS-CoV-2 (PCR) Influenza A (RT-PCR) Influenza B (RT-PCR) RSV (PCR) Assessment & Plan Assessment & Plan narrative: COPD exacerbation. Admit the patient to medical telemetry as inpatient. Continue IV Soluomedrol and duonebs. CHF. No clear signs of volume overload. Will monitor I/Os and daily weight. Will give additional lasix if needed. UTI. Continue IVF Ceftriaxone History of arrhythmia/afib on amiodarone and Eliquis. Resume home medication. Non-Insulin dependent diabetes. Hold all home medication and monitor glucose with SQ insulin. DVT prophylaxis Eliquis. Status full code. Disposition likely home in two days. Time-Based Coding :: [TOTAL MINUTES] spent with patient and on the chart (including review of chart, obtaining history, exam, reviewing outside data, placing orders, documenting exam and treatment plan, and counseling patient) on [DATE].
--- NOTE | 2024-05-10 03:04 | PC.NURSE ---
Patient brought home medications with her. Locked in cleaning matron room. Counted Hydrocodone that patient had in bag with Mitchell BONILLA, noted to have 3 whole pills in bottle. No other controlled substances noted.
[2024-05-10] MEDS: methylPREDNISolone 125 MG/2 ML VIAL 60 MG IV ×3 (04:42→20:41)
[2024-05-10 05:27] LABS: Add Manual Diff / Slide Review NO; Basophils Absolute Auto 0 /uL (0-100); Basophils Percent Auto 0.3 % (0-2); Eosinophils Absolute Auto 0 /uL (0-450); Hematocrit 40.6 % (36-46); Hemoglobin 12.8 g/dL (12.0-16.0); Lymphocytes Absolute Auto 500 /uL (1100-4500); Lymphocytes Percent Auto 4.6 % (25-40); Mean Corpuscular HGB Conc 31.6 % (30-36); Mean Corpuscular Hemoglobin 26.2 PG (26-34); Mean Corpuscular Volume 82.9 fL (80-100); Monocytes Absolute Auto 100 /uL (0-900); Monocytes Percent Auto 1.2 % (3-14); Neutrophils Absolute Auto 9600 /uL (1500-7000); Neutrophils Percent Auto 93.9 % (50-75); Platelet Count 290 X10^3/uL (150-400); Red Blood Cell Count 4.89 X10^6/uL (4.0-5.2); Red Cell Distribution Width 18.4 % (11.6-14.8); White Blood Cell Count 10.2 X10^3/uL (4.5-11.0)
[2024-05-10 05:30] LABS: BUN Creatinine Ratio 18.3 (6-22); Blood Urea Nitrogen 22 mg/dL (7-17); Calcium 9.3 mg/dL (8.4-10.2); Carbon Dioxide 30 mmol/L (22-32); Chloride 99 mmol/L (98-107); Estimated Glomerular Filt Rate 52 mL/min (>60); Glucose 334 mg/dL (80-110); HEMOLYSIS < 15 (0-50); Potassium 3.3 mmol/L (3.4-5.1); Sodium 135 mmol/L (137-145)
[2024-05-10] MEDS: ALBUTEROL/IPRATROPIUM 3 ML AMPUL INH ×3 (06:28→20:30)
--- NOTE | 2024-05-10 07:30 | P.HP_ITS ---
History of Present Illness History of Present Illness Chief complaint: Wheezing, COPD Narrative: From Night Doctor: 59 year-old female with past medical history of CHF, COPD on 3 L of oxygen at baseline, non-dependent diabetes and atrial fibrillation on Eliquis and amiodarone s/p pacemaker presents with coughing and shortness of breath. The patient reports that about five days ago, she has noticed increasing shortness of breath with coughing. The patient however denies any chest pain or palpitation. The patient also denies any fever, chills, nausea, vomiting or diarrhea. Despite taking her home inhalers the patient's symptoms did not improve and the patient decide to come in. In our emergency room, the patient was in respiratory stress but was hemodynamically stable. The patient respiratory rate was in the 30s. The patient oxygen saturation however was still above 90% on her 3 L of oxygen. ABG shows a pH of 7.37, PCO2 in the 50s and PO2 61. Chest x-ray shows no clear signs of pneumonia or volume overload. UA suggested UTI. WBC was 13,000. BMP was 600s. The patient was given IV Lasix, Solumedrol and duonebs as well as Ceftriaxone. Additional information: She was had colored sputum production for the last 5 days. Mostly green. She denies any chest pain, or fevers. She was comfortable on high-flow oxygen. [facility] Medical History Cervical spondylosis Neck pain Cervical radiculopathy CAD (coronary artery disease) Congestive heart failure COPD (chronic obstructive pulmonary disease) Surgical History AICD (automatic cardioverter/defibrillator) present H/O heart artery stent Social History household members: spouse and none lives independently: Yes Smoking Status: Former smoker alcohol intake: current Meds Home Medications and Allergies Home Medications Medication Instructions Recorded Confirmed Type albuterol sulfate 90 mcg/actuation 2 puff inhalation QID PRN 07/17/22 05/09/24 History aerosol inhaler (Ventolin HFA) Shortness Of Breath amiodarone 200 mg tablet 100 mg PO DAILY 07/17/22 05/09/24 History apixaban 5 mg tablet (Eliquis) 5 mg PO BID 07/17/22 05/09/24 History metoprolol succinate 25 mg 25 mg PO DAILY 08/29/22 05/09/24 History tablet,extended release 24 hr multivitamin 1 tab PO DAILY 08/29/22 05/09/24 History promethazine 25 mg tablet 25 mg PO Q6H PRN Nausea 08/29/22 05/09/24 History fluticasone propionate 50 2 spray intranasal BID 11/07/22 05/09/24 History mcg/actuation nasal spray,suspension albuterol sulfate 2.5 mg/3 mL 2.5 mg inhalation 4XD PRN wheezing 08/01/23 05/09/24 History (0.083 %) solution for nebulization budesonide 0.5 mg/2 mL suspension 0.5 mg inhalation BID 08/01/23 05/09/24 History for nebulization empagliflozin 10 mg tablet 10 mg PO DAILY 08/01/23 05/09/24 History (Jardiance) mexiletine 150 mg capsule 150 mg PO BID 08/01/23 05/09/24 History montelukast 10 mg tablet 10 mg PO BEDTIME 08/01/23 05/09/24 History sacubitril 24 mg-valsartan 26 mg 1 tab PO BID 08/01/23 05/09/24 History tablet (Entresto) pantoprazole 40 mg tablet,delayed 40 mg PO BID #60 tabs 10/07/23 05/09/24 Rx release (Protonix) furosemide 80 mg tablet 80 mg PO DAILY 10/15/23 05/09/24 History diazepam 5 mg tablet (Valium) 5 mg PO BID PRN anxiety #14 tabs 02/25/24 05/09/24 Rx hydrocodone 5 mg-acetaminophen 325 1 tab PO Q4HR PRN Pain, Moderate 02/25/24 05/09/24 Rx mg tablet (4-6) #14 tabs Saccharomyces boulardii 250 mg 250 mg PO BID 05/09/24 05/09/24 History capsule (Florastor) aspirin 81 mg tablet 81 mg PO DAILY 05/09/24 05/09/24 History cetirizine 10 mg tablet (All Day 10 mg PO DAILY 05/09/24 05/09/24 History Allergy (cetirizine)) glipizide 5 mg tablet 5 mg PO DAILY 05/09/24 05/09/24 History Allergies Allergy/AdvReac Type Severity Reaction Status Date / Time bee pollen Allergy Severe Anaphylaxis Verified 10/15/23 14:22 Fish Containing Products Allergy Severe Anaphylaxis Verified 10/15/23 14:22 shellfish derived Allergy Severe Anaphylaxis Verified 10/15/23 14:22 codeine Allergy Verified 10/15/23 14:22 erythromycin base Allergy Verified 10/15/23 14:22 iodine Allergy Rash Verified 10/15/23 14:22 latex Allergy Rash Verified 10/15/23 14:22 pamabrom [From Midol] Allergy Verified 10/15/23 14:22 doxycycline AdvReac Vomiting Verified 10/15/23 14:22 Review of Systems Review of Systems Narrative: All else reviewed and otherwise unremarkable except as noted in the history and physical. Exam Vital Signs (past 8 hours): - 05/09/24 23:42 05/09/24 23:44 05/09/24 23:45 Temperature Pulse Rate 86 83 84 Respiratory Rate 20 22 33 H Blood Pressure 94/55 L Pulse Oximetry 92 93 92 Oxygen Delivery Method High Flow Nasal Cannula Oxygen Flow Rate 40 Fraction of Inspired Oxygen 40 05/10/24 00:00 05/10/24 00:15 05/10/24 00:30 Temperature Pulse Rate 84 84 89 Respiratory Rate 34 H 30 H 34 H Blood Pressure Pulse Oximetry 91 92 91 Oxygen Delivery Method Oxygen Flow Rate Fraction of Inspired Oxygen 05/10/24 00:45 05/10/24 01:00 05/10/24 01:15 Temperature Pulse Rate 86 81 84 Respiratory Rate 30 H 31 H 32 H Blood Pressure Pulse Oximetry 89 L 90 L 90 L Oxygen Delivery Method Oxygen Flow Rate Fraction of Inspired Oxygen 05/10/24 01:30 05/10/24 01:45 05/10/24 02:00 Temperature Pulse Rate 86 83 89 Respiratory Rate 30 H 35 H 33 H Blood Pressure Pulse Oximetry 92 92 90 L Oxygen Delivery Method Oxygen Flow Rate Fraction of Inspired Oxygen 05/10/24 02:15 05/10/24 02:30 05/10/24 02:45 Temperature Pulse Rate 86 104 H 83 Respiratory Rate 39 H 34 H 30 H Blood Pressure Pulse Oximetry 90 L 90 L 93 Oxygen Delivery Method Oxygen Flow Rate Fraction of Inspired Oxygen 05/10/24 03:00 05/10/24 03:15 05/10/24 03:30 Temperature Pulse Rate 93 H 91 H 109 H Respiratory Rate 31 H 31 H 28 H Blood Pressure Pulse Oximetry 91 92 91 Oxygen Delivery Method Oxygen Flow Rate Fraction of Inspired Oxygen 05/10/24 03:45 05/10/24 04:00 05/10/24 04:00 Temperature 97.7 F Pulse Rate 85 80 Respiratory Rate 28 H 30 H Blood Pressure Pulse Oximetry 91 92 Oxygen Delivery Method Oxygen Flow Rate Fraction of Inspired Oxygen 05/10/24 04:07 05/10/24 04:07 05/10/24 04:09 Temperature Pulse Rate 83 78 Respiratory Rate 30 H 21 Blood Pressure 82/53 L Pulse Oximetry 90 L 91 Oxygen Delivery Method Oxygen Flow Rate Fraction of Inspired Oxygen 05/10/24 04:09 05/10/24 04:10 05/10/24 04:10 Temperature Pulse Rate 77 Respiratory Rate 21 Blood Pressure 99/57 L 105/57 L Pulse Oximetry 94 Oxygen Delivery Method Oxygen Flow Rate Fraction of Inspired Oxygen 05/10/24 04:15 Temperature Pulse Rate 95 H Respiratory Rate 31 H Blood Pressure Pulse Oximetry 89 L Oxygen Delivery Method Oxygen Flow Rate Fraction of Inspired Oxygen Fraction of Inspired Oxygen 40 SaO2/FiO2 Ratio 230 Oxygen Delivery Method High Flow Nasal Cannula Oxygen Flow Rate 40 Narrative Exam Narrative: NAD, alert and oriented, fluent speech, calm. She is comfortable on high-flow oxygen. Normocephalic skull, EOMI, anicteric sclera, symmetric pupils. Oropharynx unremarkable, no droop. Neck supple, midline trachea, no adenopathy. Lungs clear, normal rate and effort. Heart regular, no murmur gallop or rub. Abdomen is soft, non distended and non tender. Extremities are free of edema. Skin is free of rash or lesions. Joints are not swollen or deformed. Judgment appears to be normal. Objective ECG Impression: Ventricular-paced rhythm Imaging Chest x-ray: My impression: Pulmonary edema. Radiologist's impression: FINDINGS: Surgical changes and devices: Left pacemaker/AICD. Lungs and pleura: No consolidation. Right upper lobe calcified granuloma. No pleural effusions or pneumothorax. Mediastinum: Mediastinal contours appear normal. Heart size is prominent. Bones and chest wall: No suspicious bony lesions. Overlying soft tissues appear unremarkable. IMPRESSION: No acute cardiopulmonary abnormality is seen. Labs 05/10/24 04:15 05/10/24 04:15 Labs: Laboratory Results - last 24 hr 05/09/24 05/09/24 05/09/24 18:00 18:25 19:19 WBC 13.4 H RBC 4.87 Hgb 12.7 Hct 40.4 MCV 83.0 MCH 26.0 MCHC 31.4 RDW 18.4 H Plt Count 321 Neut % (Auto) 76.4 H Lymph % (Auto) 12.4 L [place] % (Auto) 9.5 Eos % (Auto) 1.1 L Baso % (Auto) 0.6 Neut # (Auto) 94840 H Lymph # (Auto) 1700 [place] # (Auto) 1300 H Eos # (Auto) 100 Baso # (Auto) 100 ABG Sample Site ABG pH ABG pCO2 ABG pO2 ABG HCO3 ABG Total CO2 ABG O2 Saturation ABG Base Excess Jai Test Sodium 135 L Potassium 3.4 Chloride 101 Carbon Dioxide 30 BUN 19 H Creatinine 1.28 H Estimated GFR 48 L BUN/Creatinine Ratio 14.8 Glucose 174 H Calcium 9.0 Total Bilirubin 0.4 AST 22 ALT 20 Alkaline Phosphatase 112 Total Creatine Kinase 26 L Troponin I < 0.012 NT-Pro-B Natriuret Pep 698 H Total Protein 7.1 Albumin 3.8 Globulin 3.3 Albumin/Globulin Ratio 1.2 Lipase 89 Urine Color Yellow Urine Appearance Clear Urine pH 5.5 Ur Specific [place] 1.010 Urine Protein Negative Urine Glucose (UA) 3+ H Urine Ketones Negative Urine Occult Blood Negative Urine Nitrate Positive H Urine Bilirubin Negative Urine Urobilinogen 0.2 Ur Leukocyte Esterase Negative Urine RBC 0-1/hpf Urine WBC 0-1/hpf Ur Squamous Epith Cells 0-1 /hpf Urine Bacteria Many (>30) H Ur Culture Indicated? Specimen cultured Vol Urine Centrifuged 10ml (spun) Nasal Screen MRSA (PCR) SARS-CoV-2 (PCR) Negative Influenza A (RT-PCR) Flu a negative Influenza B (RT-PCR) Flu b negative RSV (PCR) Negative 05/09/24 05/09/24 05/10/24 19:34 21:28 04:15 WBC 10.2 RBC 4.89 Hgb 12.8 Hct 40.6 MCV 82.9 MCH 26.2 MCHC 31.6 RDW 18.4 H Plt Count 290 Neut % (Auto) 93.9 H Lymph % (Auto) 4.6 L [place] % (Auto) 1.2 L Eos % (Auto) 0.0 L Baso % (Auto) 0.3 Neut # (Auto) 9600 H Lymph # (Auto) 500 L [place] # (Auto) 100 Eos # (Auto) 0 Baso # (Auto) 0 ABG Sample Site Left radial ABG pH 7.38 ABG pCO2 53.3 H ABG pO2 61 L ABG HCO3 32 H ABG Total CO2 31 H ABG O2 Saturation 90 L ABG Base Excess 5.1 H Jai Test Positive Sodium 135 L Potassium 3.3 L Chloride 99 Carbon Dioxide 30 BUN 22 H Creatinine 1.20 H Estimated GFR 52 L BUN/Creatinine Ratio 18.3 Glucose 334 H D Calcium 9.3 Total Bilirubin AST ALT Alkaline Phosphatase Total Creatine Kinase Troponin I NT-Pro-B Natriuret Pep Total Protein Albumin Globulin Albumin/Globulin Ratio Lipase Urine Color Urine Appearance Urine pH Ur Specific [place] Urine Protein Urine Glucose (UA) Urine Ketones Urine Occult Blood Urine Nitrate Urine Bilirubin Urine Urobilinogen Ur Leukocyte Esterase Urine RBC Urine WBC Ur Squamous Epith Cells Urine Bacteria Ur Culture Indicated? Vol Urine Centrifuged Nasal Screen MRSA (PCR) Not detected SARS-CoV-2 (PCR) Influenza A (RT-PCR) Influenza B (RT-PCR) RSV (PCR) Assessment & Plan Assessment & Plan narrative: 1. COPD exacerbation. Admit the patient to medical telemetry as inpatient. Continue IV Soluomedrol and duonebs. 2. Acute systolic CHF (ECHO 08/2022 indicate an EF of 25-30%). No clear signs of volume overload. Will monitor I/Os and daily weight. Will give additional lasix if needed. 3. UTI. Continue IVF Ceftriaxone 4. History of arrhythmia/afib on amiodarone and Eliquis. Resume home medication. 5. Non-Insulin dependent diabetes. Hold all home medication and monitor glucose with SQ insulin. 6. Morbid obesity. PLAN: Continue steroids, and nebulizers. Continue antibiotics and follow cultures. Diurese more aggressively with Lasix IV q.12 hours. Continue to use high-flow, wean FiO2 as able. DVT prophylaxis Eliquis. Status full code. Time-Based Coding :: 35 min spent with patient and on the chart (including review of chart, obtaining history, exam, reviewing outside data, placing orders, documenting exam and treatment plan, and counseling patient) on 1/4. Quality MIPS - Admit I confirm the patient?s Advance Care Plan is present, Code status is documented, Surrogate decision maker is in patient?s record [If Yes, STOP here]: Yes MIPS - Meds 'Current medications' to include all prescriptions, [id number] products, herbals, cannabis/cannabidiol products, and vitamin/mineral/dietary (nutritional) supplements. I have utilized all available resources to obtain, update, or review the patient?s current medications. [If Yes, STOP here]: Yes
[2024-05-10] MEDS: BUDESONIDE 0.5 MG/2 ML NEB INH ×2 (08:07→20:30)
[2024-05-10] MEDS: cefTRIAXone 1,000 MG in SODIUM CHLORIDE 0.9% 100 ML 200 MG IV (08:27)
[2024-05-10] MEDS: LORATADINE 10 MG TABLET PO (08:40)
[2024-05-10] MEDS: MULTIVITAMIN 1 TABLET 1 TAB PO (08:40)
[2024-05-10] MEDS: PANTOPRAZOLE DR 40 MG TABLET PO ×2 (08:40→20:42)
[2024-05-10] MEDS: ASPIRIN 81 MG CHEW TAB PO (08:40)
[2024-05-10] MEDS: METOPROLOL ER 25 MG TABLET PO (08:40)
[2024-05-10] MEDS: FUROSEMIDE 40 MG TABLET 80 MG PO (08:41)
[2024-05-10] MEDS: APIXABAN 5 MG TABLET PO ×2 (08:41→20:39)
[2024-05-10] MEDS: AMIODARONE 200 MG TABLET 100 MG PO (08:41)
[2024-05-10] MEDS: MEXILETINE 150 MG 150 EACH PO ×2 (10:55→20:42)
[2024-05-10] MEDS: POTASSIUM CHLORIDE 20 MEQ TAB 40 MEQ PO ×2 (12:02→17:01)
[2024-05-10] MEDS: ACETAMINOPHEN 325 MG TABLET 650 MG PO (12:50)
[2024-05-10] MEDS: ONDANSETRON 4 MG ODT PO (12:50)
[2024-05-10] MEDS: HYDROCODONE/ACET 5/325 TABLET 1 TAB PO (13:38)
[2024-05-10 13:49] LABS: Adenovirus Not Detected (Not Detect); B. parapertussis Not Detected (Not Detecte); Bordetella pertussis Not Detected (Not Detect); Chlamydophila pneumoniae Not Detected (Not Detect); Coronavirus 229E Not Detected (Not Detect); Coronavirus HKU1 Not Detected (Not Detect); Coronavirus NL 63 Not Detected (Not Detect); Coronavirus OC43 Not Detected (Not Detect); Human Metapneumovirus Not Detected (Not Detect); Human Rhinovirus/Enterovirus Not Detected (Not Detect); Influenza A Not Detected (Not Detect); Influenza B Not Detected (Not Detect); Mycoplasma pneumoniae Not Detected (Not Detect); Parainfluenza Virus 1 Not Detected (Not Detect); Parainfluenza Virus 2 Not Detected (Not Detect); Parainfluenza Virus 3 Not Detected (Not Detect); Parainfluenza Virus 4 Not Detected (Not Detect); Respiratory Syncytial Virus Not Detected (Not Detect); SARS- CoV-2 Not Detected (Not Detecte)
--- NOTE | 2024-05-10 16:26 | CM.DANOTE ---
B DCP Assessment Note pt is a 59yo F here with UTI/CHF/COPD exacerbation. home o2 of 3ltrs, currently on heated high flow. PCP Jolene [facility]rell[facility] and medicaid FLUE CLEANER reviewed EMR.per hospitalist in morning rounds, pt likely here for a few days. Per chart, pt lives in [place] with spouse/other local family. last admission as February 2024, pt discharged home with [facility]. No PT order so far this admission. FLUE CLEANER unable to meet with pt today due to triaging needs. P: anticipate return home with family support when medically stable. 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 Yes Advance Directives on File No History Provided By Patient,Medical Record Household Members spouse,none Type of transporation used prior to Relies on Others admit Needs Assistance With Meal Prep,Managing Medications ,Home Chores / Shopping DME Already Rented / Owned FWW / Walker Patient/Family Preference Home with Home Health Comment hx of [facility] Discharge Plan Home with Home Health Transportation Arrangement Likely spouse or family to provide transport Referrals Initiated Home Health Additional Comment potential need for resumption orders with [facility] If patient plan is home with home health Yes : Has signed face to face form been completed? Review Status In Process Please Provide Date Initial DC 05/10/24 Assessment Was Performed Next Review Type Continued Stay Review
--- NOTE | 2024-05-10 17:11 | PC.NURSE ---
Pt stable on HHF throughout shift. Pain controlled with PRN medications. Pt has personal cell phone at bedside.
[2024-05-10] MEDS: PROMETHAZINE 25 MG TABLET PO (17:35)
[2024-05-10] MEDS: FLUTICASONE 120 SPRAY/16 GM SPRAY.SUSP NASAL (20:41)
[2024-05-10] MEDS: MONTELUKAST 10 MG TABLET PO (20:42)
[2024-05-10] MEDS: diazePAM 5 MG TABLET PO (20:52)
[2024-05-10] MEDS: PROCHLORPERAZINE 10 MG/2 ML VIAL 5 MG IV (21:44)
[2024-05-10] MEDS: diphenhydrAMINE 50 MG/ML VIAL 25 MG IV (21:44)
[2024-05-11] VITALS (30 sets, daily range): BP systolic 95–106; BP diastolic 48–70; PULSE 63–97; RESP 19–53; TEMP 36–36.9; O2SAT 88–98
[2024-05-11] MEDS: HYDROCODONE/ACET 5/325 TABLET 1 TAB PO ×2 (03:21→19:57)
[2024-05-11] MEDS: ALBUTEROL/IPRATROPIUM 3 ML AMPUL INH ×5 (03:26→19:17)
[2024-05-11] MEDS: methylPREDNISolone 125 MG/2 ML VIAL 60 MG IV ×3 (06:03→20:01)
[2024-05-11] MEDS: BUDESONIDE 0.5 MG/2 ML NEB INH ×2 (07:50→19:17)
[2024-05-11] MEDS: MEXILETINE 150 MG 150 EACH PO ×2 (08:53→20:01)
[2024-05-11] MEDS: PANTOPRAZOLE DR 40 MG TABLET PO ×2 (08:54→20:01)
[2024-05-11] MEDS: FUROSEMIDE 40 MG TABLET 80 MG PO (08:54)
[2024-05-11] MEDS: ASPIRIN 81 MG CHEW TAB PO (08:54)
[2024-05-11] MEDS: glipiZIDE 5 MG TABLET PO (08:54)
[2024-05-11] MEDS: MULTIVITAMIN 1 TABLET 1 TAB PO (08:54)
[2024-05-11] MEDS: METOPROLOL ER 25 MG TABLET PO (08:54)
[2024-05-11] MEDS: AMIODARONE 200 MG TABLET 100 MG PO (08:56)
[2024-05-11] MEDS: APIXABAN 5 MG TABLET PO ×2 (08:56→20:01)
[2024-05-11] MEDS: FLUTICASONE 120 SPRAY/16 GM SPRAY.SUSP NASAL (08:57)
[2024-05-11] MEDS: cefTRIAXone 1,000 MG in SODIUM CHLORIDE 0.9% 100 ML 200 MG IV (08:57)
[2024-05-11] MEDS: LORATADINE 10 MG TABLET PO (08:57)
[2024-05-11] MEDS: ACETAMINOPHEN 325 MG TABLET 650 MG PO (09:04)
[2024-05-11] MEDS: ONDANSETRON 4 MG ODT PO (09:07)
[2024-05-11] MEDS: diazePAM 5 MG TABLET PO (09:35)
--- NOTE | 2024-05-11 14:25 | P.PN_ITS ---
Subjective Subjective Interval history: Hospital course: The patient was initially admitted with COPD and heart failure with acute hypoxic respiratory failure. She does have wheezing but also has evidence of mild volume overload. She was known systolic dysfunction with an EF of 30-35%. She has been progressively short of breath and has had a productive cough. She has been on antibiotics, had a negative respiratory PCR, and has been on oral Lasix since admission. She was receiving steroids and bronchodilators but remains on high-flow at 40% FiO2. She was morbidly obese. She was had marginal diuresis with oral Lasix. Subjective: She was ongoing productive cough which is notable for yellow to green phlegm. Some right-sided chest pain with deep breathing, and ongoing dyspnea and weakness. Exam Vital Signs (past 8 hours): - 05/11/24 07:00 05/11/24 07:50 05/11/24 07:53 Temperature Pulse Rate 78 63 Respiratory Rate 19 19 Blood Pressure 106/70 Pulse Oximetry 97 97 Oxygen Delivery Method Heated High Flow Heated High Flow Oxygen Flow Rate 40 Fraction of Inspired Oxygen 0.45 05/11/24 08:00 05/11/24 08:54 05/11/24 09:58 Temperature 97.5 F L Pulse Rate 97 H 78 66 Respiratory Rate 38 H Blood Pressure 99/48 L 99/48 L 95/60 Pulse Oximetry 92 Oxygen Delivery Method Oxygen Flow Rate 0 Fraction of Inspired Oxygen 46 05/11/24 11:19 05/11/24 14:06 05/11/24 14:08 Temperature Pulse Rate 73 79 Respiratory Rate 26 H 28 H Blood Pressure 96/53 L Pulse Oximetry 93 94 94 Oxygen Delivery Method Heated High Flow Heated High Flow Oxygen Flow Rate 40 Fraction of Inspired Oxygen 40 0.40 Fraction of Inspired Oxygen 0.40 SaO2/FiO2 Ratio 60170 Oxygen Delivery Method Heated High Flow Oxygen Flow Rate 40 Narrative Exam Narrative: NAD, alert and oriented. Fluent speech. Lungs are notable for focal inspiratory and expiratory wheezing in the right anterior upper chest, and some prolonged expiratory phase in the left and right chest. Normal rate and effort, she was comfortable on high-flow O2 FiO2 40%. Heart is regular, no murmur gallop or rub. Abdomen is soft, non distended. Extremities are with 1+ edema. Objective ECG Impression: Ventricular-paced rhythm Imaging Chest x-ray: My impression: Pulmonary edema Radiologist's impression: Radiologist's impression: FINDINGS: Surgical changes and devices: Left pacemaker/AICD. Lungs and pleura: No consolidation. Right upper lobe calcified granuloma. No pleural effusions or pneumothorax. Mediastinum: Mediastinal contours appear normal. Heart size is prominent. Bones and chest wall: No suspicious bony lesions. Overlying soft tissues appear unremarkable. IMPRESSION: No acute cardiopulmonary abnormality is seen. Labs 05/10/24 04:15 05/10/24 04:15 [facility] Medical History Cervical spondylosis Neck pain Cervical radiculopathy CAD (coronary artery disease) Congestive heart failure COPD (chronic obstructive pulmonary disease) Surgical History AICD (automatic cardioverter/defibrillator) present H/O heart artery stent Social History household members: spouse and none lives independently: Yes Smoking Status: Former smoker alcohol intake: current Assessment & Plan Assessment & Plan narrative: Assessment & Plan narrative: 1. COPD exacerbation. Present on admission and active. 2. Acute on chronic hypoxic respiratory failure (3 L O2 @ home). Present on admission and active. 3. Hypokalemia, new and active. 4. Acute systolic CHF (ECHO 08/2022 indicate an EF of 25-30%). No clear signs of volume overload. Will monitor I/Os and daily weight. Will give additional lasix if needed. 5. UTI. Continue IVF Ceftriaxone 6. History of arrhythmia/afib on amiodarone and Eliquis. Resume home medication. 7. Non-Insulin dependent diabetes. Hold all home medication and monitor glucose with SQ insulin. 8. Morbid obesity (BMI 43), present on admission and active.. PLAN: Continue steroids, and nebulizers. Continue antibiotics and follow cultures. Diurese more aggressively with Lasix IV 80 mg 12 hours. Continue to use high-flow, wean FiO2 as able. Repeat chest x-ray given focal wheezing which was pronounced in her right upper chest. Replace potassium GENET: Likely May 13 at the earliest, pending improvement of her breathing and ability to wean back down towards her 3 L of chronic oxygen. DVT prophylaxis Eliquis. Status full code. Time-Based Coding :: [TOTAL MINUTES] spent with patient and on the chart (including review of chart, obtaining history, exam, reviewing outside data, placing orders, documenting exam and treatment plan, and counseling patient) on [DATE].
--- NOTE | 2024-05-11 14:25 | DI.RAD.S_ITS ---
PROCEDURE: XR CHEST 1V INDICATIONS: dyspnea TECHNIQUE: One view of the chest was acquired. COMPARISON: [facility], CR, XR CHEST 1V, 05/09/2024, 17:53. [facility], CR, XR CHEST 1V, 02/21/2024, 19:08. FINDINGS: Surgical changes and devices: Left chest wall pulse generator with dual-chamber defibrillator biventricular leads. Lungs and pleura: Low lung volumes. There is a focal opacity in the right infrahilar region. No pleural effusion. Mediastinum: Cardiomegaly is unchanged Bones and chest wall: Degenerative findings. IMPRESSION: Low lung volumes. Suspect opacity right infrahilar region. Consider future imaging surveillance to assess for resolution. Cardiomegaly. Dictated by: Simone Stoner M.D. on 05/11/2024 at 14:21 Approved by: Simone Stoner M.D. on 05/11/2024 at 14:22
[2024-05-11] MEDS: FUROSEMIDE 80 MG in SODIUM CHLORIDE 0.9% 50 ML 116 MG IV (15:26)
--- NOTE | 2024-05-11 18:31 | PC.NURSE ---
Pt stable throughout shift. Ashraf catheter removed and pt able to void. Pt up to chair x1 assist. Pain and anxiety controlled with PRN medications.
[2024-05-11] MEDS: diphenhydrAMINE 50 MG/ML VIAL 25 MG IV (19:54)
[2024-05-11] MEDS: PROCHLORPERAZINE 10 MG/2 ML VIAL 5 MG IV (19:56)
[2024-05-11] MEDS: MONTELUKAST 10 MG TABLET PO (20:01)
[2024-05-12] VITALS (92 sets, daily range): BP systolic 99–114; BP diastolic 48–57; PULSE 58–116; RESP 17–40; TEMP 36.2–36.6; O2SAT 88–98
[2024-05-12] MEDS: ALBUTEROL/IPRATROPIUM 3 ML AMPUL INH ×4 (03:47→19:19)
[2024-05-12] MEDS: HYDROCODONE/ACET 5/325 TABLET 1 TAB PO ×3 (03:47→20:19)
[2024-05-12] MEDS: PROCHLORPERAZINE 10 MG/2 ML VIAL 5 MG IV ×3 (03:47→20:18)
[2024-05-12] MEDS: methylPREDNISolone 125 MG/2 ML VIAL 60 MG IV ×3 (04:01→20:18)
[2024-05-12] MEDS: BUDESONIDE 0.5 MG/2 ML NEB INH ×2 (07:37→19:19)
[2024-05-12] MEDS: ONDANSETRON 4 MG ODT PO ×2 (08:25→18:56)
[2024-05-12] MEDS: PANTOPRAZOLE DR 40 MG TABLET PO ×2 (08:25→20:19)
[2024-05-12] MEDS: cefTRIAXone 1,000 MG in SODIUM CHLORIDE 0.9% 100 ML 200 MG IV (08:25)
[2024-05-12] MEDS: ASPIRIN 81 MG CHEW TAB PO (09:37)
[2024-05-12] MEDS: MULTIVITAMIN 1 TABLET 1 TAB PO (09:38)
[2024-05-12] MEDS: MEXILETINE 150 MG 150 EACH PO ×2 (09:38→20:19)
[2024-05-12] MEDS: FLUTICASONE 120 SPRAY/16 GM SPRAY.SUSP NASAL (09:38)
[2024-05-12] MEDS: LORATADINE 10 MG TABLET PO (09:38)
[2024-05-12] MEDS: APIXABAN 5 MG TABLET PO ×2 (09:39→20:18)
[2024-05-12] MEDS: METOPROLOL ER 25 MG TABLET PO (09:39)
[2024-05-12] MEDS: AMIODARONE 200 MG TABLET 100 MG PO (09:39)
--- NOTE | 2024-05-12 14:22 | CM.DPNOTE ---
DCP Note CUSTOMER CONTACT SPECIALIST reviewed EMR Per chart review, pt remains on heated high flow throughout the day. Per RN, pt appears at baseline limited mobility. no new/obvious DCP needs from RN identified at this time. CUSTOMER CONTACT SPECIALIST spoke with receptionist/telephone operator at [facility], report they will have referrals return call if pt still active with [facility]. Unclear if pt will need new HH orders at [facility] if pt at baseline mobility. P: GENET unknown. home when medically stable/pt back to home O2 of 3ltrs. Anticipate transport with family. CM team will continue to follow as needed GEORGE Porter
[2024-05-12] MEDS: FUROSEMIDE 80 MG in SODIUM CHLORIDE 0.9% 50 ML 116 MG IV (16:00)
--- NOTE | 2024-05-12 18:58 | PC.NURSE ---
Day Shift Note Patient on heated HFNC 40L and 40% FiO2, RT weaning. SpO2 94%. SBA to chair and to BSC as needed. Small amount emesis this morning after breakfast, medicated with zofran per emar. Nausea reported at lunch and medicated with compazine. Emesis of 700 ml this evening post dinner, medicated with MD yolanda aware. Pt continues to eat and drink consistently in room. Discussed eating meals slower and eating less at one time, reinforcement needed. Call light within reach, using appropriately to make needs known.
--- NOTE | 2024-05-12 19:15 | P.PN_ITS ---
Subjective Subjective Interval history: Hospital course: The patient was initially admitted with COPD and heart failure with acute hypoxic respiratory failure. She does have wheezing but also has evidence of mild volume overload. She was known systolic dysfunction with an EF of 30-35%. She has been progressively short of breath and has had a productive cough. She has been on antibiotics, had a negative respiratory PCR, and has been on oral Lasix since admission. She was receiving steroids and bronchodilators but remains on high-flow at 40% FiO2. She was morbidly obese. She was had marginal diuresis with oral Lasix. Subjective: She was ongoing productive cough which is notable for yellow to green phlegm. Some right-sided chest pain with deep breathing, and ongoing dyspnea and weakness. She remains on high flow nasal cannula at 40% today. She ate a lot of food including irish fries and had emesis this evening. Exam Vital Signs (past 8 hours): - 05/12/24 11:30 05/12/24 11:45 05/12/24 11:46 Temperature Pulse Rate 65 66 66 Respiratory Rate 25 H 21 22 Blood Pressure Pulse Oximetry 97 95 94 Oxygen Delivery Method Oxygen Flow Rate Fraction of Inspired Oxygen 05/12/24 11:49 05/12/24 12:00 05/12/24 12:15 Temperature Pulse Rate 66 64 64 Respiratory Rate 22 20 24 Blood Pressure Pulse Oximetry 94 94 95 Oxygen Delivery Method Heated High Flow Oxygen Flow Rate 40 Fraction of Inspired Oxygen 45 05/12/24 12:30 05/12/24 12:45 05/12/24 13:00 Temperature Pulse Rate 70 71 69 Respiratory Rate 32 H 33 H 26 H Blood Pressure Pulse Oximetry 95 96 94 Oxygen Delivery Method Oxygen Flow Rate Fraction of Inspired Oxygen 05/12/24 13:04 05/12/24 13:14 05/12/24 13:14 Temperature Pulse Rate 66 66 Respiratory Rate 26 H Blood Pressure 101/51 L 101/52 L Pulse Oximetry 95 Oxygen Delivery Method Oxygen Flow Rate Fraction of Inspired Oxygen 05/12/24 13:15 05/12/24 13:30 05/12/24 13:45 Temperature Pulse Rate 65 64 65 Respiratory Rate 24 27 H 23 Blood Pressure Pulse Oximetry 97 94 96 Oxygen Delivery Method Oxygen Flow Rate Fraction of Inspired Oxygen 05/12/24 14:00 05/12/24 14:00 05/12/24 14:15 Temperature 97.9 F Pulse Rate 66 67 Respiratory Rate 24 19 Blood Pressure Pulse Oximetry 98 94 Oxygen Delivery Method Oxygen Flow Rate Fraction of Inspired Oxygen 05/12/24 14:30 05/12/24 14:45 05/12/24 15:00 Temperature Pulse Rate 61 68 65 Respiratory Rate 19 28 H 23 Blood Pressure Pulse Oximetry 94 94 94 Oxygen Delivery Method Oxygen Flow Rate Fraction of Inspired Oxygen 05/12/24 15:15 05/12/24 15:30 05/12/24 15:45 Temperature Pulse Rate 68 69 69 Respiratory Rate 38 H 30 H 28 H Blood Pressure Pulse Oximetry 96 95 94 Oxygen Delivery Method Oxygen Flow Rate Fraction of Inspired Oxygen 05/12/24 15:51 05/12/24 16:00 05/12/24 16:15 Temperature Pulse Rate 68 67 65 Respiratory Rate 22 36 H 19 Blood Pressure Pulse Oximetry 94 92 91 Oxygen Delivery Method Oxygen Flow Rate Fraction of Inspired Oxygen 05/12/24 16:30 05/12/24 16:45 05/12/24 17:00 Temperature Pulse Rate 79 69 105 H Respiratory Rate 31 H 26 H 29 H Blood Pressure Pulse Oximetry 94 94 92 Oxygen Delivery Method Oxygen Flow Rate Fraction of Inspired Oxygen 05/12/24 17:15 05/12/24 17:30 05/12/24 17:33 Temperature Pulse Rate 71 58 L 67 Respiratory Rate 36 H 22 Blood Pressure Pulse Oximetry 94 98 95 Oxygen Delivery Method Oxygen Flow Rate Fraction of Inspired Oxygen 05/12/24 17:33 05/12/24 17:45 05/12/24 18:00 Temperature Pulse Rate 72 70 Respiratory Rate 24 18 Blood Pressure 106/48 L Pulse Oximetry 91 91 Oxygen Delivery Method Oxygen Flow Rate Fraction of Inspired Oxygen Fraction of Inspired Oxygen 45 SaO2/FiO2 Ratio 208 Oxygen Delivery Method Heated High Flow Oxygen Flow Rate 40 Narrative Exam Narrative: NAD, alert and oriented. Fluent speech. Lungs are notable for focal inspiratory and expiratory wheezing in the right anterior upper chest, and some prolonged expiratory phase in the left and right chest. Normal rate and effort, she was comfortable on high-flow O2 FiO2 40%. Heart is regular, no murmur gallop or rub. Abdomen is soft, non distended. Extremities are with none to trace edema. Objective Labs 05/10/24 04:15 05/10/24 04:15 [facility] Medical History Cervical spondylosis Neck pain Cervical radiculopathy CAD (coronary artery disease) Congestive heart failure COPD (chronic obstructive pulmonary disease) Surgical History AICD (automatic cardioverter/defibrillator) present H/O heart artery stent Social History household members: spouse and none lives independently: Yes Smoking Status: Former smoker alcohol intake: current Assessment & Plan Assessment & Plan narrative: Assessment & Plan narrative: 1. COPD exacerbation. Present on admission and active. 2. Acute on chronic hypoxic respiratory failure (3 L O2 @ home). Present on admission and active. 3. Hypokalemia, new and active. 4. Acute systolic CHF (ECHO 08/2022 indicate an EF of 25-30%). No clear signs of volume overload. Will monitor I/Os and daily weight. Will give additional lasix if needed. 5. UTI. Continue IVF Ceftriaxone 6. History of arrhythmia/afib on amiodarone and Eliquis. Resume home medication. 7. Non-Insulin dependent diabetes. Now on home Jardiance, continue sliding scale. 8. Morbid obesity (BMI 43), present on admission and active.. PLAN: Continue steroids, and nebulizers. Continue antibiotics and follow cultures. Diurese more aggressively with Lasix IV 80 mg 12 hours. Was net negative 4L per intake and output yesterday, monitor labs closely, ordered BMP for tomorrow while diuresing. Continue to use high-flow, wean FiO2 as able and eventually back to home nasal cannula. GENET: Likely a few more days at least here in the hospital, pending improvement of her breathing and ability to wean back down towards her 3 L of chronic oxygen. Consider PT/OT. DVT prophylaxis Eliquis. Status full code. Time-Based Coding :: [TOTAL MINUTES] spent with patient and on the chart (including review of chart, obtaining history, exam, reviewing outside data, placing orders, documenting exam and treatment plan, and counseling patient) on [DATE].
[2024-05-12] MEDS: diphenhydrAMINE 50 MG/ML VIAL 25 MG IV (20:18)
[2024-05-12] MEDS: MONTELUKAST 10 MG TABLET PO (20:18)
[2024-05-13] VITALS (71 sets, daily range): BP systolic 91–160; BP diastolic 44–94; PULSE 60–145; RESP 16–51; TEMP 35.7–36.4; O2SAT 65–98
[2024-05-13] MEDS: methylPREDNISolone 125 MG/2 ML VIAL 60 MG IV ×3 (04:45→21:04)
[2024-05-13] MEDS: FUROSEMIDE 80 MG in SODIUM CHLORIDE 0.9% 50 ML 116 MG IV ×2 (04:45→16:53)
[2024-05-13] MEDS: HYDROCODONE/ACET 5/325 TABLET 1 TAB PO ×2 (05:26→14:21)
[2024-05-13 06:14] LABS: Add Manual Diff / Slide Review NO; Basophils Absolute Auto 0 /uL (0-100); Basophils Percent Auto 0.3 % (0-2); Eosinophils Absolute Auto 0 /uL (0-450); Eosinophils Percent Auto 0.2 % (2-4); Hematocrit 40.8 % (36-46); Hemoglobin 12.9 g/dL (12.0-16.0); Lymphocytes Absolute Auto 700 /uL (1100-4500); Lymphocytes Percent Auto 4.7 % (25-40); Mean Corpuscular HGB Conc 31.5 % (30-36); Mean Corpuscular Volume 82.6 fL (80-100); Monocytes Absolute Auto 500 /uL (0-900); Monocytes Percent Auto 3.1 % (3-14); Neutrophils Absolute Auto 13600 /uL (1500-7000); Neutrophils Percent Auto 91.7 % (50-75); Platelet Count 361 X10^3/uL (150-400); Red Blood Cell Count 4.95 X10^6/uL (4.0-5.2); Red Cell Distribution Width 18.2 % (11.6-14.8); White Blood Cell Count 14.8 X10^3/uL (4.5-11.0)
[2024-05-13 06:34] LABS: Alanine Aminotransferase 20 IU/L (<35); Albumin 3.5 g/dL (3.5-5.0); Albumin Globulin Ratio 1.2 (1.0-2.8); Alkaline Phosphatase 137 U/L (38-126); Aspartate Aminotransferase 19 IU/L (14-36); BUN Creatinine Ratio 37.7 (6-22); Bilirubin Total 0.2 mg/dL (0.2-1.3); Blood Urea Nitrogen 43 mg/dL (7-17); Carbon Dioxide 38 mmol/L (22-32); Chloride 94 mmol/L (98-107); Estimated Glomerular Filt Rate 55 mL/min (>60); Glucose 305 mg/dL (80-110); HEMOLYSIS < 15 (0-50); Magnesium 2.5 mg/dL (1.6-2.3); Potassium 4.6 mmol/L (3.4-5.1); Sodium 132 mmol/L (137-145); Total Protein 6.5 g/dL (6.3-8.2)
[2024-05-13] MEDS: ALBUTEROL/IPRATROPIUM 3 ML AMPUL INH ×4 (07:12→19:12)
[2024-05-13] MEDS: BUDESONIDE 0.5 MG/2 ML NEB INH ×2 (07:12→19:12)
[2024-05-13] MEDS: MEXILETINE 150 MG 150 EACH PO ×2 (09:06→21:04)
[2024-05-13] MEDS: METOPROLOL ER 25 MG TABLET PO (09:07)
[2024-05-13] MEDS: cefTRIAXone 1,000 MG in SODIUM CHLORIDE 0.9% 100 ML 200 MG IV (09:07)
[2024-05-13] MEDS: AMIODARONE 200 MG TABLET 100 MG PO (09:07)
[2024-05-13] MEDS: APIXABAN 5 MG TABLET PO ×2 (09:08→21:04)
[2024-05-13] MEDS: LORATADINE 10 MG TABLET PO (09:08)
[2024-05-13] MEDS: ASPIRIN 81 MG CHEW TAB PO (09:08)
[2024-05-13] MEDS: MULTIVITAMIN 1 TABLET 1 TAB PO (09:08)
[2024-05-13] MEDS: PANTOPRAZOLE DR 40 MG TABLET PO ×2 (09:08→21:04)
[2024-05-13] MEDS: FLUTICASONE 120 SPRAY/16 GM SPRAY.SUSP NASAL ×2 (09:10→21:04)
[2024-05-13] MEDS: diazePAM 5 MG TABLET PO (15:19)
--- NOTE | 2024-05-13 16:28 | PM.PN.1 ---
Subjective Subjective Interval history: Hospital course: The patient was initially admitted with COPD and heart failure with acute hypoxic respiratory failure. She does have wheezing but also has evidence of mild volume overload. She was known systolic dysfunction with an EF of 30-35%. She has been progressively short of breath and has had a productive cough. She has been on antibiotics, had a negative respiratory PCR, and has been on oral Lasix since admission. She was receiving steroids and bronchodilators but remains on high-flow at 40% FiO2. She was morbidly obese. She was had marginal diuresis with oral Lasix. Subjective: She remains on high flow nasal cannula at 40% today. Essentially unchanged. Exam Vital Signs (past 8 hours): - 05/13/24 08:30 05/13/24 08:45 05/13/24 09:00 Pulse Rate 69 75 70 Respiratory Rate 24 36 H 30 H Blood Pressure Pulse Oximetry 95 94 95 Oxygen Delivery Method Oxygen Flow Rate Fraction of Inspired Oxygen 05/13/24 09:10 05/13/24 09:10 05/13/24 09:15 Pulse Rate 68 69 Respiratory Rate 24 29 H Blood Pressure 96/46 L Pulse Oximetry 95 93 Oxygen Delivery Method Oxygen Flow Rate Fraction of Inspired Oxygen 05/13/24 09:30 05/13/24 09:45 05/13/24 10:00 Pulse Rate 70 78 68 Respiratory Rate 26 H 25 H 31 H Blood Pressure Pulse Oximetry 96 95 94 Oxygen Delivery Method Oxygen Flow Rate Fraction of Inspired Oxygen 05/13/24 10:35 05/13/24 10:35 05/13/24 12:00 Pulse Rate 73 70 Respiratory Rate 20 24 Blood Pressure 96/46 L Pulse Oximetry 97 93 95 Oxygen Delivery Method Heated High Flow Oxygen Flow Rate 40 40 Fraction of Inspired Oxygen 45 05/13/24 13:00 05/13/24 14:00 05/13/24 14:12 Pulse Rate 71 76 Respiratory Rate 25 H 28 H 20 Blood Pressure Pulse Oximetry 96 94 93 Oxygen Delivery Method Oxygen Flow Rate 40 40 Fraction of Inspired Oxygen 05/13/24 14:12 05/13/24 14:29 05/13/24 14:29 Pulse Rate 64 Respiratory Rate 29 H Blood Pressure 101/52 L Pulse Oximetry 93 94 Oxygen Delivery Method Heated High Flow Oxygen Flow Rate 40 40 Fraction of Inspired Oxygen 45 Fraction of Inspired Oxygen 45 SaO2/FiO2 Ratio 206 Oxygen Delivery Method Heated High Flow Oxygen Flow Rate 40 Narrative Exam Narrative: NAD, alert and oriented. Fluent speech. Lungs are notable for focal inspiratory and expiratory wheezing in the right anterior upper chest, and some prolonged expiratory phase in the left and right chest. Normal rate and effort, she was comfortable on high-flow O2 FiO2 40%. Heart is regular, no murmur gallop or rub. Abdomen is soft, non distended. Extremities are with none to trace edema. Objective Labs 05/13/24 05:47 05/13/24 05:47 Labs: Laboratory Results - last 24 hr 05/13/24 05:47 WBC 14.8 H RBC 4.95 Hgb 12.9 Hct 40.8 MCV 82.6 MCH 26.0 MCHC 31.5 RDW 18.2 H Plt Count 361 Neut % (Auto) 91.7 H Lymph % (Auto) 4.7 L Mccormick % (Auto) 3.1 Eos % (Auto) 0.2 L Baso % (Auto) 0.3 Neut # (Auto) 48928 H Lymph # (Auto) 700 L Mccormick # (Auto) 500 Eos # (Auto) 0 Baso # (Auto) 0 Sodium 132 L Potassium 4.6 D Chloride 94 L Carbon Dioxide 38 H BUN 43 H Creatinine 1.14 H Estimated GFR 55 L BUN/Creatinine Ratio 37.7 H Glucose 305 H Calcium 9.0 Magnesium 2.5 H Total Bilirubin 0.2 AST 19 ALT 20 Alkaline Phosphatase 137 H Total Protein 6.5 Albumin 3.5 Globulin 3.0 Albumin/Globulin Ratio 1.2 PFSH Medical History Cervical spondylosis Neck pain Cervical radiculopathy CAD (coronary artery disease) Congestive heart failure COPD (chronic obstructive pulmonary disease) Surgical History AICD (automatic cardioverter/defibrillator) present H/O heart artery stent Social History household members: spouse and none lives independently: Yes Smoking Status: Former smoker alcohol intake: current Assessment & Plan Assessment & Plan narrative: Assessment & Plan narrative: 1. COPD exacerbation. Present on admission and active. 2. Acute on chronic hypoxic respiratory failure (3 L O2 @ home). Present on admission and active. 3. Hypokalemia, new and active. 4. Acute systolic CHF (ECHO 08/2022 indicate an EF of 25-30%). No clear signs of volume overload. Will monitor I/Os and daily weight. Will give additional lasix if needed. 5. UTI. Continue IVF Ceftriaxone 6. History of arrhythmia/afib on amiodarone and Eliquis. Resume home medication. 7. Non-Insulin dependent diabetes. Now on home Jardiance, continue sliding scale. 8. Morbid obesity (BMI 43), present on admission and active.. PLAN: Continue steroids, and nebulizers. Continue antibiotics and follow cultures. Diurese more aggressively with Lasix IV 80 mg 12 hours. Was net negative 6L per intake and output yesterday, monitor labs closely, ordered BMP for tomorrow while diuresing. Continue to use high-flow, wean FiO2 as able and eventually back to home nasal cannula. GENET: Likely a few more days at least here in the hospital, pending improvement of her breathing and ability to wean back down towards her 3 L of chronic oxygen. Consider PT/OT. DVT prophylaxis Eliquis. Status full code. Time-Based Coding :: [TOTAL MINUTES] spent with patient and on the chart (including review of chart, obtaining history, exam, reviewing outside data, placing orders, documenting exam and treatment plan, and counseling patient) on [DATE].
[2024-05-13] MEDS: CODEINE/GUAIFENESIN LIQUID 5ML UDC 10 ML PO (16:53)
[2024-05-13] MEDS: NYSTATIN POWDER 15GM 1 APPLIC TOP (21:03)
[2024-05-13] MEDS: MONTELUKAST 10 MG TABLET PO (21:04)
[2024-05-14] VITALS (49 sets, daily range): BP systolic 97–121; BP diastolic 49–81; PULSE 55–96; RESP 6–47; TEMP 35.6–36.1; O2SAT 87–98
[2024-05-14] MEDS: ALBUTEROL/IPRATROPIUM 3 ML AMPUL INH ×5 (04:23→22:35)
[2024-05-14] MEDS: diphenhydrAMINE 50 MG/ML VIAL 25 MG IV (04:23)
[2024-05-14] MEDS: methylPREDNISolone 125 MG/2 ML VIAL 60 MG IV ×2 (04:23→12:22)
--- NOTE | 2024-05-14 05:41 | PC.NURSE ---
pt awake most of night, mild nausea x1, benadryl with effect, continues with HHF, SOBOE with wheezes, prn breathing treatments, call plunkett within reach, continue to monitor
[2024-05-14 06:31] LABS: Alanine Aminotransferase 19 IU/L (<35); Albumin 3.5 g/dL (3.5-5.0); Albumin Globulin Ratio 1.3 (1.0-2.8); Alkaline Phosphatase 131 U/L (38-126); Aspartate Aminotransferase 20 IU/L (14-36); BUN Creatinine Ratio 47.5 (6-22); Bilirubin Total 0.2 mg/dL (0.2-1.3); Blood Urea Nitrogen 47 mg/dL (7-17); Calcium 8.9 mg/dL (8.4-10.2); Chloride 93 mmol/L (98-107); Estimated Glomerular Filt Rate > 60 mL/min (>60); Globulin 2.6 g/dL (1.7-4.1); Glucose 301 mg/dL (80-110); Magnesium 2.7 mg/dL (1.6-2.3); Potassium 4.8 mmol/L (3.4-5.1); Sodium 134 mmol/L (137-145); Total Protein 6.1 g/dL (6.3-8.2)
[2024-05-14 06:37] LABS: Carbon Dioxide 35 mmol/L (22-32); HEMOLYSIS 20 (0-50)
[2024-05-14 06:40] LABS: Hematocrit 40.1 % (36-46); Hemoglobin 12.9 g/dL (12.0-16.0); Mean Corpuscular HGB Conc 32.3 % (30-36); Mean Corpuscular Hemoglobin 26.6 PG (26-34); Mean Corpuscular Volume 82.3 fL (80-100); Platelet Count 356 X10^3/uL (150-400); Red Blood Cell Count 4.87 X10^6/uL (4.0-5.2); Red Cell Distribution Width 18.2 % (11.6-14.8); White Blood Cell Count 14.6 X10^3/uL (4.5-11.0)
[2024-05-14 06:46] LABS: Add Manual Diff / Slide Review YES
[2024-05-14] MEDS: FUROSEMIDE 80 MG in SODIUM CHLORIDE 0.9% 50 ML 116 MG IV ×2 (06:51→16:14)
[2024-05-14] MEDS: HYDROCODONE/ACET 5/325 TABLET 1 TAB PO ×2 (06:57→12:22)
[2024-05-14 07:08] LABS: Anisocytosis 1+; Neutrophils Absolute Manual 12410 /uL (3000-5900); Total Cells Counted 100
[2024-05-14] MEDS: BUDESONIDE 0.5 MG/2 ML NEB INH ×2 (07:53→19:30)
[2024-05-14] MEDS: MEXILETINE 150 MG 150 EACH PO ×2 (08:45→20:30)
[2024-05-14] MEDS: MULTIVITAMIN 1 TABLET 1 TAB PO (08:46)
[2024-05-14] MEDS: METOPROLOL ER 25 MG TABLET PO (08:46)
[2024-05-14] MEDS: glipiZIDE 5 MG TABLET PO (08:46)
[2024-05-14] MEDS: ASPIRIN 81 MG CHEW TAB PO (08:47)
[2024-05-14] MEDS: APIXABAN 5 MG TABLET PO ×2 (08:47→20:12)
[2024-05-14] MEDS: FLUTICASONE 120 SPRAY/16 GM SPRAY.SUSP NASAL ×2 (08:47→20:19)
[2024-05-14] MEDS: cefTRIAXone 1,000 MG in SODIUM CHLORIDE 0.9% 100 ML 200 MG IV (08:47)
[2024-05-14] MEDS: AMIODARONE 200 MG TABLET 100 MG PO (08:47)
[2024-05-14] MEDS: LORATADINE 10 MG TABLET PO (08:47)
[2024-05-14] MEDS: NYSTATIN POWDER 15GM 1 APPLIC TOP ×2 (08:48→20:32)
[2024-05-14] MEDS: PANTOPRAZOLE DR 40 MG TABLET PO ×2 (08:52→20:13)
[2024-05-14] MEDS: ACETAMINOPHEN 325 MG TABLET 650 MG PO (13:29)
[2024-05-14] MEDS: ONDANSETRON 4 MG ODT PO (13:29)
[2024-05-14] MEDS: HYDROMORPHONE 2 MG TABLET 4 MG PO ×2 (16:14→20:13)
--- NOTE | 2024-05-14 17:06 | PC.NURSE ---
Pt tolerating wean to oxymask . Pt up to chair and BSC with SBA. PRN pain medication order changed by physician, pain controlled with PRN medications.
--- NOTE | 2024-05-14 17:33 | PM.PN.1 ---
Subjective Subjective Interval history: Hospital course: The patient was initially admitted with COPD and heart failure with acute hypoxic respiratory failure. She does have wheezing but also has evidence of mild volume overload. She was known systolic dysfunction with an EF of 30-35%. She has been progressively short of breath and has had a productive cough. She has been on antibiotics, had a negative respiratory PCR, and has been on oral Lasix since admission. She was receiving steroids and bronchodilators but remains on high-flow at 40% FiO2. She was morbidly obese. She was had marginal diuresis with oral Lasix. Subjective: Tearful today, in chronic pain. Reports hydromorphone/tylenol does not help. Wishes to try something different. She is off of high flow O2 this afternoon finally! Exam Vital Signs (past 8 hours): - 05/14/24 10:32 05/14/24 13:32 05/14/24 13:33 Temperature 96.7 F L Pulse Rate 56 L Respiratory Rate Blood Pressure 113/56 L Pulse Oximetry 95 Oxygen Delivery Method Oxygen Flow Rate Fraction of Inspired Oxygen 05/14/24 13:43 05/14/24 13:44 Temperature 96.9 F L Pulse Rate 71 Respiratory Rate 24 36 H Blood Pressure Pulse Oximetry 95 Oxygen Delivery Method Heated High Flow Oxygen Flow Rate 20 Fraction of Inspired Oxygen 0.45 Fraction of Inspired Oxygen 0.45 SaO2/FiO2 Ratio 48090 Oxygen Delivery Method Heated High Flow Oxygen Flow Rate 20 Narrative Exam Narrative: NAD, alert and oriented. Fluent speech. Tearful today Lungs are notable for focal inspiratory and expiratory wheezing in the right anterior upper chest, and some prolonged expiratory phase in the left and right chest. Normal rate and effort, she was comfortable on high-flow O2 FiO2 40%. Heart is regular, no murmur gallop or rub. Abdomen is soft, non distended. Extremities are with none to trace edema. Objective Labs 05/14/24 05:48 05/14/24 05:48 Labs: Laboratory Results - last 24 hr 05/14/24 05:48 WBC 14.6 H RBC 4.87 Hgb 12.9 Hct 40.1 MCV 82.3 MCH 26.6 MCHC 32.3 RDW 18.2 H Plt Count 356 Neut % (Auto) Not Reportable Lymph % (Auto) Not Reportable [place] % (Auto) Not Reportable Eos % (Auto) Not Reportable Baso % (Auto) Not Reportable Lymph # (Auto) Not Reportable [place] # (Auto) Not Reportable Baso # (Auto) Not Reportable Total Counted 100 Seg Neutrophils % 83.0 H Band Neutrophils % 2.0 L Lymphocytes % (Manual) 9.0 L Monocytes % (Manual) 6.0 Neutrophils # (Manual) 21382 H RBC Morphology See below Anisocytosis 1+ H Sodium 134 L Potassium 4.8 Chloride 93 L Carbon Dioxide 35 H BUN 47 H Creatinine 0.99 Estimated GFR > 60 BUN/Creatinine Ratio 47.5 H Glucose 301 H Calcium 8.9 Magnesium 2.7 H Total Bilirubin 0.2 AST 20 ALT 19 Alkaline Phosphatase 131 H Total Protein 6.1 L Albumin 3.5 Globulin 2.6 Albumin/Globulin Ratio 1.3 PFSH Medical History Cervical spondylosis Neck pain Cervical radiculopathy CAD (coronary artery disease) Congestive heart failure COPD (chronic obstructive pulmonary disease) Surgical History AICD (automatic cardioverter/defibrillator) present H/O heart artery stent Social History household members: spouse and none lives independently: Yes Smoking Status: Former smoker alcohol intake: current Assessment & Plan Assessment & Plan narrative: Assessment & Plan narrative: 1. COPD exacerbation. Present on admission and active. 2. Acute on chronic hypoxic respiratory failure (3 L O2 @ home). Present on admission and active. 3. Hypokalemia, new and active. 4. Acute systolic CHF (ECHO 08/2022 indicate an EF of 25-30%). No clear signs of volume overload. Will monitor I/Os and daily weight. Will give additional lasix if needed. 5. UTI. Continue IVF Ceftriaxone 6. History of arrhythmia/afib on amiodarone and Eliquis. Resume home medication. 7. Non-Insulin dependent diabetes. Now on home Jardiance, continue sliding scale. 8. Morbid obesity (BMI 43), present on admission and active.. PLAN: Continue steroids, and nebulizers. Will change to oral prednisone tomorrow. Continue antibiotics and follow cultures. Diurese more aggressively with Lasix IV 80 mg 12 hours. onitor labs closely, ordered BMP for tomorrow while diuresing. Will likely reduce tomorrow to home diuretic therapy now that she is off high flow this afternoon. Wean O2 as tolerated, now off high flow. for chronic pain, will trial alternative opiate with PO dilaudid, add gabapentin instead of hydrocodone/acetaminophen. GENET: Likely a few more days at least here in the hospital, pending improvement of her breathing and ability to wean back down towards her 3 L of chronic oxygen. Consider PT/OT. DVT prophylaxis Eliquis. Status full code. Time-Based Coding :: [TOTAL MINUTES] spent with patient and on the chart (including review of chart, obtaining history, exam, reviewing outside data, placing orders, documenting exam and treatment plan, and counseling patient) on [DATE].
[2024-05-14] MEDS: GABAPENTIN 300 MG CAPSULE PO (20:12)
[2024-05-14] MEDS: MONTELUKAST 10 MG TABLET PO (20:12)
[2024-05-15] VITALS (48 sets, daily range): BP systolic 98–110; BP diastolic 50–65; PULSE 53–69; RESP 20–23; TEMP 35.9–36.4; O2SAT 79–100
[2024-05-15] MEDS: HYDROMORPHONE 2 MG TABLET 4 MG PO ×3 (00:07→10:22)
[2024-05-15] MEDS: diazePAM 5 MG TABLET PO ×2 (00:07→09:54)
[2024-05-15 04:47] LABS: Alanine Aminotransferase 22 IU/L (<35); Albumin 3.5 g/dL (3.5-5.0); Albumin Globulin Ratio 1.3 (1.0-2.8); Alkaline Phosphatase 142 U/L (38-126); Aspartate Aminotransferase 19 IU/L (14-36); Bilirubin Total 0.3 mg/dL (0.2-1.3); Blood Urea Nitrogen 46 mg/dL (7-17); Chloride 90 mmol/L (98-107); Estimated Glomerular Filt Rate 54 mL/min (>60); Globulin 2.7 g/dL (1.7-4.1); Glucose 335 mg/dL (80-110); HEMOLYSIS < 15 (0-50); Magnesium 2.8 mg/dL (1.6-2.3); Potassium 4.9 mmol/L (3.4-5.1); Sodium 131 mmol/L (137-145); Total Protein 6.2 g/dL (6.3-8.2)
[2024-05-15 04:49] LABS: Hematocrit 41.5 % (36-46); Hemoglobin 13.2 g/dL (12.0-16.0); Mean Corpuscular HGB Conc 31.9 % (30-36); Mean Corpuscular Volume 81.5 fL (80-100); Platelet Count 365 X10^3/uL (150-400); Red Blood Cell Count 5.09 X10^6/uL (4.0-5.2); Red Cell Distribution Width 17.9 % (11.6-14.8); White Blood Cell Count 17.9 X10^3/uL (4.5-11.0)
[2024-05-15 04:51] LABS: Add Manual Diff / Slide Review YES
[2024-05-15 04:54] LABS: Carbon Dioxide 39 mmol/L (22-32)
[2024-05-15 05:19] LABS: Neutrophils Absolute Manual 15931 /uL (3000-5900); Total Cells Counted 100
[2024-05-15 05:20] LABS: Anisocytosis 1+
[2024-05-15] MEDS: diphenhydrAMINE 50 MG/ML VIAL 25 MG IV (06:20)
[2024-05-15] MEDS: FUROSEMIDE 80 MG in SODIUM CHLORIDE 0.9% 50 ML 116 MG IV (07:35)
[2024-05-15] MEDS: AMIODARONE 200 MG TABLET 100 MG PO (08:15)
[2024-05-15] MEDS: glipiZIDE 5 MG TABLET PO (08:15)
[2024-05-15] MEDS: MULTIVITAMIN 1 TABLET 1 TAB PO (08:15)
[2024-05-15] MEDS: GABAPENTIN 300 MG CAPSULE PO (08:15)
[2024-05-15] MEDS: MEXILETINE 150 MG 150 EACH PO (08:15)
[2024-05-15] MEDS: METOPROLOL ER 25 MG TABLET PO (08:16)
[2024-05-15] MEDS: ASPIRIN 81 MG CHEW TAB PO (08:16)
[2024-05-15] MEDS: LORATADINE 10 MG TABLET PO (08:16)
[2024-05-15] MEDS: APIXABAN 5 MG TABLET PO (08:16)
[2024-05-15] MEDS: ALBUTEROL/IPRATROPIUM 3 ML AMPUL INH (08:16)
[2024-05-15] MEDS: cefTRIAXone 1,000 MG in SODIUM CHLORIDE 0.9% 100 ML 200 MG IV (08:16)
[2024-05-15] MEDS: BUDESONIDE 0.5 MG/2 ML NEB INH (08:17)
[2024-05-15] MEDS: FLUTICASONE 120 SPRAY/16 GM SPRAY.SUSP NASAL (08:17)
[2024-05-15] MEDS: NYSTATIN POWDER 15GM 1 APPLIC TOP (08:18)
--- NOTE | 2024-05-15 08:34 | PC.NURSE ---
Pt IV leaking, unable to save, Dr Echols notified, OK to leave IV out will transition to PO meds, care ongoing
[2024-05-15] MEDS: predniSONE 20 MG TABLET 40 MG PO (09:04)
[2024-05-15] MEDS: PANTOPRAZOLE DR 40 MG TABLET PO (09:04)
--- NOTE | 2024-05-15 09:25 | DIET.CONS ---
Dietary Consultation Note Admission Date: 05/09/2024 20:21 Assessment: 59 y F admitted for COPD exacerbation, hypoxic resp failure. PMH of CHF and non-insulin dependent diabetes. RD screened for LOS Pt lab value glucose has been >300 for last 4 draws. Pt not on carb consistent diet. Has been ordering 2 or more sodas with 1-2 meals per day. Discussed pt in rounds in regards to BG management. No recent significant weight loss. PO intakes recorded to be >75%. Ht: 160.02 cm Wt: 111.584 kg BMI: 43.5 UBW: 112.582 kg on 02/22/24, 112.8 kg on 10/05/23 Last BM: 05/14/24 (05/14/24 12:05) MNA: [place] Score: 20 Diet: 05/10/24 Lunch General (Regular) Diet Diet Modifications: Food Texture: Level 7 - Regular Liquid Consistency: Level 0 - Thin Nutrition Percent Meal Consumed 100% 05/14/24 17:39 Percent Meal Consumed 100% 05/14/24 13:44 Percent Meal Consumed 100 05/14/24 13:33 Percent Meal Consumed 100% 05/14/24 10:32 Percent Meal Consumed 100% 05/13/24 17:39 Percent Meal Consumed 50% 05/13/24 12:58 Percent Meal Consumed 75% 05/13/24 09:58 Labs: RBC 5.09 X10^6/uL (4.0-5.2) 05/15/24 04:00 Hgb 13.2 g/dL (12.0-16.0) 05/15/24 04:00 Hct 41.5 % (36-46) 05/15/24 04:00 Creatinine 1.15 mg/dL (0.52-1.04) H 05/15/24 04:00 NT-Pro-B Natriuret Pep 698 pg/mL (<125) H 05/09/24 18:25 Nutrition Diagnosis: Altered nutrition related lab values r/t endocrine dysfunction, medication, and excessive carb intake during admission aeb lab values BG >300 x4 Interventions: 1. Discussed in team rounds. Hospitalist to order POC glucose checks and insulin sliding scale 2. Diet switching to carb consistent EER: 3-4 CHO servings at meals Monitoring/Evaluations: diet tolerance, BG Electronically Signed by: Kya Gordon 05/15/24 09:25 Clinical Dietitian [address] [address]
--- NOTE | 2024-05-15 11:06 | PM.DS.1 ---
History of Present Illness History of Present Illness Date Patient Seen: 05/15/24 Time Patient Seen: 11:06 Chief complaint: Wheezing, COPD Narrative: From Night Doctor: 59 year-old female with past medical history of CHF, COPD on 3 L of oxygen at baseline, non-dependent diabetes and atrial fibrillation on Eliquis and amiodarone s/p pacemaker presents with coughing and shortness of breath. The patient reports that about five days ago, she has noticed increasing shortness of breath with coughing. The patient however denies any chest pain or palpitation. The patient also denies any fever, chills, nausea, vomiting or diarrhea. Despite taking her home inhalers the patient's symptoms did not improve and the patient decide to come in. In our emergency room, the patient was in respiratory stress but was hemodynamically stable. The patient respiratory rate was in the 30s. The patient oxygen saturation however was still above 90% on her 3 L of oxygen. ABG shows a pH of 7.37, PCO2 in the 50s and PO2 61. Chest x-ray shows no clear signs of pneumonia or volume overload. UA suggested UTI. WBC was 13,000. BMP was 600s. The patient was given IV Lasix, Solumedrol and duonebs as well as Ceftriaxone. Additional information: She was had colored sputum production for the last 5 days. Mostly green. She denies any chest pain, or fevers. She was comfortable on high-flow oxygen. Discharge Providers Provider Date of admission: 05/09/24 20:21 Discharge Date: 05/15/24 Primary care physician: Jolene Steen PA-C Discharge provider: Armin Echols DO Summary Hospital Course Discharge Diagnosis: 1. COPD exacerbation. Present on admission and active. 2. Acute on chronic hypoxic respiratory failure (3 L O2 @ home). Present on admission and active. 3. Hypokalemia, new and active. 4. Acute systolic CHF (ECHO 08/2022 indicate an EF of 25-30%). No clear signs of volume overload. Will monitor I/Os and daily weight. Will give additional lasix if needed. 5. UTI. Continue IVF Ceftriaxone 6. History of arrhythmia/afib on amiodarone and Eliquis. Resume home medication. 7. Non-Insulin dependent diabetes. Now on home Jardiance, continue sliding scale. 8. Morbid obesity (BMI 43), present on admission and active.. Hospital Course: This is a 59-year-old female with frequent admissions for respiratory failure who was initially admitted with COPD and heart failure with acute hypoxic respiratory failure. She had wheezing but also has evidence of mild volume overload. She has known systolic dysfunction with an EF of 30-35%. She had been progressively short of breath and has had a productive cough. She was initially requiring high-flow nasal oxygen, and was started on antibiotics, steroids, and diuresis. She remained on high-flow oxygen for quite some time, her diuresis was increased with an output over 6 L over the course of 2 days. With this she was able to be weaned to nasal cannula. She was also noted to have urinary tract infection on admission, with cultures growing E coli which was pansensitive. She completed a course of antibiotics here in the hospital with treatment for pneumonia. A number of things were noted over the course of her stay. Her sugars remain markedly elevated due to constant snacking of high carbohydrate snacks and were difficult to control. On the day of discharge, she was able to be weaned to under 3 L, her usual amount of oxygen at home, maintaining O2 saturations at 92%. The patient would get up and turn up her oxygen up to 7 L where she felt that her communications department head and educational coordinator recommended her being. She was provided education on supplemental oxygen use, and risks of over oxygenation including hypercapnia. Despite this she was still upset that we continued to try to wean her oxygen. However given her current respiratory status, and her mobility and being able to move about her room, she was deemed appropriate for discharge home at that time. She had lost her IV the day prior to discharge and was converted to oral therapies. The day prior to discharge as well we had tried an alternative pain management solution as her hydrocodone, Tylenol combination had not been working recently. She was started on gabapentin and transition to oral Dilaudid which did seem to help her symptoms the following day. Recommend continued outpatient follow-up with primary care. She was provided with another few days of steroids to complete treatment for COPD exacerbation, and she is likely euvolemic after aggressive diuresis here in the hospital so may remain on her usual 80 mg of furosemide a day. No other changes to her chronic medications are recommended at the time of discharge. Time Spent with Patient Time spent: Greater than 30 minutes Exam Vital Signs (past 8 hours): - 05/15/24 04:00 05/15/24 07:00 05/15/24 08:00 Temperature 97.5 F L 96.9 F L Pulse Rate 60 60 Respiratory Rate 20 22 Blood Pressure 101/50 L 110/54 L Pulse Oximetry 95 94 Oxygen Delivery Method Heated High Flow Oxygen Flow Rate 7 5 05/15/24 08:20 Temperature Pulse Rate 61 Respiratory Rate 20 Blood Pressure Pulse Oximetry 95 Oxygen Delivery Method Oximask Oxygen Flow Rate 6 Fraction of Inspired Oxygen 0.45 SaO2/FiO2 Ratio 46665 Oxygen Delivery Method Oximask Oxygen Flow Rate 6 Narrative Exam Narrative: NAD, alert and oriented. Fluent speech. Tearful today Lungs are notable for focal inspiratory and expiratory wheezing in the right anterior upper chest, and some prolonged expiratory phase in the left and right chest. Normal rate and effort, she was comfortable on high-flow O2 FiO2 40%. Heart is regular, no murmur gallop or rub. Abdomen is soft, non distended. Extremities are with none to trace edema. Objective Labs 05/15/24 04:00 05/15/24 04:00 Labs: Laboratory Results - last 24 hr 05/15/24 04:00 WBC 17.9 H RBC 5.09 Hgb 13.2 Hct 41.5 MCV 81.5 MCH 26.0 MCHC 31.9 RDW 17.9 H Plt Count 365 Neut % (Auto) Not Reportable Lymph % (Auto) Not Reportable [place] % (Auto) Not Reportable Eos % (Auto) Not Reportable Baso % (Auto) Not Reportable Lymph # (Auto) Not Reportable [place] # (Auto) Not Reportable Baso # (Auto) Not Reportable Total Counted 100 Seg Neutrophils % 87.0 H Band Neutrophils % 2.0 L Lymphocytes % (Manual) 6.0 L Monocytes % (Manual) 5.0 Neutrophils # (Manual) 82426 H RBC Morphology See below Anisocytosis 1+ H Sodium 131 L Potassium 4.9 Chloride 90 L Carbon Dioxide 39 H BUN 46 H Creatinine 1.15 H Estimated GFR 54 L BUN/Creatinine Ratio 40.0 H Glucose 335 H Calcium 9.0 Magnesium 2.8 H Total Bilirubin 0.3 AST 19 ALT 22 Alkaline Phosphatase 142 H Total Protein 6.2 L Albumin 3.5 Globulin 2.7 Albumin/Globulin Ratio 1.3 PFSH Medical History Cervical spondylosis Neck pain Cervical radiculopathy CAD (coronary artery disease) Congestive heart failure COPD (chronic obstructive pulmonary disease) Surgical History AICD (automatic cardioverter/defibrillator) present H/O heart artery stent Social History household members: spouse and none lives independently: Yes Smoking Status: Former smoker alcohol intake: current Discharge Plan Discharge Plan Patient Disposition: Home Provider Discharge Comment: Admitted to the hospital with trouble breathing, possibly due to a combination of fluid overload, Pneumonia, and COPD exacerbation. You completed a course of antibiotics here in the hospital. Complete steroids at home for 3 more days, and continue regular dose of diuretics. Discharge orders & Medications Prescriptions: New prednisone 20 mg tablet 40 mg PO DAILY 3 Days Qty: 6 0RF hydromorphone 2 mg Tablet 2 mg PO Q4HR PRN (Reason: Pain, Moderate (4-6)) 7 Days Qty: 40 0RF gabapentin 300 mg Capsule 300 mg PO BID 30 Days Qty: 60 0RF Continued amiodarone 200 mg tablet 100 mg PO DAILY Patient Comments: TAKE 1/2 (ONE-HALF) TABLET BY MOUTH ONCE DAILY albuterol sulfate [Ventolin HFA] 90 mcg/actuation HFA aerosol inhaler 2 puff INHALATION QID PRN (Reason: Shortness Of Breath) Patient Comments: INHALE 2 PUFFS BY MOUTH 4 TIMES DAILY NEEDED Eliquis 5 mg tablet 5 mg PO BID Patient Comments: TAKE 1 TABLET BY MOUTH TWICE DAILY metoprolol succinate 25 mg tablet extended release 24 hr 25 mg PO DAILY Patient Comments: TAKE 1 TABLET BY MOUTH TWICE DAILY FOR BLOOD PRESSURE promethazine 25 mg tablet 25 mg PO Q6H PRN (Reason: Nausea) Patient Comments: TAKE 1 TABLET BY MOUTH EVERY 6 HOURS multivitamin Tablet 1 tab PO DAILY albuterol sulfate 2.5 mg /3 mL (0.083 %) solution for nebulization 2.5 mg inhalation 4XD PRN (Reason: wheezing) mexiletine 150 mg capsule 150 mg PO BID budesonide 0.5 mg/2 mL suspension for nebulization 0.5 mg inhalation BID montelukast 10 mg tablet 10 mg PO BEDTIME Jardiance 10 mg tablet 10 mg PO DAILY Entresto 24-26 mg tablet 1 tab PO BID pantoprazole [Protonix] 40 mg tablet,delayed release (DR/EC) 40 mg PO BID Qty: 60 2RF diazepam [Valium] 5 mg tablet 5 mg PO BID PRN (Reason: anxiety) Qty: 14 0RF aspirin 81 mg Tablet 81 mg PO DAILY cetirizine [All Day Allergy (cetirizine)] 10 mg Tablet 10 mg PO DAILY Saccharomyces boulardii [Florastor] 250 mg Capsule 250 mg PO BID fluticasone propionate 50 mcg/actuation spray,suspension 2 spray INTRANASAL BID furosemide 80 mg tablet 80 mg PO DAILY Discontinued hydrocodone-acetaminophen 5-325 mg Tablet 1 tab PO Q4HR PRN (Reason: Pain, Moderate (4-6)) Qty: 14 0RF Follow up/Referrals: Jolene Steen PA-C [Primary Care Provider] - Diet/Activity/Treatments Diet: Diet as Tolerated and Carb-consistent/Diabetic Activity: As tolerated, no restrictions Oxygen: As needed to maintain oxygen from 90-96% Visit Report/Discharge Packet Stand Alone Forms: Patient Portal/API, Stroke Signs & Symptoms Discharge Data Primary Care Provider: Jolene Steen
--- NOTE | 2024-05-15 12:59 | CM.DPNOTE ---
DC Note Patient has been discharged home, spouse to transport. Met w/patient to review discharge plan; patient would like [facility]. Emailed [facility] at [facility] with completed and signed F2F, HH order, face sheet and H+P. DC Summary has not been signed. Plan: Discharge home w/family, [facility], family to transport. JW
== END 2024-05-15 13:11 | disposition home health service (06) | DRG 291 ==
LOC: ED 20:22 → AC 20:22 → ICU 20:52
PROVIDERS: Hospitalist; Internal Medicine; Admitting Provider Internal Medicine; Emergency Provider Emergency Medicine; Family Provider Internal Medicine; PCP Physician Assistant Medical; Referring Provider Emergency Medicine; Visit Provider Internal Medicine
DX: I50.21 Acute systolic (congestive) heart failure (principal); J18.9 Pneumonia, unspecified organism; J96.21 Acute and chronic respiratory failure with hypoxia; J44.1 Chronic obstructive pulmonary disease with (acute) exacerbation; N39.0 Urinary tract infection, site not specified; Z68.41 Body mass index [BMI] 40.0-44.9, adult; J44.0 Chronic obstructive pulmonary disease with (acute) lower respiratory infection; I48.91 Unspecified atrial fibrillation; I25.10 Atherosclerotic heart disease of native coronary artery without angina pectoris; E66.01 Morbid (severe) obesity due to excess calories; E87.6 Hypokalemia; B96.20 Unspecified Escherichia coli [E. coli] as the cause of diseases classified elsewhere; E11.65 Type 2 diabetes mellitus with hyperglycemia; F41.9 Anxiety disorder, unspecified; Z99.81 Dependence on supplemental oxygen; Z79.84 Long term (current) use of oral hypoglycemic drugs; Z79.01 Long term (current) use of anticoagulants; Z87.891 Personal history of nicotine dependence; Z95.0 Presence of cardiac pacemaker; Z95.5 Presence of coronary angioplasty implant and graft
CPT/HCPCS: 0241U; 36415; 36600; 71045; 80048; 80053; 81001; 82550; 82805; 83690; 83735; 83880; 84484; 85007; 85025; 87040; 87077; 87086; 87186; 87633; 87797; 93005; 94640; 94762; 96374; 96375; 99285; 99291; J0696; J0780; J1200; J1940; J2919; J7613

== ENCOUNTER 2024-06-14 16:51 | Inpatient (IN) | payer MEDICARE, MEDICAID, SELFPAY ==
[2023-10-04 14:16] VITALS: PULSE 70; RESP 18; O2SAT 100
[2024-05-09 20:46] VITALS: BMI 43.5
[2024-06-14] VITALS (29 sets, daily range): BP systolic 71–140; BP diastolic 45–91; PULSE 0–125; RESP 16–53; TEMP 31–37.1; O2SAT 87–99; BMI 44.1
--- NOTE | 2024-06-14 | DI.ECHO.S_ITS ---
[place] [facility]---------+ [facility] : : [address] : : [place] : : [id number] : : Phone: [phone] Echocardiogram Report + + :Name: JOYA JOHNSON Study Date: 06/15/2024 Height: 63 in : :[facility] ReadingLocation: Weight: 249 lb : : Gender: Female BSA: 2.1 m2 : :: 1965 Age: 59 yrs BP: 122/77 mmHg: :Reason For Study: SHORTNESS OF BREATH : :Ordering Physician: JERRY, : :PHILLIP NEGRETE Performed By: Candie yMers : :Referring: PHILLIP EDWARDS MD : + + Interpretation Summary cardiac tech note: Patient scanned in a supine and seated postion from apical window through remainder of exam due to difficulty breathing and coughing fits. 1) Moderately enlarged left ventricle with severely reduced systolic function (EF 25-30%). 2) Mildly enlarged right ventricle with normal function., There is a pacemaker lead in the right ventricle. 3) No significant valvular abnormalities. 4) Compared to the Echo done 08/30/2022, no significant change. Procedure: A two-dimensional transthoracic echocardiogram with color flow and Doppler was performed. The study quality was technically difficult. Comparison is made with the echocardiogram of 08/30/2022. A contrast injection of Definity was performed to improve assessment of LV function. EKG artifact throughout due to coughing attacks. Left Ventricle: The left ventricle is moderately dilated. There is mild concentric left ventricular hypertrophy. The ejection fraction is estimated to be 25-30%. There is severe global hypokinesis of the left ventricle. Right Ventricle: There is a pacemaker lead in the right ventricle. The right ventricle is mildly dilated. The right ventricular systolic function is normal. Atria: The left atrial size is normal. Right atrial size is normal. There is a catheter/pacemaker lead seen in the right atrium. There is no Doppler evidence for an interatrial shunt. Mitral Valve: The mitral valve leaflets appear mildly thickened, but open well. There is mild mitral regurgitation. Aortic Valve: The aortic valve is trileaflet. The aortic valve is slightly calcified. There is mild aortic valve sclerosis. There is no aortic valve stenosis. No aortic regurgitation is present. Tricuspid Valve: The tricuspid valve is not well visualized, but is grossly normal. No tricuspid regurgitation. Pulmonary artery pressures cannot be estimated because of the lack of a measurable TR jet velocity. Pulmonic Valve: The pulmonic valve is not well visualized. There is no pulmonic valvular regurgitation. Great Vessels: The aortic root is normal size. The dimensions of the ascending aorta are normal. The inferior vena cava was not visualized. Pericardium/ Pleura There is no pericardial effusion. There is no pleural effusion. MMode/2D Measurements & Calculations LVIDd: 6.1 cm LVOT diam: 2.2 cm LVIDs: 5.4 cm Ao root diam: 2.8 cm FS: 11.0 % asc Aorta Diam: 3.4 cm EPSS: 2.0 cm IVSd: 1.1 cm LVPWd: 1.1 cm LV conner. diameter/BSA (cm/m^2): 2.9 LV sys. diameter/BSA (cm/m^2): 2.6 LA A2 area: 19.4 cm2 RA long axis: 4.4 cm LA A4 area: 17.1 cm2 RA area: 13.1 cm2 LA length (vol): 5.2 cm RA vol: 33.6 ml LA vol: 54.1 ml RA : 15.8 ml/m2 LA vol index: 25.5 ml/m2 RVD1 (basal): 4.1 cm RVD2 (mid): 3.7 cm TAPSE: 2.2 cm Doppler Measurements & Calculations Ao V2 max: 195.2 cm/sec LVOT Max Vijay: 101.4 cm/sec Ao V2 mean: 140.9 cm/sec LV V1 max P.1 mmHg Ao max P.2 mmHg LV V1 VTI: 20.2 cm Ao mean P.8 mmHg SHELLI(I,D): 2.3 cm2 Ao V2 VTI: 34.8 cm SHELLI(V,D): 2.1 cm2 sev ratio: 0.58 SHELLI indexed to BSA (cm^2/m^2): 1.1 MV E max vijay: 83.5 cm/sec PA V2 max: 128.1 cm/sec MV A max vijay: 80.5 cm/sec PA V2 mean: 97.8 cm/sec MV E/A: 1.0 PA mean P.1 mmHg Med Peak E' Vijay: 7.2 cm/sec PA pr(Accel): 13.9 mmHg E/E' med: 11.6 Lat Peak E' Vijay: 5.7 cm/sec E/E' lat: 14.6 E/e' average: 13.1 MV dec time: 0.26 sec SV(LVOT): 80.4 ml Reading Physician:01:39 PM
--- NOTE | 2024-06-14 17:07 | EKG_ITS ---
[address] [address] Test Date: 2024-06-14 Pat Name: Bernarda Chong Department: Room: 228 Gender: Female Program Or Project Administrator: CHAD MILLER : 1965 Requested By: Order Number: [id number] Reading MD: Jai Thornton Measurements Intervals [place] Rate: 119 P: WI: QRS: -86 QRSD: 162 T: 96 QT: 406 QTc: 571 Interpretive Statements Ventricular-paced rhythm Electronically Signed On 06-15-2024 8:40:53 PST by Jai Thornton
--- NOTE | 2024-06-14 17:15 | DI.RAD.S_ITS ---
PROCEDURE: XR CHEST 1V INDICATIONS: Shortness of breath TECHNIQUE: One view of the chest was acquired. COMPARISON: [facility], , XR CHEST 1V, 05/11/2024, 14:30. FINDINGS: Patient motion degrades images Surgical changes and devices: Cardiac device with leads in the right atrium and right ventricle. Clothing zippers overlie the patient. Lungs and pleura: Lungs are clear. No pleural effusions or pneumothorax. Mediastinum: Mediastinal contours appear normal. Heart size is enlarged. Bones and chest wall: No suspicious bony lesions. Overlying soft tissues appear unremarkable. IMPRESSION: No acute cardiopulmonary abnormality is seen. Stable cardiomegaly Dictated by: Aron Jones M.D. on 06/14/2024 at 17:03 Approved by: Aron Jones M.D. on 06/14/2024 at 17:05
[2024-06-14] MEDS: ALBUTEROL 2.5 MG/3 ML NEB (ADULT) 20 MG INH (17:17)
[2024-06-14] MEDS: methylPREDNISolone 125 MG/2 ML VIAL IV (18:07)
[2024-06-14] MEDS: MAGNESIUM SULFATE 2 GM/50 ML PIGGYBACK IV (18:07)
--- NOTE | 2024-06-14 18:19 | ED.SOB ---
HPI - SOB/Dyspnea General Chief Complaint: Shortness of Breath/Dyspnea Stated Complaint: SOB w/CO2,cough, feeling sick Time Seen by Provider: 06/14/24 16:57 Source: patient and family Mode of arrival: Family Vehicle Limitations: no limitations History of Present Illness HPI Narrative: 59-year-old female with a past medical history of COPD not chronically on supplemental oxygen CHF with an ejection fraction of 25%, hypertension, comes into the ED from home for evaluation shortness of breath. States it started yesterday got worse today. Upon initial evaluation patient tachypneic tachycardic speaking in very short sentences but protecting airway. Patient with pulse ox in the low 80s placed on 3 L nasal cannula slight improvement patient was immediately brought to room started on Solu-Medrol magnesium and hour neb. patient not complaining of any other symptoms such as headache visual disturbances chest pain fever chills nausea vomiting abdominal pain or any other GI/ symptoms. No recent travel no known sick contacts, patient does have pacemaker and is on Eliquis. Related Data Home Medications Medication Instructions Recorded Confirmed albuterol sulfate 90 mcg/actuation 2 puff inhalation QID PRN 07/17/22 05/09/24 aerosol inhaler (Ventolin HFA) Shortness Of Breath amiodarone 200 mg tablet 100 mg PO DAILY 07/17/22 05/09/24 apixaban 5 mg tablet (Eliquis) 5 mg PO BID 07/17/22 05/09/24 metoprolol succinate 25 mg 25 mg PO DAILY 08/29/22 05/09/24 tablet,extended release 24 hr multivitamin 1 tab PO DAILY 08/29/22 05/09/24 promethazine 25 mg tablet 25 mg PO Q6H PRN Nausea 08/29/22 05/09/24 fluticasone propionate 50 2 spray intranasal BID 11/07/22 05/09/24 mcg/actuation nasal spray,suspension albuterol sulfate 2.5 mg/3 mL 2.5 mg inhalation 4XD PRN wheezing 08/01/23 05/09/24 (0.083 %) solution for nebulization budesonide 0.5 mg/2 mL suspension 0.5 mg inhalation BID 08/01/23 05/09/24 for nebulization empagliflozin 10 mg tablet 10 mg PO DAILY 08/01/23 05/09/24 (Jardiance) mexiletine 150 mg capsule 150 mg PO BID 08/01/23 05/09/24 montelukast 10 mg tablet 10 mg PO BEDTIME 08/01/23 05/09/24 sacubitril 24 mg-valsartan 26 mg 1 tab PO BID 08/01/23 05/09/24 tablet (Entresto) furosemide 80 mg tablet 80 mg PO DAILY 10/15/23 05/09/24 Saccharomyces boulardii 250 mg 250 mg PO BID 05/09/24 05/09/24 capsule (Florastor) aspirin 81 mg tablet 81 mg PO DAILY 05/09/24 05/09/24 cetirizine 10 mg tablet (All Day 10 mg PO DAILY 05/09/24 05/09/24 Allergy (cetirizine)) Previous Rx's Medication Instructions Recorded pantoprazole 40 mg tablet,delayed 40 mg PO BID #60 tabs 10/07/23 release (Protonix) diazepam 5 mg tablet (Valium) 5 mg PO BID PRN anxiety #14 tabs 02/25/24 Allergies Allergy/AdvReac Type Severity Reaction Status Date / Time bee pollen Allergy Severe Anaphylaxis Verified 10/15/23 14:22 Fish Containing Products Allergy Severe Anaphylaxis Verified 10/15/23 14:22 shellfish derived Allergy Severe Anaphylaxis Verified 10/15/23 14:22 codeine Allergy Verified 10/15/23 14:22 erythromycin base Allergy Verified 10/15/23 14:22 iodine Allergy Rash Verified 10/15/23 14:22 latex Allergy Rash Verified 10/15/23 14:22 pamabrom [From [facility]] Allergy Verified 10/15/23 14:22 doxycycline AdvReac Vomiting Verified 10/15/23 14:22 Review of Systems Review of Systems Narrative: General: Denies fever, chills, weight loss HEENT: Denies headache, eye drainage, eye irritation, head trauma, sore throat, voice change Cardiovascular: Denies any chest pain, palpitations, shortness of breath, tachycardia Respiratory: Positive shortness of breath, cough, wheeze, denies stridor GI/: Denies any abdominal pain, nausea, vomiting, diarrhea, bright red blood per rectum, melanotic stools, urinary frequency, urinary retention, dysuria, hematuria MSK: Denies any joint pain, muscle pains, swelling Skin: Denies any rashes, lesions, discoloration Neuro: Denies any headache, lightheadedness, dizziness, fainting, weakness Psych: Denies SI/HI Patient History Medical History Cervical spondylosis Neck pain Cervical radiculopathy CAD (coronary artery disease) Congestive heart failure COPD (chronic obstructive pulmonary disease) Surgical History AICD (automatic cardioverter/defibrillator) present H/O heart artery stent Social History household members: spouse and none lives independently: Yes Smoking Status: Former smoker alcohol intake: current Smoking Status: Former smoker tobacco type: cigarettes alcohol intake frequency: holidays/special occasions only Exam Narrative Exam Narrative: General: Cooperative, comfortable, well-developed, not in acute distress HEENT: Normocephalic, atraumatic, PERRLA, normal sclera, eyelids normal, Neck: Active full range of motion, atraumatic Chest: Normal to inspection, negative crepitus, no overlying erythema ecchymosis Respiratory: Patient tachypneic tachycardic, speaking in short sentences but protecting airway, significant wheezing noted in bilateral anterior posterior lung holt, however she is tolerating secretions protecting airway. Patient will be placed on BiPAP/AVAPS for work of breathing Cardiology: Regular rate rhythm negative gallop, murmur, rubs GI/: Normal to inspection, soft, nonrigid, no tenderness to palpation, exam deferred MSK: Full range of active range of motion of all 4 extremities, atraumatic Skin: No rashes lesions noted Neuro: Alert awake oriented x3, moves all 4 extremities spontaneously, cranial nerves intact, able to answer all questions appropriately follows commands appropriately Psych: Cooperative, negative suicidal or homicidal ideations Initial Vital Signs Initial Vital Signs: Vital Signs Temperature 98.7 F 06/14/24 16:57 Pulse Rate 116 H 06/14/24 16:57 Respiratory Rate 26 H 06/14/24 16:57 Blood Pressure 91/61 06/14/24 16:57 Pulse Oximetry 92 06/14/24 16:57 Oxygen Delivery Method Room Air 06/14/24 16:57 Course Orders Ordered: ED Orders 06/14/24 17:01 Covid-19 + FLU A/B + RSV - PCR Stat 06/14/24 17:15 XR chest 1V Stat EKG-12 Lead Stat Measure peak expiratory flow ONCE RT Consult Eval and Treat NOW 06/14/24 18:02 Complete Blood Count AUTO DIFF Stat Comprehensive Metabolic Panel Stat Lactate (Lactic Acid) Stat NT-proBNP (BNP-Adult 18+) Stat Prothrombin Time INR Stat Troponin I Stat 06/14/24 18:27 Arterial Blood Gas STAT 06/14/24 19:00 Blood Culture Stat POTASSIUM CHLORIDE IN WATER (Potassium Cl 10 Meq/100 Ml [place]) 10 meq in 100 mls @ 100 mls/hr IV Q1H BRANDON Stop: 06/14/24 22:44 Last Infusion: 06/14/24 21:02 Dose: 75 mls/hr Documented By: Admin: 06/14/24 20:49 Dose: 100 mls/hr Documented By: Infusion: 06/14/24 20:48 Dose: Infused Documented By: Admin: 06/14/24 19:43 Dose: 100 mls/hr Documented By: MAUREEN Discontinued Medications Albuterol (Albuterol 2.5 Mg/3 Ml Neb (Adult)) 20 mg INH NOW ONE Stop: 06/14/24 17:16 Last Admin: 06/14/24 17:17 Dose: 20 mg Documented By: FAUSTINA Magnesium Sulfate (Magnesium Sulfate) 2 gm in 50 mls @ 150 mls/hr IV NOW ONE Stop: 06/14/24 17:38 Last Infusion: 06/14/24 18:29 Dose: Infused Documented By: MAUREEN Co-signed By: KAILASH Admin: 06/14/24 18:07 Dose: 150 mls/hr Documented By: MAUREEN Co-signed By: KAILASH Sodium Chloride (Normal Saline 0.9%) 1,000 mls @ 500 mls/hr IV BOLUS ONE Stop: 06/14/24 20:21 Last Infusion: 06/14/24 20:48 Dose: Infused Documented By: Admin: 06/14/24 18:31 Dose: 500 mls/hr Documented By: MAUREEN Vancomycin HCl/Dextrose (Vancomycin) 2,000 mg in 400 mls @ 200 mls/hr IV NOW ONE Stop: 06/14/24 20:36 Last Admin: 06/14/24 20:17 Dose: 200 mls/hr Documented By: MAUREEN Piperacillin Sod/Tazobactam (Sod 4.5 gm/ Sodium Chloride) 100 mls @ 200 mls/hr IV NOW ONE Stop: 06/14/24 18:37 Last Infusion: 06/14/24 20:16 Dose: Infused Documented By: Admin: 06/14/24 19:27 Dose: 200 mls/hr Documented By: MAUREEN Methylprednisolone (Methylprednisolone 125 Mg/2 Ml Vial) 125 mg IV NOW ONE Stop: 06/14/24 17:16 Last Admin: 06/14/24 18:07 Dose: 125 mg Documented By: MAUREEN Vital Signs Vital signs: Vital Signs - 8 hr 06/14/24 16:57 06/14/24 17:12 06/14/24 17:13 Temperature 98.7 F Pulse Rate 116 H 125 H 109 H Respiratory Rate 26 H 25 H 31 H Blood Pressure 91/61 93/66 Pulse Oximetry 92 93 93 Oxygen Delivery Method Room Air Oxygen Flow Rate Fraction of Inspired Oxygen 06/14/24 17:18 06/14/24 17:30 06/14/24 17:50 Temperature Pulse Rate 103 H 110 H 0 L Respiratory Rate 30 H 42 H 30 H Blood Pressure 71/53 L Pulse Oximetry 93 93 96 Oxygen Delivery Method Room Air Oxygen Flow Rate 0 Fraction of Inspired Oxygen 21 06/14/24 18:00 06/14/24 18:15 06/14/24 18:53 Temperature Pulse Rate 108 H 109 H Respiratory Rate 42 H 35 H Blood Pressure 79/46 L 79/50 L 99/56 L Pulse Oximetry 92 89 L Oxygen Delivery Method Oxygen Flow Rate Fraction of Inspired Oxygen 30 MDM - SOB/Dyspnea Differential Diagnosis Differential diagnosis: Likely acute exacerbation of chronic obstructive airways disease, congestive heart failure, community acquired pneumonia and other (Electrolyte abnormality, COVID, flu, ACS) Lab Data 06/14/24 18:02 06/14/24 18:02 Labs: Lab Results 06/14/24 06/14/24 06/14/24 Range/Units 17:01 18:02 19:14 WBC 11.8 H (4.5-11.0) X10^3/uL RBC 4.96 (4.0-5.2) X10^6/uL Hgb 13.0 (12.0-16.0) g/dL Hct 41.1 (36-46) % MCV 82.9 (80-100) fL MCH 26.3 (26-34) PG MCHC 31.7 (30-36) % RDW 19.2 H (11.6-14.8) % Plt Count 281 (150-400) X10^3/uL Neut % (Auto) 74.5 (50-75) % Lymph % (Auto) 13.9 L (25-40) % [place] % (Auto) 9.6 (3-14) % Eos % (Auto) 0.7 L (2-4) % Baso % (Auto) 1.3 (0-2) % Neut # (Auto) 8800 H (4205-7217) /uL Lymph # (Auto) 1600 (1691-8167) /uL [place] # (Auto) 1100 H (0-900) /uL Eos # (Auto) 100 (0-450) /uL Baso # (Auto) 100 (0-100) /uL PT 13.9 H (9.4-12.5) SECONDS INR 1.2 (0.9-1.3) ABG Sample Site Right radial ABG pH 7.46 H (7.35-7.45) ABG pCO2 41.4 (35-45) mmHg ABG pO2 76 L (80-100) mmHg ABG HCO3 30 H (23-27) mmol/L ABG Total CO2 29 H (23-27) mmol/L ABG O2 Saturation 96 (95-100) % ABG Base Excess 5.3 H (-2-3) mmol/L Jai Test Positive O2 Delivery Device Bipap FiO2 % 30.0 % % Sodium 136 L (137-145) mmol/L Potassium 2.9 L (3.4-5.1) mmol/L Chloride 97 L (98-107) mmol/L Carbon Dioxide 29 (22-32) mmol/L BUN 12 (7-17) mg/dL Creatinine 1.12 H (0.52-1.04) mg/dL Estimated GFR 56 L (>60) mL/min BUN/Creatinine Ratio 10.7 (6-22) Glucose 239 H (80-110) mg/dL Lactate 4.7 H* (0.7-2.1) mmol/L Calcium 9.1 (8.4-10.2) mg/dL Total Bilirubin 0.6 (0.2-1.3) mg/dL AST 39 H (14-36) IU/L ALT 36 H (<35) IU/L Alkaline Phosphatase 125 (38-126) U/L Troponin I 0.029 (0.01-0.034) ng/mL NT-Pro-B Natriuret Pep 570 H (<125) pg/mL Total Protein 6.9 (6.3-8.2) g/dL Albumin 4.1 (3.5-5.0) g/dL Globulin 2.8 (1.7-4.1) g/dL Albumin/Globulin Ratio 1.5 (1.0-2.8) SARS-CoV-2 (PCR) Negative (Negative) Influenza A (RT-PCR) Flu a negative (NEGATIVE) Influenza B (RT-PCR) Flu b negative (NEGATIVE) RSV (PCR) Negative (Negative) 06/14/24 Range/Units 20:02 WBC (4.5-11.0) X10^3/uL RBC (4.0-5.2) X10^6/uL Hgb (12.0-16.0) g/dL Hct (36-46) % MCV (80-100) fL MCH (26-34) PG MCHC (30-36) % RDW (11.6-14.8) % Plt Count (150-400) X10^3/uL Neut % (Auto) (50-75) % Lymph % (Auto) (25-40) % [place] % (Auto) (3-14) % Eos % (Auto) (2-4) % Baso % (Auto) (0-2) % Neut # (Auto) (5518-6771) /uL Lymph # (Auto) (5241-4774) /uL [place] # (Auto) (0-900) /uL Eos # (Auto) (0-450) /uL Baso # (Auto) (0-100) /uL PT (9.4-12.5) SECONDS INR (0.9-1.3) ABG Sample Site ABG pH (7.35-7.45) ABG pCO2 (35-45) mmHg ABG pO2 (80-100) mmHg ABG HCO3 (23-27) mmol/L ABG Total CO2 (23-27) mmol/L ABG O2 Saturation (95-100) % ABG Base Excess (-2-3) mmol/L Jai Test O2 Delivery Device FiO2 % % Sodium (137-145) mmol/L Potassium (3.4-5.1) mmol/L Chloride (98-107) mmol/L Carbon Dioxide (22-32) mmol/L BUN (7-17) mg/dL Creatinine (0.52-1.04) mg/dL Estimated GFR (>60) mL/min BUN/Creatinine Ratio (6-22) Glucose (80-110) mg/dL Lactate 4.6 H* (0.7-2.1) mmol/L Calcium (8.4-10.2) mg/dL Total Bilirubin (0.2-1.3) mg/dL AST (14-36) IU/L ALT (<35) IU/L Alkaline Phosphatase (38-126) U/L Troponin I (0.01-0.034) ng/mL NT-Pro-B Natriuret Pep (<125) pg/mL Total Protein (6.3-8.2) g/dL Albumin (3.5-5.0) g/dL Globulin (1.7-4.1) g/dL Albumin/Globulin Ratio (1.0-2.8) SARS-CoV-2 (PCR) (Negative) Influenza A (RT-PCR) (NEGATIVE) Influenza B (RT-PCR) (NEGATIVE) RSV (PCR) (Negative) Imaging Data Chest x-ray: Radiologist's Impression: [address] [address] XRay Report Signed Patient: Bernarad Chong MR#: [id number] : 1965 Acct:[id number] Age/Sex: 59 / F Date of Service: 06/14/24 Loc: ED Accession Number: [id number] Procedure: XR chest 1V Ordering Provider: Harper Dacosta D.O. PROCEDURE: XR CHEST 1V INDICATIONS: Shortness of breath TECHNIQUE: One view of the chest was acquired. COMPARISON: [facility], , XR CHEST 1V, 05/11/2024, 14:30. FINDINGS: Patient motion degrades images Surgical changes and devices: Cardiac device with leads in the right atrium and right ventricle. Clothing zippers overlie the patient. Lungs and pleura: Lungs are clear. No pleural effusions or pneumothorax. Mediastinum: Mediastinal contours appear normal. Heart size is enlarged. Bones and chest wall: No suspicious bony lesions. Overlying soft tissues appear unremarkable. IMPRESSION: No acute cardiopulmonary abnormality is seen. Stable cardiomegaly ECG Data Interpretation: EKG interpreted ED physician ventricularly paced at 119, QTC 571 No STEMI MDM Narrative Medical decision making narrative: 59-year-old female with a history of CHF with a EF of 25% with pacemaker on Eliquis, COPD not chronically on supplemental oxygen presents for cough shortness of breath wheezing ongoing for the past 2 days. Patient was placed on AVAPS/BiPAP immediately upon arrival work of breathing, patient with a history of CHF with the EF of 25% however patient mapping 60% initially 500 cc bolus ordered. Patient with sepsis criteria lactate elevated most likely secondary to patient's acute respiratory distress however will provide prophylactic treatment of pneumonia vanc Zosyn ordered, no full 30 cc kilos bolus initiated at this time given patient's history of severe CHF with EF of 25%. 1954: Patient with significant improvement of respirations now that she is on AVAPS. Patient now speaking in full sentences playing on her phone watching however still some moderate wheezing to bilateral anterior and posterior lung holt. Patient will require admission for COPD exacerbation 2123: Delayed charting due to care of other critical patients, patient was re-evaluated she was weaned off AVAPS, she is sitting comfortably in the bed, however whenever patient is re-evaluated she starts to hyperventilate, she does not need positive pressure at this time however will be monitored closely and placed back on if need be. Discussed case with hospitalist accepts admission The patient's management plan was discussed Dr. Paulino, who agrees to admit the patient to their service and assumes care of this patient at this time. Full admission orders will be placed by the primary team. Discharge Plan Departure Patient Disposition: Admitted As Inpatient Clinical Impression: Acute exacerbation of chronic obstructive pulmonary disease
[2024-06-14 18:21] LABS: Influenza A - CEPHEID Flu A NEGATIVE (NEGATIVE); Influenza B - CEPHEID Flu B NEGATIVE (NEGATIVE); Respiratory Syncytial Virus Negative (Negative)
--- NOTE | 2024-06-14 18:22 | PC.NURSE ---
RT called to place patient on AVAP if machine available, if not then place patient on BiPAP. Chandrakant in RT aware.
[2024-06-14 18:23] LABS: COVID-19 CEPHEID 4-PLEX PCR Negative (Negative)
[2024-06-14 18:28] LABS: Add Manual Diff / Slide Review NO; Basophils Absolute Auto 100 /uL (0-100); Basophils Percent Auto 1.3 % (0-2); Eosinophils Absolute Auto 100 /uL (0-450); Eosinophils Percent Auto 0.7 % (2-4); Hematocrit 41.1 % (36-46); INR 1.2 (0.9-1.3); Lymphocytes Absolute Auto 1600 /uL (1100-4500); Lymphocytes Percent Auto 13.9 % (25-40); Mean Corpuscular HGB Conc 31.7 % (30-36); Mean Corpuscular Hemoglobin 26.3 PG (26-34); Mean Corpuscular Volume 82.9 fL (80-100); Monocytes Absolute Auto 1100 /uL (0-900); Monocytes Percent Auto 9.6 % (3-14); Neutrophils Absolute Auto 8800 /uL (1500-7000); Neutrophils Percent Auto 74.5 % (50-75); Platelet Count 281 X10^3/uL (150-400); Prothrombin Time 13.9 SECONDS (9.4-12.5); Red Blood Cell Count 4.96 X10^6/uL (4.0-5.2); Red Cell Distribution Width 19.2 % (11.6-14.8); White Blood Cell Count 11.8 X10^3/uL (4.5-11.0)
[2024-06-14] MEDS: SODIUM CHLORIDE 0.9% 1,000 ML 500 ML IV (18:31)
[2024-06-14 18:33] LABS: Alanine Aminotransferase 36 IU/L (<35); Albumin 4.1 g/dL (3.5-5.0); Albumin Globulin Ratio 1.5 (1.0-2.8); Alkaline Phosphatase 125 U/L (38-126); Aspartate Aminotransferase 39 IU/L (14-36); BUN Creatinine Ratio 10.7 (6-22); Bilirubin Total 0.6 mg/dL (0.2-1.3); Blood Urea Nitrogen 12 mg/dL (7-17); Calcium 9.1 mg/dL (8.4-10.2); Carbon Dioxide 29 mmol/L (22-32); Chloride 97 mmol/L (98-107); Estimated Glomerular Filt Rate 56 mL/min (>60); Globulin 2.8 g/dL (1.7-4.1); Glucose 239 mg/dL (80-110); HEMOLYSIS 23 (0-50); Potassium 2.9 mmol/L (3.4-5.1); Sodium 136 mmol/L (137-145); Total Protein 6.9 g/dL (6.3-8.2)
[2024-06-14 18:36] LABS: Lactate (Lactic Acid) 4.7 mmol/L (0.7-2.1)
[2024-06-14 18:45] LABS: NT-proBNP (BNP-Adult 18+) 570 pg/mL (<125); Troponin I 0.029 ng/mL (0.01-0.034)
[2024-06-14 19:17] LABS: Allen Test for ABG Passed? Positive; Base Excess ABG 5.3 mmol/L (-2-3); Blood Gas Collection Site Right Radial; Delivery System BiPAP; HCO3 ABG 30 mmol/L (23-27); Oxygen Saturation ABG 96 % (95-100); PCO2 ABG 41.4 mmHg (35-45); PO2 ABG 76 mmHg (80-100); TCO2 ABG 29 mmol/L (23-27); pH ABG 7.46 (7.35-7.45)
[2024-06-14] MEDS: PIPERACILLIN/TAZO 4.5 GM in SODIUM CHLORIDE 0.9% 100 ML IV (19:27)
[2024-06-14] MEDS: POTASSIUM CHLORIDE IN WATER 10 MEQ/100 ML PIGGYBACK 100 MEQ IV ×4 (19:43→23:23)
[2024-06-14 19:50] LABS: Reflexed Lactate in 2 Hours Y
[2024-06-14] MEDS: VANCOMYCIN 2,000 MG/400 ML PIGGYBACK 200 MG IV (20:17)
[2024-06-14 20:31] LABS: Lactate 2HR (Lactic Acid Rflx) 4.6 mmol/L (0.7-2.1)
--- NOTE | 2024-06-14 21:03 | PC.NURSE ---
Pt c/o burning to IV site with potassium infusing. IV 0.9% NS piggybacked at 100ml/hr, KCL decreased to 75ml/hr. Pt now tolerating much better.
--- NOTE | 2024-06-14 21:44 | PM.HP.1 ---
History of Present Illness History of Present Illness Date Patient Seen: 06/14/24 Date of Onset of Symptoms: 06/12/24 Chief complaint: SOB, feels sick Narrative: Bernarda Chong, is a 59 y/o F, with complicated PMH including Chronic Severe Systolic CHF, / Ischemic CM, s/p Cor stent and AICD on Entresto, Empagliflozin, Amiodarone, chronic a/c Apixaban, for severe Cardiomyopathy , Moderately severe COPD on home O2 and Home Bipap , HTN, DM 2, Morbid Obesity ( BMI 44) presented to ED with 2 days history of progressive Shortness of breath and wheezing She had been using her inhalers In ED, was tachypneic, not able to speak in full sentences, tachycardiac, afebrile, O2 sats on RA low at 89%, BP 99/56 MAP has been dipping below 65 per ED provider. She was wheezing, given Albuterol neb treatments hourly, also recd Magnesium IV, and Solumedrol 125 mg IV She was started on Bipap and then onwards to AVAPS AB.46/41/76 Sats 96 % on 30 % FiO2 Her Lactate was > 4 ( 4.6) was given 500 mls NS bolus, Bl cx obtained and empirically started on IV abx: Zosyn and Vancomycin WBC 11 K CXR No acute changes, No PNA BNP mild elevated at 570 ( this has been lower than her prior visits : 698 on 05/09/24) Full 30 mls NS bolus therefore not given Her K was low at 2.9, started on K rider 40 m eq IV Was referred to Hospitalist team for ICU admission for close monitoring of her resp status as well as hemodynamics given complicated cardio-pulm history and concern for decompensation. [facility] Medical History (Updated 06/15/24 @ 03:05 by Judith Paulino MD) Cardiac arrhythmia Morbid obesity due to excess calories Elevated brain natriuretic peptide (BNP) level Acute and chronic respiratory failure with hypoxia Chronic anticoagulation Cervical spondylosis Neck pain Cervical radiculopathy CAD (coronary artery disease) Congestive heart failure COPD (chronic obstructive pulmonary disease) Surgical History AICD (automatic cardioverter/defibrillator) present H/O heart artery stent Social History household members: spouse and none lives independently: Yes Smoking Status: Current some day smoker alcohol intake: current Meds Home Medications and Allergies Home Medications Medication Instructions Recorded Confirmed Type amiodarone 200 mg tablet 100 mg PO DAILY 07/17/22 06/15/24 History apixaban 5 mg tablet (Eliquis) 5 mg PO BID 07/17/22 06/15/24 History multivitamin 1 tab PO DAILY 08/29/22 06/15/24 History promethazine 25 mg tablet 25 mg PO Q6H PRN Nausea 08/29/22 06/15/24 History fluticasone propionate 50 2 spray intranasal BID 11/07/22 06/15/24 History mcg/actuation nasal spray,suspension budesonide 0.5 mg/2 mL suspension 0.5 mg inhalation BID 08/01/23 06/15/24 History for nebulization empagliflozin 10 mg tablet 10 mg PO DAILY 08/01/23 06/15/24 History (Jardiance) mexiletine 150 mg capsule 150 mg PO BID 08/01/23 06/15/24 History montelukast 10 mg tablet 10 mg PO BEDTIME 08/01/23 06/15/24 History sacubitril 24 mg-valsartan 26 mg 1 tab PO BID 08/01/23 06/15/24 History tablet (Entresto) pantoprazole 40 mg tablet,delayed 40 mg PO BID #60 tabs 10/07/23 06/15/24 Rx release (Protonix) furosemide 80 mg tablet 80 mg PO DAILY 10/15/23 06/15/24 History diazepam 5 mg tablet (Valium) 5 mg PO BID PRN anxiety #14 tabs 02/25/24 06/15/24 Rx aspirin 81 mg tablet 81 mg PO DAILY 05/09/24 06/15/24 History cetirizine 10 mg tablet (All Day 10 mg PO DAILY 05/09/24 06/15/24 History Allergy (cetirizine)) albuterol sulfate 90 mcg/actuation 2 puff inhalation Q4HR PRN sob 06/15/24 06/15/24 History aerosol inhaler diphenhydramine 25 2 tab PO PRN Sleep 06/15/24 History mg-acetaminophen 500 mg tablet (Tylenol PM Extra Strength) nystatin 100,000 unit/gram topical 1 applic topical BID 06/15/24 06/15/24 History powder Allergies Allergy/AdvReac Type Severity Reaction Status Date / Time bee pollen Allergy Severe Anaphylaxis Verified 10/15/23 14:22 Fish Containing Products Allergy Severe Anaphylaxis Verified 10/15/23 14:22 shellfish derived Allergy Severe Anaphylaxis Verified 10/15/23 14:22 codeine Allergy Verified 10/15/23 14:22 erythromycin base Allergy Verified 10/15/23 14:22 iodine Allergy Rash Verified 10/15/23 14:22 latex Allergy Rash Verified 10/15/23 14:22 pamabrom [From Mid] Allergy Verified 10/15/23 14:22 doxycycline AdvReac Vomiting Verified 10/15/23 14:22 Exam Vital Signs (past 8 hours): - 06/14/24 16:57 06/14/24 17:12 06/14/24 17:13 Temperature 98.7 F Pulse Rate 116 H 125 H 109 H Respiratory Rate 26 H 25 H 31 H Blood Pressure 91/61 93/66 Pulse Oximetry 92 93 93 Oxygen Delivery Method Room Air Oxygen Flow Rate Fraction of Inspired Oxygen 06/14/24 17:18 06/14/24 17:30 06/14/24 17:50 Temperature Pulse Rate 103 H 110 H 0 L Respiratory Rate 30 H 42 H 30 H Blood Pressure 71/53 L Pulse Oximetry 93 93 96 Oxygen Delivery Method Room Air Oxygen Flow Rate 0 Fraction of Inspired Oxygen 21 06/14/24 18:00 06/14/24 18:15 06/14/24 18:30 Temperature Pulse Rate 108 H 109 H 108 H Respiratory Rate 42 H 35 H 46 H Blood Pressure 79/46 L 79/50 L 89/54 L Pulse Oximetry 92 89 L 87 L Oxygen Delivery Method Oxygen Flow Rate Fraction of Inspired Oxygen 06/14/24 18:45 06/14/24 18:53 06/14/24 19:07 Temperature Pulse Rate 116 H 104 H Respiratory Rate 50 H 33 H Blood Pressure 99/56 L 99/56 L 86/50 L Pulse Oximetry 98 99 Oxygen Delivery Method Oxygen Flow Rate Fraction of Inspired Oxygen 30 06/14/24 19:30 06/14/24 19:46 06/14/24 20:00 Temperature Pulse Rate 107 H 118 H 108 H Respiratory Rate 31 H 46 H 34 H Blood Pressure 105/56 L 140/56 L 108/51 L Pulse Oximetry 96 93 89 L Oxygen Delivery Method Room Air Room Air Oxygen Flow Rate Fraction of Inspired Oxygen 06/14/24 20:01 06/14/24 20:19 06/14/24 20:38 Temperature Pulse Rate 111 H 110 H Respiratory Rate 53 H 31 H Blood Pressure 126/91 H 93/54 L Pulse Oximetry 93 94 95 Oxygen Delivery Method Nasal Cannula Oxygen Flow Rate 3 Fraction of Inspired Oxygen 06/14/24 20:45 06/14/24 21:01 Temperature Pulse Rate 105 H 102 H Respiratory Rate 31 H 25 H Blood Pressure 99/54 L 89/51 L Pulse Oximetry 95 96 Oxygen Delivery Method Nasal Cannula Oxygen Flow Rate 3 Fraction of Inspired Oxygen Fraction of Inspired Oxygen 30 SaO2/FiO2 Ratio 442 Oxygen Delivery Method Nasal Cannula Oxygen Flow Rate 3 Const General: cooperative and comfortable Nutritional Appearance: obese Orientation: alert, awake, oriented x3, oriented to person, oriented to place and oriented to time HENMT Head: normal to inspection Ears: other (PERRL, EOMI) Nose: nares normal Face and sinus: sinus tenderness (Frontal bilat ) Mouth: oral mucosae normal Throat: posterior oropharynx normal Eyes Conjunctivae: conjunctivae normal Sclera: sclerae normal Neck Neck: full ROM Thyroid: thyroid normal Other: no cervical lyymph adenopathy Resp Effort & Inspection: normal respiratory effort, able to speak in complete sentences, audible wheezes and other ( does not appear to be in acute resp distress ) Auscultation: other (no crackles or rhonchi bilat ) Cardio Rate: regular rate Rhythm: regular rhythm Heart Sounds: S1 normal, S2 normal and other (no murmur or rub ) Pulses: normal peripheral pulses GI Inspection: other (obese) Palpation: soft and no hepatosplenomegaly Auscultation: normal bowel sounds Back/Spine/Pelvis Back: normal to inspection Skin General: no rashes or lesions noted Rashes: no rashes Wounds: no wounds Neuro Cranial Nerves: other (No gross motor or sensory deficits) Cognition: normal cognition Speech: speech normal Extrem General: no calf tenderness and pedal edema (1+ ankles ) Psych Appearance: grossly normal Mental Status: mental status grossly normal Attitude: cooperative Thought Process: normal Judgment: judgment good Objective Labs 06/14/24 18:02 06/14/24 18:02 Labs: Laboratory Results - last 24 hr 06/14/24 06/14/2406/14/25 17:01 18:02 19:14 WBC 11.8 H RBC 4.96 Hgb 13.0 Hct 41.1 MCV 82.9 MCH 26.3 MCHC 31.7 RDW 19.2 H Plt Count 281 Neut % (Auto) 74.5 Lymph % (Auto) 13.9 L [place] % (Auto) 9.6 Eos % (Auto) 0.7 L Baso % (Auto) 1.3 Neut # (Auto) 8800 H Lymph # (Auto) 1600 [place] # (Auto) 1100 H Eos # (Auto) 100 Baso # (Auto) 100 PT 13.9 H INR 1.2 ABG Sample Site Right radial ABG pH 7.46 H ABG pCO2 41.4 ABG pO2 76 L ABG HCO3 30 H ABG Total CO2 29 H ABG O2 Saturation 96 ABG Base Excess 5.3 H Jai Test Positive O2 Delivery Device Bipap FiO2 % 30.0 % Sodium 136 L Potassium 2.9 L Chloride 97 L Carbon Dioxide 29 BUN 12 Creatinine 1.12 H Estimated GFR 56 L BUN/Creatinine Ratio 10.7 Glucose 239 H Lactate 4.7 H* Calcium 9.1 Total Bilirubin 0.6 AST 39 H ALT 36 H Alkaline Phosphatase 125 Troponin I 0.029 NT-Pro-B Natriuret Pep 570 H Total Protein 6.9 Albumin 4.1 Globulin 2.8 Albumin/Globulin Ratio 1.5 SARS-CoV-2 (PCR) Negative Influenza A (RT-PCR) Flu a negative Influenza B (RT-PCR) Flu b negative RSV (PCR) Negative 06/14/24 20:02 WBC RBC Hgb Hct MCV MCH MCHC RDW Plt Count Neut % (Auto) Lymph % (Auto) [place] % (Auto) Eos % (Auto) Baso % (Auto) Neut # (Auto) Lymph # (Auto) [place] # (Auto) Eos # (Auto) Baso # (Auto) PT INR ABG Sample Site ABG pH ABG pCO2 ABG pO2 ABG HCO3 ABG Total CO2 ABG O2 Saturation ABG Base Excess Jai Test O2 Delivery Device FiO2 % Sodium Potassium Chloride Carbon Dioxide BUN Creatinine Estimated GFR BUN/Creatinine Ratio Glucose Lactate 4.6 H* Calcium Total Bilirubin AST ALT Alkaline Phosphatase Troponin I NT-Pro-B Natriuret Pep Total Protein Albumin Globulin Albumin/Globulin Ratio SARS-CoV-2 (PCR) Influenza A (RT-PCR) Influenza B (RT-PCR) RSV (PCR) Assessment & Plan Assessment and plan (1) Acute exacerbation of chronic obstructive pulmonary disease: Problem details: Pt has severe COPD , on supp O2 and Bipap use at home. Etiology for exacerbation unclear/ Viral swabs for URI negative , including COVID, Flu, RSV Status: Acute Plan: Continue Bipap prn, and close monitoring in ICU as pt still quite shaky from COPD Exacerbation and her resp status may decompensate Continue 1-2 hourly Albuterol Inh treatments Continue Nathalia;umedrol 60 mg IV q 6 hrs ABG prn (2) Acute and chronic respiratory failure with hypoxia: Problem details: Likely sec to COPD exacerbation/ No evidence of PNA. May have a component of Systolic CHF exacerbation though Pro BNP mildly up Status: Acute Plan: See above plan Kepp O2 sats 92 % Avoid Narcotic meds as much as possible as given pt's body habnitus may have obesity / hyperventilatory syndrome (3) Elevated lactic acid level: Problem details: Probably sec to hypotensive event related to Hypoxia sec to COPD exacerbation No Fever or Leukocytosis/ CXR : no PNA However given Elevated Lactate , > 4, shall continue with empiric IV abx overnight Status: Acute Plan: Repeat Lactate 4 hrs after ED lactate lab draw Continue Zosyn and Vancomycin IV Vanc per pharmacy CBC in am (4) Elevated brain natriuretic peptide (BNP) level: Problem details: as noted above / has severe chronic Systolic CHF LVEF 25% Status: Acute Plan: Monitor Intake and Output Daily weight Continue Entresto, Empagloflozin May hold Lasix given SBP borderline low Echo in the morning to evaluate LVEF for any changes / ? Pulm HTN (5) Hypokalemia due to excessive renal loss of potassium: Problem details: Likely sec to large dose of Lasix at home and likely decreased oral intake Status: Acute Plan: Hold Lasix tonight Started on K risder in ED Monitor BMP / Electrolytes after Potassium Infusion completed Check Mag and replenish prn (6) Chronic anticoagulation: Problem details: On Chronic A/C / Apixaban , sec to Severe Cardiomyopathy/ h/o Cardiac arrythmias, been on Amiodarone and Mexilitine , has AICD Status: Acute Plan: Has no active Bleeding, HH stable Shall give evening dose of Apixaban, and continue bid per home dose Hold Amiodarone given borderline low SBP (7) Morbid obesity due to excess calories: Problem details: shelter Status: Acute Plan: Life style modifications to be encouraged Low fat / low cholesterol diet (8) Hyperglycemia: Problem details: No h/o DM , Random Hyperglycemia may be sec to stress of acute exacerbation of COPD Check Hb A1C, check fasting glucose. ACHS accu check , Reg Insulin per SS Pt states she had a sandwich just prior to arriving to ED / Her niece had brought the sandwich for her Status: Acute Time-Based Coding :: [TOTAL MINUTES] spent with patient and on the chart (including review of chart, obtaining history, exam, reviewing outside data, placing orders, documenting exam and treatment plan, and counseling patient) on [DATE].
[2024-06-14 22:00] LABS: Magnesium 1.6 mg/dL (1.6-2.3)
--- NOTE | 2024-06-14 22:03 | PC.NURSE ---
Re-assessments: 1900: Patient continues to have increased work of breathing despite IV medications and ongoing continuous NEB treatment. RT present at bedside and MD updated on patient presentation. MD requested patient be placed on AVAP to support breathing. Patient agreeable. 1930: Patient has improved respiratory effort and she appears much calmer, able to talk through AVAP mask. Vital signs improved. MD updated. 1950: Patient began having coughing fit and gagging, she independently repositioned her body and removed AVAP mask. After coughing and gagging fit, patient able to rest back on bed and is maintaining O2 sats on 3L NC. Patient allowed to rest with just cannula and AVAP placed in stand by. MD updated.
[2024-06-14 23:18] LABS: Procalcitonin 0.121 ng/mL (<0.5)
[2024-06-14] MEDS: APIXABAN 5 MG TABLET PO (23:21)
[2024-06-15] VITALS (64 sets, daily range): BP systolic 93–134; BP diastolic 48–90; PULSE 45–98; RESP 16–51; TEMP 30.1–37.2; O2SAT 89–97; BMI 42.5
[2024-06-15 00:13] LABS: Hemoglobin A1C% w Est Avg Glu 7.8 % (4.0-6.0)
[2024-06-15 00:17] LABS: Lactate (Lactic Acid) 5.4 mmol/L (0.7-2.1)
[2024-06-15] MEDS: methylPREDNISolone 125 MG/2 ML VIAL 60 MG IV ×5 (01:27→23:55)
[2024-06-15 01:34] LABS: Reflexed Lactate in 2 Hours Y
[2024-06-15] MEDS: PIPERACILLIN/TAZO 3.375 GM in SODIUM CHLORIDE 0.9% 100 ML IV ×2 (02:16→09:41)
[2024-06-15 02:46] LABS: MRSA (Nasal) PCR NOT DETECTED (Not Detect)
--- NOTE | 2024-06-15 02:58 | PC.NURSE ---
0035 - Arrived from ED via stretcher. Able to stand-pivot transfer to bedside commode. SOB with exertion, audible wheezing. O2 at 3L per home routine, sats in the mid 90's while awake and talking. Able to reposition self into bed, sitting high fowlers related to work of breathing. Patient alert and oriented. Good historian. Oriented to room and routine. Call light in reach.
[2024-06-15 04:41] LABS: Add Manual Diff / Slide Review NO; Basophils Absolute Auto 0 /uL (0-100); Basophils Percent Auto 0.2 % (0-2); Eosinophils Absolute Auto 0 /uL (0-450); Hematocrit 39.6 % (36-46); Hemoglobin 12.5 g/dL (12.0-16.0); Lymphocytes Absolute Auto 400 /uL (1100-4500); Lymphocytes Percent Auto 3.2 % (25-40); Mean Corpuscular HGB Conc 31.6 % (30-36); Mean Corpuscular Hemoglobin 26.2 PG (26-34); Mean Corpuscular Volume 82.8 fL (80-100); Monocytes Absolute Auto 100 /uL (0-900); Monocytes Percent Auto 0.8 % (3-14); Neutrophils Absolute Auto 11000 /uL (1500-7000); Neutrophils Percent Auto 95.8 % (50-75); Platelet Count 232 X10^3/uL (150-400); Red Blood Cell Count 4.79 X10^6/uL (4.0-5.2); Red Cell Distribution Width 19.6 % (11.6-14.8); White Blood Cell Count 11.5 X10^3/uL (4.5-11.0)
[2024-06-15 05:00] LABS: BUN Creatinine Ratio 12.5 (6-22); Blood Urea Nitrogen 14 mg/dL (7-17); Calcium 9.1 mg/dL (8.4-10.2); Carbon Dioxide 24 mmol/L (22-32); Chloride 101 mmol/L (98-107); Estimated Glomerular Filt Rate 56 mL/min (>60); Glucose 269 mg/dL (80-110); HEMOLYSIS < 15 (0-50); Potassium 3.3 mmol/L (3.4-5.1); Sodium 136 mmol/L (137-145)
--- NOTE | 2024-06-15 07:59 | P.PN_ITS ---
Subjective Subjective Interval history: From night doctor: Bernarda Chong, is a 59 y/o F, with complicated PMH including Chronic Severe Systolic CHF, / Ischemic CM, s/p Cor stent and AICD on Entresto, Empagliflozin, Amiodarone, chronic a/c Apixaban, for severe Cardiomyopathy , Moderately severe COPD on home O2 and Home Bipap , HTN, DM 2, Morbid Obesity ( BMI 44) presented to ED with 2 days history of progressive Shortness of breath and wheezing She had been using her inhalers In ED, was tachypneic, not able to speak in full sentences, tachycardiac, afebrile, O2 sats on RA low at 89%, BP 99/56 MAP has been dipping below 65 per ED provider. She was wheezing, given Albuterol neb treatments hourly, also recd Magnesium IV, and Solumedrol 125 mg IV She was started on Bipap and then onwards to AVAPS AB.46/41/76 Sats 96 % on 30 % FiO2 Her Lactate was > 4 ( 4.6) was given 500 mls NS bolus, Bl cx obtained and empirically started on IV abx: Zosyn and Vancomycin WBC 11 K CXR No acute changes, No PNA BNP mild elevated at 570 ( this has been lower than her prior visits : 698 on 05/09/24) Full 30 mls NS bolus therefore not given Her K was low at 2.9, started on K rider 40 m eq IV Was referred to Hospitalist team for ICU admission for close monitoring of her resp status as well as hemodynamics given complicated cardio-pulm history and concern for decompensation. S: S treatments and home than usual. he became short of breath about 2 days ago and has a lot of rhinorrhea and facial congestion and pressure. She denies any fevers, or chills. She has been very short of breath and requiring more breathing Exam Vital Signs (past 8 hours): - 06/15/24 00:00 06/15/24 00:00 06/15/24 00:30 Temperature Pulse Rate 86 88 Respiratory Rate 26 H 25 H Blood Pressure 115/57 L Pulse Oximetry 96 96 Oxygen Delivery Method Oxygen Flow Rate 06/15/24 00:37 06/15/24 00:53 06/15/24 00:53 Temperature 98.9 F Pulse Rate 89 90 Respiratory Rate 21 26 H Blood Pressure 94/51 L 94/51 L Pulse Oximetry 97 97 Oxygen Delivery Method Oxygen Flow Rate 3 06/15/24 00:57 06/15/24 00:57 06/15/24 00:59 Temperature Pulse Rate 85 88 Respiratory Rate 23 24 Blood Pressure 93/51 L Pulse Oximetry 97 97 Oxygen Delivery Method Oxygen Flow Rate 06/15/24 01:00 06/15/24 01:00 06/15/24 01:19 Temperature Pulse Rate 86 84 Respiratory Rate 34 H Blood Pressure 95/50 L 95/50 L Pulse Oximetry 97 Oxygen Delivery Method Oxygen Flow Rate 06/15/24 01:30 06/15/24 01:35 06/15/24 02:00 Temperature Pulse Rate 83 83 Respiratory Rate 22 21 Blood Pressure Pulse Oximetry 96 92 Oxygen Delivery Method Nasal Cannula Oxygen Flow Rate 06/15/24 02:01 06/15/24 02:01 06/15/24 02:30 Temperature Pulse Rate 83 80 Respiratory Rate 22 22 Blood Pressure 131/59 L Pulse Oximetry 92 94 Oxygen Delivery Method Oxygen Flow Rate 06/15/24 03:00 06/15/24 03:00 06/15/24 03:01 Temperature Pulse Rate 79 80 Respiratory Rate 19 21 Blood Pressure 105/54 L 118/58 L Pulse Oximetry 94 94 Oxygen Delivery Method Oxygen Flow Rate 0 06/15/24 03:01 06/15/24 03:30 06/15/24 04:00 Temperature Pulse Rate 79 80 77 Respiratory Rate 19 23 22 Blood Pressure 134/90 Pulse Oximetry 94 91 95 Oxygen Delivery Method Oxygen Flow Rate 0 06/15/24 04:00 06/15/24 04:01 06/15/24 04:01 Temperature Pulse Rate 77 77 Respiratory Rate 21 22 Blood Pressure 134/90 Pulse Oximetry 96 95 Oxygen Delivery Method Oxygen Flow Rate 06/15/24 04:28 06/15/24 04:30 06/15/24 05:00 Temperature Pulse Rate 76 80 Respiratory Rate 23 26 H Blood Pressure Pulse Oximetry 94 92 Oxygen Delivery Method Nasal Cannula Oxygen Flow Rate 06/15/24 05:00 06/15/24 05:09 06/15/24 05:09 Temperature 98.7 F Pulse Rate 82 Respiratory Rate 27 H Blood Pressure 117/58 L Pulse Oximetry Oxygen Delivery Method Oxygen Flow Rate 06/15/24 05:30 06/15/24 06:00 06/15/24 06:01 Temperature Pulse Rate 79 74 Respiratory Rate 25 H 25 H Blood Pressure 110/54 L Pulse Oximetry 97 96 Oxygen Delivery Method Oxygen Flow Rate 06/15/24 06:01 06/15/24 06:30 06/15/24 07:00 Temperature Pulse Rate 73 76 74 Respiratory Rate 23 21 16 Blood Pressure Pulse Oximetry 96 97 93 Oxygen Delivery Method Oxygen Flow Rate 06/15/24 07:01 06/15/24 07:01 06/15/24 07:30 Temperature Pulse Rate 77 74 Respiratory Rate 19 20 Blood Pressure 107/53 L Pulse Oximetry 89 L 96 Oxygen Delivery Method Oxygen Flow Rate Fraction of Inspired Oxygen 30 SaO2/FiO2 Ratio 442 Oxygen Delivery Method Nasal Cannula Oxygen Flow Rate 0 Narrative Exam Narrative: Mild distress, alert and oriented. Fluent speech. M Lungs are notable for diffuse rhonchi and expiratory wheezing in all posterior and anterior holt. She is breathing a relatively normal rate with normal effort. Heart is regular, no murmur gallop or rub. Abdomen is soft, non distended. Extremities are free of edema. Objective Imaging Chest x-ray: Radiologist's impression: IMPRESSION: No acute cardiopulmonary abnormality is seen. Stable cardiomegaly Labs 06/15/24 04:24 06/15/24 04:24 Labs: Laboratory Results - last 24 hr 06/14/24 06/14/24 06/14/24 17:01 18:02 19:14 WBC 11.8 H RBC 4.96 Hgb 13.0 Hct 41.1 MCV 82.9 MCH 26.3 MCHC 31.7 RDW 19.2 H Plt Count 281 Neut % (Auto) 74.5 Lymph % (Auto) 13.9 L [place] % (Auto) 9.6 Eos % (Auto) 0.7 L Baso % (Auto) 1.3 Neut # (Auto) 8800 H Lymph # (Auto) 1600 [place] # (Auto) 1100 H Eos # (Auto) 100 Baso # (Auto) 100 PT 13.9 H INR 1.2 ABG Sample Site Right radial ABG pH 7.46 H ABG pCO2 41.4 ABG pO2 76 L ABG HCO3 30 H ABG Total CO2 29 H ABG O2 Saturation 96 ABG Base Excess 5.3 H Jai Test Positive O2 Delivery Device Bipap FiO2 % 30.0 % Sodium 136 L Potassium 2.9 L Chloride 97 L Carbon Dioxide 29 BUN 12 Creatinine 1.12 H Estimated GFR 56 L BUN/Creatinine Ratio 10.7 Glucose 239 H Hemoglobin A1c Lactate 4.7 H* Calcium 9.1 Magnesium 1.6 Total Bilirubin 0.6 AST 39 H ALT 36 H Alkaline Phosphatase 125 Troponin I 0.029 NT-Pro-B Natriuret Pep 570 H Total Protein 6.9 Albumin 4.1 Globulin 2.8 Albumin/Globulin Ratio 1.5 Procalcitonin 0.121 Nasal Screen MRSA (PCR) SARS-CoV-2 (PCR) Negative Influenza A (RT-PCR) Flu a negative Influenza B (RT-PCR) Flu b negative RSV (PCR) Negative 06/14/24 06/14/24 06/15/24 20:02 23:51 00:55 WBC RBC Hgb Hct MCV MCH MCHC RDW Plt Count Neut % (Auto) Lymph % (Auto) [place] % (Auto) Eos % (Auto) Baso % (Auto) Neut # (Auto) Lymph # (Auto) [place] # (Auto) Eos # (Auto) Baso # (Auto) PT INR ABG Sample Site ABG pH ABG pCO2 ABG pO2 ABG HCO3 ABG Total CO2 ABG O2 Saturation ABG Base Excess Jai Test O2 Delivery Device FiO2 % Sodium Potassium Chloride Carbon Dioxide BUN Creatinine Estimated GFR BUN/Creatinine Ratio Glucose Hemoglobin A1c 7.8 H Lactate 4.6 H* 5.4 H* Calcium Magnesium Total Bilirubin AST ALT Alkaline Phosphatase Troponin I NT-Pro-B Natriuret Pep Total Protein Albumin Globulin Albumin/Globulin Ratio Procalcitonin Nasal Screen MRSA (PCR) Not detected SARS-CoV-2 (PCR) Influenza A (RT-PCR) Influenza B (RT-PCR) RSV (PCR) 06/15/24 04:24 WBC 11.5 H RBC 4.79 Hgb 12.5 Hct 39.6 MCV 82.8 MCH 26.2 MCHC 31.6 RDW 19.6 H Plt Count 232 Neut % (Auto) 95.8 H D Lymph % (Auto) 3.2 L [place] % (Auto) 0.8 L Eos % (Auto) 0.0 L Baso % (Auto) 0.2 Neut # (Auto) 98213 H Lymph # (Auto) 400 L [place] # (Auto) 100 Eos # (Auto) 0 Baso # (Auto) 0 PT INR ABG Sample Site ABG pH ABG pCO2 ABG pO2 ABG HCO3 ABG Total CO2 ABG O2 Saturation ABG Base Excess Jai Test O2 Delivery Device FiO2 % Sodium 136 L Potassium 3.3 L Chloride 101 Carbon Dioxide 24 BUN 14 Creatinine 1.12 H Estimated GFR 56 L BUN/Creatinine Ratio 12.5 Glucose 269 H Hemoglobin A1c Lactate 4.0 H Calcium 9.1 Magnesium Total Bilirubin AST ALT Alkaline Phosphatase Troponin I NT-Pro-B Natriuret Pep Total Protein Albumin Globulin Albumin/Globulin Ratio Procalcitonin Nasal Screen MRSA (PCR) SARS-CoV-2 (PCR) Influenza A (RT-PCR) Influenza B (RT-PCR) RSV (PCR) [facility] Medical History Cardiac arrhythmia Morbid obesity due to excess calories Elevated brain natriuretic peptide (BNP) level Acute and chronic respiratory failure with hypoxia Chronic anticoagulation Cervical spondylosis Neck pain Cervical radiculopathy CAD (coronary artery disease) Congestive heart failure COPD (chronic obstructive pulmonary disease) Surgical History AICD (automatic cardioverter/defibrillator) present H/O heart artery stent Social History household members: spouse and none lives independently: Yes Smoking Status: Current some day smoker alcohol intake: current Assessment & Plan Assessment & Plan narrative: 1. Acute exacerbation of chronic obstructive pulmonary disease, present on admission and active. Patient has severe COPD , on supp O2 and Bipap use at home. Etiology for exacerbation unclear/ Viral swabs for URI negative , including COVID, Flu, RSV Continue 1-2 hourly Albuterol Inh treatments Continue Solumedrol 60 mg IV q 6 hrs 2. Acute and chronic respiratory failure with hypoxia, present on admission and active. See above plan 3. Elevated lactic acid level, improving. Probably sec to hypotensive event related to Hypoxia sec to COPD exacerbation No Fever or Leukocytosis/ CXR : no PNA However given Elevated Lactate , > 4, shall continue with empiric IV abx overnight Repeat Lactate 4 hrs after ED lactate lab draw Continue Zosyn 4. Chronic systolic heart failure, active. as noted above / has severe chronic Systolic CHF LVEF 25% Monitor Intake and Output Daily weight Continue Entresto, Empagloflozin May hold Lasix given SBP borderline low Echo in the morning to evaluate LVEF for any changes / ? Pulm HTN 5. Hypokalemia due to excessive renal loss of potassium, improving. Likely sec to large dose of Lasix at home and likely decreased oral intake Hold Lasix tonight Started on K rider in ED Monitor BMP / Electrolytes after Potassium Infusion completed Check Mag and replenish prn 6. Chronic anticoagulation, stable. On Chronic A/C / Apixaban , sec to Severe Cardiomyopathy/ h/o Cardiac arrythmias, been on Amiodarone and Mexilitine , has AICD Has no active Bleeding, HH stable Shall give evening dose of Apixaban, and continue bid per home dose Hold Amiodarone given borderline low SBP 7. 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 Hyperglycemia, active. No h/o DM , Random Hyperglycemia may be sec to stress of acute exacerbation of COPD Check Hb A1C, check fasting glucose. ACHS accu check , Reg Insulin per SS PLAN: -continue bronchodilators and steroids. -monitor glucose. -monitor volume status and resume oral Lasix. -monitor potassium and replace as needed. -continue anticoagulation. GENET: 06/17, Home. She is expected to require 2 midnights of hospital care, this supports inpatient status. Time-Based Coding :: [TOTAL MINUTES] spent with patient and on the chart (including review of chart, obtaining history, exam, reviewing outside data, placing orders, documenting exam and treatment plan, and counseling patient) on [DATE].
[2024-06-15] MEDS: POTASSIUM CHLORIDE 20 MEQ TAB 40 MEQ PO ×2 (09:41→13:15)
[2024-06-15] MEDS: cefTRIAXone 2,000 MG in SODIUM CHLORIDE 0.9% 100 ML 200 MG IV (10:43)
--- NOTE | 2024-06-15 10:49 | PT-IP ANOTE ---
PT consult received and PT checks on pt who is getting US. Pt with dyspnea at rest. Spoke with pt and nsg and will initiate PT consult next date.
[2024-06-15] MEDS: OXYCODONE/ACETAMINOPHEN 5/325 TABLET 2 TAB PO ×3 (10:56→23:55)
[2024-06-15] MEDS: FLUTICASONE 120 SPRAY/16 GM SPRAY.SUSP NASAL ×2 (11:41→20:17)
[2024-06-15] MEDS: PANTOPRAZOLE DR 40 MG TABLET PO ×2 (11:41→20:10)
[2024-06-15] MEDS: ASPIRIN EC 81 MG TABLET PO (11:41)
[2024-06-15] MEDS: AMIODARONE 200 MG TABLET 100 MG PO (11:42)
[2024-06-15] MEDS: APIXABAN 5 MG TABLET PO ×2 (11:42→20:10)
[2024-06-15] MEDS: FUROSEMIDE 40 MG TABLET 80 MG PO (11:42)
[2024-06-15] MEDS: AZITHROMYCIN 500 MG in DEXTROSE 5% IN WATER 250 ML 250 MG IV (11:43)
[2024-06-15] MEDS: SACUBITRIL VALSARTAN 1 EACH PO ×2 (11:58→20:11)
[2024-06-15] MEDS: MEXILETINE 150 MG 150 EACH PO ×2 (11:59→20:12)
--- NOTE | 2024-06-15 13:05 | CM.DANOTE ---
Patient is a 59 yo female who was admitted INPT Status on 06/14/24 for CHF/COPD/Resp Failure. EMR was reviewed. Per , pt with chronic CHF and COPD and recently admitted for similar last month in May and able to wean to NC O2 today from AVAP/bipap but not medically stable to d/c home yet today and likely another couple days of IV-Abx and tx. 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 Per chart, lives in [place] with spouse and has local supportive Granddtr/ANUPAMA Ponce and is on 3L O2 at home and has home bipap. WELDING MACHINE OPERATOR AR[employer] briefly met with pt bedside and explained role and pt confirms she felt things were going well using her walker and home O2 and working with [facility] after her discharge in May to home and preference is to d/c home again when stable. Pt states her Granddtr likely can transport at d/c and pt would be agreeable to continuing [facility]. SW left msg for [facility] to confirm pt is open to services and if new F2F and orders needed vs Resumption Orders. Plan: SW to follow for pt progress to confirm safe d/c home with family and resuming [facility] at discharge. GEORGE Mcclain Discharge Planning/Care Management CM Discharge Assessment Start: 06/15/24 13:03 Freq: Status: Active Protocol: Document 06/15/24 13:03 BF (Rec: 06/15/24 13:05 [id number]) Discharge Planning Assessment Assigned Curriculum Assistant Principal GEORGE Eng DPOA/Assigned Designee Name spouse Scottie Advance Directives? Yes Advance Directives on File No: Purple folder in the car History Provided By Patient,Medical Record Has Patient been admitted in last 30 Yes days? Comment Recently discharged home in May 2024 with [facility] Prior Living Arrangements RV Household Members spouse Type of transporation used prior to Relies on Others admit Independent with ADL's Yes: mostly Is patient alert and oriented? Yes Needs Assistance With Managing Medications,Home Chores / Shopping Caregiver for Another No Community Services used prior to Physical Therapy,Home Health admission: Nurse Comment Open with [facility] D[facility] Already Rented / Owned FWW / Walker,Cane Patient/Family Preference Home with Home Health Barriers to Discharge No Comment hx of [facility], waiting to confirm still open Discharge Plan Home with Home Health Community Services Physical Therapy,Home Health Nurse Transportation Arrangement Likely spouse or family to provide transport Referrals Initiated Home Health Additional Comment potential need for resumption orders with [facility] Whiteboard Updated in Patient Room with Yes name and ext. # of Curriculum Assistant Principal Review Status In Process Please Provide Date Initial DC 06/15/24 Assessment Was Performed Next Review Type Continued Stay Review
[2024-06-15] MEDS: diazePAM 5 MG TABLET PO (17:34)
[2024-06-15] MEDS: ALBUTEROL 2.5 MG/3 ML NEB (ADULT) INH ×2 (20:10→21:44)
[2024-06-15] MEDS: OXYCODONE IR 5 MG TABLET PO (20:11)
[2024-06-15] MEDS: SODIUM CHLORIDE 0.9% FLUSH 10 ML IV (20:12)
[2024-06-15] MEDS: MONTELUKAST 10 MG TABLET PO (20:17)
[2024-06-15] MEDS: INSULIN LISPRO 100 UNIT/ML 3ML VIAL SUBCUT (20:43)
[2024-06-15] MEDS: LORazepam 2 MG/ML INJ 1 MG IV (22:36)
[2024-06-16] VITALS (54 sets, daily range): BP systolic 103–117; BP diastolic 55–66; PULSE 46–98; RESP 16–26; TEMP 30.1–36.5; O2SAT 90–99
[2024-06-16 05:16] LABS: BUN Creatinine Ratio 18.8 (6-22); Blood Urea Nitrogen 24 mg/dL (7-17); Carbon Dioxide 27 mmol/L (22-32); Chloride 97 mmol/L (98-107); Estimated Glomerular Filt Rate 48 mL/min (>60); Glucose 294 mg/dL (80-110); HEMOLYSIS 40 (0-50); Potassium 3.7 mmol/L (3.4-5.1); Sodium 133 mmol/L (137-145)
[2024-06-16] MEDS: methylPREDNISolone 125 MG/2 ML VIAL 60 MG IV ×3 (06:02→20:25)
[2024-06-16] MEDS: BUDESONIDE 0.5 MG/2 ML NEB INH ×2 (06:03→19:19)
[2024-06-16] MEDS: ALBUTEROL 2.5 MG/3 ML NEB (ADULT) INH ×4 (06:03→19:19)
[2024-06-16] MEDS: INSULIN LISPRO 100 UNIT/ML 3ML VIAL SUBCUT ×5 (08:11→20:28)
[2024-06-16] MEDS: FLUTICASONE 120 SPRAY/16 GM SPRAY.SUSP NASAL ×2 (08:47→22:09)
[2024-06-16] MEDS: SODIUM CHLORIDE 0.9% FLUSH 10 ML IV ×2 (08:47→20:25)
[2024-06-16] MEDS: MEXILETINE 150 MG 150 EACH PO ×2 (08:48→20:25)
[2024-06-16] MEDS: PANTOPRAZOLE DR 40 MG TABLET PO ×2 (08:48→20:25)
[2024-06-16] MEDS: FUROSEMIDE 40 MG TABLET 80 MG PO (08:48)
[2024-06-16] MEDS: ASPIRIN EC 81 MG TABLET PO (08:48)
[2024-06-16] MEDS: APIXABAN 5 MG TABLET PO ×2 (08:48→20:25)
[2024-06-16] MEDS: AMIODARONE 200 MG TABLET 100 MG PO (08:48)
[2024-06-16] MEDS: SACUBITRIL VALSARTAN 1 EACH PO ×2 (08:49→20:25)
[2024-06-16 09:57] LABS: Clostridium Difficile Tox PCR Negative for C. diff (Negative)
[2024-06-16] MEDS: AZITHROMYCIN 500 MG in DEXTROSE 5% IN WATER 250 ML 250 MG IV (10:07)
[2024-06-16] MEDS: cefTRIAXone 2,000 MG in SODIUM CHLORIDE 0.9% 100 ML 200 MG IV (10:07)
--- NOTE | 2024-06-16 11:30 | PT-IP ANOTE ---
Pt discussed in rounds and doctor reports pt con't with trouble breathing today. PT checks in on pt who is on O2 with face shield and pt reports ongoing troubles with breathing today and she would like to wait one more day before skilled PT assessment. Will check on pt again next date for eval and if she remains unable to participate d/t medical status, consider d/c PT order.
[2024-06-16 12:29] LABS: Glucose 425 mg/dL (80-110)
[2024-06-16] MEDS: LOPERAMIDE 2 MG CAPSULE PO ×2 (12:36→15:44)
[2024-06-16] MEDS: INSULIN GLARGINE 100 UNIT/ML 3ML PEN 15 UNIT SUBCUT (14:34)
[2024-06-16] MEDS: OXYCODONE/ACETAMINOPHEN 5/325 TABLET 2 TAB PO (15:39)
--- NOTE | 2024-06-16 15:53 | CM.DPC ---
DCP COnt: Per MD, pt looks somewhat worse today and on 3LO2 and getting breathing treatments and CDiff pending due to multiple loose stools overnight. Per PT, pt refused today due to feeling so poorly. Eval pending for tomorrow Tu. [facility] confirmed pt is still open to service with them and will just need Resumption Orders at d/c at this time. GEORGE Mcclain
[2024-06-16] MEDS: diazePAM 5 MG TABLET PO (16:58)
--- NOTE | 2024-06-16 17:40 | PM.PN.1 ---
Subjective Subjective Interval history: Continues to feel short of breath, has severe sinus pressure today. Exam Vital Signs (past 8 hours): - 06/16/24 09:54 06/16/24 10:00 06/16/24 10:00 Temperature 97.1 F L Pulse Rate 90 82 Respiratory Rate 20 Blood Pressure Pulse Oximetry 93 97 Oxygen Delivery Method Oximask Oxygen Flow Rate 3 06/16/24 10:30 06/16/24 11:00 06/16/24 11:30 Temperature Pulse Rate 67 89 90 Respiratory Rate Blood Pressure Pulse Oximetry 93 97 98 Oxygen Delivery Method Oxygen Flow Rate 06/16/24 12:00 06/16/24 12:04 06/16/24 12:04 Temperature Pulse Rate 59 L 59 L Respiratory Rate Blood Pressure 103/57 L Pulse Oximetry 93 95 Oxygen Delivery Method Oxygen Flow Rate 06/16/24 14:09 Temperature Pulse Rate 83 Respiratory Rate 20 Blood Pressure Pulse Oximetry 94 Oxygen Delivery Method Oximask Oxygen Flow Rate 3 Fraction of Inspired Oxygen 36 SaO2/FiO2 Ratio 261 Oxygen Delivery Method Oximask Oxygen Flow Rate 3 Narrative Exam Narrative: Mild distress, alert and oriented. Fluent speech. M Lungs are notable for bibasilar rhonchi and inspiratory wheezing in all posterior and anterior holt. She is breathing a relatively normal rate with normal effort. Heart is regular, no murmur gallop or rub. Abdomen is soft, non distended. Extremities are free of edema. Objective Labs 06/15/24 04:24 06/16/24 12:12 Labs: Laboratory Results - last 24 hr 06/16/24 06/16/24 06/16/24 04:26 09:00 12:12 Sodium 133 L Potassium 3.7 Chloride 97 L Carbon Dioxide 27 BUN 24 H Creatinine 1.28 H Estimated GFR 48 L BUN/Creatinine Ratio 18.8 Glucose 294 H 425 H D Calcium 9.0 C. difficile Tox (PCR) Negative for c. diff [facility] Medical History Cardiac arrhythmia Morbid obesity due to excess calories Elevated brain natriuretic peptide (BNP) level Acute and chronic respiratory failure with hypoxia Chronic anticoagulation Cervical spondylosis Neck pain Cervical radiculopathy CAD (coronary artery disease) Congestive heart failure COPD (chronic obstructive pulmonary disease) Surgical History AICD (automatic cardioverter/defibrillator) present H/O heart artery stent Social History household members: spouse lives independently: Yes Smoking Status: Current some day smoker alcohol intake: current Assessment & Plan Assessment & Plan narrative: 1. Acute exacerbation of chronic obstructive pulmonary disease, present on admission and active. Patient has severe COPD , on supp O2 and Bipap use at home. Etiology for exacerbation unclear/ Viral swabs for URI negative , including COVID, Flu, RSV Continue 1-2 hourly Albuterol Inh treatments Continue Solumedrol 60 mg IV to reduce to q8 hr today change to oral prednisone with only improvement in symptoms, typically she takes some time and if transitioned too early in the past will regress with regards to symptoms. 2. Acute and chronic respiratory failure with hypoxia, present on admission and active. See above plan 3. Elevated lactic acid level, improving. Probably sec to hypotensive event related to Hypoxia sec to COPD exacerbation Continue Zosyn 4. Chronic systolic heart failure, active. as noted above / has severe chronic Systolic CHF LVEF 25% Monitor Intake and Output Daily weight Continue Entresto, Empagloflozin 5. Hypokalemia due to excessive renal loss of potassium, improving. Likely sec to large dose of Lasix at home and likely decreased oral intake Hold Lasix tonight Started on K rider in ED Monitor BMP / Electrolytes after Potassium Infusion completed Check Mag and replenish prn 6. Chronic anticoagulation, stable. On Chronic A/C / Apixaban , sec to Severe Cardiomyopathy/ h/o Cardiac arrythmias, been on Amiodarone and Mexilitine , has AICD Has no active Bleeding, HH stable Shall give evening dose of Apixaban, and continue bid per home dose Hold Amiodarone given borderline low SBP 7. 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 Hyperglycemia, active. Starting on lantus this evening continue with sliding scale this happens with most of her admissions requiring steroids. PLAN: -continue bronchodilators and steroids. -monitor glucose, started -monitor volume status and resume oral Lasix. -monitor potassium and replace as needed. -continue anticoagulation. GENET: 1-2 more days in the hospital, likely to discharge home when improved symptomatically. She is expected to require 2 midnights of hospital care, this supports inpatient status. Time-Based Coding :: [TOTAL MINUTES] spent with patient and on the chart (including review of chart, obtaining history, exam, reviewing outside data, placing orders, documenting exam and treatment plan, and counseling patient) on [DATE].
--- NOTE | 2024-06-16 18:23 | PC.NURSE ---
pt's fingersticks have been elevated and changes were made with her insulin; she was started on lantus and scheduled lispro in addition to her sliding scale; she became very anxious this afternoon and was given a po dose of valium; she was also medicated w/ 2 percocet for c/o severe headache; pt has been having diarrhea, which she was started on imodium today and she received 2 doses
[2024-06-16] MEDS: MONTELUKAST 10 MG TABLET PO (20:25)
[2024-06-16] MEDS: OXYCODONE IR 5 MG TABLET PO (20:29)
[2024-06-17] VITALS (35 sets, daily range): BP systolic 107–140; BP diastolic 53–74; PULSE 45–106; RESP 20–24; TEMP 36.1–36.7; O2SAT 86–99
[2024-06-17] MEDS: OXYCODONE/ACETAMINOPHEN 5/325 TABLET 2 TAB PO ×3 (01:57→21:06)
[2024-06-17] MEDS: diazePAM 5 MG TABLET PO ×3 (01:58→19:45)
[2024-06-17] MEDS: diphenhydrAMINE 25 MG TABLET 50 MG PO ×2 (02:50→19:46)
[2024-06-17] MEDS: methylPREDNISolone 125 MG/2 ML VIAL 60 MG IV ×3 (05:30→19:45)
--- NOTE | 2024-06-17 06:08 | PC.NURSE ---
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
[2024-06-17] MEDS: SACUBITRIL VALSARTAN 1 EACH PO ×2 (09:41→19:49)
[2024-06-17] MEDS: APIXABAN 5 MG TABLET PO ×2 (09:42→19:46)
[2024-06-17] MEDS: PANTOPRAZOLE DR 40 MG TABLET PO ×2 (09:42→19:46)
[2024-06-17] MEDS: ASPIRIN EC 81 MG TABLET PO (09:42)
[2024-06-17] MEDS: MEXILETINE 150 MG 150 EACH PO ×2 (09:42→19:49)
[2024-06-17] MEDS: NYSTATIN POWDER 15GM 1 APPLIC TOP (09:42)
[2024-06-17] MEDS: FUROSEMIDE 40 MG TABLET 80 MG PO (09:42)
[2024-06-17] MEDS: AMIODARONE 200 MG TABLET 100 MG PO (09:43)
[2024-06-17] MEDS: INSULIN LISPRO 100 UNIT/ML 3ML VIAL SUBCUT ×6 (09:44→20:59)
[2024-06-17] MEDS: INSULIN GLARGINE 100 UNIT/ML 3ML PEN 20 UNIT SUBCUT (09:45)
[2024-06-17] MEDS: SODIUM CHLORIDE 0.9% FLUSH 10 ML IV ×2 (09:45→19:45)
[2024-06-17] MEDS: FLUTICASONE 120 SPRAY/16 GM SPRAY.SUSP NASAL ×2 (09:45→19:47)
[2024-06-17] MEDS: ALBUTEROL 2.5 MG/3 ML NEB (ADULT) INH ×5 (10:11→22:16)
[2024-06-17] MEDS: LOPERAMIDE 2 MG CAPSULE PO (10:34)
[2024-06-17] MEDS: AZITHROMYCIN 500 MG in DEXTROSE 5% IN WATER 250 ML 250 MG IV (10:35)
[2024-06-17] MEDS: cefTRIAXone 2,000 MG in SODIUM CHLORIDE 0.9% 100 ML 200 MG IV (10:36)
--- NOTE | 2024-06-17 10:45 | PT.IIE ---
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 (06/14/24) Surgical History (Last Reviewed 06/15/24 @ 08:00 by Jai Thornton MD) AICD (automatic cardioverter/defibrillator) present H/O heart artery stent Medical History (Last Reviewed 06/15/24 @ 08:00 by Jai Thornton MD) Acute and chronic respiratory failure with hypoxia CAD (coronary artery disease) Cardiac arrhythmia Cervical radiculopathy Cervical spondylosis Chronic anticoagulation Congestive heart failure COPD (chronic obstructive pulmonary disease) Elevated brain natriuretic peptide (BNP) level Morbid obesity due to excess calories Neck pain Physical Therapy Inpatient Evaluation/Re-Eval M1 PT/OT-IP Prior Functional Status Start: 06/15/24 10:24 Freq: NEEDED Status: Active Protocol: Document 06/17/24 10:45 AB (Rec: 06/17/24 12:57 AB [id number]) Medical Review Prior Functional Status Medical History Reviewed Yes Communication able to make needs known Mobility and Gait pt stated that he was modified independent with all mobilities and ambulation without AD but hold on to jay inside her RV; uses a power w/c for outdoor mobility Social History Household Members spouse Living Arrangements RV Number of Floors (Floors) Two Floors Number of Stairs To Enter/Railing? 5 steps R rail to enter 3 steps without rail but B jay to get to bathroom 1 step from kitchen to living room Home Environment Standard Height Toilet,Walk in Shower Home Equipment Power Wheelchair/Scooter, Shower Seat without Backrest, Hand Held Shower,Grab Bars In Shower Additional Social History Comment pt stated that spouse has limited ability to assist her; granddaughter comes in ~ 3-4x /wk to assist her M2 PT-IP Current Condition Start: 06/15/24 10:24 Freq: NEEDED Status: Active Protocol: Document 06/17/24 10:45 AB (Rec: 06/17/24 12:57 AB [id number]) Physical Therapy Current Condition Current Condition Evaluation Date 06/17/24 Treatment Diagnosis COPD exacerbation; difficulty in walking Onset Date 06/14/24 M3 PT-IP Subjective Start: 06/15/24 10:24 Freq: NEEDED Status: Active Protocol: Document 06/17/24 10:45 AB (Rec: 06/17/24 12:57 AB [id number]) Subjective Physical Therapy Visit Type Type Initial Evaluation Visit Start Time 10:45 Visit Stop Time 11:05 Number of COMPUTER OPERATIONS ANALYST Visits 0 Physical Therapy Visit Comments Patient Comments agreeable to do PT M4 PT-IP Mobility and Gait Start: 06/15/24 10:24 Freq: NEEDED Status: Active Protocol: Document 06/17/24 10:45 AB (Rec: 06/17/24 12:57 AB [id number]) PT-Bed Mobility Assessment Supine to Sit Supine to Sit Independent Sit to Supine Sit to Supine Independent PT-Transfer Assessment Sit to and From Stand Sit to and from Stand Standby Assistance,1 Person Assistance,Use of Upper Extremities Equipment Transfer Assistive Device Gait Belt,Front Wheeled Walker Orthotic/Prosthetic Devices or Brace: No Transfer Ability Level of Assist Standby Assistance,Contact Guard Assistance Comments Mobility Comments pt in bed and sat up mod I. obtained PLOF and home set up. O2 sat: 90-91% with 3L/min O2. (+) SOB. completed sit to stand SBA and ambulated in room ~ 35 ft using FWW initially only requiring CGA but midway of ambulation needing min A due to SOB with increase unsteadiness during ambulation. pt sat on EOB. cued for PLB. O2 sat: 84% needed ~ 2 min to recover to 88%. pt lay back in bed I. able to position self in bed and long sat on bed. call light and table next to pt. informed nurse regarding O2 sat and assistance needed Gait Assessment Gait Gait Assistance Required: Contact Guard Assist,Minimum Assistance,1 Person Assist Distance (Feet) 35 Able to Maintain Weight Bearing Status Yes During Gait Assistive Devices Assistive Device Gait Belt,Front Wheeled Walker Orthotic/Prosthetic Devices or Brace: No Gait Deviations General Gait Pattern Decreased Stride Length, Decreased Feet Clearance,Step- to Gait Factors Limiting Gait Function Factors Limiting Gait Function Decreased Activity Tolerance, Decreased Strength,Limited Range of Motion,Poor Safety Awareness,Respiratory Distress PT-Balance Assessment Sitting Balance and Reactions Static Sitting Balance Ability Normal Dynamic Sitting Balance Ability Normal Standing Balance and Reactions Static Standing Balance Ability Good Dynamic Standing Balance Ability Fair Device Used FWW M5 PT-IP Objective Assessments Start: 06/15/24 10:24 Freq: NEEDED Status: Active Protocol: Document 06/17/24 10:45 AB (Rec: 06/17/24 12:57 AB [id number]) Orientation Orientation/Cognition Level of Alertness Alert Orientation Name,Place,Situation Language Function Ability No Deficits Noted Safety Awareness Decreased Safety Awareness Memory Description No Deficits Noted Gross Range of Motion Lower Extremity ROM Assessment Within Functional Limits Strength Lower Extremity Strength Assessment Within Functional Limits Muscle Tone Muscle Tone WNL Yes M6 PT-IP Treatment Start: 06/15/24 10:24 Freq: NEEDED Status: Active Protocol: Document 06/17/24 10:45 AB (Rec: 06/17/24 12:57 AB [id number]) Physical Therapy Treatment Education Education Provided Safety M7 PT-IP Assessment and Plan Start: 06/15/24 10:24 Freq: NEEDED Status: Active Protocol: Document 06/17/24 10:45 AB (Rec: 06/17/24 12:57 AB [id number]) PT Summary Assessment and Plan Potential Rehabilitation Potential Fair Status of Condition at Evaluation Unstable Summary Impairments Strength,Balance,Transfers, Gait,Activity Tolerance Assessment Summary pt is a 59 y/o F who is admitted for COPD exacerbation . pt is modified independent with bed mobility, CGA to min A for transfers/ambulation using FWW with increase unsteadiness with distance of walking. (+) SOB with O2 sat decrease to 84% after ambulation with 3L/min O2. will continue to assess progress. Goals Transfer Goal Independent,Front Wheeled Walker Gait Goal Independent,Front Wheel Walker Gait Distance 100 Other Goals up/down 5 steps R rail SBA up/down 3 steps B jay SBA Days to Meet Goals 10 Frequency of Treatment Frequency Of Treatment Once a Day Treatment Plan Physical Therapy Treatment Plan Transfer Training,Gait Training,Therapeutic Exercise, Balance Retraining,Discharge Planning,Neuromuscular Re-ed, Coordination Retraining Precautions Other Precautions O2 sat Recommendations To Nursing Amount of Assist Needed 1 Person Assist Discharge Recommendations PT Discharge Recommendations Home with Assistance,Home Health,Outpatient PT Other Discharge Recommendations may benefi from cardiopulmonary rehab Transportation Needs at Discharge Private Vehicle
--- NOTE | 2024-06-17 14:24 | DIET.CONS ---
Dietary Consultation Note Admission Date: 06/14/2024 21:24 Assessment: 59 y F admitted for COPD exacerbation. Nutrition screened for MNA. EMR reviewed. Weight is stable, recorded PO intakes are 100%. Per hospitalist in rounds, pt adamant on having a regular diet, not carb consistent. Pt often ordering 2-3 regular sodas on regular diet. A1c 7.8% on 06/14/24. Ht: 160.02 cm Wt: 110.5 kg BMI: 42.5 UBW: 109-113.5 kg throughout 2023, 111.584 kg on 05/09/24 Last BM: 06/17/24 (06/17/24 11:23) MNA: 10 Talat Score: 20 Diet: 06/17/24 Lunch General (Regular) Diet Diet Modifications: Food Texture: Level 7 - Regular Liquid Consistency: Level 0 - Thin Nutrition Percent Meal Consumed 100% 06/17/24 09:00 Percent Meal Consumed 100% 06/16/24 12:52 Percent Meal Consumed 100% 06/16/24 11:29 Percent Meal Consumed 100% 06/16/24 10:00 Labs: RBC 4.79 X10^6/uL (4.0-5.2) 06/15/24 04:24 Hgb 12.5 g/dL (12.0-16.0) 06/15/24 04:24 Hct 39.6 % (36-46) 06/15/24 04:24 Creatinine 1.28 mg/dL (0.52-1.04) H 06/16/24 04:26 Hemoglobin A1c 7.8 % (4.0-6.0) H 06/14/24 23:51 Lactate 4.0 mmol/L (0.7-2.1) H 06/15/24 04:24 NT-Pro-B Natriuret Pep 570 pg/mL (<125) H 06/14/24 18:02 Nutrition Diagnosis: Altered nutrition related lab values r/t endocrine dysfunction and medication aeb A1c% 7.8, BG >200 Interventions: Pt not wanting therapeutic diet, hospitalist changed to regular. Pharmacy to adjust insulin accordingly. Monitoring/Evaluations: BG, PO intakes Electronically Signed by: Kya Gordon 06/17/24 14:24 Clinical Dietitian [address] [id number]
--- NOTE | 2024-06-17 14:43 | PM.PN.1 ---
Subjective Subjective Interval history: Continues to feel short of breath, but is improving slightly this morning. Less wheezing and tightness today. Exam Vital Signs (past 8 hours): - 06/17/24 07:00 06/17/24 07:30 06/17/24 08:00 Pulse Rate 52 L 48 L 47 L Blood Pressure Pulse Oximetry 92 94 92 Oxygen Delivery Method Oxygen Flow Rate Fraction of Inspired Oxygen 06/17/24 08:30 06/17/24 09:00 06/17/24 09:30 Pulse Rate 61 45 L 67 Blood Pressure Pulse Oximetry 99 98 96 Oxygen Delivery Method Oxygen Flow Rate Fraction of Inspired Oxygen 06/17/24 09:30 06/17/24 10:00 06/17/24 10:13 Pulse Rate 65 Blood Pressure Pulse Oximetry 95 94 Oxygen Delivery Method Oximask Oximask Oxygen Flow Rate 3 Fraction of Inspired Oxygen 32 06/17/24 10:16 06/17/24 10:30 06/17/24 11:00 Pulse Rate 85 84 Blood Pressure Pulse Oximetry 94 99 86 L Oxygen Delivery Method Oximask Oxygen Flow Rate 3 Fraction of Inspired Oxygen 32 06/17/24 11:30 06/17/24 12:03 06/17/24 12:11 Pulse Rate 80 65 Blood Pressure 140/74 Pulse Oximetry 96 95 Oxygen Delivery Method Oxygen Flow Rate Fraction of Inspired Oxygen 06/17/24 12:11 Pulse Rate 72 Blood Pressure Pulse Oximetry 97 Oxygen Delivery Method Oxygen Flow Rate Fraction of Inspired Oxygen Fraction of Inspired Oxygen 32 SaO2/FiO2 Ratio 293 Oxygen Delivery Method Oximask Oxygen Flow Rate 3 Narrative Exam Narrative: Mild distress, alert and oriented. Fluent speech. Lungs with improved bibasilar rhonchi today. Though continued inspiratory wheezing in all posterior and anterior holt. She is breathing a relatively normal rate with normal effort. Heart is regular, no murmur gallop or rub. Abdomen is soft, non distended. Extremities are free of edema. Objective Labs 06/15/24 04:24 06/16/24 12:12 [facility] Medical History Cardiac arrhythmia Morbid obesity due to excess calories Elevated brain natriuretic peptide (BNP) level Acute and chronic respiratory failure with hypoxia Chronic anticoagulation Cervical spondylosis Neck pain Cervical radiculopathy CAD (coronary artery disease) Congestive heart failure COPD (chronic obstructive pulmonary disease) Surgical History AICD (automatic cardioverter/defibrillator) present H/O heart artery stent Social History household members: spouse lives independently: Yes Smoking Status: Current some day smoker alcohol intake: current Assessment & Plan Assessment & Plan narrative: 1. Acute exacerbation of chronic obstructive pulmonary disease, present on admission and active. Patient has severe COPD , on supp O2 and Bipap use at home. Etiology for exacerbation unclear/ Viral swabs for URI negative , including COVID, Flu, RSV Continue prn Albuterol Inh treatments Continue Solumedrol 60 mg IV reduced /10 to q8. change to oral prednisone with only improvement in symptoms, typically she takes some time and if transitioned too early in the past will regress with regards to symptoms. 2. Acute and chronic respiratory failure with hypoxia, present on admission and active. See above plan 3. Elevated lactic acid level, improving. Probably sec to hypotensive event related to Hypoxia sec to COPD exacerbation Continue Zosyn 4. Chronic systolic heart failure, active. as noted above / has severe chronic Systolic CHF LVEF 25% Monitor Intake and Output Daily weight Continue Entresto, Empagloflozin, and home furosemide 5. Hypokalemia due to excessive renal loss of potassium, improving. Likely sec to large dose of Lasix at home and likely decreased oral intake now improved. resumed home furosemide. 6. Chronic anticoagulation, stable. On Chronic A/C / Apixaban , sec to Severe Cardiomyopathy/ h/o Cardiac arrythmias, been on Amiodarone and Mexilitine , has AICD Has no active Bleeding, HH stable Shall give evening dose of Apixaban, and continue bid per home dose Hold Amiodarone given borderline low SBP 7. Morbid obesity due to excess calories, stable. The patient is at much higher risk for medical and surgical complications because of their obesity. This increases the difficulty and complexity of medical and surgical interventions and increases the chances of poor outcomes such as morbidity and mortality. 8. Hyperglycemia, active. Starting on lantus this evening continue with sliding scale this happens with most of her admissions requiring steroids. patient gets very upset and threatens to leave if her diet is anything other than general while admitted here. PLAN: -continue bronchodilators and steroids. -monitor glucose, started -monitor volume status and resume oral Lasix. -monitor potassium and replace as needed. -continue anticoagulation. GENET: 1-2 more days in the hospital, likely to discharge home when improved symptomatically. She is expected to require 2 midnights of hospital care, this supports inpatient status. Time-Based Coding :: [TOTAL MINUTES] spent with patient and on the chart (including review of chart, obtaining history, exam, reviewing outside data, placing orders, documenting exam and treatment plan, and counseling patient) on [DATE].
[2024-06-17] MEDS: ONDANSETRON 4 MG/2 ML INJ IV (18:05)
[2024-06-17] MEDS: BUDESONIDE 0.5 MG/2 ML NEB INH (18:08)
--- NOTE | 2024-06-17 18:16 | PC.NURSE ---
Addendum entered by Chaya Avelar R.N. 06/17/24 18:57: PCT attempted to obtain pt weight. Pt declining, stating, What, you're telling me to lose weight? Education provided to pt on purpose of daily weights. Pt continues to decline. Addendum entered by Chaya Avelar R.N. 06/17/24 18:24: Pt reported small bump on midback. Site is small pustula-like area with erythema the size of a dime. Covered with an allyven per patient request. Original Note: Pt tearful at times, states she is depressed, fearful to go home due to lack of heating facilities. I live in a tin box, the voltage isn't strong enough for a space heater. Social work and care management aware of living situation. Stated her call light was on for 20 mins without a nursing staff member coming in, that during this she vomited on the bathroom floor and cleaned it up herself. Reviewed with pt that call light was not on at this time and verified at bedside that call light was functioning. Pt re-educated on use of the call light. Pt demonstrated use of call light to ensure education was adequate and the technology is functional, pt satisfied with the demonstration. Nausea treated as ordered (See MAR). Care ongoing.
[2024-06-17] MEDS: OXYCODONE IR 5 MG TABLET PO (19:45)
[2024-06-17] MEDS: MONTELUKAST 10 MG TABLET PO (19:46)
[2024-06-18] VITALS (10 sets, daily range): BP systolic 112–128; BP diastolic 55–71; PULSE 68–83; RESP 17–22; TEMP 36.7–36.8; O2SAT 91–98
[2024-06-18] MEDS: ONDANSETRON 4 MG/2 ML INJ IV ×2 (01:02→12:41)
[2024-06-18] MEDS: diphenhydrAMINE 25 MG TABLET 50 MG PO ×2 (01:42→16:58)
[2024-06-18] MEDS: methylPREDNISolone 125 MG/2 ML VIAL 60 MG IV ×3 (05:04→20:55)
--- NOTE | 2024-06-18 06:20 | PC.NURSE ---
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
[2024-06-18] MEDS: ALBUTEROL 2.5 MG/3 ML NEB (ADULT) INH ×6 (06:52→23:48)
--- NOTE | 2024-06-18 08:01 | P.PN_ITS ---
Subjective Subjective Interval history: S: She was still short of breath and having a lot of nasal congestion. She was more blocked up on the right side of her face. She was still wheezing and very dyspneic when moving. Exam Vital Signs (past 8 hours): - 06/18/24 04:00 06/18/24 06:52 Temperature 98.2 F Pulse Rate 74 68 Respiratory Rate 17 22 Blood Pressure 112/55 L Pulse Oximetry 98 97 Oxygen Delivery Method Oximask Oxygen Flow Rate 3 Fraction of Inspired Oxygen 32 SaO2/FiO2 Ratio 293 Oxygen Delivery Method Oximask Oxygen Flow Rate 3 Narrative Exam Narrative: NAD, alert and oriented. Fluent speech. She was in mild distress. Lungs are still wheezy with scattered rhonchi. Heart is regular, no murmur gallop or rub. Abdomen is soft, non distended. Extremities are free of edema. Objective Labs 06/15/24 04:24 06/16/24 12:12 [facility] Medical History Cardiac arrhythmia Morbid obesity due to excess calories Elevated brain natriuretic peptide (BNP) level Acute and chronic respiratory failure with hypoxia Chronic anticoagulation Cervical spondylosis Neck pain Cervical radiculopathy CAD (coronary artery disease) Congestive heart failure COPD (chronic obstructive pulmonary disease) Surgical History AICD (automatic cardioverter/defibrillator) present H/O heart artery stent Social History household members: spouse lives independently: Yes Smoking Status: Current some day smoker alcohol intake: current Assessment & Plan Assessment & Plan narrative: 1. Acute exacerbation of chronic obstructive pulmonary disease, present on admission and active. Patient has severe COPD , on supp O2 and Bipap use at home. Etiology for exacerbation unclear/ Viral swabs for URI negative , including COVID, Flu, RSV Continue prn Albuterol Inh treatments Continue Solumedrol 60 mg IV reduced 2/10 to q8. change to oral prednisone with only improvement in symptoms, typically she takes some time and if transitioned too early in the past will regress with regards to symptoms. 2. Acute and chronic respiratory failure with hypoxia, present on admission and active. See above plan 3. Elevated lactic acid level, improving. Probably sec to hypotensive event related to Hypoxia sec to COPD exacerbation Continue Zosyn 4. Chronic systolic heart failure, active. as noted above / has severe chronic Systolic CHF LVEF 25% Monitor Intake and Output Daily weight Continue Entresto, Empagloflozin, and home furosemide 5. Hypokalemia due to excessive renal loss of potassium, improving. Likely sec to large dose of Lasix at home and likely decreased oral intake now improved. resumed home furosemide. 6. Chronic anticoagulation, stable. On Chronic A/C / Apixaban , sec to Severe Cardiomyopathy/ h/o Cardiac arrythmias, been on Amiodarone and Mexilitine , has AICD Has no active Bleeding, HH stable Shall give evening dose of Apixaban, and continue bid per home dose Hold Amiodarone given borderline low SBP 7. Morbid obesity due to excess calories, stable. The patient is at much higher risk for medical and surgical complications because of their obesity. This increases the difficulty and complexity of medical and surgical interventions and increases the chances of poor outcomes such as morbidity and mortality. 8. Hyperglycemia, active. Starting on lantus this evening continue with sliding scale this happens with most of her admissions requiring steroids. patient gets very upset and threatens to leave if her diet is anything other than general while admitted here. PLAN: -continue bronchodilators and steroids. -monitor glucose, started -monitor volume status and resume oral Lasix. -monitor potassium and replace as needed. -continue anticoagulation. She was having slow progression. We will add Mucinex a day for her nasal congestion as well. GENET: 1-2 days. Time-Based Coding :: [TOTAL MINUTES] spent with patient and on the chart (including review of chart, obtaining history, exam, reviewing outside data, placing orders, documenting exam and treatment plan, and counseling patient) on [DATE].
[2024-06-18] MEDS: INSULIN GLARGINE 100 UNIT/ML 3ML PEN 20 UNIT SUBCUT (08:22)
[2024-06-18] MEDS: INSULIN LISPRO 100 UNIT/ML 3ML VIAL SUBCUT ×7 (08:22→21:01)
[2024-06-18] MEDS: FLUTICASONE 120 SPRAY/16 GM SPRAY.SUSP NASAL ×2 (08:35→20:57)
[2024-06-18] MEDS: AMIODARONE 200 MG TABLET 100 MG PO (08:36)
[2024-06-18] MEDS: PANTOPRAZOLE DR 40 MG TABLET PO ×2 (08:36→20:56)
[2024-06-18] MEDS: SACUBITRIL VALSARTAN 1 EACH PO ×2 (08:36→20:56)
[2024-06-18] MEDS: APIXABAN 5 MG TABLET PO ×2 (08:36→20:56)
[2024-06-18] MEDS: FUROSEMIDE 40 MG TABLET 80 MG PO (08:36)
[2024-06-18] MEDS: ASPIRIN EC 81 MG TABLET PO (08:36)
[2024-06-18] MEDS: MEXILETINE 150 MG 150 EACH PO ×2 (08:37→20:56)
[2024-06-18] MEDS: SODIUM CHLORIDE 0.9% FLUSH 10 ML IV ×2 (08:43→20:58)
[2024-06-18] MEDS: BUDESONIDE 0.5 MG/2 ML NEB INH ×2 (08:57→17:03)
--- NOTE | 2024-06-18 10:51 | CM.DPC ---
DCP Cont. Reviewed EMR and team rounds for status updates. Per Hospitalist, pt is slowly improving, will need 2-more days of inpt tx before being stable of for d/c. Will have [facility] after d/c.
[2024-06-18] MEDS: cefTRIAXone 2,000 MG in SODIUM CHLORIDE 0.9% 100 ML 200 MG IV (11:02)
[2024-06-18] MEDS: AZITHROMYCIN 500 MG in DEXTROSE 5% IN WATER 250 ML 250 MG IV (11:03)
[2024-06-18] MEDS: OXYCODONE/ACETAMINOPHEN 5/325 TABLET 2 TAB PO ×2 (15:07→21:22)
[2024-06-18] MEDS: LOPERAMIDE 2 MG CAPSULE PO ×2 (15:07→21:22)
--- NOTE | 2024-06-18 16:42 | PT.IPTN ---
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 (06/14/24) Physical Therapy Treatment Note M2 PT-IP Current Condition Start: 06/15/24 10:24 Freq: NEEDED Status: Active Protocol: Document 06/18/24 14:12 AB (Rec: 06/18/24 16:37 AB [id number]) Physical Therapy Current Condition Current Condition Evaluation Date 06/17/24 Treatment Diagnosis COPD exacerbation; difficulty in walking Onset Date 06/14/24 M3 PT-IP Subjective Start: 06/15/24 10:24 Freq: NEEDED Status: Active Protocol: Document 06/18/24 14:12 AB (Rec: 06/18/24 16:37 AB [id number]) Subjective Physical Therapy Visit Type Type Treatment Note Visit Start Time 14:18 Visit Stop Time 14:27 Number of PROFESSIONAL APPLICATION DESIGNER Visits 1 Physical Therapy Visit Comments Patient Comments Reluctantly agreeable, reports she has been walking to bathroom. ( Nursing also reports patient has been walking to bathroom. ) Patient advised O2 sats decreased with ambulation last session, and made aware this would be monitored this session. Therapy Pain Assessment Pain When Pain Assessed At Rest M4 PT-IP Mobility and Gait Start: 06/15/24 10:24 Freq: NEEDED Status: Active Protocol: Document 06/18/24 14:12 AB (Rec: 06/18/24 16:37 AB [id number]) PT-Bed Mobility Assessment Supine to Sit Supine to Sit Independent Scooting Scooting to Edge of Bed Independent PT-Transfer Assessment Sit to and From Stand Sit to and from Stand Standby Assistance,1 Person Assistance,Use of Upper Extremities Equipment Transfer Assistive Device Front Wheeled Walker Orthotic/Prosthetic Devices or Brace: No Transfer Ability Level of Assist Standby Assistance Comments Mobility Comments Patient without gait belt, obtained gait belt and slipper socks. Patient allowed socks to be placed on feet, but then immediately stood up and began walking to bathroom prior to therapist being able to place belt on patient. )2 sat 96% O2 mask in place prior to sit to stand. ( Patient transfers sidelying to sit does not lie supine per patient) Gait Assessment Gait Gait Assistance Required: Standby Assistance,1 Person Assist Distance (Feet) 15 Able to Maintain Weight Bearing Status Yes During Gait Assistive Devices Assistive Device Front Wheeled Walker Orthotic/Prosthetic Devices or Brace: No Gait Deviations General Gait Pattern Decreased Stride Length, Decreased Feet Clearance,Step- to Gait Factors Limiting Gait Function Factors Limiting Gait Function Decreased Activity Tolerance, Decreased Strength,Limited Range of Motion,Poor Safety Awareness,Respiratory Distress Comments Gait Comments Patient ambulates with increased velocity, but does navigate tubing. Ambulated with FWW to bathroom 12 feet then to sink 12 feet and back to bed feet after washing hands. O2 sat once returned to bed 94%, noted increased coughing and SOB, patient postioned for breathlessness ( arms resting on tray table on pillow) Call light within reach. Nursing made aware of patient coughing. PT-Balance Assessment Standing Balance and Reactions Static Standing Balance Ability Good Dynamic Standing Balance Ability Fair Device Used FWW M5 PT-IP Objective Assessments Start: 06/15/24 10:24 Freq: NEEDED Status: Active Protocol: Document 06/17/24 10:45 AB(2) (Rec: 06/17/24 12:57 AB(2) [id number]) Orientation Orientation/Cognition Level of Alertness Alert Orientation Name,Place,Situation Language Function Ability No Deficits Noted Safety Awareness Decreased Safety Awareness Memory Description No Deficits Noted Gross Range of Motion Lower Extremity ROM Assessment Within Functional Limits Strength Lower Extremity Strength Assessment Within Functional Limits Muscle Tone Muscle Tone WNL Yes M6 PT-IP Treatment Start: 06/15/24 10:24 Freq: NEEDED Status: Active Protocol: Document 06/18/24 14:12 AB (Rec: 06/18/24 16:37 AB [id number]) Physical Therapy Treatment Education Education Provided Safety M7 PT-IP Assessment and Plan Start: 06/15/24 10:24 Freq: NEEDED Status: Active Protocol: Document 06/18/24 14:12 AB (Rec: 06/18/24 16:37 AB [id number]) PT Summary Assessment and Plan Potential Rehabilitation Potential Fair Status of Condition at Evaluation Unstable Summary Impairments Strength,Balance,Transfers, Gait,Activity Tolerance Assessment Summary pt is a 59 y/o F who is admitted for COPD exacerbation . Per nursing patient has been walking to and from bathroom with walker without assist. Patient able to walk to and from bathroom with FWW with supervision (O2 mask in place) with O2 sats 94% once back to bed seated on bed, but increased coughing,/poor juan to ambulation nursing made aware. Goals Transfer Goal Independent,Front Wheeled Walker Gait Goal Independent,Front Wheel Walker Gait Distance 100 Other Goals up/down 5 steps R rail SBA up/down 3 steps B jay SBA Days to Meet Goals 10 Frequency of Treatment Frequency Of Treatment Once a Day Treatment Plan Physical Therapy Treatment Plan Transfer Training,Gait Training,Therapeutic Exercise, Balance Retraining,Discharge Planning,Neuromuscular Re-ed, Coordination Retraining Other Recommendations and Next Treatment stair climbing if/when Focus appropriate Precautions Other Precautions O2 sat Recommendations To Nursing Amount of Assist Needed Standby Assistance Discharge Recommendations PT Discharge Recommendations Home with Assistance,Home Health,Outpatient PT Other Discharge Recommendations may benefi from cardiopulmonary rehab Transportation Needs at Discharge Private Vehicle
[2024-06-18] MEDS: INSULIN GLARGINE 100 UNIT/ML 3ML PEN 10 UNIT SUBCUT (17:06)
--- NOTE | 2024-06-18 18:40 | PC.NURSE ---
left forearm IV was removed for c/o site pain; Insulin sliding scale increased and additional dose of lantus given this afternoon; pt c/o nausea and diarrhea earlier this shift and was medicated w/ zofran and imodium; she was given po benadryl for itching and oxy for headache; she did take about a 3 hour nap today
[2024-06-18] MEDS: guaiFENesin ER 600 MG TAB PO (20:56)
[2024-06-18] MEDS: MONTELUKAST 10 MG TABLET PO (20:56)
[2024-06-18] MEDS: diazePAM 5 MG TABLET PO (23:03)
[2024-06-18] MEDS: diphenhydrAMINE 25 MG TABLET PO (23:03)
[2024-06-19] VITALS (8 sets, daily range): BP systolic 109–124; BP diastolic 46–68; PULSE 59–83; RESP 17–22; TEMP 36.4–36.6; O2SAT 95–99
[2024-06-19] MEDS: OXYCODONE/ACETAMINOPHEN 5/325 TABLET 2 TAB PO ×3 (04:40→20:31)
[2024-06-19] MEDS: SODIUM CHLORIDE 0.9% FLUSH 10 ML IV ×3 (04:42→20:33)
[2024-06-19] MEDS: methylPREDNISolone 125 MG/2 ML VIAL 60 MG IV ×3 (04:42→20:33)
[2024-06-19] MEDS: diazePAM 5 MG TABLET PO ×2 (05:04→20:31)
[2024-06-19] MEDS: BUDESONIDE 0.5 MG/2 ML NEB INH ×2 (06:13→19:53)
[2024-06-19] MEDS: ALBUTEROL 2.5 MG/3 ML NEB (ADULT) INH ×5 (06:13→22:50)
[2024-06-19 07:28] LABS: Add Manual Diff / Slide Review NO; Basophils Absolute Auto 0 /uL (0-100); Basophils Percent Auto 0.2 % (0-2); Eosinophils Absolute Auto 0 /uL (0-450); Hematocrit 42.2 % (36-46); Lymphocytes Absolute Auto 600 /uL (1100-4500); Lymphocytes Percent Auto 4.3 % (25-40); Mean Corpuscular HGB Conc 30.8 % (30-36); Mean Corpuscular Volume 84.5 fL (80-100); Monocytes Absolute Auto 300 /uL (0-900); Monocytes Percent Auto 2.5 % (3-14); Neutrophils Absolute Auto 12500 /uL (1500-7000); Platelet Count 255 X10^3/uL (150-400); Red Blood Cell Count 4.99 X10^6/uL (4.0-5.2); Red Cell Distribution Width 19.6 % (11.6-14.8); White Blood Cell Count 13.4 X10^3/uL (4.5-11.0)
--- NOTE | 2024-06-19 07:38 | PM.PN.1 ---
Subjective Subjective Interval history: Summary: 59 y/o F, with complicated PMH including Chronic Severe Systolic CHF, / Ischemic CM, s/p Cor stent and AICD on Entresto, Empagliflozin, Amiodarone, chronic a/c Apixaban, for severe Cardiomyopathy , Moderately severe COPD on home O2 and Home Bipap , HTN, DM 2, Morbid Obesity ( BMI 44) presented to ED with 2 days history of progressive Shortness of breath and wheezing. URI symptoms and a negative PCR. Being treated for COPD with slow improvement. S: She feels somewhat better today. Less facial congestion and less dyspnea. She had a lot of left hip pain from lying on her left hip overnight. Exam Vital Signs (past 8 hours): - 06/18/24 23:50 06/19/24 04:00 06/19/24 06:13 Temperature 97.5 F L Pulse Rate 69 72 59 L Respiratory Rate 20 17 20 Blood Pressure 112/55 L Pulse Oximetry 97 95 99 Oxygen Delivery Method Oximask Oximask Oxygen Flow Rate 3 3 Fraction of Inspired Oxygen 32 Fraction of Inspired Oxygen 32 SaO2/FiO2 Ratio 293 Oxygen Delivery Method Oximask Oxygen Flow Rate 3 Narrative Exam Narrative: NAD, alert and oriented. Fluent speech. Lungs are clear, normal rate and effort. She was have diminished breath sounds but really mostly resolved wheezing since yesterday. Heart is regular, no murmur gallop or rub. Abdomen is soft, non distended. Extremities are free of edema. Objective Imaging Chest x-ray: Radiologist's impression: Clear. Labs 06/19/24 07:16 06/19/24 07:16 Labs: Laboratory Results - last 24 hr 06/19/24 07:16 WBC 13.4 H RBC 4.99 Hgb 13.0 Hct 42.2 MCV 84.5 MCH 26.0 MCHC 30.8 RDW 19.6 H Plt Count 255 Neut % (Auto) 93.0 H Lymph % (Auto) 4.3 L [place] % (Auto) 2.5 L Eos % (Auto) 0.0 L Baso % (Auto) 0.2 Neut # (Auto) 45546 H Lymph # (Auto) 600 L [place] # (Auto) 300 Eos # (Auto) 0 Baso # (Auto) 0 PFSH Medical History Cardiac arrhythmia Morbid obesity due to excess calories Elevated brain natriuretic peptide (BNP) level Acute and chronic respiratory failure with hypoxia Chronic anticoagulation Cervical spondylosis Neck pain Cervical radiculopathy CAD (coronary artery disease) Congestive heart failure COPD (chronic obstructive pulmonary disease) Surgical History AICD (automatic cardioverter/defibrillator) present H/O heart artery stent Social History household members: spouse lives independently: Yes Smoking Status: Current some day smoker alcohol intake: current Assessment & Plan Assessment & Plan narrative: 1. Acute exacerbation of chronic obstructive pulmonary disease, present on admission and improving. Patient has severe COPD , on supp O2 and Bipap use at home. Etiology for exacerbation unclear/ Viral swabs for URI negative , including COVID, Flu, RSV Continue prn Albuterol Inh treatments Continue Solumedrol 60 mg IV reduced 2/10 to q8. change to oral prednisone with only improvement in symptoms, typically she takes some time and if transitioned too early in the past will regress with regards to symptoms. 2. Acute and chronic respiratory failure with hypoxia, present on admission and active. See above plan 3. Elevated lactic acid level, resolved. Probably sec to hypotensive event related to Hypoxia sec to COPD exacerbation Continue Zosyn 4. Chronic systolic heart failure, stable. as noted above / has severe chronic Systolic CHF LVEF 25% Monitor Intake and Output Daily weight Continue Entresto, Empagloflozin, and home furosemide 5. Hypokalemia due to excessive renal loss of potassium, improved. Likely sec to large dose of Lasix at home and likely decreased oral intake now improved. resumed home furosemide. 6. Chronic anticoagulation, stable. On Chronic A/C / Apixaban , sec to Severe Cardiomyopathy/ h/o Cardiac arrythmias, been on Amiodarone and Mexilitine , has AICD Has no active Bleeding, HH stable Shall give evening dose of Apixaban, and continue bid per home dose Hold Amiodarone given borderline low SBP 7. Morbid obesity due to excess calories, stable. The patient is at much higher risk for medical and surgical complications because of their obesity. This increases the difficulty and complexity of medical and surgical interventions and increases the chances of poor outcomes such as morbidity and mortality. 8. Hyperglycemia, improved. Starting on lantus this evening continue with sliding scale this happens with most of her admissions requiring steroids. patient gets very upset and threatens to leave if her diet is anything other than general while admitted here. PLAN: -continue bronchodilators and steroids. -monitor glucose, started insulin and will continue. -monitor volume status and resumed oral Lasix. -monitor potassium and replace as needed. -continue anticoagulation. -continue Mucinex -advance activity She was having slow progression. We will add Mucinex a day for her nasal congestion as well. GENET: 1-2 days. Time-Based Coding :: [TOTAL MINUTES] spent with patient and on the chart (including review of chart, obtaining history, exam, reviewing outside data, placing orders, documenting exam and treatment plan, and counseling patient) on [DATE].
[2024-06-19 07:39] LABS: Lactate (Lactic Acid) 2.7 mmol/L (0.7-2.1)
[2024-06-19 07:40] LABS: Alanine Aminotransferase 30 IU/L (<35); Albumin 3.9 g/dL (3.5-5.0); Albumin Globulin Ratio 1.6 (1.0-2.8); Alkaline Phosphatase 137 U/L (38-126); Aspartate Aminotransferase 30 IU/L (14-36); Bilirubin Total 0.3 mg/dL (0.2-1.3); Blood Urea Nitrogen 31 mg/dL (7-17); Calcium 8.9 mg/dL (8.4-10.2); Carbon Dioxide 33 mmol/L (22-32); Chloride 97 mmol/L (98-107); Estimated Glomerular Filt Rate > 60 mL/min (>60); Globulin 2.5 g/dL (1.7-4.1); Glucose 299 mg/dL (80-110); HEMOLYSIS 23 (0-50); Sodium 134 mmol/L (137-145); Total Protein 6.4 g/dL (6.3-8.2)
[2024-06-19] MEDS: INSULIN LISPRO 100 UNIT/ML 3ML VIAL SUBCUT ×5 (07:57→21:06)
[2024-06-19] MEDS: LIDOCAINE 5% PATCH 1 EACH TOP (08:06)
[2024-06-19] MEDS: INSULIN GLARGINE 100 UNIT/ML 3ML PEN 30 UNIT SUBCUT (08:06)
[2024-06-19] MEDS: AMIODARONE 200 MG TABLET 100 MG PO (08:15)
[2024-06-19] MEDS: MEXILETINE 150 MG 150 EACH PO ×2 (08:17→20:32)
[2024-06-19] MEDS: APIXABAN 5 MG TABLET PO ×2 (08:17→20:30)
[2024-06-19] MEDS: guaiFENesin ER 600 MG TAB PO ×2 (08:19→20:31)
[2024-06-19] MEDS: FUROSEMIDE 40 MG TABLET 80 MG PO (08:19)
[2024-06-19] MEDS: SACUBITRIL VALSARTAN 1 EACH PO ×2 (08:19→20:30)
[2024-06-19] MEDS: PANTOPRAZOLE DR 40 MG TABLET PO ×2 (08:19→20:31)
[2024-06-19] MEDS: NYSTATIN POWDER 15GM 1 APPLIC TOP ×2 (08:21→20:31)
[2024-06-19] MEDS: FLUTICASONE 120 SPRAY/16 GM SPRAY.SUSP NASAL ×2 (08:21→20:32)
[2024-06-19] MEDS: ASPIRIN EC 81 MG TABLET PO (08:25)
[2024-06-19 08:59] LABS: Reflexed Lactate in 2 Hours Y
[2024-06-19] MEDS: cefTRIAXone 2,000 MG in SODIUM CHLORIDE 0.9% 100 ML 200 MG IV (09:47)
[2024-06-19] MEDS: AZITHROMYCIN 500 MG in DEXTROSE 5% IN WATER 250 ML 250 MG IV (09:48)
[2024-06-19 11:48] LABS: Lactate 2HR (Lactic Acid Rflx) 3.6 mmol/L (0.7-2.1)
[2024-06-19] MEDS: INSULIN LISPRO 100 UNIT/ML 3ML VIAL 6 UNIT SUBCUT ×2 (12:02→17:30)
[2024-06-19] MEDS: ONDANSETRON 4 MG/2 ML INJ IV ×2 (12:44→20:31)
--- NOTE | 2024-06-19 13:04 | PT.IPTN ---
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 (06/14/24) Physical Therapy Treatment Note M2 PT-IP Current Condition Start: 06/15/24 10:24 Freq: NEEDED Status: Active Protocol: Document 06/18/24 14:12 AB (Rec: 06/18/24 16:37 AB [id number]) Physical Therapy Current Condition Current Condition Evaluation Date 06/17/24 Treatment Diagnosis COPD exacerbation; difficulty in walking Onset Date 06/14/24 M3 PT-IP Subjective Start: 06/15/24 10:24 Freq: NEEDED Status: Active Protocol: Document 06/19/24 12:40 MB (Rec: 06/19/24 13:03 MB [id number]) Subjective Physical Therapy Visit Type Type Treatment Note Visit Start Time 12:40 Visit Stop Time 12:48 Number of ATTENDANCE SECRETARY Visits 0 Physical Therapy Visit Comments Patient Comments Pt up in BR upon arrival, c/o N/V and diarrhea. M4 PT-IP Mobility and Gait Start: 06/15/24 10:24 Freq: NEEDED Status: Active Protocol: Document 06/19/24 12:40 MB (Rec: 06/19/24 13:03 MB [id number]) PT-Bed Mobility Assessment Sit to Supine Sit to Supine Independent Scooting Scooting to Edge of Bed Independent PT-Transfer Assessment Sit to and From Stand Sit to and from Stand Standby Assistance,Total Assistance,Use of Upper Extremities Equipment Transfer Assistive Device Front Wheeled Walker Orthotic/Prosthetic Devices or Brace: No Transfer Ability Level of Assist Standby Assistance Comments Mobility Comments HOB increased and pt reaches for rails as needed, pt up in BR with RW, no socks and no gait belt upon arrival Gait Assessment Gait Gait Assistance Required: Standby Assistance Distance (Feet) 15 Assistive Devices Assistive Device Front Wheeled Walker Orthotic/Prosthetic Devices or Brace: No Gait Deviations General Gait Pattern Decreased Stride Length, Decreased Feet Clearance,Step- to Gait Factors Limiting Gait Function Factors Limiting Gait Function Decreased Activity Tolerance, Poor Safety Awareness, Respiratory Distress Comments Gait Comments PT assists with O2 line, pt stands at sink and washes hands I PT-Balance Assessment Sitting Balance and Reactions Static Sitting Balance Ability Normal Dynamic Sitting Balance Ability Normal Standing Balance and Reactions Static Standing Balance Ability Good Dynamic Standing Balance Ability Good Device Used RW or no AD M5 PT-IP Objective Assessments Start: 06/15/24 10:24 Freq: NEEDED Status: Active Protocol: Document 06/17/24 10:45 AB(2) (Rec: 06/17/24 12:57 AB(2) [id number]) Orientation Orientation/Cognition Level of Alertness Alert Orientation Name,Place,Situation Language Function Ability No Deficits Noted Safety Awareness Decreased Safety Awareness Memory Description No Deficits Noted Gross Range of Motion Lower Extremity ROM Assessment Within Functional Limits Strength Lower Extremity Strength Assessment Within Functional Limits Muscle Tone Muscle Tone WNL Yes M6 PT-IP Treatment Start: 06/15/24 10:24 Freq: NEEDED Status: Active Protocol: Document 06/18/24 14:12 AB (Rec: 06/18/24 16:37 AB [id number]) Physical Therapy Treatment Education Education Provided Safety M7 PT-IP Assessment and Plan Start: 06/15/24 10:24 Freq: NEEDED Status: Active Protocol: Document 06/19/24 12:40 MB (Rec: 06/19/24 13:03 MB [id number]) PT Summary Assessment and Plan Potential Rehabilitation Potential Fair Status of Condition at Evaluation Unstable Summary Impairments Balance,Bed Mobility,Transfers ,Gait,Activity Tolerance Progress Towards Goals Slow Progress due to Medical Issues,Slow Progress due to Activity Tolerance Assessment Summary Pt con't to mobilize short distances in the room. Activity is limited by c/o N/V and diarrhea today and overall, but pulmonary status and activity tolerance. Goals Transfer Goal Independent,Front Wheeled Walker Gait Goal Independent,Front Wheel Walker Gait Distance 100 Other Goals up/down 5 steps R rail SBA up/down 3 steps B jay SBA Days to Meet Goals 10 Frequency of Treatment Frequency Of Treatment Once a Day Other frequency x1 Treatment Plan Physical Therapy Treatment Plan Transfer Training,Gait Training,Therapeutic Exercise, Balance Retraining,Discharge Planning,Neuromuscular Re-ed, Coordination Retraining Other Recommendations and Next Treatment stair climbing if/when Focus appropriate Precautions Other Precautions O2 sats Recommendations To Nursing Amount of Assist Needed Standby Assistance Discharge Recommendations PT Discharge Recommendations Home with Assistance,Home Health Transportation Needs at Discharge Private Vehicle
[2024-06-19] MEDS: LOPERAMIDE 2 MG CAPSULE PO ×2 (14:18→20:52)
--- NOTE | 2024-06-19 15:41 | CM.DPC ---
DCP COnt: Per MD, pt continues with oxygen and breathing treatments and not yet stable for discharge today. Per PT, recommending home with assist and HH. SW met bedside with pt and explained role and pt tearful and confirms she does not feel stable for discharge and sometimes like she has been discharged too quickly. Pt confirms that she is working with [facility] and feels they are helpful and would prefer to also have TONGUE TRIMMER added to HH disciplines. Pt tearful and states she has claustrophobia at baseline with anxiety and depression with being in the hospital so many times in the past year. Pt denies any hx of MH counseling/therapy or being involved in a Chronic Illness support group and SW discussed the benefits to getting these community supports. Pt unsure if she would be ready to follow through on this yet but would like a [facility] TONGUE TRIMMER that might be able to give her these resources. Pt also states that her granddtr who assists her with appointments is now working interactive multimedia designer, a student, and a mother to a young child and might not be able to provide transport at d/c. SW called Medicaid and unfortunately pt does not have Medicaid Transportation Benefits at this time. F2F was completed for [facility] and added TONGUE TRIMMER. Pt feels RN is helpful and TONGUE TRIMMER but does not feel PT needed from [facility] right at d/c. Plan: SW to follow closely for plan of d/c home when stable with [facility] RN/TONGUE TRIMMER and pt might need assist with transport or waiting for granddtr to get off work to transport. GEORGE Mcclain
[2024-06-19] MEDS: SODIUM CHLORIDE 0.9% 1,000 ML 84 ML IV (16:33)
[2024-06-19 16:35] LABS: MRSA (Nasal) PCR NOT DETECTED (Not Detect)
[2024-06-19] MEDS: MONTELUKAST 10 MG TABLET PO (20:31)
[2024-06-19] MEDS: INSULIN GLARGINE 100 UNIT/ML 3ML PEN 20 UNIT SUBCUT (20:58)
[2024-06-20] VITALS (9 sets, daily range): BP systolic 99–123; BP diastolic 51–83; PULSE 51–108; RESP 18–24; TEMP 36.4–36.7; O2SAT 92–97
[2024-06-20] MEDS: diphenhydrAMINE 25 MG TABLET PO ×2 (00:14→17:00)
[2024-06-20] MEDS: methylPREDNISolone 125 MG/2 ML VIAL 60 MG IV ×3 (04:33→20:56)
[2024-06-20] MEDS: OXYCODONE/ACETAMINOPHEN 5/325 TABLET 2 TAB PO ×4 (04:34→22:33)
[2024-06-20] MEDS: LIDOCAINE 5% PATCH 1 EACH TOP (06:52)
[2024-06-20] MEDS: SODIUM CHLORIDE 0.9% 1,000 ML 84 ML IV (06:59)
[2024-06-20] MEDS: INSULIN LISPRO 100 UNIT/ML 3ML VIAL 6 UNIT SUBCUT (08:08)
[2024-06-20] MEDS: INSULIN LISPRO 100 UNIT/ML 3ML VIAL SUBCUT ×4 (08:09→20:59)
[2024-06-20] MEDS: INSULIN GLARGINE 100 UNIT/ML 3ML PEN 20 UNIT SUBCUT (08:12)
[2024-06-20] MEDS: NYSTATIN POWDER 15GM 1 APPLIC TOP ×2 (08:14→20:59)
[2024-06-20] MEDS: FLUTICASONE 120 SPRAY/16 GM SPRAY.SUSP NASAL ×2 (08:14→20:58)
--- NOTE | 2024-06-20 08:44 | PM.PN.IH.1 ---
Subjective Subjective Date Patient Seen: 06/20/24 Time Patient Seen: 08:00 Interval history: Summary: 59 y/o F, with complicated PMH including Chronic Severe Systolic CHF, / Ischemic CM, s/p Cor stent and AICD on Entresto, Empagliflozin, Amiodarone, chronic a/c Apixaban, for severe Cardiomyopathy , Moderately severe COPD on home O2 and Home Bipap , HTN, DM 2, Morbid Obesity ( BMI 44) presented to ED with 2 days history of progressive Shortness of breath and wheezing. URI symptoms and a negative PCR. Being treated for COPD with slow improvement. S: She reports increasing nasal congestion, sinus ache and pain. Her left hand is also red and mildly swollen not responding heat packs. There was a proximal IV on the arm that was removed. Exam Vital Signs (past 8 hours): - 06/20/24 04:00 Temperature 97.6 F Pulse Rate 71 Respiratory Rate 18 Blood Pressure 102/51 L Pulse Oximetry 97 Oxygen Flow Rate 3 Fraction of Inspired Oxygen 32 SaO2/FiO2 Ratio 300 Oxygen Delivery Method Oximask Oxygen Flow Rate 3 Narrative Exam Narrative: NAD, alert and oriented. Fluent speech. Lungs with scattered rhonchi, no wheezing. Heart is regular, no murmur gallop or rub. Abdomen is soft, non distended. Extremities are free of edema. Left dorsal hand with mild erythema and tenderness extending to the wrist. No proximal pain or swelling in the forearm or upper arm. Objective Labs 06/19/24 07:16 06/19/24 07:16 Labs: Laboratory Results - last 24 hr 06/19/24 06/19/24 11:21 12:35 Lactate 3.6 H Nasal Screen MRSA (PCR) Not detected PFSH Medical History Acute and chronic respiratory failure with hypoxia CAD (coronary artery disease) Cardiac arrhythmia Cervical radiculopathy Cervical spondylosis Chronic anticoagulation Congestive heart failure COPD (chronic obstructive pulmonary disease) Elevated brain natriuretic peptide (BNP) level Morbid obesity due to excess calories Neck pain Surgical History AICD (automatic cardioverter/defibrillator) present H/O heart artery stent Social History household members: spouse lives independently: Yes Smoking Status: Current some day smoker alcohol intake: current Assessment & Plan Assessment & Plan narrative: 1. Acute exacerbation of chronic obstructive pulmonary disease, present on admission and improving. Patient has severe COPD , on supp O2 and Bipap use at home. Etiology for exacerbation unclear/ Viral swabs for URI negative , including COVID, Flu, RSV Continue prn Albuterol Inh treatments Continue Solumedrol 60 mg IV reduced 2/10 to q8. change to oral prednisone with only improvement in symptoms, typically she takes some time and if transitioned too early in the past will regress with regards to symptoms, not ready at. 2. Acute and chronic respiratory failure with hypoxia, present on admission and active. See above plan 3. Elevated lactic acid level, resolved. Probably sec to hypotensive event related to Hypoxia sec to COPD exacerbation Continue Zosyn 4. Chronic systolic heart failure, stable. as noted above / has severe chronic Systolic CHF LVEF 25% Monitor Intake and Output Daily weight Continue Entresto, Empagloflozin, and home furosemide 5. Hypokalemia due to excessive renal loss of potassium, improved. Likely sec to large dose of Lasix at home and likely decreased oral intake now improved. resumed home furosemide. 6. Chronic anticoagulation, stable. On Chronic A/C / Apixaban , sec to Severe Cardiomyopathy/ h/o Cardiac arrythmias, been on Amiodarone and Mexilitine , has AICD Has no active Bleeding, HH stable Shall give evening dose of Apixaban, and continue bid per home dose Hold Amiodarone given borderline low SBP 7. Morbid obesity due to excess calories, stable. The patient is at much higher risk for medical and surgical complications because of their obesity. This increases the difficulty and complexity of medical and surgical interventions and increases the chances of poor outcomes such as morbidity and mortality. 8. Hyperglycemia, improved. Starting on lantus this evening continue with sliding scale this happens with most of her admissions requiring steroids. patient gets very upset and threatens to leave if her diet is anything other than general while admitted here. 9. Acute bacterial sinusitis, worsening 06/20/2024. Start amoxicillin/clavulanate 875 mg b.i.d. for 10 days on 06/20/2024 10. Left posterior hand phlebitis/cellulitis, new diagnosis 06/20/2024 Start amoxicillin/clavulanate 875 mg b.i.d. for 10 days on 06/20/2024 PLAN: -start amoxicillin/clavulanate 875 mg b.i.d. for 10 days on 06/20/2024 -continue bronchodilators and steroids. -monitor glucose, started insulin and will continue. -monitor volume status and resumed oral Lasix. -monitor potassium and replace as needed. -continue anticoagulation. -continue Mucinex -advance activity She was having slow progression. We will add Mucinex a day for her nasal congestion as well. GENET: 1-2 days. Time-Based Coding :: [TOTAL MINUTES] spent with patient and on the chart (including review of chart, obtaining history, exam, reviewing outside data, placing orders, documenting exam and treatment plan, and counseling patient) on [DATE]. PROFEE [employer] Attendant Document charge(s): No Charge Codes Subsequent inpatient/observation care: [id number]
--- NOTE | 2024-06-20 09:07 | PT.IPTN ---
Current Diagnoses Morbid (severe) obesity due to excess calories (06/14/24) Hypokalemia (06/14/24) Chronic obstructive pulmonary disease with (acute) exacerbation (06/14/24) Acute and chronic respiratory failure with hypoxia (06/14/24) Hyperglycemia, unspecified (06/14/24) Other specified abnormal findings of blood chemistry (06/14/24) intermediate frame tender (current) use of anticoagulants (06/14/24) Physical Therapy Treatment Note M2 PT-IP Current Condition Start: 06/15/24 10:24 Freq: NEEDED Status: Active Protocol: Document 06/18/24 14:12 AB (Rec: 06/18/24 16:37 AB [id number]) Physical Therapy Current Condition Current Condition Evaluation Date 06/17/24 Treatment Diagnosis COPD exacerbation; difficulty in walking Onset Date 06/14/24 M3 PT-IP Subjective Start: 06/15/24 10:24 Freq: NEEDED Status: Active Protocol: Document 06/20/24 08:42 SP (Rec: 06/20/24 11:18 SP [id number]) Subjective Physical Therapy Visit Type Type Treatment Note Visit Start Time 08:42 Visit Stop Time 09:07 Notes Vitals pre mobility taken by BELL CAPTAIN: BP 109/53 HR 71 SaO2 97% on 3 L O2. Number of SERVICE CONTROL OPERATOR Visits 1 Physical Therapy Visit Comments Patient Comments Pt agreeable to working with PT on 2nd attempt, 1st attempt pt eating breakfast. M4 PT-IP Mobility and Gait Start: 06/15/24 10:24 Freq: NEEDED Status: Active Protocol: Document 06/20/24 08:42 SP (Rec: 06/20/24 11:18 SP [id number]) PT-Bed Mobility Assessment Sit to Supine Sit to Supine Independent Scooting Scooting to Edge of Bed Independent PT-Transfer Assessment Sit to and From Stand Sit to and from Stand Standby Assistance,Use of Upper Extremities Equipment Transfer Assistive Device Gait Belt,Front Wheeled Walker Orthotic/Prosthetic Devices or Brace: No Transfer Ability Level of Assist Standby Assistance Comments Mobility Comments Pt I bed mobility, sitting up in bed unsupported during vitals check by nursing. STS SBA with self mgt of O2 and IV lines. SERVICE CONTROL OPERATOR changed pt over to portable O2 take on IV pole johns. Pt progressed gait into hallway using FWW and assisting IV pole at times, manages her own tubing as states does at home. Cues for slower pacing and breath for safety O2 Saturation and energy conservation, she maintained SaO2 at 92% on 3L. SERVICE CONTROL OPERATOR wheeled pt rest of want to stairs. She completed 3 steps 3 BUE Gait Assessment Gait Gait Assistance Required: Standby Assistance,Contact Guard Assist Distance (Feet) 100 Able to Maintain Weight Bearing Status Yes During Gait Assistive Devices Assistive Device Gait Belt,Front Wheeled Walker Orthotic/Prosthetic Devices or Brace: No Gait Deviations General Gait Pattern Antalgic,Wide Based Gait Factors Limiting Gait Function Factors Limiting Gait Function Decreased Activity Tolerance, Respiratory Distress Comments Gait Comments SERVICE CONTROL OPERATOR assist with O2 Line and IV pole as needed, during gait. Stair Climbing Assessment Evaluation Level of Assist On Stairs Standby Assistance,Contact Guard Assistance Devices Stair Climbing Assistive Devices Left Railing,Right Railing Technique/Endurance Stair Climbing Direction Ascend and Descend Stair Climbing Technique Step Over Step Number of Steps Climbed 3 Stair Climbing Set # Repetitions (reps) 3 Comments Stair Climbing Comments Pt BUE on rails assimuating wall 1/2 stair case, then L HR 2nd half. Unable to tolerate full 5 + 3 needed to enter home due to decreased strength and activity tolerance and decreased breath control, required seated rest after 6 stairs. PT-Balance Assessment Sitting Balance and Reactions Static Sitting Balance Ability Normal Dynamic Sitting Balance Ability Normal Standing Balance and Reactions Static Standing Balance Ability Good Dynamic Standing Balance Ability Good Device Used RW or no AD M5 PT-IP Objective Assessments Start: 06/15/24 10:24 Freq: NEEDED Status: Active Protocol: Document 06/17/24 10:45 AB(2) (Rec: 06/17/24 12:57 AB(2) [id number]) Orientation Orientation/Cognition Level of Alertness Alert Orientation Name,Place,Situation Language Function Ability No Deficits Noted Safety Awareness Decreased Safety Awareness Memory Description No Deficits Noted Gross Range of Motion Lower Extremity ROM Assessment Within Functional Limits Strength Lower Extremity Strength Assessment Within Functional Limits Muscle Tone Muscle Tone WNL Yes M6 PT-IP Treatment Start: 06/15/24 10:24 Freq: NEEDED Status: Active Protocol: Document 06/20/24 08:42 SP (Rec: 06/20/24 11:18 SP [id number]) Physical Therapy Treatment Education Education Provided Safety Other Treatments Other Treatment Performed Cues for slower pacing, breath for safety and energy conservation with allowance SERVICE CONTROL OPERATOR assist her with IV pole and line mgt as needed, then sitting for breath and tiring recovery before stair mgt. M7 PT-IP Assessment and Plan Start: 06/15/24 10:24 Freq: NEEDED Status: Active Protocol: Document 06/20/24 08:42 SP (Rec: 06/20/24 11:18 SP [id number]) PT Summary Assessment and Plan Potential Rehabilitation Potential Fair Status of Condition at Evaluation Unstable Summary Impairments Balance,Bed Mobility,Transfers ,Gait,Activity Tolerance Progress Towards Goals Slow Progress due to Medical Issues,Slow Progress due to Activity Tolerance Assessment Summary Pt tolerated increased gait distance today w/ FWW, limited distance due to pulmonary status and activity tolerance. Able to complete 6/8 stairs needed to enter home today, needed seated rest after 6 due to SOB and tiring. Able to maintain low 90s SaO2 on 3L during activity but cues for safety breath and slower pacing energy conservation and allowance others to help. Recommening HHPT available and outpt cardiopulminary rehab when medically cleared. Goals Transfer Goal Independent,Front Wheeled Walker Gait Goal Independent,Front Wheel Walker Gait Distance 100 Other Goals up/down 5 steps R rail SBA up/down 3 steps B jay SBA Days to Meet Goals 10 Frequency of Treatment Frequency Of Treatment Once a Day Treatment Plan Physical Therapy Treatment Plan Transfer Training,Gait Training,Therapeutic Exercise, Balance Retraining,Discharge Planning,Neuromuscular Re-ed, Coordination Retraining Other Recommendations and Next Treatment continue 8 stair climbing if Focus tolerated, gait distance fWW with good breath mgt. Precautions Other Precautions O2 sats Recommendations To Nursing Amount of Assist Needed Standby Assistance Discharge Recommendations PT Discharge Recommendations Home with Assistance,Home Health Other Discharge Recommendations may benefi from cardiopulmonary rehab Transportation Needs at Discharge Private Vehicle
[2024-06-20] MEDS: ALBUTEROL 2.5 MG/3 ML NEB (ADULT) INH ×4 (09:14→19:21)
[2024-06-20] MEDS: BUDESONIDE 0.5 MG/2 ML NEB INH ×2 (09:14→19:20)
[2024-06-20] MEDS: AMIODARONE 200 MG TABLET 100 MG PO (09:15)
[2024-06-20] MEDS: APIXABAN 5 MG TABLET PO ×2 (09:31→20:57)
[2024-06-20] MEDS: ASPIRIN EC 81 MG TABLET PO (09:31)
[2024-06-20] MEDS: AMOXICILLIN/CLAV 875/125 MG 1 TAB PO ×2 (09:31→20:57)
[2024-06-20] MEDS: guaiFENesin ER 600 MG TAB PO ×2 (09:32→20:58)
[2024-06-20] MEDS: FUROSEMIDE 40 MG TABLET 80 MG PO (09:32)
[2024-06-20] MEDS: PANTOPRAZOLE DR 40 MG TABLET PO ×2 (09:32→21:00)
[2024-06-20] MEDS: MEXILETINE 150 MG 150 EACH PO ×2 (09:33→20:59)
[2024-06-20] MEDS: SACUBITRIL VALSARTAN 1 EACH PO ×2 (09:33→21:00)
[2024-06-20] MEDS: diazePAM 5 MG TABLET PO ×2 (11:34→21:17)
[2024-06-20] MEDS: INSULIN LISPRO 100 UNIT/ML 3ML VIAL 7 UNIT SUBCUT ×2 (12:26→16:50)
--- NOTE | 2024-06-20 15:28 | DIET.PN1 ---
Dietary Progress Note Assessment: F/u with pt in regards to BG management and nutrition. Met with pt at bedside. Reports at home takes fasting BG every morning and it is around 125. Report sometimes having symptoms of hypoglycemia (dizzy, confused, shakes) around lunch. Test with meter shows BG around 80. Reports she wants her BG between 100 and 150 to avoid symptoms of hypoglycemia. Drinks pepsi to bring BG up from 80 and resolve symptoms. Pt has understanding of purpose of carb consistent diet in regards to her BG and health. Understands our menu and where to find carb grams on menu. Also reports understanding importance of spacing out meals/snacks and pairing foods with protein sources and choosing high fiber sources. However, reports at this time she feels she will within the upcoming year and would rather focus on her quality of life than restricting amount of carbs at meals/worrying about nutrition. Provided empathy for pt. Pt declined needing any further educ, support, or resources in regards to nutrition and BG management at this time. Ht: 160.02 cm Wt: 110.5 kg BMI: 42.5 Last BM: 06/20/24 (06/20/24 06:53) MNA: 10 Talat Score: 19 Diet: 06/17/24 Lunch General (Regular) Diet Diet Modifications: Food Texture: Level 7 - Regular Liquid Consistency: Level 0 - Thin Nutrition Percent Meal Consumed 75% 06/20/24 13:40 Percent Meal Consumed 100% 06/20/24 10:00 Percent Meal Consumed 100% 06/19/24 16:00 Percent Meal Consumed 100% 06/19/24 12:00 Percent Meal Consumed 95 06/19/24 09:39 Percent Meal Consumed 100% 06/19/24 02:00 Labs: RBC 4.99 X10^6/uL (4.0-5.2) 06/19/24 07:16 Hgb 13.0 g/dL (12.0-16.0) 06/19/24 07:16 Hct 42.2 % (36-46) 06/19/24 07:16 Creatinine 0.97 mg/dL (0.52-1.04) 06/19/24 07:16 Hemoglobin A1c 7.8 % (4.0-6.0) H 06/14/24 23:51 Lactate 3.6 mmol/L (0.7-2.1) H 06/19/24 11:21 NT-Pro-B Natriuret Pep 570 pg/mL (<125) H 06/14/24 18:02 Electronically Signed by: Kya Gordon 06/20/24 15:28 Clinical Dietitian [address] [address]
[2024-06-20] MEDS: LOPERAMIDE 2 MG CAPSULE PO (16:57)
--- NOTE | 2024-06-20 17:21 | CM.DPNOTE ---
DCP Continued: Reviewed EMR and team rounds for pt?s medical status. Per MD, pt requring more IV steriods before discharge home. [facility] referral still open and new orders created, waiting to coordinate that closer to pt discharge date. Plan: Anticipating Home with granddaughter on 06/21 or when medically stable. CM Team will continue to follow for coordination of discharge plans. ALEX Hinojosa
[2024-06-20] MEDS: INSULIN GLARGINE 100 UNIT/ML 3ML PEN 25 UNIT SUBCUT (20:58)
[2024-06-20] MEDS: MONTELUKAST 10 MG TABLET PO (20:59)
[2024-06-20] MEDS: SODIUM CHLORIDE 0.9% FLUSH 10 ML IV (21:00)
[2024-06-20] MEDS: diphenhydrAMINE 25 MG TABLET 50 MG PO (22:33)
[2024-06-21] VITALS (10 sets, daily range): BP systolic 99–127; BP diastolic 54–81; PULSE 65–90; RESP 16–22; TEMP 35.9–36.6; O2SAT 95–99
[2024-06-21] MEDS: diphenhydrAMINE 25 MG TABLET 50 MG PO ×4 (04:14→22:56)
[2024-06-21] MEDS: methylPREDNISolone 125 MG/2 ML VIAL 60 MG IV ×3 (04:14→20:47)
[2024-06-21] MEDS: OXYCODONE/ACETAMINOPHEN 5/325 TABLET 2 TAB PO ×4 (04:14→22:56)
[2024-06-21 06:22] LABS: Add Manual Diff / Slide Review NO; Basophils Absolute Auto 0 /uL (0-100); Basophils Percent Auto 0.1 % (0-2); Eosinophils Absolute Auto 0 /uL (0-450); Eosinophils Percent Auto 0.1 % (2-4); Hematocrit 38.2 % (36-46); Hemoglobin 11.9 g/dL (12.0-16.0); Lymphocytes Absolute Auto 700 /uL (1100-4500); Lymphocytes Percent Auto 4.1 % (25-40); Mean Corpuscular HGB Conc 31.3 % (30-36); Mean Corpuscular Hemoglobin 26.3 PG (26-34); Monocytes Absolute Auto 400 /uL (0-900); Monocytes Percent Auto 2.8 % (3-14); Neutrophils Absolute Auto 14800 /uL (1500-7000); Neutrophils Percent Auto 92.9 % (50-75); Platelet Count 266 X10^3/uL (150-400); Red Blood Cell Count 4.54 X10^6/uL (4.0-5.2); Red Cell Distribution Width 19.6 % (11.6-14.8); White Blood Cell Count 15.9 X10^3/uL (4.5-11.0)
[2024-06-21 06:39] LABS: BUN Creatinine Ratio 38.5 (6-22); Blood Urea Nitrogen 35 mg/dL (7-17); Calcium 8.6 mg/dL (8.4-10.2); Carbon Dioxide 36 mmol/L (22-32); Chloride 97 mmol/L (98-107); Estimated Glomerular Filt Rate > 60 mL/min (>60); Glucose 199 mg/dL (80-110); HEMOLYSIS < 15 (0-50); Potassium 4.4 mmol/L (3.4-5.1); Sodium 134 mmol/L (137-145)
--- NOTE | 2024-06-21 07:20 | P.PN_ITS ---
Subjective Subjective Date Patient Seen: 06/21/24 Time Patient Seen: 08:00 Interval history: Summary: 59 y/o F, with complicated PMH including Chronic Severe Systolic CHF, / Ischemic CM, s/p Cor stent and AICD on Entresto, Empagliflozin, Amiodarone, chronic a/c Apixaban, for severe Cardiomyopathy , Moderately severe COPD on home O2 and Home Bipap , HTN, DM 2, Morbid Obesity ( BMI 44) presented to ED with 2 days history of progressive Shortness of breath and wheezing. URI symptoms and a negative PCR. Being treated for COPD with slow improvement. S: She reports persistent shortness of breath, though states sinus symptoms are improved. She has persistent swelling in the back of her hands and states that her skin feels itchy all over. Exam Vital Signs (past 8 hours): - 06/21/24 04:15 Temperature 96.7 F L Pulse Rate 65 Respiratory Rate 20 Blood Pressure 122/75 Pulse Oximetry 99 Oxygen Flow Rate 3 Fraction of Inspired Oxygen 32 SaO2/FiO2 Ratio 287 Oxygen Delivery Method Oximask Oxygen Flow Rate 3 Narrative Exam Narrative: NAD, alert and oriented. Fluent speech. Lungs with scattered rhonchi, diffuse wheezing. Heart is regular, no murmur gallop or rub. Abdomen is soft, non distended. Extremities are free of edema. Bilateral dorsal hands with mild erythema and tenderness extending to the wrist. No proximal pain or swelling in the forearm or upper arm. Otherwise no rash or skin lesions. Objective Labs 06/21/24 06:00 06/21/24 06:00 Labs: Laboratory Results - last 24 hr 06/21/24 06:00 WBC 15.9 H RBC 4.54 Hgb 11.9 L Hct 38.2 MCV 84.0 MCH 26.3 MCHC 31.3 RDW 19.6 H Plt Count 266 Neut % (Auto) 92.9 H Lymph % (Auto) 4.1 L Mcdonough % (Auto) 2.8 L Eos % (Auto) 0.1 L Baso % (Auto) 0.1 Neut # (Auto) 74555 H Lymph # (Auto) 700 L Mcdonough # (Auto) 400 Eos # (Auto) 0 Baso # (Auto) 0 Sodium 134 L Potassium 4.4 Chloride 97 L Carbon Dioxide 36 H BUN 35 H Creatinine 0.91 Estimated GFR > 60 BUN/Creatinine Ratio 38.5 H Glucose 199 H D Calcium 8.6 [facility] Medical History Acute and chronic respiratory failure with hypoxia CAD (coronary artery disease) Cardiac arrhythmia Cervical radiculopathy Cervical spondylosis Chronic anticoagulation Congestive heart failure COPD (chronic obstructive pulmonary disease) Elevated brain natriuretic peptide (BNP) level Morbid obesity due to excess calories Neck pain Surgical History AICD (automatic cardioverter/defibrillator) present H/O heart artery stent Social History household members: spouse lives independently: Yes Smoking Status: Current some day smoker alcohol intake: current Assessment & Plan Assessment & Plan narrative: 1. Acute exacerbation of chronic obstructive pulmonary disease, present on admission and improving. Patient has severe COPD , on supp O2 and Bipap use at home. Etiology for exacerbation unclear/ Viral swabs for URI negative , including COVID, Flu, RSV Continue prn Albuterol Inh treatments Continue Solumedrol 60 mg IV reduced /10 to q8. change to oral prednisone with only improvement in symptoms, typically she takes some time and if transitioned too early in the past will regress with regards to symptoms, not ready at this point, reassess again tomorrow. 2. Acute and chronic respiratory failure with hypoxia, present on admission and active. See above plan 3. Elevated lactic acid level, resolved. Probably sec to hypotensive event related to Hypoxia sec to COPD exacerbation Continue Zosyn 4. Chronic systolic heart failure, stable. as noted above / has severe chronic Systolic CHF LVEF 25% Monitor Intake and Output Daily weight Continue Entresto, Empagloflozin, and home furosemide 5. Hypokalemia due to excessive renal loss of potassium, improved. Likely sec to large dose of Lasix at home and likely decreased oral intake now improved. resumed home furosemide. 6. Chronic anticoagulation, stable. On Chronic A/C / Apixaban , sec to Severe Cardiomyopathy/ h/o Cardiac arrythmias, been on Amiodarone and Mexilitine , has AICD Has no active Bleeding, HH stable Shall give evening dose of Apixaban, and continue bid per home dose Hold Amiodarone given borderline low SBP 7. Morbid obesity due to excess calories, stable. The patient is at much higher risk for medical and surgical complications because of their obesity. This increases the difficulty and complexity of medical and surgical interventions and increases the chances of poor outcomes such as morbidity and mortality. 8. Diabetes mellitus, type 2, improved. Starting on lantus this admission with admission hemoglobin A1c 7.8% continue with sliding scale this happens with most of her admissions requiring steroids. patient gets very upset and threatens to leave if her diet is anything other than general while admitted here. Encouraged diabetic diet. 9. Acute bacterial sinusitis, worsening 06/20/2024. Start amoxicillin/clavulanate 875 mg b.i.d. for 10 days on 06/20/2024 10. Left posterior hand phlebitis/cellulitis, new diagnosis 06/20/2024 Start amoxicillin/clavulanate 875 mg b.i.d. for 10 days on 06/20/2024 PLAN: -continue amoxicillin/clavulanate 875 mg b.i.d. for 10 days on 06/20/2024 -continue bronchodilators and steroids. -monitor glucose, started insulin and will continue. -monitor volume status and resumed oral Lasix. -monitor potassium and replace as needed. -continue anticoagulation. -continue Mucinex -advance activity GENET: 1-2 days. PROFEE Automobile Service Advisor Document charge(s): No Charge Codes Subsequent inpatient/observation care: [id number]
[2024-06-21] MEDS: INSULIN LISPRO 100 UNIT/ML 3ML VIAL 8 UNIT SUBCUT ×2 (08:31→18:02)
[2024-06-21] MEDS: INSULIN LISPRO 100 UNIT/ML 3ML VIAL SUBCUT ×3 (08:32→20:45)
[2024-06-21] MEDS: NYSTATIN POWDER 15GM 1 APPLIC TOP ×2 (08:33→20:52)
[2024-06-21] MEDS: FLUTICASONE 120 SPRAY/16 GM SPRAY.SUSP NASAL ×2 (08:33→20:51)
[2024-06-21] MEDS: INSULIN GLARGINE 100 UNIT/ML 3ML PEN 25 UNIT SUBCUT ×2 (08:34→20:44)
[2024-06-21] MEDS: BUDESONIDE 0.5 MG/2 ML NEB INH ×2 (08:47→19:12)
[2024-06-21] MEDS: ALBUTEROL 2.5 MG/3 ML NEB (ADULT) INH ×4 (08:47→23:51)
[2024-06-21] MEDS: OXYCODONE IR 5 MG TABLET PO ×4 (08:52→18:12)
[2024-06-21] MEDS: AMOXICILLIN/CLAV 875/125 MG 1 TAB PO ×2 (08:52→20:52)
[2024-06-21] MEDS: ASPIRIN EC 81 MG TABLET PO (08:52)
[2024-06-21] MEDS: PANTOPRAZOLE DR 40 MG TABLET PO ×2 (08:52→20:52)
[2024-06-21] MEDS: guaiFENesin ER 600 MG TAB PO ×2 (08:52→20:52)
[2024-06-21] MEDS: MEXILETINE 150 MG 150 EACH PO ×2 (08:53→20:52)
[2024-06-21] MEDS: SACUBITRIL VALSARTAN 1 EACH PO ×2 (08:53→20:52)
[2024-06-21] MEDS: AMIODARONE 200 MG TABLET 100 MG PO (08:53)
[2024-06-21] MEDS: FUROSEMIDE 40 MG TABLET 80 MG PO (08:53)
[2024-06-21] MEDS: APIXABAN 5 MG TABLET PO ×2 (08:53→20:52)
[2024-06-21] MEDS: SODIUM CHLORIDE 0.9% FLUSH 10 ML IV ×2 (08:54→20:49)
[2024-06-21] MEDS: LIDOCAINE 5% PATCH 1 EACH TOP (08:54)
[2024-06-21] MEDS: diazePAM 5 MG TABLET PO ×2 (08:58→20:57)
--- NOTE | 2024-06-21 10:46 | CM.DPC ---
DCP Cont: Per MD, pt likely to switch to PO steroids today towards further plan of discharge home with [facility] and family assist. SW discussed due to pt's hesitancy with discharging the hospital, once pt stable for d/c home might have to place discharge orders and if pt chooses to appeal discharge then at least the process could be started. 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 Albertina Ulloa MSW
[2024-06-21] MEDS: ONDANSETRON 4 MG/2 ML INJ IV ×3 (11:27→17:07)
--- NOTE | 2024-06-21 11:55 | PT.IPTN ---
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 (06/14/24) Physical Therapy Treatment Note M2 PT-IP Current Condition Start: 06/15/24 10:24 Freq: NEEDED Status: Active Protocol: Document 06/18/24 14:12 AB (Rec: 06/18/24 16:37 AB [id number]) Physical Therapy Current Condition Current Condition Evaluation Date 06/17/24 Treatment Diagnosis COPD exacerbation; difficulty in walking Onset Date 06/14/24 M3 PT-IP Subjective Start: 06/15/24 10:24 Freq: NEEDED Status: Active Protocol: Document 06/21/24 10:55 AB(2) (Rec: 06/21/24 12:51 AB(2) [id number]) Subjective Physical Therapy Visit Type Type Treatment Note Visit Start Time 10:55 Visit Stop Time 11:10 Number of VIRTUALIZATION ENGINEER Visits 0 M4 PT-IP Mobility and Gait Start: 06/15/24 10:24 Freq: NEEDED Status: Active Protocol: Document 06/21/24 10:55 AB(2) (Rec: 06/21/24 12:51 AB(2) [id number]) PT-Bed Mobility Assessment Supine to Sit Supine to Sit Independent Sit to Supine Sit to Supine Independent PT-Transfer Assessment Sit to and From Stand Sit to and from Stand Standby Assistance,1 Person Assistance,Use of Upper Extremities Equipment Transfer Assistive Device Gait Belt,Front Wheeled Walker Orthotic/Prosthetic Devices or Brace: No Comments Mobility Comments pt sitting on the bed. pt stated that she is not quite awake but agreed to do PT. informed pt regarding stair training but pt refused to do stairs today. pt completed sit to stand SBA and ambulated in room ~ 25 ft using FWW initially SBA but requiring CGA towards end of ambulation. pt c/o feeling numb all over towards end of ambulation and seems less alert than initially started. pt got back to bed. BP: 116/74 O2 sat: 96% with O2 on. pt just fell asleep. positioned pt . call light and table next to pt. talked to nurse and stated that pt received vallium and percocet this morning due to her anxiety. Gait Assessment Gait Gait Assistance Required: Standby Assistance,Contact Guard Assist Distance (Feet) 25 Able to Maintain Weight Bearing Status Yes During Gait Assistive Devices Assistive Device Front Wheeled Walker Orthotic/Prosthetic Devices or Brace: No Factors Limiting Gait Function Factors Limiting Gait Function Decreased Activity Tolerance, Poor Safety Awareness, Respiratory Distress M5 PT-IP Objective Assessments Start: 06/15/24 10:24 Freq: NEEDED Status: Active Protocol: Document 06/17/24 10:45 AB(2) (Rec: 06/17/24 12:57 AB(2) [id number]) Orientation Orientation/Cognition Level of Alertness Alert Orientation Name,Place,Situation Language Function Ability No Deficits Noted Safety Awareness Decreased Safety Awareness Memory Description No Deficits Noted Gross Range of Motion Lower Extremity ROM Assessment Within Functional Limits Strength Lower Extremity Strength Assessment Within Functional Limits Muscle Tone Muscle Tone WNL Yes M6 PT-IP Treatment Start: 06/15/24 10:24 Freq: NEEDED Status: Active Protocol: Document 06/21/24 10:55 AB(2) (Rec: 06/21/24 12:51 AB(2) [id number]) Physical Therapy Treatment Education Education Provided Safety M7 PT-IP Assessment and Plan Start: 06/15/24 10:24 Freq: NEEDED Status: Active Protocol: Document 06/21/24 10:55 AB(2) (Rec: 06/21/24 12:51 AB(2) [id number]) PT Summary Assessment and Plan Potential Rehabilitation Potential Fair Summary Impairments Pain,ROM,Strength,Balance, Coordination,Sensation, Cognition,Transfers,Gait, Activity Tolerance Progress Towards Goals Slow Progress due to Activity Tolerance Assessment Summary pt requiring SBA with mobility using FWW but continues to have decrease activity tolerance.pt plans to go home and family to assist her if needed. Goals Transfer Goal Independent,Front Wheeled Walker Gait Goal Independent,Front Wheel Walker Gait Distance 100 Other Goals up/down 5 steps R rail SBA up/down 3 steps B jay SBA Days to Meet Goals 10 Frequency of Treatment Frequency Of Treatment Once a Day Treatment Plan Physical Therapy Treatment Plan Transfer Training,Gait Training,Therapeutic Exercise, Balance Retraining,Discharge Planning,Neuromuscular Re-ed, Coordination Retraining Recommendations To Nursing Amount of Assist Needed Standby Assistance Discharge Recommendations PT Discharge Recommendations Home with Assistance,Home Health Other Discharge Recommendations may benefit from cardiopulmonary rehab Transportation Needs at Discharge Private Vehicle
[2024-06-21] MEDS: NALOXONE 0.4 MG/ML VIAL 0.2 MG IV ×2 (11:59→12:05)
[2024-06-21] MEDS: HYDROMORPHONE 0.5 MG INJ IV (18:54)
--- NOTE | 2024-06-21 19:59 | PC.NURSE ---
Late entry: At approximately 1145, pt was up to the bathroom and while in the bathroom the pt vomited and became pale. This RN gave zofran and assessed the pt including vital and checking blood sugar which was 255. This RN and the JUNIOR UNDERWRITER were able to get the pt up to the chair in the room with gait belt and 2 person max assist. Pt seemed to overly drowsy and had difficulty keeping eyes open. This RN called RN coordinator for assistance and then Phil was called overhead to the pt's room. Pt's VSS yet but pt was still having hard time keeping eyes open. Discussed with Dr. Villarreal about trying Narcan to see if the pt was over medicated. Pt's LOC did not change with Narcan. After discussing with Dr. Villarreal and RN coordinator the conclusion was that the pt was exhausted. Pt was able to get back into the bed with 2 person max at approximately 1215 and VSS were retaken and stable. Pt was allowed to sleep for approximately 2.5 hours and the pt's LOC approved and appeared to be back to baseline and Dr. Villarreal was notified. At approximately 1700 this evening the pt reported having a rash BLE that was itching with redness, toes on the R foot were red and there L foot appeared to be more red than the beginning of shift. Messaged Dr. Villarreal about pt's rash and pt's face appearing slightly swollen asking for repeat labs to rule out sepsis. Asked Dr. Villarreal again about repeating labs and no response. Informed Dr. Villarreal that the pt continued vomiting up pain meds and asked for something IV and he placed IV Dilaudid orders but no new labs were obtained respite follow up request.
[2024-06-21] MEDS: MONTELUKAST 10 MG TABLET PO (20:52)
[2024-06-22] VITALS (8 sets, daily range): BP systolic 107–123; BP diastolic 60–75; PULSE 61–75; RESP 18–20; TEMP 35.9–36.4; O2SAT 94–98
[2024-06-22] MEDS: methylPREDNISolone 125 MG/2 ML VIAL 60 MG IV ×3 (04:29→21:00)
[2024-06-22] MEDS: ALBUTEROL 2.5 MG/3 ML NEB (ADULT) INH ×4 (07:49→20:14)
[2024-06-22] MEDS: BUDESONIDE 0.5 MG/2 ML NEB INH ×2 (07:49→20:14)
[2024-06-22] MEDS: FLUTICASONE 120 SPRAY/16 GM SPRAY.SUSP NASAL ×2 (08:29→21:02)
[2024-06-22] MEDS: SACUBITRIL VALSARTAN 1 EACH PO ×2 (08:37→21:01)
[2024-06-22] MEDS: FUROSEMIDE 40 MG TABLET 80 MG PO (08:37)
[2024-06-22] MEDS: APIXABAN 5 MG TABLET PO ×2 (08:38→21:01)
[2024-06-22] MEDS: AMOXICILLIN/CLAV 875/125 MG 1 TAB PO ×2 (08:38→21:00)
[2024-06-22] MEDS: ASPIRIN EC 81 MG TABLET PO (08:38)
[2024-06-22] MEDS: OXYCODONE/ACETAMINOPHEN 5/325 TABLET 2 TAB PO ×3 (08:38→21:01)
[2024-06-22] MEDS: PANTOPRAZOLE DR 40 MG TABLET PO ×2 (08:39→21:01)
[2024-06-22] MEDS: AMIODARONE 200 MG TABLET 100 MG PO (08:39)
[2024-06-22] MEDS: LIDOCAINE 5% PATCH 1 EACH TOP (08:39)
[2024-06-22] MEDS: NYSTATIN POWDER 15GM 1 APPLIC TOP ×2 (08:40→21:02)
[2024-06-22] MEDS: INSULIN LISPRO 100 UNIT/ML 3ML VIAL SUBCUT ×3 (08:41→21:08)
[2024-06-22] MEDS: INSULIN GLARGINE 100 UNIT/ML 3ML PEN 25 UNIT SUBCUT ×2 (08:43→21:08)
[2024-06-22] MEDS: guaiFENesin ER 600 MG TAB PO ×2 (08:43→21:01)
[2024-06-22] MEDS: INSULIN LISPRO 100 UNIT/ML 3ML VIAL 8 UNIT SUBCUT ×3 (08:44→17:11)
--- NOTE | 2024-06-22 09:12 | PT-IP ANOTE ---
PT checks on pt who per chart, had a difficult day yesterday. Pt states that it was a difficult day yesterday and that today is also not good. PT and pt agree to hold PT today. Con't efforts next date and bring in step to try if pt able.
--- NOTE | 2024-06-22 09:28 | PM.PN.IH.1 ---
Subjective Subjective Date Patient Seen: 06/22/24 Time Patient Seen: 08:20 Interval history: Summary: 59 y/o F, with complicated PMH including Chronic Severe Systolic CHF, / Ischemic CM, s/p Cor stent and AICD on Entresto, Empagliflozin, Amiodarone, chronic a/c Apixaban, for severe Cardiomyopathy , Moderately severe COPD on home O2 and Home Bipap , HTN, DM 2, Morbid Obesity ( BMI 44) presented to ED with 2 days history of progressive Shortness of breath and wheezing. URI symptoms and a negative PCR. Being treated for COPD with slow improvement. S: She reports persistent shortness of breath. She was mildly confused yesterday and again today, having received Benadryl 50 mg last night. Exam Vital Signs (past 8 hours): - 06/22/24 04:15 06/22/24 07:55 06/22/24 08:00 Temperature 96.6 F L 96.7 F L Pulse Rate 62 75 66 Respiratory Rate 20 20 18 Blood Pressure 114/60 123/75 Pulse Oximetry 97 96 98 Oxygen Delivery Method Oximask Oxygen Flow Rate 3 3 3 Fraction of Inspired Oxygen 32 SaO2/FiO2 Ratio 287 Oxygen Delivery Method Oximask Oxygen Flow Rate 3 Narrative Exam Narrative: NAD, alert and oriented. Fluent speech. Lungs with scattered rhonchi, diffuse wheezing. Heart is regular, no murmur gallop or rub. Abdomen is soft, non distended. Extremities are free of edema. Bilateral dorsal hands with mild erythema and tenderness extending to the wrist. No proximal pain or swelling in the forearm or upper arm. Otherwise no rash or skin lesions. Objective Labs 06/21/24 06:00 06/21/24 06:00 [facility] Medical History Acute and chronic respiratory failure with hypoxia CAD (coronary artery disease) Cardiac arrhythmia Cervical radiculopathy Cervical spondylosis Chronic anticoagulation Congestive heart failure COPD (chronic obstructive pulmonary disease) Elevated brain natriuretic peptide (BNP) level Morbid obesity due to excess calories Neck pain Surgical History AICD (automatic cardioverter/defibrillator) present H/O heart artery stent Social History household members: spouse lives independently: Yes Smoking Status: Current some day smoker alcohol intake: current Assessment & Plan Assessment & Plan narrative: 1. Acute exacerbation of chronic obstructive pulmonary disease, present on admission and very slow to improve. Severe COPD , on supp O2 and Bipap at home. Etiology for exacerbation unclear/ Viral swabs for URI negative , including COVID, Flu, RSV Continue prn Albuterol Inh treatments Continue Solumedrol 60 mg IV reduced 2/10 to q8. Not ready yet but plan to change to oral prednisone with improvement in symptoms. If transitioned too early in the past will regress with regards to symptoms, not ready at this point, reassess again tomorrow. 2. Acute and chronic respiratory failure with hypoxia, present on admission and active. See above plan 3. Elevated lactic acid level, resolved. Probably sec to hypotensive event related to Hypoxia sec to COPD exacerbation Continue Zosyn 4. Chronic systolic heart failure, stable. Severe chronic Systolic CHF LVEF 25% Monitor Intake and Output Daily weight Continue Entresto, Empagloflozin, and home furosemide 5. Hypokalemia due to excessive renal loss of potassium, improved. Likely sec to large dose of Lasix at home and likely decreased oral intake Normalized back on home furosemide. 6. Chronic anticoagulation, stable. On Chronic A/C / Apixaban , sec to Severe Cardiomyopathy/ h/o Cardiac arrythmias, been on Amiodarone and Mexilitine , has AICD 7. Morbid obesity due to excess calories, stable. The patient is at much higher risk for medical and surgical complications because of their obesity. This increases the difficulty and complexity of medical and surgical interventions and increases the chances of poor outcomes such as morbidity and mortality. 8. Diabetes mellitus, type 2, improved. Starting on lantus this admission with admission hemoglobin A1c 7.8% Continue with sliding scale this happens with most of her admissions requiring steroids. patient gets very upset and threatens to leave if her diet is anything other than general while admitted here. Encouraged diabetic diet. 9. Acute bacterial sinusitis, worsening 06/20/2024. Started on amoxicillin/clavulanate 875 mg b.i.d. for 10 days on 06/20/2024 10. Left posterior hand phlebitis/cellulitis, new diagnosis 06/20/2024 Started on amoxicillin/clavulanate 875 mg b.i.d. for 10 days on 06/20/2024 PLAN: -continue amoxicillin/clavulanate 875 mg b.i.d. for 10 days on 06/20/2024 -continue bronchodilators and IV steroids, transitioned to oral when wheezing and respiratory status improved. -monitor glucose, started insulin and will continue. -monitor volume status and resumed oral Lasix. -monitor potassium and replace as needed. -continue anticoagulation. -decrease nightly Benadryl given confusion -continue Mucinex -advance activity GENET: 1-2 days. [employer] Document charge(s): No Charge Codes Subsequent inpatient/observation care: [id number]
[2024-06-22] MEDS: SODIUM CHLORIDE 0.9% FLUSH 10 ML IV ×2 (09:38→21:03)
[2024-06-22] MEDS: diazePAM 5 MG TABLET PO ×2 (15:09→21:01)
[2024-06-22] MEDS: ONDANSETRON 4 MG/2 ML INJ IV ×2 (17:09→21:23)
[2024-06-22] MEDS: LORazepam 2 MG/ML INJ 0.5 MG IV (17:19)
[2024-06-22] MEDS: KETOROLAC 30 MG/ML VIAL 15 MG IV (18:10)
[2024-06-22] MEDS: HYDROMORPHONE 0.5 MG INJ IV (18:11)
[2024-06-22 18:44] LABS: Appearance Urine UA CLEAR; Bilirubin Urine UA NEGATIVE (NEGATIVE); Color Urine UA YELLOW; Glucose Urine UA 3+ g/dL (Negative); Ketones Urine UA NEGATIVE (NEGATIVE); Leukocyte Esterase Urine UA NEGATIVE (NEGATIVE); Nitrite Urine UA NEGATIVE (Negative); Occult Blood Urine UA NEGATIVE (Negative); Protein Urine UA NEGATIVE (Negative); Specific Gravity Urine UA <=1.005 (1.000-1.035); Urobilinogen Urine UA 0.2 E.U./dL (0.2)
[2024-06-22 18:46] LABS: pH Urine UA 5.5 (4.5-8.0)
[2024-06-22 18:49] LABS: Bacteria Urine Occasional (0-1); RBC Urine 0-1/HPF (0-5/HPF); Squamous Epithelial Cell Urine 0-1 /HPF (0-5/HPF); Urine Volume 10mL (spun); WBC Urine 0-1/HPF (0-5/HPF)
[2024-06-22 18:50] LABS: Culture Indicated Urine Cult Not Indicated
[2024-06-22] MEDS: MEXILETINE 150 MG 150 EACH PO (21:00)
[2024-06-22] MEDS: MONTELUKAST 10 MG TABLET PO (21:01)
[2024-06-23] MEDS: KETOROLAC 30 MG/ML VIAL 15 MG IV (00:12)
[2024-06-23] MEDS: ONDANSETRON 4 MG/2 ML INJ IV (02:28)
--- NOTE | 2024-06-23 03:03 | PC.NURSE ---
Patient vomited on the floor x 1 while in the bathroom, zofran given with some effect.
[2024-06-23] MEDS: methylPREDNISolone 125 MG/2 ML VIAL 60 MG IV (03:49)
[2024-06-23] MEDS: OXYCODONE/ACETAMINOPHEN 5/325 TABLET 2 TAB PO ×2 (03:50→09:01)
[2024-06-23 03:53] VITALS: BP 123/70; PULSE 68; RESP 18; TEMP 36.1; O2SAT 97
--- NOTE | 2024-06-23 04:57 | PC.NURSE ---
Tried to start and IV to left forearm via ultrasound guided twice but unable too.
[2024-06-23 06:50] LABS: BUN Creatinine Ratio 40.2 (6-22); Blood Urea Nitrogen 45 mg/dL (7-17); Calcium 8.6 mg/dL (8.4-10.2); Carbon Dioxide 33 mmol/L (22-32); Chloride 92 mmol/L (98-107); Estimated Glomerular Filt Rate 56 mL/min (>60); Glucose 293 mg/dL (80-110); HEMOLYSIS 18 (0-50); Potassium 4.8 mmol/L (3.4-5.1); Sodium 130 mmol/L (137-145)
[2024-06-23 06:55] VITALS: PULSE 63; RESP 24; O2SAT 93
[2024-06-23] MEDS: BUDESONIDE 0.5 MG/2 ML NEB INH (06:55)
[2024-06-23] MEDS: ALBUTEROL 2.5 MG/3 ML NEB (ADULT) INH ×2 (06:55→12:19)
[2024-06-23 07:00] LABS: Add Manual Diff / Slide Review NO; Basophils Absolute Auto 0 /uL (0-100); Basophils Percent Auto 0.1 % (0-2); Eosinophils Absolute Auto 0 /uL (0-450); Hematocrit 40.6 % (36-46); Hemoglobin 12.9 g/dL (12.0-16.0); Lymphocytes Absolute Auto 1100 /uL (1100-4500); Mean Corpuscular HGB Conc 31.7 % (30-36); Mean Corpuscular Hemoglobin 26.4 PG (26-34); Mean Corpuscular Volume 83.3 fL (80-100); Monocytes Absolute Auto 600 /uL (0-900); Neutrophils Absolute Auto 16700 /uL (1500-7000); Neutrophils Percent Auto 90.9 % (50-75); Platelet Count 247 X10^3/uL (150-400); Red Blood Cell Count 4.87 X10^6/uL (4.0-5.2); White Blood Cell Count 18.4 X10^3/uL (4.5-11.0)
--- NOTE | 2024-06-23 07:35 | PM.PN.1 ---
Subjective Subjective Interval history: Summary: 59 y/o F, with complicated PMH including Chronic Severe Systolic CHF, / Ischemic CM, s/p Cor stent and AICD on Entresto, Empagliflozin, Amiodarone, chronic a/c Apixaban, for severe Cardiomyopathy , Moderately severe COPD on home O2 and Home Bipap , HTN, DM 2, Morbid Obesity ( BMI 44) presented to ED with 2 days history of progressive Shortness of breath and wheezing. URI symptoms and a negative PCR. Being treated for COPD with slow improvement. S: Exam Vital Signs (past 8 hours): - 06/23/24 03:53 06/23/24 06:55 Temperature 96.9 F L Pulse Rate 68 63 Respiratory Rate 18 24 Blood Pressure 123/70 Pulse Oximetry 97 93 Oxygen Delivery Method Oximask Oxygen Flow Rate 3 3 Fraction of Inspired Oxygen 32 SaO2/FiO2 Ratio 287 Oxygen Delivery Method Oximask Oxygen Flow Rate 3 Narrative Exam Narrative: NAD, alert and oriented. Fluent speech. Lungs are clear, normal rate and effort. Heart is regular, no murmur gallop or rub. Abdomen is soft, non distended. Extremities are free of edema. Objective Labs 06/23/24 06:05 06/23/24 06:05 Labs: Laboratory Results - last 24 hr 06/22/24 06/23/24 18:30 06:05 WBC 18.4 H RBC 4.87 Hgb 12.9 Hct 40.6 MCV 83.3 MCH 26.4 MCHC 31.7 RDW 20.0 H Plt Count 247 Neut % (Auto) 90.9 H Lymph % (Auto) 6.0 L [place] % (Auto) 3.0 Eos % (Auto) 0.0 L Baso % (Auto) 0.1 Neut # (Auto) 52308 H Lymph # (Auto) 1100 [place] # (Auto) 600 Eos # (Auto) 0 Baso # (Auto) 0 Sodium 130 L Potassium 4.8 Chloride 92 L Carbon Dioxide 33 H BUN 45 H Creatinine 1.12 H Estimated GFR 56 L BUN/Creatinine Ratio 40.2 H Glucose 293 H Calcium 8.6 Urine Color Yellow Urine Appearance Clear Urine pH 5.5 Ur Specific [place] <=1.005 Urine Protein Negative Urine Glucose (UA) 3+ H Urine Ketones Negative Urine Occult Blood Negative Urine Nitrate Negative Urine Bilirubin Negative Urine Urobilinogen 0.2 Ur Leukocyte Esterase Negative Urine RBC 0-1/hpf Urine WBC 0-1/hpf Ur Squamous Epith Cells 0-1 /hpf Urine Bacteria Occasional (0-1) Urine Yeast 0-1/hpf Ur Culture Indicated? Cult not indicated Vol Urine Centrifuged 10ml (spun) [facility] Medical History Cardiac arrhythmia Morbid obesity due to excess calories Elevated brain natriuretic peptide (BNP) level Acute and chronic respiratory failure with hypoxia Chronic anticoagulation Cervical spondylosis Neck pain Cervical radiculopathy CAD (coronary artery disease) Congestive heart failure COPD (chronic obstructive pulmonary disease) Surgical History AICD (automatic cardioverter/defibrillator) present H/O heart artery stent Social History household members: spouse lives independently: Yes Smoking Status: Current some day smoker alcohol intake: current Assessment & Plan Assessment & Plan narrative: 1. Acute exacerbation of chronic obstructive pulmonary disease, present on admission and very slow to improve. Severe COPD , on supp O2 and Bipap at home. Etiology for exacerbation unclear/ Viral swabs for URI negative , including COVID, Flu, RSV Continue prn Albuterol Inh treatments Continue Solumedrol 60 mg IV reduced /10 to q8. Not ready yet but plan to change to oral prednisone with improvement in symptoms. If transitioned too early in the past will regress with regards to symptoms, not ready at this point, reassess again tomorrow. 2. Acute and chronic respiratory failure with hypoxia, present on admission and active. See above plan 3. Elevated lactic acid level, resolved. Probably sec to hypotensive event related to Hypoxia sec to COPD exacerbation Continue Zosyn 4. Chronic systolic heart failure, stable. Severe chronic Systolic CHF LVEF 25% Monitor Intake and Output Daily weight Continue Entresto, Empagloflozin, and home furosemide 5. Hypokalemia due to excessive renal loss of potassium, improved. Likely sec to large dose of Lasix at home and likely decreased oral intake Normalized back on home furosemide. 6. Chronic anticoagulation, stable. On Chronic A/C / Apixaban , sec to Severe Cardiomyopathy/ h/o Cardiac arrythmias, been on Amiodarone and Mexilitine , has AICD 7. Morbid obesity due to excess calories, stable. The patient is at much higher risk for medical and surgical complications because of their obesity. This increases the difficulty and complexity of medical and surgical interventions and increases the chances of poor outcomes such as morbidity and mortality. 8. Diabetes mellitus, type 2, improved. Starting on lantus this admission with admission hemoglobin A1c 7.8% Continue with sliding scale this happens with most of her admissions requiring steroids. patient gets very upset and threatens to leave if her diet is anything other than general while admitted here. Encouraged diabetic diet. 9. Acute bacterial sinusitis, worsening 06/20/2024. Started on amoxicillin/clavulanate 875 mg b.i.d. for 10 days on 06/20/2024 10. Left posterior hand phlebitis/cellulitis, new diagnosis 06/20/2024 Started on amoxicillin/clavulanate 875 mg b.i.d. for 10 days on 06/20/2024 PLAN: -continue amoxicillin/clavulanate 875 mg b.i.d. for 10 days on 06/20/2024 -continue bronchodilators and IV steroids, transitioned to oral when wheezing and respiratory status improved. -monitor glucose, started insulin and will continue. -monitor volume status and resumed oral Lasix. -monitor potassium and replace as needed. -continue anticoagulation. -decrease nightly Benadryl given confusion -continue Mucinex -advance activity GENET: 1-2 days. Time-Based Coding :: [TOTAL MINUTES] spent with patient and on the chart (including review of chart, obtaining history, exam, reviewing outside data, placing orders, documenting exam and treatment plan, and counseling patient) on [DATE].
[2024-06-23 08:00] VITALS: BP 96/52; PULSE 62; RESP 18; TEMP 36.5; O2SAT 98
[2024-06-23] MEDS: guaiFENesin ER 600 MG TAB PO (09:00)
[2024-06-23] MEDS: AMIODARONE 200 MG TABLET 100 MG PO (09:00)
[2024-06-23] MEDS: ASPIRIN EC 81 MG TABLET PO (09:00)
[2024-06-23] MEDS: AMOXICILLIN/CLAV 875/125 MG 1 TAB PO (09:00)
[2024-06-23] MEDS: APIXABAN 5 MG TABLET PO (09:00)
[2024-06-23] MEDS: FUROSEMIDE 40 MG TABLET 80 MG PO (09:00)
[2024-06-23] MEDS: PANTOPRAZOLE DR 40 MG TABLET PO (09:00)
[2024-06-23] MEDS: SACUBITRIL VALSARTAN 1 EACH PO (09:01)
[2024-06-23] MEDS: LIDOCAINE 5% PATCH 1 EACH TOP (09:01)
[2024-06-23] MEDS: FLUTICASONE 120 SPRAY/16 GM SPRAY.SUSP NASAL (09:02)
[2024-06-23] MEDS: NYSTATIN POWDER 15GM 1 APPLIC TOP (09:02)
[2024-06-23] MEDS: INSULIN LISPRO 100 UNIT/ML 3ML VIAL 8 UNIT SUBCUT (09:04)
[2024-06-23] MEDS: INSULIN GLARGINE 100 UNIT/ML 3ML PEN 25 UNIT SUBCUT (09:05)
[2024-06-23] MEDS: INSULIN LISPRO 100 UNIT/ML 3ML VIAL SUBCUT ×2 (09:05→12:10)
--- NOTE | 2024-06-23 10:51 | P.DS_ITS ---
History of Present Illness History of Present Illness Chief complaint: SOB, feels sick Narrative: From H&P: Bernarda Chong, is a 59 y/o F, with complicated PMH including Chronic Severe Systolic CHF, / Ischemic CM, s/p Cor stent and AICD on Entresto, Empagliflozin, Amiodarone, chronic a/c Apixaban, for severe Cardiomyopathy , Moderately severe COPD on home O2 and Home Bipap , HTN, DM 2, Morbid Obesity ( BMI 44) presented to ED with 2 days history of progressive Shortness of breath and wheezing She had been using her inhalers Discharge Providers Provider Date of admission: 06/14/24 21:24 Discharge Date: 06/23/24 Primary care physician: Jolene Steen PA-C Consults: 06/14/24 21:43 Consult to Physical Therapy Evaluate & Treat Comment: Physician Instructions: Evaluate and Treat 06/15/24 02:01 Consult to [facility] - Intake Rn Routine Comment: Intake Rn Consult needed for:: Other reason (Comment) Comment: food insecurity. 06/18/24 08:40 Consult to Home Health Routine Comment: RN Reason For Exam: Home Health Services Discharge provider: Jai Thornton MD Summary Hospital Course Discharge Diagnosis: 1. Acute exacerbation of chronic obstructive pulmonary disease, present on admission and improved. Severe COPD , on supp O2 and Bipap at home. Etiology for exacerbation unclear/ Viral swabs for URI negative , including COVID, Flu, RSV Continue prn Albuterol Inh treatments 2. Acute and chronic respiratory failure with hypoxia, present on admission and improved. See above plan 3. Elevated lactic acid level, resolved. Probably sec to hypotensive event related to Hypoxia sec to COPD exacerbation Continue Zosyn 4. Chronic systolic heart failure, stable. Severe chronic Systolic CHF LVEF 25% Monitor Intake and Output Daily weight Continue Entresto, Empagloflozin, and home furosemide 5. Hypokalemia due to excessive renal loss of potassium, improved. Likely sec to large dose of Lasix at home and likely decreased oral intake Normalized back on home furosemide. 6. Chronic anticoagulation, stable. On Chronic A/C / Apixaban , sec to Severe Cardiomyopathy/ h/o Cardiac arrythmias, been on Amiodarone and Mexilitine , has AICD 7. Morbid obesity due to excess calories, stable. The patient is at much higher risk for medical and surgical complications because of their obesity. This increases the difficulty and complexity of medical and surgical interventions and increases the chances of poor outcomes such as morbidity and mortality. 8. Diabetes mellitus, type 2, improved. Starting on lantus this admission with admission hemoglobin A1c 7.8% Continue with sliding scale this happens with most of her admissions requiring steroids. patient gets very upset and threatens to leave if her diet is anything other than general while admitted here. Encouraged diabetic diet. 9. Acute bacterial sinusitis, worsening 06/20/2024. Started on amoxicillin/clavulanate 875 mg b.i.d. for 10 days on 06/20/2024 10. Left posterior hand phlebitis/cellulitis, new diagnosis 06/20/2024 Started on amoxicillin/clavulanate 875 mg b.i.d. for 10 days on 06/20/2024 Hospital Course: She was admitted with acute respiratory failure and COPD exacerbation. Her initial PCRs were negative but she did appear to be suffering from an acute respiratory illness. She was treated with empiric antibiotics and steroids as well the bronchodilators. She would very slow to improve reactive airways but ultimately did improve over the last 2 days of her hospitalization was felt to be close to her baseline and stable for discharge home. She was agreeable to this plan, she was very emotional and had a very difficult time in the hospital with her acute illness. Status at Discharge Cognitive/behavioral status at discharge: oriented Functional status at discharge: uses cane/walker Overall status at discharge: patient is not back to baseline Time Spent with Patient Time spent: Greater than 30 minutes Exam Vital Signs (past 8 hours): - 06/23/24 03:53 06/23/24 06:55 Temperature 96.9 F L Pulse Rate 68 63 Respiratory Rate 18 24 Blood Pressure 123/70 Pulse Oximetry 97 93 Oxygen Delivery Method Oximask Oxygen Flow Rate 3 3 Fraction of Inspired Oxygen 32 SaO2/FiO2 Ratio 287 Oxygen Delivery Method Oximask Oxygen Flow Rate 3 Narrative Exam Narrative: NAD, alert and oriented. Fluent speech. She was tearful. Lungs are clear, normal rate and effort. She does have some scattered expiratory wheezing but is moving good air today. Heart is regular, no murmur gallop or rub. Abdomen is soft, non distended. Extremities are free of edema. Objective ECG Impression: 1. Acute exacerbation of chronic obstructive pulmonary disease, present on admission and improved. Severe COPD , on supp O2 and Bipap at home. Etiology for exacerbation unclear/ Viral swabs for URI negative , including COVID, Flu, RSV 2. Acute and chronic respiratory failure with hypoxia, present on admission and improved. See above plan 3. Elevated lactic acid level, resolved. Probably sec to hypotensive event related to Hypoxia sec to COPD exacerbation Continue Zosyn 4. Chronic systolic heart failure, stable. Severe chronic Systolic CHF LVEF 25% Continue Entresto, Empagloflozin, and home furosemide 5. Hypokalemia due to excessive renal loss of potassium, improved. 6. Chronic anticoagulation, stable. On Chronic A/C / Apixaban , sec to Severe Cardiomyopathy/ h/o Cardiac arrythmias, been on Amiodarone and Mexilitine , has AICD 7. Morbid obesity due to excess calories, stable. 8. Diabetes mellitus, type 2, improved. Starting on lantus this admission with admission hemoglobin A1c 7.8% 9. Acute bacterial sinusitis, worsening 06/20/2024. Started on amoxicillin/clavulanate 875 mg b.i.d. for 10 days on 06/20/2024 10. Left posterior hand phlebitis/cellulitis, new diagnosis 06/20/2024 Started on amoxicillin/clavulanate 875 mg b.i.d. for 7 days on 06/20/2024 Imaging Multiple studies:: Radiologist's impression: CXR: No acute cardiopulmonary abnormality is seen. Stable cardiomegaly Labs 06/23/24 06:05 06/23/24 06:05 Labs: Laboratory Results - last 24 hr 06/22/24 06/23/24 18:30 06:05 WBC 18.4 H RBC 4.87 Hgb 12.9 Hct 40.6 MCV 83.3 MCH 26.4 MCHC 31.7 RDW 20.0 H Plt Count 247 Neut % (Auto) 90.9 H Lymph % (Auto) 6.0 L [place] % (Auto) 3.0 Eos % (Auto) 0.0 L Baso % (Auto) 0.1 Neut # (Auto) 30113 H Lymph # (Auto) 1100 [place] # (Auto) 600 Eos # (Auto) 0 Baso # (Auto) 0 Sodium 130 L Potassium 4.8 Chloride 92 L Carbon Dioxide 33 H BUN 45 H Creatinine 1.12 H Estimated GFR 56 L BUN/Creatinine Ratio 40.2 H Glucose 293 H Calcium 8.6 Urine Color Yellow Urine Appearance Clear Urine pH 5.5 Ur Specific [place] <=1.005 Urine Protein Negative Urine Glucose (UA) 3+ H Urine Ketones Negative Urine Occult Blood Negative Urine Nitrate Negative Urine Bilirubin Negative Urine Urobilinogen 0.2 Ur Leukocyte Esterase Negative Urine RBC 0-1/hpf Urine WBC 0-1/hpf Ur Squamous Epith Cells 0-1 /hpf Urine Bacteria Occasional (0-1) Urine Yeast 0-1/hpf Ur Culture Indicated? Cult not indicated Vol Urine Centrifuged 10ml (spun) [facility] Medical History Cardiac arrhythmia Morbid obesity due to excess calories Elevated brain natriuretic peptide (BNP) level Acute and chronic respiratory failure with hypoxia Chronic anticoagulation Cervical spondylosis Neck pain Cervical radiculopathy CAD (coronary artery disease) Congestive heart failure COPD (chronic obstructive pulmonary disease) Surgical History AICD (automatic cardioverter/defibrillator) present H/O heart artery stent Social History household members: spouse lives independently: Yes Smoking Status: Current some day smoker alcohol intake: current Discharge Assessment & Plan Assessment and Plan Assessment: 1. Acute exacerbation of chronic obstructive pulmonary disease, present on admission and improved. Severe COPD , on supp O2 and Bipap at home. Etiology for exacerbation unclear/ Viral swabs for URI negative , including COVID, Flu, RSV 2. Acute and chronic respiratory failure with hypoxia, present on admission and improved. See above plan 3. Elevated lactic acid level, resolved. Probably sec to hypotensive event related to Hypoxia sec to COPD exacerbation Continue Zosyn 4. Chronic systolic heart failure, stable. Severe chronic Systolic CHF LVEF 25% Continue Entresto, Empagloflozin, and home furosemide 5. Hypokalemia due to excessive renal loss of potassium, improved. 6. Chronic anticoagulation, stable. On Chronic A/C / Apixaban , sec to Severe Cardiomyopathy/ h/o Cardiac arrythmias, been on Amiodarone and Mexilitine , has AICD 7. Morbid obesity due to excess calories, stable. 8. Diabetes mellitus, type 2, improved. Starting on lantus this admission with admission hemoglobin A1c 7.8% 9. Acute bacterial sinusitis, worsening 06/20/2024. Started on amoxicillin/clavulanate 875 mg b.i.d. for 10 days on 06/20/2024 10. Left posterior hand phlebitis/cellulitis, new diagnosis 06/20/2024 Started on amoxicillin/clavulanate 875 mg b.i.d. for 7 days on 06/20/2024 Plan of Treatment: Discharge home with close outpatient follow up. Discharge Plan Discharge Plan Patient Disposition: Home Provider Discharge Comment: Stable for discharge home. Discharge orders & Medications Prescriptions: New oxycodone-acetaminophen 5-325 mg Tablet 1 tab PO Q6HR PRN (Reason: Pain, Severe (7-10)) Qty: 14 0RF amoxicillin-pot clavulanate 875-125 mg Tablet 1 tab PO BID Qty: 10 0RF Continued amiodarone 200 mg tablet 100 mg PO DAILY Patient Comments: TAKE 1/2 (ONE-HALF) TABLET BY MOUTH ONCE DAILY Eliquis 5 mg tablet 5 mg PO BID Patient Comments: TAKE 1 TABLET BY MOUTH TWICE DAILY promethazine 25 mg tablet 25 mg PO Q6H PRN (Reason: Nausea) Patient Comments: TAKE 1 TABLET BY MOUTH EVERY 6 HOURS multivitamin Tablet 1 tab PO DAILY mexiletine 150 mg capsule 150 mg PO BID budesonide 0.5 mg/2 mL suspension for nebulization 0.5 mg inhalation BID montelukast 10 mg tablet 10 mg PO BEDTIME Jardiance 10 mg tablet 10 mg PO DAILY sacubitril-valsartan [Entresto] 24-26 mg tablet 1 tab PO BID pantoprazole [Protonix] 40 mg tablet,delayed release (DR/EC) 40 mg PO BID Qty: 60 2RF aspirin 81 mg Tablet 81 mg PO DAILY cetirizine [All Day Allergy (cetirizine)] 10 mg Tablet 10 mg PO DAILY albuterol sulfate 90 mcg/actuation HFA aerosol inhaler 2 puff INHALATION Q4HR PRN (Reason: sob) Patient Comments: INHALE 2 PUFFS BY MOUTH UP TO EVERY 4 HOURS NEEDED FOR WHEEZING , COUGH OR SHORTNESS OF BREATH. USE WITH SPACER. nystatin 100,000 unit/gram Powder 1 applic TOPICAL BID diazepam [Valium] 5 mg tablet 5 mg PO BID PRN (Reason: anxiety) Qty: 14 0RF fluticasone propionate 50 mcg/actuation spray,suspension 2 spray INTRANASAL BID furosemide 80 mg tablet 80 mg PO DAILY Follow up/Referrals: Jolene Steen PA-C [Primary Care Provider] - Discharge Health Status Multidrug resistant organism: No MDRO Diet/Activity/Treatments Diet: Regular Visit Report/Discharge Packet Instructions: DI for Chronic Obstructive Pulmonary Disease Stand Alone Forms: Patient Portal/API Discharge Data Primary Care Provider: Jolene Steen
--- NOTE | 2024-06-23 11:46 | PC.NURSE ---
Pt is crying and upset about going home. States she feels that they don't want me here. Brionna BONILLA Director-in to see Pt and discussed concerns. Pt also states she has no heat in the 5th wheel she is living in and it is falling apart, she only has 7 minutes of hot water from her hot water heater and that her vehicle does not run. Notified Albertina VILLEGAS to see if she can help with resources for this Pt.
[2024-06-23] MEDS: INSULIN LISPRO 100 UNIT/ML 3ML VIAL 10 UNIT SUBCUT (12:11)
[2024-06-23] MEDS: predniSONE 20 MG TABLET 40 MG PO (12:18)
--- NOTE | 2024-06-23 12:19 | CM.DPC ---
DCP Discharge Home with HH Per MD, pt on PO meds and baseline O2 and medically stable to d/c home today with HH. Per PT/OT, continue to recommend home with HH. sfdc architect Brionna met bedside again with pt and discussed pt's ongoing concerns and tearfulness and pt felt heard and agreeable to d/c today. SW met bedside with pt and explained role and pt tearful but agreeable with d/c home and given her IMM again and pt agreeable with continuing with [facility] and confirms she feels she needs some counseling/therapy support. Pt states she needs assist with transport home through her [employer] and provided [facility] number for SW to call. SW called [facility] and they confirm pt has some transportation through her insurance but would need to call [employer] [phone] to attempt to schedule transport. Per RN, pt now has family to provide transport and confirmed they will bring her oxygen tank for transport and they are on their way in for this afternoon. RT updated. YESSI updated [facility] on discharge home today and sent d/c summary, new F2F and HH orders to include RN and new AERIAL GUNNER SUPERINTENDENT as pt needing community resources. YESSI confirmed that pt has been in contact recently with [facility] and [facility] for assist with resources for basic needs (pt told RN that in Mar and Apr they struggled with no heat in their RV and food insecurity). SW also provided [facility] for MH counseling and further community resources for basic needs. Plan: Patient to discharge home today via family POV and [facility] to follow with RN and A[employer] GUNNER SUPERINTENDENT for ongoing community resources. GEORGE Mcclain
[2024-06-23] MEDS: OXYCODONE IR 5 MG TABLET PO (12:33)
[2024-06-23] MEDS: diazePAM 5 MG TABLET PO (12:33)
== END 2024-06-23 13:00 | disposition home health service (06) | DRG 190 ==
LOC: ED 19:42 → AC 21:25 → ICU 06-15 00:16 → AC 06-19 19:08
PROVIDERS: Emergency Medicine; Hospitalist; Internal Medicine; Admitting Provider Hospitalist; Emergency Provider Student in an Organized Health Care Education/Training Program; Family Provider Internal Medicine; PCP Physician Assistant Medical; Referring Provider Student in an Organized Health Care Education/Training Program; Visit Provider Hospitalist
DX: J44.1 Chronic obstructive pulmonary disease with (acute) exacerbation (principal); J96.21 Acute and chronic respiratory failure with hypoxia; Z68.41 Body mass index [BMI] 40.0-44.9, adult; L03.114 Cellulitis of left upper limb; I50.22 Chronic systolic (congestive) heart failure; R00.0 Tachycardia, unspecified; F17.200 Nicotine dependence, unspecified, uncomplicated; E87.6 Hypokalemia; E66.01 Morbid (severe) obesity due to excess calories; R79.89 Other specified abnormal findings of blood chemistry; I25.5 Ischemic cardiomyopathy; E11.65 Type 2 diabetes mellitus with hyperglycemia; I11.0 Hypertensive heart disease with heart failure; J01.90 Acute sinusitis, unspecified; I80.8 Phlebitis and thrombophlebitis of other sites; I25.10 Atherosclerotic heart disease of native coronary artery without angina pectoris; F41.9 Anxiety disorder, unspecified; Z99.81 Dependence on supplemental oxygen; Z79.01 Long term (current) use of anticoagulants; Z95.5 Presence of coronary angioplasty implant and graft; Z79.84 Long term (current) use of oral hypoglycemic drugs; Z95.810 Presence of automatic (implantable) cardiac defibrillator
CPT/HCPCS: 0241U; 36415; 36600; 71045; 80048; 80053; 81001; 82805; 82947; 82962; 83036; 83605; 83735; 83880; 84145; 84484; 85025; 85610; 87040; 87493; 87797; 93005; 94640; 94660; 94760; 94762; 96361; 96365; 96366; 96367; 96368; 96375; 97116; 97162; 97530; 99285; C8929; J0696; J1171; J1815; J1885; J2060; J2310; J2405; J2543; J2919; J3475; J7613; Q9957

== ENCOUNTER 2024-09-24 09:13 | Inpatient (IN) | payer MEDICARE, MEDICAID, SELFPAY ==
[2024-06-15 01:35] VITALS: BMI 42.5
[2024-06-16 19:19] VITALS: PULSE 81; RESP 23; O2SAT 95
[2024-09-24] VITALS (93 sets, daily range): BP systolic 67–136; BP diastolic 30–64; PULSE 68–101; RESP 20–46; TEMP 36.6–37.1; O2SAT 85–99; BMI 48.0; BMI 41.0
--- NOTE | 2024-09-24 09:38 | ED_ITS ---
HPI - Chest Pain General Chief Complaint: Shortness of Breath/Dyspnea Stated Complaint: CHEST CONGESTION, BODY ACHE Time Seen by Provider: 09/24/24 09:24 History of Present Illness HPI narrative: 59-year-old female history of COPD on 3 L O2 nasal cannula, pacemaker/defibrillator, CHF, hypertension with most recent echo with showing ejection fraction of 25% presents with bodyaches, headache, nausea, vomiting, diarrhea, for the past 3 days unable to hold anything down. Patient reports hurting all over including chest pain back pain abdominal pain and just feeling sore all over. She does have a productive cough of yellow sputum production. Other than what is stated 14 point review of system is negative. Related Data Home Medications Medication Instructions Recorded Confirmed amiodarone 200 mg tablet 100 mg PO DAILY 07/17/22 06/15/24 apixaban 5 mg tablet (Eliquis) 5 mg PO BID 07/17/22 06/15/24 multivitamin 1 tab PO DAILY 08/29/22 06/15/24 promethazine 25 mg tablet 25 mg PO Q6H PRN Nausea 08/29/22 06/15/24 fluticasone propionate 50 2 spray intranasal BID 11/07/22 06/15/24 mcg/actuation nasal spray,suspension budesonide 0.5 mg/2 mL suspension 0.5 mg inhalation BID 08/01/23 06/15/24 for nebulization empagliflozin 10 mg tablet 10 mg PO DAILY 08/01/23 06/15/24 (Jardiance) mexiletine 150 mg capsule 150 mg PO BID 08/01/23 06/15/24 montelukast 10 mg tablet 10 mg PO BEDTIME 08/01/23 06/15/24 sacubitril 24 mg-valsartan 26 mg 1 tab PO BID 08/01/23 06/15/24 tablet (Entresto) furosemide 80 mg tablet 80 mg PO DAILY 10/15/23 06/15/24 aspirin 81 mg tablet 81 mg PO DAILY 05/09/24 06/15/24 cetirizine 10 mg tablet (All Day 10 mg PO DAILY 05/09/24 06/15/24 Allergy (cetirizine)) albuterol sulfate 90 mcg/actuation 2 puff inhalation Q4HR PRN sob 06/15/2401/29 aerosol inhaler nystatin 100,000 unit/gram topical 1 applic topical BID 06/15/24 06/15/24 powder Previous Rx's Medication Instructions Recorded pantoprazole 40 mg tablet,delayed 40 mg PO BID #60 tabs 10/07/23 release (Protonix) amoxicillin 875 mg-potassium 1 tab PO BID #10 tabs 06/23/24 clavulanate 125 mg tablet diazepam 5 mg tablet (Valium) 5 mg PO BID PRN anxiety #14 tabs 06/23/24 oxycodone-acetaminophen 5 mg-325 1 tab PO Q6HR PRN Pain, Severe 06/23/24 mg tablet (7-10) #14 tabs Allergies Allergy/AdvReac Type Severity Reaction Status Date / Time bee pollen Allergy Severe Anaphylaxis Verified 09/24/24 09:52 Fish Containing Products Allergy Severe Anaphylaxis Verified 09/24/24 09:52 shellfish derived Allergy Severe Anaphylaxis Verified 09/24/24 09:52 codeine Allergy Verified 09/24/24 09:52 erythromycin base Allergy Verified 09/24/24 09:52 latex Allergy Rash Verified 09/24/24 09:52 pamabrom [From Midol] Allergy Verified 09/24/24 09:52 doxycycline AdvReac Vomiting Verified 09/24/24 09:52 Review of Systems Review of Systems ROS Unobtainable: All systems reviewed & are unremarkable except as noted in HPI and below Patient History Medical History Cardiac arrhythmia Morbid obesity due to excess calories Elevated brain natriuretic peptide (BNP) level Acute and chronic respiratory failure with hypoxia Chronic anticoagulation Cervical spondylosis Neck pain Cervical radiculopathy CAD (coronary artery disease) Congestive heart failure COPD (chronic obstructive pulmonary disease) Surgical History AICD (automatic cardioverter/defibrillator) present H/O heart artery stent Social History household members: spouse lives independently: Yes alcohol intake: current tobacco type: cigarettes alcohol intake frequency: holidays/special occasions only Exam Narrative Exam Narrative: GENERAL: [59] year old patient appears stated age. Well-developed patient, in mild distress. HEAD: Atraumatic. Normocephalic. EYES: Pupils equal round and reactive. Extraocular motions intact. No scleral icterus. No injection or drainage. ENT: Nose without bleeding, purulent drainage. Throat without erythema, tonsillar hypertrophy or exudate. Airway patent. NECK: Trachea midline. Non tender CARDIOVASCULAR: Regular rate and rhythm without murmurs, gallops, or rubs. RESPIRATORY: R sided crackles GASTROINTESTINAL: Abdomen soft, non-tender, nondistended. EXTREMITIES: No edema or joint tenderness. BACK: Nontender without deformity or crepitance. No flank tenderness. NEURO: AOx3. SKIN: No rash or erythema of visible areas Initial Vital Signs Initial Vital Signs: Vital Signs Pulse Rate 92 H 09/24/24 09:13 Respiratory Rate 31 H 09/24/24 09:13 Blood Pressure 67/43 L 09/24/24 09:13 Pulse Oximetry 97 09/24/24 09:13 Oxygen Delivery Method Nasal Cannula 09/24/24 09:13 Oxygen Flow Rate 3 09/24/24 09:13 Course Orders Ordered: ED Orders 09/24/24 09:20 Covid-19 + FLU A/B + RSV - PCR Stat 09/24/24 09:44 Venous Blood Gas STAT 09/24/24 09:54 Procalcitonin Stat 09/24/24 10:15 Venous Blood Gas Routine 09/24/24 10:56 XR chest for PICC 1V Stat Lactated Ringer's (Lactated Ringers) 1,000 mls @ 500 mls/hr IV BOLUS ONE Stop: 09/24/24 11:43 Discontinued Medications Albuterol/Ipratropium (Albuterol/Ipratropium 3 Ml Ampul) 6 ml INH NOW ONE Stop: 09/24/24 11:33 Last Admin: 09/24/24 11:34 Dose: 6 ml Documented By: BARBARA Vancomycin HCl 1,000 mg/ (Sodium Chloride) 250 mls @ 250 mls/hr IV NOW ONE Stop: 09/24/24 09:45 Piperacillin Sod/Tazobactam (Sod 4.5 gm/ Sodium Chloride) 100 mls @ 200 mls/hr IV NOW ONE Stop: 09/24/24 09:45 Vital Signs Vital signs: Vital Signs - 8 hr 09/24/24 09:13 09/24/24 09:25 09/24/24 09:28 Pulse Rate 92 H 95 H 88 Respiratory Rate 31 H Blood Pressure 67/43 L Pulse Oximetry 97 99 98 Oxygen Delivery Method Nasal Cannula Oximask Oxygen Flow Rate 3 3 09/24/24 09:28 09/24/24 09:30 09/24/24 09:32 Pulse Rate 98 H 94 H Respiratory Rate Blood Pressure 71/51 L Pulse Oximetry 99 99 Oxygen Delivery Method Oximask Oximask Oxygen Flow Rate 3 3 09/24/24 09:32 09/24/24 09:46 09/24/24 09:46 Pulse Rate 94 H Respiratory Rate 32 H Blood Pressure 84/41 L 67/43 L Pulse Oximetry 98 Oxygen Delivery Method Oximask Oxygen Flow Rate 3 09/24/24 10:00 09/24/24 10:14 09/24/24 10:14 Pulse Rate 92 H 93 H Respiratory Rate 33 H 24 Blood Pressure 86/44 L Pulse Oximetry 98 97 Oxygen Delivery Method Oximask Oximask Oxygen Flow Rate 3 3 09/24/24 10:15 09/24/24 10:15 09/24/24 10:30 Pulse Rate 93 H 101 H Respiratory Rate Blood Pressure 78/47 L Pulse Oximetry 97 98 Oxygen Delivery Method Oximask Oxygen Flow Rate 3 MDM - Chest Pain Lab Data Labs: Lab Results 09/24/24 09/24/24 09/24/24 Range/Units 09:20 09:54 10:15 VBG pH 7.41 (7.33-7.43) VBG pCO2 46.4 (45-50) mmHg VBG pO2 49 H (35-45) mmHg VBG HCO3 30 H (24-28) mmol/L VBG Total CO2 29 (24-29) mmol/L VBG O2 Saturation 85 H (70-75) % VBG Base Excess 4.1 H (0-4) mmol/L FiO2 % 36.0 % % Procalcitonin 0.504 H (<0.5) ng/mL SARS-CoV-2 (PCR) Negative (Negative) Influenza A (RT-PCR) Flu a negative (NEGATIVE) Influenza B (RT-PCR) Flu b negative (NEGATIVE) RSV (PCR) Negative (Negative) Point of Care Testing Stool Occult Blood Negative Urine Dip Bedside Urine Glucose 1000 mg/dl Bedside Urine Bilirubin - Negative Bedside Urine Ketone - Negative Urine Specific Zeigler 1.010 Bedside Urine Occult Blood - Negative Bedside Urine pH 6.0 Bedside Urine Protein - Negative Bedside Urine Urobilinogen - Negative Bedside Urine Nitrite - Negative Bedside Urine Leukocytes - Negative Esterase Imaging Data Chest x-ray: Radiologist's Impression: [address] [address] XRay Report Signed Patient: Bernarda Chong MR#: [id number] : 1965 Acct:[id number] Age/Sex: 59 / F Date of Service: 09/24/24 Loc: ED Accession Number: [id number] Procedure: XR chest for PICC 1V Ordering Provider: Yonatan Brewer D.O. PROCEDURE: XR CHEST FOR PICC 1V INDICATIONS: line placement COMPARISON: [facility], , XR CHEST 1V, 06/14/2024, 17:35. FINDINGS: PICC was placed by the intravenous therapy team from the right side. Fluoroscopic spot film demonstrates the tip of PICC projecting to the area of SVC. IMPRESSION: Tip of PICC projects to the area of SVC. Dictated by: Lorenzo Nair M.D. on 09/24/2024 at 11:25 Approved by: Lorenzo Nair M.D. on 09/24/2024 at 11:26 CT scan - chest: Radiologist's Impression: [address] [address] [address] Scan Report Signed Patient: Bernarda Chong MR#: [id number] : 1965 Acct:[id number] Age/Sex: 59 / F Date of Service: 09/24/24 Loc: ED Accession Number: [id number] Procedure: CT angio chest PE protocol Ordering Provider: Yonatan Brewer D.O. PROCEDURE: CT ANGIO CHEST PE PROTOCOL INDICATIONS: chest/back pain/sob TECHNIQUE: After the administration of intravenous contrast, 2 mm thick sections acquired from the pulmonary apices to the posterior costophrenic angles. 3-dimensional maximum intensity projection (MIP) coronal and sagittal reformats were then acquired through the thorax. For radiation dose reduction, the following was used: automated exposure control, adjustment of mA and/or kV according to patient size. COMPARISON: None. FINDINGS: Image quality: Diagnostic. Pulmonary arteries: Suboptimal opacification of pulmonary arteries. Bilateral segmental and subsegmental pulmonary artery branches are poorly opacified, small pulmonary emboli cannot be excluded. Lower Neck: No enlarged lymph nodes. Thyroid: No thyroid nodules which require sonographic follow up, per consensus guidelines. Axillae: No enlarged lymph nodes. Chest Wall: Left chest wall pacemaker is seen.. Bones: No aggressive appearing bony lesions. Degenerative disc disease throughout thoracic spine is seen. Lungs and Pleura: No pneumothorax or pleural effusions. Moderate size airspace opacity in anterior medial aspect of right upper lobe is seen extending to right hilar region. Mild bibasilar dependent atelectasis is also noted. Heart: Heart size is enlarged. No pericardial effusion. Thoracic Vessels: No aortic aneurysm. Mediastinum and Litzy: No enlarged lymph nodes. Esophagus: No wall thickening. No hiatal hernia. Upper Abdomen: Visualized upper abdomen solid organs and bowel loops appear normal. Gallbladder is surgically absent. IMPRESSION: 1. Suboptimal opacification of pulmonary arteries. No gross large central pulmonary emboli. Bilateral segmental and subsegmental pulmonary artery branches are poorly opacified. Small pulmonary emboli cannot be excluded. No thoracic aortic aneurysm or gross dissection. 2. Moderate size right upper lobe pneumonia extending to right hilar region. Follow-up until resolution is recommended to rule out underlying neoplastic process. Mild dependent atelectasis in posterior aspect of bilateral lower lobes. No pleural effusion or pneumothorax. 3. Cardiomegaly, no pericardial effusion. Pacemaker leads in place. No mediastinal or hilar lymphadenopathy. Dictated by: Lorenzo Nair M.D. on 09/24/2024 at 13:20 Approved by: Lorenzo Nair M.D. on 09/24/2024 at 13:28 ECG Data Interpretation: V paced HR 95 QRS 178 QT 472 NO stemi Unchanged from 06/14/24 MDM Narrative Medical decision making narrative: All lab work, vital signs, nurse triage note, medication list, previous ER visits, and all scans reviewed. Patient given vancomycin, rocephin and Zosyn here, k rider and mag ridrder and started on Levophed and given 2 L of fluid but concern for overload and stopped. Differential diagnosis sepsis septic shock pneumonia COVID flu RSV dehydration CHF COPD. Case discussed with Dr. Thornton hospitalist who has graciously accepted patient for inpatient admission ICU status. CRITICAL CARE TIME 30MINS. Picc line placed. Discharge Plan Departure Patient Disposition: Admitted As Inpatient Clinical Impression: Hypokalemia, Hypomagnesemia Pneumonia Qualifiers: Pneumonia type: due to Pneumococcus Laterality: right Lung location: upper lobe of lung Qualified Code(s): J13 - Pneumonia due to Streptococcus pneumoniae Prescriptions: No Action amiodarone 200 mg tablet 100 mg PO DAILY Patient Comments: TAKE 1/2 (ONE-HALF) TABLET BY MOUTH ONCE DAILY Eliquis 5 mg tablet 5 mg PO BID Patient Comments: TAKE 1 TABLET BY MOUTH TWICE DAILY promethazine 25 mg tablet 25 mg PO Q6H PRN (Reason: Nausea) Patient Comments: TAKE 1 TABLET BY MOUTH EVERY 6 HOURS multivitamin Tablet 1 tab PO DAILY mexiletine 150 mg capsule 150 mg PO BID budesonide 0.5 mg/2 mL suspension for nebulization 0.5 mg inhalation BID montelukast 10 mg tablet 10 mg PO BEDTIME Jardiance 10 mg tablet 10 mg PO DAILY sacubitril-valsartan [Entresto] 24-26 mg tablet 1 tab PO BID pantoprazole [Protonix] 40 mg tablet,delayed release (DR/EC) 40 mg PO BID Qty: 60 2RF aspirin 81 mg Tablet 81 mg PO DAILY cetirizine [All Day Allergy (cetirizine)] 10 mg Tablet 10 mg PO DAILY albuterol sulfate 90 mcg/actuation HFA aerosol inhaler 2 puff INHALATION Q4HR PRN (Reason: sob) Patient Comments: INHALE 2 PUFFS BY MOUTH UP TO EVERY 4 HOURS NEEDED FOR WHEEZING , COUGH OR SHORTNESS OF BREATH. USE WITH SPACER. nystatin 100,000 unit/gram Powder 1 applic TOPICAL BID oxycodone-acetaminophen 5-325 mg Tablet 1 tab PO Q6HR PRN (Reason: Pain, Severe (7-10)) Qty: 14 0RF diazepam [Valium] 5 mg tablet 5 mg PO BID PRN (Reason: anxiety) Qty: 14 0RF amoxicillin-pot clavulanate 875-125 mg Tablet 1 tab PO BID Qty: 10 0RF fluticasone propionate 50 mcg/actuation spray,suspension 2 spray INTRANASAL BID furosemide 80 mg tablet 80 mg PO DAILY Referrals: Jolene Steen PA-C [Primary Care Provider] - Admit Date/Time: 09/24/24 13:43 Admit Provider: Jai Thornton
--- NOTE | 2024-09-24 09:57 | EKG_ITS ---
[address] [address] Test Date: 2024-09-24 Pat Name: Bernarda Chong Department: Room: Gender: Female Emergency Management Director: ESTELLA : 1965 Requested By: Order Number: [id number] Reading MD: Jai Thornton Measurements Intervals [place] Rate: 95 P: -9 [place]: QRS: 269 QRSD: 178 T: 101 QT: 472 QTc: 593 Interpretive Statements Ventricular-paced rhythm Electronically Signed On 09-24-2024 16:23:06 PDT by Jai Thornton
--- NOTE | 2024-09-24 10:15 | PC.NURSE ---
DI RN at bedside working on PICC. Multiple attempts made by staff for access unsuccessful. Pt history of difficult access requiring PICC in past
[2024-09-24 10:19] LABS: Base Excess VBG 4.1 mmol/L (0-4); HCO3 VBG 30 mmol/L (24-28); Oxygen Saturation VBG 85 % (70-75); PCO2 VBG 46.4 mmHg (45-50); PO2 VBG 49 mmHg (35-45); Total CO2 VBG 29 mmol/L (24-29); pH VBG 7.41 (7.33-7.43)
[2024-09-24 10:36] LABS: Procalcitonin 0.504 ng/mL (<0.5)
[2024-09-24 10:44] LABS: Influenza A - CEPHEID Flu A NEGATIVE (NEGATIVE); Influenza B - CEPHEID Flu B NEGATIVE (NEGATIVE); Respiratory Syncytial Virus Negative (Negative)
[2024-09-24 10:45] LABS: COVID-19 CEPHEID 4-PLEX PCR Negative (Negative)
--- NOTE | 2024-09-24 10:56 | DI.RAD.S_ITS ---
PROCEDURE: XR CHEST FOR PICC 1V INDICATIONS: line placement COMPARISON: [facility], CR, XR CHEST 1V, 06/14/2024, 17:35. FINDINGS: PICC was placed by the intravenous therapy team from the right side. Fluoroscopic spot film demonstrates the tip of PICC projecting to the area of SVC. IMPRESSION: Tip of PICC projects to the area of SVC. Dictated by: Lorenzo Nair M.D. on 09/24/2024 at 11:25 Approved by: Lorenzo Nair M.D. on 09/24/2024 at 11:26
[2024-09-24] MEDS: LACTATED RINGERS 1,000 ML 500 ML IV (11:27)
[2024-09-24] MEDS: PIPERACILLIN/TAZO 4.5 GM in SODIUM CHLORIDE 0.9% 100 ML IV (11:28)
[2024-09-24] MEDS: ALBUTEROL/IPRATROPIUM 3 ML AMPUL 6 ML INH (11:34)
--- NOTE | 2024-09-24 12:02 | PC.NURSE ---
IV fluids paused per provider verbal order. rt CHF
[2024-09-24] MEDS: VANCOMYCIN 1,000 MG in SODIUM CHLORIDE 0.9% 250 ML 250 MG IV (12:15)
[2024-09-24 12:19] LABS: Add Manual Diff / Slide Review NO; Basophils Absolute Auto 100 /uL (0-100); Basophils Percent Auto 0.8 % (0-2); Eosinophils Absolute Auto 0 /uL (0-450); Eosinophils Percent Auto 0.7 % (2-4); Hematocrit 39.1 % (36-46); Hemoglobin 12.5 g/dL (12.0-16.0); Lymphocytes Absolute Auto 1100 /uL (1100-4500); Lymphocytes Percent Auto 15.8 % (25-40); Mean Corpuscular HGB Conc 31.9 % (30-36); Mean Corpuscular Hemoglobin 25.8 PG (26-34); Mean Corpuscular Volume 80.8 fL (80-100); Monocytes Absolute Auto 1200 /uL (0-900); Monocytes Percent Auto 18.8 % (3-14); Neutrophils Absolute Auto 4200 /uL (1500-7000); Neutrophils Percent Auto 63.9 % (50-75); Platelet Count 223 X10^3/uL (150-400); Red Blood Cell Count 4.84 X10^6/uL (4.0-5.2); Red Cell Distribution Width 19.4 % (11.6-14.8); White Blood Cell Count 6.6 X10^3/uL (4.5-11.0)
--- NOTE | 2024-09-24 12:21 | DI.CT.S_ITS ---
PROCEDURE: CT ANGIO CHEST PE PROTOCOL INDICATIONS: chest/back pain/sob TECHNIQUE: After the administration of intravenous contrast, 2 mm thick sections acquired from the pulmonary apices to the posterior costophrenic angles. 3-dimensional maximum intensity projection (MIP) coronal and sagittal reformats were then acquired through the thorax. For radiation dose reduction, the following was used: automated exposure control, adjustment of mA and/or kV according to patient size. COMPARISON: None. FINDINGS: Image quality: Diagnostic. Pulmonary arteries: Suboptimal opacification of pulmonary arteries. Bilateral segmental and subsegmental pulmonary artery branches are poorly opacified, small pulmonary emboli cannot be excluded. Lower Neck: No enlarged lymph nodes. Thyroid: No thyroid nodules which require sonographic follow up, per consensus guidelines. Axillae: No enlarged lymph nodes. Chest Wall: Left chest wall pacemaker is seen.. Bones: No aggressive appearing bony lesions. Degenerative disc disease throughout thoracic spine is seen. Lungs and Pleura: No pneumothorax or pleural effusions. Moderate size airspace opacity in anterior medial aspect of right upper lobe is seen extending to right hilar region. Mild bibasilar dependent atelectasis is also noted. Heart: Heart size is enlarged. No pericardial effusion. Thoracic Vessels: No aortic aneurysm. Mediastinum and Litzy: No enlarged lymph nodes. Esophagus: No wall thickening. No hiatal hernia. Upper Abdomen: Visualized upper abdomen solid organs and bowel loops appear normal. Gallbladder is surgically absent. IMPRESSION: 1. Suboptimal opacification of pulmonary arteries. No gross large central pulmonary emboli. Bilateral segmental and subsegmental pulmonary artery branches are poorly opacified. Small pulmonary emboli cannot be excluded. No thoracic aortic aneurysm or gross dissection. 2. Moderate size right upper lobe pneumonia extending to right hilar region. Follow-up until resolution is recommended to rule out underlying neoplastic process. Mild dependent atelectasis in posterior aspect of bilateral lower lobes. No pleural effusion or pneumothorax. 3. Cardiomegaly, no pericardial effusion. Pacemaker leads in place. No mediastinal or hilar lymphadenopathy. Dictated by: Lorenzo Nair M.D. on 09/24/2024 at 13:20 Approved by: Lorenzo Nair M.D. on 09/24/2024 at 13:28
[2024-09-24 12:25] LABS: INR 1.4 (0.9-1.3); Prothrombin Time 15.4 SECONDS (9.4-12.5)
[2024-09-24 12:29] LABS: Lactate (Lactic Acid) 1.3 mmol/L (0.7-2.1)
[2024-09-24 12:30] LABS: Alanine Aminotransferase 20 IU/L (<35); Albumin 3.6 g/dL (3.5-5.0); Albumin Globulin Ratio 1.2 (1.0-2.8); Alkaline Phosphatase 111 U/L (38-126); Aspartate Aminotransferase 24 IU/L (14-36); BUN Creatinine Ratio 12.6 (6-22); Bilirubin Total 0.3 mg/dL (0.2-1.3); Blood Urea Nitrogen 14 mg/dL (7-17); Carbon Dioxide 31 mmol/L (22-32); Chloride 99 mmol/L (98-107); Estimated Glomerular Filt Rate 57 mL/min (>60); Globulin 2.9 g/dL (1.7-4.1); Glucose 115 mg/dL (70-99); HEMOLYSIS < 15 (0-50); Potassium 2.9 mmol/L (3.4-5.1); Sodium 136 mmol/L (137-145); Total Protein 6.5 g/dL (6.3-8.2)
[2024-09-24 12:42] LABS: NT-proBNP (BNP-Adult 18+) 868 pg/mL (<125); Troponin I 0.024 ng/mL (0.01-0.034)
[2024-09-24] MEDS: NOREPINEPHRINE BITARTRATE/D5W 4 MG/250 ML PLAST..BAG 41.844 MG IV (13:19)
[2024-09-24] MEDS: POTASSIUM CHLORIDE IN WATER 10 MEQ/100 ML PIGGYBACK 100 MEQ IV ×4 (13:34→17:04)
[2024-09-24 13:36] LABS: Magnesium 0.6 mg/dL (1.6-2.3)
[2024-09-24] MEDS: MAGNESIUM SULFATE 2 GM/50 ML PIGGYBACK IV (13:46)
--- NOTE | 2024-09-24 14:30 | P.HP_ITS ---
History of Present Illness History of Present Illness Chief complaint: CHEST CONGESTION, BODY ACHE Narrative: She was a 59-year-old female with history of severe COPD and recurrent pneumonia as well as COPD exacerbations. She has been ill for about 7 days with a cough and rhinorrhea. She became more ill for the last 3 days with progressive shortness a breath and nausea. Due to increased symptoms she presented to the ED and was found to be hypoxemic and hypotensive. She notes she was had nausea, vomiting, and diarrhea for 2-3 days. In the ED, she would negative COVID and flu PCR. She was given IV fluids, 2 L but remained hypotensive. A right arm PICC line was placed and pressors were started. She denies fevers, or chills. She does state that she never really has a fever. She also denies any rectal bleeding or hematemesis. She feels better on oxygen and with her blood pressure managed. FORMERLY [facility], LATER [facility] Medical History Cardiac arrhythmia Morbid obesity due to excess calories Elevated brain natriuretic peptide (BNP) level Acute and chronic respiratory failure with hypoxia Chronic anticoagulation Cervical spondylosis Neck pain Cervical radiculopathy CAD (coronary artery disease) Congestive heart failure COPD (chronic obstructive pulmonary disease) Surgical History AICD (automatic cardioverter/defibrillator) present H/O heart artery stent Social History household members: spouse lives independently: Yes Smoking Status: Current every day smoker alcohol intake: never Meds Home Medications and Allergies Home Medications Medication Instructions Recorded Confirmed Type amiodarone 200 mg tablet 100 mg PO DAILY 07/17/22 09/24/24 History apixaban 5 mg tablet (Eliquis) 5 mg PO BID 07/17/22 09/24/24 History multivitamin 1 tab PO DAILY 08/29/22 09/24/24 History promethazine 25 mg tablet 25 mg PO Q6H PRN Nausea 08/29/22 09/24/24 History fluticasone propionate 50 2 spray intranasal BID 11/07/22 09/24/24 History mcg/actuation nasal spray,suspension budesonide 0.5 mg/2 mL suspension 0.5 mg inhalation BID 08/01/23 09/24/24 History for nebulization empagliflozin 10 mg tablet 10 mg PO DAILY 08/01/23 09/24/24 History (Jardiance) mexiletine 150 mg capsule 150 mg PO BID 08/01/23 09/24/24 History montelukast 10 mg tablet 10 mg PO BEDTIME 08/01/23 09/24/24 History sacubitril 24 mg-valsartan 26 mg 1 tab PO BID 08/01/23 09/24/24 History tablet (Entresto) furosemide 80 mg tablet 80 mg PO DAILY 10/15/23 09/24/24 History aspirin 81 mg tablet 81 mg PO DAILY 05/09/24 09/24/24 History cetirizine 10 mg tablet (All Day 10 mg PO DAILY 05/09/24 09/24/24 History Allergy (cetirizine)) albuterol sulfate 90 mcg/actuation 2 puff inhalation Q4HR PRN sob 06/15/24 09/24/24 History aerosol inhaler diazepam 5 mg tablet (Valium) 5 mg PO BID PRN anxiety #14 tabs 06/23/24 09/24/24 Rx oxycodone-acetaminophen 5 mg-325 1 tab PO Q6HR PRN Pain, Severe 06/23/24 09/24/24 Rx mg tablet (7-10) #14 tabs pantoprazole 40 mg tablet,delayed 40 mg PO DAILY PRN gerd 09/24/24 09/24/24 History release (Protonix) Allergies Allergy/AdvReac Type Severity Reaction Status Date / Time bee pollen Allergy Severe Anaphylaxis Verified 09/24/24 09:52 Fish Containing Products Allergy Severe Anaphylaxis Verified 09/24/24 09:52 shellfish derived Allergy Severe Anaphylaxis Verified 09/24/24 09:52 codeine Allergy Verified 09/24/24 09:52 erythromycin base Allergy Verified 09/24/24 09:52 latex Allergy Rash Verified 09/24/24 09:52 pamabrom [From Midol] Allergy Verified 09/24/24 09:52 doxycycline AdvReac Vomiting Verified 09/24/24 09:52 Review of Systems Review of Systems Narrative: All else reviewed and otherwise unremarkable except as noted in the history and physical. Exam Vital Signs (past 8 hours): - 09/24/24 09:13 09/24/24 09:25 09/24/24 09:28 Temperature Pulse Rate 92 H 95 H 88 Respiratory Rate 31 H Blood Pressure 67/43 L Pulse Oximetry 97 99 98 Oxygen Delivery Method Nasal Cannula Oximask Oxygen Flow Rate 3 3 09/24/24 09:28 09/24/24 09:30 09/24/24 09:32 Temperature Pulse Rate 98 H 94 H Respiratory Rate Blood Pressure 71/51 L Pulse Oximetry 99 99 Oxygen Delivery Method Oximask Oximask Oxygen Flow Rate 3 3 09/24/24 09:32 09/24/24 09:46 09/24/24 09:46 Temperature Pulse Rate 94 H Respiratory Rate 32 H Blood Pressure 84/41 L 67/43 L Pulse Oximetry 98 Oxygen Delivery Method Oximask Oxygen Flow Rate 3 09/24/24 10:00 09/24/24 10:14 09/24/24 10:14 Temperature Pulse Rate 92 H 93 H Respiratory Rate 33 H 24 Blood Pressure 86/44 L Pulse Oximetry 98 97 Oxygen Delivery Method Oximask Oximask Oxygen Flow Rate 3 3 09/24/24 10:15 09/24/24 10:15 09/24/24 10:30 Temperature Pulse Rate 93 H 101 H Respiratory Rate Blood Pressure 78/47 L Pulse Oximetry 97 98 Oxygen Delivery Method Oximask Oxygen Flow Rate 3 09/24/24 11:00 09/24/24 11:30 09/24/24 11:31 Temperature Pulse Rate 89 95 H 94 H Respiratory Rate 24 40 H 31 H Blood Pressure Pulse Oximetry 97 94 97 Oxygen Delivery Method Oxygen Flow Rate 09/24/24 11:31 09/24/24 11:34 09/24/24 11:40 Temperature Pulse Rate 92 H 92 H Respiratory Rate 20 36 H Blood Pressure 89/57 L Pulse Oximetry 99 96 Oxygen Delivery Method Oximask Oxygen Flow Rate 3 09/24/24 11:40 09/24/24 11:45 09/24/24 11:45 Temperature Pulse Rate 91 H Respiratory Rate 38 H Blood Pressure 84/49 L 90/53 L Pulse Oximetry 93 Oxygen Delivery Method Oxygen Flow Rate 09/24/24 11:50 09/24/24 11:50 09/24/24 11:55 Temperature Pulse Rate 91 H 90 Respiratory Rate 32 H 36 H Blood Pressure 98/50 L Pulse Oximetry 92 92 Oxygen Delivery Method Oxygen Flow Rate 09/24/24 11:55 09/24/24 12:00 09/24/24 12:00 Temperature Pulse Rate 88 Respiratory Rate 34 H Blood Pressure 94/50 L 97/53 L Pulse Oximetry 93 Oxygen Delivery Method Oxygen Flow Rate 09/24/24 12:05 09/24/24 12:05 09/24/24 12:13 Temperature Pulse Rate 88 83 Respiratory Rate 33 H 27 H Blood Pressure 96/51 L Pulse Oximetry 93 94 Oxygen Delivery Method Oximask Oxygen Flow Rate 3 09/24/24 12:13 09/24/24 12:21 09/24/24 12:21 Temperature Pulse Rate 86 Respiratory Rate 38 H Blood Pressure 92/52 L 100/60 Pulse Oximetry 92 Oxygen Delivery Method Oxygen Flow Rate 09/24/24 12:26 09/24/24 12:26 09/24/24 12:30 Temperature Pulse Rate 85 Respiratory Rate 38 H Blood Pressure 94/52 L 96/51 L Pulse Oximetry 89 L Oxygen Delivery Method Oximask Oxygen Flow Rate 5 09/24/24 12:30 09/24/24 12:35 09/24/24 12:35 Temperature Pulse Rate 85 82 Respiratory Rate 33 H 36 H Blood Pressure 95/53 L Pulse Oximetry 85 L 92 Oxygen Delivery Method Oxygen Flow Rate 09/24/24 12:41 09/24/24 12:41 09/24/24 12:45 Temperature Pulse Rate 89 Respiratory Rate 28 H Blood Pressure 92/46 L 97/46 L Pulse Oximetry 95 Oxygen Delivery Method Oxygen Flow Rate 09/24/24 12:45 09/24/24 12:50 09/24/24 12:50 Temperature Pulse Rate 94 H 91 H Respiratory Rate 36 H 34 H Blood Pressure 87/42 L Pulse Oximetry 96 92 Oxygen Delivery Method Oxygen Flow Rate 09/24/24 12:52 09/24/24 12:52 09/24/24 13:00 Temperature Pulse Rate 93 H 83 Respiratory Rate 38 H 33 H Blood Pressure 91/42 L Pulse Oximetry 94 94 Oxygen Delivery Method Oxygen Flow Rate 09/24/24 13:00 09/24/24 13:05 09/24/24 13:05 Temperature Pulse Rate 84 Respiratory Rate 31 H Blood Pressure 90/54 L 94/50 L Pulse Oximetry 95 Oxygen Delivery Method Oxygen Flow Rate 09/24/24 13:11 09/24/24 13:11 09/24/24 13:14 Temperature 98.8 F Pulse Rate 91 H Respiratory Rate 32 H Blood Pressure 82/37 L 81/40 L Pulse Oximetry 94 Oxygen Delivery Method Oximask Oxygen Flow Rate 5 09/24/24 13:14 09/24/24 13:15 09/24/24 13:15 Temperature Pulse Rate 91 H 91 H Respiratory Rate 35 H 33 H Blood Pressure 73/36 L Pulse Oximetry 94 93 Oxygen Delivery Method Oxygen Flow Rate 09/24/24 13:20 09/24/24 13:20 09/24/24 13:25 Temperature Pulse Rate 91 H 83 Respiratory Rate 34 H 36 H Blood Pressure 67/30 L Pulse Oximetry 94 94 Oxygen Delivery Method Oxygen Flow Rate 09/24/24 13:25 09/24/24 13:30 09/24/24 13:30 Temperature Pulse Rate 80 Respiratory Rate 32 H Blood Pressure 136/64 135/63 Pulse Oximetry 90 L Oxygen Delivery Method Oxygen Flow Rate 09/24/24 13:35 09/24/24 13:35 09/24/24 13:40 Temperature Pulse Rate 77 78 Respiratory Rate 35 H 32 H Blood Pressure 126/56 L Pulse Oximetry 95 92 Oxygen Delivery Method Oxygen Flow Rate 09/24/24 13:40 09/24/24 13:45 09/24/24 13:45 Temperature Pulse Rate 78 Respiratory Rate 31 H Blood Pressure 131/63 127/58 L Pulse Oximetry 95 Oxygen Delivery Method Oxygen Flow Rate Oxygen Delivery Method Oximask Oxygen Flow Rate 5 Narrative Exam Narrative: NAD, alert and oriented, fluent speech, moderately anxious. She is obese and chronically ill in appearance. She was on an on simple OxyMask. Normocephalic skull, EOMI, anicteric sclera, symmetric pupils. Oropharynx unremarkable, no droop. Neck supple, midline trachea, no adenopathy. Lungs are notable for diffuse inspiratory and expiratory wheezing, with a normal rate and mildly increased respiratory effort Heart regular, no murmur gallop or rub. Abdomen is soft, non distended and non tender. Extremities are free of edema. Skin is free of rash or lesions. Joints are not swollen or deformed. Judgment appears to be normal. Objective ECG Impression: Intervals [place] Rate: 95 P: -9 AK: QRS: 269 QRSD: 178 T: 101 QT: 472 QTc: 593 Interpretive Statements Ventricular-paced rhythm Imaging CT scan - chest: Radiologist's impression: 1. Suboptimal opacification of pulmonary arteries. No gross large central pulmonary emboli. Bilateral segmental and subsegmental pulmonary artery branches are poorly opacified. Small pulmonary emboli cannot be excluded. No thoracic aortic aneurysm or gross dissection. 2. Moderate size right upper lobe pneumonia extending to right hilar region. Follow-up until resolution is recommended to rule out underlying neoplastic process. Mild dependent atelectasis in posterior aspect of bilateral lower lobes. No pleural effusion or pneumothorax. 3. Cardiomegaly, no pericardial effusion. Pacemaker leads in place. No mediastinal or hilar lymphadenopathy. Chest x-ray: Radiologist's impression: MPRESSION: Tip of PICC projects to the area of SVC. Labs 09/24/24 12:07 09/24/24 12:07 Labs: Laboratory Results - last 24 hr 09/24/24 09/24/24 09/24/24 09:20 09:54 10:15 WBC RBC Hgb Hct MCV MCH MCHC RDW Plt Count Neut % (Auto) Lymph % (Auto) [place] % (Auto) Eos % (Auto) Baso % (Auto) Neut # (Auto) Lymph # (Auto) [place] # (Auto) Eos # (Auto) Baso # (Auto) PT INR VBG pH 7.41 VBG pCO2 46.4 VBG pO2 49 H VBG HCO3 30 H VBG Total CO2 29 VBG O2 Saturation 85 H VBG Base Excess 4.1 H FiO2 % 36.0 % Sodium Potassium Chloride Carbon Dioxide BUN Creatinine Estimated GFR BUN/Creatinine Ratio Glucose Lactate Calcium Magnesium Total Bilirubin AST ALT Alkaline Phosphatase Troponin I NT-Pro-B Natriuret Pep Total Protein Albumin Globulin Albumin/Globulin Ratio Procalcitonin 0.504 H SARS-CoV-2 (PCR) Negative Influenza A (RT-PCR) Flu a negative Influenza B (RT-PCR) Flu b negative RSV (PCR) Negative 09/24/24 12:07 WBC 6.6 RBC 4.84 Hgb 12.5 Hct 39.1 MCV 80.8 MCH 25.8 L MCHC 31.9 RDW 19.4 H Plt Count 223 Neut % (Auto) 63.9 Lymph % (Auto) 15.8 L [place] % (Auto) 18.8 H Eos % (Auto) 0.7 L Baso % (Auto) 0.8 Neut # (Auto) 4200 Lymph # (Auto) 1100 [place] # (Auto) 1200 H Eos # (Auto) 0 Baso # (Auto) 100 PT 15.4 H INR 1.4 H VBG pH VBG pCO2 VBG pO2 VBG HCO3 VBG Total CO2 VBG O2 Saturation VBG Base Excess FiO2 % Sodium 136 L Potassium 2.9 L Chloride 99 Carbon Dioxide 31 BUN 14 Creatinine 1.11 H Estimated GFR 57 L BUN/Creatinine Ratio 12.6 Glucose 115 H Lactate 1.3 Calcium 9.0 Magnesium 0.6 L* Total Bilirubin 0.3 AST 24 ALT 20 Alkaline Phosphatase 111 Troponin I 0.024 NT-Pro-B Natriuret Pep 868 H Total Protein 6.5 Albumin 3.6 Globulin 2.9 Albumin/Globulin Ratio 1.2 Procalcitonin SARS-CoV-2 (PCR) Influenza A (RT-PCR) Influenza B (RT-PCR) RSV (PCR) Assessment & Plan Assessment & Plan narrative: 1. Acute exacerbation of chronic obstructive pulmonary disease, present on admission and active. 2. Pneumonia, present on admission and active. 3. Acute and chronic respiratory failure with hypoxia, present on admission and improved. See above plan 4. Chronic systolic heart failure, stable. Severe chronic Systolic CHF LVEF 25% Monitor Intake and Output Daily weight Continue Entresto, Empagloflozin, and home furosemide 5. Hypokalemia, present on admission and active. Likely sec to large dose of Lasix at home and likely decreased oral intake Normalized back on home furosemide. 6. Chronic anticoagulation, stable. On Chronic A/C / Apixaban , sec to Severe Cardiomyopathy/ h/o Cardiac arrythmias, been on Amiodarone and Mexilitine , has AICD 7. Morbid obesity due to excess calories, stable. The patient is at much higher risk for medical and surgical complications because of their obesity. This increases the difficulty and complexity of medical and surgical interventions and increases the chances of poor outcomes such as morbidity and mortality. 8. Diabetes mellitus, type 2, stable. Starting on lantus this admission with admission hemoglobin A1c 7.8% Continue with sliding scale this happens with most of her admissions requiring steroids. patient gets very upset and threatens to leave if her diet is anything other than general while admitted here. Encouraged diabetic diet. PLAN: -continue IV fluid resuscitation for probable volume depletion. -wean norepinephrine as soon as able. -follow blood and sputum cultures. -continue empiric antibiotics. -steroids and bronchodilators for COPD. -continue Lantus and Lispro. Full code. Anticipate 2 MN in the hospital, supports inpatient status. Time-Based Coding :: 35 min spent with patient and on the chart (including review of chart, obtaining history, exam, reviewing outside data, placing orders, documenting exam and treatment plan, and counseling patient) on 09/24. Quality MIPS - Admit The patient?s Advance Care plan is not present because I confirmed today that the patient does not wish or was not able to name a surrogate decision maker or provide an Advance Care Plan.: Yes MIPS - Meds 'Current medications' to include all prescriptions, [id number] products, herbals, cannabis/cannabidiol products, and vitamin/mineral/dietary (nutritional) supplements. I have utilized all available resources to obtain, update, or review the patient?s current medications. [If Yes, STOP here]: Yes
[2024-09-24] MEDS: SODIUM CHLORIDE 0.9% 1,000 ML 100 ML IV (14:40)
[2024-09-24] MEDS: cefTRIAXone 1,000 MG in SODIUM CHLORIDE 0.9% 100 ML 200 MG IV (14:41)
[2024-09-24] MEDS: IPRATROPIUM 0.5 MG/2.5 ML NEB INH ×3 (15:21→23:33)
[2024-09-24] MEDS: predniSONE 20 MG TABLET 40 MG PO (15:50)
[2024-09-24] MEDS: OXYCODONE/ACETAMINOPHEN 5/325 TABLET 1 TAB PO (17:04)
--- NOTE | 2024-09-24 19:01 | PC.NURSE ---
Admit Note Patient arrived to room 227 at approx 1420. Assisted to bed via slider board. On 3L oxymask with SpO2 93-94%. Lungs with wheezes and coarse crackles. V paced on tele. On levophed gtt, titrating to keep MAP 65 and above, see MAR for titrations, currently at 0.03 mcg/kg/min. Oriented to room and to call light/bed/tv controls. Call light within reach, using appropriately to make needs known. Belongings at bedside including cell phone, purse, shoes, and clothing. Declines to lock up valuables. Reports she will have family member bring in home meds that we do not stock in pharmacy tomorrow.
[2024-09-24] MEDS: ALBUTEROL 2.5 MG/3 ML NEB (ADULT) INH ×2 (19:13→23:33)
[2024-09-24] MEDS: BUDESONIDE 0.5 MG/2 ML NEB INH (19:13)
[2024-09-24 19:59] LABS: MRSA (Nasal) PCR NOT DETECTED (Not Detect)
[2024-09-24] MEDS: HYDROMORPHONE 0.5 MG INJ IV (20:19)
[2024-09-24] MEDS: MONTELUKAST 10 MG TABLET PO (20:20)
[2024-09-24] MEDS: APIXABAN 5 MG TABLET PO (20:20)
[2024-09-24] MEDS: AZITHROMYCIN 500 MG in DEXTROSE 5% IN WATER 250 ML 250 MG IV (21:14)
[2024-09-24] MEDS: INSULIN LISPRO 100 UNIT/ML 3ML VIAL SUBCUT (21:31)
[2024-09-24] MEDS: HYDROMORPHONE 0.5 MG INJ 1 MG IV (22:25)
[2024-09-25] VITALS (77 sets, daily range): BP systolic 70–188; BP diastolic 48–110; PULSE 60–95; RESP 16–52; TEMP 35.7–36.2; O2SAT 91–99
[2024-09-25] MEDS: KETOROLAC 30 MG/ML VIAL IV (00:20)
[2024-09-25] MEDS: SUMAtriptan 25 MG TABLET PO (00:21)
[2024-09-25] MEDS: IPRATROPIUM 0.5 MG/2.5 ML NEB INH ×2 (01:55→09:00)
[2024-09-25] MEDS: SODIUM CHLORIDE 0.9% 1,000 ML 100 ML IV (02:25)
[2024-09-25] MEDS: NOREPINEPHRINE BITARTRATE/D5W 4 MG/250 ML PLAST..BAG 12.553 MG IV (04:07)
[2024-09-25] MEDS: HYDROMORPHONE 0.5 MG INJ IV (04:33)
[2024-09-25 04:58] LABS: Add Manual Diff / Slide Review NO; Basophils Absolute Auto 0 /uL (0-100); Basophils Percent Auto 0.7 % (0-2); Eosinophils Absolute Auto 0 /uL (0-450); Hematocrit 37.3 % (36-46); Hemoglobin 12.1 g/dL (12.0-16.0); Lymphocytes Absolute Auto 800 /uL (1100-4500); Lymphocytes Percent Auto 11.6 % (25-40); Mean Corpuscular HGB Conc 32.4 % (30-36); Mean Corpuscular Volume 80.2 fL (80-100); Monocytes Absolute Auto 1000 /uL (0-900); Monocytes Percent Auto 14.4 % (3-14); Neutrophils Absolute Auto 4900 /uL (1500-7000); Neutrophils Percent Auto 73.3 % (50-75); Platelet Count 230 X10^3/uL (150-400); Red Blood Cell Count 4.66 X10^6/uL (4.0-5.2); Red Cell Distribution Width 18.9 % (11.6-14.8); White Blood Cell Count 6.7 X10^3/uL (4.5-11.0)
[2024-09-25 05:09] LABS: BUN Creatinine Ratio 13.8 (6-22); Blood Urea Nitrogen 16 mg/dL (7-17); Calcium 8.8 mg/dL (8.4-10.2); Carbon Dioxide 27 mmol/L (22-32); Chloride 99 mmol/L (98-107); Estimated Glomerular Filt Rate 54 mL/min (>60); Glucose 174 mg/dL (70-99); HEMOLYSIS < 15 (0-50); Potassium 3.1 mmol/L (3.4-5.1); Sodium 133 mmol/L (137-145)
--- NOTE | 2024-09-25 05:18 | PM.EVENT ---
Event Note Event Note (Rapid Response, Code, or fall): Was notified that patients' trop from 0.05 and repeat came up to 0.12. Note patient came in with syncope. Will start lovenox therapeutic dose now and obtain echo while continue to trend trops. Patient still no chest pain. Obtain EKG as well.
[2024-09-25] MEDS: LORATADINE 10 MG TABLET PO (08:30)
[2024-09-25] MEDS: predniSONE 20 MG TABLET 40 MG PO (08:30)
[2024-09-25] MEDS: FUROSEMIDE 40 MG TABLET 80 MG PO (08:30)
[2024-09-25] MEDS: INSULIN GLARGINE 100 UNIT/ML 3ML PEN 10 UNIT SUBCUT (08:31)
[2024-09-25] MEDS: ASPIRIN EC 81 MG TABLET PO (08:31)
[2024-09-25] MEDS: MULTIVITAMIN 1 TABLET 1 TAB PO (08:31)
[2024-09-25] MEDS: APIXABAN 5 MG TABLET PO ×2 (08:31→20:40)
[2024-09-25] MEDS: AMIODARONE 200 MG TABLET 100 MG PO (08:31)
[2024-09-25] MEDS: INSULIN LISPRO 100 UNIT/ML 3ML VIAL SUBCUT ×4 (08:33→21:16)
[2024-09-25] MEDS: BUDESONIDE 0.5 MG/2 ML NEB INH ×2 (09:00→18:35)
[2024-09-25] MEDS: ALBUTEROL 2.5 MG/3 ML NEB (ADULT) INH (09:00)
[2024-09-25] MEDS: POTASSIUM CHLORIDE 20 MEQ TAB 40 MEQ PO (10:00)
[2024-09-25] MEDS: OXYCODONE/ACETAMINOPHEN 5/325 TABLET 1 TAB PO ×2 (10:38→16:44)
[2024-09-25 10:49] LABS: Magnesium 2.1 mg/dL (1.6-2.3)
[2024-09-25] MEDS: Mexiletine 150 mg capsule 150 EACH PO ×2 (12:47→20:49)
[2024-09-25] MEDS: ALBUTEROL/IPRATROPIUM 3 ML AMPUL INH ×3 (14:05→23:20)
--- NOTE | 2024-09-25 15:32 | CM.DANOTE ---
Initial DCP Assessment Note Patient is a 59 yo female history of severe COPD and recurrent pneumonia as well as COPD exacerbation, presents with complaint of persistently feeling ill. Admitted INPT for management of hypoxemic and hypotensive, PICC placed for pressors. PCP Jolene [facility] and Medicaid Patient lives in an RV in [place] with spouse and has local supportive Granddtr/DANGMamta Poncey, has home O2 and home bipap. Patient manages most of her ADLs mod indp, walks w/ walker, uses home O2 and is working with [facility]. Plan: Discharge home w/family and resumption of [facility] is anticipated. Either family, [facility] transport or [facility] [phone] to transport home. The following community resources have been offered and can be discussed again as needed: Community resources- basic needs, [facility], [facility] . team following clinical course closely. 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 Yes Advance Directives on File No: Purple folder in the car History Provided By Patient,Medical Record Has Patient been admitted in last 30 No days? Comment Feb-OBS May-INPT Jun-INPT Prior Living Arrangements House Household Members spouse Type of transporation used prior to Relies on Others admit Independent with ADL's Yes: Mod indp Is patient alert and oriented? Yes Needs Assistance With Meal Prep,Managing Medications ,Home Chores / Shopping Patient/Family Preference Home with Home Health Comment hx of [facility] Discharge Plan Home with Home Health Transportation Arrangement Family, [facility] (through [facility]) Referrals Initiated Home Health Additional Comment potential need for resumption orders with [facility] If patient plan is home with home health Yes : Has signed face to face form been completed?
[2024-09-25] MEDS: cefTRIAXone 1,000 MG in SODIUM CHLORIDE 0.9% 100 ML 200 MG IV (15:33)
[2024-09-25] MEDS: diazePAM 5 MG TABLET PO ×2 (18:56→20:40)
--- NOTE | 2024-09-25 19:08 | P.PN_ITS ---
Exam Vital Signs (past 8 hours): - 09/25/24 11:30 09/25/24 11:31 09/25/24 11:31 Pulse Rate 65 66 Respiratory Rate 25 H 27 H Blood Pressure 126/71 Pulse Oximetry Oxygen Delivery Method Oxygen Flow Rate 09/25/24 12:00 09/25/24 12:00 09/25/24 12:30 Pulse Rate 66 Respiratory Rate 26 H Blood Pressure 120/58 L 126/69 Pulse Oximetry Oxygen Delivery Method Oxygen Flow Rate 09/25/24 12:30 09/25/24 13:00 09/25/24 13:30 Pulse Rate 77 94 H 68 Respiratory Rate Blood Pressure Pulse Oximetry 99 Oxygen Delivery Method Oxygen Flow Rate 09/25/24 14:00 09/25/24 14:05 09/25/24 14:30 Pulse Rate 95 H 79 85 Respiratory Rate 37 H 16 35 H Blood Pressure Pulse Oximetry 97 98 Oxygen Delivery Method Oximask Oxygen Flow Rate 3 09/25/24 14:46 09/25/24 14:47 09/25/24 14:47 Pulse Rate 89 85 Respiratory Rate 52 H 43 H Blood Pressure 132/72 Pulse Oximetry Oxygen Delivery Method Oxygen Flow Rate 09/25/24 14:52 09/25/24 14:52 09/25/24 15:00 Pulse Rate 86 91 H Respiratory Rate 28 H 29 H Blood Pressure 138/65 Pulse Oximetry Oxygen Delivery Method Oxygen Flow Rate 09/25/24 15:00 09/25/24 15:02 09/25/24 15:02 Pulse Rate 90 Respiratory Rate 36 H Blood Pressure 136/67 Pulse Oximetry 96 Oxygen Delivery Method Oximask Oxygen Flow Rate 3 09/25/24 15:30 09/25/24 15:30 09/25/24 16:00 Pulse Rate 84 68 Respiratory Rate 33 H 39 H Blood Pressure 138/60 Pulse Oximetry Oxygen Delivery Method Oxygen Flow Rate 09/25/24 16:30 09/25/24 17:00 09/25/24 17:30 Pulse Rate 72 81 72 Respiratory Rate 32 H 35 H 31 H Blood Pressure Pulse Oximetry Oxygen Delivery Method Oxygen Flow Rate 09/25/24 18:00 09/25/24 18:00 09/25/24 18:35 Pulse Rate 85 60 Respiratory Rate 32 H 28 H Blood Pressure Pulse Oximetry 97 Oxygen Delivery Method Oximask Oximask Oxygen Flow Rate 3 Fraction of Inspired Oxygen 32 SaO2/FiO2 Ratio 300 Oxygen Delivery Method Oximask Oxygen Flow Rate 3 Objective Labs 09/25/24 04:40 09/25/24 04:40 Labs: Laboratory Results - last 24 hr 09/24/24 09/25/24 14:48 04:40 WBC 6.7 RBC 4.66 Hgb 12.1 Hct 37.3 MCV 80.2 MCH 26.0 MCHC 32.4 RDW 18.9 H Plt Count 230 Neut % (Auto) 73.3 Lymph % (Auto) 11.6 L [place] % (Auto) 14.4 H Eos % (Auto) 0.0 L Baso % (Auto) 0.7 Neut # (Auto) 4900 Lymph # (Auto) 800 L [place] # (Auto) 1000 H Eos # (Auto) 0 Baso # (Auto) 0 Sodium 133 L Potassium 3.1 L Chloride 99 Carbon Dioxide 27 BUN 16 Creatinine 1.16 H Estimated GFR 54 L BUN/Creatinine Ratio 13.8 Glucose 174 H Calcium 8.8 Magnesium 2.1 Nasal Screen MRSA (PCR) Not detected [facility]LY [facility] Medical History Cardiac arrhythmia Morbid obesity due to excess calories Elevated brain natriuretic peptide (BNP) level Acute and chronic respiratory failure with hypoxia Chronic anticoagulation Cervical spondylosis Neck pain Cervical radiculopathy CAD (coronary artery disease) Congestive heart failure COPD (chronic obstructive pulmonary disease) Surgical History AICD (automatic cardioverter/defibrillator) present H/O heart artery stent Social History household members: spouse lives independently: Yes Smoking Status: Current every day smoker alcohol intake: never Assessment & Plan Assessment & Plan narrative: 1. Acute exacerbation of chronic obstructive pulmonary disease, present on admission and active. - continue prednisone 40 mg daily x5 days 2. Septic shock secondary Pneumonia, present on admission and active. - continue antibiotics with ceftriaxone and azithromycin. - was on levophed in the ER and overnight, weaned off this morning, possibly due to entresto and illness. - improved BP today, resume entresto cautiously this evening. 3. Acute and chronic respiratory failure with hypoxia, present on admission and improved. See above plan 4. Chronic systolic heart failure, stable. Severe chronic Systolic CHF LVEF 25% Monitor Intake and Output Daily weight Continue Entresto, Empagloflozin, and home furosemide 5. Hypokalemia, present on admission and active. Likely sec to large dose of Lasix at home and likely decreased oral intake Normalized back on home furosemide. 6. Chronic anticoagulation, stable. On Chronic A/C / Apixaban , sec to Severe Cardiomyopathy/ h/o Cardiac arrythmias, been on Amiodarone and Mexilitine , has AICD 7. Morbid obesity due to excess calories, stable. The patient is at much higher risk for medical and surgical complications because of their obesity. This increases the difficulty and complexity of medical and surgical interventions and increases the chances of poor outcomes such as morbidity and mortality. 8. Diabetes mellitus, type 2, stable. Starting on lantus this admission with admission hemoglobin A1c 7.8% Continue with sliding scale this happens with most of her admissions requiring steroids. patient gets very upset and threatens to leave if her diet is anything other than general while admitted here. Encouraged diabetic diet. PLAN: -continue IV fluid resuscitation for probable volume depletion. -wean norepinephrine as soon as able. -follow blood and sputum cultures. -continue empiric antibiotics. -steroids and bronchodilators for COPD. -continue Lantus and Lispro. Full code. Anticipate 2 MN in the hospital, will keep in ICU for now as just weaned this morning from levophed and will restart entresto. I spent 40 minutes providing critical care management this patient. This excludes time spent in performing separately billed procedures. Time-Based Coding :: [TOTAL MINUTES] spent with patient and on the chart (including review of chart, obtaining history, exam, reviewing outside data, placing orders, documenting exam and treatment plan, and counseling patient) on [DATE]. Quality VTE Deep Vein Thrombosis/Pulmonary Embolism Present on Admission: No
[2024-09-25] MEDS: MONTELUKAST 10 MG TABLET PO (20:40)
[2024-09-25] MEDS: AZITHROMYCIN 500 MG in DEXTROSE 5% IN WATER 250 ML 250 MG IV (20:40)
[2024-09-25] MEDS: ONDANSETRON 4 MG/2 ML INJ IV (21:07)
--- NOTE | 2024-09-25 23:37 | DI.RAD.S_ITS ---
PROCEDURE: XR CHEST 1V INDICATIONS: Worsening breath sounds TECHNIQUE: One view of the chest was acquired. COMPARISON: [facility], CR, XR CHEST FOR PICC 1V, 09/24/2024, 10:53. [facility], CR, XR CHEST 1V, 06/14/2024, 17:35. FINDINGS: Surgical changes and devices: Right-sided PICC with the catheter tip in the region of the upper 3rd of the SVC. Left pacemaker/AICD. Lungs and pleura: Platelike opacity in the right upper lobe. No pleural effusions or pneumothorax. Mediastinum: Mediastinal contours appear unchanged. Heart size is prominent. Bones and chest wall: No suspicious bony lesions. Overlying soft tissues appear unremarkable. IMPRESSION: Platelike opacity at the right upper lobe. This could represent pneumonia or atelectasis. Question pulmonary vasculature engorgement. Dictated by: Pedro Luis Nunes M.D. on 09/26/2024 at 1:29 Approved by: Pedro Luis Nunes M.D. on 09/26/2024 at 1:31
[2024-09-26] VITALS (55 sets, daily range): BP systolic 107–164; BP diastolic 55–93; PULSE 47–92; RESP 12–55; TEMP 31–36.3; O2SAT 85–100
[2024-09-26] MEDS: FUROSEMIDE 40 MG/4 ML VIAL IV (00:05)
[2024-09-26] MEDS: ALBUTEROL 2.5 MG/3 ML NEB (ADULT) INH (02:05)
--- NOTE | 2024-09-26 02:13 | DI.CT.S_ITS ---
PROCEDURE: CT HEAD/BRAIN WO CON INDICATIONS: changes in mentation TECHNIQUE: Noncontrast 4.5 mm thick angled axial sections acquired from the foramen magnum to the vertex, with coronal and sagittal reformats. For radiation dose reduction, the following was used: automated exposure control, adjustment of mA and/or kV according to patient size. COMPARISON: [facility], CT, CT HEAD WITHOUT CONTRAST, 04/16/2023, 12:11. [facility], CT, CT HEAD/BRAIN WO CON, 11/11/2022, 14:41. FINDINGS: Image quality: Diagnostic. CSF spaces: Basal cisterns are patent. No extra-axial fluid collections. Ventricles are normal in size and shape. Brain: No midline shift. No intracranial mass effect or hemorrhage. Sheldon-white matter interface is normal. Skull and face: Calvarium and visualized facial bones are intact, without suspicious lesions. Sinuses: Visualized sinuses and mastoids are clear. IMPRESSION: No acute intracranial pathology. Findings are concordant with preliminary interpretation provided by [facility]. Dictated by: Jaziel Perez M.D. on 09/26/2024 at 8:22 Approved by: Jaziel Perez M.D. on 09/26/2024 at 8:23
[2024-09-26 02:33] LABS: BUN Creatinine Ratio 12.9 (6-22); Blood Urea Nitrogen 13 mg/dL (7-17); Calcium 7.2 mg/dL (8.4-10.2); Carbon Dioxide 29 mmol/L (22-32); Chloride 107 mmol/L (98-107); Estimated Glomerular Filt Rate > 60 mL/min (>60); Glucose 141 mg/dL (70-99); HEMOLYSIS < 15 (0-50); Sodium 140 mmol/L (137-145)
[2024-09-26 02:35] LABS: Potassium 2.6 mmol/L (3.4-5.1)
[2024-09-26 02:36] LABS: Allen Test for ABG Passed? Positive; Base Excess ABG 8.5 mmol/L (-2-3); Blood Gas Collection Site Left Radial; HCO3 ABG 36 mmol/L (23-27); Oxygen Saturation ABG 95 % (95-100); PCO2 ABG 62.9 mmHg (35-45); PO2 ABG 79 mmHg (80-100); TCO2 ABG 35 mmol/L (23-27); pH ABG 7.37 (7.35-7.45)
[2024-09-26] MEDS: POTASSIUM CHLORIDE IN WATER 10 MEQ/100 ML PIGGYBACK 100 MEQ IV ×6 (03:25→09:37)
--- NOTE | 2024-09-26 04:27 | P.EN_ITS ---
Event Note Event Note (Rapid Response, Code, or fall): Was notified by patient's nurse that patient's possibly had a seizure episode which the patient was shaking for about 90 seconds. Valium was given. However patient shortly able to follow commands and answer simple questions a few minutes after this episode. CT scan of the head was pending. The patient though seems drowsy but nonfocal exam. ABG stat shows retention of CO2 with PCO2 in the 60s though pH was 7.38. The patient saturation did decrease slightly and BiPAP was initiated. Glucose was normal. Blood pressure and heart rate was also normal. Will continue to monitor the patient closely and follow- up result of CT scan of the head. Also stat BMP shows potassium of 2.6. Replacement of potassium initiated
[2024-09-26 04:38] LABS: Base Excess VBG 7.6 mmol/L (0-4); HCO3 VBG 36 mmol/L (24-28); Oxygen Saturation VBG 72 % (70-75); PCO2 VBG 70.8 mmHg (45-50); PO2 VBG 43 mmHg (35-45); Total CO2 VBG 36 mmol/L (24-29); pH VBG 7.32 (7.33-7.43)
[2024-09-26 04:53] LABS: Base Excess VBG 9.1 mmol/L (0-4); HCO3 VBG 36 mmol/L (24-28); Oxygen Saturation VBG 79 % (70-75); PCO2 VBG 61.6 mmHg (45-50); PO2 VBG 46 mmHg (35-45); Total CO2 VBG 36 mmol/L (24-29); pH VBG 7.38 (7.33-7.43)
[2024-09-26 07:19] LABS: Add Manual Diff / Slide Review NO; Basophils Absolute Auto 100 /uL (0-100); Basophils Percent Auto 0.8 % (0-2); Eosinophils Absolute Auto 0 /uL (0-450); Eosinophils Percent Auto 0.7 % (2-4); Hemoglobin 11.7 g/dL (12.0-16.0); Lymphocytes Absolute Auto 1300 /uL (1100-4500); Mean Corpuscular HGB Conc 31.6 % (30-36); Mean Corpuscular Hemoglobin 25.8 PG (26-34); Mean Corpuscular Volume 81.6 fL (80-100); Monocytes Absolute Auto 700 /uL (0-900); Monocytes Percent Auto 10.9 % (3-14); Neutrophils Absolute Auto 4700 /uL (1500-7000); Neutrophils Percent Auto 68.6 % (50-75); Platelet Count 205 X10^3/uL (150-400); Red Blood Cell Count 4.54 X10^6/uL (4.0-5.2); White Blood Cell Count 6.9 X10^3/uL (4.5-11.0)
--- NOTE | 2024-09-26 07:38 | PC.NURSE ---
Rapid Response Event @0154: pt presented with seizure like activity @0155: Rapid Response Activated @0158: Dr. Valerio notified by phone of pt change @0202: Dr. Valerio present in pt room via Camera Orders: Labs-BMP & CBC, ABG, Chest XR, Head CT w/o contrast ordered @0215: Rapid deactivated @0326: BiPap therapy initiated; Settings: 10/5, 30% FiO2
[2024-09-26 07:42] LABS: BUN Creatinine Ratio 16.1 (6-22); Blood Urea Nitrogen 18 mg/dL (7-17); Calcium 8.6 mg/dL (8.4-10.2); Carbon Dioxide 33 mmol/L (22-32); Chloride 100 mmol/L (98-107); Estimated Glomerular Filt Rate 56 mL/min (>60); Glucose 121 mg/dL (70-99); HEMOLYSIS < 15 (0-50); Potassium 3.3 mmol/L (3.4-5.1); Sodium 138 mmol/L (137-145)
[2024-09-26] MEDS: MULTIVITAMIN 1 TABLET 1 TAB PO (08:40)
[2024-09-26] MEDS: predniSONE 20 MG TABLET 40 MG PO (08:40)
[2024-09-26] MEDS: LORATADINE 10 MG TABLET PO (08:40)
[2024-09-26] MEDS: ASPIRIN EC 81 MG TABLET PO (08:40)
[2024-09-26] MEDS: Mexiletine 150 mg capsule 150 EACH PO ×2 (08:41→20:36)
[2024-09-26] MEDS: AMIODARONE 200 MG TABLET 100 MG PO (08:41)
[2024-09-26] MEDS: INSULIN GLARGINE 100 UNIT/ML 3ML PEN 10 UNIT SUBCUT (08:41)
[2024-09-26] MEDS: APIXABAN 5 MG TABLET PO ×2 (08:41→20:24)
[2024-09-26] MEDS: diazePAM 5 MG TABLET PO ×2 (09:39→20:24)
[2024-09-26] MEDS: ALBUTEROL/IPRATROPIUM 3 ML AMPUL INH ×3 (09:52→18:23)
[2024-09-26] MEDS: BUDESONIDE 0.5 MG/2 ML NEB INH ×2 (09:53→18:23)
--- NOTE | 2024-09-26 11:52 | P.PN_ITS ---
Subjective Subjective Interval history: 57-year-old female with COPD, chronic hypoxic respiratory failure (prescribed 2- 3 L of oxygen continuously), chronic systolic congestive heart failure (EF 25%), coronary artery disease with her 1st MT at age 29 previous cardiac arrest status post pacemaker/AICD placement, diabetes mellitus type 2 on oral antidiabetic agents, class 3 obesity admitted initially with probable septic shock and COPD exacerbation. Overnight the patient was noted to be shaking per nursing staff with quick return to baseline. This was felt to be consistent with PNES or possibly related to her hypokalemia. She is very anxious about the way she felt yesterday evening with some loss of bowel function. She had a formed stool overnight, c. diff testing was held. ABG overnight consistent with patient's known chronic hypercapnea but she was placed on bipap overnight. This morning her breathing does appear improved compared to yesterday. She is nauseous this morning and has little appetite. She feels more ill than her prior admissions. K was noted to be 2.6 overnight and repleted so is up to 3.3 this morning. Exam Vital Signs (past 8 hours): - 09/26/24 04:00 09/26/24 04:00 09/26/24 04:30 Temperature Pulse Rate 64 74 Respiratory Rate 18 19 Blood Pressure 126/65 Pulse Oximetry 100 98 Oxygen Delivery Method Oxygen Flow Rate Fraction of Inspired Oxygen 09/26/24 04:47 09/26/24 05:00 09/26/24 05:00 Temperature 96.2 F L Pulse Rate 85 73 Respiratory Rate 18 18 Blood Pressure 114/60 119/73 Pulse Oximetry 97 97 Oxygen Delivery Method Oxygen Flow Rate Fraction of Inspired Oxygen 34 09/26/24 05:30 09/26/24 05:30 09/26/24 05:35 Temperature Pulse Rate 79 Respiratory Rate 18 Blood Pressure 112/68 Pulse Oximetry 98 Oxygen Delivery Method BiPAP Oxygen Flow Rate Fraction of Inspired Oxygen 09/26/24 06:00 09/26/24 06:01 09/26/24 06:01 Temperature Pulse Rate 65 60 Respiratory Rate 20 18 Blood Pressure 132/68 Pulse Oximetry 100 100 Oxygen Delivery Method Oxygen Flow Rate Fraction of Inspired Oxygen 09/26/24 06:30 09/26/24 06:30 09/26/24 07:00 Temperature Pulse Rate 72 77 Respiratory Rate 19 21 Blood Pressure 116/69 Pulse Oximetry 97 99 Oxygen Delivery Method Oxygen Flow Rate Fraction of Inspired Oxygen 09/26/24 07:00 09/26/24 07:00 09/26/24 07:30 Temperature Pulse Rate 69 Respiratory Rate 19 Blood Pressure 124/66 Pulse Oximetry 97 98 Oxygen Delivery Method BiPAP Oxygen Flow Rate 30 Fraction of Inspired Oxygen 09/26/24 07:30 09/26/24 08:00 09/26/24 08:10 Temperature 97.2 F L Pulse Rate Respiratory Rate Blood Pressure 117/68 121/72 Pulse Oximetry Oxygen Delivery Method Oxygen Flow Rate Fraction of Inspired Oxygen 30 09/26/24 10:00 09/26/24 10:03 Temperature Pulse Rate 83 Respiratory Rate 40 H Blood Pressure Pulse Oximetry 92 Oxygen Delivery Method BiPAP Oximask Oximask Oxygen Flow Rate 3 Fraction of Inspired Oxygen 32 Fraction of Inspired Oxygen 32 SaO2/FiO2 Ratio 281 Oxygen Delivery Method Oximask Oxygen Flow Rate 3 Narrative Exam Narrative: NAD, alert and oriented, fluent speech, moderately anxious. She is obese and chronically ill in appearance. She was on an on simple OxyMask. Normocephalic skull, EOMI, anicteric sclera, symmetric pupils. Oropharynx unremarkable, no droop. Neck supple, midline trachea, no adenopathy. Lungs are notable for diffuse inspiratory and expiratory wheezing though improved with bibasilar rhonchi. with a normal respiratory rate and mildly increased respiratory effort Heart regular, no murmur gallop or rub. Abdomen is soft, non distended and non tender. Extremities are free of edema. Skin is free of rash or lesions. Joints are not swollen or deformed. Judgment appears to be normal. Objective Labs 09/26/24 06:35 09/26/24 06:35 Labs: Laboratory Results - last 24 hr 09/26/24 09/26/24 09/26/24 02:07 02:32 04:34 WBC RBC Hgb Hct MCV MCH MCHC RDW Plt Count Neut % (Auto) Lymph % (Auto) Thayer % (Auto) Eos % (Auto) Baso % (Auto) Neut # (Auto) Lymph # (Auto) Thayer # (Auto) Eos # (Auto) Baso # (Auto) ABG Sample Site Left radial ABG pH 7.37 ABG pCO2 62.9 H* ABG pO2 79 L ABG HCO3 36 H ABG Total CO2 35 H ABG O2 Saturation 95 ABG Base Excess 8.5 H Jai Test Positive VBG pH 7.32 L VBG pCO2 70.8 H VBG pO2 43 VBG HCO3 36 H VBG Total CO2 36 H VBG O2 Saturation 72 VBG Base Excess 7.6 H FiO2 % 32 % 35.0 % Sodium 140 Potassium 2.6 L* Chloride 107 Carbon Dioxide 29 BUN 13 Creatinine 1.01 Estimated GFR > 60 BUN/Creatinine Ratio 12.9 Glucose 141 H Calcium 7.2 L 09/26/24 09/26/24 04:49 06:35 WBC 6.9 RBC 4.54 Hgb 11.7 L Hct 37.0 MCV 81.6 MCH 25.8 L MCHC 31.6 RDW 19.0 H Plt Count 205 Neut % (Auto) 68.6 Lymph % (Auto) 19.0 L Thayer % (Auto) 10.9 Eos % (Auto) 0.7 L Baso % (Auto) 0.8 Neut # (Auto) 4700 Lymph # (Auto) 1300 Thayer # (Auto) 700 Eos # (Auto) 0 Baso # (Auto) 100 ABG Sample Site ABG pH ABG pCO2 ABG pO2 ABG HCO3 ABG Total CO2 ABG O2 Saturation ABG Base Excess Jai Test VBG pH 7.38 VBG pCO2 61.6 H VBG pO2 46 H VBG HCO3 36 H VBG Total CO2 36 H VBG O2 Saturation 79 H VBG Base Excess 9.1 H FiO2 % 35.0 % Sodium 138 Potassium 3.3 L Chloride 100 Carbon Dioxide 33 H BUN 18 H Creatinine 1.12 H Estimated GFR 56 L BUN/Creatinine Ratio 16.1 Glucose 121 H Calcium 8.6 PFSH Medical History Cardiac arrhythmia Morbid obesity due to excess calories Elevated brain natriuretic peptide (BNP) level Acute and chronic respiratory failure with hypoxia Chronic anticoagulation Cervical spondylosis Neck pain Cervical radiculopathy CAD (coronary artery disease) Congestive heart failure COPD (chronic obstructive pulmonary disease) Surgical History AICD (automatic cardioverter/defibrillator) present H/O heart artery stent Social History household members: spouse lives independently: Yes Smoking Status: Current every day smoker alcohol intake: never Assessment & Plan Assessment & Plan narrative: 1. Acute exacerbation of chronic obstructive pulmonary disease, present on admission and active. - continue prednisone 40 mg daily x5 days 2. Septic shock secondary Pneumonia, present on admission and active. - continue antibiotics with ceftriaxone and azithromycin. - was on levophed in the ER and overnight, weaned off on HD#1. Hypotension possibly due to entresto and illness. Have since resumed entresto. - improved BP on HD#1 so resume entresto cautiously. 3. Acute and chronic respiratory failure with hypoxia, present on admission and improved. See above plan 4. Chronic systolic heart failure, stable. Severe chronic Systolic CHF LVEF 25% Monitor Intake and Output Daily weight Continue Entresto, Empagloflozin, and home furosemide 5. Chronic anticoagulation, stable. On Chronic A/C / Apixaban , sec to Severe Cardiomyopathy/ h/o Cardiac arrythmias, been on Amiodarone and Mexilitine , has AICD - will stop telemetry as it predominantly showed paced rhythm. 6. Morbid obesity due to excess calories, stable. The patient is at much higher risk for medical and surgical complications because of their obesity. This increases the difficulty and complexity of medical and surgical interventions and increases the chances of poor outcomes such as morbidity and mortality. 7. Diabetes mellitus, type 2, stable. patient gets very upset and threatens to leave if her diet is anything other than general diet while admitted here. glucose 124 this morning continue lantus 10 U in AM, sliding scale 8. Hypokalemia - repleted with IV and PO, continue to monitor potassium 9. Anxiety - patient has chronic anxiety, states she is typically able to manage this at home with coping mechanisms such as gardening or leaving her house or walking her dog. Will continue prn benzos while in the hospital for severe symptoms. Full code. Given overnight events will keep in the ICU (required bipap) for today. Anticipate discharge home once feeling improved likely in 2-3 more days though patient is quite slow to improve based on prior admissions here typically. I spent 30 minutes providing critical care management this patient. This excludes time spent in performing separately billed procedures. Time-Based Coding :: [TOTAL MINUTES] spent with patient and on the chart (including review of chart, obtaining history, exam, reviewing outside data, placing orders, documenting exam and treatment plan, and counseling patient) on [DATE]. Quality VTE Deep Vein Thrombosis/Pulmonary Embolism Present on Admission: No
[2024-09-26] MEDS: INSULIN LISPRO 100 UNIT/ML 3ML VIAL SUBCUT ×4 (12:06→20:36)
[2024-09-26] MEDS: OXYCODONE/ACETAMINOPHEN 5/325 TABLET 1 TAB PO ×2 (13:33→20:24)
[2024-09-26] MEDS: cefTRIAXone 1,000 MG in SODIUM CHLORIDE 0.9% 100 ML 200 MG IV (15:22)
--- NOTE | 2024-09-26 15:42 | CM.DPNOTE ---
DCP Cont Emailed Rach at [facility] clinical along with F2F and HH order. Plan: Discharge home, resumption of [facility] services. Family vs [facility] transport vs [employer] [phone] to transport home. Following for coordination. JW
[2024-09-26] MEDS: BUTALB/APAP/CAFFEINE 50/325/40 TABLET 1 EACH PO ×2 (17:45→21:23)
[2024-09-26] MEDS: AZITHROMYCIN 500 MG in DEXTROSE 5% IN WATER 250 ML 250 MG IV (20:11)
[2024-09-26] MEDS: MONTELUKAST 10 MG TABLET PO (20:24)
[2024-09-26] MEDS: ONDANSETRON 4 MG/2 ML INJ IV (21:23)
[2024-09-27] VITALS (20 sets, daily range): BP systolic 120–144; BP diastolic 60–68; PULSE 68–92; RESP 21–32; TEMP 36.2–36.4; O2SAT 90–98
[2024-09-27] MEDS: ALBUTEROL 2.5 MG/3 ML NEB (ADULT) INH (02:46)
[2024-09-27 05:05] LABS: Add Manual Diff / Slide Review NO; Basophils Absolute Auto 100 /uL (0-100); Basophils Percent Auto 1.1 % (0-2); Eosinophils Absolute Auto 0 /uL (0-450); Eosinophils Percent Auto 0.2 % (2-4); Hematocrit 36.2 % (36-46); Hemoglobin 11.5 g/dL (12.0-16.0); Lymphocytes Absolute Auto 1100 /uL (1100-4500); Lymphocytes Percent Auto 20.3 % (25-40); Mean Corpuscular HGB Conc 31.7 % (30-36); Mean Corpuscular Hemoglobin 25.6 PG (26-34); Monocytes Absolute Auto 700 /uL (0-900); Monocytes Percent Auto 13.1 % (3-14); Neutrophils Absolute Auto 3500 /uL (1500-7000); Neutrophils Percent Auto 65.3 % (50-75); Platelet Count 201 X10^3/uL (150-400); Red Blood Cell Count 4.47 X10^6/uL (4.0-5.2); Red Cell Distribution Width 18.6 % (11.6-14.8); White Blood Cell Count 5.4 X10^3/uL (4.5-11.0)
[2024-09-27 05:15] LABS: BUN Creatinine Ratio 20.3 (6-22); Blood Urea Nitrogen 16 mg/dL (7-17); Calcium 9.3 mg/dL (8.4-10.2); Carbon Dioxide 34 mmol/L (22-32); Chloride 100 mmol/L (98-107); Estimated Glomerular Filt Rate > 60 mL/min (>60); Glucose 163 mg/dL (70-99); HEMOLYSIS < 15 (0-50); Potassium 3.8 mmol/L (3.4-5.1); Sodium 136 mmol/L (137-145)
[2024-09-27 05:16] LABS: Magnesium 1.9 mg/dL (1.6-2.3)
[2024-09-27] MEDS: OXYCODONE/ACETAMINOPHEN 5/325 TABLET 1 TAB PO ×2 (07:22→23:47)
[2024-09-27] MEDS: INSULIN LISPRO 100 UNIT/ML 3ML VIAL SUBCUT ×6 (08:20→20:45)
[2024-09-27] MEDS: INSULIN GLARGINE 100 UNIT/ML 3ML PEN 12 UNIT SUBCUT (08:21)
[2024-09-27] MEDS: predniSONE 20 MG TABLET 40 MG PO (08:21)
[2024-09-27] MEDS: ASPIRIN EC 81 MG TABLET PO (08:21)
[2024-09-27] MEDS: LORATADINE 10 MG TABLET PO (08:21)
[2024-09-27] MEDS: Mexiletine 150 mg capsule 150 EACH PO ×2 (08:21→20:41)
[2024-09-27] MEDS: diazePAM 5 MG TABLET PO (08:22)
[2024-09-27] MEDS: MULTIVITAMIN 1 TABLET 1 TAB PO (08:22)
[2024-09-27] MEDS: AMIODARONE 200 MG TABLET 100 MG PO (08:22)
[2024-09-27] MEDS: APIXABAN 5 MG TABLET PO ×2 (08:22→20:40)
[2024-09-27] MEDS: ALBUTEROL/IPRATROPIUM 3 ML AMPUL INH ×4 (08:51→23:15)
[2024-09-27] MEDS: BUDESONIDE 0.5 MG/2 ML NEB INH ×2 (08:51→17:56)
[2024-09-27] MEDS: PHENOL LIQUID 100 SPRAYS/BOTTLE SPRAY MM (09:18)
--- NOTE | 2024-09-27 10:19 | PM.PN.1 ---
Subjective Subjective Interval history: 57-year-old female with COPD, chronic hypoxic respiratory failure (prescribed 2-3 L of oxygen continuously), chronic systolic congestive heart failure, coronary artery disease with her 1st RI at age 29 previous cardiac arrest status post pacemaker/AICD placement, diabetes mellitus type 2 on oral antidiabetic agents, class 3 obesity admitted w/RUL pneumonia and COPD exac. Patient reports she has not feeling any better than she did on admission. She continues to have a harsh cough. She reports her sputum is more foamy today. She states it is difficult to expectorate. She complains of a sore throat related to coughing Exam Vital Signs (past 8 hours): - 09/27/24 05:00 09/27/24 07:00 09/27/24 07:00 Temperature 97.5 F L Pulse Rate 68 Respiratory Rate 21 Blood Pressure 120/62 Pulse Oximetry 95 96 Oxygen Delivery Method Oximask Oximask Oxygen Flow Rate 3 3 Fraction of Inspired Oxygen 09/27/24 09:25 09/27/24 10:00 Temperature Pulse Rate 79 Respiratory Rate 32 H Blood Pressure Pulse Oximetry 95 Oxygen Delivery Method Oximask Oximask Oxygen Flow Rate 3 Fraction of Inspired Oxygen 32 Fraction of Inspired Oxygen 32 SaO2/FiO2 Ratio 296 Oxygen Delivery Method Oximask Oxygen Flow Rate 3 Narrative Exam Narrative: GEN: Middle-aged female, Alert and oriented x 3, NAD HEENT:NC, Face symmetric CHEST: Respiratory excursions symmetric, inspiratory and expiratory upper airway wheezes which gradually improved during our conversation, diffusely diminished CV: RRR, no M/R/G ABD: Soft, obese, NT/ND, BT present in all 4 quadrants, body habitus limits exam EXTR: warm, well perfused, no C/C/E SKIN: warm and dry, no rash NEURO: Alert and oriented x 3, nonfocal Objective Labs 09/27/24 04:50 09/27/24 04:50 Labs: Laboratory Results - last 24 hr 09/27/24 04:50 WBC 5.4 RBC 4.47 Hgb 11.5 L Hct 36.2 MCV 81.0 MCH 25.6 L MCHC 31.7 RDW 18.6 H Plt Count 201 Neut % (Auto) 65.3 Lymph % (Auto) 20.3 L Lyman % (Auto) 13.1 Eos % (Auto) 0.2 L Baso % (Auto) 1.1 Neut # (Auto) 3500 Lymph # (Auto) 1100 Lyman # (Auto) 700 Eos # (Auto) 0 Baso # (Auto) 100 Sodium 136 L Potassium 3.8 Chloride 100 Carbon Dioxide 34 H BUN 16 Creatinine 0.79 Estimated GFR > 60 BUN/Creatinine Ratio 20.3 Glucose 163 H Calcium 9.3 Magnesium 1.9 [facility] Medical History Cardiac arrhythmia Morbid obesity due to excess calories Elevated brain natriuretic peptide (BNP) level Acute and chronic respiratory failure with hypoxia Chronic anticoagulation Cervical spondylosis Neck pain Cervical radiculopathy CAD (coronary artery disease) Congestive heart failure COPD (chronic obstructive pulmonary disease) Surgical History AICD (automatic cardioverter/defibrillator) present H/O heart artery stent Social History household members: spouse lives independently: Yes Smoking Status: Current every day smoker alcohol intake: never Assessment & Plan Assessment & Plan narrative: 1. Right upper lobe pneumonia Continues on ceftriaxone and azithromycin for community-acquired pneumonia. She does have decreased sputum production overall. Using a flutter valve with some success. 2. COPD with exacerbation Continue prednisone, nebulizer treatments, supplemental oxygen. While she did initially appear to be diffusely wheezy, the longer I was with her, the more it appeared to be upper airway rather than lower airway. Will continue monitoring closely. 3. Chronic systolic congestive heart failure She appears euvolemic presently. Continue Entresto, furosemide, and Januvia 4. Septic shock Secondary to pneumonia. Resolved. 5. Chronic anticoagulation Continues on apixaban. 6. Chronic cardiomyopathy Remains on amiodarone and mexiletine. She is status post AICD placement. 7. Diabetes mellitus type 2 Continues on a general diet per her stated preference. Continue Lantus and sliding scale. 8. Anxiety Continue diazepam as needed 9. Hypokalemia Continue repleting as needed Code status Full Prophylaxis On apixaban Disposition Transfer from ICU to acute care. Time-Based Coding :: [TOTAL MINUTES] spent with patient and on the chart (including review of chart, obtaining history, exam, reviewing outside data, placing orders, documenting exam and treatment plan, and counseling patient) on [DATE]. Quality VTE Deep Vein Thrombosis/Pulmonary Embolism Present on Admission: No
--- NOTE | 2024-09-27 14:18 | CM.DPC ---
DCP Cont: Per MD, pt down graded from ICU to floor care and back to baseline oxygen needs and transitioned to PO Prednisone and likely could be stable for discharge today but will prepare patient for plan of discharge home tomorrow Sun 09/28. SW met bedside with pt and explained role and discussed plan of discharge home tomorrow with [facility] and pt states I feel blindsided and rushed into leaving the hospital and I should have heard that from the doctor and not just a paper pusher like you. Discussed Multidisciplinary team and role of party planner and acknowledged her feelings of being caught off guard but encouraged pt to use this time to talk to her family and make preparations for discharge likely tomorrow Sun if stable. Pt states she is unsure if her family can afford gas to transport her at d/c but that she will call her granddtr now and states she may need to use her [facility] [employer] [phone] benefits for transport home. SW updated RN and MD on pt's anxiety regarding discharge tomorrow. Plan: SW to follow closely for plan of discharge home tomorrow Sun if stable with [facility] via family or insurance [employer]. Potential for patient Appealing Discharge through Medicare due to her hx of resistance to discharge. GEORGE Mcclain
--- NOTE | 2024-09-27 14:49 | PT.IIE ---
Current Diagnoses Chronic obstructive pulmonary disease with (acute) exacerbation (09/24/24) Surgical History (Last Reviewed 09/24/24 @ 15:56 by Jai Thornton MD) AICD (automatic cardioverter/defibrillator) present H/O heart artery stent Medical History (Last Reviewed 09/24/24 @ 15:56 by Jai Thornton MD) Acute and chronic respiratory failure with hypoxia CAD (coronary artery disease) Cardiac arrhythmia Cervical radiculopathy Cervical spondylosis Chronic anticoagulation Congestive heart failure COPD (chronic obstructive pulmonary disease) Elevated brain natriuretic peptide (BNP) level Morbid obesity due to excess calories Neck pain Physical Therapy Inpatient Evaluation/Re-Eval M1 PT/OT-IP Prior Functional Status Start: 09/27/24 15:25 Freq: NEEDED Status: Active Protocol: Document 09/27/24 14:49 AB (Rec: 09/27/24 15:45 AB Desktop) Medical Review Prior Functional Status Medical History Reviewed Yes Communication able to make needs known Mobility and Gait pt stated that she was modified independent with all mobilities and ambulation without AD but furniture cruises when inside the RV and uses her power w/c for outdoor mobility Social History Household Members spouse Living Arrangements RV Number of Floors (Floors) Two Floors Number of Stairs To Enter/Railing? 5 steps L rail ascending to enter the RV has 3 steps bilateral jay to bathroom has 1 step down to kitchen Home Environment Standard Height Toilet,Walk in Shower Home Equipment Power Wheelchair/Scooter, Shower Seat without Backrest, Hand Held Shower Additional Social History Comment pt stated that spouse cannot assist her much at home; granddaughter comes in 2-3x/wk to assist pt M2 PT-IP Current Condition Start: 09/27/24 15:25 Freq: NEEDED Status: Active Protocol: Document 09/27/24 14:49 AB (Rec: 09/27/24 15:45 AB Desktop) Physical Therapy Current Condition Current Condition Evaluation Date 09/27/24 Treatment Diagnosis PNA; COPD exacerbation; difficulty in walking Onset Date 09/24/24 M3 PT-IP Subjective Start: 09/27/24 15:25 Freq: NEEDED Status: Active Protocol: Document 09/27/24 14:49 AB (Rec: 09/27/24 15:45 AB Desktop) Subjective Physical Therapy Visit Type Type Initial Evaluation Visit Start Time 14:49 Visit Stop Time 15:25 Number of FLOWER PICKER Visits 0 Physical Therapy Visit Comments Patient Comments pt expressed frustration regarding pending d/c tomorrow . stated that she does not feel she is ready to go home and that she still feels weak Therapy Pain Assessment Pain When Pain Assessed At Rest Pain Present Pain Present Pain Reported Location Right Lateral Thigh Scale Used pain scale not stated Pain Management Techniques Distraction,Modification of Treatment M4 PT-IP Mobility and Gait Start: 09/27/24 15:25 Freq: NEEDED Status: Active Protocol: Document 09/27/24 14:49 AB (Rec: 09/27/24 15:45 AB Desktop) PT-Bed Mobility Assessment Supine to Sit Supine to Sit Standby Assistance Sit to Supine Sit to Supine Standby Assistance PT-Transfer Assessment Sit to and From Stand Sit to and from Stand Standby Assistance,1 Person Assistance,Use of Upper Extremities Equipment Transfer Assistive Device Front Wheeled Walker Orthotic/Prosthetic Devices or Brace: No Comments Mobility Comments pt sitting on the bed. agreed to do PT but expressed frustration regarding pending d/c tomorrow. group social worker aware. obtained PLOF and home set up. BP: 124/60 O2 sat with 3L/ min O2: 92%. bed mobility SBA . pt refused safety belt and stated that she does not need it. sit to stand SBA and pt ambulated in room using FWW ~ 50 ft SBA. presents with slow paced gait. (+) SOB. O2 sat: 92% after ambulation. pt refused to sit up on a chair and wants to go back to bed. stated that she is tired and refused further activities. got back to bed SBA. call light and table placed within reach. Gait Assessment Gait Gait Assistance Required: Standby Assistance Distance (Feet) 50 Able to Maintain Weight Bearing Status Yes During Gait Assistive Devices Assistive Device Gait Belt,Front Wheeled Walker Orthotic/Prosthetic Devices or Brace: No Gait Deviations General Gait Pattern Decreased Stride Length, Decreased Feet Clearance Factors Limiting Gait Function Factors Limiting Gait Function Decreased Activity Tolerance, Poor Balance,Poor Safety Awareness,Respiratory Distress PT-Balance Assessment Sitting Balance and Reactions Static Sitting Balance Ability Good Dynamic Sitting Balance Ability Good Standing Balance and Reactions Static Standing Balance Ability Good Dynamic Standing Balance Ability Fair Device Used FWW M5 PT-IP Objective Assessments Start: 09/27/24 15:25 Freq: NEEDED Status: Active Protocol: Document 09/27/24 14:49 AB (Rec: 09/27/24 15:45 AB Desktop) Orientation Orientation/Cognition Level of Alertness Alert Orientation Name,Place,Situation Safety Awareness Decreased Safety Awareness Memory Description No Deficits Noted Gross Range of Motion Lower Extremity ROM Assessment Within Functional Limits Strength Lower Extremity Strength Assessment Within Functional Limits Muscle Tone Muscle Tone WNL Yes M6 PT-IP Treatment Start: 09/27/24 15:25 Freq: NEEDED Status: Active Protocol: Document 09/27/24 14:49 AB (Rec: 09/27/24 15:45 AB Desktop) Physical Therapy Treatment Education Education Provided Safety M7 PT-IP Assessment and Plan Start: 09/27/24 15:25 Freq: NEEDED Status: Active Protocol: Document 09/27/24 14:49 AB (Rec: 09/27/24 15:45 AB Desktop) PT Summary Assessment and Plan Potential Rehabilitation Potential Fair Status of Condition at Evaluation Evolving Summary Impairments Pain,ROM,Strength,Balance, Coordination,Sensation,Tone, Cognition,Bed Mobility, Transfers,Gait,Activity Tolerance Assessment Summary pt is a 59 y/o F who is admitted for PNA; COPD exacerbation. pt h/o frequent hospitalizations. pt requiring SBA with bed mobility, transfers and ambulation using FWW but with decrease activity tolerance affecting mobility independence. pt lives with spouse but spouse has limited capability to assist pt due to his own medical issues. will continue to assess progress. pt will benefit from HHPT to improve overall strength and activity tolerance. Goals Bed Mobility Goal Independent Transfer Goal Independent Gait Goal Independent Gait Distance 50 Other Goals up/down 5 steps L rail ascending SBA Days to Meet Goals 10 Frequency of Treatment Frequency Of Treatment Once a Day Treatment Plan Physical Therapy Treatment Plan Bed Mobility Training,Transfer Training,Gait Training, Therapeutic Exercise,Balance Retraining,Post Op Education, Discharge Planning,Hot or Cold Pack,Neuromuscular Re-ed, Coordination Retraining,Manual Therapy Precautions Other Precautions O2 sat Recommendations To Nursing Amount of Assist Needed 1 Person Assist Discharge Recommendations PT Discharge Recommendations Home with Assistance,Home Health Transportation Needs at Discharge Private Vehicle - PT assist 1
[2024-09-27] MEDS: cefTRIAXone 1,000 MG in SODIUM CHLORIDE 0.9% 100 ML 200 MG IV (15:55)
[2024-09-27] MEDS: MONTELUKAST 10 MG TABLET PO (20:40)
[2024-09-27] MEDS: BUTALB/APAP/CAFFEINE 50/325/40 TABLET 1 EACH PO (20:41)
[2024-09-27] MEDS: ONDANSETRON 4 MG/2 ML INJ IV (23:47)
[2024-09-28] VITALS (23 sets, daily range): BP systolic 136–157; BP diastolic 61–75; PULSE 54–84; RESP 20–28; TEMP 36.5–36.6; O2SAT 86–98
[2024-09-28] MEDS: ALBUTEROL 2.5 MG/3 ML NEB (ADULT) INH ×2 (04:21→17:33)
[2024-09-28] MEDS: predniSONE 20 MG TABLET 40 MG PO (08:10)
[2024-09-28] MEDS: AMIODARONE 200 MG TABLET 100 MG PO (08:10)
[2024-09-28] MEDS: APIXABAN 5 MG TABLET PO ×2 (08:11→20:39)
[2024-09-28] MEDS: BUTALB/APAP/CAFFEINE 50/325/40 TABLET 1 EACH PO (08:11)
[2024-09-28] MEDS: LORATADINE 10 MG TABLET PO (08:11)
[2024-09-28] MEDS: ASPIRIN EC 81 MG TABLET PO (08:12)
[2024-09-28] MEDS: Mexiletine 150 mg capsule 150 EACH PO ×2 (08:12→20:40)
[2024-09-28] MEDS: MULTIVITAMIN 1 TABLET 1 TAB PO (08:12)
[2024-09-28] MEDS: INSULIN GLARGINE 100 UNIT/ML 3ML PEN 12 UNIT SUBCUT (08:12)
[2024-09-28] MEDS: INSULIN LISPRO 100 UNIT/ML 3ML VIAL SUBCUT ×6 (08:13→20:39)
[2024-09-28] MEDS: OXYCODONE/ACETAMINOPHEN 5/325 TABLET 1 TAB PO (08:21)
--- NOTE | 2024-09-28 09:00 | PT.IPTN ---
Current Diagnoses Chronic obstructive pulmonary disease with (acute) exacerbation (09/24/24) Physical Therapy Treatment Note M2 PT-IP Current Condition Start: 09/27/24 15:25 Freq: NEEDED Status: Active Protocol: Document 09/27/24 14:49 AB (Rec: 09/27/24 15:45 AB Desktop) Physical Therapy Current Condition Current Condition Evaluation Date 09/27/24 Treatment Diagnosis PNA; COPD exacerbation; difficulty in walking Onset Date 09/24/24 M3 PT-IP Subjective Start: 09/27/24 15:25 Freq: NEEDED Status: Active Protocol: Document 09/28/24 08:31 MB (Rec: 09/28/24 09:00 MB Desktop) Subjective Physical Therapy Visit Type Type Treatment Note Visit Start Time 08:31 Visit Stop Time 08:54 Number of HOME MANAGER Visits 0 Physical Therapy Visit Comments Patient Comments Pt states that she isn't feeling well and she is concerned about discharging today. Therapy Pain Assessment Pain When Pain Assessed During Mobility Pain Present Pain Present Pain Reported Location Right hip Intensity 8 Scale Used Numeric (0 - 10) Head Intensity 8 Scale Used Numeric (0 - 10) M4 PT-IP Mobility and Gait Start: 09/27/24 15:25 Freq: NEEDED Status: Active Protocol: Document 09/28/24 08:31 MB (Rec: 09/28/24 09:00 MB Desktop) PT-Bed Mobility Assessment Scooting Scooting to Edge of Bed Standby Assistance Scooting Up and Down in Bed Standby Assistance PT-Transfer Assessment Sit to and From Stand Sit to and from Stand Standby Assistance,1 Person Assistance,Use of Upper Extremities Equipment Transfer Assistive Device Front Wheeled Walker Orthotic/Prosthetic Devices or Brace: No Transfers Transfer Destination Bed,Toilet Transfer Technique Ambulation with RW Transfer Ability Level of Assist Standby Assistance,1 Person Assistance,Use of Upper Extremities Comments Mobility Comments Pt tends to sit up in the bed, uses rails, HOB up and does not lie back. Pt with 3L O2 donned with face mask and O2 sats decrease to 91% with mobility and she presents with severe JAUREGUI, superv for toileting tasks and PT provides hand branch account manager after toileting. Gait Assessment Gait Gait Assistance Required: Standby Assistance,1 Person Assist Distance (Feet) 20 Able to Maintain Weight Bearing Status Yes During Gait Assistive Devices Assistive Device Front Wheeled Walker Gait Deviations General Gait Pattern Decreased Stride Length, Decreased Feet Clearance Factors Limiting Gait Function Factors Limiting Gait Function Decreased Activity Tolerance, Poor Balance,Poor Safety Awareness,Respiratory Distress Comments Gait Comments Pt refuses gait belt and states she has been getting up without one with assistance and PT does not see one readily available in room. Pt gait trains 20'x2 Stair Climbing Assessment Comments Stair Climbing Comments Deferred bringing step in today d/t respiratory presentation PT-Balance Assessment Sitting Balance and Reactions Static Sitting Balance Ability Good Dynamic Sitting Balance Ability Good Standing Balance and Reactions Static Standing Balance Ability Good Dynamic Standing Balance Ability Fair Device Used FWW M5 PT-IP Objective Assessments Start: 09/27/24 15:25 Freq: NEEDED Status: Active Protocol: Document 09/27/24 14:49 AB (Rec: 09/27/24 15:45 AB Desktop) Orientation Orientation/Cognition Level of Alertness Alert Orientation Name,Place,Situation Safety Awareness Decreased Safety Awareness Memory Description No Deficits Noted Gross Range of Motion Lower Extremity ROM Assessment Within Functional Limits Strength Lower Extremity Strength Assessment Within Functional Limits Muscle Tone Muscle Tone WNL Yes M6 PT-IP Treatment Start: 09/27/24 15:25 Freq: NEEDED Status: Active Protocol: Document 09/27/24 14:49 AB (Rec: 09/27/24 15:45 AB Desktop) Physical Therapy Treatment Education Education Provided Safety M7 PT-IP Assessment and Plan Start: 09/27/24 15:25 Freq: NEEDED Status: Active Protocol: Document 09/28/24 08:31 MB (Rec: 09/28/24 09:00 MB Desktop) PT Summary Assessment and Plan Potential Rehabilitation Potential Fair Status of Condition at Evaluation Evolving Summary Impairments Pain,Balance,Bed Mobility, Transfers,Gait,Activity Tolerance Progress Towards Goals Progressing Toward Goals Assessment Summary Pt reports not feeling well and she has respiratory sounds with breathing and JAUREGUI when up, she has 3L O2 donned, which she states is her baseline, and her O2 sats decrease to 91% with mobility. Deferred step training today d/t presentation. Goals Bed Mobility Goal Independent Transfer Goal Independent Gait Goal Independent Gait Distance 50 Other Goals up/down 5 steps L rail ascending SBA Days to Meet Goals 10 Frequency of Treatment Frequency Of Treatment Once a Day Treatment Plan Physical Therapy Treatment Plan Bed Mobility Training,Transfer Training,Gait Training, Therapeutic Exercise,Balance Retraining,Discharge Planning, Hot or Cold Pack,Neuromuscular Re-ed,Coordination Retraining ,Manual Therapy Precautions Other Precautions O2 sat Recommendations To Nursing Amount of Assist Needed 1 Person Assist Discharge Recommendations PT Discharge Recommendations Home with Assistance,Home Health Transportation Needs at Discharge Private Vehicle - PT assist 1
[2024-09-28] MEDS: ALBUTEROL/IPRATROPIUM 3 ML AMPUL INH ×3 (10:17→20:15)
[2024-09-28] MEDS: BUDESONIDE 0.5 MG/2 ML NEB INH ×2 (10:17→20:15)
[2024-09-28] MEDS: SUMAtriptan 25 MG TABLET PO (12:47)
[2024-09-28] MEDS: PROMETHAZINE 25 MG TABLET PO (12:47)
[2024-09-28] MEDS: diazePAM 5 MG TABLET PO (12:47)
[2024-09-28] MEDS: cefTRIAXone 1,000 MG in SODIUM CHLORIDE 0.9% 100 ML 200 MG IV (15:10)
--- NOTE | 2024-09-28 15:43 | CM.DPNOTE ---
DCP note AIRCRAFT RIGGING AND CONTROLS MECHANIC reviewed EMR per provider in morning rounds, anticipate dc home Sunday. Per RN when this AIRCRAFT RIGGING AND CONTROLS MECHANIC attempted to meet with pt in room, was very anxious and just had anxiety/pain meds. very sleepy. AIRCRAFT RIGGING AND CONTROLS MECHANIC attempted to rise, sleeping heavily. Plan: SW to follow closely for plan of discharge home tomorrow Sunday if stable with Resumption [facility] via family or insurance [facility]. Potential for patient Appealing Discharge through Medicare due to her hx of resistance to discharge. GEORGE Porter
--- NOTE | 2024-09-28 15:47 | P.PN_ITS ---
Subjective Subjective Interval history: 59-year-old female with COPD, chronic hypoxic respiratory failure (prescribed 2- 3 L of oxygen continuously), chronic systolic congestive heart failure, coronary artery disease with her 1st [place] at age 29 previous cardiac arrest status post pacemaker/AICD placement, diabetes mellitus type 2 on oral antidiabetic agents, class 3 obesity admitted w/RUL pneumonia and COPD exac. Patient has completed day 5 of ceftriaxone today. She remains on oral prednisone. She did develop nausea, vomiting, and a migraine headache this afternoon. She was given 25 mg of oral promethazine, a dose of sumatriptan as well as 5 mg of oral diazepam. She is presently sleeping quite soundly. Exam Vital Signs (past 8 hours): - 09/28/24 08:10 09/28/24 08:11 09/28/24 08:11 Temperature 97.7 F Pulse Rate 73 Respiratory Rate 20 Blood Pressure 148/69 H Pulse Oximetry 94 95 Oxygen Delivery Method 09/28/24 08:44 09/28/24 09:00 09/28/24 10:17 Temperature Pulse Rate 54 L 62 Respiratory Rate Blood Pressure Pulse Oximetry 91 98 Oxygen Delivery Method Oximask 09/28/24 12:39 09/28/24 13:00 Temperature Pulse Rate 84 66 Respiratory Rate Blood Pressure Pulse Oximetry 90 L 92 Oxygen Delivery Method Fraction of Inspired Oxygen 32 SaO2/FiO2 Ratio 293 Oxygen Delivery Method Oximask Oxygen Flow Rate 2 Narrative Exam Narrative: GEN: Middle-aged female, sleeping deeply HEENT:NC, Face symmetric CHEST: Respiratory excursions symmetric, diffusely diminished with end expiratory wheezes CV: RRR, no M/R/G ABD: Soft, obese, NT/ND, BT present in all 4 quadrants, body habitus limits exam EXTR: warm, well perfused, no C/C/E SKIN: warm and dry, no rash NEURO: Sleeping deeply, did not awaken during my visit Objective Labs 09/27/24 04:50 09/27/24 04:50 PFSH Medical History Cardiac arrhythmia Morbid obesity due to excess calories Elevated brain natriuretic peptide (BNP) level Acute and chronic respiratory failure with hypoxia Chronic anticoagulation Cervical spondylosis Neck pain Cervical radiculopathy CAD (coronary artery disease) Congestive heart failure COPD (chronic obstructive pulmonary disease) Surgical History AICD (automatic cardioverter/defibrillator) present H/O heart artery stent Social History household members: spouse lives independently: Yes Smoking Status: Current every day smoker alcohol intake: never Assessment & Plan Assessment & Plan narrative: 1. Right upper lobe pneumonia Completed ceftriaxone and azithromycin for community-acquired pneumonia. She does have decreased sputum production overall. Had been a flutter valve with some success. 2. COPD with exacerbation Continue prednisone, nebulizer treatments, supplemental oxygen. Continues to have end expiratory wheezes today. I did review previous hospital stays and it appears when she does discharge her lungs are typically clear. Based on that, she will likely not be ready for discharge for another 1-2 days, depending on her lung exam and degree of improvement. 3. Chronic systolic congestive heart failure She appears euvolemic presently. Continue Entresto, furosemide, and Januvia 4. Septic shock Secondary to pneumonia. Resolved. 5. Chronic anticoagulation Continues on apixaban. 6. Chronic cardiomyopathy Remains on amiodarone and mexiletine. She is status post AICD placement. 7. Diabetes mellitus type 2 Continues on a general diet per her stated preference. Continue Lantus and sliding scale. 8. Anxiety Continue diazepam as needed 9. Hypokalemia Normalized on labs yesterday. Code status Full Prophylaxis On apixaban Disposition Continue inpatient acute care. Physical therapy consulted yesterday and recommended home with home health or assistance Time-Based Coding :: [TOTAL MINUTES] spent with patient and on the chart (including review of chart, obtaining history, exam, reviewing outside data, placing orders, documenting exam and treatment plan, and counseling patient) on [DATE]. Quality VTE Deep Vein Thrombosis/Pulmonary Embolism Present on Admission: No
[2024-09-28] MEDS: ONDANSETRON 4 MG/2 ML INJ IV (18:13)
[2024-09-28] MEDS: MONTELUKAST 10 MG TABLET PO (20:39)
[2024-09-29] VITALS (17 sets, daily range): BP systolic 124–136; BP diastolic 60–70; PULSE 58–77; RESP 18–28; TEMP 35.8–36.6; O2SAT 87–97
[2024-09-29] MEDS: OXYCODONE/ACETAMINOPHEN 5/325 TABLET 1 TAB PO ×3 (00:52→23:45)
[2024-09-29] MEDS: diazePAM 5 MG TABLET PO ×2 (02:34→23:45)
[2024-09-29] MEDS: guaiFENesin Solution 100 MG/5 ML UDC PO ×3 (03:05→20:20)
[2024-09-29] MEDS: BENZONATATE 100 MG CAPSULE PO ×2 (03:05→12:15)
[2024-09-29] MEDS: BUDESONIDE 0.5 MG/2 ML NEB INH ×2 (07:27→18:48)
[2024-09-29] MEDS: ALBUTEROL/IPRATROPIUM 3 ML AMPUL INH ×5 (07:27→22:46)
[2024-09-29] MEDS: AMIODARONE 200 MG TABLET 100 MG PO (08:27)
[2024-09-29] MEDS: LORATADINE 10 MG TABLET PO (08:28)
[2024-09-29] MEDS: Mexiletine 150 mg capsule 150 EACH PO ×2 (08:28→20:21)
[2024-09-29] MEDS: predniSONE 20 MG TABLET 40 MG PO (08:28)
[2024-09-29] MEDS: ASPIRIN EC 81 MG TABLET PO (08:28)
[2024-09-29] MEDS: MULTIVITAMIN 1 TABLET 1 TAB PO (08:28)
[2024-09-29] MEDS: APIXABAN 5 MG TABLET PO ×2 (08:28→20:20)
[2024-09-29] MEDS: INSULIN LISPRO 100 UNIT/ML 3ML VIAL SUBCUT ×5 (08:29→17:09)
[2024-09-29] MEDS: INSULIN GLARGINE 100 UNIT/ML 3ML PEN 12 UNIT SUBCUT (08:30)
[2024-09-29] MEDS: PHENOL LIQUID 100 SPRAYS/BOTTLE SPRAY MM ×2 (08:40→10:18)
[2024-09-29] MEDS: ONDANSETRON 4 MG/2 ML INJ IV (10:12)
--- NOTE | 2024-09-29 12:08 | PT-IP ANOTE ---
PT checks in on pt who states she is feeling worse than yesterday and more SOB. She does not tolerate further gait and stair training at this time. She states she will d/c today and PT also does not wish to exhaust her before d/c and her having to commute home and then mobilize on steps to enter home. She states she will get HH at d/c.
[2024-09-29] MEDS: ACETAMINOPHEN 325 MG TABLET 650 MG PO (12:15)
--- NOTE | 2024-09-29 13:15 | P.PN_ITS ---
Subjective Subjective Interval history: S: She feels weak and has wheezing occasionally. Exam Vital Signs (past 8 hours): - 09/29/24 05:16 09/29/24 07:27 09/29/24 07:28 Temperature Pulse Rate 66 58 L Respiratory Rate 22 Blood Pressure Pulse Oximetry 96 94 96 Oxygen Delivery Method Oximask Oximask Oxygen Flow Rate 3 3 Fraction of Inspired Oxygen 32 09/29/24 07:30 09/29/24 08:00 09/29/24 08:00 Temperature Pulse Rate 64 59 L Respiratory Rate Blood Pressure Pulse Oximetry 97 95 96 Oxygen Delivery Method Nasal Cannula Oxygen Flow Rate 3 Fraction of Inspired Oxygen 09/29/24 08:06 09/29/24 08:06 09/29/24 11:41 Temperature 97.8 F Pulse Rate 60 60 Respiratory Rate 21 20 Blood Pressure 124/60 Pulse Oximetry 96 91 Oxygen Delivery Method Oxygen Flow Rate 3 Fraction of Inspired Oxygen 32 09/29/24 11:42 09/29/24 12:00 09/29/24 12:30 Temperature Pulse Rate 60 63 64 Respiratory Rate Blood Pressure Pulse Oximetry 91 89 L 91 Oxygen Delivery Method Oxygen Flow Rate Fraction of Inspired Oxygen 09/29/24 13:10 Temperature Pulse Rate 77 Respiratory Rate Blood Pressure Pulse Oximetry 87 L Oxygen Delivery Method Oxygen Flow Rate Fraction of Inspired Oxygen Fraction of Inspired Oxygen 32 SaO2/FiO2 Ratio 284 Oxygen Delivery Method Nasal Cannula Oxygen Flow Rate 3 Narrative Exam Narrative: NAD, alert and oriented. Fluent speech. Lungs notable for some wheezing, normal rate and effort. Heart is regular, no murmur gallop or rub. Abdomen is soft, non distended. Extremities are free of edema. Objective Labs 09/27/24 04:50 09/27/24 04:50 [facility] Medical History Cardiac arrhythmia Morbid obesity due to excess calories Elevated brain natriuretic peptide (BNP) level Acute and chronic respiratory failure with hypoxia Chronic anticoagulation Cervical spondylosis Neck pain Cervical radiculopathy CAD (coronary artery disease) Congestive heart failure COPD (chronic obstructive pulmonary disease) Surgical History AICD (automatic cardioverter/defibrillator) present H/O heart artery stent Social History household members: spouse lives independently: Yes Smoking Status: Current every day smoker alcohol intake: never Assessment & Plan Assessment & Plan narrative: 1. COPD exacerbation, improved. She appears to be near baseline. Discussed going home with her today and initially she agreed. After placing the discharge order she decided to appeal the discharge. She was appeared to be at her baseline at this point in time. Time-Based Coding :: [TOTAL MINUTES] spent with patient and on the chart (including review of chart, obtaining history, exam, reviewing outside data, placing orders, documenting exam and treatment plan, and counseling patient) on [DATE]. Quality VTE Deep Vein Thrombosis/Pulmonary Embolism Present on Admission: No
--- NOTE | 2024-09-29 13:25 | CM.DPNOTE ---
DCP note SUPPLY TECHNICIAN reviewed EMR SUPPLY TECHNICIAN met with pt in room. provided copy of IMM. reported it was likely pt would dc today. pt reports she does not feel ready to dc. SUPPLY TECHNICIAN highlighted IMM and explained appeal process. pt reports she is weaker than normal, SUPPLY TECHNICIAN attempted to discuss if pt is weak mobility lane SNF as an option, pt stopped interacting and talking with this SUPPLY TECHNICIAN and refused to say more. SUPPLY TECHNICIAN updated medical team in morning rounds. per provider, medically cleared for Lower level of care. plans to dc if pt has a ride home, approved HH resumption. SUPPLY TECHNICIAN called ? [facility]? (thru [facility])? P [phone] for transport home, closed due to holiday. SUPPLY TECHNICIAN called [employer], confirm pt does not have medicaid transport benefits. SUPPLY TECHNICIAN met with pt and granddaughter in room. granddaughter reports pt not at her baseline, became very upset with this SUPPLY TECHNICIAN, yelling at me in room. SUPPLY TECHNICIAN encouraged pt/granddaughter if she does not feel stable for dc to appeal dc. Granddaugther took IMM from this SUPPLY TECHNICIAN and sat down immediately calling to appeal. SUPPLY TECHNICIAN updated RN/truck car and bus cleaner/provider. P: pending appeal process. anticipate dc home with family and Sig [facility] to follow. will continue to follow closely throughout appeal process GEORGE Porter
[2024-09-29] MEDS: SUMAtriptan 25 MG TABLET PO (14:29)
--- NOTE | 2024-09-29 15:03 | CM.DPC ---
DCP Appeal Process SW recieved fax from [facility] with request for clinicals to review for the pt's Appeal process with [id number] and SW uploaded requested clinicals to [facility] website ([email or web address]) for review with Confirmation # [id number]. Plan: SW to follow for [place] review and determination for plan of discharge home via family POV and Resumption of Sig HH within the next 1-2 days. GEORGE Mcclain
[2024-09-29] MEDS: MONTELUKAST 10 MG TABLET PO (20:20)
[2024-09-29] MEDS: BUTALB/APAP/CAFFEINE 50/325/40 TABLET 1 EACH PO (20:21)
[2024-09-29] MEDS: ENTRESTO 1 EACH PO (20:21)
[2024-09-30] MEDS: BUTALB/APAP/CAFFEINE 50/325/40 TABLET 1 EACH PO (04:57)
[2024-09-30 06:45] VITALS: PULSE 65; RESP 26; O2SAT 95
[2024-09-30] MEDS: BUDESONIDE 0.5 MG/2 ML NEB INH (06:45)
[2024-09-30] MEDS: ALBUTEROL/IPRATROPIUM 3 ML AMPUL INH ×3 (06:45→14:07)
[2024-09-30] MEDS: guaiFENesin Solution 100 MG/5 ML UDC PO (06:46)
[2024-09-30] MEDS: APIXABAN 5 MG TABLET PO (08:07)
[2024-09-30] MEDS: ASPIRIN EC 81 MG TABLET PO (08:07)
[2024-09-30] MEDS: MULTIVITAMIN 1 TABLET 1 TAB PO (08:07)
[2024-09-30] MEDS: LORATADINE 10 MG TABLET PO (08:07)
[2024-09-30] MEDS: ACETAMINOPHEN 325 MG TABLET 650 MG PO (08:07)
[2024-09-30] MEDS: diazePAM 5 MG TABLET PO (08:08)
[2024-09-30] MEDS: PANTOPRAZOLE DR 40 MG TABLET PO (08:08)
[2024-09-30] MEDS: BENZONATATE 100 MG CAPSULE PO (08:08)
[2024-09-30] MEDS: SUMAtriptan 25 MG TABLET PO (08:08)
[2024-09-30] MEDS: OXYCODONE/ACETAMINOPHEN 5/325 TABLET 1 TAB PO (08:08)
[2024-09-30] MEDS: AMIODARONE 200 MG TABLET 100 MG PO (08:09)
--- NOTE | 2024-09-30 08:10 | PM.PN.1 ---
Subjective Subjective Interval history: S: She was still feels wheezy. She was coughing a lot. She would some numbness in both shoulders which is a chronic recurrent some for neck and shoulder arthritis. Exam Vital Signs (past 8 hours): - 09/30/24 06:45 Pulse Rate 65 Respiratory Rate 26 H Pulse Oximetry 95 Oxygen Delivery Method Oximask Oxygen Flow Rate 3 Fraction of Inspired Oxygen 32 SaO2/FiO2 Ratio 300 Oxygen Delivery Method Oximask Oxygen Flow Rate 3 Narrative Exam Narrative: NAD, alert and oriented. Fluent speech. Lungs are notable for her wheezing with expiration which is fairly chronic feature of her exam, normal rate and effort. Heart is regular, no murmur gallop or rub. Abdomen is soft, non distended. Extremities are free of edema. Objective Labs 09/27/24 04:50 09/27/24 04:50 PFS Medical History Cardiac arrhythmia Morbid obesity due to excess calories Elevated brain natriuretic peptide (BNP) level Acute and chronic respiratory failure with hypoxia Chronic anticoagulation Cervical spondylosis Neck pain Cervical radiculopathy CAD (coronary artery disease) Congestive heart failure COPD (chronic obstructive pulmonary disease) Surgical History AICD (automatic cardioverter/defibrillator) present H/O heart artery stent Social History household members: spouse lives independently: Yes Smoking Status: Current every day smoker alcohol intake: never Assessment & Plan Assessment & Plan narrative: 1. Acute exacerbation of chronic obstructive pulmonary disease, present on admission and improved. 2. Acute and chronic respiratory failure with hypoxia, present on admission and improved. 3. Chronic systolic heart failure, stable. Severe chronic Systolic CHF LVEF 25% 4. Chronic anticoagulation, stable. On Chronic A/C / Apixaban , sec to Severe Cardiomyopathy/ h/o Cardiac arrythmias, been on Amiodarone and Mexilitine , has AICD 5. Morbid obesity due to excess calories, stable. The patient is at much higher risk for medical and surgical complications because of their obesity. This increases the difficulty and complexity of medical and surgical interventions and increases the chances of poor outcomes such as morbidity and mortality. 6. Diabetes mellitus, type 2, improved. PLAN: -stopped steroids 09/29, she would completed 6 days. -stop antibiotics, course completed. -continue bronchodilators, and anxiety medications. She did placing an appeal for discharge on September 29. Appeal denied, home 10/01. Time-Based Coding :: [TOTAL MINUTES] spent with patient and on the chart (including review of chart, obtaining history, exam, reviewing outside data, placing orders, documenting exam and treatment plan, and counseling patient) on [DATE]. Quality VTE Deep Vein Thrombosis/Pulmonary Embolism Present on Admission: No
[2024-09-30] MEDS: INSULIN GLARGINE 100 UNIT/ML 3ML PEN 12 UNIT SUBCUT (08:15)
[2024-09-30] MEDS: PHENOL LIQUID 100 SPRAYS/BOTTLE SPRAY MM (08:19)
[2024-09-30] MEDS: ENTRESTO 1 EACH PO (08:32)
[2024-09-30] MEDS: Mexiletine 150 mg capsule 150 EACH PO (08:33)
[2024-09-30 09:00] VITALS: BP 116/58; PULSE 56; RESP 19; TEMP 36.6; O2SAT 96
[2024-09-30 10:24] VITALS: PULSE 67; RESP 26; O2SAT 94
--- NOTE | 2024-09-30 12:45 | PC.NURSE ---
Pt up to use the restroom. stand by for assistance. pt did not want assistance. She was able to ambulate with walker. Encouraged to use the call light.
[2024-09-30] MEDS: ONDANSETRON 4 MG/2 ML INJ IV (12:56)
--- NOTE | 2024-09-30 13:19 | CM.DPNOTE ---
DCP note ROLLER LEVELER reviewed EMR per Guzman, received notice that appeal was denied. [facility] agreed with hospital dc. pt will need to leave by 1200 Wed 10/01 or be financially responsible. document scanned into chart. discussed pt in rounds. it is noteworthy that pt due to her PMH of diabetes should be on a carb consistent diet. in the past, pt has refused a carb consistent diet in favor for a general diet. per medical staff, general diet does not appear to be medically appropriate and will be switched to a carb consistent diet. ROLLER LEVELER brought copy of appeal decision to pt. pt reported she did not talk to someone on the phone ([facility] documentation said pt was notified at 0930 [place]). pt upset with this ROLLER LEVELER about not having been told until now. Pt reports she will speak with granddaughter about someone coming to get her either later today vs tomorrow. Asked to speak with provider. per BORING MACHINE OPERATOR HORIZONTAL, pt told her her granddaughter would be here soon to pick her up. ROLLER LEVELER spoke with (Mohinder?) at [facility]. confirmed have f2f/order and can continue with pt only need dc summary. CM team will send when completed. P: pt to return home today with family support and HH to follow. CM team will continue to follow as needed GEORGE Porter
--- NOTE | 2024-09-30 13:23 | P.DS_ITS ---
History of Present Illness History of Present Illness Chief complaint: CHEST CONGESTION, BODY ACHE Narrative: She was a 59-year-old female with history of severe COPD and recurrent pneumonia as well as COPD exacerbations. She has been ill for about 7 days with a cough and rhinorrhea. She became more ill for the last 3 days with progressive shortness a breath and nausea. Due to increased symptoms she presented to the ED and was found to be hypoxemic and hypotensive. She notes she was had nausea, vomiting, and diarrhea for 2-3 days. In the ED, she would negative COVID and flu PCR. She was given IV fluids, 2 L but remained hypotensive. A right arm PICC line was placed and pressors were started. She denies fevers, or chills. She does state that she never really has a fever. She also denies any rectal bleeding or hematemesis. She feels better on oxygen and with her blood pressure managed. Discharge Providers Provider Date of admission: 09/24/24 13:43 Discharge Date: 09/30/24 Primary care physician: Jolene Steen PA-C Consults: 09/24/24 14:56 Consult to Cardio/Pulmonary Rehabilitation Routine Comment: Physician Instructions: Evaluate and treat 09/26/24 15:25 Consult to Home Health Routine Comment: Reason For Exam: Home health upon discharge 09/27/24 14:30 Consult to Physical Therapy Evaluate & Treat Comment: Physician Instructions: Evaluate and Treat Discharge provider: Jai Thornton MD Summary Hospital Course Discharge Diagnosis: 1. Acute exacerbation of chronic obstructive pulmonary disease, present on admission and improved. 2. Acute and chronic respiratory failure with hypoxia, present on admission and improved. 3. Chronic systolic heart failure, stable. Severe chronic Systolic CHF LVEF 25% 4. Chronic anticoagulation, stable. On Chronic A/C / Apixaban , sec to Severe Cardiomyopathy/ h/o Cardiac arrythmias, been on Amiodarone and Mexilitine , has AICD 5. Morbid obesity due to excess calories, stable. The patient is at much higher risk for medical and surgical complications because of their obesity. This increases the difficulty and complexity of medical and surgical interventions and increases the chances of poor outcomes such as morbidity and mortality. 6. Diabetes mellitus, type 2, improved. 7. Septic shock secondary Pneumonia, present on admission and resolved. Hospital Course: She was initially hypotensive and required pressors and fluid resuscitation. She was have history of chronic systolic heart failure with a known EF of 25%. Blood pressure stabilized she was treated for pneumonia and COPD with exacerbation. She received antibiotics, bronchodilators, and steroids. She would slow improvement of symptoms. Steroids were stopped after day 7 as were antibiotics. She was felt to be stable for discharge on September 29, but decided to appeal the discharge. On September 30 she still felt short of breath with exertion and ultimately did state she was ready to go home. She was given a small refill for pain medication. She we will follow up with the primary care within the next week. Status at Discharge Cognitive/behavioral status at discharge: oriented Functional status at discharge: independent ambulation Overall status at discharge: patient is progressing back to baseline Time Spent with Patient Time spent: Greater than 30 minutes Exam Vital Signs (past 8 hours): - 09/30/24 06:45 09/30/24 09:00 09/30/24 09:43 Temperature 97.8 F Pulse Rate 65 56 L Respiratory Rate 26 H 19 Blood Pressure 116/58 L Pulse Oximetry 95 96 Oxygen Delivery Method Oximask Nasal Cannula Oxygen Flow Rate 3 3 Fraction of Inspired Oxygen 09/30/24 09:43 09/30/24 10:24 Temperature Pulse Rate 67 Respiratory Rate 26 H Blood Pressure Pulse Oximetry 94 Oxygen Delivery Method Nasal Cannula Oximask Oxygen Flow Rate 3 3 Fraction of Inspired Oxygen 32 Fraction of Inspired Oxygen 32 SaO2/FiO2 Ratio 293 Oxygen Delivery Method Oximask Oxygen Flow Rate 3 Narrative Exam Narrative: NAD, alert and oriented. Fluent speech. Lungs are notable for her wheezing with expiration which is fairly chronic feature of her exam, normal rate and effort. Heart is regular, no murmur gallop or rub. Abdomen is soft, non distended. Extremities are free of edema. Objective ECG Impression: Intervals [place] Rate: 95 P: -9 VT: QRS: 269 QRSD: 178 T: 101 QT: 472 QTc: 593 Interpretive Statements Ventricular-paced rhythm Imaging CT scan - chest: Radiologist's impression: 1. Suboptimal opacification of pulmonary arteries. No gross large central pulmonary emboli. Bilateral segmental and subsegmental pulmonary artery branches are poorly opacified. Small pulmonary emboli cannot be excluded. No thoracic aortic aneurysm or gross dissection. 2. Moderate size right upper lobe pneumonia extending to right hilar region. Follow-up until resolution is recommended to rule out underlying neoplastic process. Mild dependent atelectasis in posterior aspect of bilateral lower lobes. No pleural effusion or pneumothorax. 3. Cardiomegaly, no pericardial effusion. Pacemaker leads in place. No mediastinal or hilar lymphadenopathy. Chest x-ray: Radiologist's impression: IMPRESSION: Tip of PICC projects to the area of SVC. Labs 09/27/24 04:50 09/27/24 04:50 PFSH Medical History Cardiac arrhythmia Morbid obesity due to excess calories Elevated brain natriuretic peptide (BNP) level Acute and chronic respiratory failure with hypoxia Chronic anticoagulation Cervical spondylosis Neck pain Cervical radiculopathy CAD (coronary artery disease) Congestive heart failure COPD (chronic obstructive pulmonary disease) Surgical History AICD (automatic cardioverter/defibrillator) present H/O heart artery stent Social History household members: spouse lives independently: Yes Smoking Status: Current every day smoker alcohol intake: never Discharge Assessment & Plan Assessment and Plan Assessment: 1. Acute exacerbation of chronic obstructive pulmonary disease, present on admission and improved. 2. Acute and chronic respiratory failure with hypoxia, present on admission and improved. 3. Chronic systolic heart failure, stable. Severe chronic Systolic CHF LVEF 25% Plan of Treatment: Stable for discharge. Discharge Plan Discharge Plan Patient Disposition: Home Health Service Provider Discharge Comment: Stable for discharge with home health. Discharge orders & Medications Prescriptions: New oxycodone 5 mg capsule 5 mg PO Q8H PRN (Reason: pain) Qty: 14 0RF Continued amiodarone 200 mg tablet 100 mg PO DAILY Patient Comments: TAKE 1/2 (ONE-HALF) TABLET BY MOUTH ONCE DAILY Eliquis 5 mg tablet 5 mg PO BID Patient Comments: TAKE 1 TABLET BY MOUTH TWICE DAILY promethazine 25 mg tablet 25 mg PO Q6H PRN (Reason: Nausea) Patient Comments: TAKE 1 TABLET BY MOUTH EVERY 6 HOURS multivitamin Tablet 1 tab PO DAILY mexiletine 150 mg capsule 150 mg PO BID budesonide 0.5 mg/2 mL suspension for nebulization 0.5 mg inhalation BID montelukast 10 mg tablet 10 mg PO BEDTIME Jardiance 10 mg tablet 10 mg PO DAILY Entresto 24-26 mg tablet 1 tab PO BID aspirin 81 mg Tablet 81 mg PO DAILY cetirizine [All Day Allergy (cetirizine)] 10 mg Tablet 10 mg PO DAILY albuterol sulfate 90 mcg/actuation HFA aerosol inhaler 2 puff INHALATION Q4HR PRN (Reason: sob) Patient Comments: INHALE 2 PUFFS BY MOUTH UP TO EVERY 4 HOURS NEEDED FOR WHEEZING , COUGH OR SHORTNESS OF BREATH. USE WITH SPACER. diazepam [Valium] 5 mg tablet 5 mg PO BID PRN (Reason: anxiety) Qty: 14 0RF pantoprazole [Protonix] 40 mg tablet,delayed release (DR/EC) 40 mg PO DAILY PRN (Reason: gerd) fluticasone propionate 50 mcg/actuation spray,suspension 2 spray INTRANASAL BID furosemide 80 mg tablet 80 mg PO DAILY Discontinued oxycodone-acetaminophen 5-325 mg Tablet 1 tab PO Q6HR PRN (Reason: Pain, Severe (7-10)) Qty: 14 0RF Follow up/Referrals: Jolene Steen PA-C [Primary Care Provider] - Visit Report/Discharge Packet Instructions: How to Check Your Blood Glucose, Tips to Help You Stop Smoking, Pneumonia-Adult, DI for Pneumonia -- Adult, DI for Diabetes Type 2, DI for Sepsis -- Adult, What to Eat if You Have Diabetes Stand Alone Forms: Patient Portal/API, Stroke Signs & Symptoms Discharge Data Primary Care Provider: Jolene Steen VTE Deep Vein Thrombosis/Pulmonary Embolism Present on Admission: No
[2024-09-30] MEDS: OXYCODONE IR 5 MG TABLET PO (13:31)
--- NOTE | 2024-09-30 13:39 | PC.NURSE ---
pt asked for home meds to be returned to her from our pharmacy. Pharm was called. Pharm to deliver to RN.
[2024-09-30 14:14] VITALS: PULSE 65; RESP 24; O2SAT 95
--- NOTE | 2024-09-30 16:01 | PT-IP ANOTE ---
checked on pt this afternoon and stated that she is going home today and is getting ready to go home and does not want PT.
--- NOTE | 2024-09-30 16:16 | PC.NURSE ---
pt discharge instructions given, pt questions answered, Picc line removed, pt tolerated well, pt was taken down in wheel chair by health and safety technician, friend picked pt up at front door, pt has all belongings, and agreeable.
== END 2024-09-30 16:00 | disposition home health service (06) | DRG 871 ==
LOC: ED 10:49 → AC 13:43 → ICU 14:12 → AC 09-29 14:13
PROVIDERS: Internal Medicine; Pharmacist Pharmacist Clinician (PhC)/ Clinical Pharmacy Specialist; Admitting Provider Hospitalist; Emergency Provider Family Medicine; Family Provider Internal Medicine; PCP Physician Assistant Medical; Referring Provider Family Medicine; Visit Provider Hospitalist
DX: A41.9 Sepsis, unspecified organism (principal); J18.9 Pneumonia, unspecified organism; J96.21 Acute and chronic respiratory failure with hypoxia; R65.21 Severe sepsis with septic shock; J44.1 Chronic obstructive pulmonary disease with (acute) exacerbation; I50.22 Chronic systolic (congestive) heart failure; Z68.41 Body mass index [BMI] 40.0-44.9, adult; I42.8 Other cardiomyopathies; J44.0 Chronic obstructive pulmonary disease with (acute) lower respiratory infection; J96.12 Chronic respiratory failure with hypercapnia; E66.01 Morbid (severe) obesity due to excess calories; F17.200 Nicotine dependence, unspecified, uncomplicated; E87.6 Hypokalemia; E11.9 Type 2 diabetes mellitus without complications; R56.9 Unspecified convulsions; F41.9 Anxiety disorder, unspecified; I25.10 Atherosclerotic heart disease of native coronary artery without angina pectoris; G43.909 Migraine, unspecified, not intractable, without status migrainosus; I25.2 Old myocardial infarction; Z79.84 Long term (current) use of oral hypoglycemic drugs; Z79.01 Long term (current) use of anticoagulants; Z95.810 Presence of automatic (implantable) cardiac defibrillator; Z99.81 Dependence on supplemental oxygen
CPT/HCPCS: 0241U; 36569; 36592; 36600; 70450; 71045; 71275; 80048; 80053; 81003; 82272; 82805; 82962; 83605; 83735; 83880; 84145; 84484; 85025; 85610; 87797; 93005; 94640; 94660; 94760; 94762; 96365; 96367; 97116; 97162; 97530; 99284; 99291; J0696; J1171; J1815; J1885; J1938; J2405; J2543; J3475; J7613; Q9967